=== PATIENT | female | born 2000 | race Caucasian/White ===

== ENCOUNTER 2023-06-01 14:01 | Outpatient (OUT) | payer OTHER, BC, SELFPAY ==
--- NOTE | 2023-06-01 14:04 | US_ITS ---
[address] [address] Patient Name: FABIEN PERAZA MRN: [id number] date: 2000 Sex: F Assigned Patient Location: US Current Patient Location: US Accession/Order Number: [id number] Exam Date: 06/01/2023 14:04 Report Date: 06/01/2023 15:25 At the request of: MELO LAM Procedure: US OB transvaginal EXAMINATION: US OB transvaginal HISTORY: MISSED MENSES COMPARISON: No relevant comparison available. FINDINGS: Dsouza intrauterine gestation Gestational sac: 1.4 cm, 5 weeks 4 days CRL: 1.6 mm Yolk sac: 3.6 mm Heart rate: Not observed Cervix: Closed, 3.1 cm The uterus is normal, anteverted, anteflexed The ovaries are normal Clinical age: 8 weeks 5 days Clinical EARNEST: 01/06/2024 Ultrasound age: 5 weeks 4 days Ultrasound EARNEST: 01/28/2024 US/US OB transvaginal IMPRESSION: Early intrauterine gestation measuring 5 weeks 4 days Electronically authenticated by: JYOTHI GUZMAN Date: 06/01/2023 15:25
== END 2023-06-01 14:02 | disposition home or self-care (01) ==
LOC: US 14:03
PROVIDERS: Visit Provider Obstetrics & Gynecology
DX: N92.6 Irregular menstruation, unspecified (principal); Z34.91 Encounter for supervision of normal pregnancy, unspecified, first trimester; Z3A.01 Less than 8 weeks gestation of pregnancy
CPT/HCPCS: 76817

== ENCOUNTER 2023-06-07 08:00 | Outpatient (OUT) | payer OTHER, BC, SELFPAY ==
--- NOTE | 2023-06-07 08:02 | US_ITS ---
[address] [address] Patient Name: FABIEN PERAZA MRN: [id number] date: 2000 Sex: F Assigned Patient Location: Current Patient Location: Accession/Order Number: [id number] Exam Date: 06/07/2023 08:02 Report Date: 06/08/2023 02:42 At the request of: MELO LAM Procedure: US OB transvaginal EXAMINATION: US OB transvaginal HISTORY: VIABILITY COMPARISON: No relevant comparison available. FINDINGS: GESTATIONAL SAC: Present and normal appearing. YOLK SAC: Present and normal appearing. POLE: Present and normal appearing. CARDIAC: Present. UTERUS: Normal size and appearance. OVARIES: Right: Normal. Left: Normal. CERVIX: 4.4 cm in length and closed. CUL-DE-SAC: Normal. OTHER: None. AGE BY LMP: 9 weeks 4 days EARNEST BY LMP: 01/06/2024 AGE BY US CRL: 6 weeks 3 days EARNEST BY US CRL: 01/28/2024 US/US OB transvaginal IMPRESSION: 1. Single live intrauterine . Electronically authenticated by: JADE CASPER Date: 06/08/2023 02:42
== END 2023-06-07 08:01 | disposition home or self-care (01) ==
LOC: US 08:01
PROVIDERS: Visit Provider Obstetrics & Gynecology
DX: Z34.81 Encounter for supervision of other normal pregnancy, first trimester (principal); N92.6 Irregular menstruation, unspecified; Z3A.01 Less than 8 weeks gestation of pregnancy
CPT/HCPCS: 76817

== ENCOUNTER 2023-07-21 15:15 | Outpatient (OUT) | payer OTHER, BC, SELFPAY ==
--- OUTSIDE RECORDS SUMMARY | 2023-07-21 15:23 | XMS_ITS | CCD ---
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 Role Phone ROJAS, WICHO S Unavailable Unavailable ROJAS, WICHO S Unavailable Unavailable ROJAS, WICHO S Unavailable Unavailable ROJAS, WICHO S Unavailable Unavailable ROJAS, WICHO S Unavailable Unavailable ROJAS, WICHO S Unavailable Unavailable Radha Cuevas Primary Care Provider Catarino [place], Cari Smith Primary Care Provider Unav ailable Stephanie METAL TUBE CUTTER - POTATO CHIP FRIER, Nick Stein Primary Care Provid er Stephanie METAL TUBE CUTTER - POTATO CHIP FRIER, Nick Stein Primary Care Provid er Stephanie METAL TUBE CUTTER - POTATO CHIP FRIER, Nick Stein Primary Care Provid er NICK BROWN Primary Care Unavailable ZAK BEJARANO Admitting Unavailable ZAK BEJARANO Attending Unavailable STEPHANIE, NICK Stein Primary Care Unavailable PETE SOL Attending Unavailabl e PETE SOL Admitting Unavailabl e STEPHANIENICK SAHU Primary Care Unavailable ROLANDO, JUSTEEN Referring Unavailable STEPHANIE, NICK Stein Primary Care Unavailable JADE SOTO Referring Unavailable STEPHANIE, NICK Stein Primary Care Unavailable STEPHANIE, NICK Stein Referring Unavailable STEPHANIE, NICK Stein Primary Care Unavailable STEPHANIE, NICK Stein Referring Unavailable STEPHANIE, NICK Stein Primary Care Unavailable STEPHANIE, NICK Stein Referring Unavailable STEPHANIE, NICK Stein Primary Care Unavailable STEPHANIE, NICK Stein Referring Unavailable STEPHANIE, NICK Stein Primary Care Unavailable PETE SOL Referring Unavailabl e STEPHANIE, NICK Stein Primary Care Unavailable JADE SOTO Referring Unavailable MELO LAM Attending Unavailable NICK BROWN Primary Care Unavailable ROLANDO, JUSTEEN Referring Unavailable JACQUI RUSSELL Referring Unavailable STEPHANIE, NICK Stein Primary Care Unavailable STEPHANIE, NICK Stein Primary Care Unavailable ROLANDO, JUSTEEN Referring Unavailable ADITYA GALVAN Referring Unavailable STEPHANIE, NICK Stein Primary Care Unavailable Medications Current Medications Medication Drug Class(es) Dates Sig (Normalized) Sig (Original) acetaminophen 500 mg oral tablet (3 sources) Start: 09-25-2022 acetaminophen (TYLENOL) tablet 1,000 mg Start: 09-24-2022 acetaminophen (TYLENOL) tablet 650 mg take 2 tablets by mo uth every six hours as needed acetaminophen (TYLENOL) 325 MG tablet Take 650 mg by mouth every 6 hours as needed. 0 Active benzocaine 200 mg/ml / menthol 5 mg/ml topical spray (2 sources) Standardized Chemical Allergen Start: 09-24-2022 benzocaine-menthol (DERMOPLAST) 20-0.5 % spray 2 ml butorphanol tartrate 2 mg/ml injection (1 source) Opioid Agonist/Antagonis t Start: 09-24-2022 butorphanol (STADOL) injection 1 mg calcium chloride 0.0014 meq/ml / potassium chloride 0.004 meq/ml / sodium chloride 0.103 meq/ml / sodium lactate 0.028 meq/ml injectable solution (2 sources) Start: 09-24-2022 End: 09-25-2022 lactated ringers IV soln infusion 1 ml carboprost 0.25 mg/ml injection (1 source) Prostaglandin Analog Start: 09-24-2022 carboprost (HEMABATE) injection 250 mcg docusate sodium 100 mg oral capsule (2 sources) Start: 09-26-2022 take 1 capsule by mouth twice daily as needed for constipation docusate sodium (COLACE, DULCOLAX) 100 MG CAPS Take 100 mg by mouth 2 times daily as needed for Constipation 60 capsule 0 09/26/2022 Active Start: 09-25-2022 docusate sodiu m (COLACE) capsule 100 mg doxylamine succinate 10 mg / pyridoxine hydrochloride 10 mg delayed release oral tablet (1 source) Start: 02-16-2022 take 1 tablet by mouth once daily, then take 2 tablets by mouth once daily at bedtime, then take 1 tablet by mouth in the morning doxylamine-pyridoxine 10-10 MG TBEC Indications: Nausea and vomiting in Take 1 tablet by mouth daily i want the dose to be 2 tablets at bedtime nightly and one tablet in the am if needed 90 tablet 1 02/16/2022 Active ethinyl estradiol 0.03 mg / ferrous fumarate 75 mg / norethindrone 1.5 mg oral tablet (2 sources) Estrogen Start: 01-14-2020 Microgestin FE 1.5/30 1.5-30 MG-MCG Oral Tablet 01/14/2020 Provider: ethinyl estradiol 0.035 mg / norgestimate 0.25 mg oral tablet (1 source) Progestin, Estrogen Start: 03-15-2021 take 1 tablet by mouth once daily norgestimate-ethinyl estradiol (ORTHO-CYCLEN, 28,) 0.25-35 MG-MCG per tablet Indications: Irregular menstrual cycle Take 1 tablet by mouth daily 1 packet 12 03/15/2021 Active famotidine 20 mg oral tablet (1 source) Histamine-2 Receptor Antagonist Start: 09-25-2022 famotidine (PEPCID) tablet 20 mg ferrous sulfate 325 mg oral tablet (5 sources) Start: 09-25-2022 ferrous sulfate (IRON 325) tablet 325 mg Start: 09-14-2022 take 1 tablet by sharmaine twice daily ferrous sulfate (IRON 325) 325 (65 Fe) MG tablet Indications: Anemia during in third trimester Take 1 tablet by mouth 2 times daily 180 tablet 1 09/14/2022 Active ibuprofen 800 mg oral tablet (3 sources) Nonsteroidal Anti-inflammatory Drug Start: 09-26-2022 take 1 tablet by mouth every eight hours as needed for pain ibuprofen (ADVIL;MOTRIN) 800 MG tablet Take 1 tablet by mouth every 8 hours as needed for Pain 60 tablet 0 09/26/2022 Active Start: 09-25-2022 ibuprofen (ADV IL;MOTRIN) tablet 800 mg Start: 06-01-2013 take 1 tablet by sharmaine every six hours as needed for pain ibuprofen (IBU) 400 MG tablet Take 1 tablet by mouth every 6 hours as needed for Pain. 30 tablet 0 06/01/2013 Active Lactated Ringer's Solution (1 source) Start: 09-24-2022 lactated ringers bolus lanolin 1000 mg/ml topical cream (1 source) Start: 09-25-2022 lansinoh lanolin ointment 24 hr loratadine 10 mg / pseudoephedrine sulfate 240 mg extended release oral tablet (1 source) alpha-Adrenergic Agonist Start: 11-10-2015 take 10-240 mg by mouth once loratadine-pseudoephe drine (CLARITIN-D 24-HOUR) 10-240 MG per tablet Take 1 tablet by mouth daily 30 tablet 0 11/10/2015 Active 1 ml methylergonovine maleate 0.2 mg/ml injection (1 source) Ergot Derivative Start: 09-24-2022 methylergonovine (METHERGINE) injection 200 mcg miSOPROStol 0.1 mg oral tablet (1 source) Prostaglandin E1 Analog Start: 09-24-2022 miSOPROStol (CYTOTEC) tablet 900 mcg 1 ml nalbuphine hydrochloride 10 mg/ml injection (1 source) Opioid Agonist/Antagonist Start: 09-24-2022 nalbuphine (NUBAIN) injection 10 mg naloxone 0.4 mg in 10 mL sodium chloride syringe (1 source) Start: 09-24-2022 IntraVENous, PRN, Opioid Reversal, PRN if respiratory rate is less than 6 breaths per minute and patient is difficult to arouse., Starting on 09/24/22 at 2058 Notify provider STAT. Mix 9 mL of sodium chloride 0.9% with 0.4 mg (1 mL) of naloxone (NARCAN) in 10 mL syringe. (Note: dilution is 0.04 mg/mL) Giv e 0.08 mg (2 mL of special dilution), slow IV push, repeat up to 0.4 mg (10 mL) or until patient is responsive to physical stimulation and respiratory rate is equal to or greater than 6 breaths/min. &nb sp;Continue to observe, if no response within 3 minutes of administration of 0.4 mg (10 mL) total, repeat dose (0.4 mg as administered previously). Con centration 0.04 mg/mL nitrous oxide 50% inhalation 1 each (1 source) Start: 09-24-2022 nitrous oxide 50% inhalation 1 each ondansetron 4 mg disintegrating oral tablet (3 sources) Serotonin-3 Receptor Antagonist Start: 09-25-2022 ondansetron (ZOFRAN-ODT) disintegrating tablet 8 mg Start: 09-24-2022 ondansetron (Z OFRAN) injection 4 mg oxyCODONE hydrochloride 5 mg oral tablet (1 source) Opioid Agonist Start: 03-12-2023 oxyCODONE (NUPUR ICODONE) immediate release tablet 5 mg oxytocin (PITOCIN) 30 units in 500 mL infusion (2 sources) Start: 09-25-2022 oxytocin (ALVARO KAHLIL) 30 units in 500 mL infusion Start: 09-24-2022 oxytocin (ALVARO KAHLIL) 30 units in 500 mL infusion MV-Min-Fe Fum-FA-DH A ( 1 PO) (9 sources) MV-Min- Fe Fum-FA-DHA ( 1 PO) Take by mouth 0 Active 5 ml sodium chloride 9 mg/ml injection (6 sources) Start: 09-24-2022 0.9 % sodium c hloride infusion Start: 09-24-2022 sodium chlorid e flush 0.9 % injection 5-40 mL witch mt 500 mg/ml medicated pad (1 source) Start: 09-24-2022 witch mt-gl ycerin (TUCKS) pad Completed/Discontinued Medications Medication Drug Class(es) Dates Sig (Normalized) Sig (Original) 10 ml ePHEDrine sulfate 5 mg/ml injection (1 source) alpha-Adrenergic Agonist, beta-Adrenergic Agonist, Norepinephrine Releasing Agent Start: 09-24-2022 5 mg, IntraVENous, EVERY 5 MIN PRN, 3 doses, Starting on 09/24/22 at 2100, Until Discontinued, hypotension please call anesthesia prior to dosing 200 ml ropivacaine hydrochloride 2 mg/ml injection (1 source) Amide Local Anesthetic Start: 09-24-2022 8 mL/hr, Epidural, CONTINUOUS, Starting on 09/24/22 at 2130, Until Discontinued Until delivery 100 ml tranexamic acid 10 mg/ml injection (1 source) Antifibrinolytic Agent Start: 09-24-2022 End: 09-25-2022 tranexamic acid-NaCl IVPB premix 1,000 mg Problems Active Problems Problem Classification Problem Date Documented Da te Episodic/Chronic Cardiac dysrhythmias (2 sources) Postural orthostatic tachycardia syndrome ; Translations: [POTS (postural orthostatic tachycardia syndrome)] Chronic Conditions associated with dizziness or vertigo (3 sources) Lightheadedness; Translations: [Dizziness and giddiness] Onset: 08-16-2022 Episodic Early or threatened labor (11 sources) Premature uterine contraction; Translations: [False labor before 37 completed weeks of gestation, unspecified trimester] Onset: 08-02-2022 Episodic Hypertension complicating ; childbirth and the puerperium (4 sources) Elevated blood pressure; Translations: [Unspecified maternal hypertension, unspecified trimester] Onset: 09-14-2022 Chronic Immunizations and screening for infectious disease (2 sources) Exposure to communicable disease; Translations: [Exposure To Contagious Viral Disease] Onset: 01-14-2020 Episodic Nonspecific chest pain (2 sources) Chest pain; Translations: [Chest pain, unspecified] Onset: 08-16-2022 Episodic Other circulatory disease (1 source) Postural orthostatic tachycardia syndrome ; Translations: [Postural orthostatic tachycardia syndrome (POTS)] Onset: 08-16-2022 Episodic Other non-traumatic joint disorders (1 source) Hip pain; Translations: [Hip Pain] Onset: 10-12-2017 Episodic Other screening for suspected conditions (not mental disorders or infectious disease) (3 sources) Abnormal results function studies of central nervous system; Translations: [Abnormal results of other function studies of central nervous system] Onset: 08-16-2022 Episodic Polyhydramnios and other problems of amniotic cavity (4 sources) Prolonged rupture of membranes; Translations: [Premature rupture of membranes, unspecified as to length of time between rupture and onset of labor, unspecified weeks of gestation] Onset: 09-24-2022 Episodic Residual codes; unclassified (1 source) Gestation period, 29 weeks; Translations: [29 weeks gestation of ] Episodic Residual codes; unclassified (1 source) Gestation period, 36 weeks; Translations: [36 weeks gestation of ] Episodic Residual codes; unclassified (1 source) 29 weeks gestation of ; Translations: [29 weeks gestation of ] Onset: 08-16-2022 Episodic Unclassified (1 source) Hip Pain / [id number]() Onset: 10-12-2017 Past or Other Problems Problem Classification Problem Date Documented Da te Episodic/Chronic Cardiac dysrhythmias (3 sources) Palpitations; Translations: [Palpitations] Onset: 01-13-2022 Episodic Other complications of (1 source) Uterine size-date discrepancy, third trimester; Translations: [Uterine size-date discrepancy, third trimester] Onset: 09-08-2022 Episodic Other connective tissue disease (2 sources) Pain in right thigh; Translations: [Pain in right thigh] Onset: 09-21-2017 Episodic Other and delivery including normal (12 sources) Normal ; Translations: [Encounter for supervision of normal , unspecified, unspecified trimester] Onset: 02-21-2022 Episodic Residual codes; unclassified (1 source) 36 weeks gestation of ; Translations: [36 weeks gestation of ] Onset: 09-14-2022 Episodic Residual codes; unclassified (1 source) 35 weeks gestation of ; Translations: [35 weeks gestation of ] Onset: 09-08-2022 Episodic Unclassified (2 sources) Finding of body mass index; Translations: [Body Mass Index] Onset: 01-14-2020 NEGATED: Highlighted row has been ruled out!Unclassified (1 source) No known active problems 02-21-2022 Results Test Name Value Interpretation Reference Range Facil ity Surgical Pathologyon 023 Surgical Pathology (NOTE) -- Diagnosis -- PLACENTA, DELIVERED: -THIRD TRIMESTER PLACENTA WITH THREE-VESSEL CORD WITH FOCAL MINIMAL ACUTE INFLAMMATION OF UMBILICAL VEIN. -UNREMARKABLE MEMBRANES. -PLACENTAL DISC WITH FOCAL FIBROSIS AND ORGANIZING FIBRIN AT MATERNAL SURFACE AND ADHERENT BLOOD CLOT TO MATERNAL SURFACE. Artem Jones M.D. Electronically Signed Out [email or web address]/27/2022 Clinical Information Pre-op Diagnosis: CAN x 1, CORD AROUND BODY, FOCAL ABRUPTION NOTED BY PHYSICIAN Operative Findings: PLACENTA tm Source of Specimen A: PLACENTA Gross Description FABIEN PERAZA, PLACENTA Placenta with attached membranes and umbilical cord. Also received within the specimen container is a 6.0 x 5.0 x 2.0 cm aggregate of red gelatinous blood clot. UMBILICAL CORD Length: 33.6 cm Diameter: 1.5 cm True knots: No Number of vessels: 3 Spiraling: Longo to pale yellow and loosely coiled Insertion into surface: Eccentric, 2.8 cm to the disc edge MEMBRANES Color: Longo, thin and translucent with a marginal insertion Meconium staining: No SURFACE Color: Longo-blue and well-vascularized Subchorionic fibrin: Patchy and marginal comprising involves less than 5% of the disc MATERNAL SURFACE Cotyledons: -All present and intact: Yes with adherent red gelatinous blood clot, measuring up to 7.5 cm -Focal lesions: There is a 1.7 cm longo, fibrotic and focally cystic lesion, 1.5 cm to the disc edge. This area comprises less than 5% of the disc volume. Placental size: 17.5 x 15.5 x 4.0 cm Shape: Circular Weight: 583 grams Number of cassettes: 5c, with fibrotic lesion 4 and 5 with maternal surface and adherent blood clot and focally ragged maternal surface. tm Microscopic Description Umbilical cord: Focal minimal acute inflammation of umbilical vein. Membranes: Unremarkable Meconium staining: No Infarcts: No Intervillous thrombi: No Subchorionic fibrin: Not significantly increased Villous maturation: Appropriate Nucleated erythrocytes in villous capillaries: Not increased Other: Few microcalcifications, focal fibrosis and organizing fibrin at maternal surface and adherent blood clot to maternal surface. SURGICAL PATHOLOGY CONSULTATION Patient Name: FABIEN PERAZA [facility] Rec: [id number] Path Number: [id number] [facility] [address] [place] [id number] [facility] Comment on above: Performed By: #### U CGP #### [facility] [address] [place] [address] Single Fold Machine Operator: Diego Bashir MD Type + Screenon 09-25-2022 Type + Screen Sample Expiration 09/27/2022,2359 Arm Band Number [id number] ABO/Rh(D) A POSITIVE Antibody Screen NEGATIVE [facility] Comment on above: Performed By: #### U CGP #### [facility] [address] [place] [address] Single Fold Machine Operator: Diego Bashir MD CBC with Auto Differentialon 09-24-2022 Absolute Eos # 0.08 [facility] Absolute Immature Granulocyte 0.11 [facility] Absolute Lymph # 2.52 [facility] [email or web address] Absolute Mcminn # 0.80 [facility] [email or web address] Basophils (Bld) [#/Vol] 0.05 10*3/uL [facility] Basophils/100 WBC (Bld) 1 % 0 - 2 % [facility] Eosinophils/100 WBC (Bld) 1 % 1 - 4 % [facility] Hematocrit (Bld) [Volume fraction] 31.9 % Low 36.3 - 47.1 % [facility] Hemoglobin (Bld) [Mass/Vol] 10.5 g/dL Low 11.9 - 15.1 g/dL [facility] Immature granulocytes/100 WBC (Bld) 1 % High 0 [facility] Interpretation and review of laboratory results Abnormal [facility] Lymphocytes/100 WBC (Bld) 25 % 24 - 43 % [facility] MCH (RBC) [Entitic mass] 25.1 pg Low 25.2 - 33.5 pg [facility] MCHC (RBC) [Mass/Vol] 32.9 g/dL 28.4 - 34.8 g/dL [facility] MCV (RBC) [Entitic vol] 76.3 fL Low 82.6 - 102.9 fL [facility] Monocytes/100 WBC (Bld) 8 % 3 - 12 % [facility] NRBC Automated 0.0 0.0 per 100 WBC [facility] Platelet distribution width (Bld) [Ratio] 14.7 % High 11.8 - 14.4 % [facility] Platelet mean volume (Bld) [Entitic vol] 8.7 fL 8.1 - 13.5 fL [facility] Platelets (Bld) [#/Vol] 298 10*3/uL [facility] RBC (Bld) [#/Vol] 4.18 10*6/uL 3.95 - 5.11 m/uL [facility] Segmented neutrophils/100 WBC (Bld) 64 % 36 - 65 % [facility] Segs Absolute 6.71 [facility] WBC (Bld) [#/Vol] 10.3 10*3/uL [facility] CBC with Diffon 09-24-2022 Abs. Basophil 0.05 k/uL Normal 0.00-0.20 [facility] Comment on above: Performed By: #### U CGP #### [facility] [employer] [address] [place], [place] [id number] Single Fold Machine Operator: Diego Bashir MD Abs.Imm.Granulocyte 0.11 k/uL Normal 0.00-0.30 [facility] Comment on above: Performed By: #### U CGP #### [address] [address] Single Fold Machine Operator: Diego Bashir MD Abs.Neutrophil (Seg) 6.71 k/uL Normal 1.50-8.10 [facility] Comment on above: Performed By: #### U CGP #### [address] [address] Single Fold Machine Operator: Diego Bashir MD Basophils/100 WBC (Bld) 1 % Normal 0-2 [facility] Comment on above: Performed By: #### U CGP #### [address] [address] Single Fold Machine Operator: Diego Bashir MD Eosinophils (Bld) [#/Vol] 0.08 10*3/uL Normal 0.00-0.44 [facility] Comment on above: Performed By: #### U CGP #### [address] [address] Single Fold Machine Operator: Diego Bashir MD Eosinophils/100 WBC (Bld) 1 % Normal 1-4 [facility] Comment on above: Performed By: #### U CGP #### [address] [address] Single Fold Machine Operator: Diego Bashir MD Erythrocyte distribution width (RBC) [Ratio] 14.7 % High 11.8-14.4 [facility] Comment on above: Performed By: #### U CGP #### [address] [address] Single Fold Machine Operator: Diego Bashir MD Hematocrit (Bld) [Volume fraction] 31.9 % Low 36.3-47.1 [facility] Comment on above: Performed By: #### U CGP #### [address] [address] Single Fold Machine Operator: Diego Bashir MD Hemoglobin (Bld) [Mass/Vol] 10.5 g/dL Low 11.9-15.1 [facility] Comment on above: Performed By: #### U CGP #### [address] [address] Single Fold Machine Operator: Diego Bashir MD Immature granulocytes/100 WBC (Bld) 1 % High 0 [facility] Comment on above: Performed By: #### U CGP #### [address] [address] Single Fold Machine Operator: Diego Bashir MD Lymphocytes (Bld) [#/Vol] 2.52 10*3/uL Normal 1.10-3.70 [facility] Comment on above: Performed By: #### U CGP #### [address] [address] Single Fold Machine Operator: Diego Bashir MD Lymphocytes/100 WBC (Bld) 25 % Normal 24-43 [facility] Comment on above: Performed By: #### U CGP #### [address] [address] Single Fold Machine Operator: Diego Bashir MD MCH (RBC) [Entitic mass] 25.1 pg Low 25.2-33.5 [facility] Comment on above: Performed By: #### U CGP #### [address] [address] Single Fold Machine Operator: Diego Bashir MD MCHC (RBC) [Mass/Vol] 32.9 g/dL Normal 28.4-34.8 [facility] Comment on above: Performed By: #### U CGP #### [address] [address] Single Fold Machine Operator: Dieog Bashir MD MCV (RBC) [Entitic vol] 76.3 fL Low 82.6-102.9 [facility] Comment on above: Performed By: #### U CGP #### [employer] [address] Single Fold Machine Operator: Diego Bashir MD Monocytes (Bld) [#/Vol] 0.80 10*3/uL Normal 0.10-1.20 [facility] Comment on above: Performed By: #### U CGP #### [address] [address] Single Fold Machine Operator: Diego Bashir MD Monocytes/100 WBC (Bld) 8 % Normal 3-12 [facility] Comment on above: Performed By: #### U CGP #### [address] [address] Single Fold Machine Operator: Diego Bashir MD Neutrophil (Seg) 64 % Normal 36-65 [facility] Comment on above: Performed By: #### U CGP #### [address] [address] Single Fold Machine Operator: Diego Bashir MD NRBC Automated 0.0 per 100 WBC Normal 0.0 [facility] Comment on above: Performed By: #### U CGP #### [address] [address] Single Fold Machine Operator: Diego Bashir MD Platelet mean volume (Bld) [Entitic vol] 8.7 fL Normal 8.1-13.5 [facility] Comment on above: Performed By: #### U CGP #### [address] [address] Single Fold Machine Operator: Diego Bashir MD Platelets (Bld) [#/Vol] 298 10*3/uL Normal 138-453 [facility] Comment on above: Performed By: #### U CGP #### [address] [address] Single Fold Machine Operator: Diego Bashir MD RBC (Bld) [#/Vol] 4.18 10*6/uL Normal 3.95-5.11 [facility] Comment on above: Performed By: #### U CGP #### [facility] [address] [place] [address] Single Fold Machine Operator: Diego Bashir MD WBC (Bld) [#/Vol] 10.3 10*3/uL Normal 3.5-11.3 [facility] Comment on above: Performed By: #### U CGP #### [address] [address] Single Fold Machine Operator: Diego Bashir MD Comp Metabolic Profon 2022 Albumin [Mass/Vol] 3.5 g/dL Normal 3.5-5.2 [facility] Comment on above: Performed By: #### U CGP #### [address] [address] Single Fold Machine Operator: Diego Bashir MD Albumin/Glob Ratio 1.1 Normal 1.0-2.5 [facility] Comment on above: Performed By: #### U CGP #### [address] [address] Single Fold Machine Operator: Diego Bashir MD Alkaline Phos 140 U/L High 35-104 [facility] Comment on above: Performed By: #### U CGP #### [address] [address] Single Fold Machine Operator: Diego Bashir MD ALT [Catalytic activity/Vol] 8 U/L Normal 5-33 [facility] Comment on above: Performed By: #### U CGP #### [address] [address] Single Fold Machine Operator: Diego Bashir MD Anion gap [Moles/Vol] 15 mmol/L Normal 9-17 [facility] Comment on above: Performed By: #### U CGP #### [address] [address] Single Fold Machine Operator: Diego Bashir MD AST [Catalytic activity/Vol] 14 U/L Normal <32 [facility] Comment on above: Performed By: #### U CGP #### [address] [place] [address] Single Fold Machine Operator: Diego Bashir MD Bilirubin [Mass/Vol] 0.3 mg/dL Normal 0.3-1.2 [facility] Comment on above: Performed By: #### U CGP #### [address] [address] Single Fold Machine Operator: Diego Bashir MD BUN/CRE Ratio 7 Low 9-20 [facility] Comment on above: Performed By: #### U CGP #### [address] [address] Single Fold Machine Operator: Diego Bashir MD Calcium [Mass/Vol] 8.9 mg/dL Normal 8.6-10.4 [facility] Comment on above: Performed By: #### U CGP #### [address] [address] Single Fold Machine Operator: Diego Bashir MD Chloride [Moles/Vol] 103 mmol/L Normal 98-107 [facility] Comment on above: Performed By: #### U CGP #### [address] [address] Single Fold Machine Operator: Diego Bashir MD CO2 [Moles/Vol] 18 mmol/L Low 20-31 [facility] Comment on above: Performed By: #### U CGP #### [address] [address] Single Fold Machine Operator: Diego Bashir MD Creatinine [Mass/Vol] 0.42 mg/dL Low 0.50-0.90 [facility] Comment on above: Performed By: #### U CGP #### [address] [address] Single Fold Machine Operator: Diego Bashir MD GFR/1.73 sq M.predicted among non-blacks MDRD (S/P/Bld) [Vol rate/Area] mL/min/{1.73_m2} Normal >60 [facility] Comment on above: Result Comment: These results are not intended for use in patients <18 years of age. eGFR results are calculated without a race factor using the 2020 CKD-EPI equation. Careful clinical correlation is recommended, particularly when comparing to results calculated using previous equations. The CKD-EPI equation is less accurate in patients with extremes of muscle mass, extra-renal metabolism of creatine, excessive creatine ingestion, or following therapy that affects renal tubular secretion. Performed By: #### U CGP #### [facility] [place] [address] Single Fold Machine Operator: Diego Bashir MD Glucose [Mass/Vol] 76 mg/dL Normal 70-99 [facility] Comment on above: Performed By: #### U CGP #### [facility] [address] [place] [address] Single Fold Machine Operator: Diego Bashir MD Potassium [Moles/Vol] 3.6 mmol/L Low 3.7-5.3 [facility] Comment on above: Performed By: #### U CGP #### [facility] [place] [address] Single Fold Machine Operator: Diego Bashir MD Protein [Mass/Vol] 6.6 g/dL Normal 6.4-8.3 [facility] Comment on above: Performed By: #### U CGP #### [facility] [address] [place] [address] Single Fold Machine Operator: Diego Bashir MD Sodium [Moles/Vol] 136 mmol/L Normal 135-144 [facility] Comment on above: Performed By: #### U CGP #### [facility] [place] [address] Single Fold Machine Operator: Diego Bashir MD Urea nitrogen [Mass/Vol] 3 mg/dL Low 6-20 [facility] Comment on above: Performed By: #### U CGP #### [facility] [address] [place] [address] Single Fold Machine Operator: Diego Bashir MD [facility] 09-24-2022 Albumin [Mass/Vol] 3.5 g/dL 3.5 - 5.2 g/dL [facility] Albumin/Globulin [Mass ratio] 1.1 {ratio} 1.0 - 2.5 [facility] ALP [Catalytic activity/Vol] 140 U/L High 35 - 104 U/L [facility] ALT [Catalytic activity/Vol] 8 U/L 5 - 33 U/L [facility] Anion gap [Moles/Vol] 15 mmol/L 9 - 17 mmol/L [facility] AST [Catalytic activity/Vol] 14 U/L NINF - 32 U/L [facility] Bilirubin [Mass/Vol] 0.3 mg/dL 0.3 - 1.2 mg/dL [facility] Calcium [Mass/Vol] 8.9 mg/dL 8.6 - 10.4 mg/dL [facility] Chloride [Moles/Vol] 103 mmol/L 98 - 107 mmol/L [facility] CO2 [Moles/Vol] 18 mmol/L Low 20 - 31 mmol/L [facility] Creatinine [Mass/Vol] 0.42 mg/dL Low 0.50 - 0.90 mg/dL [facility] GFR/1.73 sq M.predicted MDRD (S/P/Bld) [Vol rate/Area] - [facility] Comment on above: These results are not intended for use in patients <18 years of age. eGFR results are calculated without a race factor using the 2020 CKD-EPI equation. Careful clinical correlation is recommended, particularly when comparing to results calculated using previous equations. The CKD-EPI equation is less accurate in patients with extremes of muscle mass, extra-renal metabolism of creatine, excessive creatine ingestion, or following therapy that affects renal tubular secretion. Glucose [Mass/Vol] 76 mg/dL 70 - 99 mg/dL [facility] Interpretation and review of laboratory results Abnormal [facility] Potassium [Moles/Vol] 3.6 mmol/L Low 3.7 - 5.3 mmol/L [facility] Protein [Mass/Vol] 6.6 g/dL 6.4 - 8.3 g/dL [facility] Sodium [Moles/Vol] 136 mmol/L 135 - 144 mmol/L [facility] Urea nitrogen [Mass/Vol] 3 mg/dL Low 6 - 20 mg/dL [facility] Urea nitrogen/Creatinine (Bld) [Mass ratio] 7 Low 9 - 20 [facility] DRUG SCREEN MULTI URINEon Amphetamine Screen, Ur Negative NEGATIVE [facility] Comment on above: (Positive cutoff 1000 ng/mL) Barbiturate Screen, Ur Negative NEGATIVE [facility] Comment on above: (Positive cutoff 200 ng/mL) Benzodiazepine Screen, Urine Negative NEGATIVE [facility] Comment on above: (Positive cutoff 200 ng/mL) Buprenorphine Urine Negative NEGATIVE [facility] Comment on above: (Positive cutoff 5 ng/ml) Cannabinoid Scrn, Ur Negative NEGATIVE [facility] Comment on above: (Positive cutoff 50 ng/mL) Cocaine Metabolite, Urine Negative NEGATIVE [facility] Comment on above: (Positive cutoff 300 ng/mL) Fentanyl, Ur Negative NEGATIVE [facility] Comment on above: (Positive cutoff 5 ng/ml) Methadone Screen, Urine Negative NEGATIVE [facility] Comment on above: (Positive cutoff 300 ng/mL) Opiates, Urine Negative NEGATIVE [facility] Comment on above: (Positive cutoff 300 ng/mL) Oxycodone Screen, Ur Negative NEGATIVE [facility] Comment on above: (Positive cutoff 100 ng/mL) Phencyclidine, Urine Negative NEGATIVE [facility] Comment on above: (Positive cutoff 25 ng/mL) [facility] Drug Scr, Abuse, Uron 2022 Amphetamine(s),Ur Negative Normal NEG [facility] Comment on above: Result Comment: (Positive cutoff 1000 ng/mL) Performed By: #### D AU #### [facility] [address] [place] [address] Single Fold Machine Operator: Artem Jones MD Barbiturate(s),Ur Negative Normal NEG [facility] Comment on above: Result Comment: (Positive cutoff 200 ng/mL) Performed By: #### D AU #### [address] [place], [place] [phone] Single Fold Machine Operator: Artem Jones MD Benzodiazepine(s) Negative Normal NEG [facility] Comment on above: Result Comment: (Positive cutoff 200 ng/mL) Performed By: #### D AU #### [address] [place], [place] [phone] Single Fold Machine Operator: Artem Jones MD Buprenorphrine, Ur Negative Normal NEG [facility] Comment on above: Result Comment: (Positive cutoff 5 ng/ml) Performed By: #### D AU #### [address] [place], [place] [id number] Single Fold Machine Operator: Artem Jones MD Cannabinoid(s),Ur Negative Normal [facility] Comment on above: Result Comment: (Positive cutoff 50 ng/mL) Performed By: #### D AU #### [address] [place] [address] Single Fold Machine Operator: Artem Jones MD Cocaine Metabolite Negative [facility] Comment on above: Result Comment: (Positive cutoff 300 ng/mL) Performed By: #### D AU #### [address] [place] [address] Single Fold Machine Operator: Artem Jones MD Fentanyl, Urine Negative [facility] Comment on above: Result Comment: (Positive cutoff 5 ng/ml) Performed By: #### D AU #### [address] [place], [place] [phone] Single Fold Machine Operator: Artem Jones MD Methadone Ql (U) Negative Normal NEG [facility] Comment on above: Result Comment: (Positive cutoff 300 ng/mL) Performed By: #### D AU #### [address] [place], [place] [phone] Single Fold Machine Operator: Artem Jones MD Opiate(s), Ur Negative Normal NEG [facility] Comment on above: Result Comment: (Positive cutoff 300 ng/mL) Performed By: #### D AU #### [address] [place], [place] [phone] Single Fold Machine Operator: Artem Jones MD Oxycodone, Urine Negative Normal NEG [facility] Comment on above: Result Comment: (Positive cutoff 100 ng/mL) Performed By: #### D AU #### [address] [place], [place] 1039383 Single Fold Machine Operator: Artem Jones MD Phencyclidine, Ur Negative Normal NEG [facility] Comment on above: Result Comment: (Positive cutoff 25 ng/mL) Performed By: #### D AU #### [address] [place], [place] [phone] Single Fold Machine Operator: Artem Jones MD Lactate Dehydrogenaseon 09-14 LDH [Catalytic activity/Vol] 158 U/L Normal 135-214 [facility] Comment on above: Performed By: #### U CGP #### [facility] [address] [place] [address] Single Fold Machine Operator: Diego Bashir MD Cholesterol in LDL [Mass/Vol] 158 U/L 135 - 214 U/L [facility] Microscopic Urinalysison Bacteria, UA 2+ Abnormal None [facility] Epithelial Cells UA 0 TO [address] [facility] Interpretation and review of laboratory results Abnormal [facility] Mucus, UA TRACE Abnormal None [facility] RBC clumps Auto (Urine sed) [#/Area] 0 TO 2 [facility] WBC, UA 0 TO 2 [facility] No Panel Informationon 09-24 [facility] Protein / Creatinine Ratio, Urineon 03-11-2023 Creatinine, Ur 96.6 mg/dL 28.0 - 217.0 mg/dL [facility] Protein (U) [Mass/Vol] 17 mg/dL [facility] Comment on above: No normal range esta blished. Urine Total Protein Creatinine Ratio 0.18 0.00 - 0.20 [facility] Protein,Tot,Clark Uron 2022 Creatinine [Mass/Vol] 96.6 mg/dL Normal 28.0-217.0 [facility] Comment on above: Performed By: #### P RENAT #### [facility] [employer] [facility] [place] [address] Single Fold Machine Operator: Diego Bashir MD [facility] [address] [place] [address] [place] [address] Single Fold Machine Operator: Artem Jones MD Tot Prot. Conc. 17 mg/dL Normal [facility] Comment on above: Result Comment: No n ormal range established. Performed By: #### P RENAT #### [facility] [employer] [facility] [place] [address] Single Fold Machine Operator: Diego Bashir MD [facility] [address] [place] [address] [place]. [place] [phone] Single Fold Machine Operator: Artem Jones MD TP/Cre Ratio 0.18 Normal 0.00-0.20 [facility] Comment on above: Performed By: #### P RENAT #### [address] [address] Single Fold Machine Operator: Diego Bashir MD [facility] [address] [place] [address] [place] [address] Single Fold Machine Operator: Artem Jones MD TYPE AND SCREENon 09-24-2022 ABO/Rh Positive [facility] Arm Band Number [id number] [facility] Expiration Date 09/27/2022,2359 [facility] Urinalysison 09-24-2022 Bilirubin Urine Negative NEGATIVE [facility] Color, UA Yellow Yellow [facility] Glucose Auto test strip (U) [Mass/Vol] Negative NEGATIVE [facility] Interpretation and review of laboratory results Abnormal [facility] Ketones (U) [Mass/Vol] TRACE Abnormal NEGATIVE [facility] Leukocyte esterase Auto test strip Ql (U) Negative NEGATIVE [facility] Nitrite Auto test strip Ql (U) Negative NEGATIVE [facility] Protein (U) [Mass/Vol] 7.5 mg/dL 5.0 - 9.0 [facility] Protein (U) [Mass/Vol] Negative NEGATIVE [facility] Specific Hyden, UA 1.010 1.010 - 1.[address] [facility] Turbidity UA Clear Clear [facility] Urine Hgb Negative NEGATIVE [facility] Urobilinogen, Urine Normal Normal [facility] Urinalysis, Routineon 2022 Bilirubin, SemiQt,Ur Negative Normal NEG [facility] Comment on above: Performed By: #### U CGP #### [facility] [address] [place] [address] Single Fold Machine Operator: Diego Bashir MD Blood, Urine Negative Normal [facility] Comment on above: Performed By: #### U CGP #### [facility] [address] [phone] Single Fold Machine Operator: Diego Bashir MD Clarity (U) Clear Normal CLEAR [facility] Comment on above: Performed By: #### U CGP #### [facility] [address] [place] [address] Single Fold Machine Operator: Diego Bashir MD Color (U) Yellow Normal YEL [facility] Comment on above: Performed By: #### U CGP #### [facility] [address] [place] [address] Single Fold Machine Operator: Diego Bashir MD Glucose Ql (U) Negative Normal NEG [facility] Comment on above: Performed By: #### U CGP #### [address] [address] Single Fold Machine Operator: Diego Bashir MD Ketones Ql (U) TRACE Abnormal NEG [facility] Comment on above: Performed By: #### U CGP #### [address] [address] Single Fold Machine Operator: Diego Bashir MD Leukocyte esterase Test strip Ql (U) Negative Normal NEG [facility] Comment on above: Performed By: #### U CGP #### [address] [address] Single Fold Machine Operator: Diego Bashir MD Nitrite,Ur Negative Normal NEG [facility] Comment on above: Performed By: #### U CGP #### [address] [address] Single Fold Machine Operator: Diego Bashir MD PH,Ur 7.5 Normal 5.0-9.0 [facility] Comment on above: Performed By: #### U CGP #### [address] [address] Single Fold Machine Operator: Diego Bashir MD Protein Ql (U) Negative Normal NEG [facility] Comment on above: Performed By: #### U CGP #### [address] [address] Single Fold Machine Operator: Diego Bashir MD Spec. Hyden,Ur 1.010 Normal 1.010-1.020 [facility] Comment on above: Performed By: #### U CGP #### [address] [address] Single Fold Machine Operator: Diego Bashir MD Urobilinogen,Ur Normal Normal NORM [facility] Comment on above: Performed By: #### U CGP #### [address] [address] Single Fold Machine Operator: Diego Bashir MD Urinalysis,Microon 3 Bacteria 2+ Abnormal NONE [facility] Comment on above: Performed By: #### U CGP #### [address] [address] Single Fold Machine Operator: Diego Bashir MD Epithelial cells LM Ql (Urine sed) 0 TO 2 Normal 0-25 [facility] Comment on above: Performed By: #### U CGP #### [address] [address] Single Fold Machine Operator: Diego Bashir MD Mucus Strands TRACE Abnormal NONE [facility] Comment on above: Performed By: #### U CGP #### [address] [address] Single Fold Machine Operator: Diego Bashir MD Urine RBC's 0 TO 2 Normal 0-2 [facility] Comment on above: Performed By: #### U CGP #### [address] [address] Single Fold Machine Operator: Diego Bashir MD Urine WBC's 0 TO 2 Normal 0-5 [facility] Comment on above: Performed By: #### U CGP #### [address] [address] Single Fold Machine Operator: Diego Bashir MD Rule Out Grp.B Strepon 09-18 Rule Out Grp.B Strep Specimen Descriptio n .VAGINA Culture NEGATIVE FOR GROUP B STREPTOCOCCI Report Status FINAL 09/18/2022 Normal [facility] Comment on above: Performed By: #### R OGBS #### [address] [address] Single Fold Machine Operator: Diego Bashir MD EVENT MONITORon 09-16-2022 [address] [address] EVENT MONITOR PATIENT NAME: FABIEN PERAZA : 2000 MED REC NO: [id number] ROOM: ACCOUNT NO: [id number] ADMIT DATE: 08/16/2022 PROVIDER: Jade Soto MD CARDIOVASCULAR DIAGNOSTIC DEPARTMENT DATE OF STUDY: 08/16/2022 ORDERING PROVIDER: Jade Soto MD PRIMARY CARE PROVIDER: ASHELY Padilla INTERPRETING PHYSICIAN: Jade Soto MD DIAGNOSIS: Dizziness and giddiness. PHYSICIAN INTERPRETATION: 1. Predominant rhythm: Normal sinus rhythm. 2. PAC 0.01%. 3. PVC 0.01%. Multiple symptoms were reported and were associated with heart rates in the 100-110 bpm range. Clinical correlation required. JADE SOTO MD SB/JENIFER_EDIT Doc#: Unknown CC: ASHELY Padilla Normal [facility] CBCon 09-14-2022 Erythrocyte distribution width (RBC) [Ratio] 14.4 % Normal 11.8-14.4 [facility] Comment on above: Performed By: #### P RENAT #### [address] [address] Single Fold Machine Operator: Diego Bashir MD [address] [place] [address] Single Fold Machine Operator: Artem Jones MD Hematocrit (Bld) [Volume fraction] 31.2 % Low 36.3-47.1 [facility] Comment on above: Performed By: #### P RENAT #### [address] [address] Single Fold Machine Operator: Diego Bashir MD [address] [place] [address] Single Fold Machine Operator: Artem Jones MD Hemoglobin (Bld) [Mass/Vol] 9.8 g/dL Low 11.9-15.1 [facility] Comment on above: Performed By: #### P RENAT #### [address] [address] Single Fold Machine Operator: Diego Bashir MD [address] [place] [phone] Single Fold Machine Operator: Artem Jones MD MCH (RBC) [Entitic mass] 24.9 pg Low 25.2-33.5 [facility] Comment on above: Performed By: #### P RENAT #### [address] [id number] Single Fold Machine Operator: Diego Bashir MD [address] [place] [phone] Single Fold Machine Operator: Artem Jones MD MCHC (RBC) [Mass/Vol] 31.4 g/dL Normal 28.4-34.8 [facility] Comment on above: Performed By: #### P RENAT #### [address] [phone] Single Fold Machine Operator: Diego Bashir MD [address] [place] [phone] Single Fold Machine Operator: Artem Jones MD MCV (RBC) [Entitic vol] 79.2 fL Low 82.6-102.9 [facility] Comment on above: Performed By: #### P RENAT #### [address] [address] Single Fold Machine Operator: Diego Bashir MD [address] [place] [phone] Single Fold Machine Operator: Artem Jones MD NRBC Automated 0.0 per 100 WBC Normal 0.0 [facility] Comment on above: Performed By: #### P RENAT #### [address] [address] Single Fold Machine Operator: Diego Bashir MD [address] [place] [phone] Single Fold Machine Operator: Artem Jones MD Platelet mean volume (Bld) [Entitic vol] 8.3 fL Normal 8.1-13.5 [facility] Comment on above: Performed By: #### P RENAT #### [place] [address] [place] [address] Single Fold Machine Operator: Diego Bashir MD [facility] [address] [place] [address] [place] [address] Single Fold Machine Operator: Artem Jones MD Platelets (Bld) [#/Vol] 267 10*3/uL Normal 138-453 [facility] Comment on above: Performed By: #### P RENAT #### [place] [address] [place] [address] Single Fold Machine Operator: Diego Bashir MD [facility] [address] [place] [address] Dr. [place] [phone] Single Fold Machine Operator: Artem Jones MD RBC (Bld) [#/Vol] 3.94 10*6/uL Low 3.95-5.11 [facility] Comment on above: Performed By: #### P RENAT #### [address] [address] Single Fold Machine Operator: Diego Bashir MD [address] [place] [phone] Single Fold Machine Operator: Artem Jones MD WBC (Bld) [#/Vol] 10.7 10*3/uL Normal 3.5-11.3 [facility] Comment on above: Performed By: #### P RENAT #### [address] [address] Single Fold Machine Operator: Diego Bashir MD [facility] [address] [place] [address] Dr. [place] [phone] Single Fold Machine Operator: Artem Jones MD Hematocrit (Bld) [Volume fraction] 31.2 % Low 36.3 - 47.1 % [facility] Hemoglobin (Bld) [Mass/Vol] 9.8 g/dL Low 11.9 - 15.1 g/dL [facility] Interpretation and review of laboratory results Abnormal [facility] MCH (RBC) [Entitic mass] 24.9 pg Low 25.2 - 33.5 pg [facility] MCHC (RBC) [Mass/Vol] 31.4 g/dL 28.4 - 34.8 g/dL [facility] MCV (RBC) [Entitic vol] 79.2 fL Low 82.6 - 102.9 fL [facility] NRBC Automated 0.0 0.0 per 100 WBC [facility] Platelet distribution width (Bld) [Ratio] 14.4 % 11.8 - 14.4 % [facility] Platelet mean volume (Bld) [Entitic vol] 8.3 fL 8.1 - 13.5 fL [facility] Platelets (Bld) [#/Vol] 267 10*3/uL [facility] RBC (Bld) [#/Vol] 3.94 10*6/uL Low 3.95 - 5.11 m/uL [facility] WBC (Bld) [#/Vol] 10.7 10*3/uL [facility] Comp Metabolic Profon 2022 Albumin [Mass/Vol] 3.3 g/dL Low 3.5-5.2 [facility] Comment on above: Performed By: #### P RENAT #### [place] [address] [place] [id number] Single Fold Machine Operator: Diego Bashir MD [facility] [address] [place] [address] [place] [address] Single Fold Machine Operator: Artem Jones MD Albumin/Glob Ratio 1.0 Normal 1.0-2.5 [facility] Comment on above: Performed By: #### P RENAT #### [facility] [employer] [address] [place], [place] [phone] Single Fold Machine Operator: Diego Bashir MD [facility] [address] [address] Single Fold Machine Operator: Artem Jones MD Alkaline Phos 124 U/L High 35-104 [facility] Comment on above: Performed By: #### P RENAT #### [facility] [address] [place] [address] Single Fold Machine Operator: Diego Bashir MD [facility] [address] [place] [address] Dr. [place], [place] [phone] Single Fold Machine Operator: Artem Jones MD ALT [Catalytic activity/Vol] 7 U/L Normal 5-33 [facility] Comment on above: Performed By: #### P RENAT #### [place] [address] [place] [address] Single Fold Machine Operator: Diego Bashir MD [facility] [address] [place] [address] [place] [address] Single Fold Machine Operator: Artem Jones MD Anion gap [Moles/Vol] 11 mmol/L Normal 9-17 [facility] Comment on above: Performed By: #### P RENAT #### [address] [address] Single Fold Machine Operator: Diego Bashir MD [address] [place] [phone] Single Fold Machine Operator: Artem Jones MD AST [Catalytic activity/Vol] 12 U/L Normal <32 [facility] Comment on above: Performed By: #### P RENAT #### [address] [address] Single Fold Machine Operator: Diego Bashir MD [address] [place] [phone] Single Fold Machine Operator: Artem Jones MD Bilirubin [Mass/Vol] 0.2 mg/dL Low 0.3-1.2 [facility] Comment on above: Performed By: #### P RENAT #### [address] [address] Single Fold Machine Operator: Diego Bashir MD [facility] [address] [place] [address] [place] [address] Single Fold Machine Operator: Artem Jones MD BUN/CRE Ratio 8 Low 9-20 [facility] Comment on above: Performed By: #### P RENAT #### [facility] [address] [place] [address] Single Fold Machine Operator: Diego Bashir MD [facility] [address] [place] [address] Dr. [place], [place] [phone] Single Fold Machine Operator: Artem Jones MD Calcium [Mass/Vol] 9.4 mg/dL Normal 8.6-10.4 [facility] Comment on above: Performed By: #### P RENAT #### [address] [address] Single Fold Machine Operator: Diego Bashir MD [facility] [address] [place] [address] [place] [address] Single Fold Machine Operator: Artem Jones MD Chloride [Moles/Vol] 105 mmol/L Normal 98-107 [facility] Comment on above: Performed By: #### P RENAT #### [address] [address] Single Fold Machine Operator: Diego Bashir MD [facility] [address] [place] [address] [place] [address] Single Fold Machine Operator: Artem Jones MD CO2 [Moles/Vol] 22 mmol/L Normal 20-31 [facility] Comment on above: Performed By: #### P RENAT #### [address] [address] Single Fold Machine Operator: Diego Bashir MD [facility] [address] [place] [address] [place] [address] Single Fold Machine Operator: Artem Jones MD Creatinine [Mass/Vol] 0.50 mg/dL Normal 0.50-0.90 [facility] Comment on above: Performed By: #### P RENAT #### [address] [address] Single Fold Machine Operator: Diego Bashir MD [facility] [address] [place] [address] Single Fold Machine Operator: Artem Jones MD GFR/1.73 sq M.predicted among non-blacks MDRD (S/P/Bld) [Vol rate/Area] mL/min/{1.73_m2} Normal >60 [facility] Comment on above: Result Comment: These results are not intended for use in patients <18 years of age. eGFR results are calculated without a race factor using the 2020 CKD-EPI equation. Careful clinical correlation is recommended, particularly when comparing to results calculated using previous equations. The CKD-EPI equation is less accurate in patients with extremes of muscle mass, extra-renal metabolism of creatine, excessive creatine ingestion, or following therapy that affects renal tubular secretion. Performed By: #### P RENAT #### [address] [address] Single Fold Machine Operator: Diego Bashir MD [address] [place] [address] Single Fold Machine Operator: Artem Jones MD Glucose [Mass/Vol] 108 mg/dL High 70-99 [facility] Comment on above: Performed By: #### P RENAT #### [address] [address] Single Fold Machine Operator: Diego Bashir MD [address] [place] [id number] Single Fold Machine Operator: Artem Jones MD Potassium [Moles/Vol] 3.8 mmol/L Normal 3.7-5.3 [facility] Comment on above: Performed By: #### P RENAT #### [facility] [employer] [address] [place] [id number] Single Fold Machine Operator: Diego Bashir MD [address] [place] [address] Single Fold Machine Operator: Artem Jones MD Protein [Mass/Vol] 6.5 g/dL Normal 6.4-8.3 [facility] Comment on above: Performed By: #### P RENAT #### [facility] [address] [place] [address] Single Fold Machine Operator: Diego Bashir MD [facility] [address] [place] [address] Single Fold Machine Operator: Artem Jones MD Sodium [Moles/Vol] 138 mmol/L Normal 135-144 [facility] Comment on above: Performed By: #### P RENAT #### [facility] [address] [place] [address] Single Fold Machine Operator: Diego Bashir MD [facility] [address] [place] [address] Single Fold Machine Operator: Artem Jones MD Urea nitrogen [Mass/Vol] 4 mg/dL Low 6-20 [facility] Comment on above: Performed By: #### P RENAT #### [facility] [address] [place] [address] Single Fold Machine Operator: Diego Bashir MD [facility] [address] [place] [address] Single Fold Machine Operator: Artem Jones MD [facility] 09-14-2022 Albumin [Mass/Vol] 3.3 g/dL Low 3.5 - 5.2 g/dL [facility] Albumin/Globulin [Mass ratio] 1.0 {ratio} 1.0 - 2.5 [facility] ALP [Catalytic activity/Vol] 124 U/L High 35 - 104 U/L [facility] ALT [Catalytic activity/Vol] 7 U/L 5 - 33 U/L [facility] Anion gap [Moles/Vol] 11 mmol/L 9 - 17 mmol/L [facility] AST [Catalytic activity/Vol] 12 U/L NINF - 32 U/L [facility] Bilirubin [Mass/Vol] 0.2 mg/dL Low 0.3 - 1.2 mg/dL [facility] Calcium [Mass/Vol] 9.4 mg/dL 8.6 - 10.4 mg/dL [facility] Chloride [Moles/Vol] 105 mmol/L 98 - 107 mmol/L [facility] CO2 [Moles/Vol] 22 mmol/L 20 - 31 mmol/L [facility] Creatinine [Mass/Vol] 0.5 mg/dL 0.50 - 0.90 mg/dL [facility] GFR/1.73 sq M.predicted MDRD (S/P/Bld) [Vol rate/Area] - [facility] Comment on above: These results are not intended for use in patients <18 years of age. eGFR results are calculated without a race factor using the 2020 CKD-EPI equation. Careful clinical correlation is recommended, particularly when comparing to results calculated using previous equations. The CKD-EPI equation is less accurate in patients with extremes of muscle mass, extra-renal metabolism of creatine, excessive creatine ingestion, or following therapy that affects renal tubular secretion. Glucose [Mass/Vol] 108 mg/dL High 70 - 99 mg/dL [facility] Interpretation and review of laboratory results Abnormal [facility] Potassium [Moles/Vol] 3.8 mmol/L 3.7 - 5.3 mmol/L [facility] Protein [Mass/Vol] 6.5 g/dL 6.4 - 8.3 g/dL [facility] Sodium [Moles/Vol] 138 mmol/L 135 - 144 mmol/L [facility] Urea nitrogen [Mass/Vol] 4 mg/dL Low 6 - 20 mg/dL [facility] Urea nitrogen/Creatinine (Bld) [Mass ratio] 8 Low 9 - 20 [facility] Protein / Creatinine Ratio, Urineon 09-14-2022 Creatinine, Ur 110.6 mg/dL 28.0 - 217.0 mg/dL [facility] Protein (U) [Mass/Vol] 13 mg/dL [facility] Comment on above: No normal range esta blished. Urine Total Protein Creatinine Ratio 0.12 0.00 - 0.20 [facility] Protein,Tot,Clark Uron 2022 Creatinine [Mass/Vol] 110.6 mg/dL Normal 28.0-217.0 [facility] Comment on above: Performed By: #### U RTPRT #### [facility] [address] [place], [place] [id number] Single Fold Machine Operator: Diego Bashir MD Tot Prot. Conc. 13 mg/dL Normal [facility] Comment on above: Result Comment: No n ormal range established. Performed By: #### U RTPRT #### [facility] [place], [place] [id number] Single Fold Machine Operator: Diego Bashir MD TP/Cre Ratio 0.12 Normal 0.00-0.20 [facility] Comment on above: Performed By: #### U RTPRT #### [facility] [place] [id number] Single Fold Machine Operator: Diego Bashir MD US OB FOLLOW UP TRANSABDOMIN AL APPROACHon 09-12-2022 US OB FOLLOW UP TRANSABDOMINAL APPROACH Growth Ultrasound ? Viable 35 week, 5 day SIUP EFW= 65% AC>HC Vertex Anterior placenta ELEONORA= 12.8 cm Interpreted by: Arin Blake DO Signed by: Arin Blake DO 09/12/22 Final result Normal [facility] US OB FOLLOW UP TRANSABDOMIN AL APPROACHon 08-29-2022 US OB FOLLOW UP TRANSABDOMINAL APPROACH Growth Ultrasound ? Viable 31 week, 4 day SIUP EFW= 53% Vertex Anterior placenta ELEONORA= 11.5 cm Cx length= 4.1 cm ? Interpreted by: Arin Blake DO Signed by: Arin Blake DO 08/29/22 Final result Normal [facility] CBC with Auto Differentialon 08-25-2022 Absolute Eos # 0.11 [facility] Absolute Immature Granulocyte 0.10 [facility] [email or web address] Absolute Lymph # 2.10 [facility] [email or web address] Absolute Mcminn # 0.52 [facility] [email or web address] Basophils (Bld) [#/Vol] 0.04 10*3/uL [facility] Basophils/100 WBC (Bld) 0 % 0 - 2 % [facility] Eosinophils/100 WBC (Bld) 1 % 1 - 4 % [facility] Hematocrit (Bld) [Volume fraction] 33.1 % Low 36.3 - 47.1 % [facility] Hemoglobin (Bld) [Mass/Vol] 10.5 g/dL Low 11.9 - 15.1 g/dL [facility] Immature granulocytes/100 WBC (Bld) 1 % High 0 [facility] Interpretation and review of laboratory results Abnormal [facility] Lymphocytes/100 WBC (Bld) 23 % Low 24 - 43 % [facility] MCH (RBC) [Entitic mass] 25.9 pg 25.2 - 33.5 pg [facility] MCHC (RBC) [Mass/Vol] 31.7 g/dL 28.4 - 34.8 g/dL [facility] MCV (RBC) [Entitic vol] 81.7 fL Low 82.6 - 102.9 fL [facility] Monocytes/100 WBC (Bld) 6 % 3 - 12 % [facility] NRBC Automated 0.0 0.0 per 100 WBC [facility] Platelet distribution width (Bld) [Ratio] 14.4 % 11.8 - 14.4 % [facility] Platelet mean volume (Bld) [Entitic vol] 9.1 fL 8.1 - 13.5 fL [facility] Platelets (Bld) [#/Vol] 301 10*3/uL [facility] RBC (Bld) [#/Vol] 4.05 10*6/uL 3.95 - 5.11 m/uL [facility] RBC (Bld) [#/Vol] MICROCYTOSIS PRESENT [facility] Segmented neutrophils/100 WBC (Bld) 69 % High 36 - 65 % [facility] Segs Absolute 6.28 [facility] WBC (Bld) [#/Vol] 9.2 10*3/uL [facility] CBC with Diffon 08-25-2022 Abs. Basophil 0.04 k/uL Normal 0.00-0.20 [facility] Comment on above: Performed By: #### C DP, GLUSC #### [address] [address] Single Fold Machine Operator: Diego Bashir MD Abs.Imm.Granulocyte 0.10 k/uL Normal 0.00-0.30 [facility] Comment on above: Performed By: #### C DP, GLUSC #### [place] [address] Single Fold Machine Operator: Diego Bashir MD Abs.Neutrophil (Seg) 6.28 k/uL Normal 1.50-8.10 [facility] Comment on above: Performed By: #### C DP, GLUSC #### [place] [address] Single Fold Machine Operator: Diego Bashir MD Basophils/100 WBC (Bld) 0 % Normal 0-2 [facility] Comment on above: Performed By: #### C DP, GLUSC #### [place] [address] Single Fold Machine Operator: Diego Bashir MD Eosinophils (Bld) [#/Vol] 0.11 10*3/uL Normal 0.00-0.44 [facility] Comment on above: Performed By: #### C DP, GLUSC #### [place] [address] Single Fold Machine Operator: Diego Bashir MD Eosinophils/100 WBC (Bld) 1 % Normal 1-4 [facility] Comment on above: Performed By: #### C DP, GLUSC #### [place] [address] Single Fold Machine Operator: Diego Bashir MD Erythrocyte distribution width (RBC) [Ratio] 14.4 % Normal 11.8-14.4 [facility] Comment on above: Performed By: #### C DP, GLUSC #### [address] [address] Single Fold Machine Operator: Diego Bashir MD Hematocrit (Bld) [Volume fraction] 33.1 % Low 36.3-47.1 [facility] Comment on above: Performed By: #### C DP, GLUSC #### [address] [address] Single Fold Machine Operator: Diego Bashir MD Hemoglobin (Bld) [Mass/Vol] 10.5 g/dL Low 11.9-15.1 [facility] Comment on above: Performed By: #### C DP, GLUSC #### [address] [address] Single Fold Machine Operator: Diego Bashir MD Immature granulocytes/100 WBC (Bld) 1 % High 0 [facility] Comment on above: Performed By: #### C DP, GLUSC #### [address] [address] Single Fold Machine Operator: Diego Bashir MD Lymphocytes (Bld) [#/Vol] 2.10 10*3/uL Normal 1.10-3.70 [facility] Comment on above: Performed By: #### C DP, GLUSC #### [address] [address] Single Fold Machine Operator: Diego Bashir MD Lymphocytes/100 WBC (Bld) 23 % Low 24-43 [facility] Comment on above: Performed By: #### C DP, GLUSC #### [address] [address] Single Fold Machine Operator: Diego Bashir MD MCH (RBC) [Entitic mass] 25.9 pg Normal 25.2-33.5 [facility] Comment on above: Performed By: #### C DP, GLUSC #### [address] [address] Single Fold Machine Operator: Diego Bashir MD MCHC (RBC) [Mass/Vol] 31.7 g/dL Normal 28.4-34.8 [facility] Comment on above: Performed By: #### C DP, GLUSC #### [address] [address] Single Fold Machine Operator: Diego Bashir MD MCV (RBC) [Entitic vol] 81.7 fL Low 82.6-102.9 [facility] Comment on above: Performed By: #### C DP, GLUSC #### [address] [address] Single Fold Machine Operator: Diego Bashir MD Monocytes (Bld) [#/Vol] 0.52 10*3/uL Normal 0.10-1.20 [facility] Comment on above: Performed By: #### C DP, GLUSC #### [address] [address] Single Fold Machine Operator: Diego Bashir MD Monocytes/100 WBC (Bld) 6 % Normal 3-12 [facility] Comment on above: Performed By: #### C DP, GLUSC #### [address] [address] Single Fold Machine Operator: Diego Bashir MD Neutrophil (Seg) 69 % High 36-65 [facility] Comment on above: Performed By: #### C DP, GLUSC #### [address] [address] Single Fold Machine Operator: Diego Bashir MD NRBC Automated 0.0 per 100 WBC Normal 0.0 [facility] Comment on above: Performed By: #### C DP, GLUSC #### [address] [address] Single Fold Machine Operator: Diego Bashir MD Platelet mean volume (Bld) [Entitic vol] 9.1 fL Normal 8.1-13.5 [facility] Comment on above: Performed By: #### C DP, GLUSC #### [address] [address] Single Fold Machine Operator: Diego Bashir MD Platelets (Bld) [#/Vol] 301 10*3/uL Normal 138-453 [facility] Comment on above: Performed By: #### C DP, GLUSC #### [address] [address] Single Fold Machine Operator: Diego Bashir MD RBC (Bld) [#/Vol] 4.05 10*6/uL Normal 3.95-5.11 [facility] Comment on above: Performed By: #### C DP, GLUSC #### [address] [address] Single Fold Machine Operator: Diego Bashir MD RBC morphology finding Nom (Bld) MICROCYTOSIS PRESENT Normal [facility] Comment on above: Performed By: #### C DP, GLUSC #### [address] [address] Single Fold Machine Operator: Diego Bashir MD WBC (Bld) [#/Vol] 9.2 10*3/uL Normal 3.5-11.3 [facility] Comment on above: Performed By: #### C DP, GLUSC #### [address] [address] Single Fold Machine Operator: Diego Bashir MD Glucose [place] [address] 2022 Glucose [Mass/Vol] 142 mg/dL High 70-135 [facility] Comment on above: Performed By: #### C DP, GLUSC #### [address] [address] Single Fold Machine Operator: Diego Bashir MD Glu Administered via Glucola Normal [facility] Comment on above: Performed By: #### C DP, GLUSC #### [facility] [employer] [address] [place] [address] Single Fold Machine Operator: Diego Bashir MD Glucose tolerance, 1 houron 08-25-2022 GLU ADMN Glucola [facility] Glucose tolerance screen 50g 142 mg/dL High 70 - 135 mg/dL [facility] Interpretation and review of laboratory results Abnormal [facility] Echo 2D w doppler w color co mpleteon 08-16-2022 [facility] Transthoracic Echocardiography Report (TTE) Patient Name KARMEN Date of Study 08/16/2022 FABIEN Ovalle Date of 2000 Gender Female Age 21 year(s) Race Room Number Height: 62 inch, 157.48 cm Corporate ID [id number] Weight: 197 pounds, 89.4 kg # Patient Acct [id number] BSA: 1.9 m^2 BMI: 36.03 # kg/m^2 MR # [id number] [employer]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 Procedure Date Date: 08/16/2022 Start: 08:31 AM Study Location: [facility] Indications:Lighthead edness. History / Tech. Comments: Dx: lightheadedness, (32 weeks) Hx: POTS Patient Status: Outpatient Height: 62 inches Weight: 197 pounds BSA: 1.9 m^2 BMI: 36.03 kg/m^2 BP: 112/80 mmHg CONCLUSIONS Summary Global left ventricular systolic function appears preserved with an estimated ejection fraction of 65%. The left ventricular cavity size is within normal limits and the left ventricular wall thickness is within normal limits. No definite specific wall motion abnormalities were identified. No significant valvular abnormalities. No clear evidence of diastolic dysfunction was identified. No prior studies were available for comparison. Signature FINDINGS Left Atrium Left atrium is normal in size. Left Ventricle Global left ventricular systolic function appears preserved with an estimated ejection fraction of 65%. The left ventricular cavity size is within normal limits and the left ventricular wall thickness is within normal limits. No definite specific wall motion abnormalities were identified. Right Atrium Right atrium is normal in size. Right Ventricle Normal right ventricular size and function. Mitral Valve Normal mitral valve structure and function. Aortic Valve Normal aortic valve structure and function without stenosis or regurgitation. Tricuspid Valve Normal tricuspid valve structure and function. Pulmonic Valve The pulmonic valve is normal in structure. Pericardial Effusion No significant pericardial effusion is seen. Miscellaneous No clear evidence of diastolic dysfunction was identified. Normal aortic root dimension. M-mode / 2D Measurements & Calculations: LVIDd:4.97 cm(3.7 - 5.6 cm) Diastolic Volume:95.63509 ml LVIDs:3.11 cm(2.2 - 4.0 cm) Systolic Volume:33.28 ml IVSd:0.93 cm(0.6 - 1.1 cm) Aortic Root:2.83 cm(2.0 - 3.7 cm) LVPWd:0.88 cm(0.6 - 1.1 cm) LA Dimension: 3.6 cm(1.9 - 4.0 cm) Fractional Shortenin.42 % LA volume/Index: 37.7 ml /20m^2 Calculated LVEF (%): 65.02 % AV Cusp Separation: 2.3 cm Mitral: Aortic Valve Area (P1/2-Time): 3.34 cm^2 Peak Velocity: 1.46 m/s Peak E-Wave: 0.67 m/s Mean Velocity: 1.01 m/s Peak A-Wave: 0.51 m/s Peak Gradient: 8.49 mmHg E/A Ratio: 1.33 Mean Gradient: 4.57 mmHg Peak Gradient: 1.81 mmHg Acceleration Time: 88.4 msec P1/2t: 65.89 msec AV VTI: 26.26 cm Diastology / Tissue Doppler Lateral Wall E' velocity:0.13 m/s Lateral Wall E/E':5.26 MHPN MHT [facility] Jose A Chandler MD - 08/16/2022 [facility] Transthoracic Echocardiography Report (TTE) Patient Name KARMEN Date of Study 08/16/2022 FABIEN Ovalle Date of 2000 Gender Female Age 21 year(s) Race Room Number Height: 62 inch, 157.48 cm Corporate ID [id number] Weight: 197 pounds, 89.4 kg # Patient Acct [id number] BSA: 1.9 m^2 BMI: 36.03 # kg/m^2 MR # [id number] P[employer]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 Procedure Date Date: 08/16/2022 Start: 08:31 AM Study Location: [facility] Indications:Lighthead edness. History / Tech. Comments: Dx: lightheadedness, (32 weeks) Hx: POTS Patient Status: Outpatient Height: 62 inches Weight: 197 pounds BSA: 1.9 m^2 BMI: 36.03 kg/m^2 BP: 112/80 mmHg CONCLUSIONS Summary Global left ventricular systolic function appears preserved with an estimated ejection fraction of 65%. The left ventricular cavity size is within normal limits and the left ventricular wall thickness is within normal limits. No definite specific wall motion abnormalities were identified. No significant valvular abnormalities. No clear evidence of diastolic dysfunction was identified. No prior studies were available for comparison. Signature - - - - FINDINGS Left Atrium Left atrium is normal in size. Left Ventricle Global left ventricular systolic function appears preserved with an estimated ejection fraction of 65%. The left ventricular cavity size is within normal limits and the left ventricular wall thickness is within normal limits. No definite specific wall motion abnormalities were identified. Right Atrium Right atrium is normal in size. Right Ventricle Normal right ventricular size and function. Mitral Valve Normal mitral valve structure and function. Aortic Valve Normal aortic valve structure and function without stenosis or regurgitation. Tricuspid Valve Normal tricuspid valve structure and function. Pulmonic Valve The pulmonic valve is normal in structure. Pericardial Effusion No significant pericardial effusion is seen. Miscellaneous No clear evidence of diastolic dysfunction was identified. Normal aortic root dimension. M-mode / 2D Measurements & Calculations: LVIDd:4.97 cm(3.7 - 5.6 cm) Diastolic Volume:95.69791 ml LVIDs:3.11 cm(2.2 - 4.0 cm) Systolic Volume:33.28 ml IVSd:0.93 cm(0.6 - 1.1 cm) Aortic Root:2.83 cm(2.0 - 3.7 cm) LVPWd:0.88 cm(0.6 - 1.1 cm) LA Dimension: 3.6 cm(1.9 - 4.0 cm) Fractional Shortenin.42 % LA volume/Index: 37.7 ml /20m^2 Calculated LVEF (%): 65.02 % AV Cusp Separation: 2.3 cm Mitral: Aortic Valve Area (P1/2-Time): 3.34 cm^2 Peak Velocity: 1.46 m/s Peak E-Wave: 0.67 m/s Mean Velocity: 1.01 m/s Peak A-Wave: 0.51 m/s Peak Gradient: 8.49 mmHg E/A Ratio: 1.33 Mean Gradient: 4.57 mmHg Peak Gradient: 1.81 mmHg Acceleration Time: 88.4 msec P1/2t: 65.89 msec AV VTI: 26.26 cm Diastology / Tissue Doppler Lateral Wall E' velocity:0.13 m/s Lateral Wall E/E':5.26 [employer] Phone: Echo 2D w doppler w color co mpleteOrdered By: Jose A Chandler on 08-16-2022 [employer] Phone: Urinalysison 08-02-2022 Bilirubin Urine Negative NEGATIVE [facility] Color, UA Yellow Yellow [facility] Glucose, Ur Negative NEGATIVE [facility] Interpretation and review of laboratory results Abnormal [facility] Ketones Ql (U) Negative NEGATIVE [facility] Leukocyte esterase Test strip Ql (U) Negative NEGATIVE [facility] Nitrite, Urine Negative NEGATIVE [facility] pH, UA 7.0 5.0 - 9.0 [facility] Protein, UA Negative NEGATIVE [facility] Specific [place], UA Low 1.010 - 1.[address] [facility] Turbidity UA Clear Clear [facility] Urine Hgb Negative NEGATIVE [facility] Urobilinogen, Urine Normal Normal [facility] Urinalysis, Routineon 2022 Bilirubin, SemiQt,Ur Negative Normal NEG [facility] Comment on above: Performed By: #### U A #### [facility] [address] [place] [id number] Single Fold Machine Operator: Artem Jones MD Blood, Urine Negative Normal [facility] Comment on above: Performed By: #### U A #### [facility] [address] [place] [id number] Single Fold Machine Operator: Artem Jones MD Clarity (U) Clear Normal CLEAR [facility] Comment on above: Performed By: #### U A #### [facility] [address] [place] [address] Dr. [place] [id number] Single Fold Machine Operator: Artem Jones MD Color (U) Yellow Normal YEL [facility] Comment on above: Performed By: #### U A #### [facility] [address] [place] [address] Single Fold Machine Operator: Artem Jones MD Glucose Ql (U) Negative Normal NEG [facility] Comment on above: Performed By: #### U A #### [facility] [address] [place] [address] Single Fold Machine Operator: Artem Jones MD Ketones Ql (U) Negative Normal NEG [facility] Comment on above: Performed By: #### U A #### [facility] [address] [place] [address] Dr. [place], [place] [id number] Single Fold Machine Operator: Artem Jones MD Leukocyte esterase Test strip Ql (U) Negative Normal NEG [facility] Comment on above: Performed By: #### U A #### [facility] [address] [place] [address] Dr. [place], [place] [id number] Single Fold Machine Operator: Artem Jones MD Nitrite,Ur Negative Normal NEG [facility] Comment on above: Performed By: #### U A #### [address] [place], [place] [id number] Single Fold Machine Operator: Artem Jones MD PH,Ur 7.0 Normal 5.0-9.0 [facility] Comment on above: Performed By: #### U A #### [facility] [address] [place] [address] Dr. [place], [place] [phone] Single Fold Machine Operator: Artem Jones MD Protein Ql (U) Negative Normal NEG [facility] Comment on above: Performed By: #### U A #### [address] [place], [place] [phone] Single Fold Machine Operator: Artem Jones MD Spec. Hyden,Ur <1.005 Low 1.010-1.020 [facility] Comment on above: Performed By: #### U A #### [facility] [address] [place] [address] Dr. [place], [place] [phone] Single Fold Machine Operator: Artem Jones MD Urobilinogen,Ur Normal Normal NORM [facility] Comment on above: Performed By: #### U A #### [address] [place] [address] Single Fold Machine Operator: Artem Jones MD Cult,Urineon 02-23-2022 Cult,Urine Specimen Description .CLEAN CATCH URINE Culture KLEBSIELLA PNEUMONIAE >[id number] CFU/ML Report Status FINAL 02/23/2022 SUSCEPTIBILITY Organism KLEBSIELLA PNEUMONIAE Method JENN Ampicillin 16 RESISTANT Aztreonam <=1 SUSCEPTIBLE Cefazolin <=4 SUSCEPTIBLE Cefazolin sensitivity results can be used to predict the effectiveness of oral cephalosporins (eg. Cephalexin) in uncomplicated Urinary Tract Infections due to E. coli, K. pneumoniae, and P. mirabilis Ceftriaxone <=1 SUSCEPTIBLE Ciprofloxacin <=0.25 SUSCEPTIBLE ESBL NEGATIVE Gentamicin <=1 SUSCEPTIBLE Nitrofurantoin <=16 SUSCEPTIBLE Tobramycin <=1 SUSCEPTIBLE Trimethoprim/Sulfa <=20 SUSCEPTIBLE Piperacillin/Tazobact am <=4 SUSCEPTIBLE Susceptible [facility] Comment on above: Performed By: #### U #### [facility] [address] [place], [place] [id number] Single Fold Machine Operator: Diego Bashir MD [facility] [address] [place] [address] Single Fold Machine Operator: Artem Jones MD Chlamydia/GC DNA, Uron 02-22 Chlamydia Probe, Ur Negative Normal NEG [facility] Comment on above: Result Comment: CHLA MYDIA TRACHOMATIS DNA not detected by nucleic acid amplification. This test is intended for medical purposes only and is not valid for the evaluation of suspected sexual abuse or for other forensic purposes. In certain contexts, culture may be required to meet applicable laws and regulations for diagnosis of C. trachomatis and N. gonorrhoeae infections. Per 2014 CDC recommendations, this test does not include confirmation of positive results by an alternative nucleic acid target. Performed By: #### U CG #### [facility] [address] [place], [place] [id number] Single Fold Machine Operator: Diego Bashir MD Gonorrhea Probe, Ur Negative Normal NEG [facility] Comment on above: Result Comment: NEIS SERIA GONORRHOEAE DNA not detected by nucleic acid amplification. This test is intended for medical purposes only and is not valid for the evaluation of suspected sexual abuse or for other forensic purposes. In certain contexts, culture may be required to meet applicable laws and regulations for diagnosis of C. trachomatis and N. gonorrhoeae infections. Per 2014 CDC recommendations, this test does not include confirmation of positive results by an alternative nucleic acid target. Performed By: #### U CGP #### [address] [address] Single Fold Machine Operator: Diego Bashir MD HIV Ag/Abon 02-22-2022 HIV Ag/Ab Non-Reactive Normal [facility] Comment on above: Result Comment: No l aboratory evidence of HIV infection. If acute HIV infection is suspected, consider testing for HIV-1 RNA. Performed By: #### H IVCMB, AHCV #### [address] [address] Single Fold Machine Operator: Diego Bashir MD Hep C Abon 02-22-2022 Hep C Ab Non-Reactive Normal [facility] Comment on above: Result Comment: The hepatitis C procedure used in our laboratory is a Chemiluminescent test specific for three recombinant HCV antigens. A negative anti-HCV result indicates that the antibodies to hepatitis C virus are not present at this time. Individuals with reactive anti-HCV should be considered infected and infectious until proven otherwise. Confirmation of all equivocal or reactive results is recommended by ordering HCV RNA by PCR. Performed By: #### H IVCMB, AHCV #### [address] [address] Single Fold Machine Operator: Diego Bashir MD Profileon T.pallidum Ab Screen Non-Reactive Normal [facility] Comment on above: Result Comment: T. pallidum antibodies are not detected. There is no serological evidence of infection with T. pallidum (early primary syphilis cannot be excluded). Retest in 2-4 weeks if syphilis is clinically suspect. Performed By: #### P RENAT #### [address] [address] Single Fold Machine Operator: Diego Bashir MD [facility] [address] [place] [address] [place] [address] Single Fold Machine Operator: Artem Jones MD Hep B Surf Ag Non-Reactive Normal [facility] Comment on above: Performed By: #### P RENAT #### [address] [id number] Single Fold Machine Operator: Diego Bashir MD [facility] [address] [place] [address] Single Fold Machine Operator: Artem Jones MD Rubella Ab, IgG 67.8 IU/mL Normal [facility] Comment on above: Result Comment: REFERENCE RANGE: <5.0 NON-REACTIVE (non-immune) 5.0 TO 9.9 EQUIVOCAL >=10.0 REACTIVE (immune) Performed By: #### P RENAT #### [facility] [address] [place], [place] [id number] Single Fold Machine Operator: Diego Bashir MD [facility] [address] [place] [address] Single Fold Machine Operator: Artem Jones MD Profile Ion 022 Absolute Eos # 0.10 [place] [facility] Absolute Immature Granulocyte 0.05 [facility] Absolute Lymph # 2.73 [facility] Absolute Mcminn # 0.69 [facility] Basophils (Bld) [#/Vol] 0.07 10*3/uL [facility] Basophils/100 WBC (Bld) 1 % 0 - 2 % [facility] Eosinophils/100 WBC (Bld) 1 % 1 - 4 % [facility] Hematocrit (Bld) [Volume fraction] 37.3 % 36.3 - 47.1 % [facility] Hemoglobin (Bld) [Mass/Vol] 12.2 g/dL 11.9 - 15.1 g/dL [facility] Hepatitis B Surface Ag Non-Reactive NONREACTIVE [facility] Immature granulocytes/100 WBC (Bld) 1 % High 0 [facility] Interpretation and review of laboratory results Abnormal [facility] Lymphocytes/100 WBC (Bld) 28 % 24 - 43 % [facility] MCH (RBC) [Entitic mass] 28.0 pg 25.2 - 33.5 pg [facility] MCHC (RBC) [Mass/Vol] 32.7 g/dL 28.4 - 34.8 g/dL [facility] MCV (RBC) [Entitic vol] 85.7 fL 82.6 - 102.9 fL [facility] Monocytes/100 WBC (Bld) 7 % 3 - 12 % [facility] NRBC Automated 0.0 0.0 per 100 WBC [facility] Platelet distribution width (Bld) [Ratio] 12.7 % 11.8 - 14.4 % [facility] Platelet mean volume (Bld) [Entitic vol] 9.3 fL 8.1 - 13.5 fL [facility] Platelets (Bld) [#/Vol] 300 10*3/uL [facility] RBC (Bld) [#/Vol] 4.35 10*6/uL 3.95 - 5.11 m/uL [facility] Rubella virus IgG Ql (S) 67.8 IU/mL [facility] Comment on above: REFERENCE RANGE: <5.0 NON-REACTIVE (non-immune) 5.0 TO 9.9 EQUIVOCAL >=10.0 REACTIVE (immune) Segmented neutrophils/100 WBC (Bld) 62 % 36 - 65 % [facility] Segs Absolute 6.09 [facility] T. pallidum, IgG Non-Reactive NONREACTIVE [facility] Comment on above: T. pallidum antibodies are not detected. There is no serological evidence of infection with T. pallidum (early primary syphilis cannot be excluded). Retest in 2-4 weeks if syphilis is clinically suspect. WBC (Bld) [#/Vol] 9.7 10*3/uL [facility] HIV Screenon 02-21-2022 HIV Ag/Ab Non-Reactive NONREACTIVE [facility] Comment on above: No laboratory eviden ce of HIV infection. If acute HIV infection is suspected, consider testing for HIV-1 RNA. [facility] Hepatitis C Antibodyon 02-21 Hepatitis C Ab Non-Reactive NONREACTIVE [facility] Comment on above: The hepatitis C procedure used in our laboratory is a Chemiluminescent test specific for three recombinant HCV antigens. A negative anti-HCV result indicates that the antibodies to hepatitis C virus are not present at this time. Individuals with reactive anti-HCV should be considered infected and infectious until proven otherwise. Confirmation of all equivocal or reactive results is recommended by ordering HCV RNA by PCR. [facility] TYPE AND SCREENon 0 02-21-2022 ABO/Rh Positive [facility] Profileon 2 Abs. Basophil 0.07 k/uL Normal 0.00-0.20 [facility] Comment on above: Performed By: #### P RENAT #### [place] [address] [place] [address] Single Fold Machine Operator: Diego Bashir MD [address] [place] [phone] Single Fold Machine Operator: Artem Jones MD Abs.Imm.Granulocyte 0.05 k/uL Normal 0.00-0.30 [facility] Comment on above: Performed By: #### P RENAT #### [address] [address] Single Fold Machine Operator: Diego Bashir MD [address] [place] [address] Single Fold Machine Operator: Artem Jones MD Abs.Neutrophil (Seg) 6.09 k/uL Normal 1.50-8.10 [facility] Comment on above: Performed By: #### P RENAT #### [address] [address] Single Fold Machine Operator: Diego Bashir MD [address] [place] [address] Single Fold Machine Operator: Artem Jones MD Basophils/100 WBC (Bld) 1 % Normal 0-2 [facility] Comment on above: Performed By: #### P RENAT #### [address] [address] Single Fold Machine Operator: Diego Bashir MD [address] [place] [address] Single Fold Machine Operator: Artem Jones MD Eosinophils (Bld) [#/Vol] 0.10 10*3/uL Normal 0.00-0.44 [facility] Comment on above: Performed By: #### P RENAT #### [address] [place] [address] Single Fold Machine Operator: Diego Bashir MD [facility] [address] [place] [address] [address]. [place] [phone] Single Fold Machine Operator: Artem Jones MD Eosinophils/100 WBC (Bld) 1 % Normal 1-4 [facility] Comment on above: Performed By: #### P RENAT #### [address] [address] Single Fold Machine Operator: Diego Bashir MD [address] [place] [phone] Single Fold Machine Operator: Artem Jones MD Erythrocyte distribution width (RBC) [Ratio] 12.7 % Normal 11.8-14.4 [facility] Comment on above: Performed By: #### P RENAT #### [address] [address] Single Fold Machine Operator: Diego Bashir MD [address] [place] [address] Single Fold Machine Operator: Artem Jones MD Hematocrit (Bld) [Volume fraction] 37.3 % Normal 36.3-47.1 [facility] Comment on above: Performed By: #### P RENAT #### [address] [address] Single Fold Machine Operator: Diego Bashir MD [address] [place] [address] Single Fold Machine Operator: Artem Jones MD Hemoglobin (Bld) [Mass/Vol] 12.2 g/dL Normal 11.9-15.1 [facility] Comment on above: Performed By: #### P RENAT #### [address] [address] Single Fold Machine Operator: Diego Bashir MD [facility] [address] [place] [address] [place] [address] Single Fold Machine Operator: Artem Jones MD Immature granulocytes/100 WBC (Bld) 1 % High 0 [facility] Comment on above: Performed By: #### P RENAT #### [address] [place] [address] Single Fold Machine Operator: Diego Bashir MD [facility] [address] [place] [address] Dr. [place] [phone] Single Fold Machine Operator: Artem Jones MD Lymphocytes (Bld) [#/Vol] 2.73 10*3/uL Normal 1.10-3.70 [facility] Comment on above: Performed By: #### P RENAT #### [address] [address] Single Fold Machine Operator: Diego Bashir MD [address] [place] [phone] Single Fold Machine Operator: Artem Jones MD Lymphocytes/100 WBC (Bld) 28 % Normal 24-43 [facility] Comment on above: Performed By: #### P RENAT #### [address] [address] Single Fold Machine Operator: Diego Bashir MD [address] [place] [phone] Single Fold Machine Operator: Artem Jones MD MCH (RBC) [Entitic mass] 28.0 pg Normal 25.2-33.5 [facility] Comment on above: Performed By: #### P RENAT #### [address] [address] Single Fold Machine Operator: Diego Bashir MD [facility] [address] [place] [address] [place] [address] Single Fold Machine Operator: Artem Jones MD MCHC (RBC) [Mass/Vol] 32.7 g/dL Normal 28.4-34.8 [facility] Comment on above: Performed By: #### P RENAT #### [address] [place] [address] Single Fold Machine Operator: Diego Bashir MD [facility] [address] [place] [address] Dr. [place], [place] [id number] Single Fold Machine Operator: Artem Jones MD MCV (RBC) [Entitic vol] 85.7 fL Normal 82.6-102.9 [facility] Comment on above: Performed By: #### P RENAT #### [address] [address] Single Fold Machine Operator: Diego Bashir MD [address] [place] [phone] Single Fold Machine Operator: Artem Jones MD Monocytes (Bld) [#/Vol] 0.69 10*3/uL Normal 0.10-1.20 [facility] Comment on above: Performed By: #### P RENAT #### [address] [address] Single Fold Machine Operator: Diego Bashir MD [address] [place] [phone] Single Fold Machine Operator: Artem Jones MD Monocytes/100 WBC (Bld) 7 % Normal 3-12 [facility] Comment on above: Performed By: #### P RENAT #### [address] [address] Single Fold Machine Operator: Diego Bashir MD [facility] [address] [place] [address] Dr. [place] [phone] Single Fold Machine Operator: Artem Jones MD Neutrophil (Seg) 62 % Normal 36-65 [facility] Comment on above: Performed By: #### P RENAT #### [address] [address] Single Fold Machine Operator: Diego Bashir MD [facility] [address] [place] [address] Dr. [place], [place] [phone] Single Fold Machine Operator: Artem Jones MD NRBC Automated 0.0 per 100 WBC Normal 0.0 [facility] Comment on above: Performed By: #### P RENAT #### [address] [address] Single Fold Machine Operator: Diego Bashir MD [facility] [address] [place] [address] Dr. [place] [phone] Single Fold Machine Operator: Artem Jones MD Platelet mean volume (Bld) [Entitic vol] 9.3 fL Normal 8.1-13.5 [facility] Comment on above: Performed By: #### P RENAT #### [address] [address] Single Fold Machine Operator: Diego Bashir MD [address] [place] [phone] Single Fold Machine Operator: Artem Jones MD Platelets (Bld) [#/Vol] 300 10*3/uL Normal 138-453 [facility] Comment on above: Performed By: #### P RENAT #### [address] [address] Single Fold Machine Operator: Diego Bashir MD [address] [place] [address] Single Fold Machine Operator: Artem Jones MD RBC (Bld) [#/Vol] 4.35 10*6/uL Normal 3.95-5.11 [facility] Comment on above: Performed By: #### P RENAT #### [address] [address] Single Fold Machine Operator: Diego Bashir MD [facility] [address] [place] [address] Dr. [place], [place] [phone] Single Fold Machine Operator: Artem Jones MD WBC (Bld) [#/Vol] 9.7 10*3/uL Normal 3.5-11.3 [facility] Comment on above: Performed By: #### P RENAT #### [address] [address] Single Fold Machine Operator: Diego Bashir MD [facility] [address] [place] [address] Single Fold Machine Operator: Artem Jones MD Type + Scrnon 02-21 Type + Scrn Negative Normal [facility] Comment on above: Performed By: #### P RTYS #### [facility] [address] [place] [address] Single Fold Machine Operator: Artem Jones MD Toxicology Scree, Urineon Amphetamine(s),Ur Negative Normal NEG [facility] Comment on above: Performed By: #### U CGP #### [address] [address] Single Fold Machine Operator: Diego Bashir MD Barbiturate(s),Ur Negative Normal NEG [facility] Comment on above: Performed By: #### U CGP #### [address] [address] Single Fold Machine Operator: Diego Bashir MD Benzodiazepine(s) Negative Normal NEG [facility] Comment on above: Performed By: #### U CGP #### [address] [address] Single Fold Machine Operator: Diego Bashir MD Buprenorphrine, Ur Negative Normal NEG [facility] Comment on above: Performed By: #### U CGP #### [address] [address] Single Fold Machine Operator: Diego Bashir MD Cannabinoid(s),Ur Negative Normal NEG [facility] Comment on above: Performed By: #### U CGP #### [address] [address] Single Fold Machine Operator: Diego Bashir MD Cocaine Metabolite Negative Normal [facility] Comment on above: Performed By: #### U CGP #### [address] [address] Single Fold Machine Operator: Diego Bashir MD Methadone Negative Normal NEG [facility] Comment on above: Performed By: #### U CGP #### [address] [address] Single Fold Machine Operator: Diego Bashir MD Methamphetamine, Ur Negative Normal NEG [facility] Comment on above: Performed By: #### U CGP #### [address] [address] Single Fold Machine Operator: Diego Bashir MD Opiate(s), Ur Negative Normal NEG [facility] Comment on above: Performed By: #### U CGP #### [address] [address] Single Fold Machine Operator: Diego Bashir MD Oxycodone, Urine Negative Normal NEG [facility] Comment on above: Performed By: #### U CGP #### [address] [address] Single Fold Machine Operator: Diego Bashir MD Phencyclidine, Ur Negative Normal [facility] Comment on above: Performed By: #### U CGP #### [address] [address] Single Fold Machine Operator: Diego aBshir MD Propoxyphene,Urine Negative Normal [facility] Comment on above: Performed By: #### U CGP #### [address] [address] Single Fold Machine Operator: Diego Bashir MD Tricyclic Antidepressants Negative Normal [facility] Comment on above: Result Comment: Drug screen results are to be used for medical purposes only. All positive results are unconfirmed. Testing for employment or legal uses should be sent to a reference laboratory for confirmation. Performed By: #### U CGP #### [facility] [address] [place] [phone] Single Fold Machine Operator: Diego Bashir MD Urine Drug Screen, Chad gonzalez 02-21-2022 Amphetamine Screen, Ur Negative NEGATIVE [facility] Barbiturate Screen, Ur Negative NEGATIVE [facility] Benzodiazepine Screen, Urine Negative NEGATIVE [facility] Buprenorphine Urine Negative NEGATIVE [facility] Cannabinoid Scrn, Ur Negative NEGATIVE [facility] Cocaine Metabolite, Urine Negative NEGATIVE [facility] Methadone Screen, Urine Negative NEGATIVE [facility] Methamphetamine, Urine Negative NEGATIVE [facility] Opiates, Urine Negative NEGATIVE [facility] Oxycodone Screen, Ur Negative NEGATIVE [facility] Phencyclidine, Urine Negative NEGATIVE [facility] Propoxyphene, Urine Negative NEGATIVE [facility] Tricyclic Antidepressants, Urine Negative NEGATIVE [facility] Comment on above: Drug screen results are to be used for medical purposes only. All positive results are unconfirmed. Testing for employment or legal uses should be sent to a reference laboratory for confirmation. [facility] TILT TABLE TESTon 01-26-2022 TILT TABLE TEST [address] [address] TILT TABLE TEST PATIENT NAME: FABIEN PERAZA : 2000 MED REC NO: [id number] ROOM: ACCOUNT NO: [id number] ADMIT DATE: 01/25/2022 PROVIDER: Jade Soto MD Cardiovascular Diagnostics Department DATE OF PROCEDURE: 01/25/2022 ORDERING PROVIDER: Nick Brown CNP PRIMARY CARE PROVIDER: Nick Brown CNP INTERPRETING PHYSICIAN: Jade Soto MD Diagnosis: Palpitations/vertigo PROCEDURE SUMMARY: After explaining the risk, benefits and alternatives to the procedure, informed written consent was obtained. The patient was brought to the tilt table laboratory in a fasting and resting state. The patient was placed on the tilt table in the supine position, ECG patches were applied and an IV was placed. The patient's baseline blood pressure was 124/67 mmHg with a heart rate of 65/minute. The patient was then raised to the 70 degree head upright tilt position with and pulse rate, blood pressure and cardiac rhythm were monitored and recorded each minute of the study for a maximum of 30 minutes. During the initial 20 minutes of the study, the patient's blood pressure ranged from a high of 129/92 mmHg to a low of 106/65 mmHg, while their heart rate ranged from a low of 76/minute to a high of 96/minute. During this period, the patient reported mild lightheadedness, chest tightness. During the last 10 minutes of the study, nitroglycerin 0.3 mg was give sublingually. During this time, the patient's blood pressure ranged from a high of 111/70 mmHg to a low of 85/44 mmHg, while their heart rate ranged from a low of 91/minute to a high of 130/minute. During this period, the patient reported severe lightheadedness, palpitations, headache, vision changes. At this point, the patient was returned to the supine position and monitored for an additional ten minutes. Once the patient felt well enough to be discharged home, they were discharged home with instructions to follow up with their primary care physician and/or paper rewinder as previously scheduled. STUDY CONCLUSIONS: Abnormal head upright tilt table study. The patient's heart rate, blood pressure response and symptoms were most consistent with postural orthostatic tachycardia syndrome. Combined with vigilant maintenance of euvolemia and maintaining a moderate salt intake, pharmacologic treatment with Florinef and/or a serotonin selective reuptake inhibitor (SSRI) such as Lexapro, ProAmatine and/or beta blockers among other treatments have shown some effectiveness in the treatment of this condition. JADE SOTO MD CHASITY/DARCY_JEMMA Doc#: Unknown CC: Nick Brown, [employer] [facility] Basic Metabolic Panelon 06-3 Anion gap [Moles/Vol] 11 mmol/L 9 - 17 mmol/L [facility] Calcium [Mass/Vol] 9.6 mg/dL 8.6 - 10.4 mg/dL [facility] Chloride [Moles/Vol] 104 mmol/L 98 - 107 mmol/L [facility] CO2 [Moles/Vol] 24 mmol/L 20 - 31 mmol/L [facility] Creatinine [Mass/Vol] 0.74 mg/dL 0.50 - 0.90 mg/dL [facility] GFR >60 >60 mL/min [facility] GFR Non- >60 >60 mL/min [facility] Glucose [Mass/Vol] 91 mg/dL 70 - 99 mg/dL [facility] Potassium [Moles/Vol] 4.0 mmol/L 3.7 - 5.3 mmol/L [facility] Sodium [Moles/Vol] 139 mmol/L 135 - 144 mmol/L [facility] Urea nitrogen (BldV) [Mass/Vol] 14 mg/dL 6 - 20 mg/dL [facility] Urea nitrogen/Creatinine (Bld) [Mass ratio] 19 [facility] Basic Metabolic Profon 01-13 (cont.) Normal [facility] Comment on above: Result Comment: Aver age GFR for 20-29 years old: 116 mL/min/1.73sq m Chronic Kidney Disease: <60 mL/min/1.73sq m Kidney failure: <15 mL/min/1.73sq m eGFR calculated using average adult body mass. Additional eGFR calculator available at: http://www.[employer]/multiple_crcl_2012.htm Performed By: #### B RIC, CBC #### [facility] [address] [place] [address] Single Fold Machine Operator: Artem Jones MD Anion gap [Moles/Vol] 11 mmol/L Normal - [facility] Comment on above: Performed By: #### B RIC, CBC #### [facility] [address] [place] [address] Single Fold Machine Operator: Artem Jones MD BUN/CRE Ratio 19 Normal - [facility] Comment on above: Performed By: #### B RIC, CBC #### [facility] [address] [place] [id number] [employer] Operator: Artem Jones MD Calcium [Mass/Vol] 9.6 mg/dL Normal 8.6-10.4 [facility] Comment on above: Performed By: #### B MP, CBC #### [facility] [address] [place] [address] [employer] Operator: Artem Jones MD Chloride [Moles/Vol] 104 mmol/L Normal 98-107 [facility] Comment on above: Performed By: #### B MP, CBC #### [facility] [address] [place] [address] [employer] Operator: Artem Jones MD CO2 [Moles/Vol] 24 mmol/L Normal 20-31 [facility] Comment on above: Performed By: #### B MP, CBC #### [facility] [address] [place] [address] [employer] Operator: Artem Jones MD Creatinine [Mass/Vol] 0.74 mg/dL Normal 0.50-0.90 [facility] Comment on above: Performed By: #### B MP, CBC #### [facility] [address] [place] [address] [employer] Operator: Artem Jones MD GFR, Amer >60 Normal >60 [facility] Comment on above: Performed By: #### B MP, CBC #### [facility] [address] [place], [place] [id number] [employer] Operator: Artem Jones MD GFR,non Amer >60 Normal >60 [facility] Comment on above: Performed By: #### B MP, CBC #### [facility] [address] [place], [place] [id number] [employer] Operator: Artem Jones MD Glucose [Mass/Vol] 91 mg/dL Normal 70-99 [facility] Comment on above: Performed By: #### B MP, CBC #### [facility] [address] [place], [place] [id number] [employer] Operator: Artem Jones MD Potassium [Moles/Vol] 4.0 mmol/L Normal 3.7-5.3 [facility] Comment on above: Performed By: #### B MP, CBC #### [facility] [address] [place], [place] [id number] [employer] Operator: Artem Jones MD Sodium [Moles/Vol] 139 mmol/L Normal 135-144 [facility] Comment on above: Performed By: #### B MP, CBC #### [address] [place], [place] [id number] [employer] Machine Operator: Artem Jnoes MD Staging: Normal [facility] Comment on above: Result Comment: Stag e 1: Some kidney damage normal GFR Stage 2: Mild kidney damage GFR 60-89 Stage 3: Moderate kidney damage GFR 30-59 Stage 4: Severe kidney damage GFR 15-29 Stage 5: Severe kidney damage GFR <15 ESRD - chronic treatment by dialysis or transplant Performed By: #### B MP, CBC #### [address] [place], [place] [id number] [employer] Machine Operator: Artem Jones MD Urea nitrogen [Mass/Vol] 14 mg/dL Normal 6-20 [facility] Comment on above: Performed By: #### B MP, CBC #### [address] [place], [place] [id number] [employer] Operator: Artem Jones MD CBCon 01-13-2022 Erythrocyte distribution width (RBC) [Ratio] 12.4 % Normal 11.8-14.4 [facility] Comment on above: Performed By: #### B MP, CBC #### [address] [place] [address] Single Fold [employer] Operator: Artem Jones MD Hematocrit (Bld) [Volume fraction] 39.7 % Normal 36.3-47.1 [facility] Comment on above: Performed By: #### B MP, CBC #### [facility] [address] [place] [address] [employer] Operator: Artem Jones MD Hemoglobin (Bld) [Mass/Vol] 13.0 g/dL Normal 11.9-15.1 [facility] Comment on above: Performed By: #### B MP, CBC #### [address] [place] [address] Single Fold Machine Operator: Artem Jones MD MCH (RBC) [Entitic mass] 27.7 pg Normal 25.2-33.5 [facility] Comment on above: Performed By: #### B MP, CBC #### [address] [place] [address] Single Fold Machine Operator: Artem Jones MD MCHC (RBC) [Mass/Vol] 32.7 g/dL Normal 28.4-34.8 [facility] Comment on above: Performed By: #### B MP, CBC #### [address] [place] [address] Single Fold Machine Operator: Artem Jones MD MCV (RBC) [Entitic vol] 84.6 fL Normal 82.6-102.9 [facility] Comment on above: Performed By: #### B RIC, CBC #### [address] [place] [address] Single Fold Machine Operator: Artem Jones MD NRBC Automated 0.0 per 100 WBC Normal 0.0 [facility] Comment on above: Performed By: #### B MP, CBC #### [address] [place] [address] Single Fold Machine Operator: Artem Jones MD Platelet mean volume (Bld) [Entitic vol] 9.1 fL Normal 8.1-13.5 [facility] Comment on above: Performed By: #### B MP, CBC #### [facility] [address] [place] [address] Single Fold Machine Operator: Artem Jones MD Platelets (Bld) [#/Vol] 275 10*3/uL Normal 138-453 [facility] Comment on above: Performed By: #### B MP, CBC #### [facility] [address] [place] [address] Single Fold Machine Operator: Artem Jones MD RBC (Bld) [#/Vol] 4.69 10*6/uL Normal 3.95-5.11 [facility] Comment on above: Performed By: #### B MP, CBC #### [facility] [address] [place] [address] Single Fold Machine Operator: Artem Jones MD WBC (Bld) [#/Vol] 8.2 10*3/uL Normal 3.5-11.3 [facility] Comment on above: Performed By: #### B MP, CBC #### [facility] [address] [place] [address] Single Fold Machine Operator: Artem Jones MD Hematocrit (Bld) [Volume fraction] 39.7 % 36.3 - 47.1 % [facility] Hemoglobin (Bld) [Mass/Vol] 13.0 g/dL 11.9 - 15.1 g/dL [facility] MCH (RBC) [Entitic mass] 27.7 pg 25.2 - 33.5 pg [facility] MCHC (RBC) [Mass/Vol] 32.7 g/dL 28.4 - 34.8 g/dL [facility] MCV (RBC) [Entitic vol] 84.6 fL 82.6 - 102.9 fL [facility] NRBC Automated 0.0 0.0 per 100 WBC [facility] Platelet distribution width (Bld) [Ratio] 12.4 % 11.8 - 14.4 % [facility] Platelet mean volume (Bld) [Entitic vol] 9.1 fL 8.1 - 13.5 fL [facility] Platelets (Bld) [#/Vol] 275 10*3/uL [facility] RBC (Bld) [#/Vol] 4.69 10*6/uL 3.95 - 5.11 m/uL [facility] WBC (Bld) [#/Vol] 8.2 10*3/uL [facility] Laboratory - Chemistry and C hemistry - challengeon 01-13-2022 GFR/1.73 sq M.predicted MDRD (S/P/Bld) [Vol rate/Area] [facility] Comment on above: Average GFR for 20-2 9 years old: 116 mL/min/1.73sq m Chronic Kidney Disease: <60 mL/min/1.73sq m Kidney failure: <15 mL/min/1.73sq m eGFR calculated using average adult body mass. Additional eGFR calculator available at: http://www.BlackBridge/multiple_crcl_2012.htm Stage 1: Some kidney damage normal GFR Stage 2: Mild kidney damage GFR 60-89 Stage 3: Moderate kidney damage GFR 30-59 Stage 4: Severe kidney damage GFR 15-29 Stage 5: Severe kidney damage GFR <15 ESRD - chronic treatment by dialysis or transplant PROGRESSon 10-12-2017 [facility] NOTES Normal [facility] PROGRESSon 09-21-2017 [facility] NOTES Normal [facility] Vital Signs Date Time Vital Sign Value Performing Clinician Faci lity 09-26-2022 08:16-0400 Body temperature 98.1 [degF] Zak Bejarano MD Work Phone: [facility] 09-26-2022 08:16-0400 Diastolic blood pressure 80 mm[Hg] Zak Bejarano MD Work Phone: [facility] 09-26-2022 08:16-0400 Heart rate 81 /min Zak Bejarano MD Work Phone: [facility] 09-26-2022 08:16-0400 Respiratory rate 16 /min Zak Bejarano MD Work Phone: [facility] 09-26-2022 08:16-0400 Systolic blood pressure 130 mm[Hg] Zak Bejarano MD Work Phone: [facility] [employer] 09-25-2022 08:04-0400 SaO2% (BldA) [Mass fraction] 99 % Zak Bejarano MD Work Phone: [facility] [employer] 08-02-2022 18:01-0500 Body height 157.5 cm Pete Sol APRN Yanet CNAlison Work Phone: [facility] [employer] 08-02-2022 18:01-0500 Body mass index (BMI) [Ratio] 35.85 kg/m2 Pete Sol APRN Yanet CNAlison Work Phone: [facility] [employer] 08-02-2022 18:01-0500 Body weight 88.91 kg Pete Sol APRN Yan[employer] CNAlison Work Phone: [email or web address] 08-02-2022 17:37-0500 Diastolic blood pressure 70 mm[Hg] Pete Sol APRN [employer] CNAlison Work Phone: [email or web address] 08-02-2022 17:37-0500 Heart rate 93 /min Pete Holt CNM Work Phone: [facility] [employer] 08-02-2022 17:37-0500 Respiratory rate 18 /min Pete Sol APRN Yanet CNAlison Work Phone: [facility] [employer] 08-02-2022 17:37-0500 Systolic blood pressure 118 mm[Hg] Pete Sol APRN Yanet CNAlison Work Phone: [facility] [employer] 08-02-2022 17:17-0500 Body temperature 97.9 [degF] Pete Sol APRN Yanet CNAlison Work Phone: [facility] [employer] 01-14-2020 10:40-0400 BMI (Body Mass Index) 30.2 kg/m2 [facility] Work Phone: 01-14-2020 10:40-0400 Body weight 74.84 kg [facility] Work Phone: 01-14-2020 10:400400 BSA (Body Surface Area) 1.76 m2 [facility] Work Phone: 01-14-2020 10:400400 Height 157.48 cm [facility] Work Phone: Encounters Encounter Date Encounter Type Care Provider Facility Start: 07-06-2023 End: 07-06-2023 ambulatory MELO CAROLE Not Available Start: 06-07-2023 End: 06-07-2023 ambulatory MELO CAROLE Not Available Start: 09-24-2022 End: 09-26-2022 Evaluation and management of inpatient Zak Bejarano MD Work Phone: [email or web address] Start: 09-14-2022 End: 09-15-2022 ambulatory NICK Sarita [facility] Start: 09-14-2022 End: 09-14-2022 Subsequent hospital visit by physician Nick Brown APRN - [employer] Work Phone: [facility] [place] [facility] Comment on above: 36 weeks gestation o f Start: 09-14-2022 End: 09-14-2022 ambulatory [facility] Start: 09-14-2022 End: 09-14-2022 Subsequent hospital visit by physician Nick Brown APRN - [employer] [facility] Comment on above: Elevated blood press ure affecting , antepartum Start: 09-08-2022 End: 09-08-2022 ambulatory ADITYA [facility] Start: 08-25-2022 End: 08-26-2022 ambulatory JACQUI [facility] Start: 08-25-2022 End: 08-25-2022 Subsequent hospital visit by physician Nick Brown APRN - [employer] Work Phone: [facility] [place] [facility] Comment on above: Encounter for superv ision of normal first in second trimester Start: 08-16-2022 End: 08-17-2022 ambulatory [facility] [place] [facility] Start: 08-16-2022 End: 08-16-2022 Subsequent hospital visit by physician [facility] Echo Room [facility] Echocardiography Comment on above: Light headedness; POTS (postural orthostatic tachycardia syndrome); Abnormal tilt table test Light headedness; POTS (postural orthostatic tachycardia syndrome); Abnormal tilt table test; 29 weeks gestation of ; Chest pain, unspecified type Start: 08-02-2022 End: 08-02-2022 ambulatory [facility] [place] [facility] Start: 08-02-2022 End: 08-02-2022 Subsequent hospital visit by physician Pete Sol APRN - [place] Work Phone: [facility] Delivery Start: 02-21-2022 End: 02-22-2022 ambulatory NICK Garcia l Start: 02-21-2022 End: 02-21-2022 Subsequent hospital visit by physician Nick Brown APRN - [place] Work Phone: [facility] Laboratory Comment on above: Encounter for superv ision of normal , antepartum, unspecified ; Positive urine test Start: 01-25-2022 End: 01-26-2022 ambulatory [facility] [place] [facility] Start: 01-25-2022 End: 01-25-2022 Subsequent hospital visit by physician [facility] Lehr Attendant [facility] EKG Comment on above: Heart palpitations Start: 01-13-2022 End: 01-14-2022 ambulatory [facility] [place] [facility] Start: 01-13-2022 End: 01-13-2022 Subsequent hospital visit by physician Nick Holt CNP Work Phone: [facility] Laboratory Comment on above: Heart palpitations Start: 03-15-2021 End: 03-15-2021 Patient encounter procedure Cari Toribio MD [facility] Laboratory Start: 03-15-2021 End: 03-15-2021 Subsequent hospital visit by physician Cari Toribio MD [facility] Laboratory Comment on above: Women's annual routi ne gynecological examination Start: 01-14-2020 End: 01-14-2020 Patient encounter procedure Meri Silva Work Phone: [facility] Work Phone: Start: 01-14-2020 End: 01-14-2020 Telemedicine consultation with patient Radha Cuevas Work Phone: [facility] Work Phone: Start: 10-12-2017 Ambulatory [facility] Start: 09-21-2017 Ambulatory [facility] Procedures Date Procedure Procedure Detail Performing Clinician Start: 09-24-2022 Antibody screen Zak luna MD Work Phone: Start: 09-24-2022 Blood typing serolog ic abo Zak Bejarano MD Work Phone: Start: 09-24-2022 End: 09-24-2022 Comprehensive metabolic panel Zak Bejarano MD Work Phone: Start: 09-24-2022 Drug tst prsmv instr mnt chem analyzers pr date Zak Bejarano MD Work Phone: Start: 09-24-2022 Urinalysis microscop ic only Zak Bejarano MD Work Phone: Start: 09-24-2022 Urnls dip stick/tabl et rgnt auto w/o microscopy Zak Bejarano MD Work Phone: Start: 09-14-2022 End: 09-14-2022 Comprehensive metabolic panel Elizabeth Galvez [employer] - CNM Work Phone: Start: 08-25-[address] gtt 3 specimens Jacqui Stiven Russell [employer] - CNM Work Phone: Start: 08-16-2022 Echo tthrc r-t 2d w/wom-mode compl spec&colr d Jade Soto MD Work Phone: Start: 08-02-2022 Urnls dip stick/tabl et rgnt auto w/o microscopy Pete Sol MET[employer] T[employer]BE C[employer]TER - CNM Work Phone: Start: 02-21-2022 Antibody screen Nick Brown [employer] - [facility] Work Phone: Start: 02-21-2022 End: 02-21-2022 Antibody hiv-1&hiv-2 single result Pete Sol [facility] Work Phone: Start: 02-21-2022 Drug screen, qualitate/multi Peet Sol [facility] Work Phone: Start: 01-13-2022 Basic metabolic pane l calcium total Nick Stein Stephanie [facility] [employer] [facility] Work Phone: Start: 03-15-2021 Microscopic observat ion [Identifier] in Cervix by Cyto stain Nick Stephanie [facility] [employer] [facility] Work Phone: Start: 01-14-2020 MIGRAINE HEADACHE Gertrude e Faith NEGATED: Highlighted row has not occurred!Start: 01-14-2020 reported prior surgical / procedural history Radha Faith Plan of Treatment Date Care Activity Detail Author Start: 03-15-2024 Screening for malignant neoplasm of cervix Pap smear [employer] [facility] Start: 05-09-2023 Depression Screen [facility] Start: 05-09-2023 Influenza vaccination Flu vaccine (#1) [employer] [facility] Comment on above: Postponed from 02/14/2022 (Patient Refus ed) Start: 02-21-2023 Screening for Chlamydia trachomatis Chlamydia/GC screen [employer] [facility] Start: 02-03-2023 Depression Screen Depression Screen [facility] Start: 01-13-2023 COVID-19 Vaccine (#1) COVID-19 Vaccine (#1) [facility] Comment on above: Postponed from 05/17/2000 (Patient Refus ed) Start: 01-13-2023 COVID-19 Vaccine (1) COVID-19 Vaccine (1) [employer] [facility] Comment on above: Postponed from 11/14/2004 (Patient Refus ed) Start: 01-13-2023 Depression Screen Depression Screen [facility] Start: 01-13-2023 DTaP/Tdap/Td vaccine (1 - Tdap) DTaP/Tdap/Td vaccine (1 - Tdap) [facility] Comment on above: Postponed from 11/14/2018 (Patient Refus ed) Start: 01-13-2023 Hepatitis C screening Hepatitis C screen [facility] Comment on above: Postponed from 11/14/2017 (Patient Refus ed) Start: 01-13-2023 HIV screening HIV screen [facility] Comment on above: Postponed from 11/14/2014 (Patient Refus ed) Start: 01-13-2023 HPV vaccine (1 - 2-dose series) HPV vaccine (1 - 2-dose series) [facility] Comment on above: Postponed from 11/14/2010 (Patient Refus ed) Start: 11-30-2022 End: 11-30-2022 Patient encounter procedure 11/30/2022 Office Visit Cardiology Samantha Mora PA-C [address] [place] [address] [phone] [facility] Start: 10-31-2022 End: 10-31-2022 ambulatory 10/31/2022 Visit Obstetrics and Gynecology Jacqui Russell, [employer] - CNM [address] [place] [address] [facility] Start: 09-21-2022 End: 09-21-2022 Patient encounter procedure 09/21/2022 Office Visit Cardiology Samantha Mora PA-C [address] [place] [id number] [facility] Start: 09-20-2022 End: 09-20-2022 Patient encounter procedure 09/20/2022 Routine Obstetrics and Gynecology Jacqui Russell, MET[employer] T[employer]BE C[employer]TER - CNM [address] [place] [address] [facility] Start: 09-14-2022 End: 09-14-2022 Patient encounter procedure 09/14/2022 Routine Obstetrics and Gynecology Elizabeth Galvez, MET[employer] C[employer]TER - CNM [address] [address] [facility] Start: 09-08-2022 End: 09-08-2022 Patient encounter procedure 09/08/2022 Routine Obstetrics and Gynecology Aditya Galvan, METAL TUBE CUTTER - PCAS [address] [address] [facility] Start: 09-08-2022 End: 09-08-2022 Professional / ancillary services management 09/08/2022 Ancillary Procedure Obstetrics and Gynecology [facility] Start: 08-25-2022 End: 08-25-2022 Patient encounter procedure 08/25/2022 Routine Obstetrics and Gynecology Jacqui Russell, MET[employer] T[employer]BE C[employer]TER - CNM [address] [place] [address] [facility] Start: 08-16-2022 End: 08-16-2022 Patient encounter procedure [facility] Start: 08-10-2022 End: 08-10-2022 Patient encounter procedure 08/10/2022 Routine Obstetrics and Gynecology Arin Sykes, DO [address] [place] [address] [facility] Start: 08-10-2022 End: 08-10-2022 Professional / ancillary services management 08/10/2022 Ancillary Procedure Obstetrics and Gynecology [facility] Start: 08-09-2022 End: 08-09-2022 Patient encounter procedure 08/09/2022 Office Visit Primary Care Nick Brown, MET[employer] T[employer] CUTTER - [employer] [address] [place] [address] [facility] [place] Start: 08-03-2022 End: 08-03-2022 Patient encounter procedure 08/03/2022 Routine Obstetrics and Gynecology Elizabeth Galvez, MET[employer] T[employer]BE CUTTER - CNM [address] [place] [address] [facility] Start: 05-09-2022 End: 05-09-2022 Patient encounter procedure 05/09/2022 Office Visit Primary Care Nick Brown, [employer] CUTTER - [employer] [address] [place] [address] [facility] Start: 04-04-2022 End: 04-04-2022 Patient encounter procedure 04/04/2022 Routine Obstetrics and Gynecology Pete Sol, METAL TUBE CUTTER - CNM [address] [facility] [address] [place] [address] [facility] Start: 03-17-2022 Influenza vaccination [facility] Start: 02-03-2022 End: 02-03-2022 Patient encounter procedure 02/03/2022 Office Visit Primary Care Nick Brown, [employer] C[employer]TER - [employer] [address] [place] [address] [facility] Start: 03-17-2021 Influenza vaccination Flu vaccine (#1) [facility] Work Phone: Start: 11-14-2020 Screening for malignant neoplasm of cervix Cervical cancer screen [facility] Work Phone: Start: 02-13-2020 _SARS-CoV-2 COVID19 test [facility] Work Phone: Start: 01-14-[address] up Testing [facility] Work Phone: Start: 11-14-2018 DTaP/Tdap/Td vaccine (1 - Tdap) DTaP/Tdap/Td vaccine (1 - Tdap) [facility] Work Phone: Start: 2015 Screening for Chlamydia trachomatis Chlamydia screen [email or web address] Start: 11-14-2014 HIV screening HIV screen [employer] Phone: Start: 2011 COVID-19 Vaccine (1) COVID-19 Vaccine (1) [employer] Phone: Start: 11-14-2010 HPV vaccine (1 - 2-dose series) HPV vaccine (1 - 2-dose series) [employer] Phone: Start: 11-14-2000 Varicella vaccine (1 of 2 - 2-dose childhood series) Varicella vaccine (1 of 2 - 2-dose childhood series) [employer] Phone: Start: 1999 Hepatitis C screening Hepatitis C screen [employer] Phone: End: 08-02-2022 Bacteria identified in Urine by Culture Urine culture Microbiology Routine One Time for 1 Occurrences starting 08/02/2022 until 08/02/2022 [employer] Phone: Comment on above: One Time for 1 Occurrences starting 07/17 until 08/02/2022 End: 09-24-2022 Bacteria identified in Urine by Culture Urine culture Microbiology Routine One Time for 1 Occurrences starting 09/24/2022 until 09/24/2022 [employer] Phone: Comment on above: One Time for 1 Occurrences starting 09/14 until 09/24/2022 End: 02-21-2022 C.trachomatis N.gonorrhoeae DNA, Urine [employer] Phone: Comment on above: 1 Occurrences starting 02/21/2022 until 02/21/2022 End: 08-16-2022 Continuous cardiac monitoring, >2 up to 14 days Continuous cardiac monitoring, >2 up to 14 days Cardiac Services Routine Light headedness POTS (postural orthostatic tachycardia syndrome) Abnormal tilt table test 29 weeks gestation of Chest pain, unspecified type 1 Occurrences starting 08/16/2022 until 08/16/2022 [employer] Phone: Comment on above: 1 Occurrences starting 08/16/2022 until 08/16/2022 Continuous pulse oximetry Pulse oximetry, continuous while on epidural Respiratory Care Routine Every 4hr until discontinued starting 09/25/2022 [employer] Phone: Comment on above: Every 4hr until discontinued starting End: 09-14-2022 Culture, Strep B Screen, Vaginal/Rectal [employer] Phone: Comment on above: 1 Occurrences starting 09/14/2022 until 09/14/2022 End: 02-21-2022 Culture, Urine [employer] Phone: Comment on above: 1 Occurrences starting 02/21/2022 until 02/21/2022 End: 03-15-2021 Cytopathology procedure, preparation of smear, genital source PAP SMEAR Lab Routine Women's annual routine gynecological examination 1 Occurrences starting 03/15/2021 until 03/15/2021 [employer] Phone: Comment on above: 1 Occurrences starting 03/15/2021 until 03/15/2021 nonstress test nonst ress test OB Routine Daily until discontinued starting 08/03/2022 [employer] Phone: Comment on above: Daily until discontinued starting 2022 nonstress test nonst ress test OB Routine Daily until discontinued starting 09/25/2022 [employer] Phone: Comment on above: Daily until discontinued starting 2022 Nonrebreather mask oxygen Nonrebreather mask oxygen Respiratory Care Routine As directed - RT (PRN) until discontinued starting 08/02/2022 [employer] Phone: Comment on above: As directed - RT (PRN) until discontinue d starting 08/02/2022 Nonrebreather mask oxygen Nonrebreather mask oxygen Respiratory Care Routine As directed - RT (PRN) until discontinued starting 09/24/2022 [employer] Phone: Comment on above: As directed - RT (PRN) until discontinue d starting 09/24/2022 Nonrebreather mask oxygen Nonrebreather mask oxygen Respiratory Care Routine As directed - RT (PRN) until discontinued starting 09/24/2022 [employer] Phone: Comment on above: As directed - RT (PRN) until discontinue d starting 09/24/2022 Oxygen therapy [Minimum Data Set] Initiate Oxygen Therapy Protocol while on epidural Respiratory Care Routine Daily until discontinued starting 09/24/2022 [employer] Phone: Comment on above: Daily until discontinued starting 2022 End: 09-25-2022 SURGICAL PATHOLOGY REPORT SURGICAL PATHOLOGY REPORT Lab Routine Once for 1 Occurrences starting 09/25/2022 until 09/25/2022 [employer] Phone: Comment on above: Once for 1 Occurrences starting 09/26/19 until 09/25/2022 End: 08-02-2022 SVE SVE Point of Care Testing Routine One Time for 1 Occurrences starting 08/02/2022 until 08/02/2022 [employer] Phone: Comment on above: One Time for 1 Occurrences starting 07/17 until 08/02/2022 End: 09-24-2022 SVE SVE Point of Care Testing Routine One Time for 1 Occurrences starting 09/24/2022 until 09/24/2022 [employer] Phone: Comment on above: One Time for 1 Occurrences starting 09/14 until 09/24/2022 Immunizations Immunization Date Immunization Notes Care Provider [facility] 09-25-2022 diphtheria, tetanus toxoids and acellular pertussis vaccine, unspecified formulation Zak Bejarano MD Work Phone: [employer] Phone: Payers Date Payer Category Payer Unknown [id number] [id number] [id number] 2014 Unknown [id number] 1999 Unknown [id number] 2.16.8 [id number] 1999 Unknown [id number] 2.16.8 40.1.558033.3.579.2.173 1999 Unknown [id number] 2.16.8 40.1.587343.3.579.2.173 1999 Unknown [id number] 2.16.8 40.1.610872.3.579.2.173 1999 Unknown [id number] 2.16.8 40.1.475899.3.579.2.173 1999 Unknown [id number] 2.16.8 40.1.713253.3.579.2.173 1999 Unknown [id number] 2.16.8 40.1.556843.3.579.2.173 1999 Unknown [id number] 2.16.8 40.1.389405.3.579.2.173 1999 Unknown [id number] 2.16.8 40.1.398778.3.579.2.173 1999 Unknown [id number] 2.16.8 40.1.963974.3.579.2.173 1999 Unknown [id number] 2.16.840 .1.991953.3.579.2.1259 1999 Unknown [id number] 2.16.840 .1.832769.3.579.2.1259 1999 Unknown [id number] 2.16. 840.1.949702.3.579.2.175 1999 Unknown [id number] 2.16. 840.1.448784.3.579.2.175 1999 Unknown [id number] 2.16. 840.1.084710.3.579.2.175 1999 Unknown [id number] 2.16. [id number] Self-pay [id number] 2.16.840 .[id number] Social History Date Type Detail Facility Assertion Gender identity finding (finding) [facility] Work Phone: Assertion Finding of sexua l orientation (finding) [facility] Work Phone: Tobacco smoking status Unknown if ever smoked [facility] Work Phone: Start: 05-18-2012 End: 03-15-2021 Tobacco smoking status NCIS Never smoker [employer] Phone: Start: 05-18-2012 End: 03-15-2021 Tobacco use and exposure Never used [employer] Start: 03-15-2021 End: 09-25-2022 Alcohol intake Current non-drinker of alcohol (finding) [employer] Phone: Start: 1999 [facility] Start: 01-13-2022 History SDOH Financial 5 [facility] [employer] Phone: Start: 01-13-2022 History SDOH Food Worry 1 JUAN [employer] Phone: Start: 01-19-2022 JUAN MATTHEWS S [employer] Phone: Start: 07-23-2022 End: 09-24-2022 Exposure to SARS-CoV-2 (event) Not sure [employer] Phone: NEGATED: Highlighted row Assertion Current drinker of alcohol (finding) [facility] Work Phone: NEGATED: Highlighted row Assertion Finding relating to drug misuse behavior (finding) [facility] Work Phone: NEGATED: Highlighted row Assertion Exposure to pollution (event) [facility] Work Phone: NEGATED: Highlighted row Assertion Tobacco user (finding) [facility] Work Phone: Clinical Notes 01-25-2022 to 09-26-2022 Discharge InstructionsZenaida Grant APRN - [place] - 09/26/2022 9:02 AM EDIAN Russo CNM - 09/26/2022 8:56 AM EDShelton Bejarano MD - 09/24/2022 10:40 PM ESTAllyson Work - 08/16/2022 10:00 AM EST Note Date & Type Note Facility 09-26-2022 Hospital Discharg e instructions Kiran Gamino RN - 09/26/2022 9:55 AM EDT Follow-up with your OB doctor as specified. [facility] OB Department phone: Dr. Asya Gruber CN Dr. Skye Sol CN [address] [facility] [address] [place] [facility] R[facility] CN [address] [facility] [id number] [phone] Kenya Tinajero, MSN, METAL TUBE CUTTER, CNM [facility] [address] [address] [address] Shields [address] [facility] [id number] Pete Recio CNM [address] [place] [address] [place] [address] Zenaida Grant CNM [address] [place] [address] [place] [address] [phone] DIET Eat a well balanced diet focusing on foods high in fiber and protein. Drink plenty of fluids especially water. To avoid constipation you may take a mild stool softener as recommended by your doctor or train electronic technician. ACTIVITY Gradually increase your activity. Resume exercise regimen only after advice by your doctor or train electronic technician. Avoid lifting anything heavier than a gallon of milk for SIX weeks. Avoid driving until your doctor or train electronic technician has given their approval. Rise slowly from a lying to sitting and then a standing position. Climb stairs one at a time. Use caution when carrying your baby up and down the stairs. NO SEXUAL Activity for 4-6 weeks or until advised by your doctor; Nothing in vagina: intercourse, tampons, or douching. Be prepared to discuss family planning at your follow-up OB visit. You may feel tired or have a lack of energy. You may continue your vitamin to replenish nutrients post delivery. Nap when baby naps to catch up on sleep. EMOTIONS You may feel keating, sad, teary, & overwhelmed. Contact your OB provider if you feel you may be showing signs of depression, or have thoughts of harming yourself or your . If will not stop crying, contact another adult for help or place in their crib on their back and take a break. NEVER shake your . BLEEDING Vaginal bleeding will decrease in amount over the next few weeks. You will notice that as your activity increases, your flow may increase. This is your body's way of telling you, you need to take things easier and rest more often. Call your care provider if you are saturating more than one maxi pad in an hour & resting does not help. BREAST CARE Take medications as recommended by your doctor or train electronic technician for pain If you develop a warm, red, tender area on your breast or develop a fever contact your OB provider. For moms: If you become engorged, feeding may be more difficult or painful for 1-2 days. You may find it helpful to hand express some milk so that the can latch on more easily. While , continue to take your vitamins as directed by your doctor or train electronic technician. Refer to the booklet in the folder/binder for more information. If you feel you need more assistance or have questions, please call Stacey Rodriguez IBCLC, oracle webcenter consultant, at or the OB department to schedule an appointment or phone consultation. For more FREE help, visit the Support Group on Monday evenings at 7 pm in the OB department. For NON- moms: You may apply ice packs to your breasts over your bra for twenty minutes at a time for comfort. Avoid stimulation to your breasts, when showering allow the water to strike your back not your breasts. Wear a good fitting bra until your milk dries, such as a sports bra. Use the kate-bottle after toileting until bleeding stops. Cleanse your perineum from front to back If used, stitches will dissolve in 4-6 weeks. You may use a sitz bath or soak in a clean tub as needed for comfort. Kegel exercises will help restore bladder control. SWELLING Try to keep your legs elevated when you are sitting. When lying down keep your legs elevated. When wearing stocking or socks, make sure they are not too tight. WHEN TO CALL THE DOCTOR If you have a temp of 100.6 or more. If your bleeding has increased and you are saturating a pad in an hour. Your abdomen is tender to touch. You are passing blood clots bigger than the size of a lemon. If you are experiencing extreme weakness or dizziness. If you are having flu-like symptoms such as achy muscles or joints. There is a foul smell or a green color to your vaginal bleeding. If you have pain that cannot be relieved. You have persistent burning or frequency with urination. Call if you have concerns about your well-being. You are unable to sleep, eat, or are having thoughts of harming yourself or your baby. You have swelling, bleeding, drainage, foul odor, redness, or warmth in/around your incision or stitches. You have a red, warm, tender area in your calf. documented in this encounter [facility] [employer] Work Phone: 09-26-2022 Hospital course Narrative Obstetrical Discharge Form Gestational Age:37w4d Antepartum complications: anemia Date of Delivery: 09/25/2022 Type of Delivery: Delivered By: Dr. Bejarano Assisted By:N/A Baby: female Anesthesia: epidural Intrapartum complications: None Feeding method: breast Blood type: A POSITIVE Rubella: Rubella Antibody, IgG Date Value Ref Range Status 02/21/2022 67.8 IU/mL Final Comment: REFERENCE RANGE: <5.0 NON-REACTIVE (non-immune) 5.0 TO 9.9 EQUIVOCAL >=10.0 REACTIVE (immune) T. Pallidium, IGG: T. pallidum, IgG Date Value Ref Range Status 02/21/2022 NONREACTIVE NONREACTIVE Final Comment: T. pallidum antibodies are not detected. There is no serological evidence of infection with T. pallidum (early primary syphilis cannot be excluded). Retest in 2-4 weeks if syphilis is clinically suspect. Hepatitis B Surface Antigen: Hepatitis B Surface Ag Date Value Ref Range Status 02/21/2022 NONREACTIVE NONREACTIVE Final HIV: No results found for: [id number] Results for orders placed or performed during the hospital encounter of 09/24/22 Urinalysis Result Value Ref Range Color, UA Yellow Yellow Turbidity UA Clear Clear Glucose, Ur NEGATIVE NEGATIVE Bilirubin Urine NEGATIVE NEGATIVE Ketones, Urine TRACE (A) NEGATIVE Specific Hyden, UA 1.010 1.010 - 1.020 Urine Hgb NEGATIVE NEGATIVE pH, UA 7.5 5.0 - 9.0 Protein, UA NEGATIVE NEGATIVE Urobilinogen, Urine Normal Normal Nitrite, Urine NEGATIVE NEGATIVE Leukocyte Esterase, Urine NEGATIVE NEGATIVE Comprehensive Metabolic Panel Result Value Ref Range Glucose 76 70 - 99 mg/dL BUN 3 (L) 6 - 20 mg/dL Creatinine 0.42 (L) 0.50 - 0.90 mg/dL Est, Glom Filt Rate >60 >60 mL/min/1.73m2 Bun/Cre Ratio 7 (L) 9 - 20 Calcium 8.9 8.6 - 10.4 mg/dL Sodium 136 135 - 144 mmol/L Potassium 3.6 (L) 3.7 - 5.3 mmol/L Chloride 103 98 - 107 mmol/L CO2 18 (L) 20 - 31 mmol/L Anion Gap 15 9 - 17 mmol/L Alkaline Phosphatase 140 (H) 35 - 104 U/L ALT 8 5 - 33 U/L AST 14 <32 U/L Total Bilirubin 0.3 0.3 - 1.2 mg/dL Total Protein 6.6 6.4 - 8.3 g/dL Albumin 3.5 3.5 - 5.2 g/dL Albumin/Globulin Ratio 1.1 1.0 - 2.5 CBC with Auto Differential Result Value Ref Range WBC 10.3 3.5 - 11.3 k/uL RBC 4.18 3.95 - 5.11 m/uL Hemoglobin 10.5 (L) 11.9 - 15.1 g/dL Hematocrit 31.9 (L) 36.3 - 47.1 % MCV 76.3 (L) 82.6 - 102.9 fL MCH 25.1 (L) 25.2 - 33.5 pg MCHC 32.9 28.4 - 34.8 g/dL RDW 14.7 (H) 11.8 - 14.4 % Platelets 298 138 - 453 k/uL MPV 8.7 8.1 - 13.5 fL NRBC Automated 0.0 0.0 per 100 WBC Seg Neutrophils 64 36 - 65 % Lymphocytes 25 24 - 43 % Monocytes 8 3 - 12 % Eosinophils % 1 1 - 4 % Basophils 1 0 - 2 % Immature Granulocytes 1 (H) 0 % Segs Absolute 6.71 1.50 - 8.10 k/uL Absolute Lymph # 2.52 1.10 - 3.70 k/uL Absolute Mcminn # 0.80 0.10 - 1.20 k/uL Absolute Eos # 0.08 0.00 - 0.44 k/uL Basophils Absolute 0.05 0.00 - 0.20 k/uL Absolute Immature Granulocyte 0.11 0.00 - 0.30 k/uL Lactate Dehydrogenase Result Value Ref Range LD 158 135 - 214 U/L Protein / Creatinine Ratio, Urine Result Value Ref Range Total Protein, Urine 17 mg/dL Creatinine, Ur 96.6 28.0 - 217.0 mg/dL Urine Total Protein Creatinine Ratio 0.18 0.00 - 0.20 Microscopic Urinalysis Result Value Ref Range WBC, UA 0 TO 2 0 - 5 /HPF RBC, UA 0 TO 2 0 - 2 /HPF Epithelial Cells UA 0 TO 2 0 - 25 /HPF Bacteria, UA 2+ (A) None Mucus, UA TRACE (A) None DRUG SCREEN MULTI URINE Result Value Ref Range Amphetamine Screen, Ur NEGATIVE NEGATIVE Barbiturate Screen, Ur NEGATIVE NEGATIVE Benzodiazepine Screen, Urine NEGATIVE NEGATIVE Cocaine Metabolite, Urine NEGATIVE NEGATIVE Methadone Screen, Urine NEGATIVE NEGATIVE Opiates, Urine NEGATIVE NEGATIVE Phencyclidine, Urine NEGATIVE NEGATIVE Cannabinoid Scrn, Ur NEGATIVE NEGATIVE Oxycodone Screen, Ur NEGATIVE NEGATIVE Fentanyl, Ur NEGATIVE NEGATIVE Buprenorphine Urine NEGATIVE NEGATIVE TYPE AND SCREEN Result Value Ref Range Expiration Date 09/27/2022,2359 Arm Band Number [id number] ABO/Rh A POSITIVE Antibody Screen NEGATIVE complications: anemia Discharge Medication: Medication List START taking these medications docusate 100 MG Caps Commonly known as: COLACE, DULCOLAX Take 100 mg by mouth 2 times daily as needed for Constipation ferrous sulfate 325 (65 Fe) MG tablet Commonly known as: IRON 325 Take 1 tablet by mouth 2 times daily ibuprofen 800 MG tablet Commonly known as: ADVIL;MOTRIN Take 1 tablet by mouth every 8 hours as needed for Pain CONTINUE taking these medications 1 PO Where to Get Your Medications These medications were sent to [facility], [place] - [address] - P [phone] F [phone] [address] [facility] [facility] [address] [address] docusate 100 MG Caps ibuprofen 800 MG tablet Admit date: 09/24/2022 3:00 PM Discharge Date: 09/26/2022 Discharged to: Home in stable condition Plan: Follow up in 6 week(s) for post visit, blood pressure check, breast feeding check, and post depression check documented in this encounter [facility] [employer] Phone: 09-26-2022 History of Presen t illness Narrative Department of Obstetrics and Gynecology Labor and Delivery Post Progress Note SUBJECTIVE: Pt doing well. States that she desires discharge to home today. Voices that she is and pumping. Denies concerns. OBJECTIVE: Vitals: BP 130/80 Pulse 81 Temp 98.1 F (36.7 C) (Oral) Resp 16 LMP 12/15/2021 SpO2 99% Unknown Patient Vitals for the past 24 hrs: BP Temp Temp src Pulse Resp 09/26/22 0816 130/80 98.1 F (36.7 C) Oral 81 16 09/26/22 0550 133/88 98.4 F (36.9 C) Oral 88 20 09/26/22 0107 118/67 98 F (36.7 C) Oral 82 16 09/25/22 2203 122/72 98.2 F (36.8 C) Oral 85 15 09/25/22 1810 (!) 141/82 98 F (36.7 C) Oral 98 16 09/25/22 1420 (!) 143/94 98 F (36.7 C) Oral (!) 114 16 09/25/22 1111 (!) 139/93 -- -- 97 16 09/25/22 1110 (!) 148/96 -- -- 99 16 09/25/22 1107 (!) 147/98 -- -- (!) 106 16 09/25/22 1053 (!) 142/89 98 F (36.7 C) Oral 93 16 09/25/22 1052 (!) 151/93 -- -- 91 16 09/25/22 1037 (!) 145/84 -- -- 93 16 09/25/22 1023 137/82 -- -- (!) 111 16 09/25/22 1007 136/86 -- -- 91 16 09/25/22 0952 128/78 -- -- 96 16 09/25/22 0937 129/80 -- -- (!) 101 16 09/25/22 0922 (!) 141/81 -- -- (!) 108 18 09/25/22 0907 132/68 98.6 F (37 C) Oral (!) 113 18 ABDOMEN: FFM U/1 GENITAL/URINARY: no concerns, minimal edema. Cor: RRR no Murmurs Pulmonary: clear to auscultation anterior and posterior Extremities: no Clubbing cyanosis or ecchymosis Psych: Appears to be bonding well with , appropriate affect. DATA: CBC: Lab Results Component Value Date/Time WBC 10.3 09/24/2022 04:08 PM RBC 4.18 09/24/2022 04:08 PM HGB 10.5 09/24/2022 04:08 PM HCT 31.9 09/24/2022 04:08 PM MCV 76.3 09/24/2022 04:08 PM MCH 25.1 09/24/2022 04:08 PM MCHC 32.9 09/24/2022 04:08 PM RDW 14.7 09/24/2022 04:08 PM PLT 298 09/24/2022 04:08 PM MPV 8.7 09/24/2022 04:08 PM ASSESSMENT : Principal Problem: Rupture of membranes with delay of delivery Term Spontaneous Vaginal Delivery Plan: Discharge to home. Reviewed discharge instructions. Follow up in office in 6 weeks. Rx to pharmacy. Department of Obstetrics and Gynecology Labor and Delivery Attending Progress Note SUBJECTIVE: No complaints. 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 S/P AROM. Patient progressing continue current management Provider at bedside. Admission orders received from Dr Bejarano. Amnioswab negative. documented in this encounter [employer] Phone: 08-16-2022 History of Presen t illness Narrative Explained policies and procedure of an echocardiogram/Doppler study. Patient instructed on extended gambling monitor indications and use. Diary sent with patient. 5-7 days documented in this encounter [employer] Phone: 08-02-2022 History of Presen t illness Narrative Patient ambulatory off unit at this time for discharge home. Discharge instructions reviewed with the patient. All questions and concerns were addressed. Unit number provided to the patient should they come up with any questions once they are home. Pt verbalizes understanding of instructions. CNM in unit, updated on SVE. Verbal order to discharge patient home at this time. Matt Sol CNM in unit at this time. Updated on patient arrival , c/o, VS and UA results. Verbal orders to check patient and discharge home if cervix is closed. Patient arrives ambulatory to unit with c/o contractions/abdominal tightenings. Pt states she has had these stomach tightening's for the past three days. Pt also states when she gets this pain in her abdomen she also feels it in her lower back. Pt denies any LOF, vaginal bleeding, UTI symptoms or recent intercourse. Pt reports +FM. Pt instructed to change into a gown and provide urine sample. documented in this encounter [facility] [employer] Phone: 08-02-2022 Hospital Discharg e instructions Wendy Choudhary RN - 08/02/2022 6:20 PM EST OUTPATIENT DISCHARGE Dr Skye Russell [facility] [address] [facility] [address] [phone] ACTIVITY LIMITATIONS: ( X )Up and about as desired and tolerated ( )Up to bathroom only ( )Lay on either side ( )Avoid heavy lifting or exercise ( X)No sex (X )No nipple stimulation ( )Complet bedrest ( )Avoid using stairs ( X)Increase fluids DRINK AT LEAST eight-8oz. Glasses of water daily. Call your Doctor if: ( )Contractions are every 5 minutes apart (from start of one to the start of the next contraction) lasting 60 seconds for at least 1 hour, strong enough you can not walk or talk through the contraction and regular. ( X)Bag of water breaks (X )Vaginal bleeding ( X)Unusual pain occurs ( X)Decreased movement ( X) labor: If you have 4 contractions in an hour Keep your scheduled follow up appointment. Or call for a follow up on . IN CASE OF EMERGENCY CONTACT LABOR AND DELIVERY . documented in this encounter [employer] Phone: 01-25-2022 History of Presen t illness Narrative Explained Holter monitor and diary. documented in this encounter [employer] Phone: Evaluation note Diagnosis Women's annual routine gynecological examination documented in this encounter [employer] Phone: evaluation note* Diagnosis Heart palpitations Palpitations documented in this encounter [employer] Phone: evaluation note* Diagnosis Heart palpitations Palpitations documented in this encounter [employer] Phone: evaluation note* Diagnosis Encounter for supervision of normal , antepartum, unspecified Positive urine test documented in this encounter [employer] Phone: evaluation note* Diagnosis contractions- Primary Unspecified abnormality of labor, antepartum documented in this encounter [employer] Phone: evaluation note* Diagnosis Light headedness Dizziness and giddiness POTS (postural orthostatic tachycardia syndrome) Tachycardia, unspecified Abnormal tilt table test Other nonspecific abnormal result of function study of brain and central nervous system documented in this encounter [employer] Phone: evaluation note* Diagnosis Light headedness Dizziness and giddiness POTS (postural orthostatic tachycardia syndrome) Tachycardia, unspecified Abnormal tilt table test Other nonspecific abnormal result of function study of brain and central nervous system 29 weeks gestation of state, incidental Chest pain, unspecified type documented in this encounter [employer] Phone: evaluation note* Diagnosis Encounter for supervision of normal first in second trimester Supervision of normal first documented in this encounter [employer] Phone: evalhavvmd note* Diagnosis 36 weeks gestation of state, incidental documented in this encounter [employer] Phone: evaluation note* Diagnosis Elevated blood pressure affecting , antepartum documented in this encounter [employer] Phone: evaluation note* Diagnosis Elevated blood pressure affecting , antepartum documented in this encounter [employer] Phone: evalulvrog note* Diagnosis (spontaneous vaginal delivery)- Primary Normal delivery Rupture of membranes with delay of delivery Term documented in this encounter [employer] Phone: Summary Purpose Family History No Family History Records Found Description Last Updated Maternal history of family history of is chemic heart disease 01/14/2020 Paternal history of family history of is chemic heart disease 01/14/2020 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s No Advanced Directives Records FoundDocuments on File Type Date Recorded 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 Documents on File Type Date Recorded 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 Latest Code Status on File Code Status Date Activated Date Inactivated Comments Full Code 08/02/2022 5:11 PM Latest Code Status on File Code Status Date Activated Date Inactivated Comments Full Code 08/02/2022 5:11 PM 08/02/2022 9:19 PM Latest Code Status on File Code Status Date Activated Date Inactivated Comments Full Code 08/02/2022 5:11 PM 08/02/2022 9:19 PM Latest Code Status on File Code Status Date Activated Date Inactivated Comments Full Code 09/24/2022 3:09 PM Full Code 08/02/2022 5:11 PM 08/02/2022 9:19 PM Reason for Referral Specialty Diagnoses / Procedures Referred By Contac t Referred To Contact Diagnoses Heart palpitations Procedures Holter Monitor 48 Hour Nick Brown APRN - [employer] [address] [place] [address] Referral ID Status Reason Start Date Expiration Date Visits Re quested Visits Authorized [id number] Closed 01/13/2022 01/13/2023 1 1 Specialty Diagnoses / Procedures Referred By Contac t Referred To Contact Cardiology Diagnoses Light headedness POTS (postural orthostatic tachycardia syndrome) Abnormal tilt table test Procedures Echo 2D w doppler w color complete Jade Soto MD [address] [place], [place] [id number] Referral ID Status Reason Start Date Expiration Date Visits Re quested Visits Authorized [id number] Closed 08/04/2022 08/10/2023 1 1 Specialty Diagnoses / Procedures Referred By Contac t Referred To Contact Diagnoses Light headedness POTS (postural orthostatic tachycardia syndrome) Abnormal tilt table test 29 weeks gestation of Chest pain, unspecified type Procedures Continuous cardiac monitoring, >2 up to 14 days Jade Soto MD [address] [place] [id number] Referral ID Status Reason Start Date Expiration Date Visits Re quested Visits Authorized [id number] Closed 07/27/2022 07/27/2023 1 1 Assessments Findings Encounter Date Body mass index Telemedicine with Radha Saleem PCAS 01/14/2020 Exposure to a viral disease Telemedicine with Rachel Cuevas [employer] 01/14/2020 Instructions Instructions not supported for this document type No Instructions Recorded Instructions not supported for this document type No Instructions Recorded History of Present Illness History of Present Illness not supported for this document type No History of Present Illness Recorded History of Present Illness not supported for this document type No History of Present Illness Recorded Review of System Review of Systems not supported for this document type No Review of Systems Recorded Review of Systems not supported for this document type No Review of Systems Recorded Physical Exam Physical Exam not supported for this document type No Physical Exam Recorded Physical Exam not supported for this document type No Physical Exam Recorded Additional Source Comments INFORMATION SOURCE (unrecogn ized section and content) DATE CREATED AUTHOR 01/05/2018 [facility] DATE CREATED AUTHOR AUTHOR'S ORGANIZ ATION 09/28/2022 [facility] DATE CREATED AUTHOR AUTHOR'S ORGANIZ ATION 07/07/2023 [facility] EPIC DATE CREATED AUTHOR AUTHOR'S ORGANIZ ATION 07/08/2023 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 Relationship Specialty Start Date End Date Nick Brown APRN - [employer] [address] [place] [address] PCP - General Certified Nurse 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 01/13/22 Structural Steel Worker Apprentice Relationship Specialty Start Date End Date Nick Brown APRN - [employer] [address] [place] [address] PCP - General Certified Nurse 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 01/13/22 Structural Steel Worker Apprentice Relationship Specialty Start Date End Date Nick Brown METAL TUBE CUTTER - [employer] [address] [place] [address] PCP - General Certified Nurse 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 01/13/22 Structural Steel Worker Apprentice Relationship Specialty Start Date End Date Nick Brown APRN - [employer] [address] [place] [address] PCP - General Certified Nurse 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 01/13/22 Structural Steel Worker Apprentice Relationship Specialty Start Date End Date Nick Brown METAL TUBE CUTTER - [employer] [address] [place] [address] PCP - General Certified Nurse 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 01/13/22 Structural Steel Worker Apprentice Relationship Specialty Start Date End Date Nick Brown APRN - [employer] [address] [place] [phone] PCP - General Certified Nurse 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 01/13/22 Structural Steel Worker Apprentice Relationship Specialty Start Date End Date Nick Brown APRN - [employer] [address] [place] [phone] PCP - General Certified Nurse 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 01/13/22 Structural Steel Worker Apprentice Relationship Specialty Start Date End Date Nick Brown APRN - [employer] [address] [place] [phone] PCP - General Certified Nurse 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 01/13/22 Structural Steel Worker Apprentice Relationship Specialty Start Date End Date Nick Brown APRN - [employer] [address] [place] [phone] PCP - General Certified Nurse 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 01/13/22 Structural Steel Worker Apprentice Relationship Specialty Start Date End Date Nick Brown APRN - [employer] [address] [place] [phone] PCP - General Certified Nurse 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 01/13/22 Reason for Visit (unrecogniz ed section and content) Specialty Diagnoses / Procedures Referred By Nii garrido Referred To Contact Diagnoses Heart palpitations Procedures Holter Monitor 48 Hour Nick Brown METAL TUBE CUTTER - [employer] [address] [place] [address] Referral ID Status Reason Start Date Expiration Date Visits Re quested Visits Authorized [id number] Closed 01/13/2022 01/13/2023 1 1 Reason Comments Contractions Specialty Diagnoses / Procedures Referred By Nii t Referred To Contact Cardiology Diagnoses Light headedness POTS (postural orthostatic tachycardia syndrome) Abnormal tilt table test Procedures Echo 2D w doppler w color complete Jade Soto MD [address] [place] [address] Referral ID Status Reason Start Date Expiration Date Visits Re quested Visits Authorized [id number] Closed 08/04/2022 08/10/2023 1 1 Specialty Diagnoses / Procedures Referred By Nii garrido Referred To Contact Diagnoses Light headedness POTS (postural orthostatic tachycardia syndrome) Abnormal tilt table test 29 weeks gestation of Chest pain, unspecified type Procedures Continuous cardiac monitoring, >2 up to 14 days Jade Soto MD [address] [place] [id number] Referral ID Status Reason Start Date Expiration Date Visits Re quested Visits Authorized [id number] Closed 07/27/2022 07/27/2023 1 1 Reason Comments Rupture of Membranes Patient states she believes her water broke at home approximately an hour ago. Ordered Prescriptions (unrec ognized section and content) Prescription Sig Dispensed Refills Start Date End Da te docusate sodium (COLACE, DULCOLAX) 100 MG CAPS Take 100 mg by mouth 2 times daily as needed for Constipation 60 capsule 0 09/26/2022 ibuprofen (ADVIL;MOTRIN) 800 MG tablet Take 1 tablet by mouth every 8 hours as needed for Pain 60 tablet 0 09/26/2022 Scheduled Active and Recently Administ ered Medications (unrecognized section and content) Medication Order 09/24/2022 09/25/2022 09/26/2022 acetaminophen (TYLENOL) tablet 1,000 mg 1,000 mg, Oral, EVERY 8 HOURS SCHEDULED (3 times per day), First dose on 09/25/22 at 1400, Until Discontinued, Maximum dose of acetaminophen is 4000mg from all sources in 24 hours. Alternate ibuprofen and acetaminophen every 4 hours., 1556 (Given - Provider: Marycruz Lloyd RN)2200 (Due) 0559 (Given - Provider: Blanca Retana RN)1400 (Due)2200 (Due) docusate sodium (COLACE) capsule 100 mg 100 mg, Oral, 2 TIMES DAILY, First dose on 09/25/22 at 1100, Until Discontinued, Do not crush or break., 1556 (Given - Provider: Marycruz Lloyd RN)2100 (Due) 0932 (Given - Provider: Kiran Gamino RN)2100 (Due) famotidine (PEPCID) tablet 20 mg 20 mg, Oral, 2 TIMES DAILY, First dose on 09/25/22 at 1100, Until Discontinued, Renal dose per pharmacy for peptic ulcer prophylaxis., 1556 (Given - Provider: Marycruz Lloyd RN)2100 (Due) 0900 (Due)2099 (Due) ferrous sulfate (IRON 325) tablet 325 mg 325 mg, Oral, 2 TIMES DAILY WITH MEALS, First dose on 09/25/22 at 1200, Until Discontinued, Start if Hgb less than 10., 1551 (Not Given - Provider: Marycruz Lloyd RN - Reason: Other - Comment: No full meal)1556 (Given - Provider: Marycruz Lloyd RN) 0800 (Due)1700 (Due) sodium chloride flush 0.9 % injection 5-40 mL 5-40 mL, IntraVENous, EVERY 12 HOURS SCHEDULED (2 times per day), First dose on 09/24/22 at 2100, Until Discontinued, For Line Patency: Peripheral IV = 5 mL; Midline or Central Line = 10 mL/lumen. If following IV push medication, administer flush at same rate as the IV push. Flush volume is determined by type of infusion therapy being given. For non-viscous solutions use: Peripheral IV = 5 mL Midline or Central Line = 10 mL/lumen For viscous solutions (i.e. blood components, parenteral nutrition, contrast media, or after obtaining blood sample) use: Peripheral IV = 10 mL Midline or Central Line = 20 mL/lumen, Labor and Delivery 2100 (Not Given - Provider: Toya David RN - Reason: IV Fluid Infusing) 0900 (Due)2099 (Due) 09 (Due)2099 (Due) sodium chloride flush 0.9 % injection 5-40 mL 5-40 mL, IntraVENous, EVERY 12 HOURS SCHEDULED (2 times per day), First dose on 09/25/22 at 1045, Until Discontinued, For Line Patency: Peripheral IV = 5 mL; Midline or Central Line = 10 mL/lumen. If following IV push medication, administer flush at same rate as the IV push. Flush volume is determined by type of infusion therapy being given. For non-viscous solutions use: Peripheral IV = 5 mL Midline or Central Line = 10 mL/lumen For viscous solutions (i.e. blood components, parenteral nutrition, contrast media, or after obtaining blood sample) use: Peripheral IV = 10 mL Midline or Central Line = 20 mL/lumen, 1045 (Due)2100 (Due) 0900 (Due)2100 (Due) pfrdvke-vkbcul-jvmko pertussis (BOOSTRIX) injection 0.5 mL 0.5 mL, IntraMUSCular, PRIOR TO DISCHARGE, 1 dose, Starting on 09/25/22 at 1023, Until Discontinued, If not previously administered during at 27-36 weeks as recommended by CDC., Continuous Medication Order 09/24/2022 09/25/2022 09/26/2022 lactated ringers IV soln infusion (CANCELED) IntraVENous, at 125 mL/hr, CONTINUOUS, Starting on 09/24/22 at 1830, Labor and Delivery 1837 (New Bag - Provider: Tammie Lane RN)183 (Rate/Dose Verify - Provider: Toya David RN)184 (Rate/Dose Change - Provider: Toya David RN)184 (Rate/Dose Verify - Provider: Patti Patterson RN - Comment: [Action automatically changed])191 (Rate/Dose Change - Provider: Toya David RN)1917 (Rate/Dose Change - Provider: Toya David RN)1928 (Rate/Dose Change - Provider: Toya David RN)1955 (Rate/Dose Change - Provider: Toya David RN)1955 (Paused - Provider: Toya David RN)1956 (Rate/Dose Change - Provider: Toya David RN)2008 (Rate/Dose Change - Provider: Toya David RN)2010 (Rate/Dose Change - Provider: Toya David RN)2243 (Rate/Dose Verify - Provider: Toya David RN)233 (Rate/Dose Verify - Provider: Toya David RN)2332 (New Bag - Provider: Toya David RN) 0431 (Rate/Dose Verify - Provider: Toya David RN)0550 (Rate/Dose Verify - Provider: Yarelis Rosario RN)0825 (New Bag - Provider: Marycruz Lloyd RN) lactated ringers IV soln infusion IntraVENous, at 125 mL/hr, CONTINUOUS, Starting on 09/25/22 at 1045, 1200 (Stopped - Provider: Marycruz Lloyd, ARMANI) oxytocin (PITOCIN) 30 units in 500 mL infusion 1-24 neyda-units/min (1-24 mL/hr), IntraVENous, CONTINUOUS, Starting on 09/25/22 at 0100, Until Discontinued, Begin infusion at 1 neyda-unit/min (1 neyda-unit per min = 1 mL per hour) and increase by 1 neyda-unit/min after 30 minutes. Then increase by 2 neyda-units/min as needed, no faster than every 30 minutes, until labor is achieved. Labor is defined as contractions every 2-3 minutes with cervical changes or [place] units (MVU) greater than 200 in a 10-minute window. Maximum infusion rate: 20 neyda-unit/min. Contact provider if maximum rate does not achieve desired response. Provider may order alternative titration goal or other clinically appropriate goal of titration rate (s). Smaller titration increments of 1 neyda-units/min, not faster than every 30 minutes, may be used when approaching therapeutic goal. 0100 (New Bag - Provider: Yarelis Rosario RN)0130 (Rate/Dose Change - Provider: Toya David RN)0300 (Rate/Dose Change - Provider: Toya David RN)0330 (Rate/Dose Change - Provider: Toya David RN)0402 (Rate/Dose Change - Provider: Toya David RN)0431 (Rate/Dose Verify - Provider: Toya David RN)0434 (Rate/Dose Change - Provider: Toya David RN)0506 (Rate/Dose Verify - Provider: Toya David RN)0515 (Rate/Dose Change - Provider: Yarelis Rosario RN)0545 (Rate/Dose Change - Provider: Yarelis Rosario RN)0550 (Rate/Dose Verify - Provider: Yarelis Rosario RN)0615 (Rate/Dose Change - Provider: Yarelis Rosario RN)0625 (Rate/Dose Verify - Provider: Yarelis Rosario RN) ropivacaine (NAROPIN) 0.2% injection 0.2% 8 mL/hr, Epidural, CONTINUOUS, Starting on 09/24/22 at 2130, Until Discontinued, Until delivery 0647 (New Bag - Provider: Toya David RN) PRN Medication Order 09/24/2022 09/25/2022 09/26/2022 0.9 % sodium chloride infusion 25 mL, IntraVENous, at 100 mL/hr, PRN, If patient receiving piggyback infusions without ordered maintenance IV fluids or with frequent/long duration piggyback infusions, Starting on 09/24/22 at 1811, Administer at the same rate as the piggyback being infused., Labor and Delivery 0.9 % sodium chloride infusion IntraVENous, at 5-250 mL/hr, PRN, if patient receiving piggyback infusions and maintenance fluids are not ordered OR KVO fluids to protect IV site / prevent frequent line interruptions/ long duration, Starting on 09/25/22 at 1023, For piggyback infusion, administer at same rate as piggyback for a total of 25 mL. Enter 25 mL into dose field and piggyback rate into rate field of order. If piggyback is infusing at a rate less than 100 mL/hr, enter 25 mL into dose field and 100 mL/hr into rate field of order. For KVO fluids, enter rate of 20 mL/hr or less into rate field of order., acetaminophen (TYLENOL) tablet 650 mg 650 mg, Oral, EVERY 4 HOURS PRN, Starting on 09/24/22 at 1811, Until Discontinued, Pain Mild (1-3), Fever, Fever >100.5 F (38 C), Maximum dose of acetaminophen is 4000 mg from all sources in 24 hours., Labor and Delivery 0055 (Given - Provider: Yarelis Rosario RN - Comment: fever) benzocaine-menthol (DERMOPLAST) 20-0.5 % spray Topical, PRN, Pain, Starting on 09/24/22 at 1811, Apply to perineal area., Labor and Delivery benzocaine-menthol (DERMOPLAST) 20-0.5 % spray Topical, PRN, Pain, Starting on 09/25/22 at 1023, Apply to perineal area. Patient is capable and may self administer at bedside., 1211 (Given - Provider: Marycruz Lloyd RN - Comment: perineum) butorphanol (STADOL) injection 1 mg 1 mg, IntraVENous, EVERY 3 HOURS PRN, 2 doses, Starting on 09/24/22 at 1811, Until Discontinued, Pain, For moderate pain level 4-6, May repeat times 1 for a total of 2 mg while in labor., Labor and Delivery carboprost (HEMABATE) injection 250 mcg 250 mcg, IntraMUSCular, PRN, Starting on 09/24/22 at 1811, Until Discontinued, PP bleeding, May repeat every 15 minutes up to a cumulative maximum dose of 1000 mcg, at physician's request., Labor and Delivery ePHEDrine (EMERPHED) 5 MG/ML injection 5 mg 5 mg, IntraVENous, EVERY 5 MIN PRN, 3 doses, Starting on 09/24/22 at 2100, Until Discontinued, hypotension please call anesthesia prior to dosing ibuprofen (ADVIL;MOTRIN) tablet 800 mg 800 mg, Oral, EVERY 8 HOURS PRN, Starting on 09/25/22 at 2228, Until Discontinued, Pain Mild (1-3), Pain Moderate (4-6), Do not crush or chew. 2252 (Given - Provider: Dang Bruno, ARMANI) 0932 (Given - Provider: Kiran Gamino, ARMANI) lactated ringers bolus(Linked Group 1) 500 mL, IntraVENous, at 967.7 mL/hr, Administer over 31 Minutes, PRN, Intrauterine resuscitation for hypertonus, tachysystole, non-reassuring status, or as prescribed by the physician. Every hour as needed, nurse may repeat bolus., Starting on 09/24/22 at 1811, Labor and Delivery lactated ringers bolus(Linked Group 1) 1,000 mL, IntraVENous, at 1,935.5 mL/hr, Administer over 31 Minutes, PRN, Give prior to epidural placement. May be repeated if a second epidural/spinal procedure is performed., Starting on 09/24/22 at 1811, Labor and Delivery lansinoh lanolin ointment Topical, PRN, Dry Skin, nipple discomfort, Starting on 09/25/22 at 1023, methylergonovine (METHERGINE) injection 200 mcg 200 mcg, IntraMUSCular, PRN, Starting on 09/24/22 at 1811, Until Discontinued, Bleeding, Prevention of post- hemorrhage, if not hypertensive., Labor and Delivery miSOPROStol (CYTOTEC) tablet 900 mcg 900 mcg, Rectal, PRN, Starting on 09/24/22 at 1811, Until Discontinued, Post Hemmorrhage, Post Delivery nalbuphine (NUBAIN) injection 10 mg 10 mg, IntraVENous, EVERY 2 HOURS PRN, Starting on 09/24/22 at 1811, Until Discontinued, Pain Moderate (4-6), Pain Severe (7-10), For pain, PRN for pain, Labor and Delivery naloxone 0.4 mg in 10 mL sodium chloride syringe IntraVENous, PRN, Opioid Reversal, PRN if respiratory rate is less than 6 breaths per minute and patient is difficult to arouse., Starting on 09/24/22 at 2058, Notify provider STAT. Mix 9 mL of sodium chloride 0.9% with 0.4 mg (1 mL) of naloxone (NARCAN) in 10 mL syringe. (Note: dilution is 0.04 mg/mL) Give 0.08 mg (2 mL of special dilution), slow IV push, repeat up to 0.4 mg (10 mL) or until patient is responsive to physical stimulation and respiratory rate is equal to or greater than 6 breaths/min. Continue to observe, if no response within 3 minutes of administration of 0.4 mg (10 mL) total, repeat dose (0.4 mg as administered previously). Concentration 0.04 mg/mL nitrous oxide 50% inhalation 1 each 1 each, Inhalation, CONTINUOUS PRN, Pain, Starting on 09/24/22 at 181, Nitrous oxide inhalation is to be a patient administered product. When documenting initiation of therapy on the SEP, choose 'Provided to Patient' for the drop down action. May be given in addition to other non-opioid pain medications. Please follow established policies and procedures. , Labor and Delivery ondansetron (ZOFRAN) injection 4 mg 4 mg, IntraVENous, EVERY 6 HOURS PRN, Starting on 09/24/22 at 1703, Until Discontinued, Nausea, Vomiting ondansetron (ZOFRAN) injection 4 mg 4 mg, IntraVENous, EVERY 6 HOURS PRN, Starting on 09/24/22 at 1811, Until Discontinued, Nausea, Labor and Delivery 2151 (Given - Provider: Yarelis Rosario RN) ondansetron (ZOFRAN-ODT) disintegrating tablet 8 mg 8 mg, Oral, EVERY 8 HOURS PRN, Starting on 09/25/22 at 1023, Until Discontinued, Nausea, oxyCODONE (ROXICODONE) immediate release tablet 5 mg 5 mg, Oral, EVERY 4 HOURS PRN, Starting on 09/25/22 at 1023, Until Discontinued, Pain Moderate (4-6), oxytocin (PITOCIN) 10 unit bolus from the bag(Linked Group 2) 999 mL/hr, IntraVENous, PRN, 1 dose, Starting on 09/24/22 at 1811, Until Discontinued, Bleeding, For Post Use Only. Give after delivery of placenta. On provider order Bolus for bag to infuse at 999 ml/hour for 20 minutes ., Post Delivery oxytocin (PITOCIN) 30 units in 500 mL infusion(Linked Group 2) 166 neyda-units/min (166 mL/hr), IntraVENous, PRN, 1 dose, Starting on 09/24/22 at 1811, Until Discontinued, Bleeding, For Post Use Only. Give after delivery of placenta. Following Bolus from bag administration, reduce the rate to166 mL/hr and administer remaining bag, Post Delivery sodium chloride flush 0.9 % injection 5-40 mL 5-40 mL, IntraVENous, PRN, Starting on 09/24/22 at 1811, Until Discontinued, Line Care, For Line Patency: Peripheral IV = 5 mL; Midline or Central Line = 10 mL/lumen. If following IV push medication, administer flush at same rate as the IV push. Flush volume is determined by type of infusion therapy being given. For non-viscous solutions use: Peripheral IV = 5 mL Midline or Central Line = 10 mL/lumen For viscous solutions (i.e. blood components, parenteral nutrition, contrast media, or after obtaining blood sample) use: Peripheral IV = 10 mL Midline or Central Line = 20 mL/lumen, Labor and Delivery sodium chloride flush 0.9 % injection 5-40 mL 5-40 mL, IntraVENous, PRN, Starting on 09/25/22 at 1023, Until Discontinued, Line Care, After every IV line use, For Line Patency: Peripheral IV = 5 mL; Midline or Central Line = 10 mL/lumen. If following IV push medication, administer flush at same rate as the IV push. Flush volume is determined by type of infusion therapy being given. For non-viscous solutions use: Peripheral IV = 5 mL Midline or Central Line = 10 mL/lumen For viscous solutions (i.e. blood components, parenteral nutrition, contrast media, or after obtaining blood sample) use: Peripheral IV = 10 mL Midline or Central Line = 20 mL/lumen, tranexamic acid-NaCl IVPB premix 1,000 mg (COMPLETED) 1,000 mg, IntraVENous, at 600 mL/hr, Administer over 10 Minutes, ONCE PRN, Post Hemorrhage, Starting on 09/24/22 at 1811, For 1 dose, If bleeding continues, give one more gram within 3 hours of ., Labor and Delivery 0921 (New Bag - Provider: Marycruz Lloyd, RN)0931 (Due: Stopped - Provider: Marycruz Lloyd, ARMANI) tranexamic acid-NaCl IVPB premix 1,000 mg 1,000 mg, IntraVENous, at 600 mL/hr, Administer over 10 Minutes, ONCE PRN, Post Hemorrhage, Starting on 09/25/22 at 1023, For 1 dose, If bleeding continues, give one more gram within 3 hours of ., witch mt-glycerin (TUCKS) pad Topical, PRN, Hemorrhoids, For perineal pain or discomfort, Starting on 09/24/22 at 1811, Apply to perineal area. Patient is capable and may self administer at bedside., Post Delivery 1212 (Given - Provider: Marycruz Lloyd, ARMANI) Linked Groups Order Group 1: lactated ringers bolusJump to med 500 mL, IntraVENous, at 967.7 mL/hr, Administer over 31 Minutes, PRN, Intrauterine resuscitation for hypertonus, tachysystole, non-reassuring status, or as prescribed by the physician. Every hour as needed, nurse may repeat bolus., Starting on 09/24/22 at 1811, Labor and Delivery Or lactated ringers bolusJump to med 1,000 mL, IntraVENous, at 1,935.5 mL/hr, Administer over 31 Minutes, PRN, Give prior to epidural placement. May be repeated if a second epidural/spinal procedure is performed., Starting on 09/24/22 at 1811, Labor and Delivery Group 2: oxytocin (PITOCIN) 30 units in 500 mL infusionJump to med 166 neyda-units/min (166 mL/hr), IntraVENous, PRN, 1 dose, Starting on 09/24/22 at 1811, Until Discontinued, Bleeding
For Post Use Only. Give after delivery of placenta. Following Bolus from bag administration, reduce the rate to166 mL/hr and administer remaining bag
Post Delivery And oxytocin (PITOCIN) 10 unit bolus from the bagJump to med 999 mL/hr, IntraVENous, PRN, 1 dose, Starting on 09/24/22 at 1811, Until Discontinued, Bleeding
For Post Use Only. Give after delivery of placenta. On provider order Bolus for bag to infuse at 999 ml/hour for 20 minutes .
Post Delivery FOR RECORDS PERTAINING TO PATIENTS WHO ARE OR HAVE BEEN ENROLLED IN A CHEMICAL DEPENDENCY/SUBSTANCEABUSE PROGRAM, SOME INFORMATION MAY BE OMITTED. This clinical summary was aggregated from multiple sources. Caution should be exercised in using it in the provision of clinical care. This summary normalizes information from multiple sources, and as a consequence, information in this document may materially change the coding, format and clinical context of patient data. In addition, data may be omitted in some cases. CLINICAL DECISIONS SHOULD BE BASED ON THE PRIMARY CLINICAL RECORDS. [employer] provides no warranty or guarantee of the accuracy or completeness of information in this document.
[2023-07-21 16:12] LABS: Basophils Absolute Auto 0.1 10^3/uL (0.0-0.1); Basophils Percent Auto 0.5 % (0.2-2.0); Eosinophils Absolute Auto 0.1 10^3/uL (0.0-0.7); Eosinophils Percent Auto 0.8 % (0.9-7.0); Hematocrit 35.8 % (36.0-48.0); Hemoglobin 11.9 g/dL (12.0-16.0); Immature Granulocytes Abs Auto 0.05 10^3/uL (0.00-0.03); Immature Granulocytes Pct Auto 0.5 % (0.0-0.5); Lymphocytes Absolute Auto 2.8 10^3/uL (1.2-3.8); Lymphocytes Percent Auto 25.6 % (20.5-60.0); Mean Corpuscular HGB Conc 33.2 g/dL (29.9-35.2); Mean Corpuscular Hemoglobin 27.4 pg (26.7-34.0); Mean Corpuscular Volume 82.5 fL (81.0-99.0); Monocytes Absolute Auto 0.6 10^3/uL (0.3-0.8); Monocytes Percent Auto 5.8 % (1.7-12.0); Neutrophils Absolute Auto 7.3 10^3/uL (1.4-6.5); Neutrophils Percent Auto 66.8 % (43.0-75.0); Platelet Count 289 10^3/uL (150-450); Red Blood Count 4.34 10^6/uL (4.20-5.40); Red Cell Distribution Width 13.2 % (11.0-15.0); White Blood Count 10.8 10^3/uL (4.0-11.0)
[2023-07-21 16:22] LABS: Estimated Average Glucose 103 mg/dL; Glycohemoglobin A1C 5.2 % (4.5-6.2)
[2023-07-21 16:39] LABS: Thyroid Stimulating Hormone 1.878 uIU/mL (0.358-3.740)
[2023-07-23 09:08] LABS: HBsAg Screen Negative (Negative); HCV Ab Non Reactive (Non Reactive); HIV Ab/p24 Ag Screen Non Reactive (Non Reactive)
[2023-07-23 12:08] LABS: Rapid Plasma Reagin, Quant Non Reactive titer (NonRea<1:1)
== END 2023-07-21 15:16 | disposition home or self-care (01) ==
LOC: LAB 15:17
PROVIDERS: Visit Provider Obstetrics & Gynecology
DX: N92.6 Irregular menstruation, unspecified (principal); Z36.0 Encounter for antenatal screening for chromosomal anomalies
CPT/HCPCS: 36415; 83036; 84443; 85025; 86592; 86762; 86803; 86850; 86900; 86901; 87086; 87340; 87389

== ENCOUNTER 2023-08-09 20:02 | Outpatient (REF) | payer OTHER, BC, SELFPAY ==
--- OUTSIDE RECORDS SUMMARY | 2023-08-09 20:07 | XMS_ITS | CCD ---
Author Name Unknown Address [address] [place] [address] Organization [facility] Care Team Providers Care Assistant Service Manager Name Role Phone ROJAS, WICHO S Unavailable Unavailable ROJAS, WICHO S Unavailable Unavailable ROJAS, WICHO S Unavailable Unavailable ROJAS, WICHO S Unavailable Unavailable ROJAS, WICHO S Unavailable Unavailable ROJAS, WICHO S Unavailable Unavailable Radha Cuevas Primary Care Provider Catarino [place], Cari Smith Primary Care Provider Unav ailable Stephanie JERSEY KNITTER - VOLUNTEER SERVICES COORDINATOR, Nick Stein Primary Care Provid er Stephanie JERSEY KNITTER - VOLUNTEER SERVICES COORDINATOR, Nick Stein Primary Care Provid er Stephanie JERSEY KNITTER - VOLUNTEER SERVICES COORDINATOR, Nick Stein Primary Care Provid er NICK BROWN Primary Care Unavailable ZAK BEJARANO Admitting Unavailable ZAK BEJARANO Attending Unavailable STEPHANIE, NICK Stein Primary Care Unavailable PETE SOL Attending Unavailabl e PETE OSL Admitting Unavailabl e STEPHANIENICK SAHU Primary Care [...] Episodic Unclassified (1 source) Hip Pain / [id number]() Onset: 10-12-2017 Past or Other Problems Problem [...] SURGICAL PATHOLOGY CONSULTATION Patient Name: FABIEN PERAZA [facility] Rec: [id number] Path Number: [id number] [facility] ANATOMIC PATHOLOG[facility] [address] [place] [phone] [facility] Comment on above: Performed By: #### U CGP #### [employer] [facility] [employer] [address] [place] [address] Information Technology Analyst: Diego Bashir MD Type + Screenon 09-25-2022 Type + Screen Sample Expiration 09/27/2022,2359 Arm Band Number [id number] ABO/Rh(D) A POSITIVE Antibody Screen NEGATIVE [facility] Comment on above: Performed By: #### U CGP #### [employer] [address] [place] [address] Information Technology Analyst: Diego Bashir MD CBC with Auto Differentialon 09-24-2022 Absolute Eos # 0.08 [facility] [employer] Absolute Immature Granulocyte 0.11 [facility] Absolute Lymph # 2.52 [facility] Absolute [place] # 0.80 [facility] Basophils (Bld) [#/Vol] 0.05 10*3/uL [facility] Basophils/100 WBC (Bld) 1 % 0 - 2 % [facility] Eosinophils/100 WBC (Bld) 1 % 1 - 4 % [facility] Hematocrit (Bld) [Volume fraction] 31.9 % Low 36.3 - 47.1 % [facility] Hemoglobin (Bld) [Mass/Vol] 10.5 g/dL Low 11.9 - 15.1 g/dL [facility] Immature granulocytes/100 WBC (Bld) 1 % High 0 [facility] Interpretation and review of laboratory results Abnormal [facility] Lymphocytes/100 WBC (Bld) 25 % 24 - 43 % [facility] MCH (RBC) [Entitic mass] 25.1 pg Low 25.2 - 33.5 pg [facility] MCHC (RBC) [Mass/Vol] 32.9 g/dL 28.4 - 34.8 g/dL [facility] MCV (RBC) [Entitic vol] 76.3 fL Low 82.6 - 102.9 fL [facility] Monocytes/100 WBC (Bld) 8 % 3 - 12 % [facility] NRBC Automated 0.0 0.0 per 100 WBC [facility] Platelet distribution width (Bld) [Ratio] 14.7 % High 11.8 - 14.4 % [facility] Platelet mean volume (Bld) [Entitic vol] 8.7 fL 8.1 - 13.5 fL [facility] Platelets (Bld) [#/Vol] 298 10*3/uL [facility] RBC (Bld) [#/Vol] 4.18 10*6/uL 3.95 - 5.11 m/uL [facility] Segmented neutrophils/100 WBC (Bld) 64 % 36 - 65 % [facility] Segs Absolute 6.71 [facility] WBC (Bld) [#/Vol] 10.3 10*3/uL [facility] CBC with Diffon 09-24-2022 Abs. Basophil 0.05 k/uL Normal 0.00-0.20 [facility] Comment on above: Performed By: #### U CGP #### [facility] [employer]asiest Credit Card To Get Approved For [address] [place], [place] [id number] Information Technology Analyst: Diego Bashir MD Abs.Imm.Granulocyte 0.11 k/uL Normal 0.00-0.30 [facility] Comment on above: Performed By: #### U CGP #### [address] [address] Information Technology Analyst: Diego Bashir MD Abs.Neutrophil (Seg) 6.71 k/uL Normal 1.50-8.[address] [facility] Comment on above: Performed By: #### U CGP #### [address] [address] Information Technology Analyst: Diego Bashir MD Basophils/100 WBC (Bld) 1 % Normal 0-2 [facility] Comment on above: Performed By: #### U CGP #### [address] [address] Information Technology Analyst: Diego Bashir MD Eosinophils (Bld) [#/Vol] 0.08 10*3/uL Normal 0.00-0.44 [facility] Comment on above: Performed By: #### U CGP #### [address] [address] Information Technology Analyst: Diego Bashir MD Eosinophils/100 WBC (Bld) 1 % Normal 1-4 [facility] Comment on above: Performed By: #### U CGP #### [address] [address] Information Technology Analyst: Diego Bashir MD Erythrocyte distribution width (RBC) [Ratio] 14.7 % High 11.8-14.4 [facility] Comment on above: Performed By: #### U CGP #### [address] [address] Information Technology Analyst: Diego Bashir MD Hematocrit (Bld) [Volume fraction] 31.9 % Low 36.3-47.1 [facility] Comment on above: Performed By: #### U CGP #### [address] [address] Information Technology Analyst: Diego Bashir MD Hemoglobin (Bld) [Mass/Vol] 10.5 g/dL Low 11.9-15.1 [facility] Comment on above: Performed By: #### U CGP #### [address] [address] Information Technology Analyst: Diego Bashir MD Immature granulocytes/100 WBC (Bld) 1 % High 0 [facility] Comment on above: Performed By: #### U CGP #### [address] [address] Information Technology Analyst: Diego Bashir MD Lymphocytes (Bld) [#/Vol] 2.52 10*3/uL Normal 1.10-3.70 [facility] Comment on above: Performed By: #### U CGP #### [address] [address] Information Technology Analyst: Diego Bashir MD Lymphocytes/100 WBC (Bld) 25 % Normal 24-43 [facility] Comment on above: Performed By: #### U CGP #### [address] [address] Information Technology Analyst: Diego Bashir MD MCH (RBC) [Entitic mass] 25.1 pg Low 25.2-33.5 [facility] Comment on above: Performed By: #### U CGP #### [address] [address] Information Technology Analyst: Diego Bashir MD MCHC (RBC) [Mass/Vol] 32.9 g/dL Normal 28.4-34.8 [facility] Comment on above: Performed By: #### U CGP #### [address] [address] Information Technology Analyst: Diego Bashir MD MCV (RBC) [Entitic vol] 76.3 fL Low 82.6-102.9 [facility] Comment on above: Performed By: #### U CGP #### [address] [address] Information Technology Analyst: Diego Bashir MD Monocytes (Bld) [#/Vol] 0.80 10*3/uL Normal 0.10-1.20 [facility] Comment on above: Performed By: #### U CGP #### [address] [address] Information Technology Analyst: Diego Bashir MD Monocytes/100 WBC (Bld) 8 % Normal 3-12 [facility] Comment on above: Performed By: #### U CGP #### [address] [address] Information Technology Analyst: Diego Bashir MD Neutrophil (Seg) 64 % Normal 36-65 [facility] Comment on above: Performed By: #### U CGP #### [address] [address] Information Technology Analyst: Diego Bashir MD NRBC Automated 0.0 per 100 WBC Normal 0.0 [facility] Comment on above: Performed By: #### U CGP #### [address] [address] Information Technology Analyst: Diego Bashir MD Platelet mean volume (Bld) [Entitic vol] 8.7 fL Normal 8.1-13.5 [facility] Comment on above: Performed By: #### U CGP #### [address] [address] Information Technology Analyst: Diego Bashir MD Platelets (Bld) [#/Vol] 298 10*3/uL Normal 138-453 [facility] Comment on above: Performed By: #### U CGP #### [address] [address] Information Technology Analyst: Diego Bashir MD RBC (Bld) [#/Vol] 4.18 10*6/uL Normal 3.95-5.11 [facility] Comment on above: Performed By: #### U CGP #### [facility] [address] [place] [address] Information Technology Analyst: Diego Bashir MD WBC (Bld) [#/Vol] 10.3 10*3/uL Normal 3.5-11.3 [facility] Comment on above: Performed By: #### U CGP #### [address] [address] Information Technology Analyst: Diego Bashir MD Comp Metabolic Profon 2022 Albumin [Mass/Vol] 3.5 g/dL Normal 3.5-5.2 [facility] Comment on above: Performed By: #### U CGP #### [address] [address] Information Technology Analyst: Diego Bashir MD Albumin/Glob Ratio 1.1 Normal 1.0-2.5 [facility] Comment on above: Performed By: #### U CGP #### [address] [address] Information Technology Analyst: Diego Bashir MD Alkaline Phos 140 U/L High 35-104 [facility] Comment on above: Performed By: #### U CGP #### [address] [address] Information Technology Analyst: Diego Bashir MD ALT [Catalytic activity/Vol] 8 U/L Normal 5-33 [facility] Comment on above: Performed By: #### U CGP #### [address] [address] Information Technology Analyst: Diego Bashir MD Anion gap [Moles/Vol] 15 mmol/L Normal 9-17 [facility] Comment on above: Performed By: #### U CGP #### [address] [address] Information Technology Analyst: Diego Bashir MD AST [Catalytic activity/Vol] 14 U/L Normal <32 [facility] Comment on above: Performed By: #### U CGP #### [place] [place] [address] Information Technology Analyst: Diego Bashir MD Bilirubin [Mass/Vol] 0.3 mg/dL Normal 0.3-1.[address] [facility] Comment on above: Performed By: #### U CGP #### [address] [address] Information Technology Analyst: Diego Bashir MD BUN/CRE Ratio 7 Low 9-20 [facility] Comment on above: Performed By: #### U CGP #### [address] [address] Information Technology Analyst: Diego Bashir MD Calcium [Mass/Vol] 8.9 mg/dL Normal 8.6-10.4 [facility] Comment on above: Performed By: #### U CGP #### [address] [address] Information Technology Analyst: Diego Bashir MD Chloride [Moles/Vol] 103 mmol/L Normal 98-[address] [facility] Comment on above: Performed By: #### U CGP #### [address] [address] Information Technology Analyst: Diego Bashir MD CO2 [Moles/Vol] 18 mmol/L Low 20-31 [place] Comment on above: Performed By: #### U CGP #### [address] [address] Information Technology Analyst: Diego Bashir MD Creatinine [Mass/Vol] 0.42 mg/dL Low 0.50-0.90 [facility] Comment on above: Performed By: #### U CGP #### [address] [address] Information Technology Analyst: Diego Bashir MD GFR/1.73 sq M.predicted among non-blacks MDRD (S/P/Bld) [Vol rate/Area] mL/min/{1.73_m2} Normal >60 [facility] Comment on above: Result Comment: These results [...] secretion. Performed By: #### U CGP #### [employer] [facility] [place] [address] Information Technology Analyst: Diego Bashir MD Glucose [Mass/Vol] 76 mg/dL Normal 70-99 [facility] Comment on above: Performed By: #### U CGP #### [employer] [address] [place] [address] Information Technology Analyst: Diego Bashir MD Potassium [Moles/Vol] 3.6 mmol/L Low 3.7-5.3 [facility] Comment on above: Performed By: #### U CGP #### [employer] [facility] [place] [address] Information Technology Analyst: Diego Bashir MD Protein [Mass/Vol] 6.6 g/dL Normal 6.4-8.3 [facility] Comment on above: Performed By: #### U CGP #### [employer] [address] [place] [address] Information Technology Analyst: Diego Bashir MD Sodium [Moles/Vol] 136 mmol/L Normal 135-144 [facility] Comment on above: Performed By: #### U CGP #### [employer] [facility] [place] [address] Information Technology Analyst: Diego Bashir MD Urea nitrogen [Mass/Vol] 3 mg/dL Low 6-20 [facility] Comment on above: Performed By: #### U CGP #### [employer] [address] [place] [address] Information Technology Analyst: Diego Bashir MD [facility] Metabolic Pane [facility] 09-24-2022 Albumin [Mass/Vol] 3.5 g/dL 3.5 - 5.2 g/dL [facility] Albumin/Globulin [Mass ratio] 1.1 {ratio} 1.0 - 2.5 [facility] ALP [Catalytic activity/Vol] 140 U/L High 35 - 104 U/L [facility] ALT [Catalytic activity/Vol] 8 U/L 5 - 33 U/L [facility] Anion gap [Moles/Vol] 15 mmol/L 9 - 17 mmol/L [facility] AST [Catalytic activity/Vol] 14 U/L NINF - 32 U/L [facility] Bilirubin [Mass/Vol] 0.3 mg/dL 0.3 - 1.2 mg/dL [facility] Calcium [Mass/Vol] 8.9 mg/dL 8.6 - 10.4 mg/dL [facility] Chloride [Moles/Vol] 103 mmol/L 98 - 107 mmol/L [facility] CO2 [Moles/Vol] 18 mmol/L Low 20 - 31 mmol/L [facility] Creatinine [Mass/Vol] 0.42 mg/dL Low 0.50 - 0.90 mg/dL [facility] GFR/1.73 sq M.predicted MDRD (S/P/Bld) [Vol rate/Area] - PINF [facility] Comment on above: These results are not [...] [Mass/Vol] 76 mg/dL 70 - 99 mg/dL [facility] Interpretation and review of laboratory results Abnormal [facility] Potassium [Moles/Vol] 3.6 mmol/L Low 3.7 - 5.3 mmol/L [facility] Protein [Mass/Vol] 6.6 g/dL 6.4 - 8.3 g/dL [facility] Sodium [Moles/Vol] 136 mmol/L 135 - 144 mmol/L [facility] Urea nitrogen [Mass/Vol] 3 mg/dL Low 6 - 20 mg/dL [facility] Urea nitrogen/Creatinine (Bld) [Mass ratio] 7 Low 9 - 20 [facility] DRUG SCREEN MULTI URINEon Amphetamine Screen, Ur Negative NEGATIVE [facility] Comment on above: (Positive cutoff 1000 ng/mL) Barbiturate Screen, Ur Negative NEGATIVE [facility] Comment on above: (Positive cutoff 200 ng/mL) Benzodiazepine Screen, Urine Negative NEGATIVE [facility] Comment on above: (Positive cutoff 200 ng/mL) Buprenorphine Urine Negative NEGATIVE [facility] Comment on above: (Positive cutoff 5 ng/ml) Cannabinoid Scrn, Ur Negative NEGATIVE [facility] Comment on above: (Positive cutoff 50 ng/mL) Cocaine Metabolite, Urine Negative NEGATIVE [facility] Comment on above: (Positive cutoff 300 ng/mL) Fentanyl, Ur Negative NEGATIVE [facility] Comment on above: (Positive cutoff 5 ng/ml) Methadone Screen, Urine Negative NEGATIVE [facility] Comment on above: (Positive cutoff 300 ng/mL) Opiates, Urine Negative NEGATIVE [facility] Comment on above: (Positive cutoff 300 ng/mL) Oxycodone Screen, Ur Negative NEGATIVE [facility] Comment on above: (Positive cutoff 100 ng/mL) Phencyclidine, Urine Negative NEGATIVE [facility] Comment on above: (Positive cutoff 25 ng/mL) [facility] Drug Scr, Abuse, Uron 2022 Amphetamine(s),Ur Negative Normal NEG [facility] Comment on above: Result Comment: (Positive cutoff 1000 ng/mL) Performed By: #### D AU #### [facility] [address] [place] [address] Information Technology Analyst: Artem Jones MD Barbiturate(s),Ur Negative Normal NEG [facility] Comment on above: Result Comment: (Positive cutoff 200 ng/mL) Performed By: #### D AU #### [address] [place], [place] [id number] Information Technology Analyst: Artem Jones MD Benzodiazepine(s) Negative Normal NEG [facility] Comment on above: Result Comment: (Positive cutoff 200 ng/mL) Performed By: #### D AU #### [address] [place], [place] [phone] Information Technology Analyst: Artem Jones MD Buprenorphrine, Ur Negative Normal NEG [facility] Comment on above: Result Comment: (Positive cutoff 5 ng/ml) Performed By: #### D AU #### [address] [place], [place] [id number] Information Technology Analyst: Artem Jones MD Cannabinoid(s),Ur Negative Normal [facility] Comment on above: Result Comment: (Positive cutoff 50 ng/mL) Performed By: #### D AU #### [address] [place] [address] Information Technology Analyst: Artem Jonse MD Cocaine Metabolite Negative [facility] Comment on above: Result Comment: (Positive cutoff 300 ng/mL) Performed By: #### D AU #### [address] [place] [address] Information Technology Analyst: Artem Jones MD Fentanyl, Urine Negative Normal [facility] Comment on above: Result Comment: (Positive cutoff 5 ng/ml) Performed By: #### D AU #### [address] [place], [place] [phone] Information Technology Analyst: Artem Jones MD Methadone Ql (U) Negative Normal NEG [facility] Comment on above: Result Comment: (Positive cutoff 300 ng/mL) Performed By: #### D AU #### [address] [place], [place] [phone] Information Technology Analyst: Artem Jones MD Opiate(s), Ur Negative Normal NEG [facility] Comment on above: Result Comment: (Positive cutoff 300 ng/mL) Performed By: #### D AU #### [address] [place], [place] [phone] Information Technology Analyst: Artem Jones MD Oxycodone, Urine Negative Normal NEG [facility] Comment on above: Result Comment: (Positive cutoff 100 ng/mL) Performed By: #### D AU #### [address] [place], [place] [phone] Information Technology Analyst: Artem Jones MD Phencyclidine, Ur Negative Normal NEG [facility] Comment on above: Result Comment: (Positive cutoff 25 ng/mL) Performed By: #### D AU #### [address] [place], [place] [id number] Information Technology Analyst: Artem Jones MD Lactate Dehydrogenaseon 09-14 LDH [Catalytic activity/Vol] 158 U/L Normal 135-214 [facility] Comment on above: Performed By: #### U CGP #### [facility] [address] [place] [address] Information Technology Analyst: Diego Bashir MD Cholesterol in LDL [Mass/Vol] 158 U/L 135 - 214 U/L [facility] Microscopic Urinalysison Bacteria, UA 2+ Abnormal None [facility] Epithelial Cells UA 0 TO [address] [facility] Interpretation and review of laboratory results Abnormal [facility] Mucus, UA TRACE Abnormal None [facility] RBC clumps Auto (Urine sed) [#/Area] 0 TO 2 [facility] WBC, UA 0 TO 2 [facility] No Panel Informationon 09-24 [facility] Protein / Creatinine Ratio, Urineon 03-11-2023 Creatinine, Ur 96.6 mg/dL 28.0 - 217.0 mg/dL [facility] Protein (U) [Mass/Vol] 17 mg/dL [facility] Comment on above: No normal range esta blished. Urine Total Protein Creatinine Ratio 0.18 0.00 - 0.20 [facility] Protein,Tot,[place] Uron 2022 Creatinine [Mass/Vol] 96.6 mg/dL Normal 28.0-217.0 [facility] Comment on above: Performed By: #### P RENAT #### [facility] [employer] Credit Card To Get Approved For [facility] [place] [address] Information Technology Analyst: Diego Bashir MD [facility] [address] [place] [address] [place] [address] Information Technology Analyst: Artem Jones MD Tot Prot. Conc. 17 mg/dL Normal [place] Comment on above: Result Comment: No n ormal range established. Performed By: #### P RENAT #### [facility] [employer] Card To Get Approved For [facility] [place] [address] Information Technology Analyst: Diego Bashir MD [facility] [address] [place] [address] [place] [id number] Information Technology Analyst: Artem Jones MD TP/Cre Ratio 0.18 Normal 0.00-0.20 [facility] Comment on above: Performed By: #### P RENAT #### [address] [address] Information Technology Analyst: Diego Bashir MD [facility] [address] [place] [address] [place] [address] Information Technology Analyst: Artem Jones MD TYPE AND SCREENon 09-24-2022 ABO/Rh Positive [facility] Arm Band Number [id number] [facility] Expiration Date 09/27/2022,2359 [facility] Urinalysison 09-24-2022 Bilirubin Urine Negative NEGATIVE [facility] Color, UA Yellow Yellow [facility] Glucose Auto test strip (U) [Mass/Vol] Negative NEGATIVE [facility] Interpretation and review of laboratory results Abnormal [facility] Ketones (U) [Mass/Vol] TRACE Abnormal NEGATIVE [facility] Leukocyte esterase Auto test strip Ql (U) Negative NEGATIVE [facility] Nitrite Auto test strip Ql (U) Negative NEGATIVE [facility] Protein (U) [Mass/Vol] 7.5 mg/dL 5.0 - 9.0 [facility] Protein (U) [Mass/Vol] Negative NEGATIVE [facility] Specific [place], UA 1.010 1.010 - 1.020 B ON [facility] Turbidity UA Clear Clear [facility] Urine Hgb Negative NEGATIVE [facility] Urobilinogen, Urine Normal Normal [facility] Urinalysis, Routineon 2022 Bilirubin, SemiQt,Ur Negative Normal NEG [facility] Comment on above: Performed By: #### U CGP #### [facility] [address] [place] [address] Information Technology Analyst: Diego Bashir MD Blood, Urine Negative Normal [facility] Comment on above: Performed By: #### U CGP #### [facility] [address] [phone] Information Technology Analyst: Diego Bashir MD Clarity (U) Clear Normal CLEAR [facility] Comment on above: Performed By: #### U CGP #### [employer] [address] [place] [address] Information Technology Analyst: Diego Bashir MD Color (U) Yellow Normal YEL [facility] Comment on above: Performed By: #### U CGP #### [employer] [address] [place] [address] Information Technology Analyst: Diego Bashir MD Glucose Ql (U) Negative Normal NEG [facility] Comment on above: Performed By: #### U CGP #### [address] [address] Information Technology Analyst: Diego Bashir MD Ketones Ql (U) TRACE Abnormal NEG [facility] in Hospital Comment on above: Performed By: #### U CGP #### [address] [address] Information Technology Analyst: Diego Bashir MD Leukocyte esterase Test strip Ql (U) Negative Normal NEG [facility] Comment on above: Performed By: #### U CGP #### [address] [address] Information Technology Analyst: Diego Bashir MD Nitrite,Ur Negative Normal NEG [facility] Comment on above: Performed By: #### U CGP #### [address] [address] Information Technology Analyst: Diego Bashir MD PH,Ur 7.5 Normal 5.0-9.0 [facility] Comment on above: Performed By: #### U CGP #### [address] [address] Information Technology Analyst: Diego Bashir MD Protein Ql (U) Negative Normal NEG [facility] in Hospital Comment on above: Performed By: #### U CGP #### [address] [address] Information Technology Analyst: Diego Bashir MD Spec. [place],Ur 1.010 Normal 1.010-1.020 [facility] Comment on above: Performed By: #### U CGP #### [address] [address] Information Technology Analyst: Diego Bashir MD [place],Ur Normal Normal NORM [place] Comment on above: Performed By: #### U CGP #### [address] [address] Information Technology Analyst: Diego Bashir MD Urinalysis,Microon 3 Bacteria 2+ Abnormal NONE [facility] Comment on above: Performed By: #### U CGP #### [address] [address] Information Technology Analyst: Diego Bashir MD Epithelial cells LM Ql (Urine sed) 0 TO 2 Normal 0-25 [facility] Comment on above: Performed By: #### U CGP #### [address] [address] Information Technology Analyst: Diego Bashir MD Mucus Strands TRACE Abnormal NONE [facility] Comment on above: Performed By: #### U CGP #### [address] [address] Information Technology Analyst: Diego Bashir MD Urine RBC's 0 TO 2 Normal 0-2 [facility] Comment on above: Performed By: #### U CGP #### [address] [address] Information Technology Analyst: Diego Bashir MD Urine WBC's 0 TO 2 Normal 0-5 [facility] Comment on above: Performed By: #### U CGP #### [address] [address] Information Technology Analyst: Diego Bashir MD Rule Out Grp.B Strepon 09-18 Rule Out Grp.B Strep Specimen Descriptio n .VAGINA Culture NEGATIVE FOR GROUP B STREPTOCOCCI Report Status FINAL 09/18/2022 Normal [facility] Comment on above: Performed By: #### R OGBS #### [address] [address] Information Technology Analyst: Diego Bashir MD EVENT MONITORon 09-16-2022 EVENT MONITOR [address] [id number] EVENT MONITOR PATIENT NAME: FABIEN PERAZA : 2000 MED REC NO: [id number] ROOM: ACCOUNT NO: [id number] ADMIT DATE: 08/16/2022 PROVIDER: Jade Soto MD [...] SB/JENIFER_EDIT Doc#: Unknown CC: ASHELY Padilla Normal [facility] CBCon 09-14-2022 Erythrocyte distribution width (RBC) [Ratio] 14.4 % Normal 11.8-14.4 [facility] Comment on above: Performed By: #### P RENAT #### [address] [address] Information Technology Analyst: Diego Bashir MD [address] [place] [address] Information Technology Analyst: Artem Jones MD Hematocrit (Bld) [Volume fraction] 31.2 % Low 36.3-47.1 [facility] Comment on above: Performed By: #### P RENAT #### [address] [address] Information Technology Analyst: Diego Bashir MD [address] [place] [address] Information Technology Analyst: Artem Jones MD Hemoglobin (Bld) [Mass/Vol] 9.8 g/dL Low 11.9-15.1 [facility] Comment on above: Performed By: #### P RENAT #### [address] [address] Information Technology Analyst: Diego Bashir MD [address] [place] [id number] Information Technology Analyst: Artem Jones MD MCH (RBC) [Entitic mass] 24.9 pg Low 25.2-33.5 [facility] Comment on above: Performed By: #### P RENAT #### [address] [id number] Information Technology Analyst: Diego Bashir MD [address] [place] [phone] Information Technology Analyst: Artem Jones MD MCHC (RBC) [Mass/Vol] 31.4 g/dL Normal 28.4-34.8 [facility] Comment on above: Performed By: #### P RENAT #### [address] [id number] Information Technology Analyst: Diego Bashir MD [address] [place] [phone] Information Technology Analyst: Artem Jones MD MCV (RBC) [Entitic vol] 79.2 fL Low 82.6-102.9 [facility] Comment on above: Performed By: #### P RENAT #### [address] [address] Information Technology Analyst: Diego Bashir MD [address] [place] [phone] Information Technology Analyst: Artem Jones MD NRBC Automated 0.0 per 100 WBC Normal 0.0 [facility] Comment on above: Performed By: #### P RENAT #### [address] [address] Information Technology Analyst: Diego Bashir MD [address] [place] [phone] Information Technology Analyst: Artem Jones MD Platelet mean volume (Bld) [Entitic vol] 8.3 fL Normal 8.1-13.5 [facility] Comment on above: Performed By: #### P RENAT #### [address] [place] [address] Information Technology Analyst: Diego Bashir MD [facility] [address] [place] [address] [place] [address] Information Technology Analyst: Artem Jones MD Platelets (Bld) [#/Vol] 267 10*3/uL Normal 138-453 [facility] Comment on above: Performed By: #### P RENAT #### [address] [place] [address] Information Technology Analyst: Diego Bashir MD [facility] [address] [place] [address] Dr. [place] [phone] Information Technology Analyst: Artem Jones MD RBC (Bld) [#/Vol] 3.94 10*6/uL Low 3.95-5.11 [facility] Comment on above: Performed By: #### P RENAT #### [address] [address] Information Technology Analyst: Diego Bashir MD [address] [place] [phone] Information Technology Analyst: Artem Jones MD WBC (Bld) [#/Vol] 10.7 10*3/uL Normal 3.5-11.3 [facility] Comment on above: Performed By: #### P RENAT #### [address] [address] Information Technology Analyst: Diego Bashir MD [facility] [address] [place] [address] Dr. [place] [phone] Information Technology Analyst: Artem Jones MD Hematocrit (Bld) [Volume fraction] 31.2 % Low 36.3 - 47.1 % [facility] Hemoglobin (Bld) [Mass/Vol] 9.8 g/dL Low 11.9 - 15.1 g/dL [facility] Interpretation and review of laboratory results Abnormal [facility] MCH (RBC) [Entitic mass] 24.9 pg Low 25.2 - 33.5 pg [facility] MCHC (RBC) [Mass/Vol] 31.4 g/dL 28.4 - 34.8 g/dL [facility] MCV (RBC) [Entitic vol] 79.2 fL Low 82.6 - 102.9 fL [facility] NRBC Automated 0.0 0.0 per 100 WBC [facility] Platelet distribution width (Bld) [Ratio] 14.4 % 11.8 - 14.4 % [facility] Platelet mean volume (Bld) [Entitic vol] 8.3 fL 8.1 - 13.5 fL [facility] Platelets (Bld) [#/Vol] 267 10*3/uL [facility] RBC (Bld) [#/Vol] 3.94 10*6/uL Low 3.95 - 5.11 m/uL [facility] WBC (Bld) [#/Vol] 10.7 10*3/uL [facility] Comp Metabolic Profon 2022 Albumin [Mass/Vol] 3.3 g/dL Low 3.5-5.2 [facility] Comment on above: Performed By: #### P RENAT #### [address] [place] [phone] Information Technology Analyst: Diego Bashir MD [facility] [address] [place] [address] [place] [address] Information Technology Analyst: Artem Jones MD Albumin/Glob Ratio 1.0 Normal 1.0-2.5 [facility] Comment on above: Performed By: #### P RENAT #### [facility] [employer] Card To Get Approved For [address] [place], [place] [id number] Information Technology Analyst: Diego Bashir MD [facility] [address] [place] [address] Information Technology Analyst: Artem Jones MD Alkaline Phos 124 U/L High 35-104 [facility] Comment on above: Performed By: #### P RENAT #### [facility] [address] [place] [address] Information Technology Analyst: Diego Bashir MD [facility] [address] [place] [address] Dr. [place], [place] [phone] Information Technology Analyst: Artem Jones MD ALT [Catalytic activity/Vol] 7 U/L Normal 5-33 [facility] Comment on above: Performed By: #### P RENAT #### [address] [place] [address] Information Technology Analyst: Diego Bashir MD [facility] [address] [place] [address] [place] [address] Information Technology Analyst: Artem Jones MD Anion gap [Moles/Vol] 11 mmol/L Normal 9-17 [facility] Comment on above: Performed By: #### P RENAT #### [address] [address] Information Technology Analyst: Diego Bashir MD [address] [place] [phone] Information Technology Analyst: Artem Jones MD AST [Catalytic activity/Vol] 12 U/L Normal <32 [facility] Comment on above: Performed By: #### P RENAT #### [address] [address] Information Technology Analyst: Diego Bashir MD [address] [place] [phone] Information Technology Analyst: Artem Jones MD Bilirubin [Mass/Vol] 0.2 mg/dL Low 0.3-1.[address] [facility] Comment on above: Performed By: #### P RENAT #### [address] [address] Information Technology Analyst: Diego Bashir MD [facility] [address] [place] [address] [place] [address] Information Technology Analyst: Artem Jones MD BUN/CRE Ratio 8 Low 9-20 [facility] Comment on above: Performed By: #### P RENAT #### [facility] [address] [place] [address] Information Technology Analyst: Diego Bashir MD [facility] [address] [place] [address] Dr. [place], [place] [phone] Information Technology Analyst: Artem Jones MD Calcium [Mass/Vol] 9.4 mg/dL Normal 8.6-10.4 [facility] Comment on above: Performed By: #### P RENAT #### [address] [address] Information Technology Analyst: Diego Bashir MD [facility] [address] [place] [address] [place] [address] Information Technology Analyst: Artem Jones MD Chloride [Moles/Vol] 105 mmol/L Normal 98-[address] [facility] Comment on above: Performed By: #### P RENAT #### [address] [address] Information Technology Analyst: Diego Bashir MD [facility] [address] [place] [address] [place] [address] Information Technology Analyst: Artem Jones MD CO2 [Moles/Vol] 22 mmol/L Normal 20-31 [place] Comment on above: Performed By: #### P RENAT #### [address] [address] Information Technology Analyst: Diego Bashir MD [facility] [address] [place] [address] [place] [address] Information Technology Analyst: Artem Jones MD Creatinine [Mass/Vol] 0.50 mg/dL Normal 0.50-0.90 [facility] Comment on above: Performed By: #### P RENAT #### [address] [address] Information Technology Analyst: Diego Bashir MD [facility] [address] [place] [address] Information Technology Analyst: Artem Jones MD GFR/1.73 sq M.predicted among non-blacks MDRD (S/P/Bld) [Vol rate/Area] mL/min/{1.73_m2} Normal >60 [facility] Comment on above: Result Comment: These results [...] secretion. Performed By: #### P RENAT #### [address] [address] Information Technology Analyst: Diego Bashir MD [address] [place] [address] Information Technology Analyst: Artem Jones MD Glucose [Mass/Vol] 108 mg/dL High 70-99 [facility] Comment on above: Performed By: #### P RENAT #### [address] [address] Information Technology Analyst: Diego Bashir MD [address] [place] [phone] Information Technology Analyst: Artem Jones MD Potassium [Moles/Vol] 3.8 mmol/L Normal 3.7-5.3 [facility] Comment on above: Performed By: #### P RENAT #### [facility] [employer] Credit Card To Get Approved For [address] [place] [phone] Information Technology Analyst: Diego Bashir MD [address] [place] [address] Information Technology Analyst: Artem Jones MD Protein [Mass/Vol] 6.5 g/dL Normal 6.4-8.3 [facility] Comment on above: Performed By: #### P RENAT #### [facility] [address] [place] [address] Information Technology Analyst: Diego Bashir MD [facility] [address] [place] [address] Information Technology Analyst: Artem Jones MD Sodium [Moles/Vol] 138 mmol/L Normal 135-144 [facility] Comment on above: Performed By: #### P RENAT #### [facility] [address] [place] [address] Information Technology Analyst: Diego Bashir MD [facility] [address] [place] [place] [address] Information Technology Analyst: Artem Jones MD Urea nitrogen [Mass/Vol] 4 mg/dL Low 6-20 [facility] Comment on above: Performed By: #### P RENAT #### [facility] [address] [place] [address] Information Technology Analyst: Diego Bashir MD [facility] [address] [place] [address] Information Technology Analyst: Artem Jones MD [facility] Metabolic Pane [facility] 09-14-2022 Albumin [Mass/Vol] 3.3 g/dL Low 3.5 - 5.2 g/dL [facility] Albumin/Globulin [Mass ratio] 1.0 {ratio} 1.0 - 2.5 [facility] ALP [Catalytic activity/Vol] 124 U/L High 35 - 104 U/L [facility] ALT [Catalytic activity/Vol] 7 U/L 5 - 33 U/L [facility] Anion gap [Moles/Vol] 11 mmol/L 9 - 17 mmol/L [facility] AST [Catalytic activity/Vol] 12 U/L NINF - 32 U/L [facility] Bilirubin [Mass/Vol] 0.2 mg/dL Low 0.3 - 1.2 mg/dL [facility] Calcium [Mass/Vol] 9.4 mg/dL 8.6 - 10.4 mg/dL [facility] Chloride [Moles/Vol] 105 mmol/L 98 - 107 mmol/L [facility] CO2 [Moles/Vol] 22 mmol/L 20 - 31 mmol/L [facility] Creatinine [Mass/Vol] 0.5 mg/dL 0.50 - 0.90 mg/dL [facility] GFR/1.73 sq M.predicted MDRD (S/P/Bld) [Vol rate/Area] - PINF [facility] Comment on above: These results are not [...] 108 mg/dL High 70 - 99 mg/dL [facility] Interpretation and review of laboratory results Abnormal [facility] Potassium [Moles/Vol] 3.8 mmol/L 3.7 - 5.3 mmol/L [facility] Protein [Mass/Vol] 6.5 g/dL 6.4 - 8.3 g/dL [facility] Sodium [Moles/Vol] 138 mmol/L 135 - 144 mmol/L [facility] Urea nitrogen [Mass/Vol] 4 mg/dL Low 6 - 20 mg/dL [facility] Urea nitrogen/Creatinine (Bld) [Mass ratio] 8 Low 9 - 20 [facility] Protein / Creatinine Ratio, Urineon 09-14-2022 Creatinine, Ur 110.6 mg/dL 28.0 - 217.0 mg/dL [facility] Protein (U) [Mass/Vol] 13 mg/dL [facility] Comment on above: No normal range esta blished. Urine Total Protein Creatinine Ratio 0.12 0.00 - 0.20 [facility] Protein,Tot,[place] 2022 Creatinine [Mass/Vol] 110.6 mg/dL Normal 28.0-217.0 [facility] Comment on above: Performed By: #### U RTPRT #### [facility] [address] [place], [place] [phone] Information Technology Analyst: Diego Bashir MD Tot Prot. Conc. 13 mg/dL Normal [facility] Comment on above: Result Comment: No n ormal range established. Performed By: #### U RTPRT #### [facility] [place], [place] [phone] Information Technology Analyst: Diego Bashir MD TP/Cre Ratio 0.12 Normal 0.00-0.20 [facility] Comment on above: Performed By: #### U RTPRT #### [facility] [place] [phone] Information Technology Analyst: Diego Bashir MD US OB FOLLOW UP TRANSABDOMIN AL APPROACHon 09-12-2022 US OB FOLLOW UP TRANSABDOMINAL APPROACH Growth Ultrasound ? Viable 35 week, 5 day SIUP EFW= 65% AC>HC Vertex Anterior placenta ELEONORA= 12.8 cm Interpreted by: Arin Blake DO Signed by: Arin Blake DO 09/12/22 Final result Normal [facility] US OB FOLLOW UP TRANSABDOMIN AL APPROACHon 08-29-2022 US OB FOLLOW UP TRANSABDOMINAL APPROACH Growth Ultrasound ? Viable 31 week, 4 day SIUP EFW= 53% Vertex Anterior placenta ELEONORA= 11.5 cm Cx length= 4.1 cm ? Interpreted by: Arin Blake DO Signed by: Arin Blake DO 08/29/22 Final result Normal [facility] CBC with Auto Differentialon 08-25-2022 Absolute Eos # 0.11 [facility] [employer] Absolute Immature Granulocyte 0.10 [facility] Absolute Lymph # 2.10 [facility] [employer] Absolute [place] # 0.52 [facility] [employer] Basophils (Bld) [#/Vol] 0.04 10*3/uL [facility] Basophils/100 WBC (Bld) 0 % 0 - 2 % [facility] Eosinophils/100 WBC (Bld) 1 % 1 - 4 % [facility] Hematocrit (Bld) [Volume fraction] 33.1 % Low 36.3 - 47.1 % [facility] Hemoglobin (Bld) [Mass/Vol] 10.5 g/dL Low 11.9 - 15.1 g/dL [facility] Immature granulocytes/100 WBC (Bld) 1 % High 0 [facility] Interpretation and review of laboratory results Abnormal [facility] Lymphocytes/100 WBC (Bld) 23 % Low 24 - 43 % [facility] MCH (RBC) [Entitic mass] 25.9 pg 25.2 - 33.5 pg [facility] MCHC (RBC) [Mass/Vol] 31.7 g/dL 28.4 - 34.8 g/dL [facility] MCV (RBC) [Entitic vol] 81.7 fL Low 82.6 - 102.9 fL [facility] Monocytes/100 WBC (Bld) 6 % 3 - 12 % [facility] NRBC Automated 0.0 0.0 per 100 WBC [facility] Platelet distribution width (Bld) [Ratio] 14.4 % 11.8 - 14.4 % [facility] Platelet mean volume (Bld) [Entitic vol] 9.1 fL 8.1 - 13.5 fL [facility] Platelets (Bld) [#/Vol] 301 10*3/uL [facility] RBC (Bld) [#/Vol] 4.05 10*6/uL 3.95 - 5.11 m/uL [facility] RBC (Bld) [#/Vol] MICROCYTOSIS PRESENT [facility] Segmented neutrophils/100 WBC (Bld) 69 % High 36 - 65 % [facility] Segs Absolute 6.28 [facility] WBC (Bld) [#/Vol] 9.2 10*3/uL [facility] CBC with Diffon 08-25-2022 Abs. Basophil 0.04 k/uL Normal 0.00-0.20 [facility] Comment on above: Performed By: #### C DP, GLUSC #### [address] [address] Information Technology Analyst: Diego Bashir MD Abs.Imm.Granulocyte 0.10 k/uL Normal 0.00-0.30 [facility] Comment on above: Performed By: #### C DP, GLUSC #### [place] [address] Information Technology Analyst: Diego Bashir MD Abs.Neutrophil (Seg) 6.28 k/uL Normal 1.50-8.10 [facility] Comment on above: Performed By: #### C DP, GLUSC #### [place] [address] Information Technology Analyst: Diego Bashir MD Basophils/100 WBC (Bld) 0 % Normal 0-2 [facility] Comment on above: Performed By: #### C DP, GLUSC #### [place] [address] Information Technology Analyst: Diego Bashir MD Eosinophils (Bld) [#/Vol] 0.11 10*3/uL Normal 0.00-0.44 [facility] Comment on above: Performed By: #### C DP, GLUSC #### [place] [address] Information Technology Analyst: Diego Bashir MD Eosinophils/100 WBC (Bld) 1 % Normal 1-4 [facility] Comment on above: Performed By: #### C DP, GLUSC #### [place] [address] Information Technology Analyst: Diego Bashir MD Erythrocyte distribution width (RBC) [Ratio] 14.4 % Normal 11.8-14.4 [facility] Comment on above: Performed By: #### C DP, GLUSC #### [address] [address] Information Technology Analyst: Diego Bashir MD Hematocrit (Bld) [Volume fraction] 33.1 % Low 36.3-47.1 [facility] Comment on above: Performed By: #### C DP, GLUSC #### [address] [address] Information Technology Analyst: Diego Bashir MD Hemoglobin (Bld) [Mass/Vol] 10.5 g/dL Low 11.9-15.1 [facility] Comment on above: Performed By: #### C DP, GLUSC #### [address] [address] Information Technology Analyst: Diego Bashir MD Immature granulocytes/100 WBC (Bld) 1 % High 0 [facility] Comment on above: Performed By: #### C DP, GLUSC #### [address] [address] Information Technology Analyst: Diego Bashir MD Lymphocytes (Bld) [#/Vol] 2.10 10*3/uL Normal 1.10-3.70 [facility] Comment on above: Performed By: #### C DP, GLUSC #### [address] [address] Information Technology Analyst: Diego Bashir MD Lymphocytes/100 WBC (Bld) 23 % Low 24-43 [facility] Comment on above: Performed By: #### C DP, GLUSC #### [address] [address] Information Technology Analyst: Diego Bashir MD MCH (RBC) [Entitic mass] 25.9 pg Normal 25.2-33.5 [facility] Comment on above: Performed By: #### C DP, GLUSC #### [address] [address] Information Technology Analyst: Diego Bashir MD MCHC (RBC) [Mass/Vol] 31.7 g/dL Normal 28.4-34.8 [facility] Comment on above: Performed By: #### C DP, GLUSC #### [address] [address] Information Technology Analyst: Diego Bashir MD MCV (RBC) [Entitic vol] 81.7 fL Low 82.6-102.9 [facility] Comment on above: Performed By: #### C DP, GLUSC #### [address] [address] Information Technology Analyst: Diego Bashir MD Monocytes (Bld) [#/Vol] 0.52 10*3/uL Normal 0.10-1.20 [facility] Comment on above: Performed By: #### C DP, GLUSC #### [address] [address] Information Technology Analyst: Diego Bashir MD Monocytes/100 WBC (Bld) 6 % Normal 3-12 [facility] Comment on above: Performed By: #### C DP, GLUSC #### [address] [address] Information Technology Analyst: Diego Bashir MD Neutrophil (Seg) 69 % High 36-65 [facility] Comment on above: Performed By: #### C DP, GLUSC #### [address] [address] Information Technology Analyst: Diego Bashir MD NRBC Automated 0.0 per 100 WBC Normal 0.0 [facility] Comment on above: Performed By: #### C DP, GLUSC #### [address] [address] Information Technology Analyst: Diego Bashir MD Platelet mean volume (Bld) [Entitic vol] 9.1 fL Normal 8.1-13.5 [facility] Comment on above: Performed By: #### C DP, GLUSC #### [address] [address] Information Technology Analyst: Diego Bashir MD Platelets (Bld) [#/Vol] 301 10*3/uL Normal 138-453 [facility] Comment on above: Performed By: #### C DP, GLUSC #### [address] [address] Information Technology Analyst: Diego Bashir MD RBC (Bld) [#/Vol] 4.05 10*6/uL Normal 3.95-5.11 [facility] Comment on above: Performed By: #### C DP, GLUSC #### [address] [address] Information Technology Analyst: Diego Bashir MD RBC morphology finding Nom (Bld) MICROCYTOSIS PRESENT Normal [facility] Comment on above: Performed By: #### C DP, GLUSC #### [address] [address] Information Technology Analyst: Diego Bashir MD WBC (Bld) [#/Vol] 9.2 10*3/uL Normal 3.5-11.3 [facility] Comment on above: Performed By: #### C DP, GLUSC #### [address] [address] Information Technology Analyst: iDego Bashir MD Glucose [place] 50gon 2022 Glucose [Mass/Vol] 142 mg/dL High 70-135 [facility] Comment on above: Performed By: #### C DP, GLUSC #### [address] [address] Information Technology Analyst: Diego Bashir MD Glu Administered via Glucola Normal [facility] Comment on above: Performed By: #### C DP, GLUSC #### [facility] [employer] Card To Get Approved For [address] [place] [address] Information Technology Analyst: Diego Bashir MD Glucose tolerance, 1 houron 08-25-2022 GLU ADMN Glucola [facility] Glucose tolerance screen 50g 142 mg/dL High 70 - 135 mg/dL [facility] Interpretation and review of laboratory results Abnormal [facility] Echo 2D w doppler w color co mpleteon 08-16-2022 [facility] Transthoracic Echocardiography Report (TTE) Patient Name KARMEN Date of Study 08/16/2022 FABIEN Ovalle Date of 2000 Gender Female Age 21 year(s) Race Room Number Height: 62 inch, 157.48 cm Corporate ID [id number] Weight: 197 pounds, 89.4 kg # Patient Acct [id number] BSA: 1.9 m^2 BMI: 36.03 # kg/m^2 MR # [id number] Loan Officer Assistant Work,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 Procedure Date Date: 08/16/2022 Start: 08:31 AM Study Location: [facility] Indications:Lighthead edness. History / Tech. Comments: Dx: [...] Calculations: LVIDd:4.97 cm(3.7 - 5.6 cm) Diastolic Volume:95.58383 ml LVIDs:3.11 cm(2.2 - 4.0 cm) Systolic [...] velocity:0.13 m/s Lateral Wall E/E':5.26 MHPN [facility] Jose A Chandler MD - 08/16/[address] [facility] Transthoracic Echocardiography Report (TTE) Patient Name KARMEN Date of Study 08/16/2022 FABIEN Ovalle Date of 2000 Gender Female Age 21 year(s) Race Room Number Height: 62 inch, 157.48 cm Corporate ID [id number] Weight: 197 pounds, 89.4 kg # Patient Acct [id number] BSA: 1.9 m^2 BMI: 36.03 # kg/m^2 MR # [id number] Loan Officer Assistant Work,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 Procedure Date Date: 08/16/2022 Start: 08:31 AM Study Location: [facility] Indications:Lighthead edness. History / Tech. Comments: Dx: [...] Calculations: LVIDd:4.97 cm(3.7 - 5.6 cm) Diastolic Volume:95.59133 ml LVIDs:3.11 cm(2.2 - 4.0 cm) Systolic [...] Wall E' velocity:0.13 m/s Lateral Wall E/E':5.26 [facility] Phone: Echo 2D w doppler w color co mpleteOrdered By: Jose A Chandler on 08-16-2022 [facility] Phone: Urinalysison 08-02-2022 Bilirubin Urine Negative NEGATIVE [place] Color, UA Yellow Yellow [facility] Glucose, Ur Negative NEGATIVE [facility] Interpretation and review of laboratory results Abnormal [facility] Ketones Ql (U) Negative NEGATIVE [facility] Leukocyte esterase Test strip Ql (U) Negative NEGATIVE [facility] Nitrite, Urine Negative NEGATIVE [facility] pH, UA 7.0 5.0 - 9.0 [facility] Protein, UA Negative NEGATIVE [facility] Specific [place], UA Low 1.010 - 1.020 B ON [facility] Turbidity UA Clear Clear [facility] Urine Hgb Negative NEGATIVE [facility] Urobilinogen, Urine Normal Normal [facility] Urinalysis, Routineon 2022 Bilirubin, SemiQt,Ur Negative Normal NEG [facility] Comment on above: Performed By: #### U A #### [facility] [address] [place] [id number] Information Technology Analyst: Artem Jones MD Blood, Urine Negative Normal [facility] Comment on above: Performed By: #### U A #### [facility] [address] [place] [phone] Information Technology Analyst: Artem Jones MD Clarity (U) Clear Normal CLEAR [facility] Comment on above: Performed By: #### U A #### [facility] [address] [place] [address] Dr. [place] [phone] Information Technology Analyst: Artem Jones MD Color (U) Yellow Normal YEL [facility] Comment on above: Performed By: #### U A #### [facility] [address] [place] [address] Information Technology Analyst: Artem Jones MD Glucose Ql (U) Negative Normal NEG [facility] Comment on above: Performed By: #### U A #### [facility] [address] [place] [address] Information Technology Analyst: Artem Jones MD Ketones Ql (U) Negative Normal NEG [facility] in Hospital Comment on above: Performed By: #### U A #### [facility] [address] [place] [address] Dr. [place], [place] [phone] Information Technology Analyst: Artem Jones MD Leukocyte esterase Test strip Ql (U) Negative Normal NEG [facility] Comment on above: Performed By: #### U A #### [facility] [address] [place] [address] Dr. [place], [place] [phone] Information Technology Analyst: Artem Jones MD Nitrite,Ur Negative Normal NEG [facility] Comment on above: Performed By: #### U A #### [address] [place], [place] [phone] Information Technology Analyst: Artem Jones MD PH,Ur 7.0 Normal 5.0-9.0 [facility] Comment on above: Performed By: #### U A #### [facility] [address] [place] [address] Dr. [place], [place] [phone] Information Technology Analyst: Artem Jones MD Protein Ql (U) Negative Normal NEG [facility] Comment on above: Performed By: #### U A #### [address] [place], [place] [phone] Information Technology Analyst: Artem Jones MD Spec. [place],Ur <1.005 Low 1.010-1.020 [facility] Comment on above: Performed By: #### U A #### [facility] [address] [place] [address] Dr. [place], [place] [phone] Information Technology Analyst: Artem Jones MD Urobilinogen,Ur Normal Normal NORM [place] Comment on above: Performed By: #### U A #### [address] [place] [address] Information Technology Analyst: Artem Jones MD Cult,Urineon 02-23-2022 Cult,Urine Specimen Description .CLEAN CATCH URINE Culture KLEBSIELLA PNEUMONIAE >[id number] CFU/ML Report Status FINAL 02/23/2022 SUSCEPTIBILITY Organism [...] <=20 SUSCEPTIBLE Piperacillin/Tazobact am <=4 SUSCEPTIBLE Susceptible [facility] Comment on above: Performed By: #### U #### [facility] [address] [place], [place] [phone] Information Technology Analyst: Diego Bashir MD [facility] [address] [place] [address] Information Technology Analyst: Artem Jones MD Chlamydia/GC DNA, Uron 02-22 Chlamydia Probe, Ur Negative Normal NEG [facility] Comment on above: Result Comment: CHLA MYDIA [...] target. Performed By: #### U CG #### [facility] [address] [place], [place] [id number] Information Technology Analyst: Diego Bashir MD Gonorrhea Probe, Ur Negative Normal NEG [facility] Comment on above: Result Comment: NEIS SERIA [...] target. Performed By: #### U CGP #### [address] [address] Information Technology Analyst: Diego Bashir MD HIV Ag/Abon 02-22-2022 HIV Ag/Ab Non-Reactive [facility] Comment on above: Result Comment: No l aboratory evidence of HIV infection. If acute HIV infection is suspected, consider testing for HIV-1 RNA. Performed By: #### H IVCMB, AHCV #### [address] [address] Information Technology Analyst: Diego Bashir MD Hep C Abon 02-22-2022 Hep C Ab Non-Reactive Normal [facility] Comment on above: Result Comment: The hepatitis [...] Performed By: #### H IVCMB, AHCV #### [address] [address] Information Technology Analyst: Diego Bashir MD Profileon T.pallidum Ab Screen Non-Reactive Normal [facility] Comment on above: Result Comment: T. pallidum antibodies are not detected. There is no serological evidence of infection with T. pallidum (early primary syphilis cannot be excluded). Retest in 2-4 weeks if syphilis is clinically suspect. Performed By: #### P RENAT #### [address] [address] Information Technology Analyst: Diego Bashir MD [facility] [address] [place] [address] [place] [address] Information Technology Analyst: Artem Jones MD Hep B Surf Ag Non-Reactive Normal [facility] Comment on above: Performed By: #### P RENAT #### [address] [phone] Information Technology Analyst: Diego Bashir MD [facility] [address] [place] [address] Information Technology Analyst: Artem Jones MD Rubella Ab, IgG 67.8 IU/mL Normal [place] Comment on above: Result Comment: REFERENCE RANGE: <5.0 NON-REACTIVE (non-immune) 5.0 TO 9.9 EQUIVOCAL >=10.0 REACTIVE (immune) Performed By: #### P RENAT #### [facility] [address] [place], [place] [phone] Information Technology Analyst: Diego Bashir MD [facility] [address] [place] [address] Information Technology Analyst: Artem Jones MD Profile Ion 022 Absolute Eos # 0.10 [facility] Absolute Immature Granulocyte 0.05 [facility] Absolute Lymph # 2.73 [facility] Absolute [place] # 0.69 [facility] Basophils (Bld) [#/Vol] 0.07 10*3/uL [facility] Basophils/100 WBC (Bld) 1 % 0 - 2 % [facility] Eosinophils/100 WBC (Bld) 1 % 1 - 4 % [facility] Hematocrit (Bld) [Volume fraction] 37.3 % 36.3 - 47.1 % [facility] Hemoglobin (Bld) [Mass/Vol] 12.2 g/dL 11.9 - 15.1 g/dL [facility] Hepatitis B Surface Ag Non-Reactive NONREACTIVE [facility] Immature granulocytes/100 WBC (Bld) 1 % High 0 [facility] Interpretation and review of laboratory results Abnormal [facility] Lymphocytes/100 WBC (Bld) 28 % 24 - 43 % [facility] MCH (RBC) [Entitic mass] 28.0 pg 25.2 - 33.5 pg [facility] MCHC (RBC) [Mass/Vol] 32.7 g/dL 28.4 - 34.8 g/dL [facility] MCV (RBC) [Entitic vol] 85.7 fL 82.6 - 102.9 fL [facility] Monocytes/100 WBC (Bld) 7 % 3 - 12 % [facility] NRBC Automated 0.0 0.0 per 100 WBC [facility] Platelet distribution width (Bld) [Ratio] 12.7 % 11.8 - 14.4 % [facility] Platelet mean volume (Bld) [Entitic vol] 9.3 fL 8.1 - 13.5 fL [facility] Platelets (Bld) [#/Vol] 300 10*3/uL [facility] RBC (Bld) [#/Vol] 4.35 10*6/uL 3.95 - 5.11 m/uL [facility] Rubella virus IgG Ql (S) 67.8 IU/mL [facility] Comment on above: REFERENCE RANGE: <5.0 NON-REACTIVE (non-immune) 5.0 TO 9.9 EQUIVOCAL >=10.0 REACTIVE (immune) Segmented neutrophils/100 WBC (Bld) 62 % 36 - 65 % [facility] Segs Absolute 6.09 [facility] T. pallidum, IgG Non-Reactive NONREACTIVE [facility] Comment on above: T. pallidum antibodies are not detected. There is no serological evidence of infection with T. pallidum (early primary syphilis cannot be excluded). Retest in 2-4 weeks if syphilis is clinically suspect. WBC (Bld) [#/Vol] 9.7 10*3/uL [facility] HIV Screenon 02-21-2022 HIV Ag/Ab Non-Reactive NONREACTIVE [facility] Comment on above: No laboratory eviden ce of HIV infection. If acute HIV infection is suspected, consider testing for HIV-1 RNA. [facility] Hepatitis C Antibodyon 02-21 Hepatitis C Ab Non-Reactive NONREACTIVE [facility] Comment on above: The hepatitis C [...] recommended by ordering HCV RNA by PCR. [facility] TYPE AND SCREENon 0 02-21-2022 ABO/Rh Positive [facility] Profileon 2 Abs. Basophil 0.07 k/uL Normal 0.00-0.20 [facility] Comment on above: Performed By: #### P RENAT #### [place] [address] [place] [address] Information Technology Analyst: Diego Bashir MD [address] [place] [phone] Information Technology Analyst: Artem Jones MD Abs.Imm.Granulocyte 0.05 k/uL Normal 0.00-0.30 [facility] Comment on above: Performed By: #### P RENAT #### [address] [address] Information Technology Analyst: Diego Bashir MD [address] [place] [address] Information Technology Analyst: Artem Jones MD Abs.Neutrophil (Seg) 6.09 k/uL Normal 1.50-8.[address] [facility] Comment on above: Performed By: #### P RENAT #### [address] [address] Information Technology Analyst: Diego Bashir MD [address] [place] [address] Information Technology Analyst: Artem Jones MD Basophils/100 WBC (Bld) 1 % Normal 0-2 [facility] Comment on above: Performed By: #### P RENAT #### [address] [address] Information Technology Analyst: Diego Bashir MD [address] [place] [address] Information Technology Analyst: Artem Jnoes MD Eosinophils (Bld) [#/Vol] 0.10 10*3/uL Normal 0.00-0.44 [facility] Comment on above: Performed By: #### P RENAT #### [address] [place] [address] Information Technology Analyst: Diego Bashir MD [facility] [address] [place] [address] Dr. [place] [phone] Information Technology Analyst: Artem Jones MD Eosinophils/100 WBC (Bld) 1 % Normal 1-4 [facility] Comment on above: Performed By: #### P RENAT #### [address] [address] Information Technology Analyst: Diego Bashir MD [address] [place] [phone] Information Technology Analyst: Artem Jones MD Erythrocyte distribution width (RBC) [Ratio] 12.7 % Normal 11.8-14.4 [facility] Comment on above: Performed By: #### P RENAT #### [address] [address] Information Technology Analyst: Diego Bashir MD [address] [place] [address] Information Technology Analyst: Artem Jones MD Hematocrit (Bld) [Volume fraction] 37.3 % Normal 36.3-47.1 [facility] Comment on above: Performed By: #### P RENAT #### [address] [address] Information Technology Analyst: Diego Bashir MD [address] [place] [address] Information Technology Analyst: Artem Jones MD Hemoglobin (Bld) [Mass/Vol] 12.2 g/dL Normal 11.9-15.1 [facility] Comment on above: Performed By: #### P RENAT #### [address] [address] Information Technology Analyst: Diego Bashir MD [facility] [address] [place] [address] [place] [address] Information Technology Analyst: Artem Jones MD Immature granulocytes/100 WBC (Bld) 1 % High 0 [facility] Comment on above: Performed By: #### P RENAT #### [address] [place] [address] Information Technology Analyst: Diego Bashir MD [facility] [address] [place] [address] Dr. [place] [phone] Information Technology Analyst: Artem Jones MD Lymphocytes (Bld) [#/Vol] 2.73 10*3/uL Normal 1.10-3.70 [facility] Comment on above: Performed By: #### P RENAT #### [address] [address] Information Technology Analyst: Diego Bashir MD [address] [place] [phone] Information Technology Analyst: Artem Jones MD Lymphocytes/100 WBC (Bld) 28 % Normal 24-43 [facility] Comment on above: Performed By: #### P RENAT #### [address] [address] Information Technology Analyst: Diego Bashir MD [address] [place] [phone] Information Technology Analyst: Artem Jones MD MCH (RBC) [Entitic mass] 28.0 pg Normal 25.2-33.5 [facility] Comment on above: Performed By: #### P RENAT #### [address] [address] Information Technology Analyst: Diego Bashir MD [facility] [address] [place] [address] [place] [address] Information Technology Analyst: Artem Jones MD MCHC (RBC) [Mass/Vol] 32.7 g/dL Normal 28.4-34.8 [facility] Comment on above: Performed By: #### P RENAT #### [address] [place] [address] Information Technology Analyst: Diego Bashir MD [facility] [address] [place] [address] Dr. [place], [place] [phone] Information Technology Analyst: Artem Jones MD MCV (RBC) [Entitic vol] 85.7 fL Normal 82.6-102.9 [facility] Comment on above: Performed By: #### P RENAT #### [address] [address] Information Technology Analyst: Diego Bashir MD [address] [place] [phone] Information Technology Analyst: Artem Jones MD Monocytes (Bld) [#/Vol] 0.69 10*3/uL Normal 0.10-1.20 [facility] Comment on above: Performed By: #### P RENAT #### [address] [address] Information Technology Analyst: Diego Bashir MD [address] [place] [phone] Information Technology Analyst: Artem Jones MD Monocytes/100 WBC (Bld) 7 % Normal 3-12 [facility] Comment on above: Performed By: #### P RENAT #### [address] [address] Information Technology Analyst: Diego Bashir MD [facility] [address] [place] [address] Dr. [place] [phone] Information Technology Analyst: Artem Jones MD Neutrophil (Seg) 62 % Normal 36-65 [facility] Comment on above: Performed By: #### P RENAT #### [address] [address] Information Technology Analyst: Diego Bashir MD [facility] [address] [place] [address] Dr. [place], [place] [phone] Information Technology Analyst: Artem Jones MD NRBC Automated 0.0 per 100 WBC Normal 0.0 [facility] Comment on above: Performed By: #### P RENAT #### [address] [address] Information Technology Analyst: Diego Bashir MD [facility] [address] [place] [address] Dr. [place] [phone] Information Technology Analyst: Artem Jones MD Platelet mean volume (Bld) [Entitic vol] 9.3 fL Normal 8.1-13.5 [facility] Comment on above: Performed By: #### P RENAT #### [address] [address] Information Technology Analyst: Diego Bashir MD [address] [place] [phone] Information Technology Analyst: Artem Jones MD Platelets (Bld) [#/Vol] 300 10*3/uL Normal 138-453 [facility] Comment on above: Performed By: #### P RENAT #### [address] [address] Information Technology Analyst: Diego Bashir MD [address] [place] [address] Information Technology Analyst: Artem Jones MD RBC (Bld) [#/Vol] 4.35 10*6/uL Normal 3.95-5.11 [facility] Comment on above: Performed By: #### P RENAT #### [address] [address] Information Technology Analyst: Diego Bashir MD [facility] [address] [place] [address] Dr. [place], [place] 8692383 Information Technology Analyst: Artem Jones MD WBC (Bld) [#/Vol] 9.7 10*3/uL Normal 3.5-11.3 [facility] Comment on above: Performed By: #### P RENAT #### [address] [address] Information Technology Analyst: Diego Bashir MD [facility] [address] [place] [address] Information Technology Analyst: Artem Jones MD Type + Scrnon 02-21 Type + Scrn Negative Normal [facility] Comment on above: Performed By: #### P RTYS #### [facility] [address] [place] [address] Information Technology Analyst: Artem Jones MD Toxicology Scree, Urineon Amphetamine(s),Ur Negative Normal NEG [facility] Comment on above: Performed By: #### U CGP #### [address] [address] Information Technology Analyst: Diego Bashir MD Barbiturate(s),Ur Negative Normal NEG [facility] Comment on above: Performed By: #### U CGP #### [address] [address] Information Technology Analyst: Diego Bashir MD Benzodiazepine(s) Negative Normal NEG [facility] Comment on above: Performed By: #### U CGP #### [address] [address] Information Technology Analyst: Diego Bashir MD Buprenorphrine, Ur Negative Normal NEG [facility] Comment on above: Performed By: #### U CGP #### [address] [address] Information Technology Analyst: Diego Bashir MD Cannabinoid(s),Ur Negative Normal NEG [facility] Comment on above: Performed By: #### U CGP #### [address] [address] Information Technology Analyst: Diego Bashir MD Cocaine Metabolite Negative Normal [facility] Comment on above: Performed By: #### U CGP #### [address] [address] Information Technology Analyst: Diego Bashir MD Methadone Negative Normal NEG [facility] Comment on above: Performed By: #### U CGP #### [address] [address] Information Technology Analyst: Diego Bashir MD Methamphetamine, Ur Negative Normal NEG [facility] Comment on above: Performed By: #### U CGP #### [address] [address] Information Technology Analyst: Diego Bashir MD Opiate(s), Ur Negative Normal NEG [facility] Comment on above: Performed By: #### U CGP #### [address] [address] Information Technology Analyst: Diego Bashir MD Oxycodone, Urine Negative Normal NEG [facility] Comment on above: Performed By: #### U CGP #### [address] [address] Information Technology Analyst: Diego Bashir MD Phencyclidine, Ur Negative Normal [facility] Comment on above: Performed By: #### U CGP #### [address] [address] Information Technology Analyst: Diego Bashir MD Propoxyphene,Urine Negative Normal [facility] Comment on above: Performed By: #### U CGP #### [address] [address] Information Technology Analyst: Diego Bashir MD Tricyclic Antidepressants Negative Normal [facility] Comment on above: Result Comment: Drug screen results are to be used for medical purposes only. All positive results are unconfirmed. Testing for employment or legal uses should be sent to a reference laboratory for confirmation. Performed By: #### U CGP #### [facility] [address] [place] [id number] Information Technology Analyst: Diego Bashir MD Urine Drug Screen, Chad gonzalez 02-21-2022 Amphetamine Screen, Ur Negative NEGATIVE [facility] Barbiturate Screen, Ur Negative NEGATIVE [facility] Benzodiazepine Screen, Urine Negative NEGATIVE [facility] Buprenorphine Urine Negative NEGATIVE [facility] Cannabinoid Scrn, Ur Negative NEGATIVE [facility] Cocaine Metabolite, Urine Negative NEGATIVE [facility] Methadone Screen, Urine Negative NEGATIVE [facility] Methamphetamine, Urine Negative NEGATIVE [facility] Opiates, Urine Negative NEGATIVE [facility] Oxycodone Screen, Ur Negative NEGATIVE [facility] Phencyclidine, Urine Negative NEGATIVE [facility] Propoxyphene, Urine Negative NEGATIVE [facility] Tricyclic Antidepressants, Urine Negative NEGATIVE [facility] Comment on above: Drug screen results are to be used for medical purposes only. All positive results are unconfirmed. Testing for employment or legal uses should be sent to a reference laboratory for confirmation. [facility] TILT TABLE TESTon 01-26-2022 TILT TABLE TEST [address] [id number] TILT TABLE TEST PATIENT NAME: FABIEN PERAZA : 2000 MED REC NO: [id number] ROOM: ACCOUNT NO: [id number] ADMIT DATE: 01/25/2022 PROVIDER: Jade Soto MD [...] up with their primary care physician and/or package dye stand loader as previously scheduled. STUDY CONCLUSIONS: Abnormal head [...] MD CHASITY/DARCY_JEMMA Doc#: Unknown CC: Nick Brown, J[place]SE[place] KNITTER-VOLUNTEER SERVICES COORDINATOR [facility] Basic Metabolic Panelon 06-3 Anion gap [Moles/Vol] 11 mmol/L 9 - 17 mmol/L [facility] Calcium [Mass/Vol] 9.6 mg/dL 8.6 - 10.4 mg/dL [facility] Chloride [Moles/Vol] 104 mmol/L 98 - 107 mmol/L [facility] CO2 [Moles/Vol] 24 mmol/L 20 - 31 mmol/L [facility] Creatinine [Mass/Vol] 0.74 mg/dL 0.50 - 0.90 mg/dL [facility] GFR >60 >60 mL/min [facility] GFR Non- >60 >60 mL/min [facility] Glucose [Mass/Vol] 91 mg/dL 70 - 99 mg/dL [facility] Potassium [Moles/Vol] 4.0 mmol/L 3.7 - 5.3 mmol/L [facility] Sodium [Moles/Vol] 139 mmol/L 135 - 144 mmol/L [facility] Urea nitrogen (BldV) [Mass/Vol] 14 mg/dL 6 - 20 mg/dL [facility] Urea nitrogen/Creatinine (Bld) [Mass ratio] 19 [facility] Basic Metabolic Profon 01-13 (cont.) Normal [facility] Comment on above: Result Comment: Aver age GFR for 20-29 years old: 116 mL/min/1.73sq m Chronic Kidney Disease: <60 mL/min/1.73sq m Kidney failure: <15 mL/min/1.73sq m eGFR calculated using average adult body mass. Additional eGFR calculator available at: http://www.Pomogatel/multiple_crcl_2012.htm Performed By: #### B RIC, CBC #### [facility] [address] [place] [address] Information Technology Analyst: Artem Jones MD Anion gap [Moles/Vol] 11 mmol/L Normal - [facility] Comment on above: Performed By: #### B RIC, CBC #### [facility] [address] [place] [address] Information Technology Analyst: Artem Jones MD BUN/CRE Ratio 19 Normal - [facility] Comment on above: Performed By: #### B RIC, CBC #### [facility] [address] [place], [place] [id number] Information Technology Analyst: Artem Jones MD Calcium [Mass/Vol] 9.6 mg/dL Normal 8.6-10.4 [facility] Comment on above: Performed By: #### B MP, CBC #### [facility] [address] [place] [address] Information Technology Analyst: Artem Jones MD Chloride [Moles/Vol] 104 mmol/L Normal 98-[address] [facility] Comment on above: Performed By: #### B MP, CBC #### [facility] [address] [place] [address] Information Technology Analyst: Artem Jones MD CO2 [Moles/Vol] 24 mmol/L Normal 20-31 [place] Comment on above: Performed By: #### B MP, CBC #### [facility] [address] [place] [address] Information Technology Analyst: Artem Jones MD Creatinine [Mass/Vol] 0.74 mg/dL Normal 0.50-0.90 [facility] Comment on above: Performed By: #### B MP, CBC #### [facility] [address] [place] [address] Information Technology Analyst: Artem Jones MD GFR, Amer >60 Normal >60 [facility] Comment on above: Performed By: #### B MP, CBC #### [facility] [address] [place], [place] [id number] Information Technology Analyst: Artem Jones MD GFR,non Amer >60 Normal >[address] [facility] Comment on above: Performed By: #### B MP, CBC #### [facility] [address] [place], [place] [id number] Information Technology Analyst: Artem Jones MD Glucose [Mass/Vol] 91 mg/dL Normal 70-99 [facility] Comment on above: Performed By: #### B MP, CBC #### [facility] [address] [place], [place] [id number] Information Technology Analyst: Artem Jones MD Potassium [Moles/Vol] 4.0 mmol/L Normal 3.7-5.3 [facility] Comment on above: Performed By: #### B MP, CBC #### [facility] [address] [place], [place] [id number] Information Technology Analyst: Artem Jones MD Sodium [Moles/Vol] 139 mmol/L Normal 135-144 [facility] Comment on above: Performed By: #### B MP, CBC #### [address] [place], [place] [id number] Information Technology Analyst: Artem Jones MD Staging: Normal [facility] Comment on above: Result Comment: Stag e 1: Some kidney damage normal GFR Stage 2: Mild kidney damage GFR 60-89 Stage 3: Moderate kidney damage GFR 30-59 Stage 4: Severe kidney damage GFR 15-29 Stage 5: Severe kidney damage GFR <15 ESRD - chronic treatment by dialysis or transplant Performed By: #### B MP, CBC #### [address] [place], [place] [id number] Information Technology Analyst: Artem Jones MD Urea nitrogen [Mass/Vol] 14 mg/dL Normal 6-20 [facility] Comment on above: Performed By: #### B MP, CBC #### [address] [place], [place] [id number] Information Technology Analyst: Artem Jones MD CBCon 01-13-2022 Erythrocyte distribution width (RBC) [Ratio] 12.4 % Normal 11.8-14.4 [facility] Comment on above: Performed By: #### B MP, CBC #### [address] [place] [address] Information Technology Analyst: Artem Jones MD Hematocrit (Bld) [Volume fraction] 39.7 % Normal 36.3-47.1 [facility] Comment on above: Performed By: #### B MP, CBC #### [facility] [address] [place] [address] Information Technology Analyst: Artem Jones MD Hemoglobin (Bld) [Mass/Vol] 13.0 g/dL Normal 11.9-15.1 [facility] Comment on above: Performed By: #### B MP, CBC #### [address] [place] [address] Information Technology Analyst: Artem Jones MD MCH (RBC) [Entitic mass] 27.7 pg Normal 25.2-33.5 [facility] Comment on above: Performed By: #### B MP, CBC #### [address] [place] [address] Information Technology Analyst: Artem Jones MD MCHC (RBC) [Mass/Vol] 32.7 g/dL Normal 28.4-34.8 [facility] Comment on above: Performed By: #### B MP, CBC #### [address] [place] [address] Information Technology Analyst: Artem Jones MD MCV (RBC) [Entitic vol] 84.6 fL Normal 82.6-102.9 [facility] Comment on above: Performed By: #### B RIC, CBC #### [address] [place] [address] Information Technology Analyst: Artem Jones MD NRBC Automated 0.0 per 100 WBC Normal 0.0 [facility] Comment on above: Performed By: #### B MP, CBC #### [address] [place] [address] Information Technology Analyst: Artem Jones MD Platelet mean volume (Bld) [Entitic vol] 9.1 fL Normal 8.1-13.5 [facility] Comment on above: Performed By: #### B MP, CBC #### [facility] [address] [place] [address] Information Technology Analyst: Artem Jones MD Platelets (Bld) [#/Vol] 275 10*3/uL Normal 138-453 [facility] Comment on above: Performed By: #### B MP, CBC #### [facility] [address] [place] [address] Information Technology Analyst: Artem Jones MD RBC (Bld) [#/Vol] 4.69 10*6/uL Normal 3.95-5.11 [facility] Comment on above: Performed By: #### B MP, CBC #### [facility] [address] [place] [address] Information Technology Analyst: Artem Jones MD WBC (Bld) [#/Vol] 8.2 10*3/uL Normal 3.5-11.3 [facility] Comment on above: Performed By: #### B MP, CBC #### [facility] [address] [place] [address] Information Technology Analyst: Artem Jones MD Hematocrit (Bld) [Volume fraction] 39.7 % 36.3 - 47.1 % [facility] Hemoglobin (Bld) [Mass/Vol] 13.0 g/dL 11.9 - 15.1 g/dL [facility] MCH (RBC) [Entitic mass] 27.7 pg 25.2 - 33.5 pg [facility] MCHC (RBC) [Mass/Vol] 32.7 g/dL 28.4 - 34.8 g/dL [facility] MCV (RBC) [Entitic vol] 84.6 fL 82.6 - 102.9 fL [facility] NRBC Automated 0.0 0.0 per 100 WBC [facility] Platelet distribution width (Bld) [Ratio] 12.4 % 11.8 - 14.4 % [facility] Platelet mean volume (Bld) [Entitic vol] 9.1 fL 8.1 - 13.5 fL [facility] Platelets (Bld) [#/Vol] 275 10*3/uL [facility] RBC (Bld) [#/Vol] 4.69 10*6/uL 3.95 - 5.11 m/uL [facility] WBC (Bld) [#/Vol] 8.2 10*3/uL [facility] Laboratory - Chemistry and C hemistry - challengeon 01-13-2022 GFR/1.73 sq M.predicted MDRD (S/P/Bld) [Vol rate/Area] [facility] Comment on above: Average GFR for 20-2 9 years old: 116 mL/min/1.73sq m Chronic Kidney Disease: <60 mL/min/1.73sq m Kidney failure: <15 mL/min/1.73sq m eGFR calculated using average adult body mass. Additional eGFR calculator available at: http://www.Pomogatel/multiple_crcl_2012.htm Stage 1: Some kidney damage normal GFR Stage 2: Mild kidney damage GFR 60-89 Stage 3: Moderate kidney damage GFR 30-59 Stage 4: Severe kidney damage GFR 15-29 Stage 5: Severe kidney damage GFR <15 ESRD - chronic treatment by dialysis or transplant PROGRESSon 10-12-[address] [facility] [address] [facility] PROGRESSon 09-21-[address] [facility] [address] [facility] Vital Signs Date Time Vital Sign Value Performing Clinician Faci lity 09-26-2022 08:16-0400 Body temperature 98.1 [degF] Zak Bejarano MD Work Phone: [facility] 09-26-2022 08:16-0400 Diastolic blood pressure 80 mm[Hg] Zak Bejarano MD Work Phone: [facility] 09-26-2022 08:16-0400 Heart rate 81 /min Zak Bejarano MD Work Phone: [facility] 09-26-2022 08:16-0400 Respiratory rate 16 /min Zak Bejarano MD Work Phone: [facility] 09-26-2022 08:16-0400 Systolic blood pressure 130 mm[Hg] Zak Bejarano MD Work Phone: [facility] [employer] 09-25-2022 08:04-0400 SaO2% (BldA) [Mass fraction] 99 % Zak Bejarano MD Work Phone: [facility] [employer] 08-02-2022 18:01-0500 Body height 157.5 cm Pete Sol APRN Yanet CNAlison Work Phone: [facility] [employer] 08-02-2022 18:01-0500 Body mass index (BMI) [Ratio] 35.85 kg/m2 Pete Sol APRN Yanet CNAlison Work Phone: [facility] [employer] 08-02-2022 18:01-0500 Body weight 88.91 kg Pete Sol APRN Yanet CNAlison Work Phone: [facility] 08-02-2022 17:37-0500 Diastolic blood pressure 70 mm[Hg] Pete Sol APRN Yanet CNAlison Work Phone: [facility] 08-02-2022 17:37-0500 Heart rate 93 /min Pete Holt CNM Work Phone: [facility] [employer] 08-02-2022 17:37-0500 Respiratory rate 18 /min Pete Sol APRN Yanet CNAlison Work Phone: [facility] [employer] 08-02-2022 17:37-0500 Systolic blood pressure 118 mm[Hg] Pete Sol APRN Yanet CNAlison Work Phone: [facility] [employer] 08-02-2022 17:17-0500 Body temperature 97.9 [degF] Pete Sol APRN Yanet CNAlison Work Phone: [facility] [employer] 01-14-2020 10:40-0400 BMI (Body Mass Index) 30.2 kg/m2 [facility] Work Phone: 01-14-2020 10:40-0400 Body weight 74.84 kg [facility] Work Phone: 01-14-2020 10:400400 BSA (Body Surface Area) 1.76 m2 [facility] Work Phone: 01-14-2020 10:400400 Height 157.48 cm [facility] Work Phone: Encounters Encounter Date Encounter Type Care Provider Facility Start: 07-06-2023 End: 07-06-2023 ambulatory MELO CAROLE Not Available Start: 06-07-2023 End: 06-07-2023 ambulatory MELO CAROLE Not Available Start: 09-24-2022 End: 09-26-2022 Evaluation and management of inpatient Zak Bejarano MD Work Phone: [email or web address] Start: 09-14-2022 End: 09-15-2022 ambulatory NICK Sarita [facility]EEER [facility] Start: 09-14-2022 End: 09-14-2022 Subsequent hospital visit by physician Nick Brown APRN - VOLUNTEER SERVICES COORDINATOR Work Phone: [facility] [place] [facility] Comment on above: 36 weeks gestation o f Start: 09-14-2022 End: 09-14-2022 ambulatory [facility] Start: 09-14-2022 End: 09-14-2022 Subsequent hospital visit by physician Nick Brown APRN - VOLUNTEER SERVICES COORDINATOR Work Phone: [facility] Laboratory Comment on above: Elevated blood press ure affecting , antepartum Start: 09-08-2022 End: 09-08-2022 ambulatory ADITYA [facility] Start: 08-25-2022 End: 08-26-2022 ambulatory JACQUI [facility] Start: 08-25-2022 End: 08-25-2022 Subsequent hospital visit by physician Nick Brown APRN - VOLUNTEER SERVICES COORDINATOR Work Phone: [facility] [place] [facility] [employer] Comment on above: Encounter for superv ision of normal first in second trimester Start: 08-16-2022 End: 08-17-2022 ambulatory [facility] Start: 08-16-2022 End: 08-16-2022 Subsequent hospital visit by physician [facility] Echo Room [facility] Echocardiography Comment on above: Light headedness; POTS (postural orthostatic tachycardia syndrome); Abnormal tilt table test Light headedness; POTS (postural orthostatic tachycardia syndrome); Abnormal tilt table test; 29 weeks gestation of ; Chest pain, unspecified type Start: 08-02-2022 End: 08-02-2022 ambulatory [facility] Start: 08-02-2022 End: 08-02-2022 Subsequent hospital visit by physician Pete Sol APRN - [place] Work Phone: [facility] Delivery Start: 02-21-2022 End: 02-22-2022 ambulatory NICK [facility] Start: 02-21-2022 End: 02-21-2022 Subsequent hospital visit by physician Nick Brown APRN - [place] Work Phone: [facility] Laboratory Comment on above: Encounter for superv ision of normal , antepartum, unspecified ; Positive urine test Start: 01-25-2022 End: 01-26-2022 ambulatory [facility] Start: 01-25-2022 End: 01-25-2022 Subsequent hospital visit by physician [facility] Coating Machine Operator [facility] EKG Comment on above: Heart palpitations Start: 01-13-2022 End: 01-14-2022 ambulatory [facility] Start: 01-13-2022 End: 01-13-2022 Subsequent hospital visit by physician Nick Holt CNP Work Phone: [facility] Laboratory Comment on above: Heart palpitations Start: 03-15-2021 End: 03-15-2021 Patient encounter procedure Cari Toribio MD [facility] Laboratory Start: 03-15-2021 End: 03-15-2021 Subsequent hospital visit by physician Cari Toribio MD [facility] Laboratory Comment on above: Women's annual routi ne gynecological examination Start: 01-14-2020 End: 01-14-2020 Patient encounter procedure Meri Silva Work Phone: [facility] Work Phone: Start: 01-14-2020 End: 01-14-2020 Telemedicine consultation with patient Radha Cuevas Work Phone: [facility] Work Phone: Start: 10-12-2017 Ambulatory [facility] Start: 09-21-2017 Ambulatory [facility] Procedures Date Procedure Procedure Detail Performing [...] End: 09-14-2022 Comprehensive metabolic panel Elizabeth Galvez JERSEY KNITTER - CNM Work Phone: Start: 08-25-[address] gtt 3 specimens Jacqui Stiven Russell JERSEY KNITTER - CNM Work Phone: Start: 08-16-2022 Echo tthrc r-t 2d w/wom-mode compl spec&colr d Jade Soto MD Work Phone: Start: 08-02-2022 Urnls dip stick/tabl et rgnt auto w/o microscopy Pete Sol JERSEY KNITTER - CNM Work Phone: Start: 02-21-2022 Antibody screen Nick Brown JERSEY KNITTER - [facility] Work Phone: Start: 02-21-2022 End: 02-21-2022 Antibody hiv-1&hiv-2 single result Pete Sol [facility] Work Phone: Start: 02-21-2022 Drug screen, qualitate/multi Pete Sol [facility] Work Phone: Start: 01-13-2022 Basic metabolic pane l calcium total Nick Stein Stephanie [facility] [employer] [facility] Work Phone: Start: 03-15-2021 Microscopic observat ion [Identifier] in Cervix by Cyto stain Nick Stephanie [facility] [employer] [facility] Work Phone: Start: 01-14-2020 MIGRAINE HEADACHE Gertrude e Faith NEGATED: Highlighted row has not occurred!Start: 01-14-2020 reported prior surgical / procedural history Radha Faith Plan of Treatment Date Care Activity Detail Author Start: 03-15-2024 Screening for malignant neoplasm of cervix Pap smear [email or web address] [facility] Start: 05-09-2023 [facility] Start: 05-09-2023 Influenza vaccination Flu vaccine (#1) [email or web address] [facility] Comment on above: Postponed from 02/14/2022 (Patient Refus ed) Start: 02-21-2023 Screening for Chlamydia trachomatis Chlamydia/GC screen [email or web address] [facility] Start: 02-03-2023 Depression Screen Depression Screen [facility] Start: 01-13-2023 COVID-19 Vaccine (#1) COVID-19 Vaccine (#1) [facility] Comment on above: Postponed from 05/17/2000 (Patient Refus ed) Start: 01-13-2023 COVID-19 Vaccine (1) COVID-19 Vaccine (1) [email or web address] [facility] Comment on above: Postponed from 11/14/2004 (Patient Refus ed) Start: 01-13-2023 Depression Screen [facility] Start: 01-13-2023 DTaP/Tdap/Td vaccine (1 - Tdap) DTaP/Tdap/Td vaccine (1 - Tdap) [facility] Comment on above: Postponed from 11/14/2018 (Patient Refus ed) Start: 01-13-2023 Hepatitis C screening Hepatitis C screen [facility] Comment on above: Postponed from 11/14/2017 (Patient Refus ed) Start: 01-13-2023 HIV screening HIV screen [facility] Comment on above: Postponed from 11/14/2014 (Patient Refus ed) Start: 01-13-2023 HPV vaccine (1 - 2-dose series) HPV vaccine (1 - 2-dose series) [facility] Comment on above: Postponed from 11/14/2010 (Patient Refus ed) Start: 11-30-2022 End: 11-30-2022 Patient encounter procedure 11/30/2022 Office Visit Cardiology Samantha Mora PA-C [address] [place] [address] [id number] [facility] Start: 10-31-2022 End: 10-31-2022 ambulatory 10/31/2022 Visit Obstetrics and Gynecology Jacqui Russell, JERSEY KNITTER - CNM [address] [facility] [place] [address] [facility] Start: 09-21-2022 End: 09-21-2022 Patient encounter procedure 09/21/2022 Office Visit Cardiology Samantha Mora PA-C [address] [place] [id number] [facility] Start: 09-20-2022 End: 09-20-2022 Patient encounter procedure 09/20/2022 Routine Obstetrics and Gynecology Jacqui Russell, JERSEY KNITTER - CNM [address] [facility] [place] [address] [facility] Start: 09-14-2022 End: 09-14-2022 Patient encounter procedure 09/14/2022 Routine Obstetrics and Gynecology Elizabeth Galvez, JERSEY KNITTER - CNM [address] [address] [facility] Start: 09-08-2022 End: 09-08-2022 Patient encounter procedure 09/08/2022 Routine Obstetrics and Gynecology Aditya Galvan, JERSE[employer] KNITTER - [employer] [address] [address] [facility] Start: 09-08-2022 End: 09-08-2022 Professional / ancillary services management 09/08/2022 Ancillary Procedure Obstetrics and Gynecology [facility] Start: 08-25-2022 End: 08-25-2022 Patient encounter procedure 08/25/2022 Routine Obstetrics and Gynecology Jacqui Russell, JERSEY KNITTER - CNM [address] [place] [address] [facility] Start: 08-16-2022 End: 08-16-2022 Patient encounter procedure [facility] Start: 08-10-2022 End: 08-10-2022 Patient encounter procedure 08/10/2022 Routine Obstetrics and Gynecology Arin Sykes, DO [address] [place] [address] [facility] Start: 08-10-2022 End: 08-10-2022 Professional / ancillary services management 08/10/2022 Ancillary Procedure Obstetrics and Gynecology [facility] Start: 08-09-2022 End: 08-09-2022 Patient encounter procedure 08/09/2022 Office Visit Primary Care Nick Brown, JERSEY KNITTER - VOLUNTEER SERVICES COORDINATOR [address] [place] [address] [facility] [place] Start: 08-03-2022 End: 08-03-2022 Patient encounter procedure 08/03/2022 Routine Obstetrics and Gynecology Elizabeth Galvez, JERSEY KNITTER - CNM [address] [place] [address] [facility] Start: 05-09-2022 End: 05-09-2022 Patient encounter procedure 05/09/2022 Office Visit Primary Care Nick Brown, JERSEY KNITTER - VOLUNTEER SERVICES COORDINATOR [address] [place] [address] [facility] Start: 04-04-2022 End: 04-04-2022 Patient encounter procedure 04/04/2022 Routine Obstetrics and Gynecology Pete Sol, JERSEY KNITTER - CNM [address] [facility] [address] [place] [address] [facility] Start: 03-17-2022 Influenza vaccination [facility] Start: 02-03-2022 End: 02-03-2022 Patient encounter procedure 02/03/2022 Office Visit Primary Care Nick Brown, JERSEY KNITTER - VOLUNTEER SERVICES COORDINATOR [address] [place] [address] [facility] Start: 03-17-2021 Influenza vaccination Flu vaccine (#1) [facility] Work Phone: Start: 11-14-2020 Screening for malignant neoplasm of cervix Cervical cancer screen [facility] Work Phone: Start: 02-13-2020 _SARS-CoV-2 COVID19 test [facility] Work Phone: Start: 01-14-[address] up Testing [facility] Work Phone: Start: 11-14-2018 DTaP/Tdap/Td vaccine (1 - Tdap) DTaP/Tdap/Td vaccine (1 - Tdap) [facility] Work Phone: Start: 2015 Screening for Chlamydia trachomatis Chlamydia screen [facility] Start: 11-14-2014 HIV screening HIV screen [employer] Phone: Start: 2011 COVID-19 Vaccine (1) COVID-19 Vaccine (1) [employer] Phone: Start: 11-14-2010 HPV vaccine (1 - 2-dose series) HPV vaccine (1 - 2-dose series) [employer] Phone: Start: 11-14-2000 Varicella vaccine (1 of 2 - 2-dose childhood series) Varicella vaccine (1 of 2 - 2-dose childhood series) [employer] Phone: Start: 1999 Hepatitis C screening Hepatitis C screen [employer] Phone: End: 08-02-2022 Bacteria identified in Urine by Culture Urine culture Microbiology Routine One Time for 1 Occurrences starting 08/02/2022 until 08/02/2022 [employer] Phone: Comment on above: One Time for 1 Occurrences starting 07/17 until 08/02/2022 End: 09-24-2022 Bacteria identified in Urine by Culture Urine culture Microbiology Routine One Time for 1 Occurrences starting 09/24/2022 until 09/24/2022 [employer] Phone: Comment on above: One Time for 1 Occurrences starting 09/14 until 09/24/2022 End: 02-21-2022 C.trachomatis N.gonorrhoeae DNA, Urine [employer] Phone: Comment on above: 1 Occurrences starting 02/21/2022 until 02/21/2022 End: 08-16-2022 Continuous cardiac monitoring, >2 up to 14 days Continuous cardiac monitoring, >2 up to 14 days Cardiac Services Routine Light headedness POTS (postural orthostatic tachycardia syndrome) Abnormal tilt table test 29 weeks gestation of Chest pain, unspecified type 1 Occurrences starting 08/16/2022 until 08/16/2022 [employer] Phone: Comment on above: 1 Occurrences starting 08/16/2022 until 08/16/2022 Continuous pulse oximetry Pulse oximetry, continuous while on epidural Respiratory Care Routine Every 4hr until discontinued starting 09/25/2022 [employer] Phone: Comment on above: Every 4hr until discontinued starting End: 09-14-2022 Culture, Strep B Screen, Vaginal/Rectal [employer] Phone: Comment on above: 1 Occurrences starting 09/14/2022 until 09/14/2022 End: 02-21-2022 Culture, Urine [employer] Phone: Comment on above: 1 Occurrences starting 02/21/2022 until 02/21/2022 End: 03-15-2021 Cytopathology procedure, preparation of smear, genital source [facility] Lab Routine Women's annual routine gynecological examination 1 Occurrences starting 03/15/2021 until 03/15/2021 [employer] Phone: Comment on above: 1 Occurrences starting 03/15/2021 until 03/15/2021 nonstress test nonst ress test OB Routine Daily until discontinued starting 08/03/2022 [employer] Phone: Comment on above: Daily until discontinued starting 2022 nonstress test nonst ress test OB Routine Daily until discontinued starting 09/25/2022 [employer] Phone: Comment on above: Daily until discontinued starting 2022 Nonrebreather mask oxygen Nonrebreather mask oxygen Respiratory Care Routine As directed - RT (PRN) until discontinued starting 08/02/2022 [employer] Phone: Comment on above: As directed - RT (PRN) until discontinue d starting 08/02/2022 Nonrebreather mask oxygen Nonrebreather mask oxygen Respiratory Care Routine As directed - RT (PRN) until discontinued starting 09/24/2022 [employer] Phone: Comment on above: As directed - RT (PRN) until discontinue d starting 09/24/2022 Nonrebreather mask oxygen Nonrebreather mask oxygen Respiratory Care Routine As directed - RT (PRN) until discontinued starting 09/24/2022 [facility] Phone: Comment on above: As directed - RT (PRN) until discontinue d starting 09/24/2022 Oxygen therapy [Minimum Data Set] Initiate Oxygen Therapy Protocol while on epidural Respiratory Care Routine Daily until discontinued starting 09/24/2022 [facility] Phone: Comment on above: Daily until discontinued starting 2022 End: 09-25-2022 SURGICAL PATHOLOGY REPORT SURGICAL PATHOLOGY REPORT Lab Routine Once for 1 Occurrences starting 09/25/2022 until 09/25/2022 [facility] Phone: Comment on above: Once for 1 Occurrences starting 09/26/19 until 09/25/2022 End: 08-02-2022 SVE SVE Point of Care Testing Routine One Time for 1 Occurrences starting 08/02/2022 until 08/02/2022 [facility] Phone: Comment on above: One Time for 1 Occurrences starting 07/17 until 08/02/2022 End: 09-24-2022 SVE SVE Point of Care Testing Routine One Time for 1 Occurrences starting 09/24/2022 until 09/24/2022 [facility] Phone: Comment on above: One Time for 1 Occurrences starting 09/14 until 09/24/2022 Immunizations Immunization Date Immunization Notes Care Provider [facility] 09-25-2022 diphtheria, tetanus toxoids and acellular pertussis vaccine, unspecified formulation Zak Bejarano MD Work Phone: [facility] Phone: Payers Date Payer Category Payer Unknown [id number] [id number] 2014 Unknown [id number]. [id number] 1999 Unknown [id number] 2.16.8 40.1.019095.3.579.2.173 1999 Unknown [id number] 2.16.8 40.1.475512.3.579.2.173 1999 Unknown [id number] 2.16.8 40.1.288940.3.579.2.173 1999 Unknown [id number] 2.16.8 40.1.085678.3.579.2.173 1999 Unknown [id number] 2.16.8 40.1.969054.3.579.2.173 1999 Unknown [id number] 2.16.8 40.1.090609.3.579.2.173 1999 Unknown [id number] 2.16.8 40.1.244047.3.579.2.173 1999 Unknown [id number] 2.16.8 40.1.256491.3.579.2.173 1999 Unknown [id number] 2.16.8 40.1.338982.3.579.2.173 1999 Unknown [id number] 2.16.8 40.1.798169.3.579.2.173 1999 Unknown [id number] 2.16.840 .1.876278.3.579.2.1259 1999 Unknown [id number] 2.16.840 .1.076076.3.579.2.1259 1999 Unknown [id number] 2.16. 840.1.920217.3.579.2.175 1999 Unknown [id number] 2.16. 840.1.527805.3.579.2.175 1999 Unknown [id number] 2.16. 840.1.114937.3.579.2.175 1999 Unknown [id number] 2.16. 840.1.257420.3.579.2.175 Self-pay [id number] 2.16.840 .1.261178.3.140.1.34645.5.4 Social History Date Type Detail Facility Assertion Gender identity finding (finding) [facility] Work Phone: Assertion Finding of sexua l orientation (finding) [facility] Work Phone: Tobacco smoking status Unknown if ever smoked [facility] Work Phone: Start: 05-18-2012 End: 03-15-2021 Tobacco smoking status FLIS Never smoker [employer] Phone: Start: 05-18-2012 End: 03-15-2021 Tobacco use and exposure Never used [employer] Start: 03-15-2021 End: 09-25-2022 Alcohol intake Current non-drinker of alcohol (finding) [employer] Phone: Start: 1999 [facility] Start: 01-13-2022 History SDOH Financial 5 [facility] [employer] Phone: Start: 01-13-2022 History SDOH Food Worry 1 [facility] [employer] Phone: Start: 01-19-2022 JUAN MATTHEWS S [employer] Phone: Start: 07-23-2022 End: 09-24-2022 Exposure to SARS-CoV-2 (event) Not sure [facility] Phone: NEGATED: Highlighted row Assertion Current drinker of alcohol (finding) [facility] Work Phone: NEGATED: Highlighted row Assertion Finding relating to drug misuse behavior (finding) [facility] Work Phone: NEGATED: Highlighted row Assertion Exposure to pollution (event) [facility] Work Phone: NEGATED: Highlighted row Assertion Tobacco user (finding) [facility] Work Phone: Clinical Notes 01-25-2022 to 09-26-2022 [...] Follow-up with your OB doctor as specified. [facility] OB Department phone: Dr. Asya Gruber CN Dr. Skye Sol CN [address] [facility] [address] [facility]e [facility] CN [address] [facility] [id number] [phone] Kenya Tinajero, MSN, JERSEY KNITTER, CNM [facility] [address] [facility] [address] [address] Shields [address] [facility] [id number] Pete Recio CNM [address] [place] [address] [place] [address] Zenaida Grant CNM [address] [place] [address] [place] [address] [phone] DIET Eat a well balanced diet focusing on foods high in fiber and protein. Drink plenty of fluids especially water. To avoid constipation you may take a mild stool softener as recommended by your doctor or fish packer. ACTIVITY Gradually increase your activity. Resume exercise regimen only after advice by your doctor or fish packer. Avoid lifting anything heavier than a gallon of milk for SIX weeks. Avoid driving until your doctor or fish packer has given their approval. Rise slowly from [...] of harming yourself or your . If infant will not stop crying, contact another adult [...] medications as recommended by your doctor or fish packer for pain If you develop a warm, red, tender area on your breast or develop a fever contact your OB provider. For moms: If you become engorged, feeding may be more difficult or painful for 1-2 days. You may find it helpful to hand express some milk so that the infant can latch on more easily. While , continue to take your vitamins as directed by your doctor or fish packer. Refer to the booklet in the folder/binder for more information. If you feel you need more assistance or have questions, please call Stacey Rodriguez IBCLC, corporate travel consultant, at or the OB department to [...] your calf. documented in this encounter [facility] [employer] Work Phone: 09-26-2022 Hospital course Narrative Obstetrical [...] NONREACTIVE Final HIV: No results found for: TQU90GH Results for orders placed or performed during the hospital encounter of 09/24/22 Urinalysis Result Value Ref Range Color, UA Yellow Yellow Turbidity UA Clear Clear Glucose, Ur NEGATIVE NEGATIVE Bilirubin Urine NEGATIVE NEGATIVE Ketones, Urine TRACE (A) NEGATIVE Specific [place], UA 1.010 1.010 - 1.020 Urine Hgb [...] # 2.52 1.10 - 3.70 k/uL Absolute [place] # 0.80 0.10 - 1.20 k/uL Absolute [...] Range Expiration Date 09/27/2022,2359 Arm Band Number [id number] ABO/Rh A POSITIVE Antibody Screen NEGATIVE complications: [...] Your Medications These medications were sent to [facility], [place] - [address] - P [phone] - F [phone] [address] [facility] [address], [facility] [address] docusate 100 MG Caps ibuprofen 800 MG tablet Admit date: 09/24/2022 3:00 PM Discharge Date: 09/26/2022 Discharged to: Home in stable condition Plan: Follow up in 6 week(s) for post visit, blood pressure check, breast feeding check, and post depression check documented in this encounter [facility] [employer] Phone: 09-26-2022 History of Presen t illness [...] rate: Baseline Heart Rate: 125 Accelerations: present Nursing Home Variability: moderate Decelerations: absent Contraction frequency: 2 minutes Position: Cephalic Membranes: ROM clear fluid Cervix: Dilation: 6-7 cm Effacement: 80 Station: -1 Consistency: soft Position: mid ASSESSMENT & PLAN: Active labor. S/P AROM. Patient progressing continue current management Provider at bedside. Admission orders received from Dr Bejarano. Amnioswab negative. documented in this encounter [facility] Phone: 08-16-2022 History of Presen t illness Narrative Explained policies and procedure of an echocardiogram/Doppler study. Patient instructed on extended panel monitor indications and use. Diary sent with patient. 5-7 days documented in this encounter [facility] Phone: 08-02-2022 History of Presen t illness [...] urine sample. documented in this encounter [facility] [employer] Phone: 08-02-2022 Hospital Discharg e instructions Wendy Choudhary RN - 08/02/2022 6:20 PM EST OUTPATIENT DISCHARGE Dr Skye Russell [facility] [address] [facility] [address] [phone] ACTIVITY LIMITATIONS: ( X )Up and about [...] AND DELIVERY . documented in this encounter [facility] Phone: 01-25-2022 History of Presen t illness Narrative Explained Holter monitor and diary. documented in this encounter [facility] Phone: Evaluation note Diagnosis Women's annual routine gynecological examination documented in this encounter [employer] Phone: evaluation note* Diagnosis Heart palpitations Palpitations documented in this encounter [facility] Phone: evaluation note* Diagnosis Heart palpitations Palpitations documented in this encounter [facility] Phone: evaluation note* Diagnosis Encounter for supervision of normal , antepartum, unspecified Positive urine test documented in this encounter [facility] Phone: evaluation note* Diagnosis contractions- Primary Unspecified abnormality of labor, antepartum documented in this encounter [facility] Phone: evaluation note* Diagnosis Light headedness Dizziness and giddiness POTS (postural orthostatic tachycardia syndrome) Tachycardia, unspecified Abnormal tilt table test Other nonspecific abnormal result of function study of brain and central nervous system documented in this encounter [facility] Phone: evaluation note* Diagnosis Light headedness Dizziness and giddiness POTS (postural orthostatic tachycardia syndrome) Tachycardia, unspecified Abnormal tilt table test Other nonspecific abnormal result of function study of brain and central nervous system 29 weeks gestation of state, incidental Chest pain, unspecified type documented in this encounter [facility] Phone: evaluation note* Diagnosis Encounter for supervision of normal first in second trimester Supervision of normal first documented in this encounter [facility] Phone: evaluotneo note* Diagnosis 36 weeks gestation of state, incidental documented in this encounter [facility] Phone: evaluation note* Diagnosis Elevated blood pressure affecting , antepartum documented in this encounter [facility] Phone: evaluation note* Diagnosis Elevated blood pressure affecting , antepartum documented in this encounter [facility] Phone: evalczwutj note* Diagnosis (spontaneous vaginal delivery)- Primary Normal delivery Rupture of membranes with delay of delivery Term documented in this encounter [facility] Phone: Summary Purpose Family History No Family History Records Found Description Last Updated Maternal history of family history of is chemic heart disease 01/14/2020 Paternal history of family history of is chemic heart disease 01/14/2020 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s No Advanced Directives Records FoundDocuments on File Type Date Recorded Patient Kennel Assistant Expl anation ACP-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 ACP-Power of Filling And Packing Supervisor Documents on File Type Date Recorded Patient Kennel Assistant Expl anation ACP-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 ACP-Power of Filling And Packing Supervisor Latest Code Status on File Code Status [...] Monitor 48 Hour Nick Brown APRN - VOLUNTEER SERVICES COORDINATOR [address] [place] [address] Referral ID Status Reason Start Date Expiration Date Visits Re quested Visits Authorized [id number] Closed 01/13/2022 01/13/2023 1 1 Specialty Diagnoses / Procedures Referred By Contac t Referred To Contact Cardiology Diagnoses Light headedness POTS (postural orthostatic tachycardia syndrome) Abnormal tilt table test Procedures Echo 2D w doppler w color complete Jade Soto MD [address] [place], [place] [id number] Referral ID Status Reason Start Date Expiration Date Visits Re quested Visits Authorized [id number] Closed 08/04/2022 08/10/2023 1 1 Specialty Diagnoses / Procedures Referred By Contac t Referred To Contact Diagnoses Light headedness POTS (postural orthostatic tachycardia syndrome) Abnormal tilt table test 29 weeks gestation of Chest pain, unspecified type Procedures Continuous cardiac monitoring, >2 up to 14 days Jade Soto MD [address] [place] [id number] Referral ID Status Reason Start Date Expiration Date Visits Re quested Visits Authorized [id number] Closed 07/27/2022 07/27/2023 1 1 Assessments Findings Encounter Date Body mass index Telemedicine with Radha Saleem BULK DRIVER 01/14/2020 Exposure to a viral disease Telemedicine with Rachel Cuevas VOLUNTEER SERVICES COORDINATOR 01/14/2020 Instructions Instructions not supported for this [...] DATE CREATED AUTHOR AUTHOR'S ORGANIZ ATION 09/28/2022 [facility] DATE CREATED AUTHOR AUTHOR'S ORGANIZ ATION 07/07/2023 [facility] EPIC DATE CREATED AUTHOR AUTHOR'S ORGANIZ ATION 07/08/2023 [facility] Evaluations & Outcomes (unre cognized section and content) Includes: Evaluations & Outcomes for active GoalsNo Outcomes Recorded Includes: Evaluations & Outcomes for active GoalsNo Outcomes Recorded Care Teams (unrecognized sec tion and content) Assistant Service Manager Relationship Specialty Start Date End Date Nick Brown APRN - VOLUNTEER SERVICES COORDINATOR [address] [place] [address] PCP - General Certified Nurse 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 01/13/22 Assistant Service Manager Relationship Specialty Start Date End Date Nick Brown APRN - VOLUNTEER SERVICES COORDINATOR [address] [place] [address] PCP - General Certified Nurse 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 01/13/22 Assistant Service Manager Relationship Specialty Start Date End Date Nick Brown JERSEY KNITTER - VOLUNTEER SERVICES COORDINATOR [address] [place] [address] PCP - General Certified Nurse 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 01/13/22 Assistant Service Manager Relationship Specialty Start Date End Date Nick Brown APRN - VOLUNTEER SERVICES COORDINATOR [address] [place] [address] PCP - General Certified Nurse 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 01/13/22 Assistant Service Manager Relationship Specialty Start Date End Date Nick Brown JERSEY KNITTER - VOLUNTEER SERVICES COORDINATOR [address] [place] [address] PCP - General Certified Nurse 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 01/13/22 Assistant Service Manager Relationship Specialty Start Date End Date Nick Brown APRN - VOLUNTEER SERVICES COORDINATOR [address] [place] [phone] PCP - General Certified Nurse 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 01/13/22 Assistant Service Manager Relationship Specialty Start Date End Date Nick Brown APRN - VOLUNTEER SERVICES COORDINATOR [address] [place] [phone] PCP - General Certified Nurse 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 01/13/22 Assistant Service Manager Relationship Specialty Start Date End Date Nick Brown APRN - VOLUNTEER SERVICES COORDINATOR [address] [place] [phone] PCP - General Certified Nurse 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 01/13/22 Assistant Service Manager Relationship Specialty Start Date End Date Nick Brown APRN - VOLUNTEER SERVICES COORDINATOR [address] [place] [phone] PCP - General Certified Nurse 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 01/13/22 Assistant Service Manager Relationship Specialty Start Date End Date Nick Brown APRN - VOLUNTEER SERVICES COORDINATOR [address] [place] [phone] PCP - General Certified Nurse 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 01/13/22 Reason for Visit (unrecogniz ed section and content) Specialty Diagnoses / Procedures Referred By Nii garrido Referred To Contact Diagnoses Heart palpitations Procedures Holter Monitor 48 Hour Nick Brown JERSEY KNITTER - VOLUNTEER SERVICES COORDINATOR [address] [place] [address] Referral ID Status Reason Start Date Expiration Date Visits Re quested Visits Authorized [id number] Closed 01/13/2022 01/13/2023 1 1 Reason Comments Contractions Specialty Diagnoses / Procedures Referred By Nii t Referred To Contact Cardiology Diagnoses Light headedness POTS (postural orthostatic tachycardia syndrome) Abnormal tilt table test Procedures Echo 2D w doppler w color complete Jade Soto MD [address] [place] [address] Referral ID Status Reason Start Date Expiration Date Visits Re quested Visits Authorized [id number] Closed 08/04/2022 08/10/2023 1 1 Specialty Diagnoses / Procedures Referred By Nii garrido Referred To Contact Diagnoses Light headedness POTS (postural orthostatic tachycardia syndrome) Abnormal tilt table test 29 weeks gestation of Chest pain, unspecified type Procedures Continuous cardiac monitoring, >2 up to 14 days Jade Soto MD [address] [place] [id number] Referral ID Status Reason Start Date Expiration Date Visits Re quested Visits Authorized [id number] Closed 07/27/2022 07/27/2023 1 1 Reason Comments [...] mL/lumen, 1045 (Due)2100 (Due) 0900 (Due)2100 (Due) mbbvnht-nqbded-ngdbr pertussis (BOOSTRIX) injection 0.5 mL 0.5 mL, [...] automatically changed])191 (Rate/Dose Change - Provider: Toya aDvid RN)1917 (Rate/Dose Change - Provider: Toya David [...] every 2-3 minutes with cervical changes or [place] units (MVU) greater than 200 in a [...] BE BASED ON THE PRIMARY CLINICAL RECORDS. [email or web address] provides no warranty or guarantee of the accuracy or completeness of information in this document.
[2023-08-14 09:10] LABS: Age Gdln ACOG Testing Note (.); IGP, rfx Aptima HPV ASCU Note (.)
== END 2023-08-09 20:03 | disposition home or self-care (01) ==
LOC: LAB 20:02
PROVIDERS: Visit Provider Physician Assistant
DX: Z01.419 Encounter for gynecological examination (general) (routine) without abnormal findings (principal)
CPT/HCPCS: G0145

== ENCOUNTER 2023-09-07 08:57 | Outpatient (OUT) | payer OTHER, BC, SELFPAY ==
--- OUTSIDE RECORDS SUMMARY | 2023-09-07 09:08 | XMS_ITS | CCD ---
Author Name Unknown Address [address] [place] [address] Organization [facility] Care Team Providers Care Cafeteria Table Attendant Name Role Phone ROJAS, WICHO S Unavailable Unavailable ROJAS, WICHO S Unavailable Unavailable ROJAS, WICHO S Unavailable Unavailable ROJAS, WICHO S Unavailable Unavailable ROJSA, WICHO S Unavailable Unavailable ROJAS, WICHO S Unavailable Unavailable Radha Cuevas Primary Care Provider Catarino [place], Cari Smith Primary Care Provider Unav ailable Stephanie BODY JOINER - PERIOPERATIVE ASSISTANT, Nick Stein Primary Care Provid er Stephanie BODY JOINER - PERIOPERATIVE ASSISTANT, Nick Stein Primary Care Provid er Stephanie BODY JOINER - PERIOPERATIVE ASSISTANT, Nick Stein Primary Care Provid er NICK BROWN Primary Care Unavailable ZAK BEJARANO Admitting Unavailable ZAK BEJARANO Attending Unavailable STEPHANIE, NICK Stein Primary Care Unavailable PETE SOL Attending Unavailabl e PETE SOL Admitting Unavailabl e NICK BROWN Primary Care Unavailable LEONOR, JUSTEEN Referring Unavailable STEPHANIE, NICK Stein Primary Care Unavailable JADE SOTO Referring Unavailable STEPHANIE, NICK Stein Primary Care Unavailable STEPHANIE, NICK Stein Referring Unavailable STEPHANIE, NICK Stein Primary Care Unavailable STEPHANIE, NICK Stein Referring Unavailable STEPHANIE, NICK L Primary Care Unavailable STEPHANIE, NICK Stein Referring Unavailable STEPHANIE, NICK Sarita Primary Care Unavailable STEPHANIE, NICK Stein Referring Unavailable STEPHANIE, NICK Stein Primary Care Unavailable PETE SOL Referring Unavailabl e STEPHANIE, NICK Stein Primary Care Unavailable BRUJADE HERNADEZ Referring Unavailable STEPHANIE, NICK Stein Primary Care Unavailable LEONOR, JUSTEEN Referring Unavailable JACQUI RUSSELL Referring Unavailable STEPHANIE, NICK Stein Primary Care Unavailable STEPHANIE, NICK Stein Primary Care Unavailable LEONOR, JUSTEEN Referring Unavailable ADITYA GALVAN Referring Unavailable STEPHANIE, NICK Stein Primary Care Unavailable REINALDO ARRIETA Attending Unavailable CAROLE, MELO Attending Unavailable Medications Current Medications Medication Drug Class(es) [...] oral tablet (1 source) Opioid Agonist Start: 09-25-2022 oxyCODONE (NUPUR ICODONE) immediate release tablet 5 [...] Episodic Unclassified (1 source) Hip Pain / [id number]() Onset: 10-12-2017 Past or Other Problems Problem [...] Results Test Name Value Interpretation Reference Range [facility] Surgical Pathologyon 023 Surgical Pathology (NOTE) -- Diagnosis -- PLACENTA, DELIVERED: -THIRD TRIMESTER PLACENTA WITH THREE-VESSEL CORD WITH FOCAL MINIMAL ACUTE INFLAMMATION OF UMBILICAL VEIN. -UNREMARKABLE MEMBRANES. -PLACENTAL DISC WITH FOCAL FIBROSIS AND ORGANIZING FIBRIN AT MATERNAL SURFACE AND ADHERENT BLOOD CLOT TO MATERNAL SURFACE. Atrem Jones M.D. Electronically Signed Out [email or web address]/27/2022 Clinical Information Pre-op Diagnosis: CAN x 1, CORD AROUND BODY, FOCAL ABRUPTION NOTED BY PHYSICIAN Operative Findings: PLACENTA tm Source of Specimen A: PLACENTA Gross Description FABEIN PERAZA, PLACENTA Placenta with attached membranes and [...] CONSULTATION Patient Name: FABIEN PERAZA [facility] Rec: [id number] Path Number: [id number] [facility] ANATOMIC PATHOLOG[facility] [address] [place] [phone] [facility] Comment on above: Performed By: #### U CGP #### [employer] [address] [place] [address] [employer] Specialist: Diego Bashir MD Type + Screenon 09-25-2022 Type + Screen Sample Expiration 09/27/2022,2359 Arm Band Number [id number] ABO/Rh(D) A POSITIVE Antibody Screen NEGATIVE [facility] Comment on above: Performed By: #### U CGP #### [employer] [address] [place] [address] [employer] Specialist: Diego Bashir MD CBC with Auto Differentialon 09-24-2022 Absolute Eos # 0.08 [facility] [employer] Absolute Immature Granulocyte 0.11 [facility] Absolute Lymph # 2.52 [facility] [employer] Absolute [place] # 0.80 [facility] Basophils (Bld) [#/Vol] 0.05 10*3/uL [facility] Basophils/100 WBC (Bld) 1 % 0 - 2 % [facility] Eosinophils/100 WBC (Bld) 1 % 1 - 4 % [facility] Hematocrit (Bld) [Volume fraction] 31.9 % Low 36.3 - 47.1 % [facility] Hemoglobin (Bld) [Mass/Vol] 10.5 g/dL Low 11.9 - 15.1 g/dL [facility] Immature granulocytes/100 WBC (Bld) 1 % High 0 [facility] Interpretation and review of laboratory results Abnormal [facility] Lymphocytes/100 WBC (Bld) 25 % 24 - 43 % [facility] MCH (RBC) [Entitic mass] 25.1 pg Low 25.2 - 33.5 pg [facility] MCHC (RBC) [Mass/Vol] 32.9 g/dL 28.4 - 34.8 g/dL [facility] MCV (RBC) [Entitic vol] 76.3 fL Low 82.6 - 102.9 fL [facility] Monocytes/100 WBC (Bld) 8 % 3 - 12 % [facility] NRBC Automated 0.0 0.0 per 100 WBC [facility] Platelet distribution width (Bld) [Ratio] 14.7 % High 11.8 - 14.4 % [facility] Platelet mean volume (Bld) [Entitic vol] 8.7 fL 8.1 - 13.5 fL [facility] Platelets (Bld) [#/Vol] 298 10*3/uL [facility] RBC (Bld) [#/Vol] 4.18 10*6/uL 3.95 - 5.11 m/uL [facility] Segmented neutrophils/100 WBC (Bld) 64 % 36 - 65 % [facility] Segs Absolute 6.71 [facility] WBC (Bld) [#/Vol] 10.3 10*3/uL [facility] CBC with Diffon 09-24-2022 Abs. Basophil 0.05 k/uL Normal 0.00-0.20 [facility] Comment on above: Performed By: #### U CGP #### [facility] [employer] [address] [place], [place] [address] [employer] Specialist: Diego Bashir MD Abs.Imm.Granulocyte 0.11 k/uL Normal 0.00-0.30 [facility] Comment on above: Performed By: #### U CGP #### [address] [address] [employer] Specialist: Diego Bashir MD Abs.Neutrophil (Seg) 6.71 k/uL Normal 1.50-8.10 [facility] Comment on above: Performed By: #### U CGP #### [address] [address] [employer] Specialist: Diego Bashir MD Basophils/100 WBC (Bld) 1 % Normal 0-2 [facility] Comment on above: Performed By: #### U CGP #### [address] [address] [employer] Specialist: Diego Bashir MD Eosinophils (Bld) [#/Vol] 0.08 10*3/uL Normal 0.00-0.44 [facility] Comment on above: Performed By: #### U CGP #### [address] [address] [employer] Specialist: Diego Bashir MD Eosinophils/100 WBC (Bld) 1 % Normal 1-4 [facility] Comment on above: Performed By: #### U CGP #### [address] [address] [employer] Specialist: Diego Bashir MD Erythrocyte distribution width (RBC) [Ratio] 14.7 % High 11.8-14.4 [facility] Comment on above: Performed By: #### U CGP #### [address] [address] [employer] Specialist: Diego Bashir MD Hematocrit (Bld) [Volume fraction] 31.9 % Low 36.3-47.1 [facility] Comment on above: Performed By: #### U CGP #### [address] [address] [employer] Specialist: Diego Bashir MD Hemoglobin (Bld) [Mass/Vol] 10.5 g/dL Low 11.9-15.1 [facility] Comment on above: Performed By: #### U CGP #### [address] [address] [employer] Specialist: Diego Bashir MD Immature granulocytes/100 WBC (Bld) 1 % High 0 [facility] Comment on above: Performed By: #### U CGP #### [place] [address] [employer] Specialist: Diego Bashir MD Lymphocytes (Bld) [#/Vol] 2.52 10*3/uL Normal 1.10-3.70 [facility] Comment on above: Performed By: #### U CGP #### [place] [address] [employer] Specialist: Diego Bashir MD Lymphocytes/100 WBC (Bld) 25 % Normal 24-43 [facility] Comment on above: Performed By: #### U CGP #### [address] [address] [employer] Specialist: Diego Bashir MD MCH (RBC) [Entitic mass] 25.1 pg Low 25.2-33.5 [facility] Comment on above: Performed By: #### U CGP #### [place] [address] [employer] Specialist: Diego Bashir MD MCHC (RBC) [Mass/Vol] 32.9 g/dL Normal 28.4-34.8 [facility] Comment on above: Performed By: #### U CGP #### [address] [address] [employer] Specialist: Diego Bashir MD MCV (RBC) [Entitic vol] 76.3 fL Low 82.6-102.9 [facility] Comment on above: Performed By: #### U CGP #### [address] [address] [employer] Specialist: Diego Bashir MD Monocytes (Bld) [#/Vol] 0.80 10*3/uL Normal 0.10-1.20 [facility] Comment on above: Performed By: #### U CGP #### [address] [address] [employer] Specialist: Diego Bashir MD Monocytes/100 WBC (Bld) 8 % Normal 3-12 [facility] Comment on above: Performed By: #### U CGP #### [address] [address] [employer] Specialist: Diego Bashir MD Neutrophil (Seg) 64 % Normal 36-65 [facility] Comment on above: Performed By: #### U CGP #### [address] [address] [employer] Specialist: Diego Bashir MD NRBC Automated 0.0 per 100 WBC Normal 0.0 [facility] Comment on above: Performed By: #### U CGP #### [address] [address] [employer] Specialist: Diego Bashir MD Platelet mean volume (Bld) [Entitic vol] 8.7 fL Normal 8.1-13.5 [facility] Comment on above: Performed By: #### U CGP #### [address] [address] [employer] Specialist: Diego Bashir MD Platelets (Bld) [#/Vol] 298 10*3/uL Normal 138-453 [facility] Comment on above: Performed By: #### U CGP #### [address] [address] [employer] Specialist: Diego Bashir MD RBC (Bld) [#/Vol] 4.18 10*6/uL Normal 3.95-5.11 [facility] Comment on above: Performed By: #### U CGP #### [facility] [address] [place] [address] [employer] Specialist: Diego Bashir MD WBC (Bld) [#/Vol] 10.3 10*3/uL Normal 3.5-11.3 [facility] Comment on above: Performed By: #### U CGP #### [address] [address] [employer] Specialist: Diego Bashir MD Comp Metabolic Profon 2022 Albumin [Mass/Vol] 3.5 g/dL Normal 3.5-5.2 [facility] Comment on above: Performed By: #### U CGP #### [address] [address] [employer] Specialist: Diego Bashir MD Albumin/Glob Ratio 1.1 Normal 1.0-2.5 [facility] Comment on above: Performed By: #### U CGP #### [address] [address] [employer] Specialist: Diego Bashir MD Alkaline Phos 140 U/L High 35-104 [facility] Comment on above: Performed By: #### U CGP #### [address] [address] [employer] Specialist: Diego Bashir MD ALT [Catalytic activity/Vol] 8 U/L Normal 5-33 [facility] Comment on above: Performed By: #### U CGP #### [address] [address] [employer] Specialist: Diego Bashir MD Anion gap [Moles/Vol] 15 mmol/L Normal 9-17 [facility] Comment on above: Performed By: #### U CGP #### [address] [address] [employer] Specialist: Diego Bashir MD AST [Catalytic activity/Vol] 14 U/L Normal <32 [facility] Comment on above: Performed By: #### U CGP #### [address] [place] [address] [employer] Specialist: Diego Bashir MD Bilirubin [Mass/Vol] 0.3 mg/dL Normal 0.3-1.2 [facility] Comment on above: Performed By: #### U CGP #### [address] [address] [employer] Specialist: Diego Bashir MD BUN/CRE Ratio 7 Low 9-20 [facility] Comment on above: Performed By: #### U CGP #### [address] [address] [employer] Specialist: Diego Bashir MD Calcium [Mass/Vol] 8.9 mg/dL Normal 8.6-10.4 [facility] Comment on above: Performed By: #### U CGP #### [address] [address] [employer] Specialist: Diego Bashir MD Chloride [Moles/Vol] 103 mmol/L Normal 98-107 [facility] Comment on above: Performed By: #### U CGP #### [address] [address] [employer] Specialist: Diego Bashir MD CO2 [Moles/Vol] 18 mmol/L Low 20-31 [facility] Comment on above: Performed By: #### U CGP #### [address] [address] [employer] Specialist: Diego Bashir MD Creatinine [Mass/Vol] 0.42 mg/dL Low 0.50-0.90 [facility] Comment on above: Performed By: #### U CGP #### [address] [address] [employer] Specialist: Diego Bashir MD GFR/1.73 sq M.predicted among non-blacks MDRD (S/P/Bld) [Vol rate/Area] mL/min/{1.73_m2} Normal >60 [facility] Comment on above: Result Comment: These [...] secretion. Performed By: #### U CGP #### [employer] [address] [place] [address] [employer] Specialist: Diego Bashir MD Glucose [Mass/Vol] 76 mg/dL Normal 70-99 [facility] Comment on above: Performed By: #### U CGP #### [employer] [address] [place] [address] [employer] Specialist: Diego Bashir MD Potassium [Moles/Vol] 3.6 mmol/L Low 3.7-5.3 [facility] Comment on above: Performed By: #### U CGP #### [employer] [address] [place] [address] [employer] Specialist: Diego Bashir MD Protein [Mass/Vol] 6.6 g/dL Normal 6.4-8.3 [facility] Comment on above: Performed By: #### U CGP #### [employer] [address] [place] [address] [employer] Specialist: Diego Bashir MD Sodium [Moles/Vol] 136 mmol/L Normal 135-144 [facility] Comment on above: Performed By: #### U CGP #### [employer] [address] [place] [address] [employer] Specialist: Diego Bashir MD Urea nitrogen [Mass/Vol] 3 mg/dL Low 6-20 [facility] Comment on above: Performed By: #### U CGP #### [facility] [address] [place] [address] [employer] Specialist: Diego Bashir MD [facility] Metabolic [facility] 09-24-2022 Albumin [Mass/Vol] 3.5 g/dL 3.5 - 5.2 g/dL [facility] Albumin/Globulin [Mass ratio] 1.1 {ratio} 1.0 - 2.5 [facility] ALP [Catalytic activity/Vol] 140 U/L High 35 - 104 U/L [facility] ALT [Catalytic activity/Vol] 8 U/L 5 - 33 U/L [facility] Anion gap [Moles/Vol] 15 mmol/L 9 - 17 mmol/L [facility] AST [Catalytic activity/Vol] 14 U/L NINF - 32 U/L [facility] Bilirubin [Mass/Vol] 0.3 mg/dL 0.3 - 1.2 mg/dL [facility] Calcium [Mass/Vol] 8.9 mg/dL 8.6 - 10.4 mg/dL [facility] Chloride [Moles/Vol] 103 mmol/L 98 - 107 mmol/L [facility] CO2 [Moles/Vol] 18 mmol/L Low 20 - 31 mmol/L [facility] Creatinine [Mass/Vol] 0.42 mg/dL Low 0.50 - 0.90 mg/dL [facility] GFR/1.73 sq M.predicted MDRD (S/P/Bld) [Vol rate/Area] - PINF [facility] Comment on above: These results are [...] [Mass/Vol] 76 mg/dL 70 - 99 mg/dL [facility] Interpretation and review of laboratory results Abnormal [facility] Potassium [Moles/Vol] 3.6 mmol/L Low 3.7 - 5.3 mmol/L [facility] Protein [Mass/Vol] 6.6 g/dL 6.4 - 8.3 g/dL [facility] Sodium [Moles/Vol] 136 mmol/L 135 - 144 mmol/L [facility] Urea nitrogen [Mass/Vol] 3 mg/dL Low 6 - 20 mg/dL [facility] Urea nitrogen/Creatinine (Bld) [Mass ratio] 7 Low 9 - 20 [facility] DRUG SCREEN MULTI URINEon Amphetamine Screen, Ur Negative NEGATIVE [facility] Comment on above: (Positive cutoff 1000 ng/mL) Barbiturate Screen, Ur Negative NEGATIVE [facility] Comment on above: (Positive cutoff 200 ng/mL) Benzodiazepine Screen, Urine Negative NEGATIVE [facility] Comment on above: (Positive cutoff 200 ng/mL) Buprenorphine Urine Negative NEGATIVE [facility] Comment on above: (Positive cutoff 5 ng/ml) Cannabinoid Scrn, Ur Negative NEGATIVE [facility] Comment on above: (Positive cutoff 50 ng/mL) Cocaine Metabolite, Urine Negative NEGATIVE [facility] Comment on above: (Positive cutoff 300 ng/mL) Fentanyl, Ur Negative NEGATIVE [facility] Comment on above: (Positive cutoff 5 ng/ml) Methadone Screen, Urine Negative NEGATIVE [facility] Comment on above: (Positive cutoff 300 ng/mL) Opiates, Urine Negative NEGATIVE [facility] Comment on above: (Positive cutoff 300 ng/mL) Oxycodone Screen, Ur Negative NEGATIVE [facility] Comment on above: (Positive cutoff 100 ng/mL) Phencyclidine, Urine Negative NEGATIVE [facility] Comment on above: (Positive cutoff 25 ng/mL) [facility] Drug Scr, Abuse, Uron 2022 Amphetamine(s),Ur Negative Normal [facility]G [facility] Comment on above: Result Comment: (Positive cutoff 1000 ng/mL) Performed By: #### D AU #### [facility] [address] [place] [address] [employer] Specialist: Artem Jones MD Barbiturate(s),Ur Negative Normal NEG [facility] Comment on above: Result Comment: (Positive cutoff 200 ng/mL) Performed By: #### D AU #### [address] [place], [place] [id number] [employer] Specialist: Artem Jones MD Benzodiazepine(s) Negative Normal NEG [facility] Comment on above: Result Comment: (Positive cutoff 200 ng/mL) Performed By: #### D AU #### [address] [place], [place] [address] [employer] Specialist: Artem Jones MD Buprenorphrine, Ur Negative Normal NEG [facility] Comment on above: Result Comment: (Positive cutoff 5 ng/ml) Performed By: #### D AU #### [address] [place], [place] [id number] [employer] Specialist: Artem Jones MD Cannabinoid(s),Ur Negative Normal [facility] Comment on above: Result Comment: (Positive cutoff 50 ng/mL) Performed By: #### D AU #### [address] [place], [place] [id number] [employer] Specialist: Artem Jones MD Cocaine Metabolite Negative Normal [facility] Comment on above: Result Comment: (Positive cutoff 300 ng/mL) Performed By: #### D AU #### [address] [place] [address] [employer] Specialist: Artem Jones MD Fentanyl, Urine Negative Normal NEG [facility] Comment on above: Result Comment: (Positive cutoff 5 ng/ml) Performed By: #### D AU #### [address] [place], [place] [address] [employer] Specialist: Artem Jones MD Methadone Ql (U) Negative Normal NEG [facility] Comment on above: Result Comment: (Positive cutoff 300 ng/mL) Performed By: #### D AU #### [facility] [address] [place], [place] [id number] [employer] Specialist: Artem Jones MD Opiate(s), Ur Negative Normal NEG [facility] Comment on above: Result Comment: (Positive cutoff 300 ng/mL) Performed By: #### D AU #### [facility] [address] [place] [address] Dr. [place], [place] [id number] [employer] Specialist: Artem Jones MD Oxycodone, Urine Negative Normal NEG [facility] Comment on above: Result Comment: (Positive cutoff 100 ng/mL) Performed By: #### D AU #### [facility] [address] [place] [address] Dr. [place], [place] [id number] [employer] Specialist: Artem Jones MD Phencyclidine, Ur Negative Normal NEG [facility] Comment on above: Result Comment: (Positive cutoff 25 ng/mL) Performed By: #### D AU #### [facility] [address] [place] [address] Dr. [place], [place] [id number] [employer] Specialist: Artem Jones MD Lactate Dehydrogenaseon 09-14 LDH [Catalytic activity/Vol] 158 U/L Normal 135-214 [facility] Comment on above: Performed By: #### U CGP #### [address] [id number] [employer] Specialist: Diego Bashir MD Cholesterol in LDL [Mass/Vol] 158 U/L 135 - 214 U/L [facility] Microscopic Urinalysison Bacteria, UA 2+ Abnormal None [facility] Epithelial Cells UA 0 TO 2 [facility] Interpretation and review of laboratory results Abnormal [facility] Mucus, UA TRACE Abnormal None [facility] RBC clumps Auto (Urine sed) [#/Area] 0 TO 2 [facility] WBC, UA 0 TO 2 [facility] No Panel Informationon 09-24 [facility] Protein / Creatinine Ratio, Urineon 09-24-2022 Creatinine, Ur 96.6 mg/dL 28.0 - 217.0 mg/dL [facility] Protein (U) [Mass/Vol] 17 mg/dL [facility] Comment on above: No normal range esta blished. Urine Total Protein Creatinine Ratio 0.18 0.00 - 0.20 [facility] Protein,Tot,Mentor Uron 2022 Creatinine [Mass/Vol] 96.6 mg/dL Normal 28.0-217.0 [facility] Comment on above: Performed By: #### P RENAT #### [facility] [employer] [address] [place] [address] [employer] Specialist: Diego Bashir MD [facility] [address] [place] [address] [address] [place] [phone] [employer] Specialist: Artem Jones MD Tot Prot. Conc. 17 mg/dL Normal [facility] Comment on above: Result Comment: No n ormal range established. Performed By: #### P RENAT #### [facility] [employer] [address] [place] [address] [employer] Specialist: Diego Bashir MD [facility] [address] [place] [address] [address] [place] [phone] [employer] Specialist: Artem Jones MD TP/Cre Ratio 0.18 Normal 0.00-0.20 [facility] Comment on above: Performed By: #### P RENAT #### [address] [address] [employer] Specialist: Diego Bashir MD [facility] [address] [place] [address] Dr[address] [place] [phone] [employer] Specialist: Artem Jones MD TYPE AND SCREENon 09-24-2022 ABO/Rh Positive [facility] Arm Band Number [id number] [facility] Expiration Date 09/27/2022,9579 [facility] Urinalysison 09-24-2022 Bilirubin Urine Negative NEGATIVE [facility] Color, UA Yellow Yellow [facility] Glucose Auto test strip (U) [Mass/Vol] Negative NEGATIVE [facility] Interpretation and review of laboratory results Abnormal [facility] Ketones (U) [Mass/Vol] TRACE Abnormal NEGATIVE [facility] Leukocyte esterase Auto test strip Ql (U) Negative NEGATIVE [facility] Nitrite Auto test strip Ql (U) Negative NEGATIVE [facility] Protein (U) [Mass/Vol] 7.5 mg/dL 5.0 - 9.0 [facility] Protein (U) [Mass/Vol] Negative NEGATIVE [facility] Specific Dora, UA 1.010 1.010 - 1.020 B ON [facility] Turbidity UA Clear Clear [facility] Urine Hgb Negative NEGATIVE [facility] Urobilinogen, Urine Normal Normal [facility] Urinalysis, Routineon 2022 Bilirubin, SemiQt,Ur Negative Normal NEG [facility] Comment on above: Performed By: #### U CGP #### [employer] [facility] [place], [place] [phone] [employer] Specialist: Diego Bashir MD Blood, Urine Negative Normal [facility] Comment on above: Performed By: #### U CGP #### [employer] [facility] [place], [place] [phone] [employer] Specialist: Diego Bashir MD Clarity (U) Clear Normal CLEAR [facility] [facility] Comment on above: Performed By: #### U CGP #### [employer] [facility] [place] [address] [employer] Specialist: Diego Bashir MD Color (U) Yellow Normal YEL [facility] Comment on above: Performed By: #### U CGP #### [employer] [facility] [place] [address] [employer] Specialist: Diego Bashir MD Glucose Ql (U) Negative Normal NEG [facility] Comment on above: Performed By: #### U CGP #### [address] [address] [employer] Specialist: Diego Bashir MD Ketones Ql (U) TRACE Abnormal NEG [facility] Comment on above: Performed By: #### U CGP #### [address] [address] [employer] Specialist: Diego Bashir MD Leukocyte esterase Test strip Ql (U) Negative Normal NEG [facility] Comment on above: Performed By: #### U CGP #### [address] [address] [employer] Specialist: Diego Bashir MD Nitrite,Ur Negative Normal NEG [facility] Comment on above: Performed By: #### U CGP #### [address] [address] [employer] Specialist: Diego Bashir MD PH,Ur 7.5 Normal 5.0-9.0 [facility] Comment on above: Performed By: #### U CGP #### [address] [address] [employer] Specialist: Diego Bashir MD Protein Ql (U) Negative Normal NEG [facility] Comment on above: Performed By: #### U CGP #### [address] [address] [employer] Specialist: Diego Bashir MD Spec. Dora,Ur 1.010 Normal 1.010-1.020 [facility] Comment on above: Performed By: #### U CGP #### [address] [address] [employer] Specialist: Diego Bashir MD Urobilinogen,Ur Normal Normal NORM [facility] Comment on above: Performed By: #### U CGP #### [address] [address] [employer] Specialist: Diego Bashir MD Urinalysis,Microon 3 Bacteria 2+ Abnormal NONE [facility] Comment on above: Performed By: #### U CGP #### [address] [address] [employer] Specialist: Diego Bashir MD Epithelial cells LM Ql (Urine sed) 0 TO 2 Normal 0-25 [facility] Comment on above: Performed By: #### U CGP #### [address] [address] [employer] Specialist: Diego Bashir MD Mucus Strands TRACE Abnormal NONE [facility] Comment on above: Performed By: #### U CGP #### [address] [address] [employer] Specialist: Diego Bashir MD Urine RBC's 0 TO 2 Normal 0-2 [facility] Comment on above: Performed By: #### U CGP #### [address] [address] [employer] Specialist: Diego Bashir MD Urine WBC's 0 TO 2 Normal 0-5 [facility] Comment on above: Performed By: #### U CGP #### [address] [address] [employer] Specialist: Diego Bashir MD Rule Out Grp.B Strepon 09-18 Rule Out Grp.B Strep Specimen Descriptio n .VAGINA Culture NEGATIVE FOR GROUP B STREPTOCOCCI Report Status FINAL 09/18/2022 Normal [facility] Comment on above: Performed By: #### R OGBS #### [address] [address] [employer] Specialist: Diego Bashir MD EVENT MONITORon 09-16-2022 EVENT MONITOR [address] [id number] EVENT MONITOR PATIENT NAME: FABIEN PERAZA : 2000 MED REC NO: [id number] ROOM: ACCOUNT NO: [id number] ADMIT DATE: 08/16/2022 PROVIDER: Jade Soto MD [...] SB/JENIFER_EDIT Doc#: Unknown CC: ASHELY Padilla Normal [facility] CBCon 09-14-2022 Erythrocyte distribution width (RBC) [Ratio] 14.4 % Normal 11.8-14.4 [facility] Comment on above: Performed By: #### P RENAT #### [address] [address] [employer] Specialist: Diego Bashir MD [address] [place] [address] [employer] Specialist: Artem Jones MD Hematocrit (Bld) [Volume fraction] 31.2 % Low 36.3-47.1 [facility] Comment on above: Performed By: #### P RENAT #### [address] [address] [employer] Specialist: Diego Bashir MD [facility] [address] [place] [address] [place] [address] [employer] Specialist: Artem Jones MD Hemoglobin (Bld) [Mass/Vol] 9.8 g/dL Low 11.9-15.1 [facility] Comment on above: Performed By: #### P RENAT #### [address] [id number] [employer] Specialist: Diego Bashir MD [address] [place], [place] [address] [employer] Specialist: Artem Jones MD MCH (RBC) [Entitic mass] 24.9 pg Low 25.2-33.5 [facility] Comment on above: Performed By: #### P RENAT #### [address] [address] [employer] Specialist: Diego Bashir MD [address] [place] [id number] [employer] Specialist: Artem Jones MD MCHC (RBC) [Mass/Vol] 31.4 g/dL Normal 28.4-34.8 [facility] Comment on above: Performed By: #### P RENAT #### [address] [id number] [employer] Specialist: Diego Bashir MD [address] [place] [phone] [employer] Specialist: Artem Jones MD MCV (RBC) [Entitic vol] 79.2 fL Low 82.6-102.9 [facility] Comment on above: Performed By: #### P RENAT #### [address] [address] [employer] Specialist: Diego Bashir MD [address] [place] [phone] [employer] Specialist: Artem Jones MD NRBC Automated 0.0 per 100 WBC Normal 0.0 [facility] Comment on above: Performed By: #### P RENAT #### [address] [address] [employer] Specialist: Diego Bashir MD [address] [place] [phone] [employer] Specialist: Artem Jones MD Platelet mean volume (Bld) [Entitic vol] 8.3 fL Normal 8.1-13.5 [facility] Comment on above: Performed By: #### P RENAT #### [place] [address] [place] [address] [employer] Specialist: Diego Bashir MD [facility] [address] [place] [address] [place] [address] [employer] Specialist: Artem Jones MD Platelets (Bld) [#/Vol] 267 10*3/uL Normal 138-453 [facility] Comment on above: Performed By: #### P RENAT #### [address] [address] [employer] Specialist: Diego Bashir MD [facility] [address] [place] [address] Dr. [place] [phone] [employer] Specialist: Artem Jones MD RBC (Bld) [#/Vol] 3.94 10*6/uL Low 3.95-5.11 [facility] Comment on above: Performed By: #### P RENAT #### [address] [address] [employer] Specialist: Diego Bashir MD [facility] [address] [place] [address] Dr. [place] [phone] [employer] Specialist: Artem Jones MD WBC (Bld) [#/Vol] 10.7 10*3/uL Normal 3.5-11.3 [facility] Comment on above: Performed By: #### P RENAT #### [address] [address] [employer] Specialist: Diego Bashir MD [facility] [address] [place] [address] [place] [address] [employer] Specialist: Artem Jones MD Hematocrit (Bld) [Volume fraction] 31.2 % Low 36.3 - 47.1 % [facility] Hemoglobin (Bld) [Mass/Vol] 9.8 g/dL Low 11.9 - 15.1 g/dL [facility] Interpretation and review of laboratory results Abnormal [facility] MCH (RBC) [Entitic mass] 24.9 pg Low 25.2 - 33.5 pg [facility] MCHC (RBC) [Mass/Vol] 31.4 g/dL 28.4 - 34.8 g/dL [facility] MCV (RBC) [Entitic vol] 79.2 fL Low 82.6 - 102.9 fL [facility] NRBC Automated 0.0 0.0 per 100 WBC [facility] Platelet distribution width (Bld) [Ratio] 14.4 % 11.8 - 14.4 % [facility] Platelet mean volume (Bld) [Entitic vol] 8.3 fL 8.1 - 13.5 fL [facility] Platelets (Bld) [#/Vol] 267 10*3/uL [facility] RBC (Bld) [#/Vol] 3.94 10*6/uL Low 3.95 - 5.11 m/uL [facility] WBC (Bld) [#/Vol] 10.7 10*3/uL [facility] Comp Metabolic Profon 2022 Albumin [Mass/Vol] 3.3 g/dL Low 3.5-5.2 [facility] Comment on above: Performed By: #### P RENAT #### [facility] [address] [place], [place] [id number] [employer] Specialist: Diego Bashir MD [facility] [address] [place] [address] [place] [address] [employer] Specialist: Artem Jones MD Albumin/Glob Ratio 1.0 Normal 1.0-2.5 [facility] Comment on above: Performed By: #### P RENAT #### [facility] [employer] [address] [place] [address] [employer] Specialist: Diego Bashir MD [facility] [address] [place] [address] [place] [address] [employer] Specialist: Artem Jones MD Alkaline Phos 124 U/L High 35-104 [facility] Comment on above: Performed By: #### P RENAT #### [facility] [address] [place] [address] [employer] Specialist: Diego Bashir MD [facility] [address] [place] [address] Dr. [place], [place] [id number] [employer] Specialist: Artem Jones MD ALT [Catalytic activity/Vol] 7 U/L Normal 5-33 [facility] Comment on above: Performed By: #### P RENAT #### [address] [address] [employer] Specialist: Diego Bashir MD [facility] [address] [place] [address] [employer] Specialist: Artem Jones MD Anion gap [Moles/Vol] 11 mmol/L Normal 9-17 [facility] Comment on above: Performed By: #### P RENAT #### [address] [address] [employer] Specialist: Diego Bashir MD [facility] [address] [place] [address] [place] [phone] [employer] Specialist: Artem Jones MD AST [Catalytic activity/Vol] 12 U/L Normal <32 [facility] Comment on above: Performed By: #### P RENAT #### [address] [address] [employer] Specialist: Diego Bashir MD [facility] [address] [place] [address] Dr. [place] [phone] [employer] Specialist: Artem Jones MD Bilirubin [Mass/Vol] 0.2 mg/dL Low 0.3-1.2 [facility] Comment on above: Performed By: #### P RENAT #### [address] [address] [employer] Specialist: Diego Bashir MD [facility] [address] [place] [address] [place] [address] [employer] Specialist: Artem Jones MD BUN/CRE Ratio 8 Low 9-20 [facility] Comment on above: Performed By: #### P RENAT #### [facility] [address] [place] [address] [employer] Specialist: Diego Bashir MD [facility] [address] [place], [place] [address]38383 [employer] Specialist: Artem Jones MD Calcium [Mass/Vol] 9.4 mg/dL Normal 8.6-10.4 [facility] Comment on above: Performed By: #### P RENAT #### [facility] [address] [place] [address] [employer] Specialist: Diego Bashir MD [facility] [address] [place] [address] Dr. [place], [place] [id number] [employer] Specialist: Artem Jones MD Chloride [Moles/Vol] 105 mmol/L Normal 98-107 [facility] Comment on above: Performed By: #### P RENAT #### [facility] [address] [place] [address] [employer] Specialist: Diego Bashir MD [facility] [address] [place] [address] Dr. [place], [place] [id number] [employer] Specialist: Artem Jones MD CO2 [Moles/Vol] 22 mmol/L Normal 20-31 [facility] Comment on above: Performed By: #### P RENAT #### [facility] [address] [place] [address] [employer] Specialist: Diego Bashir MD [facility] [address] [place] [address] [place] [address] [employer] Specialist: Artem Jones MD Creatinine [Mass/Vol] 0.50 mg/dL Normal 0.50-0.90 [facility] Comment on above: Performed By: #### P RENAT #### [facility] [address] [place] [address] [employer] Specialist: Diego Bashir MD [address] [place] [address] [employer] Specialist: Artem Jones MD GFR/1.73 sq M.predicted among non-blacks MDRD (S/P/Bld) [Vol rate/Area] mL/min/{1.73_m2} Normal >60 [facility] Comment on above: Result Comment: These [...] secretion. Performed By: #### P RENAT #### [address] [address] [employer] Specialist: Diego Bashir MD [address] [place] [address] [employer] Specialist: Artem Jones MD Glucose [Mass/Vol] 108 mg/dL High 70-99 [facility] Comment on above: Performed By: #### P RENAT #### [address] [address] [employer] Specialist: Diego Bashir MD [address] [place] [address] [employer] Specialist: Artem Jones MD Potassium [Moles/Vol] 3.8 mmol/L Normal 3.7-5.3 [facility] Comment on above: Performed By: #### P RENAT #### [facility] [address] [place] [address] [employer] Specialist: Diego Bashir MD [address] [place] [address] [employer] Specialist: Artem Jones MD Protein [Mass/Vol] 6.5 g/dL Normal 6.4-8.3 [facility] Comment on above: Performed By: #### P RENAT #### [facility] [address] [place] [address] [employer] Specialist: Diego Bashir MD [facility] [address] [place] [address] [employer] Specialist: Artem Jones MD Sodium [Moles/Vol] 138 mmol/L Normal 135-144 [facility] Comment on above: Performed By: #### P RENAT #### [facility] [address] [place] [address] [employer] Specialist: Diego Bashir MD [facility] [address] [place] [address] [employer] Specialist: Artem Jones MD Urea nitrogen [Mass/Vol] 4 mg/dL Low 6-20 [facility] Comment on above: Performed By: #### P RENAT #### [address] [address] [employer] Specialist: Deigo Bashir MD [facility] [address] [place] [address] [employer] Specialist: Artem Jones MD Comprehensive Metabolic Pane [facility] 09-14-2022 Albumin [Mass/Vol] 3.3 g/dL Low 3.5 - 5.2 g/dL [facility] Albumin/Globulin [Mass ratio] 1.0 {ratio} 1.0 - 2.5 [facility] ALP [Catalytic activity/Vol] 124 U/L High 35 - 104 U/L [facility] ALT [Catalytic activity/Vol] 7 U/L 5 - 33 U/L [facility] Anion gap [Moles/Vol] 11 mmol/L 9 - 17 mmol/L [facility] AST [Catalytic activity/Vol] 12 U/L NINF - 32 U/L [facility] Bilirubin [Mass/Vol] 0.2 mg/dL Low 0.3 - 1.2 mg/dL [facility] Calcium [Mass/Vol] 9.4 mg/dL 8.6 - 10.4 mg/dL [facility] Chloride [Moles/Vol] 105 mmol/L 98 - 107 mmol/L [facility] CO2 [Moles/Vol] 22 mmol/L 20 - 31 mmol/L [facility] Creatinine [Mass/Vol] 0.5 mg/dL 0.50 - 0.90 mg/dL [facility] GFR/1.73 sq M.predicted MDRD (S/P/Bld) [Vol rate/Area] - PINF [facility] Comment on above: These results are [...] 108 mg/dL High 70 - 99 mg/dL [facility] Interpretation and review of laboratory results Abnormal [facility] Potassium [Moles/Vol] 3.8 mmol/L 3.7 - 5.3 mmol/L [facility] Protein [Mass/Vol] 6.5 g/dL 6.4 - 8.3 g/dL [facility] Sodium [Moles/Vol] 138 mmol/L 135 - 144 mmol/L [facility] Urea nitrogen [Mass/Vol] 4 mg/dL Low 6 - 20 mg/dL [facility] Urea nitrogen/Creatinine (Bld) [Mass ratio] 8 Low 9 - 20 [facility] Protein / Creatinine Ratio, Urineon 09-14-2022 Creatinine, Ur 110.6 mg/dL 28.0 - 217.0 mg/dL [facility] Protein (U) [Mass/Vol] 13 mg/dL [facility] Comment on above: No normal range esta blished. Urine Total Protein Creatinine Ratio 0.12 0.00 - 0.20 [facility] Protein,Tot,Mentor Uron 2022 Creatinine [Mass/Vol] 110.6 mg/dL Normal 28.0-217.0 [facility] Comment on above: Performed By: #### U RTPRT #### [facility] [address] [place], [place] [id number] [employer] Specialist: Diego Bashir MD Tot Prot. Conc. 13 mg/dL Normal [facility] Comment on above: Result Comment: No n ormal range established. Performed By: #### U RTPRT #### [facility] [place], [place] [id number] [employer] Specialist: Diego Bashir MD TP/Cre Ratio 0.12 Normal 0.00-0.20 [facility] Comment on above: Performed By: #### U RTPRT #### [facility] [place], [place] [id number] [employer] Specialist: Diego Bashir MD US OB FOLLOW UP TRANSABDOMIN AL APPROACHon 09-12-2022 US OB FOLLOW UP TRANSABDOMINAL APPROACH Growth Ultrasound ? Viable 35 week, 5 day SIUP EFW= 65% AC>HC Vertex Anterior placenta ELEONORA= 12.8 cm Interpreted by: Arin Blake DO Signed by: Arin Blake DO 09/12/22 Final result Normal [facility] US OB FOLLOW UP TRANSABDOMIN AL APPROACHon 08-29-2022 US OB FOLLOW UP TRANSABDOMINAL APPROACH Growth Ultrasound ? Viable 31 week, 4 day SIUP EFW= 53% Vertex Anterior placenta ELEONORA= 11.5 cm Cx length= 4.1 cm ? Interpreted by: Arin Blake DO Signed by: Arin Blake DO 08/29/22 Final result Normal [facility] CBC with Auto Differentialon 08-25-2022 Absolute Eos # 0.11 [facility] [employer] Absolute Immature Granulocyte 0.10 [facility] Absolute Lymph # 2.10 [facility] [employer] [place] # 0.52 [facility] [employer] Basophils (Bld) [#/Vol] 0.04 10*3/uL [facility] [employer] Basophils/100 WBC (Bld) 0 % 0 - 2 % [facility] Eosinophils/100 WBC (Bld) 1 % 1 - 4 % [facility] Hematocrit (Bld) [Volume fraction] 33.1 % Low 36.3 - 47.1 % [facility] Hemoglobin (Bld) [Mass/Vol] 10.5 g/dL Low 11.9 - 15.1 g/dL [facility] Immature granulocytes/100 WBC (Bld) 1 % High 0 [facility] Interpretation and review of laboratory results Abnormal [facility] Lymphocytes/100 WBC (Bld) 23 % Low 24 - 43 % [facility] MCH (RBC) [Entitic mass] 25.9 pg 25.2 - 33.5 pg [facility] MCHC (RBC) [Mass/Vol] 31.7 g/dL 28.4 - 34.8 g/dL [facility] MCV (RBC) [Entitic vol] 81.7 fL Low 82.6 - 102.9 fL [facility] Monocytes/100 WBC (Bld) 6 % 3 - 12 % [facility] NRBC Automated 0.0 0.0 per 100 WBC [facility] Platelet distribution width (Bld) [Ratio] 14.4 % 11.8 - 14.4 % [facility] Platelet mean volume (Bld) [Entitic vol] 9.1 fL 8.1 - 13.5 fL [facility] Platelets (Bld) [#/Vol] 301 10*3/uL [facility] RBC (Bld) [#/Vol] 4.05 10*6/uL 3.95 - 5.11 m/uL [facility] RBC (Bld) [#/Vol] MICROCYTOSIS PRESENT [facility] Segmented neutrophils/100 WBC (Bld) 69 % High 36 - 65 % [facility] Segs Absolute 6.28 [facility] WBC (Bld) [#/Vol] 9.2 10*3/uL [facility] CBC with Diffon 08-25-2022 Abs. Basophil 0.04 k/uL Normal 0.00-0.20 [facility] Comment on above: Performed By: #### C DP, GLUSC #### [place] [address] [employer] Specialist: Diego Bashir MD Abs.Imm.Granulocyte 0.10 k/uL Normal 0.00-0.30 [facility] Comment on above: Performed By: #### C DP, GLUSC #### [place] [address] [employer] Specialist: Diego Bashir MD Abs.Neutrophil (Seg) 6.28 k/uL Normal 1.50-8.10 [facility] Comment on above: Performed By: #### C DP, GLUSC #### [place] [address] [employer] Specialist: Diego Bashir MD Basophils/100 WBC (Bld) 0 % Normal 0-2 [facility] Comment on above: Performed By: #### C DP, GLUSC #### [place] [address] [employer] Specialist: Diego Bashir MD Eosinophils (Bld) [#/Vol] 0.11 10*3/uL Normal 0.00-0.44 [facility] Comment on above: Performed By: #### C DP, GLUSC #### [place] [address] [employer] Specialist: Diego Bashir MD Eosinophils/100 WBC (Bld) 1 % Normal 1-4 [facility] Comment on above: Performed By: #### C DP, GLUSC #### [facility] [employer] [address] [place] [address] [employer] Specialist: Diego Bashir MD Erythrocyte distribution width (RBC) [Ratio] 14.4 % Normal 11.8-14.4 [facility] Comment on above: Performed By: #### C DP, GLUSC #### [address] [address] [employer] Specialist: Diego Bashir MD Hematocrit (Bld) [Volume fraction] 33.1 % Low 36.3-47.1 [facility] Comment on above: Performed By: #### C DP, GLUSC #### [address] [address] [employer] Specialist: Diego Bashir MD Hemoglobin (Bld) [Mass/Vol] 10.5 g/dL Low 11.9-15.1 [facility] Comment on above: Performed By: #### C DP, GLUSC #### [address] [address] [employer] Specialist: Diego Bashir MD Immature granulocytes/100 WBC (Bld) 1 % High 0 [facility] Comment on above: Performed By: #### C DP, GLUSC #### [address] [address] [employer] Specialist: Diego Bashir MD Lymphocytes (Bld) [#/Vol] 2.10 10*3/uL Normal 1.10-3.70 [facility] Comment on above: Performed By: #### C DP, GLUSC #### [address] [address] [employer] Specialist: Diego Bashir MD Lymphocytes/100 WBC (Bld) 23 % Low 24-43 [facility] Comment on above: Performed By: #### C DP, GLUSC #### [address] [address] [employer]ist: Diego Bashir MD MCH (RBC) [Entitic mass] 25.9 pg Normal 25.2-33.5 [facility] Comment on above: Performed By: #### C DP, GLUSC #### [facility] [employer] [address] [place] [address] [employer] Specialist: Diego Bashir MD MCHC (RBC) [Mass/Vol] 31.7 g/dL Normal 28.4-34.8 [facility] Comment on above: Performed By: #### C DP, GLUSC #### [address] [address] [employer] Specialist: Diego Bashir MD MCV (RBC) [Entitic vol] 81.7 fL Low 82.6-102.9 [facility] Comment on above: Performed By: #### C DP, GLUSC #### [address] [address] [employer] Specialist: Diego Bashir MD Monocytes (Bld) [#/Vol] 0.52 10*3/uL Normal 0.10-1.20 [facility] Comment on above: Performed By: #### C DP, GLUSC #### [address] [address] [employer] Specialist: Diego Bashir MD Monocytes/100 WBC (Bld) 6 % Normal 3-12 [facility] Comment on above: Performed By: #### C DP, GLUSC #### [address] [address] [employer] Specialist: Diego Bashir MD Neutrophil (Seg) 69 % High 36-65 [facility] Comment on above: Performed By: #### C DP, GLUSC #### [address] [address] [employer] Specialist: Diego Bashir MD NRBC Automated 0.0 per 100 WBC Normal 0.0 [facility] Comment on above: Performed By: #### C DP, GLUSC #### [address] [address] [employer]ist: Diego Bashir MD Platelet mean volume (Bld) [Entitic vol] 9.1 fL Normal 8.1-13.5 [facility] Comment on above: Performed By: #### C DP, GLUSC #### [address] [address] [employer]ist: Diego Bashir MD Platelets (Bld) [#/Vol] 301 10*3/uL Normal 138-453 [facility] Comment on above: Performed By: #### C DP, GLUSC #### [address] [address] [employer] Specialist: Diego Bashir MD RBC (Bld) [#/Vol] 4.05 10*6/uL Normal 3.95-5.11 [facility] Comment on above: Performed By: #### C DP, GLUSC #### [address] [address] [employer] Specialist: Diego Bashir MD RBC morphology finding Nom (Bld) MICROCYTOSIS PRESENT Normal [facility] Comment on above: Performed By: #### C DP, GLUSC #### [address] [address] [employer] Specialist: Diego Bashir MD WBC (Bld) [#/Vol] 9.2 10*3/uL Normal 3.5-11.3 [facility] Comment on above: Performed By: #### C DP, GLUSC #### [address] [address] [employer] Specialist: Diego Bashir MD Glucose [place] 50gon 2022 Glucose [Mass/Vol] 142 mg/dL High 70-135 [facility] Comment on above: Performed By: #### C DP, GLUSC #### [address] [address] [employer] Specialist: Diego Bashir MD Glu Administered via Glucola Normal [facility] Comment on above: Performed By: #### C DP, GLUSC #### [employer] [address] [place] [address] [employer] Specialist: Diego Bashir MD Glucose tolerance, 1 houron 08-25-2022 GLU ADMN Glucola [facility] Glucose tolerance screen 50g 142 mg/dL High 70 - 135 mg/dL [facility] Interpretation and review of laboratory results Abnormal [facility] Echo 2D w doppler w color co mpleteon 08-16-2022 [facility] Transthoracic Echocardiography Report (TTE) Patient Name KARMEN Date of Study 08/16/2022 FABIEN Ovalle Date of 2000 Gender Female Age 21 year(s) Race Room Number Height: 62 inch, 157.48 cm Corporate ID [id number] Weight: 197 pounds, 89.4 kg # Patient Acct [id number] BSA: 1.9 m^2 BMI: 36.03 # kg/m^2 MR # [id number] [employer] Pro[employer]ist Work,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 Procedure Date Date: 08/16/2022 Start: 08:31 AM Study Location: [facility] Indications:Lighthead edness. History / Tech. Comments: [...] Calculations: LVIDd:4.97 cm(3.7 - 5.6 cm) Diastolic Volume:95.03729 ml LVIDs:3.11 cm(2.2 - 4.0 cm) Systolic [...] velocity:0.13 m/s Lateral Wall E/E':5.26 MHPN [facility] Jose A Chandler MD - 08/16/2022 [facility] Transthoracic Echocardiography Report (TTE) Patient Name KARMEN Date of Study 08/16/2022 FABIEN Ovalle Date of 2000 Gender Female Age 21 year(s) Race Room Number Height: 62 inch, 157.48 cm Corporate ID [id number] Weight: 197 pounds, 89.4 kg # Patient Acct [id number] BSA: 1.9 m^2 BMI: 36.03 # kg/m^2 MR # [id number] [employer] Pro[employer] Work,Ashley Interpreting Physician Jose A Chandler Fellow Referring Nurse 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 Interpreting Referring Physician Jade oSto Fellow Type of Study TTE procedure:2D Echocardiogram, M-Mode, Doppler, Color Doppler. Procedure Date Date: 08/16/2022 Start: 08:31 AM Study Location: [facility] Indications:Lighthead edness. History / Tech. Comments: [...] Calculations: LVIDd:4.97 cm(3.7 - 5.6 cm) Diastolic Volume:95.70225 ml LVIDs:3.11 cm(2.2 - 4.0 cm) Systolic [...] Wall E' velocity:0.13 m/s Lateral Wall E/E':5.26 [employer] Phone: Echo 2D w doppler w color co mpleteOrdered By: Jose A Chandler on 08-16-2022 [employer] Phone: Urinalysison 08-02-2022 Bilirubin Urine Negative NEGATIVE [employer], UA Yellow Yellow [facility] Glucose, Ur Negative NEGATIVE [facility] Interpretation and review of laboratory results Abnormal [facility] Ketones Ql (U) Negative NEGATIVE [facility] Leukocyte esterase Test strip Ql (U) Negative NEGATIVE [facility] Nitrite, Urine Negative NEGATIVE [facility] pH, UA 7.0 5.0 - 9.0 [facility] Protein, UA Negative NEGATIVE [facility] Specific Dora, UA Low 1.010 - 1.020 B ON [facility] Turbidity UA Clear Clear [facility] Urine Hgb Negative NEGATIVE [facility] Urobilinogen, Urine Normal Normal [facility] Urinalysis, Routineon 2022 Bilirubin, SemiQt,Ur Negative Normal NEG [facility] Comment on above: Performed By: #### U A #### [facility] [address] [place] [address] [place] [address] [employer] Specialist: Artem Jones MD Blood, Urine Negative Normal NEG [facility] Comment on above: Performed By: #### U A #### [facility] [address] [place] [address] [place] [address] [employer] Specialist: Artem Jones MD Clarity (U) Clear Normal CLEAR [facility] Comment on above: Performed By: #### U A #### [facility] [address] [place] [address] [place] [address] [employer] Specialist: Artem Jones MD Color (U) Yellow Normal [facility] Comment on above: Performed By: #### U A #### [facility] [address] [place] [address] [place] [address] [employer] Specialist: Artem Jones MD Glucose Ql (U) Negative Normal NEG [facility] Comment on above: Performed By: #### U A #### [facility] [address] [place] [address] [place] [address] [employer] Specialist: Artem Jones MD Ketones Ql (U) Negative Normal NEG [facility] Comment on above: Performed By: #### U A #### [facility] [address] [place] [address] Dr. [place], [place] [id number] [employer] Specialist: Artem Jones MD Leukocyte esterase Test strip Ql (U) Negative Normal NEG [facility] Comment on above: Performed By: #### U A #### [facility] [address] [place] [address] Dr. [place], [place] [id number] [employer] Specialist: Artem Jones MD Nitrite,Ur Negative Normal NEG [facility] Comment on above: Performed By: #### U A #### [address] [place], [place] [id number] [employer] Specialist: Artem Jones MD PH,Ur 7.0 Normal 5.0-9.0 [facility] Comment on above: Performed By: #### U A #### [address] [place], [place] [id number] [employer] Specialist: Artem Jones MD Protein Ql (U) Negative Normal NEG [facility] Comment on above: Performed By: #### U A #### [address] [place], [place] [id number] [employer] Specialist: Artem Jones MD Spec. Dora,Ur <1.005 Low 1.010-1.020 [facility] Comment on above: Performed By: #### U A #### [facility] [address] [place] [address] Dr. [place], [place] [id number] [employer] Specialist: Artem Jones MD Urobilinogen,Ur Normal Normal NORM [facility] Comment on above: Performed By: #### U A #### [facility] [address] [place] [address] Dr. [place], [place] [id number] [employer] Specialist: Artem Jones MD Cult,Urineon 02-23-2022 Cult,Urine Specimen Description .CLEAN CATCH URINE Culture KLEBSIELLA PNEUMONIAE >[id number] CFU/ML Report Status FINAL 02/23/2022 SUSCEPTIBILITY Organism [...] <=20 SUSCEPTIBLE Piperacillin/Tazobact am <=4 SUSCEPTIBLE Susceptible [facility] Comment on above: Performed By: #### U RC #### [address] [place], [place] 1670[address] [employer] Specialist: Diego Bashir MD [facility] [address] [place] [address] [employer] Specialist: Artem Jones MD Chlamydia/GC DNA, Uron 02-22 Chlamydia Probe, Ur Negative Normal NEG [facility] Comment on above: Result Comment: CHLA [...] target. Performed By: #### U CGP #### [facility] [address] [place], [place] [id number] [employer] Specialist: Diego Bashir MD Gonorrhea Probe, Ur Negative Normal NEG [facility] Comment on above: Result Comment: NEIS [...] target. Performed By: #### U CGP #### [address] [address] [employer] Specialist: Diego Bashir MD HIV Ag/Abon 02-22-2022 HIV Ag/Ab Non-Reactive Normal [facility] Comment on above: Result Comment: No l aboratory evidence of HIV infection. If acute HIV infection is suspected, consider testing for HIV-1 RNA. Performed By: #### H IVCMB, AHCV #### [address] [address] [employer] Specialist: Diego Bashir MD Hep C Abon 02-22-2022 Hep C Ab Non-Reactive Normal [facility] Comment on above: Result Comment: The hepatitis [...] Performed By: #### H IVCMB, AHCV #### [address] [address] [employer] Specialist: Diego Bashir MD Profileon 2 T.pallidum Ab Screen Non-Reactive Normal [facility] Comment on above: Result Comment: T. pallidum antibodies are not detected. There is no serological evidence of infection with T. pallidum (early primary syphilis cannot be excluded). Retest in 2-4 weeks if syphilis is clinically suspect. Performed By: #### P RENAT #### [address] [address] [employer] Specialist: Diego Bashir MD [facility] [address] [place] [address] [employer] Specialist: Artem Jones MD Hep B Surf Ag Non-Reactive Normal [facility] Comment on above: Performed By: #### P RENAT #### [address] [place], [place] [address] [employer] Specialist: Diego Bashir MD [facility] [address] [place] [address] [place] [address] [employer] Specialist: Artem Jones MD Rubella Ab, IgG 67.8 IU/mL Normal [facility] Comment on above: Result Comment: REFERENCE RANGE: <5.0 NON-REACTIVE (non-immune) 5.0 TO 9.9 EQUIVOCAL >=10.0 REACTIVE (immune) Performed By: #### P RENAT #### [facility] [employer] [address] [place], [place] [id number] [employer] Specialist: Diego Bashir MD [facility] [address] [place] [address] [place] [address] [employer] Specialist: Artem Jones MD Profile Ion 022 Absolute Eos # 0.10 [facility] Absolute Immature Granulocyte 0.05 [facility] Absolute Lymph # 2.73 [facility] Absolute [place] # 0.69 [facility] Basophils (Bld) [#/Vol] 0.07 10*3/uL [facility] Basophils/100 WBC (Bld) 1 % 0 - 2 % [facility] Eosinophils/100 WBC (Bld) 1 % 1 - 4 % [facility] Hematocrit (Bld) [Volume fraction] 37.3 % 36.3 - 47.1 % [facility] Hemoglobin (Bld) [Mass/Vol] 12.2 g/dL 11.9 - 15.1 g/dL [facility] Hepatitis B Surface Ag Non-Reactive NONREACTIVE [facility] Immature granulocytes/100 WBC (Bld) 1 % High 0 [facility] Interpretation and review of laboratory results Abnormal [facility] Lymphocytes/100 WBC (Bld) 28 % 24 - 43 % [facility] MCH (RBC) [Entitic mass] 28.0 pg 25.2 - 33.5 pg [facility] MCHC (RBC) [Mass/Vol] 32.7 g/dL 28.4 - 34.8 g/dL [facility] MCV (RBC) [Entitic vol] 85.7 fL 82.6 - 102.9 fL [facility] Monocytes/100 WBC (Bld) 7 % 3 - 12 % [facility] NRBC Automated 0.0 0.0 per 100 WBC [facility] Platelet distribution width (Bld) [Ratio] 12.7 % 11.8 - 14.4 % [facility] Platelet mean volume (Bld) [Entitic vol] 9.3 fL 8.1 - 13.5 fL [facility] Platelets (Bld) [#/Vol] 300 10*3/uL [facility] RBC (Bld) [#/Vol] 4.35 10*6/uL 3.95 - 5.11 m/uL [facility] Rubella virus IgG Ql (S) 67.8 IU/mL [facility] Comment on above: REFERENCE RANGE: <5.0 NON-REACTIVE (non-immune) 5.0 TO 9.9 EQUIVOCAL >=10.0 REACTIVE (immune) Segmented neutrophils/100 WBC (Bld) 62 % 36 - 65 % [facility] Segs Absolute 6.09 [facility] T. pallidum, IgG Non-Reactive NONREACTIVE [facility] Comment on above: T. pallidum antibodies are not detected. There is no serological evidence of infection with T. pallidum (early primary syphilis cannot be excluded). Retest in 2-4 weeks if syphilis is clinically suspect. WBC (Bld) [#/Vol] 9.7 10*3/uL [facility] HIV Screenon 02-21-2022 HIV Ag/Ab Non-Reactive NONREACTIVE [facility] Comment on above: No laboratory eviden ce of HIV infection. If acute HIV infection is suspected, consider testing for HIV-1 RNA. [facility] Hepatitis C Antibodyon 02-21 Hepatitis C Ab Non-Reactive NONREACTIVE [facility] Comment on above: The hepatitis C [...] recommended by ordering HCV RNA by PCR. [facility] TYPE AND SCREENon 0 02-21-2022 ABO/Rh Positive [facility] Profileon 2 Abs. Basophil 0.07 k/uL Normal 0.00-0.20 [facility] Comment on above: Performed By: #### P RENAT #### [address] [place] [address] [employer] Specialist: Diego Bashir MD [facility] [address] [place] [address] Dr. [place] [id number] [employer] Specialist: Artem Jones MD Abs.Imm.Granulocyte 0.05 k/uL Normal 0.00-0.30 [facility] Comment on above: Performed By: #### P RENAT #### [address] [address] [employer] Specialist: Diego Bashir MD [facility] [address] [place] [address] Dr. [place] [id number] [employer] Specialist: Artem Jones MD Abs.Neutrophil (Seg) 6.09 k/uL Normal 1.50-8.10 [facility] Comment on above: Performed By: #### P RENAT #### [address] [address] [employer] Specialist: Diego Bashir MD [facility] [address] [place] [address] [place] [address] [employer] Specialist: Artem Jones MD Basophils/100 WBC (Bld) 1 % Normal 0-2 [facility] Comment on above: Performed By: #### P RENAT #### [address] [address] [employer] Specialist: Diego Bashir MD [facility] [address] [place] [address] Dr. [place] [phone] [employer] Specialist: Artem Jones MD Eosinophils (Bld) [#/Vol] 0.10 10*3/uL Normal 0.00-0.44 [facility] Comment on above: Performed By: #### P RENAT #### [address] [place] [address] [employer] Specialist: Diego Bashir MD [facility] [address] [place] [address] Dr. [place] [id number] [employer] Specialist: Artem Jones MD Eosinophils/100 WBC (Bld) 1 % Normal 1-4 [facility] Comment on above: Performed By: #### P RENAT #### [address] [address] [employer] Specialist: Diego Bashir MD [address] [place] [id number] [employer] Specialist: Artem Jones MD Erythrocyte distribution width (RBC) [Ratio] 12.7 % Normal 11.8-14.4 [facility] Comment on above: Performed By: #### P RENAT #### [address] [address] [employer] Specialist: Diego Bashir MD [address] [place] [phone] [employer] Specialist: Artem Jones MD Hematocrit (Bld) [Volume fraction] 37.3 % Normal 36.3-47.1 [facility] Comment on above: Performed By: #### P RENAT #### [address] [address] [employer] Specialist: Diego Bashir MD [address] [place] [phone] [employer] Specialist: Artem Jones MD Hemoglobin (Bld) [Mass/Vol] 12.2 g/dL Normal 11.9-15.1 [facility] Comment on above: Performed By: #### P RENAT #### [address] [place] [address] [employer] Specialist: Diego Bashir MD [facility] [address] [place] [address] Dr. [place] [phone] [employer] Specialist: Artem Jones MD Immature granulocytes/100 WBC (Bld) 1 % High 0 [facility] Comment on above: Performed By: #### P RENAT #### [address] [address] [employer] Specialist: Diego Bashir MD [facility] [address] [place] [address] Dr. [place] [phone] [employer] Specialist: Artem Jones MD Lymphocytes (Bld) [#/Vol] 2.73 10*3/uL Normal 1.10-3.70 [facility] Comment on above: Performed By: #### P RENAT #### [address] [address] [employer] Specialist: Diego Bashir MD [address] [place] [phone] [employer] Specialist: Artem Jones MD Lymphocytes/100 WBC (Bld) 28 % Normal 24-43 [facility] Comment on above: Performed By: #### P RENAT #### [address] [address] [employer] Specialist: Diego Bashir MD [address] [place] [address] [employer] Specialist: Artem Jones MD MCH (RBC) [Entitic mass] 28.0 pg Normal 25.2-33.5 [facility] Comment on above: Performed By: #### P RENAT #### [address] [address] [employer] Specialist: Diego Bashir MD [address] [place] [phone] [employer] Specialist: Artem Jones MD MCHC (RBC) [Mass/Vol] 32.7 g/dL Normal 28.4-34.8 [facility] Comment on above: Performed By: #### P RENAT #### [address] [address] [employer] Specialist: Diego Bashir MD [facility] [address] [place] [address] Dr. [place], [place] [id number] [employer] Specialist: Artem Jones MD MCV (RBC) [Entitic vol] 85.7 fL Normal 82.6-102.9 [facility] Comment on above: Performed By: #### P RENAT #### [address] [address] [employer] Specialist: Diego Bashir MD [address] [place] [phone] [employer] Specialist: Artem Jones MD Monocytes (Bld) [#/Vol] 0.69 10*3/uL Normal 0.10-1.20 [facility] Comment on above: Performed By: #### P RENAT #### [address] [address] [employer] Specialist: Diego Bashir MD [address] [place] [phone] [employer] Specialist: Artem Jones MD Monocytes/100 WBC (Bld) 7 % Normal 3-12 [facility] Comment on above: Performed By: #### P RENAT #### [address] [address] [employer] Specialist: Diego Bashir MD [address] [place] [phone] [employer] Specialist: Artem Jones MD Neutrophil (Seg) 62 % Normal 36-65 [facility] Comment on above: Performed By: #### P RENAT #### [address] [address] [employer] Specialist: Diego Bashir MD [facility] [address] [place] [address] [place] [id number] [employer] Specialist: Artem Jones MD NRBC Automated 0.0 per 100 WBC Normal 0.0 [facility] Comment on above: Performed By: #### P RENAT #### [address] [address] [employer] Specialist: Diego Bashir MD [facility] [address] [place] [address] Dr. [place] [id number] [employer] Specialist: Artem Jones MD Platelet mean volume (Bld) [Entitic vol] 9.3 fL Normal 8.1-13.5 [facility] Comment on above: Performed By: #### P RENAT #### [address] [address] [employer] Specialist: Diego Bashir MD [address] [place] [id number] [employer] Specialist: Artem Jones MD Platelets (Bld) [#/Vol] 300 10*3/uL Normal 138-453 [facility] Comment on above: Performed By: #### P RENAT #### [address] [address] [employer] Specialist: Diego Bashir MD [address] [place] [id number] [employer] Specialist: Artem Jones MD RBC (Bld) [#/Vol] 4.35 10*6/uL Normal 3.95-5.11 [facility] Comment on above: Performed By: #### P RENAT #### [address] [address] [employer] Specialist: Diego Bashir MD [facility] [address] [place] [address] Dr. [place], [place] 2196983 [employer] Specialist: Artem Jones MD WBC (Bld) [#/Vol] 9.7 10*3/uL Normal 3.5-11.3 [facility] Comment on above: Performed By: #### P RENAT #### [address] [address] [employer] Specialist: Diego Bashir MD [facility] [address] [place] [address] [employer] Specialist: Artem Jones MD Type + Scrnon 02-21 Type + Scrn Negative Normal [facility] Comment on above: Performed By: #### P RTYS #### [facility] [address] [place] [address] [employer] Specialist: Artem Jones MD Toxicology Scree, Urineon Amphetamine(s),Ur Negative Normal NEG [facility] Comment on above: Performed By: #### U CGP #### [address] [address] [employer] Specialist: Diego Bashir MD Barbiturate(s),Ur Negative Normal NEG [facility] Comment on above: Performed By: #### U CGP #### [address] [address] [employer] Specialist: Diego Bashir MD Benzodiazepine(s) Negative Normal NEG [facility] Comment on above: Performed By: #### U CGP #### [address] [address] [employer] Specialist: Diego Bashir MD Buprenorphrine, Ur Negative Normal NEG [facility] Comment on above: Performed By: #### U CGP #### [address] [address] [employer] Specialist: Diego Bashir MD Cannabinoid(s),Ur Negative Normal NEG [facility] Comment on above: Performed By: #### U CGP #### [address] [address] [employer] Specialist: Diego Bashir MD Cocaine Metabolite Negative Normal [facility] Comment on above: Performed By: #### U CGP #### [address] [address] [employer] Specialist: Diego Bashir MD Methadone Negative Normal [facility] Comment on above: Performed By: #### U CGP #### [address] [address] [employer] Specialist: Diego Bashir MD Methamphetamine, Ur Negative Normal [facility] Comment on above: Performed By: #### U CGP #### [address] [address] [employer] Specialist: Diego Bashir MD Opiate(s), Ur Negative Normal NEG [facility] Comment on above: Performed By: #### U CGP #### [address] [address] [employer] Specialist: Diego Bashir MD Oxycodone, Urine Negative Normal NEG [facility] Comment on above: Performed By: #### U CGP #### [address] [address] [employer] Specialist: Diego Bashir MD Phencyclidine, Ur Negative Normal [facility] Comment on above: Performed By: #### U CGP #### [address] [address] [employer] Specialist: Diego Bashir MD Propoxyphene,Urine Negative Normal NEG [facility] Comment on above: Performed By: #### U CGP #### [address] [address] [employer] Specialist: Diego Bashir MD Tricyclic Antidepressants Negative Normal [facility] Comment on above: Result Comment: Drug screen results are to be used for medical purposes only. All positive results are unconfirmed. Testing for employment or legal uses should be sent to a reference laboratory for confirmation. Performed By: #### U CG #### [facility] [address] [place] [address] [employer] Specialist: Diego Bashir MD Urine Drug Screen, Chad gonzalez 02-21-2022 Amphetamine Screen, Ur Negative NEGATIVE [facility] Barbiturate Screen, Ur Negative NEGATIVE [facility] Benzodiazepine Screen, Urine Negative NEGATIVE [facility] Buprenorphine Urine Negative NEGATIVE [facility] Cannabinoid Scrn, Ur Negative NEGATIVE [facility] Cocaine Metabolite, Urine Negative NEGATIVE [facility] [facility] Meth[facility]one Screen, Urine Negative NEGATIVE [facility] Methamphetamine, Urine Negative NEGATIVE [facility] Opiates, Urine Negative NEGATIVE [facility] Oxycodone Screen, Ur Negative NEGATIVE [facility] Phencyclidine, Urine Negative NEGATIVE [facility] Propoxyphene, Urine Negative NEGATIVE [facility] Tricyclic Antidepressants, Urine Negative NEGATIVE [facility] Comment on above: Drug screen results are to be used for medical purposes only. All positive results are unconfirmed. Testing for employment or legal uses should be sent to a reference laboratory for confirmation. [facility] TILT TABLE TESTon 01-26-2022 TILT TABLE TEST [address] [id number] TILT TABLE TEST PATIENT NAME: FABIEN PERAZA : 2000 MED REC NO: [id number] ROOM: ACCOUNT NO: [id number] ADMIT DATE: 01/25/2022 PROVIDER: Jade Soto MD [...] up with their primary care physician and/or religious education teacher as previously scheduled. STUDY CONCLUSIONS: Abnormal head [...] MD CHASITY/DARCY_JEMMA Doc#: Unknown CC: Nick Brown, BODY JOINER-PERIOPERATIVE ASSISTANT [facility] Basic Metabolic Panelon 12-17 Anion gap [Moles/Vol] 11 mmol/L 9 - 17 mmol/L [facility] Calcium [Mass/Vol] 9.6 mg/dL 8.6 - 10.4 mg/dL [facility] Chloride [Moles/Vol] 104 mmol/L 98 - 107 mmol/L [facility] CO2 [Moles/Vol] 24 mmol/L 20 - 31 mmol/L [facility] Creatinine [Mass/Vol] 0.74 mg/dL 0.50 - 0.90 mg/dL [facility] GFR >60 >60 mL/min [facility] GFR Non- >60 >60 mL/min [facility] Glucose [Mass/Vol] 91 mg/dL 70 - 99 mg/dL [facility] Potassium [Moles/Vol] 4.0 mmol/L 3.7 - 5.3 mmol/L [facility] Sodium [Moles/Vol] 139 mmol/L 135 - 144 mmol/L [facility] Urea nitrogen (BldV) [Mass/Vol] 14 mg/dL 6 - 20 mg/dL [facility] Urea nitrogen/Creatinine (Bld) [Mass ratio] 19 [facility] Basic Metabolic Profon 01-13 (cont.) Normal [facility] Comment on above: Result Comment: Aver age GFR for 20-29 years old: 116 mL/min/1.73sq m Chronic Kidney Disease: <60 mL/min/1.73sq m Kidney failure: <15 mL/min/1.73sq m eGFR calculated using average adult body mass. Additional eGFR calculator available at: http://www.[employer]/multiple_crcl_2012.htm Performed By: #### B RIC, CBC #### [facility] [address] [place] [address] [employer] Specialist: Artem Jones MD Anion gap [Moles/Vol] 11 mmol/L Normal - [facility] Comment on above: Performed By: #### Valarie LARIOS, CBC #### [facility] [address] [place] [address] [employer] Delivery Specialist: Artem Jones MD BUN/CRE Ratio 19 Normal - [facility] Comment on above: Performed By: #### Valarie LARIOS, CBC #### [facility] [address] [place] [address] [employer] Specialist: Artem Jones MD Calcium [Mass/Vol] 9.6 mg/dL Normal 8.6-10.4 [facility] Comment on above: Performed By: #### B MP, CBC #### [facility] [address] [place], [place] [id number] [employer] Specialist: Artem Jones MD Chloride [Moles/Vol] 104 mmol/L Normal 98-107 [facility] Comment on above: Performed By: #### B MP, CBC #### [facility] [address] [place] [address] [employer] Specialist: Artem Jones MD CO2 [Moles/Vol] 24 mmol/L Normal 20-31 [facility] Comment on above: Performed By: #### B MP, CBC #### [facility] [address] [place], [place] [id number] [employer] Specialist: Artem Jones MD Creatinine [Mass/Vol] 0.74 mg/dL Normal 0.50-0.90 [facility] Comment on above: Performed By: #### B MP, CBC #### [facility] [address] [place], [place] [id number] [employer] Specialist: Artem Jones MD GFR, Amer >60 Normal >60 [facility] Comment on above: Performed By: #### B MP, CBC #### [facility] [address] [place] [address] [employer] Specialist: Artem Jones MD GFR,non Amer >60 Normal >60 [facility] Comment on above: Performed By: #### B MP, CBC #### [facility] [address] [place] [address] [employer] Specialist: Artem Jones MD Glucose [Mass/Vol] 91 mg/dL Normal 70-99 [facility] Comment on above: Performed By: #### B MP, CBC #### [facility] [address] [place], [place] [id number] [employer] Specialist: Artem Jones MD Potassium [Moles/Vol] 4.0 mmol/L Normal 3.7-5.3 [facility] Comment on above: Performed By: #### B MP, CBC #### [facility] [address] [place], [place] [id number] [employer] Specialist: Artem Jones MD Sodium [Moles/Vol] 139 mmol/L Normal 135-144 [facility] Comment on above: Performed By: #### B MP, CBC #### [address] [place] [address] [employer] Delivery Specialist: Artem Jones MD Staging: Normal [facility] Comment on above: Result Comment: Stag e 1: Some kidney damage normal GFR Stage 2: Mild kidney damage GFR 60-89 Stage 3: Moderate kidney damage GFR 30-59 Stage 4: Severe kidney damage GFR 15-29 Stage 5: Severe kidney damage GFR <15 ESRD - chronic treatment by dialysis or transplant Performed By: #### B MP, CBC #### [address] [place] [address] [employer] Delivery Specialist: Artem Jones MD Urea nitrogen [Mass/Vol] 14 mg/dL Normal 6-20 [facility] Comment on above: Performed By: #### B MP, CBC #### [facility] [address] [place] [address] Dr[address] [place], [place] [id number] [employer] Specialist: Artem Jones MD CBCon 01-13-2022 Erythrocyte distribution width (RBC) [Ratio] 12.4 % Normal 11.8-14.4 [facility] Comment on above: Performed By: #### B MP, CBC #### [address] [place] [address] [employer] Specialist: Artem Jones MD Hematocrit (Bld) [Volume fraction] 39.7 % Normal 36.3-47.1 [facility] Comment on above: Performed By: #### B MP, CBC #### [address] [place] [address] [employer] Specialist: Artem Jones MD Hemoglobin (Bld) [Mass/Vol] 13.0 g/dL Normal 11.9-15.1 [facility] Comment on above: Performed By: #### B MP, CBC #### [address] [place], [place] [id number] [employer] Specialist: Artem Jones MD MCH (RBC) [Entitic mass] 27.7 pg Normal 25.2-33.5 [facility] Comment on above: Performed By: #### B MP, CBC #### [address] [place] [address] [employer] Delivery Specialist: Artem Jones MD MCHC (RBC) [Mass/Vol] 32.7 g/dL Normal 28.4-34.8 [facility] Comment on above: Performed By: #### B MP, CBC #### [address] [place] [address] [employer] Delivery Specialist: Artem Jones MD MCV (RBC) [Entitic vol] 84.6 fL Normal 82.6-102.9 [facility] Comment on above: Performed By: #### B MP, CBC #### [address] [place] [address] [employer] Delivery Specialist: Artem Jones MD NRBC Automated 0.0 per 100 WBC Normal 0.0 [facility] Comment on above: Performed By: #### B MP, CBC #### [address] [place] [address] [employer] And [employer] Delivery Specialist: Artem Jones MD Platelet mean volume (Bld) [Entitic vol] 9.1 fL Normal 8.1-13.5 [facility] Comment on above: Performed By: #### B MP, CBC #### [facility] [address] [place], [place] [id number] [employer] Delivery Specialist: Artem Jones MD Platelets (Bld) [#/Vol] 275 10*3/uL Normal 138-453 [facility] Comment on above: Performed By: #### B MP, CBC #### [facility] [address] [place], [place] [id number] [employer] Delivery Specialist: Artem Jones MD RBC (Bld) [#/Vol] 4.69 10*6/uL Normal 3.95-5.11 [facility] Comment on above: Performed By: #### B MP, CBC #### [facility] [address] [place], [place] [id number] [employer] Specialist: Artem Jones MD WBC (Bld) [#/Vol] 8.2 10*3/uL Normal 3.5-11.3 [facility] Comment on above: Performed By: #### B MP, CBC #### [facility] [address] [place], [place] [id number] [employer] Specialist: Artem Jones MD Hematocrit (Bld) [Volume fraction] 39.7 % 36.3 - 47.1 % [facility] Hemoglobin (Bld) [Mass/Vol] 13.0 g/dL 11.9 - 15.1 g/dL [facility] MCH (RBC) [Entitic mass] 27.7 pg 25.2 - 33.5 pg [facility] MCHC (RBC) [Mass/Vol] 32.7 g/dL 28.4 - 34.8 g/dL [facility] MCV (RBC) [Entitic vol] 84.6 fL 82.6 - 102.9 fL [facility] NRBC Automated 0.0 0.0 per 100 WBC [facility] Platelet distribution width (Bld) [Ratio] 12.4 % 11.8 - 14.4 % [facility] Platelet mean volume (Bld) [Entitic vol] 9.1 fL 8.1 - 13.5 fL [facility] Platelets (Bld) [#/Vol] 275 10*3/uL [facility] RBC (Bld) [#/Vol] 4.69 10*6/uL 3.95 - 5.11 m/uL [facility] WBC (Bld) [#/Vol] 8.2 10*3/uL [facility] Laboratory - Chemistry and C hemistry - challengeon 01-13-2022 GFR/1.73 sq M.predicted MDRD (S/P/Bld) [Vol rate/Area] [facility] Comment on above: Average GFR for 20-2 9 years old: 116 mL/min/1.73sq m Chronic Kidney Disease: <60 mL/min/1.73sq m Kidney failure: <15 mL/min/1.73sq m eGFR calculated using average adult body mass. Additional eGFR calculator available at: http://www.[employer]/multiple_crcl_2012.htm Stage 1: Some kidney damage normal GFR Stage 2: Mild kidney damage GFR 60-89 Stage 3: Moderate kidney damage GFR 30-59 Stage 4: Severe kidney damage GFR 15-29 Stage 5: Severe kidney damage GFR <15 ESRD - chronic treatment by dialysis or transplant PROGRESSon 10-12-2017 [facility] NOTES Normal [facility] PROGRESSon 09-21-2017 [facility] NOTES Normal [facility] Vital Signs Date Time Vital Sign Value Performing Clinician Faci lity 09-26-2022 08:16-0400 Body temperature 98.1 [degF] Zak Bejarano MD Work Phone: [facility] 09-26-2022 08:16-0400 Diastolic blood pressure 80 mm[Hg] Zak Bejarano MD Work Phone: [facility] 09-26-2022 08:16-0400 Heart rate 81 /min Zak Bejarano MD Work Phone: [facility] 09-26-2022 08:16-0400 Respiratory rate 16 /min Zak Bejarano MD Work Phone: [facility] 09-26-2022 08:16-0400 Systolic blood pressure 130 mm[Hg] Zak Bejarano MD Work Phone: [id number] 09-25-2022 08:04-0400 SaO2% (BldA) [Mass fraction] 99 % Zak Bejarano MD Work Phone: [facility] 08-02-2022 18:01-0500 Body height 157.5 cm Pete Sol APRN - CNAlison Work Phone: [facility] 08-02-2022 18:01-0500 Body mass index (BMI) [Ratio] 35.85 kg/m2 Pete Sol APRN - CNAlison Work Phone: [facility] 08-02-2022 18:01-0500 Body weight 88.91 kg Pete Sol APRN - CNAlison Work Phone: [facility] 08-02-2022 17:37-0500 Diastolic blood pressure 70 mm[Hg] Pete Sol APRN - CNAlison Work Phone: [facility] 08-02-2022 17:37-0500 Heart rate 93 /min Pete Sol APRN Yanet CNAlison Work Phone: [facility] 08-02-2022 17:37-0500 Respiratory rate 18 /min Pete Sol APRN - CNAlison Work Phone: [facility] 08-02-2022 17:37-0500 Systolic blood pressure 118 mm[Hg] Pete Sol APRN - CNAlison Work Phone: [facility] 08-02-2022 17:17-0500 Body temperature 97.9 [degF] Pete Sol IAN - CNM Work Phone: [facility] 01-14-2020 10:40-0400 BMI (Body Mass Index) 30.2 kg/m2 [facility] Work Phone: 01-14-2020 10:40-0400 Body weight 74.84 kg [facility] Work Phone: 01-14-2020 [id number] BSA (Body Surface Area) 1.76 m2 [facility] Work Phone: 01-14-2020 [id number] Height 157.48 cm [facility] Work Phone: Encounters Encounter Date Encounter Type Care Provider Facility Start: 08-09-2023 End: 08-09-2023 ambulatory REINALDO ARRIETA Not Available Start: 07-06-2023 End: 07-06-2023 ambulatory MELO LAM Not Available Start: 06-07-2023 End: 06-07-2023 ambulatory REINALDO ARRIETA Not Available Start: 09-24-2022 End: 09-26-2022 Evaluation and management of inpatient Zak Bejarano MD Work Phone: [email or web address] Start: 09-14-2022 End: 09-15-2022 ambulatory NICK [facility] Start: 09-14-2022 End: 09-14-2022 Subsequent hospital visit by physician Nick Brown APRN - PERIOPERATIVE ASSISTANT Work Phone: [facility] Comment on above: 36 weeks gestation o f Start: 09-14-2022 End: 09-14-2022 ambulatory [facility] Start: 09-14-2022 End: 09-14-2022 Subsequent hospital visit by physician Nick Brown APRN - PERIOPERATIVE ASSISTANT Work Phone: [email or web address] Comment on above: Elevated blood press ure affecting , antepartum Start: 09-08-2022 End: 09-08-2022 ambulatory ADITYA Moore [facility] Start: 08-25-2022 End: 08-26-2022 ambulatory JACQUI RUSSELL [facility] Start: 08-25-2022 End: 08-25-2022 Subsequent hospital visit by physician Nick Brown APRN - PERIOPERATIVE ASSISTANT Work Phone: [facility] OB and MOVE COORDINATOR Comment on above: Encounter for superv ision of normal first in second trimester Start: 08-16-2022 End: 08-17-2022 ambulatory NICK L STEPHANIE [facility] Start: 08-16-2022 End: 08-16-2022 Subsequent hospital visit by physician [facility] Echo Room [facility] Echocardiography Comment on above: Light headedness; POTS (postural orthostatic tachycardia syndrome); Abnormal tilt table test Light headedness; POTS (postural orthostatic tachycardia syndrome); Abnormal tilt table test; 29 weeks gestation of ; Chest pain, unspecified type Start: 08-02-2022 End: 08-02-2022 ambulatory [facility] [place] [facility] Start: 08-02-2022 End: 08-02-2022 Subsequent hospital visit by physician Pete Sol APRN - CNAlison Work Phone: [facility] Labor and Delivery Start: 02-21-2022 End: 02-22-2022 ambulatory [facility] [place] [facility] Start: 02-21-2022 End: 02-21-2022 Subsequent hospital visit by physician Nick Brown APRN - PERIOPERATIVE ASSISTANT Work Phone: [facility] Laboratory Comment on above: Encounter for superv ision of normal , antepartum, unspecified ; Positive urine test Start: 01-25-2022 End: 01-26-2022 ambulatory NICK L STEPHANIE [place] [facility] Start: 01-25-2022 End: 01-25-2022 Subsequent hospital visit by physician [facility] [employer] [facility] EKG Comment on above: Heart palpitations Start: 01-13-2022 End: 01-14-2022 ambulatory [facility] Start: 01-13-2022 End: 01-13-2022 Subsequent hospital visit by physician Nick Brown APRN - PERIOPERATIVE ASSISTANT Work Phone: [facility] Laboratory Comment on above: Heart palpitations Start: 03-15-2021 End: 03-15-2021 Patient encounter procedure Cari Toribio MD [facility] Laboratory Start: 03-15-2021 End: 03-15-2021 Subsequent hospital visit by physician Cari Toribio MD [facility] Comment on above: Women's annual routi ne gynecological examination Start: 01-14-2020 End: 01-14-2020 Patient encounter procedure Meri Silva Work Phone: [facility] Work Phone: Start: 01-14-2020 End: 01-14-2020 Telemedicine consultation with patient Radha Cuevas Work Phone: [facility] Work Phone: Start: 10-12-2017 [facility] Start: 09-21-2017 [facility] Procedures Date Procedure Procedure Detail Performing Clinician [...] End: 09-14-2022 Comprehensive metabolic panel Elizabeth Galvez BODY JOINER - CNM Work Phone: Start: 08-25-[address] gtt 3 specimens Jacqui Russell BODY JOINER - CNM Work Phone: Start: 08-16-2022 Echo tthrc r-t 2d w/wom-mode compl spec&colr d Jade Soto MD Work Phone: Start: 08-02-2022 Urnls dip stick/tabl et rgnt auto w/o microscopy Pete Sol [facility] Work Phone: Start: 02-21-2022 Antibody screen Nick Brown BODY JOINER [employer] [facility] Work Phone: Start: 02-21-2022 End: 02-21-2022 Antibody hiv-1&hiv-2 single result Pete Sol [facility] Work Phone: Start: 02-21-2022 Drug screen, qualitate/multi Pete Sol [facility] Work Phone: Start: 01-13-2022 Basic metabolic pane l calcium total Nick Brown [facility] [employer] [facility] Work Phone: Start: 03-15-2021 Microscopic observat ion [Identifier] in Cervix by Cyto stain Nick Brown [facility] [employer] [facility] Work Phone: Start: 01-14-2020 MIGRAINE HEADACHE Gertrude e Faith NEGATED: Highlighted row has not occurred!Start: 01-14-2020 reported prior surgical / procedural history Radha Faith Plan of Treatment Date Care Activity Detail Author Start: 03-15-2024 Screening for malignant neoplasm of cervix Pap smear [employer] [facility] Start: 05-09-2023 Depression Screen Depression Screen [facility] [facility] Start: 05-09-2023 Influenza vaccination Flu vaccine (#1) [employer] [facility] Comment on above: Postponed from 02/14/2022 (Patient Refus ed) Start: 02-21-2023 Screening for Chlamydia trachomatis Chlamydia/GC screen [employer] [facility] Start: 02-03-2023 Depression Screen [facility] Start: 01-13-2023 COVID-19 Vaccine (#1) COVID-19 Vaccine (#1) [facility] Comment on above: Postponed from 05/17/2000 (Patient Refus ed) Start: 01-13-2023 COVID-19 Vaccine (1) COVID-19 Vaccine (1) [employer] [facility] Comment on above: Postponed from 11/14/2004 (Patient Refus ed) Start: 01-13-2023 Depression Screen Depression [facility] Start: 01-13-2023 DTaP/Tdap/Td vaccine (1 - Tdap) DTaP/Tdap/Td vaccine (1 - Tdap) [facility] Comment on above: Postponed from 11/14/2018 (Patient Refus ed) Start: 01-13-2023 Hepatitis C screening Hepatitis C screen [facility] [employer] [facility] Comment on above: Postponed from 11/14/2017 (Patient Refus ed) Start: 01-13-2023 HIV screening HIV screen [facility] Comment on above: Postponed from 11/14/2014 (Patient Refus ed) Start: 01-13-2023 HPV vaccine (1 - 2-dose series) HPV vaccine (1 - 2-dose series) [facility] Comment on above: Postponed from 11/14/2010 (Patient Refus ed) Start: 11-30-2022 End: 11-30-2022 Patient encounter procedure 11/30/2022 Office Visit Cardiology Samantha Mora PA-C [address] [place] [address] [facility] Start: 10-31-2022 End: 10-31-2022 ambulatory 10/31/2022 Visit Obstetrics and Gynecology Jacqui Russell, BODY JOINER - CNM [address] [place] [address] [facility] Obstetrics & Gynecology Start: 09-21-2022 End: 09-21-2022 Patient encounter procedure 09/21/2022 Office Visit Cardiology Samantha Mora PA-C [address] [place] [address] [facility] Start: 09-20-2022 End: 09-20-2022 Patient encounter procedure 09/20/2022 Routine Obstetrics and Gynecology Jacqui Russell, BODY JOINER - CNM [address] [place] [address] [facility] Obstetrics & Gynecology Start: 09-14-2022 End: 09-14-2022 Patient encounter procedure 09/14/2022 Routine Obstetrics and Gynecology Elizabeth Galvez, BODY JOINER - CNM [address] [address] [facility] Obstetrics & Gynecology Start: 09-08-2022 End: 09-08-2022 Patient encounter procedure 09/08/2022 Routine Obstetrics and Gynecology Aditya Galvan, BODY JOINER - COTTRELL BLOWER [address] [address] [facility] Obstetrics & Gynecology Start: 09-08-2022 End: 09-08-2022 Professional / ancillary services management 09/08/2022 Ancillary Procedure Obstetrics and Gynecology [facility] Obstetrics & Gynecology Start: 08-25-2022 End: 08-25-2022 Patient encounter procedure 08/25/2022 Routine Obstetrics and Gynecology Jacqui Russell, BODY JOINER - CNM [address] [place] [address] [facility] Obstetrics & Gynecology Start: 08-16-2022 End: 08-16-2022 Patient encounter procedure [facility] Start: 08-10-2022 End: 08-10-2022 Patient encounter procedure 08/10/2022 Routine Obstetrics and Gynecology Arin Sykes, [address] [place] [address] [facility] Obstetrics & Gynecology Start: 08-10-2022 End: 08-10-2022 Professional / ancillary services management 08/10/2022 Ancillary Procedure Obstetrics and Gynecology [facility] Obstetrics & Gynecology Start: 08-09-2022 End: 08-09-2022 Patient encounter procedure 08/09/2022 Office Visit Primary Care Nick Brown, BODY JOINER - PERIOPERATIVE ASSISTANT [address] [place] [address] [facility] Start: 08-03-2022 End: 08-03-2022 Patient encounter procedure 08/03/2022 Routine Obstetrics and Gynecology LeonorMartínezjose, BODY JOINER - CNM [address] [place], [place] [id number] [facility] Obstetrics & Gynecology Start: 05-09-2022 End: 05-09-2022 Patient encounter procedure 05/09/2022 Office Visit Primary Care Nick Brown, BODY JOINER - PERIOPERATIVE ASSISTANT [address] [place] [facility] [place] [address] [facility] Start: 04-04-2022 End: 04-04-2022 Patient encounter procedure 04/04/2022 Routine Obstetrics and Gynecology Pete Sol, BODY JOINER - CNM [address] [facility] [address] [place] [address] [facility] OBSTETRICS [facility]ECOLOGY [facility] Start: 03-17-2022 Influenza vaccination [facility] Start: 02-03-2022 End: 02-03-2022 Patient encounter procedure 02/03/2022 Office Visit Primary Care Nick Brown, BODY JOINER - PERIOPERATIVE ASSISTANT [address] [place], [place] [id number] [facility] Start: 03-17-2021 Influenza vaccination Flu vaccine (#1) [facility] Work Phone: Start: 11-14-2020 Screening for malignant neoplasm of cervix Cervical cancer screen [facility] Work Phone: Start: 02-13-2020 _SARS-CoV-2 COVID19 test Health [facility] Work Phone: Start: 01-14-[address] up Testing [facility] Work Phone: Start: 11-14-2018 DTaP/Tdap/Td vaccine (1 - Tdap) DTaP/Tdap/Td vaccine (1 - Tdap) [employer] Phone: Start: 2015 Screening for Chlamydia trachomatis Chlamydia screen [email or web address] Start: 11-14-2014 HIV screening HIV screen [facility] Phone: Start: 2011 COVID-19 Vaccine (1) COVID-19 Vaccine (1) [employer] Phone: Start: 11-14-2010 HPV vaccine (1 - 2-dose series) HPV vaccine (1 - 2-dose series) [employer] Phone: Start: 11-14-2000 Varicella vaccine (1 of 2 - 2-dose childhood series) Varicella vaccine (1 of 2 - 2-dose childhood series) [employer] Phone: Start: 1999 Hepatitis C screening Hepatitis C screen [facility] Phone: End: 08-02-2022 Bacteria identified in Urine by Culture Urine culture Microbiology Routine One Time for 1 Occurrences starting 08/02/2022 until 08/02/2022 [facility] Phone: Comment on above: One Time for 1 Occurrences starting 07/17 until 08/02/2022 End: 09-24-2022 Bacteria identified in Urine by Culture Urine culture Microbiology Routine One Time for 1 Occurrences starting 09/24/2022 until 09/24/2022 [facility] Phone: Comment on above: One Time for 1 Occurrences starting 09/14 until 09/24/2022 End: 02-21-2022 C.trachomatis N.gonorrhoeae DNA, Urine [facility] Phone: Comment on above: 1 Occurrences starting 02/21/2022 until 02/21/2022 End: 08-16-2022 Continuous cardiac monitoring, >2 up to 14 days Continuous cardiac monitoring, >2 up to 14 days Cardiac Services Routine Light headedness POTS (postural orthostatic tachycardia syndrome) Abnormal tilt table test 29 weeks gestation of Chest pain, unspecified type 1 Occurrences starting 08/16/2022 until 08/16/2022 [facility] Phone: Comment on above: 1 Occurrences starting 08/16/2022 until 08/16/2022 Continuous pulse oximetry Pulse oximetry, continuous while on epidural Respiratory Care Routine Every 4hr until discontinued starting 09/25/2022 [facility] Phone: Comment on above: Every 4hr until discontinued starting End: 09-14-2022 Culture, Strep B Screen, Vaginal/Rectal [facility] Phone: Comment on above: 1 Occurrences starting 09/14/2022 until 09/14/2022 End: 02-21-2022 Culture, Urine [place] ([facility]) Phone: Comment on above: 1 Occurrences starting 02/21/2022 until 02/21/2022 End: 03-15-2021 Cytopathology procedure, preparation of smear, genital source PAP SMEAR Lab Routine Women's annual routine gynecological examination 1 Occurrences starting 03/15/2021 until 03/15/2021 [facility] Phone: Comment on above: 1 Occurrences starting 03/15/2021 until 03/15/2021 nonstress test nonst ress test OB Routine Daily until discontinued starting 08/03/2022 [facility] Phone: Comment on above: Daily until discontinued starting 2022 nonstress test nonst ress test OB Routine Daily until discontinued starting 09/25/2022 [facility] Phone: Comment on above: Daily until discontinued starting 2022 Nonrebreather mask oxygen Nonrebreather mask oxygen Respiratory Care Routine As directed - RT (PRN) until discontinued starting 08/02/2022 [facility] Phone: Comment on above: As directed - RT (PRN) until discontinue d starting 08/02/2022 Nonrebreather mask oxygen Nonrebreather mask oxygen Respiratory Care Routine As directed - RT (PRN) until discontinued starting 09/24/2022 [facility] Phone: Comment on above: As directed - RT (PRN) until discontinue d starting 09/24/2022 Nonrebreather mask oxygen Nonrebreather mask oxygen Respiratory Care Routine As directed - RT (PRN) until discontinued starting 09/24/2022 [facility] Phone: Comment on above: As directed - RT (PRN) until discontinue d starting 09/24/2022 Oxygen therapy [Minimum Data Set] Initiate Oxygen Therapy Protocol while on epidural Respiratory Care Routine Daily until discontinued starting 09/24/2022 [facility] Phone: Comment on above: Daily until discontinued starting 2022 End: 09-25-2022 SURGICAL PATHOLOGY REPORT SURGICAL PATHOLOGY REPORT Lab Routine Once for 1 Occurrences starting 09/25/2022 until 09/25/2022 [facility] Phone: Comment on above: Once for 1 Occurrences starting 09/26/19 until 09/25/2022 End: 08-02-2022 SVE SVE Point of Care Testing Routine One Time for 1 Occurrences starting 08/02/2022 until 08/02/2022 [facility] Phone: Comment on above: One Time for 1 Occurrences starting 07/17 until 08/02/2022 End: 09-24-2022 SVE SVE Point of Care Testing Routine One Time for 1 Occurrences starting 09/24/2022 until 09/24/2022 [facility] Phone: Comment on above: One Time for 1 Occurrences starting 09/14 until 09/24/2022 Immunizations Immunization Date Immunization Notes Care Provider [facility] 09-25-2022 diphtheria, tetanus toxoids and acellular pertussis vaccine, unspecified formulation Zak Bejarano MD Work Phone: [facility] Phone: Payers Date Payer Category Payer Unknown [id number] [id number] [id number] 2014 Unknown [id number]. [id number] 1999 Unknown [id number] 2.16.8 40.1.444911.3.579.2.173 1999 Unknown [id number] 2.16.8 40.1.084963.3.579.2.173 1999 Unknown [id number] 2.16.8 40.1.491469.3.579.2.173 1999 Unknown [id number] 2.16.8 40.1.787460.3.579.2.173 1999 Unknown [id number] 2.16.8 40.1.041783.3.579.2.173 1999 Unknown [id number] 2.16.8 40.1.641607.3.579.2.173 1999 Unknown [id number] 2.16.8 40.1.420074.3.579.2.173 1999 Unknown [id number] 2.16.8 40.1.213541.3.579.2.173 1999 Unknown [id number] 2.16.8 40.1.830027.3.579.2.173 1999 Unknown [id number] 2.16.8 40.1.988614.3.579.2.173 1999 Unknown [id number] 2.16. 840.1.027394.3.579.2.175 1999 Unknown [id number] 2.16. 840.1.113685.3.579.2.175 1999 Unknown [id number] 2.16. 840.1.889826.3.579.2.175 1999 Unknown [id number] 2.16. 840.1.385969.3.579.2.175 1999 Unknown [id number] 2.16.84 0.1.742311.3.579.2.1259 1999 Unknown [id number] 2.16.840 .1.016458.3.579.2.1259 1999 Unknown [id number] 2.16.840 .1.686537.3.579.2.1259 Self-pay [id number] 2.16.840 .[id number] Social History Date Type Detail Facility Assertion Gender identity finding (finding) [facility] Work Phone: Assertion Finding of sexua l orientation (finding) [facility] Work Phone: Tobacco smoking status Unknown if ever smoked [facility] Work Phone: Start: 05-18-2012 End: 03-15-2021 Tobacco smoking status SDIS Never smoker [facility] Phone: Start: 05-18-2012 End: 03-15-2021 Tobacco use and exposure Never used [employer] Start: 03-15-2021 End: 09-25-2022 Alcohol intake Current non-drinker of alcohol (finding) [facility] Phone: Start: 2000 [facility] Assigned At [facility] Start: 01-13-2022 History SDOH Financial 5 [facility] Phone: Start: 01-13-2022 History SDOH Food Worry 1 JUAN [facility] Phone: Start: 01-19-2022 JUAN MATTHEWS S [facility] Phone: Start: 07-23-2022 End: 09-24-2022 Exposure to SARS-CoV-2 (event) Not sure [facility] Phone: NEGATED: Highlighted row Assertion Current drinker of alcohol (finding) [facility] Work Phone: NEGATED: Highlighted row Assertion Finding relating to drug misuse behavior (finding) [facility] Work Phone: NEGATED: Highlighted row Assertion Exposure to pollution (event) [facility] Work Phone: NEGATED: Highlighted row Assertion Tobacco user (finding) [facility] Work Phone: Clinical Notes 01-25-2022 to 09-26-2022 Discharge InstructionsZenaida Grant APRN - CURTIS - 09/26/2022 9:02 AM EDAndreas Grant APRN - AYANNA - 09/26/2022 8:56 AM Javier Bejarano MD - 09/24/2022 10:40 PM ESTAllyson Work - 08/16/2022 10:00 AM EST Note Date & Type Note Facility 09-26-2022 Hospital Discharg e instructions Kiran Gamino RN - 09/26/2022 9:55 AM EDT Follow-up with your OB doctor as specified. [facility] OB Department phone: Dr. Asya Gruber CN Dr. Skye Sol CN [address] [facility] [address] [facility] [address] [place] [address] [address] Skye Russell CN [address] [facility] [place] [id number] [phone] Kenya Tinajero, MSN, BODY JOINER, CNM [facility] [address] [facility] [address] [address] Shields [address] [facility] [id number] Pete Recio CNM [address] [place], [place] [id number] Zenaida Grant CNM [address] [place] [address] [place] [address] [phone] DIET Eat a well balanced diet focusing on foods high in fiber and protein. Drink plenty of fluids especially water. To avoid constipation you may take a mild stool softener as recommended by your doctor or roll shop supervisor. ACTIVITY Gradually increase your activity. Resume exercise regimen only after advice by your doctor or roll shop supervisor. Avoid lifting anything heavier than a gallon of milk for SIX weeks. Avoid driving until your doctor or roll shop supervisor has given their approval. Rise slowly from [...] have thoughts of harming yourself or your infant. If will not stop crying, contact another adult for help or place infant in their crib on their back and take a break. NEVER shake your infant. BLEEDING Vaginal bleeding will decrease in amount [...] medications as recommended by your doctor or roll shop supervisor for pain If you develop a warm, [...] vitamins as directed by your doctor or roll shop supervisor. Refer to the booklet in the folder/binder for more information. If you feel you need more assistance or have questions, please call Stacey Rodriguez IBCLC, staff consultant, at or the OB department to [...] your calf. documented in this encounter [employer] [employer] Work Phone: 09-26-2022 Hospital course Narrative Obstetrical [...] NONREACTIVE Final HIV: No results found for: [id number] Results for orders placed or performed during the hospital encounter of 09/24/22 Urinalysis Result Value Ref Range Color, UA Yellow Yellow Turbidity UA Clear Clear Glucose, Ur NEGATIVE NEGATIVE Bilirubin Urine NEGATIVE NEGATIVE Ketones, Urine TRACE (A) NEGATIVE Specific Dora, UA 1.010 1.010 - 1.020 Urine Hgb [...] # 2.52 1.10 - 3.70 k/uL Absolute [place] # 0.80 0.10 - 1.20 k/uL Absolute [...] Range Expiration Date 09/27/2022,2359 Arm Band Number [id number] ABO/Rh A POSITIVE Antibody Screen NEGATIVE complications: [...] Your Medications These medications were sent to [facility] [address] [place] [address], [facility] [address] [facility] [address] - P [phone] - F [phone] [address] [facility] [address] [facility] [id number] docusate 100 MG Caps ibuprofen 800 MG tablet Admit date: 09/24/2022 3:00 PM Discharge Date: 09/26/2022 Discharged to: Home in stable condition Plan: Follow up in 6 week(s) for post visit, blood pressure check, breast feeding check, and post depression check documented in this encounter [facility] [employer] Phone: 09-26-2022 History of Presen t illness [...] rate: Baseline Heart Rate: 125 Accelerations: present Airways Control Specialist Variability: moderate Decelerations: absent Contraction frequency: 2 minutes Position: Cephalic Membranes: ROM clear fluid Cervix: Dilation: 6-7 cm Effacement: 80 Station: -1 Consistency: soft Position: mid ASSESSMENT & PLAN: Active labor. S/P AROM. Patient progressing continue current management Provider at bedside. Admission orders received from Dr Bejarano. Amnioswab negative. documented in this encounter [facility] [employer] Phone: 08-16-2022 History of Presen t illness Narrative Explained policies and procedure of an echocardiogram/Doppler study. Patient instructed on extended monitoring engineer indications and use. Diary sent with patient. 5-7 days documented in this encounter [facility] Phone: 08-02-2022 History of Presen t illness [...] provide urine sample. documented in this encounter [facility] [employer] Phone: 08-02-2022 Hospital Discharg e instructions Wendy Choudhary RN - 08/02/2022 6:20 PM EST OUTPATIENT DISCHARGE Dr Skye Russell [facility] [address] [facility] [place] [address] [phone] ACTIVITY LIMITATIONS: ( X )Up and about [...] AND DELIVERY . documented in this encounter [facility] Phone: 01-25-2022 History of Presen t illness Narrative Explained Holter monitor and diary. documented in this encounter [facility] Phone: Evaluation note Diagnosis Women's annual routine gynecological examination documented in this encounter [facility] Phone: evaluation note* Diagnosis Heart palpitations Palpitations documented in this encounter [facility] Phone: evaluation note* Diagnosis Heart palpitations Palpitations documented in this encounter [facility] Phone: evaluation note* Diagnosis Encounter for supervision of normal , antepartum, unspecified Positive urine test documented in this encounter [facility] Phone: evaluation note* Diagnosis contractions- Primary Unspecified abnormality of labor, antepartum documented in this encounter [facility] Phone: evaluation note* Diagnosis Light headedness Dizziness and giddiness POTS (postural orthostatic tachycardia syndrome) Tachycardia, unspecified Abnormal tilt table test Other nonspecific abnormal result of function study of brain and central nervous system documented in this encounter [facility] Phone: evaluation note* Diagnosis Light headedness Dizziness and giddiness POTS (postural orthostatic tachycardia syndrome) Tachycardia, unspecified Abnormal tilt table test Other nonspecific abnormal result of function study of brain and central nervous system 29 weeks gestation of state, incidental Chest pain, unspecified type documented in this encounter [facility] Phone: evaluation note* Diagnosis Encounter for supervision of normal first in second trimester Supervision of normal first documented in this encounter [facility] Phone: evaluation note* Diagnosis 36 weeks gestation of state, incidental documented in this encounter [facility] Phone: evaluation note* Diagnosis Elevated blood pressure affecting , antepartum documented in this encounter [facility] Phone: evaluation note* Diagnosis Elevated blood pressure affecting , antepartum documented in this encounter [facility] Phone: evaluation note* Diagnosis (spontaneous vaginal delivery)- Primary Normal delivery Rupture of membranes with delay of delivery Term documented in this encounter [facility] Phone: Summary Purpose Family History No Family History Records Found Description Last Updated Maternal history of family history of is chemic heart disease 01/14/2020 Paternal history of family history of is chemic heart disease 01/14/2020 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s No Advanced Directives Records FoundDocuments on File Type Date Recorded Patient Container Packer Operator Expl anation ACP-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 ACP-Power of Assistant Manager Pt Documents on File Type Date Recorded Patient Container Packer Operator Expl anation ACP-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 ACP-Power of Assistant Manager Pt Latest Code Status on File Code Status [...] Monitor 48 Hour Nick Brown APRN - CNP [address] [place] [address] Referral ID Status Reason Start Date Expiration Date Visits Re quested Visits Authorized [id number] Closed 01/13/2022 01/13/2023 1 1 Specialty Diagnoses / Procedures Referred By Contac t Referred To Contact Cardiology Diagnoses Light headedness POTS (postural orthostatic tachycardia syndrome) Abnormal tilt table test Procedures Echo 2D w doppler w color complete Jade Soto MD [address] [place] [id number] Referral ID Status Reason Start Date Expiration Date Visits Re quested Visits Authorized [id number] Closed 08/04/2022 08/10/2023 1 1 Specialty Diagnoses / Procedures Referred By Contac t Referred To Contact Diagnoses Light headedness POTS (postural orthostatic tachycardia syndrome) Abnormal tilt table test 29 weeks gestation of Chest pain, unspecified type Procedures Continuous cardiac monitoring, >2 up to 14 days Jade Soto MD [address] [place] [id number] Referral ID Status Reason Start Date Expiration Date Visits Re quested Visits Authorized [id number] Closed 07/27/2022 07/27/2023 1 1 Assessments Findings Encounter Date Body mass index Telemedicine with Radha Faith Saleem COTTRELL BLOWER 01/14/2020 Exposure to a viral disease Telemedicine with Rachel clark Faith FLOWERS 01/14/2020 Instructions Instructions not supported for this [...] DATE CREATED AUTHOR AUTHOR'S ORGANIZ ATION 09/28/2022 [facility] DATE CREATED AUTHOR AUTHOR'S ORGANIZ ATION 07/08/2023 [facility] DATE CREATED AUTHOR AUTHOR'S ORGANIZ ATION 08/10/2023 [facility] d[facility] Specialists EPIC Evaluations & Outcomes (unre cognized section and content) Includes: Evaluations & Outcomes for active GoalsNo Outcomes Recorded Includes: Evaluations & Outcomes for active GoalsNo Outcomes Recorded Care Teams (unrecognized sec tion and content) Cafeteria Table Attendant Relationship Specialty Start Date End Date Nick Brown APRN - CNP [address] [place] [id number] PCP - General Certified Nurse 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 01/13/22 Cafeteria Table Attendant Relationship Specialty Start Date End Date Nick Brown APRN - PERIOPERATIVE ASSISTANT [address] [place] [id number] PCP - General Certified Nurse 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 01/13/22 Cafeteria Table Attendant Relationship Specialty Start Date End Date Nick Brown APRN - CNP [address] [place] [address] PCP - General Certified Nurse 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 01/13/22 Cafeteria Table Attendant Relationship Specialty Start Date End Date Nick Brown APRN - CNP [address] [id number] PCP - General Certified Nurse 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 01/13/22 Cafeteria Table Attendant Relationship Specialty Start Date End Date Nick Brown APRN - PERIOPERATIVE ASSISTANT [address] [place] [address] PCP - General Certified Nurse 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 01/13/22 Cafeteria Table Attendant Relationship Specialty Start Date End Date Nick Brown APRN - PERIOPERATIVE ASSISTANT [address] [place] [id number] PCP - General Certified Nurse 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 01/13/22 Cafeteria Table Attendant Relationship Specialty Start Date End Date Nick Brown APRN - PERIOPERATIVE ASSISTANT [address] [place] [id number] PCP - General Certified Nurse 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 01/13/22 Cafeteria Table Attendant Relationship Specialty Start Date End Date Nick Brown APRN - PERIOPERATIVE ASSISTANT [address] [place] [id number] PCP - General Certified Nurse 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 01/13/22 Cafeteria Table Attendant Relationship Specialty Start Date End Date Nick Brown APRN - PERIOPERATIVE ASSISTANT [address] [place] [id number] PCP - General Certified Nurse 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 01/13/22 Cafeteria Table Attendant Relationship Specialty Start Date End Date Nick Brown APRN - PERIOPERATIVE ASSISTANT [address] [place] [id number] PCP - General Certified Nurse 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 01/13/22 Reason for Visit (unrecogniz ed section and content) Specialty Diagnoses / Procedures Referred By Contac t Referred To Contact Diagnoses Heart palpitations Procedures Holter Monitor 48 Hour Nick Brown APRN - PERIOPERATIVE ASSISTANT [address] [place] [address] Referral ID Status Reason Start Date Expiration Date Visits Re quested Visits Authorized [id number] Closed 01/13/2022 01/13/2023 1 1 Reason Comments Contractions Specialty Diagnoses / Procedures Referred By Contac t Referred To Contact Cardiology Diagnoses Light headedness POTS (postural orthostatic tachycardia syndrome) Abnormal tilt table test Procedures Echo 2D w doppler w color complete Jade Soto MD [address] [place] [address] Referral ID Status Reason Start Date Expiration Date Visits Re quested Visits Authorized [id number] Closed 08/04/2022 08/10/2023 1 1 Specialty Diagnoses / Procedures Referred By Nii garrido Referred To Contact Diagnoses Light headedness POTS (postural orthostatic tachycardia syndrome) Abnormal tilt table test 29 weeks gestation of Chest pain, unspecified type Procedures Continuous cardiac monitoring, >2 up to 14 days Jade Soto MD [address] [place] [phone] Referral ID Status Reason Start Date Expiration Date Visits Re quested Visits Authorized [id number] Closed 07/27/2022 07/27/2023 1 1 Reason Comments [...] (Due) 0932 (Given - Provider: Kiran Gamino RN)2099 (Due) famotidine (PEPCID) tablet 20 mg 20 mg, Oral, 2 TIMES DAILY, First dose on 09/25/22 at 1100, Until Discontinued, Renal dose per pharmacy for peptic ulcer prophylaxis., 1556 (Given - Provider: Marycruz Lloyd RN)2099 (Due) 0900 (Due)2099 (Due) ferrous sulfate (IRON [...] Line = 20 mL/lumen, Labor and Delivery 2099 (Not Given - Provider: Toya David RN - Reason: IV Fluid Infusing) 0900 (Due)2100 (Due) 09 (Due)2099 (Due) sodium chloride flush [...] mL/lumen, 1045 (Due)2100 (Due) 0900 (Due)2100 (Due) jbakwys-pjaqlk-eimxa pertussis (BOOSTRIX) injection 0.5 mL 0.5 mL, [...] changed])191 (Rate/Dose Change - Provider: Toya David RN)191 (Rate/Dose Change - Provider: Toya David RN)192 (Rate/Dose Change - Provider: Toya David RN)1956 [...] Rosario RN)0825 (New Bag - Provider: Marycruz Lloyd, RN) lactated ringers IV soln infusion IntraVENous, at 125 mL/hr, CONTINUOUS, Starting on 09/25/22 at 1045, 1200 (Stopped - Provider: Marycruz Lloyd, RN) oxytocin (PITOCIN) 30 units in 500 mL [...] every 2-3 minutes with cervical changes or [place] units (MVU) greater than 200 in a [...] or chew. 2252 (Given - Provider: Dang Bruno RN) 0932 (Given - Provider: Kiran Gamino RN) lactated ringers bolus(Linked Group 1) 500 mL, [...] difficult to arouse., Starting on 09/24/22 at 205, Notify provider STAT. Mix 9 mL of [...] CONTINUOUS PRN, Pain, Starting on 09/24/22 at 1811, Nitrous oxide inhalation is to be a [...] Delivery 0921 (New Bag - Provider: Marycruz Lloyd RN)0931 (Due: Stopped - Provider: Marycruz Lloyd RN) tranexamic acid-NaCl IVPB premix 1,000 mg 1,000 [...] BE BASED ON THE PRIMARY CLINICAL RECORDS. [email or web address] provides no warranty or guarantee of the accuracy or completeness of information in this document.
[2023-09-09 02:08] LABS: AFP Value 34.3 ng/mL (.); Gest. Age on Collection Date 19.6 weeks (.); Gestat. Age Based On Ultrasound (.); Insulin Dep Diabetes No (.); Maternal Age At EDD 24.2 yr (.); OSBR Risk 1 IN 10000 (.); Results Report (.)
== END 2023-09-07 08:58 | disposition home or self-care (01) ==
LOC: LAB 09:00
PROVIDERS: Visit Provider Obstetrics & Gynecology
DX: Z34.92 Encounter for supervision of normal pregnancy, unspecified, second trimester (principal)
CPT/HCPCS: 36415; 82105

== ENCOUNTER 2023-09-11 14:44 | Outpatient (OUT) | payer OTHER, BC, SELFPAY ==
--- NOTE | 2023-09-11 14:51 | US_ITS ---
[address] [address] Patient Name: FABIEN PERAZA MRN: [id number] date: 2000 Sex: F Assigned Patient Location: US Current Patient Location: Accession/Order Number: [id number] Exam Date: 09/11/2023 15:28 Report Date: 09/12/2023 05:49 At the request of: MELO LAM Procedure: US OB anatomy EXAMINATION: US OB anatomy, US OB cervical length HISTORY: screening, for anatomic survey Z36.89 COMPARISON: No relevant comparison available. TECHNIQUE: Transabdominal sonographic examination was performed for obstetrical and evaluation. FINDINGS: Number: 1 Heart Rate: 142.1 bpm H.B. /min Amniotic Fluid Volume: Subjectively normal Placental Location: ANTERIOR with lower margin 3.7 cm from os. Cervix Length: 5.8 cm, closed. ANATOMY: Normal Structures -cerebellum, choroid plexus, cisterna magna, lateral cerebral ventricles, orbits, midline falx, hard palate, four-chamber heart, RVOT, LVOT, stomach, kidneys, bladder, umbilical cord insertion into abdomen, three-vessel cord, cervical spine, thoracic spine, lumbar spine, sacral spine, right upper extremity, left upper extremity, right lower extremity, left lower extremity. SUBOPTIMALLY SEEN: None ABNORMALITIES: (Incidentally noted is insertion of umbilical cord into placenta 4.1 cm from superior margin.) BIOMETRY: BPD: 5.0 cm 21 weeks 1 days ; 84% HC: 18.8 cm 21 weeks 1 days; 83% AC: 15.4 cm 20 weeks 4 days; 61% FL: 3.4 cm 20 weeks 5 days ; 65% EFW:374.6 grams; 79% FL/AC: 22.2 FL/BPD: 68.8 HC/AC: 1.2 GESTATIONAL AGE: Age by EDC: 20 weeks 1 days EARNEST by EDC: 01/28/2024 Age by current US: 20 weeks 6 days EARNEST by current US: 01/23/2024 US/US OB anatomy IMPRESSION: 1. Single live intrauterine with growth detailed above. Electronically authenticated by: JADE CASPER Date: 09/12/2023 05:49
--- NOTE | 2023-09-11 14:52 | US_ITS ---
[address] [address] Patient Name: FABIEN PERAZA MRN: [id number] date: 2000 Sex: F Assigned Patient Location: US Current Patient Location: Accession/Order Number: [id number] Exam Date: 09/11/2023 15:28 Report Date: 09/12/2023 05:49 At the request of: MELO LAM Procedure: US OB cervical length EXAMINATION: US OB anatomy, US OB cervical length HISTORY: screening, for anatomic survey Z36.89 COMPARISON: No relevant comparison available. TECHNIQUE: Transabdominal sonographic examination was performed for obstetrical and evaluation. FINDINGS: Number: 1 Heart Rate: 142.1 bpm H.B. /min Amniotic Fluid Volume: Subjectively normal Placental Location: ANTERIOR with lower margin 3.7 cm from os. Cervix Length: 5.8 cm, closed. ANATOMY: Normal Structures -cerebellum, choroid plexus, cisterna magna, lateral cerebral ventricles, orbits, midline falx, hard palate, four-chamber heart, RVOT, LVOT, stomach, kidneys, bladder, umbilical cord insertion into abdomen, three-vessel cord, cervical spine, thoracic spine, lumbar spine, sacral spine, right upper extremity, left upper extremity, right lower extremity, left lower extremity. SUBOPTIMALLY SEEN: None ABNORMALITIES: (Incidentally noted is insertion of umbilical cord into placenta 4.1 cm from superior margin.) BIOMETRY: BPD: 5.0 cm 21 weeks 1 days ; 84% HC: 18.8 cm 21 weeks 1 days; 83% AC: 15.4 cm 20 weeks 4 days; 61% FL: 3.4 cm 20 weeks 5 days ; 65% EFW:374.6 grams; 79% FL/AC: 22.2 FL/BPD: 68.8 HC/AC: 1.2 GESTATIONAL AGE: Age by EDC: 20 weeks 1 days EARNEST by EDC: 01/28/2024 Age by current US: 20 weeks 6 days EARNEST by current US: 01/23/2024 US/US OB cervical length IMPRESSION: 1. Single live intrauterine with growth detailed above. Electronically authenticated by: JADE CASPER Date: 09/12/2023 05:49
== END 2023-09-11 14:45 | disposition home or self-care (01) ==
LOC: US 14:47
PROVIDERS: Visit Provider Obstetrics & Gynecology
DX: Z36.89 Encounter for other specified antenatal screening (principal); Z3A.20 20 weeks gestation of pregnancy
CPT/HCPCS: 76805; 76817

== ENCOUNTER 2023-11-03 07:33 | Outpatient (OUT) | payer OTHER, BC, SELFPAY ==
--- OUTSIDE RECORDS SUMMARY | 2023-11-03 07:38 | XMS_ITS | CCD ---
Author Organization [facility] Care Team Providers Care [employer] Systems Administrator Name Role Phone ROJSA, WICHO S Unavailable Unavailable ROJAS, WICHO S Unavailable Unavailable ROJAS, WICHO S Unavailable Unavailable ROJAS, WICHO S Unavailable Unavailable ROJAS, WICHO S Unavailable Unavailable ROJAS, WICHO S Unavailable Unavailable Radha Cuevas Primary Care Provider [phone] [place], Cari Smith Primary Care Provider Unav ailable Stephanie CUSHION MAKER HAND - TRACK LAYER HEAD, Nick Stein Primary Care Provid er Stephanie CUSHION MAKER HAND - TRACK LAYER HEAD, Nick Stein Primary Care Provid er Stephanie CUSHION MAKER HAND - TRACK LAYER HEAD, Nick Stein Primary Care Provid er NICK BROWN Primary Care Unavailable BEJARANO, ZAK N Admitting Unavailable STEVE, ZAK Yamile Attending Unavailable STEPHANIE, NICK Sarita Primary Care Unavailable PETE SOL Attending UnavailPETE Maloney Admitting Unavailabl e STEPHANIE, NICK Stein Primary Care Unavailable LEONOR, JUSTEEN Referring Unavailable STEPHANIE, NICK Stein Primary Care Unavailable JADE SOTO Referring Unavailable STEPHANIE, NICK Sarita Primary Care Unavailable STEPHANIE, NICK Stein Referring Unavailable STEPHANIE, NICK Stein Primary Care Unavailable STEPHANIE, NICK Sarita Referring Unavailable STEPHANIE, NICK Stein Primary Care Unavailable STEPHANIE, NICK Stein Referring Unavailable STEPHANIE, NICK Stein Primary Care Unavailable STEPHANIE, NICK Sarita Referring Unavailable STEPHANIE, NICK Stein Primary Care Unavailable PETE SOL Referring Unavailabl e STEPHANIE, NICK Sarita Primary Care Unavailable JADE SOTO Referring Unavailable STEPHANIE, NICK Stein Primary Care Unavailable LEONOR, JUSTEEN Referring Unavailable JACQUI RUSSELL Referring Unavailable STEPHANIE, NICK Stein Primary Care Unavailable STEPHANIE, NICK Stein Primary Care Unavailable LEONOR, JUSTEEN Referring Unavailable ADITYA GALVAN Referring Unavailable STEPHANIE, NICK Stein Primary Care Unavailable REINALDO ARRIETA Attending Unavailable MELO LAM Attending Unavailable MELO LAM Attending Unavailable REINALDO ARRIETA Attending Unavailable Medications Current Medications Medication Drug [...] Episodic Unclassified (1 source) Hip Pain / [id number]() Onset: 10-12-2017 Past or Other Problems Problem [...] Results Test Name Value Interpretation Reference Range [facility] Surgical Pathologyon 023 Surgical Pathology (NOTE) [...] SURGICAL PATHOLOGY CONSULTATION Patient Name: FABIEN PERAZA [facility] Rec: [id number] Path Number: [id number] [employer] [facility] ANATOMIC PATHOLOGY [address] [place] [id number] [facility] Comment on above: Performed By: #### U CGP #### [facility] [address] [place] [address] [employer] Operator: Diego Bashir MD Type + Screenon 09-25-2022 Type + Screen Sample Expiration 09/27/2022,2359 Arm Band Number [id number] ABO/Rh(D) A POSITIVE Antibody Screen NEGATIVE [facility] Comment on above: Performed By: #### U CGP #### [facility] [address] [place] [address] [employer] Operator: Diego Bashir MD CBC with Auto Differentialon 09-24-2022 Absolute Eos # 0.08 [facility] Absolute Immature Granulocyte 0.11 [facility] Absolute Lymph # 2.52 [facility] [employer] Absolute Ware # 0.80 [facility] Basophils (Bld) [#/Vol] 0.05 10*3/uL [facility] Basophils/100 WBC (Bld) 1 % 0 - 2 % [facility] Eosinophils/100 WBC (Bld) 1 % 1 - 4 % [facility] Hematocrit (Bld) [Volume fraction] 31.9 % Low 36.3 - 47.1 % [facility] Hemoglobin (Bld) [Mass/Vol] 10.5 g/dL Low 11.9 - 15.1 g/dL [facility] Immature granulocytes/100 WBC (Bld) 1 % High 0 [facility] Interpretation and review of laboratory results Abnormal [facility] Lymphocytes/100 WBC (Bld) 25 % 24 - 43 % [facility] MCH (RBC) [Entitic mass] 25.1 pg Low 25.2 - 33.5 pg [facility] MCHC (RBC) [Mass/Vol] 32.9 g/dL 28.4 - 34.8 g/dL [facility] MCV (RBC) [Entitic vol] 76.3 fL Low 82.6 - 102.9 fL [facility] Monocytes/100 WBC (Bld) 8 % 3 - 12 % [facility] NRBC Automated 0.0 0.0 per 100 WBC [facility] Platelet distribution width (Bld) [Ratio] 14.7 % High 11.8 - 14.4 % [facility] Platelet mean volume (Bld) [Entitic vol] 8.7 fL 8.1 - 13.5 fL [facility] Platelets (Bld) [#/Vol] 298 10*3/uL [facility] RBC (Bld) [#/Vol] 4.18 10*6/uL 3.95 - 5.11 m/uL [facility] Segmented neutrophils/100 WBC (Bld) 64 % 36 - 65 % [facility] Segs Absolute 6.71 [facility] WBC (Bld) [#/Vol] 10.3 10*3/uL [facility] CBC with Diffon 09-24-2022 Abs. Basophil 0.05 k/uL Normal 0.00-0.20 [facility] Comment on above: Performed By: #### U CGP #### [facility] [address] [place] [address] [employer] Operator: Diego Bashir MD Abs.Imm.Granulocyte 0.11 k/uL Normal 0.00-0.30 [facility] Comment on above: Performed By: #### U CGP #### [address] [address] [employer] Operator: Diego Bashir MD Abs.Neutrophil (Seg) 6.71 k/uL Normal 1.50-8.10 [facility] Comment on above: Performed By: #### U CGP #### [address] [address] [employer] Operator: Diego Bashir MD Basophils/100 WBC (Bld) 1 % Normal 0-2 [facility] Comment on above: Performed By: #### U CGP #### [address] [address] [employer] Operator: Diego Bashir MD Eosinophils (Bld) [#/Vol] 0.08 10*3/uL Normal 0.00-0.44 [facility] Comment on above: Performed By: #### U CGP #### [address] [address] [employer] Operator: Diego Bashir MD Eosinophils/100 WBC (Bld) 1 % Normal 1-4 [facility] Comment on above: Performed By: #### U CGP #### [address] [address] [employer] Operator: Diego Bashir MD Erythrocyte distribution width (RBC) [Ratio] 14.7 % High 11.8-14.4 [facility] Comment on above: Performed By: #### U CGP #### [address] [address] [employer] Operator: Diego Bashir MD Hematocrit (Bld) [Volume fraction] 31.9 % Low 36.3-47.1 [facility] Comment on above: Performed By: #### U CGP #### [address] [address] [employer] Operator: Diego Bashir MD Hemoglobin (Bld) [Mass/Vol] 10.5 g/dL Low 11.9-15.1 [facility] Comment on above: Performed By: #### U CGP #### [address] [address] [employer] Operator: Dieog Bashir MD Immature granulocytes/100 WBC (Bld) 1 % High 0 [facility] Comment on above: Performed By: #### U CGP #### [address] [address] [employer] Operator: Diego Bashir MD Lymphocytes (Bld) [#/Vol] 2.52 10*3/uL Normal 1.10-3.70 [facility] Comment on above: Performed By: #### U CGP #### [place] [address] [employer] Operator: Diego Bashir MD Lymphocytes/100 WBC (Bld) 25 % Normal 24-43 [facility] Comment on above: Performed By: #### U CGP #### [address] [address] [employer] Operator: Diego Bashir MD MCH (RBC) [Entitic mass] 25.1 pg Low 25.2-33.5 [facility] Comment on above: Performed By: #### U CGP #### [place] [address] [employer] Operator: Diego Bashir MD MCHC (RBC) [Mass/Vol] 32.9 g/dL Normal 28.4-34.8 [facility] Comment on above: Performed By: #### U CGP #### [address] [address] [employer] Operator: Diego Bashir MD MCV (RBC) [Entitic vol] 76.3 fL Low 82.6-102.9 [facility] Comment on above: Performed By: #### U CGP #### [address] [address] [employer] Operator: Diego Bashir MD Monocytes (Bld) [#/Vol] 0.80 10*3/uL Normal 0.10-1.20 [facility] Comment on above: Performed By: #### U CGP #### [address] [address] [employer] Operator: Diego Bashir MD Monocytes/100 WBC (Bld) 8 % Normal 3-12 [facility] Comment on above: Performed By: #### U CGP #### [address] [address] [employer] Operator: Diego Bashir MD Neutrophil (Seg) 64 % Normal 36-[address] [facility] Comment on above: Performed By: #### U CGP #### [address] [address] [employer] Operator: Diego Bashir MD NRBC Automated 0.0 per 100 WBC Normal 0.0 [facility] Comment on above: Performed By: #### U CGP #### [address] [address] [employer] Operator: Diego Bashir MD Platelet mean volume (Bld) [Entitic vol] 8.7 fL Normal 8.1-13.5 [facility] Comment on above: Performed By: #### U CGP #### [address] [address] [employer] Operator: Diego Bashir MD Platelets (Bld) [#/Vol] 298 10*3/uL Normal 138-453 [facility] Comment on above: Performed By: #### U CGP #### [address] [address] [employer] Operator: Diego Bashir MD RBC (Bld) [#/Vol] 4.18 10*6/uL Normal 3.95-5.11 [facility] Comment on above: Performed By: #### U CGP #### [facility] [address] [place] [address] [employer] Operator: Diego Bashir MD WBC (Bld) [#/Vol] 10.3 10*3/uL Normal 3.5-11.3 [facility] Comment on above: Performed By: #### U CGP #### [address] [address] [employer] Operator: Diego Bashir MD Comp Metabolic Profon 2022 Albumin [Mass/Vol] 3.5 g/dL Normal 3.5-5.2 [facility] Comment on above: Performed By: #### U CGP #### [address] [address] [employer] Operator: Diego Bashir MD Albumin/Glob Ratio 1.1 Normal 1.0-2.5 [facility] Comment on above: Performed By: #### U CGP #### [address] [address] [employer] Operator: Diego Bashir MD Alkaline Phos 140 U/L High 35-104 [facility] Comment on above: Performed By: #### U CGP #### [address] [address] [employer] Operator: Diego Bashir MD ALT [Catalytic activity/Vol] 8 U/L Normal 5-33 [facility] Comment on above: Performed By: #### U CGP #### [address] [address] [employer] Operator: Diego Bashir MD Anion gap [Moles/Vol] 15 mmol/L Normal 9-17 [facility] Comment on above: Performed By: #### U CGP #### [address] [address] [employer] Operator: Diego Bashir MD AST [Catalytic activity/Vol] 14 U/L Normal <32 [facility] Comment on above: Performed By: #### U CGP #### [place] [id number] [place] [address] [employer] Operator: Diego Bashir MD Bilirubin [Mass/Vol] 0.3 mg/dL Normal 0.3-1.2 [facility] Comment on above: Performed By: #### U CGP #### [address] [address] [employer] Operator: Diego Bashir MD BUN/CRE Ratio 7 Low 9-20 [facility] Comment on above: Performed By: #### U CGP #### [address] [address] [employer] Operator: Diego Bashir MD Calcium [Mass/Vol] 8.9 mg/dL Normal 8.6-10.4 [facility] Comment on above: Performed By: #### U CGP #### [address] [address] [employer] Operator: Diego Bashir MD Chloride [Moles/Vol] 103 mmol/L Normal 98-107 [facility] Comment on above: Performed By: #### U CGP #### [address] [address] [employer] Operator: Diego Bashir MD CO2 [Moles/Vol] 18 mmol/L Low 20-31 [facility] Comment on above: Performed By: #### U CGP #### [address] [address] [employer] Operator: Diego Bashir MD Creatinine [Mass/Vol] 0.42 mg/dL Low 0.50-0.90 [facility] Comment on above: Performed By: #### U CGP #### [address] [address] [employer] Operator: Diego Bashir MD GFR/1.73 sq M.predicted among non-blacks MDRD (S/P/Bld) [Vol rate/Area] mL/min/{1.73_m2} Normal >60 [facility] Comment on above: Result Comment: [...] secretion. Performed By: #### U CGP #### [facility] [facility] [address] [place] [address] [employer] Operator: Diego Bashir MD Glucose [Mass/Vol] 76 mg/dL Normal 70-99 [facility] Comment on above: Performed By: #### U CGP #### [facility] [employer] [address] [place] [address] [employer] Operator: Diego Bashir MD Potassium [Moles/Vol] 3.6 mmol/L Low 3.7-5.3 [facility] Comment on above: Performed By: #### U CGP #### [facility] [address] [place] [address] [employer] Operator: Diego Bashir MD Protein [Mass/Vol] 6.6 g/dL Normal 6.4-8.3 [facility] Comment on above: Performed By: #### U CGP #### [facility] [address] [place] [address] [employer] Operator: Diego Bashir MD Sodium [Moles/Vol] 136 mmol/L Normal 135-144 [facility] Comment on above: Performed By: #### U CGP #### [facility] [address] [place] [address] [employer] Operator: Diego Bashir MD Urea nitrogen [Mass/Vol] 3 mg/dL Low 6-20 [facility] Comment on above: Performed By: #### U CGP #### [facility] [address] [place] [address] [employer] Operator: Diego Bashir MD [facility] Metabolic [facility] 09-24-2022 Albumin [Mass/Vol] 3.5 g/dL 3.5 - 5.2 g/dL [facility] Albumin/Globulin [Mass ratio] 1.1 {ratio} 1.0 - 2.5 [facility] ALP [Catalytic activity/Vol] 140 U/L High 35 - 104 U/L [facility] ALT [Catalytic activity/Vol] 8 U/L 5 - 33 U/L [facility] Anion gap [Moles/Vol] 15 mmol/L 9 - 17 mmol/L [facility] AST [Catalytic activity/Vol] 14 U/L NINF - 32 U/L [facility] Bilirubin [Mass/Vol] 0.3 mg/dL 0.3 - 1.2 mg/dL [facility] Calcium [Mass/Vol] 8.9 mg/dL 8.6 - 10.4 mg/dL [facility] Chloride [Moles/Vol] 103 mmol/L 98 - 107 mmol/L [facility] CO2 [Moles/Vol] 18 mmol/L Low 20 - 31 mmol/L [facility] Creatinine [Mass/Vol] 0.42 mg/dL Low 0.50 - 0.90 mg/dL [facility] GFR/1.73 sq M.predicted MDRD (S/P/Bld) [Vol rate/Area] - PINF [facility] Comment on above: These results [...] [Mass/Vol] 76 mg/dL 70 - 99 mg/dL [facility] Interpretation and review of laboratory results Abnormal [facility] Potassium [Moles/Vol] 3.6 mmol/L Low 3.7 - 5.3 mmol/L [facility] Protein [Mass/Vol] 6.6 g/dL 6.4 - 8.3 g/dL [facility] Sodium [Moles/Vol] 136 mmol/L 135 - 144 mmol/L [facility] Urea nitrogen [Mass/Vol] 3 mg/dL Low 6 - 20 mg/dL [facility] Urea nitrogen/Creatinine (Bld) [Mass ratio] 7 Low 9 - 20 [facility] DRUG SCREEN MULTI URINEon Amphetamine Screen, Ur Negative NEGATIVE [facility] Comment on above: (Positive cutoff 1000 ng/mL) Barbiturate Screen, Ur Negative NEGATIVE [facility] Comment on above: (Positive cutoff 200 ng/mL) Benzodiazepine Screen, Urine Negative NEGATIVE [facility] Comment on above: (Positive cutoff 200 ng/mL) Buprenorphine Urine Negative NEGATIVE [facility] Comment on above: (Positive cutoff 5 ng/ml) Cannabinoid Scrn, Ur Negative NEGATIVE [facility] Comment on above: (Positive cutoff 50 ng/mL) Cocaine Metabolite, Urine Negative NEGATIVE [facility] Comment on above: (Positive cutoff 300 ng/mL) Fentanyl, Ur Negative NEGATIVE [facility] Comment on above: (Positive cutoff 5 ng/ml) Methadone Screen, Urine Negative NEGATIVE [facility] Comment on above: (Positive cutoff 300 ng/mL) Opiates, Urine Negative NEGATIVE [facility] Comment on above: (Positive cutoff 300 ng/mL) Oxycodone Screen, Ur Negative NEGATIVE [facility] Comment on above: (Positive cutoff 100 ng/mL) Phencyclidine, Urine Negative NEGATIVE [facility] Comment on above: (Positive cutoff 25 ng/mL) [facility] Drug Scr, Abuse, Uron 2022 Amphetamine(s),Ur Negative Normal NEG [facility] Comment on above: Result Comment: (Positive cutoff 1000 ng/mL) Performed By: #### D AU #### [facility] [address] [place] [address] [employer] Operator: Artem Jones MD Barbiturate(s),Ur Negative Normal NEG [facility] Comment on above: Result Comment: (Positive cutoff 200 ng/mL) Performed By: #### D AU #### [address] [place], [place] [phone] [employer] Operator: Artem Jones MD Benzodiazepine(s) Negative Normal NEG [facility] Comment on above: Result Comment: (Positive cutoff 200 ng/mL) Performed By: #### D AU #### [address] [place], [place] [phone] [employer] Operator: Artem Jones MD Buprenorphrine, Ur Negative Normal NEG [facility] Comment on above: Result Comment: (Positive cutoff 5 ng/ml) Performed By: #### D AU #### [address] [place], [place] [phone] [employer] Operator: Artem Jones MD Cannabinoid(s),Ur Negative Normal NEG [facility] Comment on above: Result Comment: (Positive cutoff 50 ng/mL) Performed By: #### D AU #### [address] [place], [place] [phone] [employer] Operator: Artem Jones MD Cocaine Metabolite Negative Normal [facility] Comment on above: Result Comment: (Positive cutoff 300 ng/mL) Performed By: #### D AU #### [address] [place], [place] [phone] [employer] Operator: Artem Jones MD Fentanyl, Urine Negative Normal NEG [facility] Comment on above: Result Comment: (Positive cutoff 5 ng/ml) Performed By: #### D AU #### [address] [place], [place] [phone] [employer] Operator: Artem Jones MD Methadone Ql (U) Negative Normal NEG [facility] Comment on above: Result Comment: (Positive cutoff 300 ng/mL) Performed By: #### D AU #### [facility] [address] [place] [address] [employer] Operator: Artem Jones MD Opiate(s), Ur Negative Normal NEG [facility] Comment on above: Result Comment: (Positive cutoff 300 ng/mL) Performed By: #### D AU #### [facility] [address] [place] [address] [place] [place], [place] [phone] [employer] Operator: Artem Jones MD Oxycodone, Urine Negative Normal NEG [facility] Comment on above: Result Comment: (Positive cutoff 100 ng/mL) Performed By: #### D AU #### [facility] [address] [place] [address] [place] [place], [place] [phone] [employer] Operator: Artem Jones MD Phencyclidine, Ur Negative Normal NEG [facility] Comment on above: Result Comment: (Positive cutoff 25 ng/mL) Performed By: #### D AU #### [facility] [address] [place] [address] [place] [place], [place] [phone] [employer] Operator: Artem Jones MD Lactate Dehydrogenaseon 09-14 LDH [Catalytic activity/Vol] 158 U/L Normal 135-214 [facility] Comment on above: Performed By: #### U CGP #### [address] [address] [employer] Operator: Diego Bashir MD Cholesterol in LDL [Mass/Vol] 158 U/L 135 - 214 U/L [facility] Microscopic Urinalysison Bacteria, UA 2+ Abnormal None [facility] Epithelial Cells UA 0 TO 2 [facility] Interpretation and review of laboratory results Abnormal [facility] Mucus, UA TRACE Abnormal None [facility] RBC clumps Auto (Urine sed) [#/Area] 0 TO 2 [facility] WBC, UA 0 TO 2 [facility] No Panel Informationon 09-24 [facility] Protein / Creatinine Ratio, Urineon 09-24-2022 Creatinine, Ur 96.6 mg/dL 28.0 - 217.0 mg/dL [facility] Protein (U) [Mass/Vol] 17 mg/dL [facility] Comment on above: No normal range esta blished. Urine Total Protein Creatinine Ratio 0.18 0.00 - 0.20 [facility] Protein,Tot,[place] U[place] 2022 Creatinine [Mass/Vol] 96.6 mg/dL Normal 28.0-217.0 [facility] Comment on above: Performed By: #### P RENAT #### [facility] [address] [place] [address] [employer] Operator: Diego Bashir MD [facility] [address] [place] [address] [place] [address] [employer] Operator: Artem Jones MD Tot Prot. Conc. 17 mg/dL Normal [facility] Comment on above: Result Comment: No n ormal range established. Performed By: #### P RENAT #### [facility] [address] [place] [address] [employer] Operator: Diego Bashir MD [facility] [address] [place] [address] [place] [address] [employer] Operator: Artem Jones MD TP/Cre Ratio 0.18 Normal 0.00-0.20 [facility] Comment on above: Performed By: #### P RENAT #### [facility] [address] [place] [address] [employer] Operator: Diego Bashir MD [facility] [address] [place] [address] [place] [phone] [employer] Operator: Artem Jones MD TYPE AND SCREENon 09-24-2022 ABO/Rh Positive [facility] Arm Band Number [id number] [facility] Expiration Date 09/27/2022,2359 [facility] Urinalysison 09-24-2022 Bilirubin Urine Negative NEGATIVE [facility] Color, UA Yellow Yellow [facility] Glucose Auto test strip (U) [Mass/Vol] Negative NEGATIVE [facility] Interpretation and review of laboratory results Abnormal [facility] Ketones (U) [Mass/Vol] TRACE Abnormal NEGATIVE [facility] Leukocyte esterase Auto test strip Ql (U) Negative NEGATIVE [facility] Nitrite Auto test strip Ql (U) Negative NEGATIVE [facility] Protein (U) [Mass/Vol] 7.5 mg/dL 5.0 - 9.0 [facility] Protein (U) [Mass/Vol] Negative NEGATIVE [facility] Specific [place], UA 1.010 1.010 - 1.020 B ON [facility] Turbidity UA Clear Clear [facility] Urine Hgb Negative NEGATIVE [facility] Urobilinogen, Urine Normal Normal [facility] Urinalysis, Routineon 2022 Bilirubin, SemiQt,Ur Negative Normal NEG [facility] Comment on above: Performed By: #### U CGP #### [employer] [address] [place] [address] [id number] [employer]: Diego Bashir MD Blood, Urine Negative Normal [facility] Comment on above: Performed By: #### U CGP #### [employer] [address] [place] [address] [id number] [employer]: Diego Bashir MD Clarity (U) Clear Normal CLEAR [facility] Comment on above: Performed By: #### U CGP #### [employer] [facility] [place], [place] [phone] [employer]: Diego Bashir MD Color (U) Yellow Normal YEL [facility] Comment on above: Performed By: #### U CGP #### [facility] [address] [place] [address] [employer]: Diego Bashir MD Glucose Ql (U) Negative Normal NEG [facility] Comment on above: Performed By: #### U CGP #### [address] [address] [employer]: Diego Bashir MD Ketones Ql (U) TRACE Abnormal NEG [facility] in Hospital Comment on above: Performed By: #### U CGP #### [address] [address] [employer]: Diego Bashir MD Leukocyte esterase Test strip Ql (U) Negative Normal NEG [facility] Comment on above: Performed By: #### U CGP #### [address] [address] [employer]: Diego Bashir MD Nitrite,Ur Negative Normal NEG [facility] Comment on above: Performed By: #### U CGP #### [address] [address] [employer]: Diego Bashir MD PH,Ur 7.5 Normal 5.0-9.0 [facility] Comment on above: Performed By: #### U CGP #### [address] [address] [employer]: Diego Bashir MD Protein Ql (U) Negative Normal NEG [facility] in Hospital Comment on above: Performed By: #### U CGP #### [address] [address] [employer]: Diego Bashir MD Spec. [place],Ur 1.010 Normal 1.010-1.020 [facility] Comment on above: Performed By: #### U CGP #### [address] [address] [employer]: Diego Bashir MD Urobilinogen,Ur Normal Normal NORM [facility] Comment on above: Performed By: #### U CGP #### [address] [address] [employer]: Diego Bashir MD Urinalysis,Microon 3 Bacteria 2+ Abnormal NONE [facility] Comment on above: Performed By: #### U CGP #### [address] [address] [employer]: Diego Bashir MD Epithelial cells LM Ql (Urine sed) 0 TO 2 Normal 0-25 [facility] Comment on above: Performed By: #### U CGP #### [address] [address] [employer]: Diego Bashir MD Mucus Strands TRACE Abnormal [facility] Comment on above: Performed By: #### U CGP #### [address] [address] [employer]: Diego Bashir MD Urine RBC's 0 TO 2 Normal 0-2 [facility] Comment on above: Performed By: #### U CGP #### [address] [address] [employer] Operator: Diego Bashir MD Urine WBC's 0 TO 2 Normal 0-5 [facility] Comment on above: Performed By: #### U CGP #### [address] [address] [employer]: Diego Bashir MD Rule Out Grp.B Strepon 09-18 Rule Out Grp.B Strep Specimen Descriptio n .VAGINA Culture NEGATIVE FOR GROUP B STREPTOCOCCI Report Status FINAL 09/18/2022 Normal [facility] Comment on above: Performed By: #### R OGBS #### [address] [address] [employer]: Diego Bashir MD EVENT MONITORon 09-16-2022 EVENT MONITOR [address] [id number] EVENT MONITOR PATIENT NAME: FABIEN PERAZA : 2000 MED REC NO: [id number] ROOM: ACCOUNT NO: [id number] ADMIT DATE: 08/16/2022 PROVIDER: Jade Soto MD [...] SB/JENIFER_EDIT Doc#: Unknown CC: ASHELY Padilla Normal [facility] CBCon 09-14-2022 Erythrocyte distribution width (RBC) [Ratio] 14.4 % Normal 11.8-14.4 [facility] Comment on above: Performed By: #### P RENAT #### [address] [address] [employer]: Diego Bashir MD [facility] [address] [place] [address] [place] [address] [employer] Operator: Artem Jones MD Hematocrit (Bld) [Volume fraction] 31.2 % Low 36.3-47.1 [facility] Comment on above: Performed By: #### P RENAT #### [address] [address] [employer]: Diego Bashir MD [facility] [address] [place] [address] [place] [address] [employer] Operator: Artem Jones MD Hemoglobin (Bld) [Mass/Vol] 9.8 g/dL Low 11.9-15.1 [facility] Comment on above: Performed By: #### P RENAT #### [address] [address] [employer]: Diego Bashir MD [facility] [address] [place] [phone] [employer] Operator: Artem Jones MD MCH (RBC) [Entitic mass] 24.9 pg Low 25.2-33.5 [facility] Comment on above: Performed By: #### P RENAT #### [address] [phone] [employer] Operator: Diego Bashir MD [address] [place] [phone] [employer] Operator: Artem Jones MD MCHC (RBC) [Mass/Vol] 31.4 g/dL Normal 28.4-34.8 [facility] Comment on above: Performed By: #### P RENAT #### [address] [address] [employer]: Diego Bashir MD [address] [place] [phone] [employer] Operator: Artem Jones MD MCV (RBC) [Entitic vol] 79.2 fL Low 82.6-102.9 [facility] Comment on above: Performed By: #### P RENAT #### [address] [address] [employer]: Diego Bashir MD [address] [place] [phone] [employer]: Artem Jones MD NRBC Automated 0.0 per 100 WBC Normal 0.0 [facility] Comment on above: Performed By: #### P RENAT #### [address] [address] [employer]: Diego Bashir MD [address] [place] [phone] [employer]: Artem Jones MD Platelet mean volume (Bld) [Entitic vol] 8.3 fL Normal 8.1-13.5 [facility] Comment on above: Performed By: #### P RENAT #### [place] [address] [place] [address] [employer]: Diego Bashir MD [facility] [address] [place] [address] [place] [address] [employer] Operator: Artem Joens MD Platelets (Bld) [#/Vol] 267 10*3/uL Normal 138-453 [facility] Comment on above: Performed By: #### P RENAT #### [address] [address] [employer]: Diego Bashir MD [facility] [address] [place] [address] Dr. [place] [phone] [employer] Operator: Artem Jones MD RBC (Bld) [#/Vol] 3.94 10*6/uL Low 3.95-5.11 [facility] Comment on above: Performed By: #### P RENAT #### [address] [address] [employer]: Diego Bashir MD [facility] [address] [place] [address] Dr. [place] [phone] [employer] Operator: Artem Jones MD WBC (Bld) [#/Vol] 10.7 10*3/uL Normal 3.5-11.3 [facility] Comment on above: Performed By: #### P RENAT #### [address] [address] [employer]: Diego Bashir MD [facility] [address] [place] [address] [place] [address] [employer] Operator: Artem Jones MD Hematocrit (Bld) [Volume fraction] 31.2 % Low 36.3 - 47.1 % [facility] Hemoglobin (Bld) [Mass/Vol] 9.8 g/dL Low 11.9 - 15.1 g/dL [facility] Interpretation and review of laboratory results Abnormal [facility] MCH (RBC) [Entitic mass] 24.9 pg Low 25.2 - 33.5 pg [facility] MCHC (RBC) [Mass/Vol] 31.4 g/dL 28.4 - 34.8 g/dL [facility] MCV (RBC) [Entitic vol] 79.2 fL Low 82.6 - 102.9 fL [facility] NRBC Automated 0.0 0.0 per 100 WBC [facility] Platelet distribution width (Bld) [Ratio] 14.4 % 11.8 - 14.4 % [facility] Platelet mean volume (Bld) [Entitic vol] 8.3 fL 8.1 - 13.5 fL [facility] Platelets (Bld) [#/Vol] 267 10*3/uL [facility] RBC (Bld) [#/Vol] 3.94 10*6/uL Low 3.95 - 5.11 m/uL [facility] WBC (Bld) [#/Vol] 10.7 10*3/uL [facility] Comp Metabolic Profon 2022 Albumin [Mass/Vol] 3.3 g/dL Low 3.5-5.2 [facility] Comment on above: Performed By: #### P RENAT #### [facility] [address] [place], [place] [phone] [employer]: Diego Bashir MD [facility] [address] [place] [address] [place] [address] [employer] Operator: Artem Jones MD Albumin/Glob Ratio 1.0 Normal 1.0-2.5 [facility] Comment on above: Performed By: #### P RENAT #### [facility] [address] [place], [place] [phone] [employer] Operator: Diego Bashir MD [facility] [address] [place] [address] [place] [address] [employer] Operator: Artem Jones MD Alkaline Phos 124 U/L High 35-104 [facility] Comment on above: Performed By: #### P RENAT #### [facility] [address] [place] [address] [employer] Operator: Diego Bashir MD [facility] [address] [place] [address] Dr. [place], [place] [phone] [employer] Operator: Artem Jones MD ALT [Catalytic activity/Vol] 7 U/L Normal 5-33 [facility] Comment on above: Performed By: #### P RENAT #### [facility] [address] [place] [address] [employer] Operator: Diego Bashir MD [facility] [address] [place] [phone] [employer] Operator: Artem Jones MD Anion gap [Moles/Vol] 11 mmol/L Normal 9-17 [facility] Comment on above: Performed By: #### P RENAT #### [address] [address] [employer]: Diego Bashir MD [facility] [address] [place] [address] Dr. [place] [phone] [employer] Operator: Artem Jones MD AST [Catalytic activity/Vol] 12 U/L Normal <32 [facility] Comment on above: Performed By: #### P RENAT #### [address] [address] [employer]: Diego Bashir MD [facility] [address] [place] [address] Dr. [place] [phone] [employer] Operator: Artem Jones MD Bilirubin [Mass/Vol] 0.2 mg/dL Low 0.3-1.2 [facility] Comment on above: Performed By: #### P RENAT #### [address] [address] [employer]: Diego Bashir MD [facility] [address] [place] [address] Dr. [place] [phone] [employer] Operator: Artem Jones MD BUN/CRE Ratio 8 Low 9-20 [facility] Comment on above: Performed By: #### P RENAT #### [facility] [address] [place] [address] [employer] Operator: Diego Bashir MD [facility] [address] [place] [address] Dr. [place], [place] [phone] [employer] Operator: Artem Jones MD Calcium [Mass/Vol] 9.4 mg/dL Normal 8.6-10.4 [facility] Comment on above: Performed By: #### P RENAT #### [address] [address] [employer]: Diego Bashir MD [facility] [address] [place] [address] [place] [address] [employer] Operator: Artem Jones MD Chloride [Moles/Vol] 105 mmol/L Normal 98-107 [facility] Comment on above: Performed By: #### P RENAT #### [facility] [address] [place] [address] [employer] Operator: Diego Bashir MD [facility] [address] [place] [address] [place] [address] [employer] Operator: Artem Jones MD CO2 [Moles/Vol] 22 mmol/L Normal 20-31 [facility] Comment on above: Performed By: #### P RENAT #### [address] [address] [employer] Operator: Diego Bashir MD [facility] [address] [place] [address] [place] [address] [employer] Operator: Artem Jones MD Creatinine [Mass/Vol] 0.50 mg/dL Normal 0.50-0.90 [facility] Comment on above: Performed By: #### P RENAT #### [address] [address] [employer]: Diego Bashir MD [address] [place] [address] [employer] Operator: Artem Jones MD GFR/1.73 sq M.predicted among non-blacks MDRD (S/P/Bld) [Vol rate/Area] mL/min/{1.73_m2} Normal >60 [facility] Comment on above: Result Comment: [...] secretion. Performed By: #### P RENAT #### [address] [address] [employer]: Diego Bashir MD [address] [place] [address] [employer] Operator: Artem Jones MD Glucose [Mass/Vol] 108 mg/dL High 70-99 [facility] Comment on above: Performed By: #### P RENAT #### [address] [address] [employer]: Diego Bashir MD [address] [place] [address] [employer] Operator: Artem Jones MD Potassium [Moles/Vol] 3.8 mmol/L Normal 3.7-5.3 [facility] Comment on above: Performed By: #### P RENAT #### [facility] [address] [place] [address] [employer] Operator: Diego Bashir MD [address] [place] [address] [employer] Operator: Artem Jones MD Protein [Mass/Vol] 6.5 g/dL Normal 6.4-8.3 [facility] Comment on above: Performed By: #### P RENAT #### [facility] [address] [place] [address] [employer] Operator: Diego Bashir MD [facility] [address] [place] [address] [employer] Operator: Artem Jones MD Sodium [Moles/Vol] 138 mmol/L Normal 135-144 [facility] Comment on above: Performed By: #### P RENAT #### [facility] [address] [place] [address] [employer] Operator: Diego Bashir MD [facility] [address] [place] [address] [employer] Operator: Artem Jones MD Urea nitrogen [Mass/Vol] 4 mg/dL Low 6-20 [facility] Comment on above: Performed By: #### P RENAT #### [place] [address] [place] [address] [employer]: Diego Bashir MD [facility] [address] [place] [address] [employer] Operator: Artem Jones MD Comprehensive Metabolic Pane [facility] 09-14-2022 Albumin [Mass/Vol] 3.3 g/dL Low 3.5 - 5.2 g/dL [facility] Albumin/Globulin [Mass ratio] 1.0 {ratio} 1.0 - 2.5 [facility] ALP [Catalytic activity/Vol] 124 U/L High 35 - 104 U/L [facility] ALT [Catalytic activity/Vol] 7 U/L 5 - 33 U/L [facility] Anion gap [Moles/Vol] 11 mmol/L 9 - 17 mmol/L [facility] AST [Catalytic activity/Vol] 12 U/L NINF - 32 U/L [facility] Bilirubin [Mass/Vol] 0.2 mg/dL Low 0.3 - 1.2 mg/dL [facility] Calcium [Mass/Vol] 9.4 mg/dL 8.6 - 10.4 mg/dL [facility] Chloride [Moles/Vol] 105 mmol/L 98 - 107 mmol/L [facility] CO2 [Moles/Vol] 22 mmol/L 20 - 31 mmol/L [facility] Creatinine [Mass/Vol] 0.5 mg/dL 0.50 - 0.90 mg/dL [facility] GFR/1.73 sq M.predicted MDRD (S/P/Bld) [Vol rate/Area] - PINF [facility] Comment on above: These results [...] 108 mg/dL High 70 - 99 mg/dL [facility] Interpretation and review of laboratory results Abnormal [facility] Potassium [Moles/Vol] 3.8 mmol/L 3.7 - 5.3 mmol/L [facility] Protein [Mass/Vol] 6.5 g/dL 6.4 - 8.3 g/dL [facility] Sodium [Moles/Vol] 138 mmol/L 135 - 144 mmol/L [facility] Urea nitrogen [Mass/Vol] 4 mg/dL Low 6 - 20 mg/dL [facility] Urea nitrogen/Creatinine (Bld) [Mass ratio] 8 Low 9 - 20 [facility] Protein / Creatinine Ratio, Urineon 09-14-2022 Creatinine, Ur 110.6 mg/dL 28.0 - 217.0 mg/dL [facility] Protein (U) [Mass/Vol] 13 mg/dL [facility] Comment on above: No normal range esta blished. Urine Total Protein Creatinine Ratio 0.12 0.00 - 0.20 [facility] Protein,Tot,[place] 2022 Creatinine [Mass/Vol] 110.6 mg/dL Normal 28.0-217.0 [facility] Comment on above: Performed By: #### U RTPRT #### [facility] [address] [place], [place] [phone] [employer]: Diego Bashir MD Tot Prot. Conc. 13 mg/dL Normal [facility] Comment on above: Result Comment: No n ormal range established. Performed By: #### U RTPRT #### [facility] [place], [place] [phone] [employer] Operator: Diego Bashir MD TP/Cre Ratio 0.12 Normal 0.00-0.20 [facility] Comment on above: Performed By: #### U RTPRT #### [facility] [place] [phone] [employer] Operator: Diego Bashir MD US OB FOLLOW UP TRANSABDOMIN AL APPROACHon 09-12-2022 US OB FOLLOW UP TRANSABDOMINAL APPROACH Growth Ultrasound ? Viable 35 week, 5 day SIUP EFW= 65% AC>HC Vertex Anterior placenta ELEONORA= 12.8 cm Interpreted by: Arin Blake DO Signed by: Arin Blake DO 09/12/22 Final result Normal [facility] US OB FOLLOW UP TRANSABDOMIN AL APPROACHon 08-29-2022 US OB FOLLOW UP TRANSABDOMINAL APPROACH Growth Ultrasound ? Viable 31 week, 4 day SIUP EFW= 53% Vertex Anterior placenta ELEONORA= 11.5 cm Cx length= 4.1 cm ? Interpreted by: Arin Blake DO Signed by: Arin Blake DO 08/29/22 Final result Normal [facility] CBC with Auto Differentialon 08-25-2022 Absolute Eos # 0.11 [facility] Absolute Immature Granulocyte 0.10 [facility] Absolute Lymph # 2.10 [facility] [employer] Absolute Ware # 0.52 [facility] [employer] Basophils (Bld) [#/Vol] 0.04 10*3/uL [facility] RSens Basophils/100 WBC (Bld) 0 % 0 - 2 % [facility] Eosinophils/100 WBC (Bld) 1 % 1 - 4 % [facility] Hematocrit (Bld) [Volume fraction] 33.1 % Low 36.3 - 47.1 % [facility] Hemoglobin (Bld) [Mass/Vol] 10.5 g/dL Low 11.9 - 15.1 g/dL [facility] Immature granulocytes/100 WBC (Bld) 1 % High 0 [facility] Interpretation and review of laboratory results Abnormal [facility] Lymphocytes/100 WBC (Bld) 23 % Low 24 - 43 % [facility] MCH (RBC) [Entitic mass] 25.9 pg 25.2 - 33.5 pg [facility] MCHC (RBC) [Mass/Vol] 31.7 g/dL 28.4 - 34.8 g/dL [facility] MCV (RBC) [Entitic vol] 81.7 fL Low 82.6 - 102.9 fL [facility] Monocytes/100 WBC (Bld) 6 % 3 - 12 % [facility] NRBC Automated 0.0 0.0 per 100 WBC [facility] Platelet distribution width (Bld) [Ratio] 14.4 % 11.8 - 14.4 % [facility] Platelet mean volume (Bld) [Entitic vol] 9.1 fL 8.1 - 13.5 fL [facility] Platelets (Bld) [#/Vol] 301 10*3/uL [facility] RBC (Bld) [#/Vol] 4.05 10*6/uL 3.95 - 5.11 m/uL [facility] RBC (Bld) [#/Vol] MICROCYTOSIS PRESENT [facility] Segmented neutrophils/100 WBC (Bld) 69 % High 36 - 65 % [facility] Segs Absolute 6.28 [facility] WBC (Bld) [#/Vol] 9.2 10*3/uL [facility] CBC with Diffon 08-25-2022 Abs. Basophil 0.04 k/uL Normal 0.00-0.20 [facility] Comment on above: Performed By: #### C DP, GLUSC #### [place] [address] [employer]: Diego Bashir MD Abs.Imm.Granulocyte 0.10 k/uL Normal 0.00-0.30 [facility] Comment on above: Performed By: #### C DP, GLUSC #### [place] [address] [employer]: Diego Bashir MD Abs.Neutrophil (Seg) 6.28 k/uL Normal 1.50-8.10 [facility] Comment on above: Performed By: #### C DP, GLUSC #### [place] [address] [employer]: Diego Bashir MD Basophils/100 WBC (Bld) 0 % Normal 0-2 [facility] Comment on above: Performed By: #### C DP, GLUSC #### [place] [address] [employer]: Diego Bashir MD Eosinophils (Bld) [#/Vol] 0.11 10*3/uL Normal 0.00-0.44 [facility] Comment on above: Performed By: #### C DP, GLUSC #### [place] [address] [employer]: Diego Bashir MD Eosinophils/100 WBC (Bld) 1 % Normal 1-4 [facility] Comment on above: Performed By: #### C DP, GLUSC #### [place] [address] [employer]: Diego Bashir MD Erythrocyte distribution width (RBC) [Ratio] 14.4 % Normal 11.8-14.4 [facility] Comment on above: Performed By: #### C DP, GLUSC #### [address] [address] [employer]: Diego Bashir MD Hematocrit (Bld) [Volume fraction] 33.1 % Low 36.3-47.1 [facility] Comment on above: Performed By: #### C DP, GLUSC #### [address] [address] [employer]: Diego Bashir MD Hemoglobin (Bld) [Mass/Vol] 10.5 g/dL Low 11.9-15.1 [facility] Comment on above: Performed By: #### C DP, GLUSC #### [address] [address] [employer] Operator: Diego Bashir MD Immature granulocytes/100 WBC (Bld) 1 % High 0 [facility] Comment on above: Performed By: #### C DP, GLUSC #### [address] [address] [employer] Operator: Diego Bashir MD Lymphocytes (Bld) [#/Vol] 2.10 10*3/uL Normal 1.10-3.70 [facility] Comment on above: Performed By: #### C DP, GLUSC #### [address] [address] [employer] Operator: Diego Bashir MD Lymphocytes/100 WBC (Bld) 23 % Low 24-43 [facility] Comment on above: Performed By: #### C DP, GLUSC #### [address] [address] [employer] Operator: Diego Bashir MD MCH (RBC) [Entitic mass] 25.9 pg Normal 25.2-33.5 [facility] Comment on above: Performed By: #### C DP, GLUSC #### [address] [address] [employer] Operator: Diego Bashir MD MCHC (RBC) [Mass/Vol] 31.7 g/dL Normal 28.4-34.8 [facility] Comment on above: Performed By: #### C DP, GLUSC #### [address] [address] [employer] Operator: Diego Bashir MD MCV (RBC) [Entitic vol] 81.7 fL Low 82.6-102.9 [facility] Comment on above: Performed By: #### C DP, GLUSC #### [address] [address] [employer] Operator: Diego Bashir MD Monocytes (Bld) [#/Vol] 0.52 10*3/uL Normal 0.10-1.20 [facility] Comment on above: Performed By: #### C DP, GLUSC #### [address] [address] [employer] Operator: Diego Bashir MD Monocytes/100 WBC (Bld) 6 % Normal 3-12 [facility] Comment on above: Performed By: #### C DP, GLUSC #### [address] [address] [employer] Operator: Diego Bashir MD Neutrophil (Seg) 69 % High 36-65 [facility] Comment on above: Performed By: #### C DP, GLUSC #### [address] [address] [employer] Operator: Diego Bashir MD NRBC Automated 0.0 per 100 WBC Normal 0.0 [facility] Comment on above: Performed By: #### C DP, GLUSC #### [address] [address] [employer] Operator: Diego Bashir MD Platelet mean volume (Bld) [Entitic vol] 9.1 fL Normal 8.1-13.5 [facility] Comment on above: Performed By: #### C DP, GLUSC #### [address] [address] [employer] Operator: Diego Bashir MD Platelets (Bld) [#/Vol] 301 10*3/uL Normal 138-453 [facility] Comment on above: Performed By: #### C DP, GLUSC #### [address] [address] [employer] Operator: Diego Bashir MD RBC (Bld) [#/Vol] 4.05 10*6/uL Normal 3.95-5.11 [facility] Comment on above: Performed By: #### C DP, GLUSC #### [address] [address] [employer] Operator: Diego Bashir MD RBC morphology finding Nom (Bld) MICROCYTOSIS PRESENT Normal [facility] Comment on above: Performed By: #### C DP, GLUSC #### [address] [address] [employer] Operator: Diego Bashir MD WBC (Bld) [#/Vol] 9.2 10*3/uL Normal 3.5-11.3 [facility] Comment on above: Performed By: #### C DP, GLUSC #### [address] [address] [employer] Operator: Diego Bashir MD Glucose [place] 50gon 2022 Glucose [Mass/Vol] 142 mg/dL High 70-135 [facility] Comment on above: Performed By: #### C DP, GLUSC #### [address] [address] [employer] Operator: Diego Bashir MD Glu Administered via Glucola Normal [facility] Comment on above: Performed By: #### C DP, GLUSC #### [employer] [address] [place] [address] [employer] Operator: Diego Bashir MD Glucose tolerance, 1 houron 08-25-2022 GLU ADMN Glucola [facility] Glucose tolerance screen 50g 142 mg/dL High 70 - 135 mg/dL [facility] Interpretation and review of laboratory results Abnormal [facility] Echo 2D w doppler w color co mpleteon 08-16-2022 [facility] Transthoracic Echocardiography Report (TTE) Patient Name KARMEN Date of Study 08/16/2022 FABIEN Ovalle Date of 2000 Gender Female Age 21 year(s) Race Room Number Height: 62 inch, 157.48 cm Corporate ID [id number] Weight: 197 pounds, 89.4 kg # Patient Acct [id number] BSA: 1.9 m^2 BMI: 36.03 # kg/m^2 MR # [id number] [employer] Work,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 Procedure Date Date: 08/16/2022 Start: 08:31 AM Study Location: [facility] Indications:Lighthead edness. History / Tech. [...] Calculations: LVIDd:4.97 cm(3.7 - 5.6 cm) Diastolic Volume:95.41525 ml LVIDs:3.11 cm(2.2 - 4.0 cm) Systolic [...] velocity:0.13 m/s Lateral Wall E/E':5.[address] [facility] Jose A Chandler MD - 08/16/2022 [facility] Transthoracic Echocardiography Report (TTE) Patient Name KARMEN Date of Study 08/16/2022 FABIEN Ovalle Date of 2000 Gender Female Age 21 year(s) Race Room Number Height: 62 inch, 157.48 cm Corporate ID [id number] Weight: 197 pounds, 89.4 kg # Patient Acct [id number] BSA: 1.9 m^2 BMI: 36.03 # kg/m^2 MR # [id number] [employer] Work,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 Procedure Date Date: 08/16/2022 Start: 08:31 AM Study Location: [facility] Indications:Lighthead edness. History / Tech. [...] Calculations: LVIDd:4.97 cm(3.7 - 5.6 cm) Diastolic Volume:95.98328 ml LVIDs:3.11 cm(2.2 - 4.0 cm) Systolic [...] Wall E' velocity:0.13 m/s Lateral Wall E/E':5.26 [employer] Phone: Echo 2D w doppler w color co mpleteOrdered By: Jose A Chandler on 08-16-2022 [employer] Phone: Urinalysison 08-02-2022 Bilirubin Urine Negative NEGATIVE [place], UA Yellow Yellow [facility] Glucose, Ur Negative NEGATIVE [facility] Interpretation and review of laboratory results Abnormal [facility] Ketones Ql (U) Negative NEGATIVE [facility] Leukocyte esterase Test strip Ql (U) Negative NEGATIVE [facility] Nitrite, Urine Negative NEGATIVE [facility] pH, UA 7.0 5.0 - 9.0 [facility] Protein, UA Negative NEGATIVE [facility] Specific [place], UA Low 1.010 - 1.020 B ON [facility] Turbidity UA Clear Clear [facility] Urine Hgb Negative NEGATIVE [facility] Urobilinogen, Urine Normal Normal [facility] Urinalysis, Routineon 2022 Bilirubin, SemiQt,Ur Negative Normal NEG [facility] Comment on above: Performed By: #### U A #### [facility] [address] [place] [address] [place] [address] [employer] Operator: Artem Jones MD Blood, Urine Negative Normal NEG [facility] Comment on above: Performed By: #### U A #### [facility] [address] [place] [address] [place] [address] [employer] Operator: Artem Jones MD Clarity (U) Clear Normal CLEAR [facility] Comment on above: Performed By: #### U A #### [facility] [address] [place] [address] Dr. [place] [phone] [employer] Operator: Artem Jones MD Color (U) Yellow Normal YEL [facility] Comment on above: Performed By: #### U A #### [facility] [address] [place] [address] [place] [address] [employer] Operator: rAtem Jones MD Glucose Ql (U) Negative Normal NEG [facility] Comment on above: Performed By: #### U A #### [facility] [address] [place] [address] [place] [address] [employer] Operator: Artem Jones MD Ketones Ql (U) Negative Normal NEG [facility] Comment on above: Performed By: #### U A #### [facility] [address] [place] [address] Dr. [place], [place] [id number] [employer] Operator: Artem Jones MD Leukocyte esterase Test strip Ql (U) Negative Normal NEG [facility] Comment on above: Performed By: #### U A #### [facility] [address] [place] [address] Dr. [place], [place] [id number] [employer] Operator: Artem Jones MD Nitrite,Ur Negative Normal NEG [facility] Comment on above: Performed By: #### U A #### [address] [place], [place] [id number] [employer] Operator: Artem Jones MD PH,Ur 7.0 Normal 5.0-9.0 [facility] Comment on above: Performed By: #### U A #### [facility] [address] [place] [address] Dr. [place], [place] [phone] [employer] Operator: Artem Jones MD Protein Ql (U) Negative Normal NEG [facility] Comment on above: Performed By: #### U A #### [address] [place], [place] [id number] [employer] Operator: Artem Jones MD Spec. [place],Ur <1.005 Low 1.010-1.020 [facility] Comment on above: Performed By: #### U A #### [facility] [address] [place] [address] [place] [address] [employer] Operator: Artem Jones MD Urobilinogen,Ur Normal Normal NORM [facility] Comment on above: Performed By: #### U A #### [facility] [address] [place] [address] Dr. [place], [place] [id number] [employer] Operator: Artem Jones MD Cult,Urineon 02-23-2022 Cult,Urine Specimen Description .CLEAN CATCH URINE Culture KLEBSIELLA PNEUMONIAE >[id number] CFU/ML Report Status FINAL 02/23/2022 SUSCEPTIBILITY Organism [...] <=20 SUSCEPTIBLE Piperacillin/Tazobact am <=4 SUSCEPTIBLE Susceptible [facility] Comment on above: Performed By: #### U RC #### [place] [address] [place], [place] [id number] [employer] Operator: Diego Bashir MD [facility] [address] [place] [address] [employer] Operator: Artem Jones MD Chlamydia/GC DNA, Uron 02-22 Chlamydia Probe, Ur Negative Normal NEG [facility] Comment on above: Result Comment: [...] target. Performed By: #### U CGP #### [facility] [address] [place], [place] [id number] [employer] Operator: Diego Bashir MD Gonorrhea Probe, Ur Negative Normal NEG [facility] Comment on above: Result Comment: [...] target. Performed By: #### U CGP #### [address] [address] [employer] Operator: Diego Bashir MD HIV Ag/Abon 02-22-2022 HIV Ag/Ab Non-Reactive Normal [facility] Comment on above: Result Comment: No l aboratory evidence of HIV infection. If acute HIV infection is suspected, consider testing for HIV-1 RNA. Performed By: #### H IVCMB, AHCV #### [address] [address] [employer] Operator: Diego Bashir MD Hep C Abon 02-22-2022 Hep C Ab Non-Reactive Normal [facility] Comment on above: [...] Performed By: #### H IVCMB, AHCV #### [address] [address] [employer] Operator: Diego Bashir MD Profileon T.pallidum Ab Screen Non-Reactive Normal [facility] Comment on above: Result Comment: T. pallidum antibodies are not detected. There is no serological evidence of infection with T. pallidum (early primary syphilis cannot be excluded). Retest in 2-4 weeks if syphilis is clinically suspect. Performed By: #### P RENAT #### [address] [address] [employer] Operator: Diego Bashir MD [facility] [address] [place] [address] [employer] Operator: Artem Jones MD Hep B Surf Ag Non-Reactive Normal [facility] Comment on above: Performed By: #### P RENAT #### [address], [place] [phone] [employer] Operator: Diego Bashir MD [facility] [address] [place] [address] [employer] Operator: Artem Jones MD Rubella Ab, IgG 67.8 IU/mL Normal [facility] Comment on above: Result Comment: REFERENCE RANGE: <5.0 NON-REACTIVE (non-immune) 5.0 TO 9.9 EQUIVOCAL >=10.0 REACTIVE (immune) Performed By: #### P RENAT #### [address] [place], [place] [id number] [employer] Operator: Diego Bashir MD [facility] [address] [place] [address] [place] [address] [employer] Operator: Artem Jones MD Profile Ion 022 Absolute Eos # 0.10 [facility] Absolute Immature Granulocyte 0.05 [facility] Absolute Lymph # 2.73 [facility] Absolute Ware # 0.69 [facility] RS [facility] Basophils (Bld) [#/Vol] 0.07 10*3/uL [facility] Basophils/100 WBC (Bld) 1 % 0 - 2 % [facility] Eosinophils/100 WBC (Bld) 1 % 1 - 4 % [facility] Hematocrit (Bld) [Volume fraction] 37.3 % 36.3 - 47.1 % [facility] Hemoglobin (Bld) [Mass/Vol] 12.2 g/dL 11.9 - 15.1 g/dL [facility] Hepatitis B Surface Ag Non-Reactive NONREACTIVE [facility] Immature granulocytes/100 WBC (Bld) 1 % High 0 [facility] Interpretation and review of laboratory results Abnormal [facility] Lymphocytes/100 WBC (Bld) 28 % 24 - 43 % [facility] MCH (RBC) [Entitic mass] 28.0 pg 25.2 - 33.5 pg [facility] MCHC (RBC) [Mass/Vol] 32.7 g/dL 28.4 - 34.8 g/dL [facility] MCV (RBC) [Entitic vol] 85.7 fL 82.6 - 102.9 fL [facility] Monocytes/100 WBC (Bld) 7 % 3 - 12 % [facility] NRBC Automated 0.0 0.0 per 100 WBC [facility] Platelet distribution width (Bld) [Ratio] 12.7 % 11.8 - 14.4 % [facility] Platelet mean volume (Bld) [Entitic vol] 9.3 fL 8.1 - 13.5 fL [facility] Platelets (Bld) [#/Vol] 300 10*3/uL [facility] RBC (Bld) [#/Vol] 4.35 10*6/uL 3.95 - 5.11 m/uL [facility] Rubella virus IgG Ql (S) 67.8 IU/mL [facility] Comment on above: REFERENCE RANGE: <5.0 NON-REACTIVE (non-immune) 5.0 TO 9.9 EQUIVOCAL >=10.0 REACTIVE (immune) Segmented neutrophils/100 WBC (Bld) 62 % 36 - 65 % [facility] Segs Absolute 6.09 [facility] T. pallidum, IgG Non-Reactive NONREACTIVE [facility] Comment on above: T. pallidum antibodies are not detected. There is no serological evidence of infection with T. pallidum (early primary syphilis cannot be excluded). Retest in 2-4 weeks if syphilis is clinically suspect. WBC (Bld) [#/Vol] 9.7 10*3/uL [facility] HIV Screenon 02-21-2022 HIV Ag/Ab Non-Reactive NONREACTIVE [facility] Comment on above: No laboratory eviden ce of HIV infection. If acute HIV infection is suspected, consider testing for HIV-1 RNA. [facility] Hepatitis C Antibodyon 02-21 Hepatitis C Ab Non-Reactive NONREACTIVE [facility] Comment on above: The hepatitis C procedure [...] recommended by ordering HCV RNA by PCR. [facility] TYPE AND SCREENon 0 02-21-2022 ABO/Rh Positive [facility] Profileon 2 Abs. Basophil 0.07 k/uL Normal 0.00-0.20 [facility] Comment on above: Performed By: #### P RENAT #### [address] [place] [address] [employer] Operator: Diego Bashir MD [facility] [address] [place] [address] Dr. [place] [phone] [employer] Operator: Artem Jones MD Abs.Imm.Granulocyte 0.05 k/uL Normal 0.00-0.30 [facility] Comment on above: Performed By: #### P RENAT #### [address] [address] [employer] Operator: Diego Bashir MD [facility] [address] [place] [address] Dr. [place] [phone] [employer] Operator: Artem Jones MD Abs.Neutrophil (Seg) 6.09 k/uL Normal 1.50-8.10 [facility] Comment on above: Performed By: #### P RENAT #### [address] [address] [employer] Operator: Diego Bashir MD [facility] [address] [place] [address] [place] [address] [employer] Operator: Artem Jones MD Basophils/100 WBC (Bld) 1 % Normal 0-2 [facility] Comment on above: Performed By: #### P RENAT #### [address] [address] [employer] Operator: Diego Bashir MD [facility] [address] [place] [address] [place] [address] [employer] Operator: Artem Jones MD Eosinophils (Bld) [#/Vol] 0.10 10*3/uL Normal 0.00-0.44 [facility] Comment on above: Performed By: #### P RENAT #### [address] [address] [employer] Operator: Diego Bashir MD [facility] [address] [place] [address] Dr. [place] [phone] [employer] Operator: Artem Jones MD Eosinophils/100 WBC (Bld) 1 % Normal 1-4 [facility] Comment on above: Performed By: #### P RENAT #### [address] [address] [employer] Operator: Diego Bashir MD [facility] [address] [place] [address] Dr. [place] [phone] [employer] Operator: Artem Jones MD Erythrocyte distribution width (RBC) [Ratio] 12.7 % Normal 11.8-14.4 [facility] Comment on above: Performed By: #### P RENAT #### [address] [address] [employer] Operator: Diego Bashir MD [address] [place] [phone] [employer] Operator: Artem Jones MD Hematocrit (Bld) [Volume fraction] 37.3 % Normal 36.3-47.1 [facility] Comment on above: Performed By: #### P RENAT #### [address] [address] [employer] Operator: Diego Bashir MD [address] [place] [phone] [employer] Operator: Artem Jones MD Hemoglobin (Bld) [Mass/Vol] 12.2 g/dL Normal 11.9-15.1 [facility] Comment on above: Performed By: #### P RENAT #### [address] [address] [employer] Operator: Diego Bashir MD [facility] [address] [place] [address] Dr. [place] [facility]83 [employer] Operator: Artem Jones MD Immature granulocytes/100 WBC (Bld) 1 % High 0 [facility] Comment on above: Performed By: #### P RENAT #### [address] [address] [employer] Operator: Diego Bashir MD [facility] [address] [place] [address] Dr. [place] [facility]83 [employer] Operator: Artem Jones MD Lymphocytes (Bld) [#/Vol] 2.73 10*3/uL Normal 1.10-3.70 [facility] Comment on above: Performed By: #### P RENAT #### [address] [address] [employer] Operator: Diego Bashir MD [address] [place] [phone] [employer] Operator: Artem Jones MD Lymphocytes/100 WBC (Bld) 28 % Normal 24-43 [facility] Comment on above: Performed By: #### P RENAT #### [address] [address] [employer] Operator: Diego Bashir MD [address] Francisco [facility]83 [employer] Operator: Artem Jones MD MCH (RBC) [Entitic mass] 28.0 pg Normal 25.2-33.5 [facility] Comment on above: Performed By: #### P RENAT #### [address] [address] [employer] Operator: Diego Bashir MD [address] [place] [phone] [employer] Operator: Artem Jones MD MCHC (RBC) [Mass/Vol] 32.7 g/dL Normal 28.4-34.8 [facility] Comment on above: Performed By: #### P RENAT #### [address] [place] [address] [employer] Operator: Diego Bashir MD [facility] [address] [place] [address] Dr. [place], [place] [phone] [employer] Operator: Artem Jones MD MCV (RBC) [Entitic vol] 85.7 fL Normal 82.6-102.9 [facility] Comment on above: Performed By: #### P RENAT #### [address] [address] [employer] Operator: Diego Bashir MD [address] [place] [phone] [employer] Operator: Artem Jones MD Monocytes (Bld) [#/Vol] 0.69 10*3/uL Normal 0.10-1.20 [facility] Comment on above: Performed By: #### P RENAT #### [address] [address] [employer] Operator: Diego Bashir MD [address] [place] [phone] [employer] Operator: Artem Jones MD Monocytes/100 WBC (Bld) 7 % Normal 3-12 [facility] Comment on above: Performed By: #### P RENAT #### [address] [address] [employer] Operator: Diego Bashir MD [address] [place] [phone] [employer] Operator: Artem Jones MD Neutrophil (Seg) 62 % Normal 36-[address] [facility] Comment on above: Performed By: #### P RENAT #### [address] [address] [employer] Operator: Diego Bashir MD [facility] [address] [place] [address] Dr. [place], [place] [phone] [employer] Operator: Artem Jones MD NRBC Automated 0.0 per 100 WBC Normal 0.0 [facility] Comment on above: Performed By: #### P RENAT #### [address] [address] [employer] Operator: Diego Bashir MD [facility] [address] [place] [address] Dr. [place] [phone] [employer] Operator: Artem Jones MD Platelet mean volume (Bld) [Entitic vol] 9.3 fL Normal 8.1-13.5 [facility] Comment on above: Performed By: #### P RENAT #### [address] [address] [employer] Operator: Diego Bashir MD [address] [place] [phone] [employer] Operator: Artem Jones MD Platelets (Bld) [#/Vol] 300 10*3/uL Normal 138-453 [facility] Comment on above: Performed By: #### P RENAT #### [address] [address] [employer] Operator: Diego Bashir MD [address] [place] [address] [employer] Operator: Artem Jones MD RBC (Bld) [#/Vol] 4.35 10*6/uL Normal 3.95-5.11 [facility] Comment on above: Performed By: #### P RENAT #### [address] [address] [employer] Operator: Diego Bashir MD [facility] [address] [place] [address] [place] [place], [place] [id number] [employer] Operator: Artem Jones MD WBC (Bld) [#/Vol] 9.7 10*3/uL Normal 3.5-11.3 [facility] Comment on above: Performed By: #### P RENAT #### [address] [address] [employer] Operator: Diego Bashir MD [facility] [address] [place] [address] [employer] Operator: Artem Jones MD Type + Scrnon 02-21 Type + Scrn Negative Normal [facility] Comment on above: Performed By: #### P RTYS #### [facility] [address] [place] [address] [employer] Operator: Artem Jones MD Toxicology Scree, Urineon Amphetamine(s),Ur Negative Normal NEG [facility] Comment on above: Performed By: #### U CGP #### [address] [address] [employer] Operator: Diego Bashir MD Barbiturate(s),Ur Negative Normal NEG [facility] Comment on above: Performed By: #### U CGP #### [address] [address] [employer] Operator: Diego Bashir MD Benzodiazepine(s) Negative Normal NEG [facility] Comment on above: Performed By: #### U CGP #### [address] [address] [employer] Operator: Diego Bashir MD Buprenorphrine, Ur Negative Normal NEG [facility] Comment on above: Performed By: #### U CGP #### [address] [address] [employer] Operator: Diego Bashir MD Cannabinoid(s),Ur Negative Normal NEG [facility] Comment on above: Performed By: #### U CGP #### [address] [address] [employer] Operator: Diego Bashir MD Cocaine Metabolite Negative Normal [facility] Comment on above: Performed By: #### U CGP #### [address] [address] [employer] Operator: Diego Bashir MD Methadone Negative Normal [facility] Comment on above: Performed By: #### U CGP #### [address] [address] [employer] Operator: Diego Bashir MD Methamphetamine, Ur Negative Normal [facility] Comment on above: Performed By: #### U CGP #### [address] [address] [employer] Operator: Diego Bashir MD Opiate(s), Ur Negative Normal [facility] Comment on above: Performed By: #### U CGP #### [address] [address] [employer] Operator: Diego Bashir MD Oxycodone, Urine Negative Normal [facility] Comment on above: Performed By: #### U CGP #### [address] [address] [employer] Operator: Diego Bashir MD Phencyclidine, Ur Negative Normal [facility] Comment on above: Performed By: #### U CGP #### [address] [address] [employer] Operator: Diego Bashir MD Propoxyphene,Urine Negative Normal [facility] Comment on above: Performed By: #### U CGP #### [address] [address] [employer] Operator: Diego Bashir MD Tricyclic Antidepressants Negative Normal [facility] Comment on above: Result Comment: Drug screen results are to be used for medical purposes only. All positive results are unconfirmed. Testing for employment or legal uses should be sent to a reference laboratory for confirmation. Performed By: #### U CG #### [facility] [address] [place] [address] [employer] Operator: Diego Bashir MD Urine Drug Screen, Chad gonzalez 02-21-2022 Amphetamine Screen, Ur Negative NEGATIVE [facility] Barbiturate Screen, Ur Negative NEGATIVE [facility] Benzodiazepine Screen, Urine Negative NEGATIVE [facility] Buprenorphine Urine Negative NEGATIVE [facility] Cannabinoid Scrn, Ur Negative NEGATIVE [facility] Cocaine Metabolite, Urine Negative NEGATIVE [facility] Methadone Screen, Urine Negative NEGATIVE [facility] Methamphetamine, Urine Negative NEGATIVE [facility] Opiates, Urine Negative NEGATIVE [facility] Oxycodone Screen, Ur Negative NEGATIVE [facility] Phencyclidine, Urine Negative NEGATIVE [facility] Propoxyphene, Urine Negative NEGATIVE [facility] Tricyclic Antidepressants, Urine Negative NEGATIVE [facility] Comment on above: Drug screen results are to be used for medical purposes only. All positive results are unconfirmed. Testing for employment or legal uses should be sent to a reference laboratory for confirmation. [facility] TILT TABLE TESTon 01-26-2022 TILT TABLE TEST [address] [id number] TILT TABLE TEST PATIENT NAME: FABIEN PERAZA : 2000 MED REC NO: [id number] ROOM: ACCOUNT NO: [id number] ADMIT DATE: 01/25/2022 PROVIDER: Jade Soto MD [...] up with their primary care physician and/or underwriting specialist as previously scheduled. STUDY CONCLUSIONS: Abnormal head [...] treatment of this condition. JADE SOTO MD CHASITY/DARCY_SRIDEVIIT Doc#: Unknown CC: Nick Brown, [employer] Normal [facility] Basic Metabolic Panelon 12-17 Anion gap [Moles/Vol] 11 mmol/L 9 - 17 mmol/L [facility] Calcium [Mass/Vol] 9.6 mg/dL 8.6 - 10.4 mg/dL [facility] Chloride [Moles/Vol] 104 mmol/L 98 - 107 mmol/L [facility] CO2 [Moles/Vol] 24 mmol/L 20 - 31 mmol/L [facility] Creatinine [Mass/Vol] 0.74 mg/dL 0.50 - 0.90 mg/dL [facility] GFR >60 >60 mL/min [facility] GFR Non- >60 >60 mL/min [facility] Glucose [Mass/Vol] 91 mg/dL 70 - 99 mg/dL [facility] Potassium [Moles/Vol] 4.0 mmol/L 3.7 - 5.3 mmol/L [facility] Sodium [Moles/Vol] 139 mmol/L 135 - 144 mmol/L [facility] Urea nitrogen (BldV) [Mass/Vol] 14 mg/dL 6 - 20 mg/dL [facility] Urea nitrogen/Creatinine (Bld) [Mass ratio] 19 [facility] Basic Metabolic Profon 01-13 (cont.) Normal [facility] Comment on above: Result Comment: Aver age GFR for 20-29 years old: 116 mL/min/1.73sq m Chronic Kidney Disease: <60 mL/min/1.73sq m Kidney failure: <15 mL/min/1.73sq m eGFR calculated using average adult body mass. Additional eGFR calculator available at: http://www.CoinJar.Homesnap/multiple_crcl_2012.htm Performed By: #### B RIC, CBC #### [facility] [address] [place] [address] [employer] Operator: Artem Jones MD Anion gap [Moles/Vol] 11 mmol/L Normal -17 [facility] Comment on above: Performed By: #### Valarie LARIOS, CBC #### [facility] [address] [place] [address] [employer] Operator: Artem Jones MD BUN/CRE Ratio 19 Normal - [facility] Comment on above: Performed By: #### B RIC, CBC #### [facility] [address] [place] [address] [employer] Operator: Artem Jones MD Calcium [Mass/Vol] 9.6 mg/dL Normal 8.6-10.4 [facility] Comment on above: Performed By: #### B MP, CBC #### [facility] [address] [place], [place] [id number] [employer] Operator: Artem Jones MD Chloride [Moles/Vol] 104 mmol/L Normal 98-107 [facility] Comment on above: Performed By: #### B MP, CBC #### [facility] [address] [place] [address] [employer] Operator: Artem Jones MD CO2 [Moles/Vol] 24 mmol/L Normal 20-31 [facility] Comment on above: Performed By: #### B MP, CBC #### [facility] [address] [place], [place] [address] [employer] Operator: Artem Jones MD Creatinine [Mass/Vol] 0.74 mg/dL Normal 0.50-0.90 [facility] Comment on above: Performed By: #### B MP, CBC #### [facility] [address] [place], [place] [id number] [employer] Operator: Artem Jones MD GFR, Amer >60 Normal >[address] [facility] Comment on above: Performed By: #### B MP, CBC #### [facility] [address] [place], [place] [id number] [employer] Operator: Artem Jones MD GFR,non Amer >60 Normal >60 [facility] Comment on above: Performed By: #### B MP, CBC #### [facility] [address] [place] [address] [employer] Operator: Artem Jones MD Glucose [Mass/Vol] 91 mg/dL Normal 70-99 [facility] Comment on above: Performed By: #### B MP, CBC #### [facility] [address] [place], [place] [id number] [employer] Operator: Artem Jones MD Potassium [Moles/Vol] 4.0 mmol/L Normal 3.7-5.3 [facility] Comment on above: Performed By: #### B MP, CBC #### [facility] [address] [place], [place] [address] [employer] Operator: Artem Jones MD Sodium [Moles/Vol] 139 mmol/L Normal 135-144 [facility] Comment on above: Performed By: #### B MP, CBC #### [address] [place], [place] [id number] [employer] Operator: Artem Jones MD Staging: Normal [facility] Comment on above: Result Comment: Stag e 1: Some kidney damage normal GFR Stage 2: Mild kidney damage GFR 60-89 Stage 3: Moderate kidney damage GFR 30-59 Stage 4: Severe kidney damage GFR 15-29 Stage 5: Severe kidney damage GFR <15 ESRD - chronic treatment by dialysis or transplant Performed By: #### B MP, CBC #### [address] [place], [place] [id number] [employer] Operator: Artem Jones MD Urea nitrogen [Mass/Vol] 14 mg/dL Normal 6-20 [facility] Comment on above: Performed By: #### B MP, CBC #### [facility] [address] [place] [address] [place]. [place], [place] [id number] [employer] Operator: Artem Jones MD CBCon 01-13-2022 Erythrocyte distribution width (RBC) [Ratio] 12.4 % Normal 11.8-14.4 [facility] Comment on above: Performed By: #### B MP, CBC #### [address] [place] [address] [employer] Operator: Artem Jones MD Hematocrit (Bld) [Volume fraction] 39.7 % Normal 36.3-47.1 [facility] Comment on above: Performed By: #### B MP, CBC #### [facility] [address] [place] [address] [place] [address] [employer] Operator: Artem Jones MD Hemoglobin (Bld) [Mass/Vol] 13.0 g/dL Normal 11.9-15.1 [facility] Comment on above: Performed By: #### B MP, CBC #### [address] [place], [facility] [employer] Operator: Artem Jones MD MCH (RBC) [Entitic mass] 27.7 pg Normal 25.2-33.5 [facility] Comment on above: Performed By: #### B MP, CBC #### [address] [place] [address] [employer] Operator: Artem Jones MD MCHC (RBC) [Mass/Vol] 32.7 g/dL Normal 28.4-34.8 [facility] Comment on above: Performed By: #### B MP, CBC #### [address] [place] [address] [employer] Operator: Artem Jones MD MCV (RBC) [Entitic vol] 84.6 fL Normal 82.6-102.9 [facility] Comment on above: Performed By: #### B MP, CBC #### [address] [place] [address] [employer] Operator: Artem Jones MD NRBC Automated 0.0 per 100 WBC Normal 0.0 [facility] Comment on above: Performed By: #### B MP, CBC #### [address] [place] [address] [employer] Operator: Artem Jones MD Platelet mean volume (Bld) [Entitic vol] 9.1 fL Normal 8.1-13.5 [facility] Comment on above: Performed By: #### B MP, CBC #### [facility] [address] [place], [place] [id number] [employer] Operator: Artem Jonse MD Platelets (Bld) [#/Vol] 275 10*3/uL Normal 138-453 [facility] Comment on above: Performed By: #### B MP, CBC #### [facility] [address] [place] [address] [employer] Operator: Artem Jones MD RBC (Bld) [#/Vol] 4.69 10*6/uL Normal 3.95-5.11 [facility] Comment on above: Performed By: #### B MP, CBC #### [facility] [address] [place], [place] [id number] [employer] Operator: Artem Jones MD WBC (Bld) [#/Vol] 8.2 10*3/uL Normal 3.5-11.3 [facility] Comment on above: Performed By: #### B MP, CBC #### [facility] [address] [place] [address] [employer] Operator: Artem Jones MD Hematocrit (Bld) [Volume fraction] 39.7 % 36.3 - 47.1 % [facility] Hemoglobin (Bld) [Mass/Vol] 13.0 g/dL 11.9 - 15.1 g/dL [facility] MCH (RBC) [Entitic mass] 27.7 pg 25.2 - 33.5 pg [facility] MCHC (RBC) [Mass/Vol] 32.7 g/dL 28.4 - 34.8 g/dL [facility] MCV (RBC) [Entitic vol] 84.6 fL 82.6 - 102.9 fL [facility] NRBC Automated 0.0 0.0 per 100 WBC [facility] Platelet distribution width (Bld) [Ratio] 12.4 % 11.8 - 14.4 % [facility] Platelet mean volume (Bld) [Entitic vol] 9.1 fL 8.1 - 13.5 fL [facility] Platelets (Bld) [#/Vol] 275 10*3/uL [facility] RBC (Bld) [#/Vol] 4.69 10*6/uL 3.95 - 5.11 m/uL [facility] WBC (Bld) [#/Vol] 8.2 10*3/uL [facility] Laboratory - Chemistry and C hemistry - challengeon 01-13-2022 GFR/1.73 sq M.predicted MDRD (S/P/Bld) [Vol rate/Area] [facility] Comment on above: Average GFR for 20-2 9 years old: 116 mL/min/1.73sq m Chronic Kidney Disease: <60 mL/min/1.73sq m Kidney failure: <15 mL/min/1.73sq m eGFR calculated using average adult body mass. Additional eGFR calculator available at: http://www.edupristine/multiple_crcl_2011.htm Stage 1: Some kidney damage normal GFR Stage 2: Mild kidney damage GFR 60-89 Stage 3: Moderate kidney damage GFR 30-59 Stage 4: Severe kidney damage GFR 15-29 Stage 5: Severe kidney damage GFR <15 ESRD - chronic treatment by dialysis or transplant PROGRESSon 10-12-2017 [facility] NOTES Normal [facility] PROGRESSon 09-21-2017 [facility] NOTES Normal [facility] Vital Signs Date Time Vital Sign Value Performing Clinician Faci lity 09-26-2022 08:16-0400 Body temperature 98.1 [degF] Zak Bejarano MD Work Phone: [facility] 09-26-2022 08:16-0400 Diastolic blood pressure 80 mm[Hg] Zak Bejarano MD Work Phone: [facility] 09-26-2022 08:16-0400 Heart rate 81 /min Zak Bejarano MD Work Phone: [facility] 09-26-2022 08:16-0400 Respiratory rate 16 /min Zak Bejarano MD Work Phone: [facility] 09-26-2022 08:16-0400 Systolic blood pressure 130 mm[Hg] Zak Bejarano MD Work Phone: [facility] [employer] [facility] 09-25-2022 08:04-0400 SaO2% (BldA) [Mass fraction] 99 % Zak Bejarano MD Work Phone: [facility] [employer] [facility] 08-02-2022 18:01-0500 Body height 157.5 cm Pete Sol IAN - CNAlison Work Phone: [facility] [employer] [facility] 08-02-2022 18:01-0500 Body mass index (BMI) [Ratio] 35.85 kg/m2 Pete Sol IAN - CNAlison Work Phone: [facility] [employer] [facility] 08-02-2022 18:01-0500 Body weight 88.91 kg Pete Sol [employer] - CNAlison Work Phone: [facility] [employer] [facility] 08-02-2022 17:37-0500 Diastolic blood pressure 70 mm[Hg] Pete Sol APRN - CNAlison Work Phone: [facility] [employer] [facility] 08-02-2022 17:37-0500 Heart rate 93 /min Pete Sol APRN Yanet CNAlison Work Phone: [facility] [employer] [facility] 08-02-2022 17:37-0500 Respiratory rate 18 /min Pete Sol APRN - CNAlison Work Phone: [facility] [employer] [facility] 08-02-2022 17:37-0500 Systolic blood pressure 118 mm[Hg] Pete Sol IAN - CNAlison Work Phone: [facility] [employer] [facility] 08-02-2022 17:17-0500 Body temperature 97.9 [degF] Pete Sol IAN - CNAlison Work Phone: [facility] [employer] [facility] 01-14-2020 10:40-0400 BMI (Body Mass Index) 30.2 kg/m2 [facility] Work Phone: 01-14-2020 10:40-0400 Body weight 74.84 kg [facility] Work Phone: 01-14-2020 [id number] BSA (Body Surface Area) 1.76 m2 [facility] Work Phone: 01-14-2020 [id number] Height 157.48 cm [facility] Work Phone: Encounters Encounter Date Encounter Type Care Provider Facility Start: 10-11-2023 End: 10-11-2023 ambulatory REINALDO ARRIETA Not Available Start: 09-07-2023 End: 09-07-2023 ambulatory MELO CAROLE Not Available Start: 08-09-2023 End: 08-09-2023 ambulatory REINALDO ARRIETA Not Available Start: 07-06-2023 End: 07-06-2023 ambulatory MELO CAROLE Not Available Start: 06-07-2023 End: 06-07-2023 ambulatory REINALDO ARRIETA Not Available Start: 09-24-2022 End: 09-26-2022 Evaluation and management of inpatient Zak Bejarano MD Work Phone: [email or web address] Start: 09-14-2022 End: 09-15-2022 ambulatory NICK Moore [facility] Start: 09-14-2022 End: 09-14-2022 Subsequent hospital visit by physician Nick Brown APRN - [employer] Work Phone: [facility] Comment on above: 36 weeks gestation o f Start: 09-14-2022 End: 09-14-2022 ambulatory N[facility] Start: 09-14-2022 End: 09-14-2022 Subsequent hospital visit by physician Nick Brown APRN - [employer] Work Phone: [facility] Laboratory Comment on above: Elevated blood press ure affecting , antepartum Start: 09-08-2022 End: 09-08-2022 ambulatory ADITYA Moore [facility] Start: 08-25-2022 End: 08-26-2022 ambulatory JACQUI Moore [facility] Start: 08-25-2022 End: 08-25-2022 Subsequent hospital visit by physician Nick Holt CNP Work Phone: [facility] [employer] OPERATOR Comment on above: Encounter for superv ision of normal first in second trimester Start: 08-16-2022 End: 08-17-2022 [facility]ulatory [facility] Start: 08-16-2022 End: 08-16-2022 Subsequent hospital visit by physician [facility] Echo Room [facility] Echocardiography Comment on above: Light headedness; POTS (postural orthostatic tachycardia syndrome); Abnormal tilt table test Light headedness; POTS (postural orthostatic tachycardia syndrome); Abnormal tilt table test; 29 weeks gestation of ; Chest pain, unspecified type Start: 08-02-2022 End: 08-02-2022 ambulatory [facility] Start: 08-02-2022 End: 08-02-2022 Subsequent hospital visit by physician Pete Sol APRN - [place] Work Phone: [facility] Labor and Delivery Start: 02-21-2022 End: 02-22-2022 ambulatory [facility] Start: 02-21-2022 End: 02-21-2022 Subsequent hospital visit by physician Nick Holt CNP Work Phone: [facility] Laboratory Comment on above: Encounter for superv ision of normal , antepartum, unspecified ; Positive urine test Start: 01-25-2022 End: 01-26-2022 ambulatory [facility] [place] [facility] Start: 01-25-2022 End: 01-25-2022 Subsequent hospital visit by physician [facility] Pupil Personnel Worker [facility] EKG Comment on above: Heart palpitations Start: 01-13-2022 End: 01-14-2022 ambulatory [facility] Start: 01-13-2022 End: 01-13-2022 Subsequent hospital visit by physician Nick Holt CNP Work Phone: [facility] Laboratory Comment on above: Heart palpitations Start: 03-15-2021 End: 03-15-2021 Patient encounter procedure [facility] Toribio [facility] Start: 03-15-2021 End: 03-15-2021 Subsequent hospital visit by physician Cari Toribio [facility] Comment on above: Women's annual routi ne gynecological examination Start: 01-14-2020 End: 01-14-2020 Patient encounter procedure Meri Silva Work Phone: [facility] Work Phone: Start: 01-14-2020 End: 01-14-2020 Telemedicine consultation with patient Radha Cuevas Work Phone: [facility] Work Phone: Start: 10-12-2017 [facility] Start: 09-21-2017 [facility] Procedures Date Procedure Procedure Detail Performing [...] End: 09-14-2022 Comprehensive metabolic panel Elizabeth Galvez [employer] - CNM Work Phone: Start: 08-25-[address] gtt 3 specimens Jacqui Russell [employer] - CNM Work Phone: Start: 08-16-2022 Echo tthrc r-t 2d w/wom-mode compl spec&colr d Jade Soto MD Work Phone: Start: 08-02-2022 Urnls dip stick/tabl et rgnt auto w/o microscopy Pete Sol [facility] Work Phone: Start: 02-21-2022 Antibody screen Nick Stephanie [facility] [employer] [facility] Work Phone: Start: 02-21-2022 End: 02-21-2022 Antibody hiv-1&hiv-2 single result Pete Sol [facility] Work Phone: Start: 02-21-2022 Drug screen, qualitate/multi Pete Sol [facility] Work Phone: Start: 01-13-2022 Basic metabolic pane l calcium total Nick Stein Stephanie [facility] [employer] [facility] Work Phone: Start: 03-15-2021 Microscopic observat ion [Identifier] in Cervix by Cyto stain Nick Stephanie [facility] Work Phone: Start: 01-14-2020 MIGRAINE HEADACHE Gertrude Cuevas NEGATED: Highlighted row has not occurred!Start: 01-14-2020 reported prior surgical / procedural history Radha Cuevas Plan of Treatment Date Care Activity Detail Author Start: 03-15-2024 Screening for malignant neoplasm of cervix Pap smear [employer] [facility] Start: 05-09-2023 Depression Screen [facility] Start: 05-09-2023 Influenza vaccination Flu vaccine (#1) [facility] [facility] Comment on above: Postponed from 02/14/2022 (Patient Refus ed) Start: 02-21-2023 Screening for Chlamydia trachomatis Chlamydia/GC screen [employer] [facility] Start: 02-03-2023 Depression Screen Depression Screen [facility] [employer] Start: 01-13-2023 COVID-19 Vaccine (#1) COVID-19 Vaccine (#1) [employer] [facility] Comment on above: Postponed from 05/17/2000 (Patient Refus ed) Start: 01-13-2023 COVID-19 Vaccine (1) COVID-19 Vaccine (1) [employer] [facility] Comment on above: Postponed from 11/14/2004 (Patient Refus ed) Start: 01-13-2023 Depression Screen Depression Screen JUAN [employer]NA [facility] [employer] Start: 01-13-2023 DTaP/Tdap/Td vaccine (1 - Tdap) DTaP/Tdap/Td vaccine (1 - Tdap) [facility] Comment on above: Postponed from 11/14/2018 (Patient Refus ed) Start: 01-13-2023 Hepatitis C screening Hepatitis C screen [facility] Comment on above: Postponed from 11/14/2017 (Patient Refus ed) Start: 01-13-2023 HIV screening HIV screen [facility] [employer] [facility] Comment on above: Postponed from 11/14/2014 (Patient Refus ed) Start: 01-13-2023 HPV vaccine (1 - 2-dose series) HPV vaccine (1 - 2-dose series) [facility] Comment on above: Postponed from 11/14/2010 (Patient Refus ed) Start: 11-30-2022 End: 11-30-2022 Patient encounter procedure 11/30/2022 Office Visit Cardiology Samantha Mora PA-C [address] [place] [address] [facility] Start: 10-31-2022 End: 10-31-2022 ambulatory 10/31/2022 Visit Obstetrics and Gynecology Jacqui Russell APRN - CNM [address] [place] [address] [facility]etrics & Gynecology Start: 09-21-2022 End: 09-21-2022 Patient encounter procedure 09/21/2022 Office Visit Cardiology Samantha Mora PA-C [address] [place] [address] [facility] Start: 09-20-2022 End: 09-20-2022 Patient encounter procedure 09/20/2022 Routine Obstetrics and Gynecology Jacqui Russell APRN - CNM [address] [place] [address] [facility] Obstetrics & Gynecology Start: 09-14-2022 End: 09-14-2022 Patient encounter procedure 09/14/2022 Routine Obstetrics and Gynecology Elizabeth Galvez, CUSHION MAKER HAND - CNM [address] [facility] [address] [place] [address] [facility] Obstetrics & Gynecology Start: 09-08-2022 End: 09-08-2022 Patient encounter procedure 09/08/2022 Routine Obstetrics and Gynecology Aditya Galvan CUSHION MAKER HAND - DIRECTOR OF CONSUMER AFFA[employer] [address] [address] [facility] Obstetrics & Gynecology Start: 09-08-2022 End: 09-08-2022 Professional / ancillary services management 09/08/2022 Ancillary Procedure Obstetrics and Gynecology [facility]etrics [facility] Gynecology Start: 08-25-2022 End: 08-25-2022 Patient encounter procedure 08/25/2022 Routine Obstetrics and Gynecology Jacqui Russell, CUSHION MAKER HAND - CNM [address] [place] [address] [facility] Obstetrics & Gynecology Start: 08-16-2022 End: 08-16-2022 Patient encounter procedure [facility] Start: 08-10-2022 End: 08-10-2022 Patient encounter procedure 08/10/2022 Routine Obstetrics and Gynecology Arin Sykes DO [address] [place] [address] [facility]stetrics [facility] Gynecology Start: 08-10-2022 End: 08-10-2022 Professional / ancillary services management 08/10/2022 Ancillary Procedure Obstetrics and Gynecology [facility] Start: 08-09-2022 End: 08-09-2022 Patient encounter procedure 08/09/2022 Office Visit Primary Care Nick Brown, CUSHION MAKER HAND - TRACK LAYER HEAD [address] [place], [place] [id number] [facility] Start: 08-03-2022 End: 08-03-2022 Patient encounter procedure 08/03/2022 Routine Obstetrics and Gynecology LeonorElizabeth, CUSHION MAKER HAND - CNM [address] [place], [place] [id number] [facility] Obstetrics & Gynecology Start: 05-09-2022 End: 05-09-2022 Patient encounter procedure 05/09/2022 Office Visit Primary Care Nick Brown, CUSHION MAKER HAND - TRACK LAYER HEAD [address] [place] [address] [facility] Start: 04-04-2022 End: 04-04-2022 Patient encounter procedure 04/04/2022 Routine Obstetrics and Gynecology Pete Sol, CUSHION MAKER HAND - CNM [address] [facility] [address] [place] [address] [facility] OBSTETRICS & [facility]YNECOLOGY [facility] Start: 03-17-2022 Influenza vaccination [facility] Start: 02-03-2022 End: 02-03-2022 Patient encounter procedure 02/03/2022 Office Visit Primary Care Nick Brown CUSHION MAKER HAND - TRACK LAYER HEAD [address] [place] [address] [facility] Start: 03-17-2021 Influenza vaccination Flu vaccine (#1) [facility] [employer] Phone: Start: 11-14-2020 Screening for malignant neoplasm of cervix Cervical cancer [facility] [employer] Phone: Start: 02-13-2020 _SARS-CoV-2 COVID19 test [facility] Work Phone: Start: 01-14-[address] up Testing [facility] Work Phone: Start: 11-14-2018 DTaP/Tdap/Td vaccine (1 - Tdap) DTaP/Tdap/Td vaccine (1 - Tdap) [employer] Phone: Start: 2015 Screening for Chlamydia trachomatis Chlamydia screen [employer] Start: 11-14-2014 HIV screening HIV screen [employer] Phone: Start: 2011 COVID-19 Vaccine (1) COVID-19 Vaccine (1) [employer] Phone: Start: 11-14-2010 HPV vaccine (1 - 2-dose series) HPV vaccine (1 - 2-dose series) [employer] Phone: Start: 11-14-2000 Varicella vaccine (1 of 2 - 2-dose childhood series) Varicella vaccine (1 of 2 - 2-dose childhood series) [employer] Phone: Start: 1999 Hepatitis C screening Hepatitis C screen [employer] Phone: End: 08-02-2022 Bacteria identified in Urine by Culture Urine culture Microbiology Routine One Time for 1 Occurrences starting 08/02/2022 until 08/02/2022 [email or web address] Phone: Comment on above: One Time for 1 Occurrences starting 07/17 until 08/02/2022 End: 09-24-2022 Bacteria identified in Urine by Culture Urine culture Microbiology Routine One Time for 1 Occurrences starting 09/24/2022 until 09/24/2022 [email or web address] Phone: Comment on above: One Time for 1 Occurrences starting 09/14 until 09/24/2022 End: 02-21-2022 C.trachomatis N.gonorrhoeae DNA, Urine [email or web address] Phone: Comment on above: 1 Occurrences starting 02/21/2022 until 02/21/2022 End: 08-16-2022 Continuous cardiac monitoring, >2 up to 14 days Continuous cardiac monitoring, >2 up to 14 days Cardiac Services Routine Light headedness POTS (postural orthostatic tachycardia syndrome) Abnormal tilt table test 29 weeks gestation of Chest pain, unspecified type 1 Occurrences starting 08/16/2022 until 08/16/2022 [email or web address] Phone: Comment on above: 1 Occurrences starting 08/16/2022 until 08/16/2022 Continuous pulse oximetry Pulse oximetry, continuous while on epidural Respiratory Care Routine Every 4hr until discontinued starting 09/25/2022 [email or web address] Phone: Comment on above: Every 4hr until discontinued starting End: 09-14-2022 Culture, Strep B Screen, Vaginal/Rectal [email or web address] Phone: Comment on above: 1 Occurrences starting 09/14/2022 until 09/14/2022 End: 02-21-2022 Culture, Urine [employer] Phone: Comment on above: 1 Occurrences starting 02/21/2022 until 02/21/2022 End: 03-15-2021 Cytopathology procedure, preparation of smear, genital source [facility] Lab Routine Women's annual routine gynecological examination 1 Occurrences starting 03/15/2021 until 03/15/2021 [employer] Phone: Comment on above: 1 Occurrences starting 03/15/2021 until 03/15/2021 nonstress test nonst ress test OB Routine Daily until discontinued starting 08/03/2022 [email or web address] Phone: Comment on above: Daily until discontinued starting 2022 nonstress test nonst ress test OB Routine Daily until discontinued starting 09/25/2022 [email or web address] Phone: Comment on above: Daily until discontinued starting 2022 Nonrebreather mask oxygen Nonrebreather mask oxygen Respiratory Care Routine As directed - RT (PRN) until discontinued starting 08/02/2022 [email or web address] Phone: Comment on above: As directed - RT (PRN) until discontinue d starting 08/02/2022 Nonrebreather mask oxygen Nonrebreather mask oxygen Respiratory Care Routine As directed - RT (PRN) until discontinued starting 09/24/2022 [email or web address] Phone: Comment on above: As directed - RT (PRN) until discontinue d starting 09/24/2022 Nonrebreather mask oxygen Nonrebreather mask oxygen Respiratory Care Routine As directed - RT (PRN) until discontinued starting 09/24/2022 [email or web address] Phone: Comment on above: As directed - RT (PRN) until discontinue d starting 09/24/2022 Oxygen therapy [Minimum Data Set] Initiate Oxygen Therapy Protocol while on epidural Respiratory Care Routine Daily until discontinued starting 09/24/2022 [email or web address] Phone: Comment on above: Daily until discontinued starting 2022 End: 09-25-2022 SURGICAL PATHOLOGY REPORT SURGICAL PATHOLOGY REPORT Lab Routine Once for 1 Occurrences starting 09/25/2022 until 09/25/2022 [email or web address] Phone: Comment on above: Once for 1 Occurrences starting 09/26/19 until 09/25/2022 End: 08-02-2022 SVE SVE Point of Care Testing Routine One Time for 1 Occurrences starting 08/02/2022 until 08/02/2022 [email or web address] Phone: Comment on above: One Time for 1 Occurrences starting 07/17 until 08/02/2022 End: 09-24-2022 SVE SVE Point of Care Testing Routine One Time for 1 Occurrences starting 09/24/2022 until 09/24/2022 [email or web address] Phone: Comment on above: One Time for 1 Occurrences starting 09/14 until 09/24/2022 Immunizations Immunization Date Immunization Notes Care Provider [facility] 09-25-2022 diphtheria, tetanus toxoids and acellular pertussis vaccine, unspecified formulation Zak Bejarano MD Work Phone: [facility] Work Phone: Payers Date Payer Category Payer Unknown [id number] 1.2.84 [id number] 2014 Unknown [id number]. [id number] 1999 Unknown [id number] 2.16.8 40.1.783790.3.579.2.173 1999 Unknown [id number] 2.16.8 40.1.576302.3.579.2.173 1999 Unknown [id number] 2.16.8 40.1.038268.3.579.2.173 1999 Unknown [id number] 2.16.8 40.1.504235.3.579.2.173 1999 Unknown [id number] 2.16.8 40.1.220634.3.579.2.173 1999 Unknown [id number] 2.16.8 40.1.327301.3.579.2.173 1999 Unknown [id number] 2.16.8 40.1.623453.3.579.2.173 1999 Unknown [id number] 2.16.8 40.1.614018.3.579.2.173 1999 Unknown [id number] 2.16.8 40.1.196336.3.579.2.173 1999 Unknown [id number] 2.16.8 40.1.986476.3.579.2.173 1999 Unknown [id number] 2.16. 840.1.201053.3.579.2.175 1999 Unknown [id number] 2.16. 840.1.305100.3.579.2.175 1999 Unknown [id number] 2.16. 840.1.308905.3.579.2.175 1999 Unknown [id number] 2.16. 840.1.279511.3.579.2.175 1999 Unknown [id number] 2.16.84 0.1.808400.3.579.2.1259 1999 Unknown [id number] 2.16.84 0.1.416028.3.579.2.1259 1999 Unknown [id number] 2.16.84 0.1.091902.3.579.2.9 1999 Unknown [id number] 2.16.840 .1.345104.3.579.2.9 1999 Unknown [id number] 2.16.840 .1.149776.3.579.2.1259 Self-pay [id number] 2.16.840 .[id number] Social History Date Type Detail Facility Assertion Gender identity finding (finding) [facility] Work Phone: Assertion Finding of sexua l orientation (finding) [facility] Work Phone: Tobacco smoking status Unknown if ever smoked [facility] Work Phone: Start: 05-18-2012 End: 03-15-2021 Tobacco smoking status NHIS Never smoker [employer] Phone: Start: 05-18-2012 End: 03-15-2021 Tobacco use and exposure Never used [employer] Start: 03-15-2021 End: 09-25-2022 Alcohol intake Current non-drinker of alcohol (finding) [employer] Phone: Start: 1999 [facility]igned [facility] Start: 01-13-2022 History SDOH Financial 5 [facility] [employer] Work Phone: Start: 01-13-2022 History SDOH Food Worry 1 [facility] Work Phone: Start: 01-19-2022 JUAN Cristina [employer] Work Phone: Start: 07-23-2022 End: 09-24-2022 Exposure to SARS-CoV-2 (event) Not sure [facility] [employer] Work Phone: NEGATED: Highlighted row Assertion Current drinker of alcohol (finding) [facility] Work Phone: NEGATED: Highlighted row Assertion Finding relating to drug misuse behavior (finding) [facility] Work Phone: NEGATED: Highlighted row Assertion Exposure to pollution (event) [facility] Work Phone: NEGATED: Highlighted row Assertion Tobacco user (finding) [facility] Work Phone: Clinical Notes 01-25-2022 to 09-26-2022 Discharge InstructionsZenaida Grant APRN - AYANNA - 09/26/2022 9:02 AM EDIAN Russo CNM - 09/26/2022 8:56 AM Javier Bejarano MD - 09/24/2022 10:40 PM ESTAllyson Work - 08/16/2022 10:00 AM EST Note Date & Type Note Facility 09-26-2022 Hospital Discharg e instructions Kiran Gamino RN - 09/26/2022 9:55 AM EDT Follow-up with your OB doctor as specified. [facility] Department phone: Dr. Asya URENAM Dr. Skye Sol CN [address] [facility] 201 [facility] [address] [address] Skye Russell CN [address] [facility] [address] [phone] Kenya Tinajero, MSN, CUSHION MAKER HAND, CNM [address] [address] [address] Shields [address] [facility] [address] Pete Almita CNM [address] [place] [address] [place] [address] Zenaida Grant CNM [address] [place] [address] [place] [address] [phone] DIET Eat a well balanced diet focusing on foods high in fiber and protein. Drink plenty of fluids especially water. To avoid constipation you may take a mild stool softener as recommended by your doctor or civil engineering manager. ACTIVITY Gradually increase your activity. Resume exercise regimen only after advice by your doctor or civil engineering manager. Avoid lifting anything heavier than a gallon of milk for SIX weeks. Avoid driving until your doctor or civil engineering manager has given their approval. Rise slowly from [...] medications as recommended by your doctor or civil engineering manager for pain If you develop a warm, [...] vitamins as directed by your doctor or civil engineering manager. Refer to the booklet in the folder/binder for more information. If you feel you need more assistance or have questions, please call Stacey Rodriguez IBCLC, outside solar sales consultant, at or the OB department to [...] your calf. documented in this encounter [employer] Phone: 09-26-2022 Hospital course Narrative Obstetrical Discharge [...] NONREACTIVE Final HIV: No results found for: [id number] Results for orders placed or performed during the hospital encounter of 09/24/22 Urinalysis Result Value Ref Range Color, UA Yellow Yellow Turbidity UA Clear Clear Glucose, Ur NEGATIVE NEGATIVE Bilirubin Urine NEGATIVE NEGATIVE Ketones, Urine TRACE (A) NEGATIVE Specific [place], UA 1.010 1.010 - 1.020 Urine Hgb [...] # 2.52 1.10 - 3.70 k/uL Absolute Ware # 0.80 0.10 - 1.20 k/uL Absolute [...] Range Expiration Date 09/27/2022,2359 Arm Band Number [id number] ABO/Rh A POSITIVE Antibody Screen NEGATIVE complications: [...] Your Medications These medications were sent to [facility] [address] [place], [place] [address] [facility] 18 - P [phone] F [phone] [place] [address] docusate 100 MG Caps ibuprofen 800 MG tablet Admit date: 09/24/2022 3:00 PM Discharge Date: 09/26/2022 Discharged to: Home in stable condition Plan: Follow up in 6 week(s) for post visit, blood pressure check, breast feeding check, and post depression check documented in this encounter [employer] Phone: 09-26-2022 History of Presen t illness [...] 09/25/22 1037 (!) 145/84 -- -- 93 09/25/22 1023 137/82 -- -- (!) 111 16 09/25/22 1007 136/86 -- -- 91 09/25/22 0952 128/78 -- -- 96 16 [...] rate: Baseline Heart Rate: 125 Accelerations: present Detention Variability: moderate Decelerations: absent Contraction frequency: 2 minutes Position: Cephalic Membranes: ROM clear fluid Cervix: Dilation: 6-7 cm Effacement: 80 Station: -1 Consistency: soft Position: mid ASSESSMENT & PLAN: Active labor. S/P AROM. Patient progressing continue current management Provider at bedside. Admission orders received from Dr Bejarano. Amnioswab negative. documented in this encounter [employer] [employer] Phone: 08-16-2022 History of Presen t illness Narrative Explained policies and procedure of an echocardiogram/Doppler study. Patient instructed on extended property assessment monitor indications and use. Diary sent with patient. 5-7 days documented in this encounter [facility] [employer] Phone: 08-02-2022 History of Presen t illness [...] provide urine sample. documented in this encounter [email or web address] Phone: 08-02-2022 Hospital Discharg e instructions Wendy Choudhary RN - 08/02/2022 6:20 PM EST OUTPATIENT DISCHARGE Dr Skye Russell [facility] [address] [facility] [address] [phone] ACTIVITY LIMITATIONS: ( X )Up and about [...] AND DELIVERY . documented in this encounter [email or web address] Phone: 01-25-2022 History of Presen t illness Narrative Explained Holter monitor and diary. documented in this encounter [email or web address] Phone: Evaluation note Diagnosis Women's annual routine gynecological examination documented in this encounter [employer] Phone: evaluation note* Diagnosis Heart palpitations Palpitations documented in this encounter [facility] [employer] Phone: evaluation note* Diagnosis Heart palpitations Palpitations documented in this encounter [facility] [employer] Phone: evaluation note* Diagnosis Encounter for supervision of normal , antepartum, unspecified Positive urine test documented in this encounter [email or web address] Phone: evaluation note* Diagnosis contractions- Primary Unspecified abnormality of labor, antepartum documented in this encounter [email or web address] Phone: evaluation note* Diagnosis Light headedness Dizziness and giddiness POTS (postural orthostatic tachycardia syndrome) Tachycardia, unspecified Abnormal tilt table test Other nonspecific abnormal result of function study of brain and central nervous system documented in this encounter [email or web address] Phone: evaluation note* Diagnosis Light headedness Dizziness and giddiness POTS (postural orthostatic tachycardia syndrome) Tachycardia, unspecified Abnormal tilt table test Other nonspecific abnormal result of function study of brain and central nervous system 29 weeks gestation of state, incidental Chest pain, unspecified type documented in this encounter [email or web address] Phone: evaluation note* Diagnosis Encounter for supervision of normal first in second trimester Supervision of normal first documented in this encounter [facility] [employer] Phone: evaluation note* Diagnosis 36 weeks gestation of state, incidental documented in this encounter [email or web address] Phone: evaluation note* Diagnosis Elevated blood pressure affecting , antepartum documented in this encounter [email or web address] Phone: evaluation note* Diagnosis Elevated blood pressure affecting , antepartum documented in this encounter [email or web address] Phone: evaluation note* Diagnosis (spontaneous vaginal delivery)- Primary Normal delivery Rupture of membranes with delay of delivery Term documented in this encounter [facility] [employer] Work Phone: Summary Purpose Family History No Family History Records Found Description Last Updated Maternal history of family history of is chemic heart disease 01/14/2020 Paternal history of family history of is chemic heart disease 01/14/2020 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s No Advanced Directives Records FoundDocuments on File Type Date Recorded Patient Clinical Trials Data Coordinator Expl anation ACP-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 ACP-Power of Etl Software Engineer Documents on File Type Date Recorded Patient Clinical Trials Data Coordinator Expl anation ACP-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 ACP-Power of Etl Software Engineer Latest Code Status on File Code Status [...] Nick Brown APRN - CNP [address] [id number] Referral ID Status Reason Start Date Expiration Date Visits Re quested Visits Authorized [id number] Closed 01/13/2022 01/13/2023 1 1 Specialty Diagnoses / Procedures Referred By Contac t Referred To Contact Cardiology Diagnoses Light headedness POTS (postural orthostatic tachycardia syndrome) Abnormal tilt table test Procedures Echo 2D w doppler w color complete Jade Soto MD [address] [place] [address] Referral ID Status Reason Start Date Expiration Date Visits Re quested Visits Authorized [id number] Closed 08/04/2022 08/10/2023 1 1 Specialty Diagnoses / Procedures Referred By Contac t Referred To Contact Diagnoses Light headedness POTS (postural orthostatic tachycardia syndrome) Abnormal tilt table test 29 weeks gestation of Chest pain, unspecified type Procedures Continuous cardiac monitoring, >2 up to 14 days Jade Soto MD [address] [place] [address] Referral ID Status Reason Start Date Expiration Date Visits Re quested Visits Authorized [id number] Closed 07/27/2022 07/27/2023 1 1 Assessments Findings Encounter Date Body mass index Telemedicine with Radha Saleem NP 01/14/2020 Exposure to a viral disease Telemedicine with Rachel Cuevas CNP 01/14/2020 Instructions Instructions not supported for this [...] and content) DATE CREATED AUTHOR 01/05/2018 [facility] DATE CREATED AUTHOR AUTHOR'S ORGANIZ ATION 09/28/2022 [facility] DATE CREATED AUTHOR AUTHOR'S ORGANIZ ATION 07/08/2023 [facility] DATE CREATED AUTHOR AUTHOR'S ORGANIZ ATION 10/12/2023 [facility] d[facility] Specialists EPIC Evaluations & Outcomes (unre cognized section and content) Includes: Evaluations & Outcomes for active GoalsNo Outcomes Recorded Includes: Evaluations & Outcomes for active GoalsNo Outcomes Recorded Care Teams (unrecognized sec tion and content) [employer] Systems Administrator Relationship Specialty Start Date End Date Nick Brown APRN - CNP [address] [place] [address] PCP - General Certified Nurse 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 01/13/22 [employer] Administrator Relationship Specialty Start Date End Date Nick Borwn APRN - CNP [address] [place] [address] PCP - General Certified Nurse 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 01/13/22 [employer] Systems Administrator Relationship Specialty Start Date End Date Stephanie Nick Stein CUSHION MAKER HAND - TRACK LAYER HEAD [address] [place] [facility] [place] [address] PCP - General Certified Nurse 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 01/13/22 [employer] Administrator Relationship Specialty Start Date End Date Stephanie Nick Stein CUSHION MAKER HAND - TRACK LAYER HEAD [address] [place] [facility] [place] [address] PCP - General Certified Nurse 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 01/13/22 [employer] Systems Administrator Relationship Specialty Start Date End Date Stephanie Nick Stein CUSHION MAKER HAND - TRACK LAYER HEAD [address] [place] [facility] [place] [address] PCP - General Certified Nurse 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 01/13/22 [employer] Systems Administrator Relationship Specialty Start Date End Date Stephanie Nick Stein CUSHION MAKER HAND - TRACK LAYER HEAD [address] [place] [facility] [place] [address] PCP - General Certified Nurse 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 01/13/22 [employer] Systems Administrator Relationship Specialty Start Date End Date Stephanie Nick Stein CUSHION MAKER HAND - TRACK LAYER HEAD [address] [place] [facility] [place] [address] PCP - General Certified Nurse 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 01/13/22 [employer] Systems Administrator Relationship Specialty Start Date End Date Stephanie Nick Stein CUSHION MAKER HAND - TRACK LAYER HEAD [address] [place] [facility] [place] [address] PCP - General Certified Nurse 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 01/13/22 [employer] Systems Administrator Relationship Specialty Start Date End Date StephanieNick beltran CUSHION MAKER HAND - TRACK LAYER HEAD [address] [place] [facility] [place] [address] PCP - General Certified Nurse 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 01/13/22 [employer] Systems Administrator Relationship Specialty Start Date End Date StephanieNick beltran CUSHION MAKER HAND - TRACK LAYER HEAD [address] [place] [facility] [place] [address] PCP - General Certified Nurse 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 01/13/22 Reason for Visit (unrecogniz ed section and content) Specialty Diagnoses / Procedures Referred By Nii garrido Referred To Contact Diagnoses Heart palpitations Procedures Holter Monitor 48 Hour Nick Brown APRN - LIONEL [address] [id number] Referral ID Status Reason Start Date Expiration Date Visits Re quested Visits Authorized [id number] Closed 01/13/2022 01/13/2023 1 1 Reason Comments Contractions Specialty Diagnoses / Procedures Referred By Nii t Referred To Contact Cardiology Diagnoses Light headedness POTS (postural orthostatic tachycardia syndrome) Abnormal tilt table test Procedures Echo 2D w doppler w color complete Jade Soto MD [address] [place], [place] [id number] Referral ID Status Reason Start Date Expiration Date Visits Re quested Visits Authorized [id number] Closed 08/04/2022 08/10/2023 1 1 Specialty Diagnoses / Procedures Referred By Nii garrido Referred To Contact Diagnoses Light headedness POTS (postural orthostatic tachycardia syndrome) Abnormal tilt table test 29 weeks gestation of Chest pain, unspecified type Procedures Continuous cardiac monitoring, >2 up to 14 days Jade Soto MD [address] [place] [id number] Referral ID Status Reason Start Date Expiration Date Visits Re quested Visits Authorized [id number] Closed 07/27/2022 07/27/2023 1 1 Reason Comments [...] - Provider: Marycruz Lloyd RN)2100 (Due) 0900 (Due)2100 (Due) ferrous sulfate (IRON 325) tablet 325 [...] Reason: IV Fluid Infusing) 0900 (Due)2100 (Due) 0900 (Due)2100 (Due) sodium chloride flush 0.9 % injection [...] mL/lumen, 1045 (Due)2100 (Due) 0900 (Due)2100 (Due) xmdygsa-iffxhc-ocimc pertussis (BOOSTRIX) injection 0.5 mL 0.5 mL, [...] David RN)1955 (Paused - Provider: Toya David RN)1957 (Rate/Dose Change - Provider: Toya David RN)2008 (Rate/Dose Change - Provider: Toya David RN)2010 (Rate/Dose Change - Provider: Toya David RN)2244 (Rate/Dose Verify - Provider: Toya David RN)233 [...] neyda-units/min (1-24 mL/hr), IntraVENous, CONTINUOUS, Starting on Mon09/25/22 at 0100, Until Discontinued, Begin infusion at 1 neyda-unit/min (1 neyda-unit per min = 1 mL per hour) and increase by 1 neyda-unit/min after 30 minutes. Then increase by 2 neyda-units/min as needed, no faster than every 30 minutes, until labor is achieved. Labor is defined as contractions every 2-3 minutes with cervical changes or Monarch units (MVU) greater than 200 in a [...] David RN)0506 (Rate/Dose Verify - Provider: Toya Daivd RN)0515 (Rate/Dose Change - Provider: Yarelis Rosario [...] Bruno, ARMANI) 0932 (Given - Provider: Kiran Gamino RN) [...] procedure is performed., Starting on 09/24/22 at 181, Labor and Delivery lansinoh lanolin ointment Topical, PRN, Dry Skin, nipple discomfort, Starting on 09/25/22 at 1023, methylergonovine (METHERGINE) injection 200 mcg 200 mcg, IntraMUSCular, PRN, Starting on 09/24/22 at 181, Until Discontinued, Bleeding, Prevention of post- hemorrhage, if not hypertensive., Labor and Delivery miSOPROStol (CYTOTEC) tablet 900 mcg 900 mcg, Rectal, PRN, Starting on 09/24/22 at 1810, Until Discontinued, Post Hemmorrhage, Post Delivery nalbuphine (NUBAIN) injection 10 mg 10 mg, IntraVENous, EVERY 2 HOURS PRN, Starting on 09/24/22 at 1810, Until Discontinued, Pain Moderate (4-6), Pain Severe (7-10), For pain, PRN for pain, Labor and Delivery naloxone 0.4 mg in 10 mL sodium chloride syringe IntraVENous, PRN, Opioid Reversal, PRN if respiratory rate is less than 6 breaths per minute and patient is difficult to arouse., Starting on 09/24/22 at 2059, Notify provider STAT. Mix 9 mL of [...] CONTINUOUS PRN, Pain, Starting on 09/24/22 at 1810, Nitrous oxide inhalation is to be a patient administered product. When documenting initiation of therapy on the MAR, choose 'Provided to Patient' for the drop [...] Lloyd RN)0931 (Due: Stopped - Provider: Marycruz Lloyd, [...] Post Delivery 1212 (Given - Provider: Marycruz Lloyd RN) Linked Groups Order Group 1: lactated ringers [...] BE BASED ON THE PRIMARY CLINICAL RECORDS. [facility]. provides no warranty or guarantee of the accuracy or completeness of information in this document.
[2023-11-03 09:01] LABS: Glucose 1 Hour 142 mg/dL (<130)
[2023-11-03 09:02] LABS: Basophils Absolute Auto 0.1 10^3/uL (0.0-0.1); Basophils Percent Auto 0.5 % (0.2-2.0); Eosinophils Absolute Auto 0.1 10^3/uL (0.0-0.7); Eosinophils Percent Auto 1.2 % (0.9-7.0); Hematocrit 31.4 % (36.0-48.0); Hemoglobin 9.9 g/dL (12.0-16.0); Lymphocytes Percent Auto 19.6 % (20.5-60.0); Mean Corpuscular HGB Conc 31.5 g/dL (29.9-35.2); Mean Corpuscular Hemoglobin 26.1 pg (26.7-34.0); Mean Corpuscular Volume 82.8 fL (81.0-99.0); Monocytes Absolute Auto 0.6 10^3/uL (0.3-0.8); Monocytes Percent Auto 5.5 % (1.7-12.0); Neutrophils Absolute Auto 7.3 10^3/uL (1.4-6.5); Neutrophils Percent Auto 72.2 % (43.0-75.0); Platelet Count 260 10^3/uL (150-450); Red Blood Count 3.79 10^6/uL (4.20-5.40); Red Cell Distribution Width 14.2 % (11.0-15.0)
== END 2023-11-03 07:34 | disposition home or self-care (01) ==
LOC: LAB 07:35
PROVIDERS: Visit Provider Physician Assistant
DX: Z13.1 Encounter for screening for diabetes mellitus (principal)
CPT/HCPCS: 36415; 82950; 85025

== ENCOUNTER 2023-11-23 12:00 | Outpatient (OUT) | payer OTHER, BC, SELFPAY | END 2023-11-23 23:59 | disposition home or self-care (01) | LOC: FBCO 11-24 14:55 | PROVIDERS: Visit Provider Obstetrics & Gynecology | DX: O24.419 Gestational diabetes mellitus in pregnancy, unspecified control (principal) | CPT/HCPCS: G0108 ==

== ENCOUNTER 2023-11-28 13:48 | Outpatient (OUT) | payer OTHER, BC, SELFPAY ==
--- NOTE | 2023-11-28 13:54 | US_ITS ---
[address] [address] Patient Name: FABIEN PERAZA MRN: [id number] date: 2000 Sex: F Assigned Patient Location: US Current Patient Location: US Accession/Order Number: [id number] Exam Date: 11/28/2023 13:55 Report Date: 11/28/2023 15:23 At the request of: MELO LAM Procedure: US OB growth EXAMINATION: US OB growth HISTORY: Size Inconsistent With Dates COMPARISON: Ultrasound OB anatomy 09/11/2023 FINDINGS: Heart Rate: 145.2 bpm Number: 1.0 Position: CEPHALIC Amniotic Fluid Volume: 10.8 cm Maximum Vertical Pocket: 3.5 cm BIOMETRY: BPD: 7.8 cm cm; 31 weeks 2 days; 37% HC: 29.3 cmcm; 32 weeks 2 days ; 40% AC: 28.0 cm cm; 32 weeks 0 days; 70% FL: 6.1 cm cm; 31 weeks 4 days; 44% EFW: 1852.8 grams; 58% FL/AC: 21.7 FL/BPD: 78.1 HC/AC: 1.0 GESTATIONAL AGE: Age by EDC: 31 weeks 2 days EARNEST by EDC: 01/28/2024 Age by US: 31 weeks 6 days EARNEST by US: 01/24/2024 US/US OB growth IMPRESSION: 1. Single live intrauterine with growth detailed above. Electronically authenticated by: JADE CASPER Date: 11/28/2023 15:23
== END 2023-11-28 13:49 | disposition home or self-care (01) ==
LOC: US 13:48
PROVIDERS: Visit Provider Obstetrics & Gynecology
DX: O26.849 Uterine size-date discrepancy, unspecified trimester (principal); Z3A.31 31 weeks gestation of pregnancy
CPT/HCPCS: 76816

== ENCOUNTER 2023-12-29 13:08 | Observation (INO) | payer OTHER, BC, SELFPAY ==
--- OUTSIDE RECORDS SUMMARY | 2023-12-29 13:19 | XMS_ITS | CCD ---
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 Phone ROJAS, WICHO S Unavailable Unavailable ROJAS, WICHO S Unavailable Unavailable ROJAS, WICHO S Unavailable Unavailable ROJAS, WICHO S Unavailable Unavailable ROJAS, WICHO S Unavailable Unavailable ROJAS, WICHO S Unavailable Unavailable Radha Cuevas Primary Care Provider [phone] [place], Cari Smith Primary Care Provider Unav ailable Stephanie SURG RN - INSPECTOR EYEGLASS FRAMES, Nick Sarita Primary Care Provid er Stephanie SURG RN - INSPECTOR EYEGLASS FRAMES, Nick L Primary Care Provid er Stephanie SURG RN - INSPECTOR EYEGLASS FRAMES, Nick L Primary Care Provid er STEPHANIE NICK Sarita Primary Care Unavailable BEJARANO, ZAK N Admitting Unavailable [facility] BE[facility]ANOA Yamile Attending Unavailable STEPHANIE, NICK Sarita Primary Care Unavailable PETE SOL Attending UnavailPETE Maloney Admitting Unavailabl e STEPHANIE, NICK Stein Primary Care Unavailable ROLANDO, JUSTEEN Referring Unavailable STEPHANIE, NICK L Primary Care Unavailable JADE SOTO Referring Unavailable STEPHANIE, NICK Sarita Primary Care Unavailable STEPHANIE, NICK Stein Referring Unavailable STEPHANIE, NICK L Primary Care Unavailable STEPHANIE, NICK L Referring Unavailable STEPHANIE, NICK L Primary Care Unavailable STEPHANIE, NICK L Referring Unavailable STEPHANIE, NICK L Primary Care Unavailable STEPHANIE, NICK L Referring Unavailable STEPHANIE, NICK L Primary Care Unavailable PETE SOL Referring Unavailabl e STEPHANIE, NICK Sarita Primary Care Unavailable JADE SOTO Referring Unavailable STEPHANIE, NICK L Primary Care Unavailable ROLANDO, JUSTEEN Referring Unavailable JACQUI RUSSELL Referring Unavailable STEPHANIE, NICK L Primary Care Unavailable STEPHANIE, NICK L Primary Care Unavailable ROLANDO, JUSTEEN Referring Unavailable ADITYA GALVAN Referring Unavailable STEPHANIE, NICK L Primary Care Unavailable REINALDO ARRIETA Attending Unavailable MELO LAM Attending Unavailable REINALDO ARRIETA Attending Unavailable MELO LAM Attending Unavailable MELO LAM Attending Unavailable MELO LAM Attending Unavailable REINALDO ARRIETA Attending Unavailable MELO LAM Attending Unavailable Medications Current Medications Medication Drug Class(es) Dates Sig (Normalized) Sig (Original) acetaminophen 500 mg oral tablet (3 sources) Start: 09-25-2022 acetaminophen (TYLENOL) tablet 1,000 mg Start: 09-24-2022 acetaminophen (TYLENOL) tablet 650 mg take 2 tablets by mo [facility] every six hours as needed acetaminophen (TYLENOL) [...] mouth in the morning doxylamine-pyridoxine 10-10 MG TBE Indications: Nausea and vomiting in Take 1 [...] Start: 09-14-2022 take 1 tablet by sharmaine th twice daily ferrous sulfate (IRON 325) 325 [...] Start: 06-01-2013 take 1 tablet by sharmaine th every six hours as needed for pain [...] (1 source) Start: 09-24-2022 witch mt-gl ycerin (RUTHIbeth) pad Completed/Discontinued Medications Medication Drug Class(es) Dates [...] Episodic Unclassified (1 source) Hip Pain / [id number]() Onset: 10-12-2017 Past or Other Problems Problem [...] Results Test Name Value Interpretation Reference Range [facility] Surgical Pathologyon 023 Surgical Pathology (NOTE) -- Diagnosis -- PLACENTA, DELIVERED: -THIRD TRIMESTER PLACENTA WITH THREE-VESSEL CORD WITH FOCAL MINIMAL ACUTE INFLAMMATION OF UMBILICAL VEIN. -UNREMARKABLE MEMBRANES. -PLACENTAL DISC WITH FOCAL FIBROSIS AND ORGANIZING FIBRIN AT MATERNAL SURFACE AND ADHERENT BLOOD CLOT TO MATERNAL SURFACE. Artem Jones M.D. Electronically Signed Out 09/27/2022 Clinical Information Pre-op Diagnosis: CAN x 1, [...] SURGICAL PATHOLOGY CONSULTATION Patient Name: FABIEN PERAZA [facility] Rec: [id number] Path Number: [id number] [facility] ANATOMIC PATHOLOGY [address] [place] [phone] [facility] Comment on above: Performed By: #### U CGP #### [employer] [address] [place] [address] [employer] Supervisor: Diego Bashir MD Type + Screenon 09-25-2022 Type + Screen Sample Expiration 09/27/2022,2359 Arm Band Number [id number] ABO/Rh(D) A POSITIVE Antibody Screen NEGATIVE [facility] Comment on above: Performed By: #### U CGP #### [employer] [address] [place] [address] [employer] Supervisor: Diego Bashir MD CBC with Auto Differentialon 09-24-2022 Absolute Eos # 0.08 [facility] Absolute Immature Granulocyte 0.11 [facility] Absolute Lymph # 2.52 [facility] Absolute [place] # 0.80 [facility] Basophils (Bld) [#/Vol] 0.05 10*3/uL [facility] Basophils/100 WBC (Bld) 1 % 0 - 2 % [facility] Eosinophils/100 WBC (Bld) 1 % 1 - 4 % [facility] Hematocrit (Bld) [Volume fraction] 31.9 % Low 36.3 - 47.1 % [facility] Hemoglobin (Bld) [Mass/Vol] 10.5 g/dL Low 11.9 - 15.1 g/dL [facility] Immature granulocytes/100 WBC (Bld) 1 % High 0 [facility] Interpretation and review of laboratory results Abnormal [facility] Lymphocytes/100 WBC (Bld) 25 % 24 - 43 % [facility] MCH (RBC) [Entitic mass] 25.1 pg Low 25.2 - 33.5 pg [facility] MCHC (RBC) [Mass/Vol] 32.9 g/dL 28.4 - 34.8 g/dL [facility] MCV (RBC) [Entitic vol] 76.3 fL Low 82.6 - 102.9 fL [facility] Monocytes/100 WBC (Bld) 8 % 3 - 12 % [facility] NRBC Automated 0.0 0.0 per 100 WBC [facility] Platelet distribution width (Bld) [Ratio] 14.7 % High 11.8 - 14.4 % [facility] Platelet mean volume (Bld) [Entitic vol] 8.7 fL 8.1 - 13.5 fL [facility] Platelets (Bld) [#/Vol] 298 10*3/uL [facility] RBC (Bld) [#/Vol] 4.18 10*6/uL 3.95 - 5.11 m/uL [facility] Segmented neutrophils/100 WBC (Bld) 64 % 36 - 65 % [facility] Segs Absolute 6.71 [facility] WBC (Bld) [#/Vol] 10.3 10*3/uL [facility] CBC with Diffon 09-24-2022 Abs. Basophil 0.05 k/uL Normal 0.00-0.20 [facility] Comment on above: Performed By: #### U CGP #### [facility] [employer] [facility] [place] [address] [employer] Supervisor: Diego Bashir MD Abs.Imm.Granulocyte 0.11 k/uL Normal 0.00-0.30 [facility] Comment on above: Performed By: #### U CGP #### [address] [address] [employer] Supervisor: Diego Bashir MD Abs.Neutrophil (Seg) 6.71 k/uL Normal 1.50-8.10 [facility] Comment on above: Performed By: #### U CGP #### [address] [address] [employer] Supervisor: Diego Bashir MD Basophils/100 WBC (Bld) 1 % Normal 0-2 [facility] Comment on above: Performed By: #### U CGP #### [place] [address] [employer] Supervisor: Diego Bashir MD Eosinophils (Bld) [#/Vol] 0.08 10*3/uL Normal 0.00-0.44 [facility] Comment on above: Performed By: #### U CGP #### [address] [address] [employer] Supervisor: Diego Bashir MD Eosinophils/100 WBC (Bld) 1 % Normal 1-4 [facility] Comment on above: Performed By: #### U CGP #### [address] [address] [employer] Supervisor: Diego Bashir MD Erythrocyte distribution width (RBC) [Ratio] 14.7 % High 11.8-14.4 [facility] Comment on above: Performed By: #### U CGP #### [address] [address] [employer] Supervisor: Diego Bashir MD Hematocrit (Bld) [Volume fraction] 31.9 % Low 36.3-47.1 [facility] Comment on above: Performed By: #### U CGP #### [address] [address] [employer] Supervisor: Diego Bashir MD Hemoglobin (Bld) [Mass/Vol] 10.5 g/dL Low 11.9-15.1 [facility] Comment on above: Performed By: #### U CGP #### [address] [address] [employer] Supervisor: Diego Bashir MD Immature granulocytes/100 WBC (Bld) 1 % High 0 [facility] Comment on above: Performed By: #### U CGP #### [address] [address] [employer] Supervisor: Diego Bashir MD Lymphocytes (Bld) [#/Vol] 2.52 10*3/uL Normal 1.10-3.70 [facility] Comment on above: Performed By: #### U CGP #### [address] [address] [employer] Supervisor: Diego Bashir MD Lymphocytes/100 WBC (Bld) 25 % Normal 24-43 [facility] Comment on above: Performed By: #### U CGP #### [address] [address] [employer] Supervisor: Diego Bashir MD MCH (RBC) [Entitic mass] 25.1 pg Low 25.2-33.5 [facility] Comment on above: Performed By: #### U CGP #### [address] [address] [employer] Supervisor: Diego Bashir MD MCHC (RBC) [Mass/Vol] 32.9 g/dL Normal 28.4-34.8 [facility] Comment on above: Performed By: #### U CGP #### [address] [address] [employer] Supervisor: Diego Bashir MD MCV (RBC) [Entitic vol] 76.3 fL Low 82.6-102.9 [facility] Comment on above: Performed By: #### U CGP #### [address] [address] [employer] Supervisor: Diego Bashir MD Monocytes (Bld) [#/Vol] 0.80 10*3/uL Normal 0.10-1.20 [facility] Comment on above: Performed By: #### U CGP #### [address] [address] [employer] Supervisor: Diego Bashir MD Monocytes/100 WBC (Bld) 8 % Normal 3-12 [facility] Comment on above: Performed By: #### U CGP #### [address] [address] [employer] Supervisor: Diego Bashir MD Neutrophil (Seg) 64 % Normal 36-65 [facility] Comment on above: Performed By: #### U CGP #### [address] [address] [employer] Supervisor: Diego Bashir MD NRBC Automated 0.0 per 100 WBC Normal 0.0 [facility] Comment on above: Performed By: #### U CGP #### [address] [address] [employer] Supervisor: Diego Bashir MD Platelet mean volume (Bld) [Entitic vol] 8.7 fL Normal 8.1-13.5 [facility] Comment on above: Performed By: #### U CGP #### [address] [address] [employer] Supervisor: Diego Bashir MD Platelets (Bld) [#/Vol] 298 10*3/uL Normal 138-453 [facility] Comment on above: Performed By: #### U CGP #### [address] [address] [employer] Supervisor: Diego Bashir MD RBC (Bld) [#/Vol] 4.18 10*6/uL Normal 3.95-5.11 [facility] Comment on above: Performed By: #### U CGP #### [address] [address] [employer] Supervisor: Diego Bashir MD WBC (Bld) [#/Vol] 10.3 10*3/uL Normal 3.5-11.3 [facility] Comment on above: Performed By: #### U CGP #### [address] [address] [employer] Supervisor: Diego Bashir MD Comp Metabolic Profon 2022 Albumin [Mass/Vol] 3.5 g/dL Normal 3.5-5.2 [facility] Comment on above: Performed By: #### U CGP #### [address] [address] [employer] Supervisor: Diego Bashir MD Albumin/Glob Ratio 1.1 Normal 1.0-2.5 [facility] Comment on above: Performed By: #### U CGP #### [address] [address] [employer] Supervisor: Diego Bashir MD Alkaline Phos 140 U/L High 35-104 [facility] Comment on above: Performed By: #### U CGP #### [address] [address] [employer] Supervisor: Diego Bashir MD ALT [Catalytic activity/Vol] 8 U/L Normal 5-33 [facility] Comment on above: Performed By: #### U CGP #### [address] [address] [employer] Supervisor: Diego Bashir MD Anion gap [Moles/Vol] 15 mmol/L Normal 9-17 [facility] Comment on above: Performed By: #### U CGP #### [address] [place] [address] [employer] Supervisor: Diego Bashir MD AST [Catalytic activity/Vol] 14 U/L Normal <32 [facility] Comment on above: Performed By: #### U CGP #### [address] [address] [employer] Supervisor: Diego Bashir MD Bilirubin [Mass/Vol] 0.3 mg/dL Normal 0.3-1.2 [facility] Comment on above: Performed By: #### U CGP #### [facility] [employer] [address] [place] [address] [employer] Supervisor: Diego Bashir MD BUN/CRE Ratio 7 Low 9-20 [facility] Comment on above: Performed By: #### U CGP #### [address] [address] [employer] Supervisor: Diego Bashir MD Calcium [Mass/Vol] 8.9 mg/dL Normal 8.6-10.4 [facility] Comment on above: Performed By: #### U CGP #### [address] [address] [employer] Supervisor: Diego Bashir MD Chloride [Moles/Vol] 103 mmol/L Normal 98-107 [facility] Comment on above: Performed By: #### U CGP #### [address] [address] [employer] Supervisor: Diego Bashir MD CO2 [Moles/Vol] 18 mmol/L Low 20-31 [facility] Comment on above: Performed By: #### U CGP #### [address] [address] [employer] Supervisor: Diego Bashir MD Creatinine [Mass/Vol] 0.42 mg/dL Low 0.50-0.90 [facility] Comment on above: Performed By: #### U CGP #### [address] [place] [address] [employer] Supervisor: Diego Bashir MD GFR/1.73 sq M.predicted among non-blacks MDRD (S/P/Bld) [Vol rate/Area] mL/min/{1.73_m2} Normal >60 [facility] Comment on above: Result Comment: These results [...] secretion. Performed By: #### U CGP #### [facility] [employer] [address] [place] [address] [employer] Supervisor: Diego Bashir MD Glucose [Mass/Vol] 76 mg/dL Normal 70-99 [facility] Comment on above: Performed By: #### U CGP #### [facility] [employer] [address] [place] [address] [employer] Supervisor: Diego Bashir MD Potassium [Moles/Vol] 3.6 mmol/L Low 3.7-5.3 [facility] Comment on above: Performed By: #### U CGP #### [facility] [employer] [address] [place] [address] [employer] Supervisor: Diego Bashir MD Protein [Mass/Vol] 6.6 g/dL Normal 6.4-8.3 [facility] Comment on above: Performed By: #### U CGP #### [facility] [employer] [address] [place] [address] [employer] Supervisor: Diego Bashir MD Sodium [Moles/Vol] 136 mmol/L Normal 135-144 [facility] Comment on above: Performed By: #### U CGP #### [facility] [employer] [address] [place] [address] [employer] Supervisor: Diego Bashir MD Urea nitrogen [Mass/Vol] 3 mg/dL Low 6-20 [facility] Comment on above: Performed By: #### U [facility] #### [facility] [address] [id number] [employer] Supervisor: Diego Bashir MD Comprehensive Metabolic Pane [facility] 09-24-2022 Albumin [Mass/Vol] 3.5 g/dL 3.5 - 5.2 g/dL [facility] Albumin/Globulin [Mass ratio] 1.1 {ratio} 1.0 - 2.5 [facility] ALP [Catalytic activity/Vol] 140 U/L High 35 - 104 U/L [facility] ALT [Catalytic activity/Vol] 8 U/L 5 - 33 U/L [facility] Anion gap [Moles/Vol] 15 mmol/L 9 - 17 mmol/L [facility] AST [Catalytic activity/Vol] 14 U/L NINF - 32 U/L [facility] Bilirubin [Mass/Vol] 0.3 mg/dL 0.3 - 1.2 mg/dL [facility] Calcium [Mass/Vol] 8.9 mg/dL 8.6 - 10.4 mg/dL [facility] Chloride [Moles/Vol] 103 mmol/L 98 - 107 mmol/L [facility] CO2 [Moles/Vol] 18 mmol/L Low 20 - 31 mmol/L [facility] Creatinine [Mass/Vol] 0.42 mg/dL Low 0.50 - 0.90 mg/dL [facility] GFR/1.73 sq M.predicted MDRD (S/P/Bld) [Vol rate/Area] - PINF [facility] Comment on above: These results are not [...] [Mass/Vol] 76 mg/dL 70 - 99 mg/dL [facility] Interpretation and review of laboratory results Abnormal [facility] Potassium [Moles/Vol] 3.6 mmol/L Low 3.7 - 5.3 mmol/L [facility] Protein [Mass/Vol] 6.6 g/dL 6.4 - 8.3 g/dL [facility] Sodium [Moles/Vol] 136 mmol/L 135 - 144 mmol/L [facility] Urea nitrogen [Mass/Vol] 3 mg/dL Low 6 - 20 mg/dL [facility] Urea nitrogen/Creatinine (Bld) [Mass ratio] 7 Low 9 - 20 [facility] DRUG SCREEN MULTI URINEon Amphetamine Screen, Ur Negative NEGATIVE [facility] Comment on above: (Positive cutoff 1000 ng/mL) Barbiturate Screen, Ur Negative NEGATIVE [facility] Comment on above: (Positive cutoff 200 ng/mL) Benzodiazepine Screen, Urine Negative NEGATIVE [facility] Comment on above: (Positive cutoff 200 ng/mL) Buprenorphine Urine Negative NEGATIVE [facility] Comment on above: (Positive cutoff 5 ng/ml) Cannabinoid Scrn, Ur Negative NEGATIVE [facility] Comment on above: (Positive cutoff 50 ng/mL) Cocaine Metabolite, Urine Negative NEGATIVE [facility] Comment on above: (Positive cutoff 300 ng/mL) Fentanyl, Ur Negative NEGATIVE [facility] Comment on above: (Positive cutoff 5 ng/ml) Methadone Screen, Urine Negative NEGATIVE [facility] Comment on above: (Positive cutoff 300 ng/mL) Opiates, Urine Negative NEGATIVE [facility] Comment on above: (Positive cutoff 300 ng/mL) Oxycodone Screen, Ur Negative NEGATIVE [facility] Comment on above: (Positive cutoff 100 ng/mL) Phencyclidine, Urine Negative NEGATIVE [facility] Comment on above: (Positive cutoff 25 ng/mL) [facility] Drug Scr, Abuse, Uron 2022 Amphetamine(s),Ur Negative Normal NEG [facility] Comment on above: Result Comment: (Positive cutoff 1000 ng/mL) Performed By: #### D AU #### [facility] [address] [place] [address] [place] [place], [place] [id number] [employer] Supervisor: Artem Jones MD Barbiturate(s),Ur Negative Normal NEG [facility] Comment on above: Result Comment: (Positive cutoff 200 ng/mL) Performed By: #### D AU #### [address] [place], [place] [id number] [employer] Supervisor: Artem Jones MD Benzodiazepine(s) Negative Normal NEG [facility] Comment on above: Result Comment: (Positive cutoff 200 ng/mL) Performed By: #### D AU #### [address] [place], [place] [phone] [employer] Supervisor: Artem Jones MD Buprenorphrine, Ur Negative Normal NEG [facility] Comment on above: Result Comment: (Positive cutoff 5 ng/ml) Performed By: #### D AU #### [address] [place], [place] [phone] [employer] Supervisor: Artem Jones MD Cannabinoid(s),Ur Negative Normal [facility] Comment on above: Result Comment: (Positive cutoff 50 ng/mL) Performed By: #### D AU #### [address] [place] [address] [employer] Supervisor: Artem Jones MD Cocaine Metabolite Negative Normal [facility] Comment on above: Result Comment: (Positive cutoff 300 ng/mL) Performed By: #### D AU #### [facility] [address] [place] [address] [place] [address] [employer] Supervisor: Artem Jones MD Fentanyl, Urine Negative Normal NEG [facility] Comment on above: Result Comment: (Positive cutoff 5 ng/ml) Performed By: #### D AU #### [address] [place], [place] [phone] [employer] Supervisor: Artem Jones MD Methadone Ql (U) Negative Normal NEG [facility] Comment on above: Result Comment: (Positive cutoff 300 ng/mL) Performed By: #### D AU #### [facility] [address] [place] [address] [place] [address] [employer] Supervisor: Artem Jones MD Opiate(s), Ur Negative Normal NEG [facility] Comment on above: Result Comment: (Positive cutoff 300 ng/mL) Performed By: #### D AU #### [facility] [address] [place] [address] [place] [address] [employer] Supervisor: Artem Jones MD Oxycodone, Urine Negative Normal NEG [facility] Comment on above: Result Comment: (Positive cutoff 100 ng/mL) Performed By: #### D AU #### [address] [place] [address] [employer] Supervisor: Artem Jones MD Phencyclidine, Ur Negative Normal NEG [facility] Comment on above: Result Comment: (Positive cutoff 25 ng/mL) Performed By: #### D AU #### [address] [place] [address] [employer] Supervisor: Artem Jones MD Lactate Dehydrogenaseon 09-14 LDH [Catalytic activity/Vol] 158 U/L Normal 135-214 [facility] Comment on above: Performed By: #### U CGP #### [facility] [address] [place] [address] [employer] Supervisor: Diego Bashir MD Cholesterol in LDL [Mass/Vol] 158 U/L 135 - 214 U/L [facility] Microscopic Urinalysison Bacteria, UA 2+ Abnormal None [facility] Epithelial Cells UA 0 TO 2 [facility] Interpretation and review of laboratory results Abnormal [facility] Mucus, UA TRACE Abnormal None [facility] RBC clumps Auto (Urine sed) [#/Area] 0 TO 2 [facility] WBC, UA 0 TO 2 [facility] No Panel Informationon 09-24 [facility] Protein / Creatinine Ratio, Urineon 09-24-2022 Creatinine, Ur 96.6 mg/dL 28.0 - 217.0 mg/dL [facility] Protein (U) [Mass/Vol] 17 mg/dL [facility] Comment on above: No normal range esta blished. Urine Total Protein Creatinine Ratio 0.18 0.00 - 0.20 [facility] Protein,Tot,Daisetta Uron 2022 Creatinine [Mass/Vol] 96.6 mg/dL Normal 28.0-217.0 [facility] Comment on above: Performed By: #### P RENAT #### [address] [place] [address] [employer] Supervisor: Diego Bashir MD [facility] [address] [place] [address] [address] [phone] [employer] Supervisor: Artem Jones MD Tot Prot. Conc. 17 mg/dL Normal [facility] Comment on above: Result Comment: No n ormal range established. Performed By: #### P RENAT #### [address] [address] [employer] Supervisor: Diego Bashir MD [facility] [address] [place] [address] [place] [address] [employer] Supervisor: Artem Jones MD TP/Cre Ratio 0.18 Normal 0.00-0.20 [facility] Comment on above: Performed By: #### P RENAT #### [address] [place] [address] [employer] Supervisor: Diego Bashir MD [facility] [address] [place] [address] [place] [address] [employer] Supervisor: Artem Jones MD TYPE AND SCREENon 09-24-2022 ABO/Rh Positive [facility] Arm Band Number [id number] [facility] Expiration Date 09/27/2022,2359 [facility] Urinalysison 09-24-2022 Bilirubin Urine Negative NEGATIVE [facility] Color, UA Yellow Yellow [facility] Glucose Auto test strip (U) [Mass/Vol] Negative NEGATIVE [facility] Interpretation and review of laboratory results Abnormal [facility] Ketones (U) [Mass/Vol] TRACE Abnormal NEGATIVE [facility] Leukocyte esterase Auto test strip Ql (U) Negative NEGATIVE [facility] Nitrite Auto test strip Ql (U) Negative NEGATIVE [facility] Protein (U) [Mass/Vol] 7.5 mg/dL 5.0 - 9.0 [facility] Protein (U) [Mass/Vol] Negative NEGATIVE [facility] Specific [place], UA 1.010 1.010 - 1.020 B ON [facility] Turbidity UA Clear Clear [facility] Urine Hgb Negative NEGATIVE [facility] Urobilinogen, Urine Normal Normal [facility] Urinalysis, Routineon 2022 Bilirubin, SemiQt,Ur Negative Normal NEG [facility] Comment on above: Performed By: #### U CGP #### [facility] [address] [place], [place] [phone] [employer] Supervisor: Diego Bashir MD Blood, Urine Negative Normal NEG [facility] Comment on above: Performed By: #### U CGP #### [facility] [address] [place] [address] [phone] [employer] Supervisor: Diego Bashir MD Clarity (U) Clear Normal CLEAR [facility] Comment on above: Performed By: #### U CGP #### [facility] [address] [place] [address] [phone] [employer] Supervisor: Diego Bashir MD Color (U) Yellow Normal YEL [facility] Comment on above: Performed By: #### U CGP #### [employer] [address] [place] [address] [phone] [employer] Supervisor: Diego Bashir MD Glucose Ql (U) Negative Normal NEG [facility] Comment on above: Performed By: #### U CGP #### [address] [address] [employer] Supervisor: Diego Bashir MD Ketones Ql (U) TRACE Abnormal NEG [facility] Comment on above: Performed By: #### U CGP #### [address] [address] [employer] Supervisor: Diego Bashir MD Leukocyte esterase Test strip Ql (U) Negative Normal NEG [facility] Comment on above: Performed By: #### U CGP #### [address] [address] [employer] Supervisor: Diego Bashir MD Nitrite,Ur Negative Normal NEG [facility] Comment on above: Performed By: #### U CGP #### [address] [address] [employer] Supervisor: Diego Bashir MD PH,Ur 7.5 Normal 5.0-9.0 [facility] Comment on above: Performed By: #### U CGP #### [address] [address] [employer] Supervisor: Diego Bashir MD Protein Ql (U) Negative Normal NEG [facility] Comment on above: Performed By: #### U CGP #### [address] [address] [employer] Supervisor: Diego Bashir MD Spec. [place],Ur 1.010 Normal 1.010-1.020 [facility] Comment on above: Performed By: #### U CGP #### [address] [address] [employer] Supervisor: Diego Bashir MD Urobilinogen,Ur Normal Normal NORM [facility] Comment on above: Performed By: #### U CGP #### [address] [address] [employer] Supervisor: Diego Bashir MD Urinalysis,Microon 3 Bacteria 2+ Abnormal NONE [facility] Comment on above: Performed By: #### U CGP #### [address] [address] [employer] Supervisor: Diego Bashir MD Epithelial cells LM Ql (Urine sed) 0 TO 2 Normal 0-25 [facility] Comment on above: Performed By: #### U CGP #### [address] [address] [employer] Supervisor: Diego Bashir MD Mucus Strands TRACE Abnormal NONE [facility] Comment on above: Performed By: #### U CGP #### [address] [address] [employer] Supervisor: Diego Bashir MD Urine RBC's 0 TO 2 Normal 0-2 [facility] Comment on above: Performed By: #### U CGP #### [address] [address] [employer] Supervisor: Diego Bashir MD Urine WBC's 0 TO 2 Normal 0-5 [facility] Comment on above: Performed By: #### U CGP #### [address] [address] [employer] Supervisor: Diego Bashir MD Rule Out Grp.B Strepon 09-18 Rule Out Grp.B Strep Specimen Descriptio n .VAGINA Culture NEGATIVE FOR GROUP B STREPTOCOCCI Report Status FINAL 09/18/2022 Normal [facility] Comment on above: Performed By: #### R OGBS #### [address] [address] [employer] Supervisor: Diego Bashir MD EVENT MONITORon 09-16-20[address] [id number] EVENT MONITOR PATIENT NAME: FABIEN PERAZA : 2000 MED REC NO: [id number] ROOM: ACCOUNT NO: [id number] ADMIT DATE: 08/16/2022 PROVIDER: Jade Soto MD [...] range. Clinical correlation required. JADE SOTO MD CHASITY/JENIFER_SRIDEVIIT Doc#: Unknown CC: ASHELY Padilla Normal [facility] CBCon 09-14-2022 Erythrocyte distribution width (RBC) [Ratio] 14.4 % Normal 11.8-14.4 [facility] Comment on above: Performed By: #### P RENAT #### [address] [place] [address] [employer] Supervisor: Diego Bashir MD [facility] [address] [place] [address] [place] [address] [employer] Supervisor: Artem Jones MD Hematocrit (Bld) [Volume fraction] 31.2 % Low 36.3-47.1 [facility] Comment on above: Performed By: #### P RENAT #### [facility] [address] [place] [address] [employer] Supervisor: Diego Bashir MD [facility] [address] [place] [address] [place] [address] [employer] Supervisor: Artem Jones MD Hemoglobin (Bld) [Mass/Vol] 9.8 g/dL Low 11.9-15.1 [facility] Comment on above: Performed By: #### P RENAT #### [address] [place] [address] [employer] Supervisor: Diego Bashir MD [address] [place] [address] [employer] Supervisor: Artem Jones MD MCH (RBC) [Entitic mass] 24.9 pg Low 25.2-33.5 [facility] Comment on above: Performed By: #### P RENAT #### [address] [address] [employer] Supervisor: Diego Bashir MD [address] [place] [address] [employer] Supervisor: Artem Jones MD MCHC (RBC) [Mass/Vol] 31.4 g/dL Normal 28.4-34.8 [facility] Comment on above: Performed By: #### P RENAT #### [address] [address] [employer] Supervisor: Diego Bashir MD [address] [place] [address] [employer] Supervisor: Artem Jones MD MCV (RBC) [Entitic vol] 79.2 fL Low 82.6-102.9 [facility] Comment on above: Performed By: #### P RENAT #### [address] [address] [employer] Supervisor: Diego Bashir MD [address] [place] [address] [employer] Supervisor: Artem Jones MD NRBC Automated 0.0 per 100 WBC Normal 0.0 [facility] Comment on above: Performed By: #### P RENAT #### [address] [address] [employer] Supervisor: Diego Bashir MD [address] [place] [address] [employer] Supervisor: Artem Jones MD Platelet mean volume (Bld) [Entitic vol] 8.3 fL Normal 8.1-13.5 [facility] Comment on above: Performed By: #### P RENAT #### [facility] [address] [place] [address] [employer] Supervisor: Diego Bashir MD [facility] [address] [place] [address] [place] [address] [employer] Supervisor: Artem Jones MD Platelets (Bld) [#/Vol] 267 10*3/uL Normal 138-453 [facility] Comment on above: Performed By: #### P RENAT #### [address] [place] [address] [employer] Supervisor: Diego Bashir MD [facility] [address] [place] [address] [address] [place] [phone] [employer] Supervisor: Artem Jones MD RBC (Bld) [#/Vol] 3.94 10*6/uL Low 3.95-5.11 [facility] Comment on above: Performed By: #### P RENAT #### [facility] [address] [place] [address] [employer] Supervisor: Diego Bashir MD [address] [place] [phone] [employer] Supervisor: Artem Jones MD WBC (Bld) [#/Vol] 10.7 10*3/uL Normal 3.5-11.3 [facility] Comment on above: Performed By: #### P RENAT #### [address] [address] [employer] Supervisor: Diego Bashir MD [address] [place] [phone] [employer] Supervisor: Artem Jones MD Hematocrit (Bld) [Volume fraction] 31.2 % Low 36.3 - 47.1 % [facility] Hemoglobin (Bld) [Mass/Vol] 9.8 g/dL Low 11.9 - 15.1 g/dL [facility] Interpretation and review of laboratory results Abnormal [facility] MCH (RBC) [Entitic mass] 24.9 pg Low 25.2 - 33.5 pg [facility] MCHC (RBC) [Mass/Vol] 31.4 g/dL 28.4 - 34.8 g/dL [facility] MCV (RBC) [Entitic vol] 79.2 fL Low 82.6 - 102.9 fL [facility] NRBC Automated 0.0 0.0 per 100 WBC [facility] Platelet distribution width (Bld) [Ratio] 14.4 % 11.8 - 14.4 % [facility] Platelet mean volume (Bld) [Entitic vol] 8.3 fL 8.1 - 13.5 fL [facility] Platelets (Bld) [#/Vol] 267 10*3/uL [facility] RBC (Bld) [#/Vol] 3.94 10*6/uL Low 3.95 - 5.11 m/uL [facility] WBC (Bld) [#/Vol] 10.7 10*3/uL [facility] Comp Metabolic Profon 2022 Albumin [Mass/Vol] 3.3 g/dL Low 3.5-5.2 [facility] Comment on above: Performed By: #### P RENAT #### [facility] [address] [place], [place] [phone] [employer] Supervisor: Diego Bashir MD [facility] [address] [place] [address] [place] [address] [employer] Supervisor: Artem Jones MD Albumin/Glob Ratio 1.0 Normal 1.0-2.5 [facility] Comment on above: Performed By: #### P RENAT #### [facility] [employer] [address] [place], [place] [phone] [employer] Supervisor: Diego Bashir MD [facility] [address] [place] [address] [place] [address] [employer] Supervisor: Artem Jones MD Alkaline Phos 124 U/L High 35-104 [facility] Comment on above: Performed By: #### P RENAT #### [facility] [address] [place] [address] [employer] Supervisor: Diego Bashir MD [facility] [address] [place] [address] [place] [address] [employer] Supervisor: Artem Jones MD ALT [Catalytic activity/Vol] 7 U/L Normal 5-33 [facility] Comment on above: Performed By: #### P RENAT #### [facility] [address] [place] [address] [employer] Supervisor: Diego Bashir MD [facility] [address] [place] [address] [place] [address] [employer] Supervisor: Artem Jones MD Anion gap [Moles/Vol] 11 mmol/L Normal 9-17 [facility] Comment on above: Performed By: #### P RENAT #### [facility] [address] [place] [address] [employer] Supervisor: Diego Bashir MD [facility] [address] [place] [address] Dr. [place], [place] [phone] [employer] Supervisor: Artem Jones MD AST [Catalytic activity/Vol] 12 U/L Normal <32 [facility] Comment on above: Performed By: #### P RENAT #### [facility] [address] [place] [address] [employer] Supervisor: Diego Bashir MD [facility] [address] [place] [address] [place] [address] [employer] Supervisor: Artem Jones MD Bilirubin [Mass/Vol] 0.2 mg/dL Low 0.3-1.2 [facility] Comment on above: Performed By: #### P RENAT #### [facility] [address] [place] [address] [employer] Supervisor: Diego Bashir MD [facility] [address] [place] [address] Dr. [place], [place] [phone] [employer] Supervisor: Artem Jones MD BUN/CRE Ratio 8 Low 9-20 [facility] Comment on above: Performed By: #### P RENAT #### [facility] [address] [place] [address] [employer] Supervisor: Diego Basihr MD [facility] [address] [place] [address] [place], [place] [phone] [employer] Supervisor: Artem Jones MD Calcium [Mass/Vol] 9.4 mg/dL Normal 8.6-10.4 [facility] Comment on above: Performed By: #### P RENAT #### [address] [place] [address] [employer] Supervisor: Diego Bashri MD [facility] [address] [place] [address] [place] [phone] [employer] Supervisor: Artem Jones MD Chloride [Moles/Vol] 105 mmol/L Normal 98-107 [facility] Comment on above: Performed By: #### P RENAT #### [facility] [address] [place] [address] [employer] Supervisor: Diego Bashir MD [facility] [address] [place] [address] Dr. [place], [place] [phone] [employer] Supervisor: Artem Jones MD CO2 [Moles/Vol] 22 mmol/L Normal 20-31 [facility] Comment on above: Performed By: #### P RENAT #### [facility] [address] [place] [address] [employer] Supervisor: Diego Bashir MD [facility] [address] [place] [address] [place], [place] [phone] [employer] Supervisor: Artem Jones MD Creatinine [Mass/Vol] 0.50 mg/dL Normal 0.50-0.90 [facility] Comment on above: Performed By: #### P RENAT #### [address] [place] [address] [employer] Supervisor: Diego Bashir MD [address] [place] [address] [employer] Supervisor: Artem Jones MD GFR/1.73 sq M.predicted among non-blacks MDRD (S/P/Bld) [Vol rate/Area] mL/min/{1.73_m2} Normal >60 [facility] Comment on above: Result Comment: These results [...] secretion. Performed By: #### P RENAT #### [address] [address] [employer] Supervisor: Diego Bashir MD [address] [place] [address] [employer] Supervisor: Artem Jones MD Glucose [Mass/Vol] 108 mg/dL High 70-99 [facility] Comment on above: Performed By: #### P RENAT #### [address] [address] [employer] Supervisor: Diego Bashir MD [address] [place] [address] [employer] Supervisor: Artem Jones MD Potassium [Moles/Vol] 3.8 mmol/L Normal 3.7-5.3 [facility] Comment on above: Performed By: #### P RENAT #### [address] [address] [employer] Supervisor: Diego Bashir MD [address] [place] [address] [employer] Supervisor: Artem Jones MD Protein [Mass/Vol] 6.5 g/dL Normal 6.4-8.3 [facility] Comment on above: Performed By: #### P RENAT #### [facility] [address] [place] [address] [employer] Supervisor: Diego Bashir MD [facility] [address] [place] [address] [employer] Supervisor: Artem Jones MD Sodium [Moles/Vol] 138 mmol/L Normal 135-144 [facility] Comment on above: Performed By: #### P RENAT #### [facility] [address] [place] [address] [employer] Supervisor: Diego Bashir MD [facility] [address] [place] [address] [address], [place] [phone] [employer] Supervisor: Artem Jones MD Urea nitrogen [Mass/Vol] 4 mg/dL Low 6-20 [facility] Comment on above: Performed By: #### P RENAT #### [facility] [address] [place] [address] [employer] Supervisor: Diego Bashir MD [facility] [address] [place] [address] Dr. [place], [place] [phone] [employer] Supervisor: Artem Jones MD Comprehensive Metabolic [facility] 09-14-2022 Albumin [Mass/Vol] 3.3 g/dL Low 3.5 - 5.2 g/dL [facility] Albumin/Globulin [Mass ratio] 1.0 {ratio} 1.0 - 2.5 [facility] ALP [Catalytic activity/Vol] 124 U/L High 35 - 104 U/L [facility] ALT [Catalytic activity/Vol] 7 U/L 5 - 33 U/L [facility] Anion gap [Moles/Vol] 11 mmol/L 9 - 17 mmol/L [facility] AST [Catalytic activity/Vol] 12 U/L NINF - 32 U/L [facility] Bilirubin [Mass/Vol] 0.2 mg/dL Low 0.3 - 1.2 mg/dL [facility] Calcium [Mass/Vol] 9.4 mg/dL 8.6 - 10.4 mg/dL [facility] Chloride [Moles/Vol] 105 mmol/L 98 - 107 mmol/L [facility] CO2 [Moles/Vol] 22 mmol/L 20 - 31 mmol/L [facility] Creatinine [Mass/Vol] 0.5 mg/dL 0.50 - 0.90 mg/dL [facility] GFR/1.73 sq M.predicted MDRD (S/P/Bld) [Vol rate/Area] - PINF [facility] Comment on above: These results are not [...] 108 mg/dL High 70 - 99 mg/dL [facility] Interpretation and review of laboratory results Abnormal [facility] Potassium [Moles/Vol] 3.8 mmol/L 3.7 - 5.3 mmol/L [facility] Protein [Mass/Vol] 6.5 g/dL 6.4 - 8.3 g/dL [facility] Sodium [Moles/Vol] 138 mmol/L 135 - 144 mmol/L [facility] Urea nitrogen [Mass/Vol] 4 mg/dL Low 6 - 20 mg/dL [facility] Urea nitrogen/Creatinine (Bld) [Mass ratio] 8 Low 9 - 20 [facility] Protein / Creatinine Ratio, Urineon 09-14-2022 Creatinine, Ur 110.6 mg/dL 28.0 - 217.0 mg/dL [facility] Protein (U) [Mass/Vol] 13 mg/dL [facility] Comment on above: No normal range esta blished. Urine Total Protein Creatinine Ratio 0.12 0.00 - 0.20 [facility] Protein,Tot,Daisetta Uron 2022 Creatinine [Mass/Vol] 110.6 mg/dL Normal 28.0-217.0 [facility] Comment on above: Performed By: #### U RTPRT #### [employer] [address] [place], [place] [id number] [employer] Supervisor: Diego Bashir MD Tot Prot. Conc. 13 mg/dL Normal [facility] Comment on above: Result Comment: No n ormal range established. Performed By: #### U RTPRT #### [employer] [address] [place], [place] [id number] [employer] Supervisor: Diego Bashir MD TP/Cre Ratio 0.12 Normal 0.00-0.20 [facility] Comment on above: Performed By: #### U RTPRT #### [employer] [facility] [place], [place] [id number] [employer] Supervisor: Diego Bashir MD US OB FOLLOW UP TRANSABDOMIN AL APPROACHon 09-12-2022 US OB FOLLOW UP TRANSABDOMINAL APPROACH Growth Ultrasound ? Viable 35 week, 5 day SIUP EFW= 65% AC>HC Vertex Anterior placenta ELEONORA= 12.8 cm Interpreted by: Arin Blake DO Signed by: Arin Blake DO 09/12/22 Final result Normal [facility] US OB FOLLOW UP TRANSABDOMIN AL APPROACHon 08-29-2022 US OB FOLLOW UP TRANSABDOMINAL APPROACH Growth Ultrasound ? Viable 31 week, 4 day SIUP EFW= 53% Vertex Anterior placenta ELEONORA= 11.5 cm Cx length= 4.1 cm ? Interpreted by: Arin Blake DO Signed by: Arin Blake DO 08/29/22 Final result Normal [facility] CBC with Auto Differentialon 08-25-2022 Absolute Eos # 0.11 [facility] Absolute Immature Granulocyte 0.10 [facility] Absolute Lymph # 2.10 [facility] Absolute [place] # 0.52 [facility] Basophils (Bld) [#/Vol] 0.04 10*3/uL [facility] Basophils/100 WBC (Bld) 0 % 0 - 2 % [facility] Eosinophils/100 WBC (Bld) 1 % 1 - 4 % [facility] Hematocrit (Bld) [Volume fraction] 33.1 % Low 36.3 - 47.1 % [facility] Hemoglobin (Bld) [Mass/Vol] 10.5 g/dL Low 11.9 - 15.1 g/dL [facility] Immature granulocytes/100 WBC (Bld) 1 % High 0 [facility] Interpretation and review of laboratory results Abnormal [facility] Lymphocytes/100 WBC (Bld) 23 % Low 24 - 43 % [facility] MCH (RBC) [Entitic mass] 25.9 pg 25.2 - 33.5 pg [facility] MCHC (RBC) [Mass/Vol] 31.7 g/dL 28.4 - 34.8 g/dL [facility] MCV (RBC) [Entitic vol] 81.7 fL Low 82.6 - 102.9 fL [facility] Monocytes/100 WBC (Bld) 6 % 3 - 12 % [facility] NRBC Automated 0.0 0.0 per 100 WBC [facility] Platelet distribution width (Bld) [Ratio] 14.4 % 11.8 - 14.4 % [facility] Platelet mean volume (Bld) [Entitic vol] 9.1 fL 8.1 - 13.5 fL [facility] Platelets (Bld) [#/Vol] 301 10*3/uL [facility] RBC (Bld) [#/Vol] 4.05 10*6/uL 3.95 - 5.11 m/uL [facility] RBC (Bld) [#/Vol] MICROCYTOSIS PRESENT [facility] Segmented neutrophils/100 WBC (Bld) 69 % High 36 - 65 % [facility] Segs Absolute 6.28 [facility] WBC (Bld) [#/Vol] 9.2 10*3/uL [facility] CBC with Diffon 08-25-2022 Abs. Basophil 0.04 k/uL Normal 0.00-0.20 [facility] Comment on above: Performed By: #### C DP, GLUSC #### [address] [address] [employer] Supervisor: Diego Bashir MD Abs.Imm.Granulocyte 0.10 k/uL Normal 0.00-0.30 [facility] Comment on above: Performed By: #### C DP, GLUSC #### [address] [address] [employer] Supervisor: Diego Bashir MD Abs.Neutrophil (Seg) 6.28 k/uL Normal 1.50-8.10 [facility] Comment on above: Performed By: #### C DP, GLUSC #### [address] [address] [employer] Supervisor: Diego Bashir MD Basophils/100 WBC (Bld) 0 % Normal 0-2 [facility] Comment on above: Performed By: #### C DP, GLUSC #### [address] [address] [employer] Supervisor: Diego Bashir MD Eosinophils (Bld) [#/Vol] 0.11 10*3/uL Normal 0.00-0.44 [facility] Comment on above: Performed By: #### C DP, GLUSC #### [address] [address] [employer] Supervisor: Diego Bashir MD Eosinophils/100 WBC (Bld) 1 % Normal 1-4 [facility] Comment on above: Performed By: #### C DP, GLUSC #### [address] [address] [employer] Supervisor: Diego Bashir MD Erythrocyte distribution width (RBC) [Ratio] 14.4 % Normal 11.8-14.4 [facility] Comment on above: Performed By: #### C DP, GLUSC #### [address] [address] [employer] Supervisor: Diego Bashir MD Hematocrit (Bld) [Volume fraction] 33.1 % Low 36.3-47.1 [facility] Comment on above: Performed By: #### C DP, GLUSC #### [place] [address] [employer] Supervisor: Diego Bashir MD Hemoglobin (Bld) [Mass/Vol] 10.5 g/dL Low 11.9-15.1 [facility] Comment on above: Performed By: #### C DP, GLUSC #### [place] [address] [employer] Supervisor: Diego Bashir MD Immature granulocytes/100 WBC (Bld) 1 % High 0 [facility] Comment on above: Performed By: #### C DP, GLUSC #### [address] [address] [employer] Supervisor: Diego Bashir MD Lymphocytes (Bld) [#/Vol] 2.10 10*3/uL Normal 1.10-3.70 [facility] Comment on above: Performed By: #### C DP, GLUSC #### [place] [address] [employer] Supervisor: Diego Bashir MD Lymphocytes/100 WBC (Bld) 23 % Low 24-43 [facility] Comment on above: Performed By: #### C DP, GLUSC #### [place] [address] [employer] Supervisor: Diego Bashir MD MCH (RBC) [Entitic mass] 25.9 pg Normal 25.2-33.5 [facility] Comment on above: Performed By: #### C DP, GLUSC #### [address] [address] [employer] Supervisor: Diego Bashir MD MCHC (RBC) [Mass/Vol] 31.7 g/dL Normal 28.4-34.8 [facility] Comment on above: Performed By: #### C DP, GLUSC #### [address] [address] [employer] Supervisor: Diego Bashir MD MCV (RBC) [Entitic vol] 81.7 fL Low 82.6-102.9 [facility] Comment on above: Performed By: #### C DP, GLUSC #### [address] [address] [employer] Supervisor: Diego Bashir MD Monocytes (Bld) [#/Vol] 0.52 10*3/uL Normal 0.10-1.20 [facility] Comment on above: Performed By: #### C DP, GLUSC #### [address] [address] [employer] Supervisor: Diego Bashir MD Monocytes/100 WBC (Bld) 6 % Normal 3-12 [facility] Comment on above: Performed By: #### C DP, GLUSC #### [address] [address] [employer] Supervisor: Diego Bashir MD Neutrophil (Seg) 69 % High 36-65 [facility] Comment on above: Performed By: #### C DP, GLUSC #### [address] [address] [employer] Supervisor: Diego Bashir MD NRBC Automated 0.0 per 100 WBC Normal 0.0 [facility] Comment on above: Performed By: #### C DP, GLUSC #### [address] [address] [employer] Supervisor: Diego Bashir MD Platelet mean volume (Bld) [Entitic vol] 9.1 fL Normal 8.1-13.5 [facility] Comment on above: Performed By: #### C DP, GLUSC #### [address] [address] [employer] Supervisor: Diego Bashir MD Platelets (Bld) [#/Vol] 301 10*3/uL Normal 138-453 [facility] Comment on above: Performed By: #### C DP, GLUSC #### [address] [address] [employer] Supervisor: Diego Bashir MD RBC (Bld) [#/Vol] 4.05 10*6/uL Normal 3.95-5.11 [facility] Comment on above: Performed By: #### C DP, GLUSC #### [address] [address] [employer] Supervisor: Diego Bashir MD RBC morphology finding Nom (Bld) MICROCYTOSIS PRESENT Normal [facility] Comment on above: Performed By: #### C DP, GLUSC #### [address] [address] [employer] Supervisor: Diego Bashir MD WBC (Bld) [#/Vol] 9.2 10*3/uL Normal 3.5-11.3 [facility] Comment on above: Performed By: #### C DP, GLUSC #### [address] [address] [employer] Supervisor: Diego Bashir MD Glucose [place] 50gon 2022 Glucose [Mass/Vol] 142 mg/dL High 70-135 [facility] Comment on above: Performed By: #### C DP, GLUSC #### [address] [address] [employer] Supervisor: Diego Bashir MD Glu Administered via Glucola Normal [facility] Comment on above: Performed By: #### C DP, GLUSC #### [facility] [employer] [address] [place] [address] [employer] Supervisor: Diego Bashir MD Glucose tolerance, 1 houron 08-25-2022 GLU ADMN Glucola [facility] Glucose tolerance screen 50g 142 mg/dL High 70 - 135 mg/dL [facility] Interpretation and review of laboratory results Abnormal [facility] Echo 2D w doppler w color co mpleteon 08-16-2022 [facility] Transthoracic Echocardiography Report (TTE) Patient Name KARMEN Date of Study 08/16/2022 FABIEN Ovalle Date of 2000 Gender Female Age 21 year(s) Race Room Number Height: 62 inch, 157.48 cm Corporate ID [id number] Weight: 197 pounds, 89.4 kg # Patient Acct [id number] BSA: 1.9 m^2 BMI: 36.03 # kg/m^2 MR # [id number] [employer] Project Manager Work,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 Procedure Date Date: 08/16/2022 Start: 08:31 AM Study Location: [facility] Indications:Lighthead edness. History / Tech. Comments: Dx: [...] Calculations: LVIDd:4.97 cm(3.7 - 5.6 cm) Diastolic Volume:95.18094 ml LVIDs:3.11 cm(2.2 - 4.0 cm) Systolic [...] E' velocity:0.13 m/s Lateral Wall E/E':5.26 MHPN T [facility] Jose A Chandler MD - 08/16/2022 [facility] Transthoracic Echocardiography Report (TTE) Patient Name KARMEN Date of Study 08/16/2022 FABIEN Ovalle Date of 2000 Gender Female Age 21 year(s) Race Room Number Height: 62 inch, 157.48 cm Corporate ID [id number] Weight: 197 pounds, 89.4 kg # Patient Acct [id number] BSA: 1.9 m^2 BMI: 36.03 # kg/m^2 MR # [id number] Remedial Project Manager Work,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 Procedure Date Date: 08/16/2022 Start: 08:31 AM Study Location: [facility] Indications:Ruben coles. History / Tech. Comments: Dx: giovana, (32 weeks) Hx: POTS Patient Status: Outpatient [...] Calculations: LVIDd:4.97 cm(3.7 - 5.6 cm) Diastolic Volume:95.27448 ml LVIDs:3.11 cm(2.2 - 4.0 cm) Systolic [...] Wall E' velocity:0.13 m/s Lateral Wall E/E':5.26 [employer] Phone: Echo 2D w doppler w color co mpleteOrdered By: Jose A Chandler on 08-16-2022 [employer] Phone: Urinalysison 08-02-2022 Bilirubin Urine Negative NEGATIVE [facility] Color, UA Yellow Yellow [facility] Glucose, Ur Negative NEGATIVE [facility] Interpretation and review of laboratory results Abnormal [facility] Ketones Ql (U) Negative NEGATIVE [facility] Leukocyte esterase Test strip Ql (U) Negative NEGATIVE [facility] Nitrite, Urine Negative NEGATIVE [facility] pH, UA 7.0 5.0 - 9.0 [facility] Protein, UA Negative NEGATIVE [facility] Specific [place], UA Low 1.010 - 1.020 B ON [facility] Turbidity UA Clear Clear [facility] Urine Hgb Negative NEGATIVE [facility] Urobilinogen, Urine Normal Normal [facility] Urinalysis, Routineon 2022 Bilirubin, SemiQt,Ur Negative Normal NEG [facility] Comment on above: Performed By: #### U A #### [facility] [address] [place] [address] [place] [address] [employer] Supervisor: Artem Jones MD Blood, Urine Negative Normal [facility] Comment on above: Performed By: #### U A #### [facility] [address] [place] [address] [place] [address] [employer] Supervisor: Artem Jones MD Clarity (U) Clear Normal CLEAR [facility] Comment on above: Performed By: #### U A #### [facility] [address] [place] [address] [employer] Supervisor: Artem Jones MD Color (U) Yellow Normal YEL [facility] Comment on above: Performed By: #### U A #### [facility] [address] [place] [address] [place] [address] [employer] Supervisor: Artem Jones MD Glucose Ql (U) Negative Normal NEG [facility] Comment on above: Performed By: #### U A #### [facility] [address] [place] [address] [place] [place], [place] [id number] [employer] Supervisor: Artem Jones MD Ketones Ql (U) Negative Normal NEG [facility] Comment on above: Performed By: #### U A #### [facility] [address] [place] [address] Dr[address] [place], [place] [id number] [employer] Supervisor: Artem Jones MD Leukocyte esterase Test strip Ql (U) Negative Normal NEG [facility] Comment on above: Performed By: #### U A #### [facility] [address] [place] [address] [place] [place], [place] [id number] [employer] Supervisor: Artem Jones MD Nitrite,Ur Negative Normal NEG [facility] Comment on above: Performed By: #### U A #### [facility] [address] [place] [address] Dr. [place], [facility] [employer] Supervisor: Artem Jones MD PH,Ur 7.0 Normal 5.0-9.0 [facility] Comment on above: Performed By: #### U A #### [facility] [address] [place] [address] Dr[address] [place], [place] [id number] [employer] Supervisor: Artem Jones MD Protein Ql (U) Negative Normal NEG [facility] Comment on above: Performed By: #### U A #### [facility] [address] [place] [address] Dr[address] [place], [place] [id number] [employer] Supervisor: Artem Jones MD Spec. [place],Ur <1.005 Low 1.010-1.020 [facility] Comment on above: Performed By: #### U A #### [facility] [address] [place] [address] [place] [address] [employer] Supervisor: Artem Jones MD Urobilinogen,Ur Normal Normal NORM [facility] Comment on above: Performed By: #### U A #### [facility] [address] [place] [address] Dr. [place] [id number] [employer] Supervisor: Artem Jones MD Cult,Urineon 02-23-2022 Cult,Urine Specimen Description .CLEAN CATCH URINE Culture KLEBSIELLA PNEUMONIAE >450029 CFU/ML Report Status FINAL 02/23/2022 SUSCEPTIBILITY Organism [...] <=20 SUSCEPTIBLE Piperacillin/Tazobact am <=4 SUSCEPTIBLE Susceptible [facility] Comment on above: Performed By: #### U RC #### [address] [address] [employer] Supervisor: Diego Bashir MD [facility] [address] [place], [place] [address]Fa[place] [id number] [employer] Supervisor: Artem Jones MD Chlamydia/GC DNA, Uron 02-22 Chlamydia Probe, Ur Negative Normal NEG [facility] Comment on above: Result Comment: CHLA MYDIA [...] target. Performed By: #### U CGP #### [facility] [address] [place] [address] [employer] Supervisor: Diego Bashir MD Gonorrhea Probe, Ur Negative Normal NEG [facility] Comment on above: Result Comment: NEIS SERIA [...] target. Performed By: #### U CGP #### [address] [address] [employer] Supervisor: Diego Bashir MD HIV Ag/Abon 02-22-2022 HIV Ag/Ab Non-Reactive Normal [facility] Comment on above: Result Comment: No l aboratory evidence of HIV infection. If acute HIV infection is suspected, consider testing for HIV-1 RNA. Performed By: #### H IVCMB, AHCV #### [address] [address] [employer] Supervisor: Diego Bashir MD Hep C Abon 02-22-2022 Hep C Ab Non-Reactive Normal [facility] Comment on above: Result Comment: The [...] Performed By: #### H IVCMB, AHCV #### [address] [address] [employer] Supervisor: Diego Bashir MD Profileon T.pallidum Ab Screen Non-Reactive Normal [facility] Comment on above: Result Comment: T. pallidum antibodies are not detected. There is no serological evidence of infection with T. pallidum (early primary syphilis cannot be excluded). Retest in 2-4 weeks if syphilis is clinically suspect. Performed By: #### P RENAT #### [address] [address] [employer] Supervisor: Diego Bashir MD [facility] [address] [place] [address] [place] [address] [employer] Supervisor: Artem Jones MD Hep B Surf Ag Non-Reactive Normal NR [facility] Comment on above: Performed By: #### P RENAT #### [facility] [employer] [address] [place], [place] [id number] [employer] Supervisor: Diego Bashir MD [facility] [address] [place] [address] [place] [address] [employer] Supervisor: Artem Jones MD Rubella Ab, IgG 67.8 IU/mL Normal [facility] Comment on above: Result Comment: REFERENCE RANGE: <5.0 NON-REACTIVE (non-immune) 5.0 TO 9.9 EQUIVOCAL >=10.0 REACTIVE (immune) Performed By: #### P RENAT #### [place] [address] [place], [place] [id number] [employer] Supervisor: Diego Bashir MD [facility] [address] [place] [address] [place] [address] [employer] Supervisor: Artem Jones MD Profile Ion 022 Absolute Eos # 0.10 [place] [facility] Absolute Immature Granulocyte 0.05 [facility] Absolute Lymph # 2.73 [facility] Absolute [place] # 0.69 [facility] Basophils (Bld) [#/Vol] 0.07 10*3/uL [facility] Basophils/100 WBC (Bld) 1 % 0 - 2 % [facility] Eosinophils/100 WBC (Bld) 1 % 1 - 4 % [facility] Hematocrit (Bld) [Volume fraction] 37.3 % 36.3 - 47.1 % [facility] Hemoglobin (Bld) [Mass/Vol] 12.2 g/dL 11.9 - 15.1 g/dL [facility] Hepatitis B Surface Ag Non-Reactive NONREACTIVE [facility] Immature granulocytes/100 WBC (Bld) 1 % High 0 [facility] Interpretation and review of laboratory results Abnormal [facility] Lymphocytes/100 WBC (Bld) 28 % 24 - 43 % [facility] MCH (RBC) [Entitic mass] 28.0 pg 25.2 - 33.5 pg [facility] MCHC (RBC) [Mass/Vol] 32.7 g/dL 28.4 - 34.8 g/dL [facility] MCV (RBC) [Entitic vol] 85.7 fL 82.6 - 102.9 fL [facility] Monocytes/100 WBC (Bld) 7 % 3 - 12 % [facility] NRBC Automated 0.0 0.0 per 100 WBC [facility] Platelet distribution width (Bld) [Ratio] 12.7 % 11.8 - 14.4 % [facility] Platelet mean volume (Bld) [Entitic vol] 9.3 fL 8.1 - 13.5 fL [facility] Platelets (Bld) [#/Vol] 300 10*3/uL [facility] RBC (Bld) [#/Vol] 4.35 10*6/uL 3.95 - 5.11 m/uL [facility] Rubella virus IgG Ql (S) 67.8 IU/mL [facility] Comment on above: REFERENCE RANGE: <5.0 NON-REACTIVE (non-immune) 5.0 TO 9.9 EQUIVOCAL >=10.0 REACTIVE (immune) Segmented neutrophils/100 WBC (Bld) 62 % 36 - 65 % [facility] Segs Absolute 6.09 [facility] T. pallidum, IgG Non-Reactive NONREACTIVE [facility] Comment on above: T. pallidum antibodies are not detected. There is no serological evidence of infection with T. pallidum (early primary syphilis cannot be excluded). Retest in 2-4 weeks if syphilis is clinically suspect. WBC (Bld) [#/Vol] 9.7 10*3/uL [facility] HIV Screenon 02-21-2022 HIV Ag/Ab Non-Reactive NONREACTIVE [facility] Comment on above: No laboratory eviden ce of HIV infection. If acute HIV infection is suspected, consider testing for HIV-1 RNA. [facility] Hepatitis C Antibodyon 02-21 Hepatitis C Ab Non-Reactive NONREACTIVE [facility] Comment on above: The hepatitis C [...] recommended by ordering HCV RNA by PCR. [facility] TYPE AND SCREENon 0 02-21-2022 ABO/Rh Positive [facility] Profileon Abs. Basophil 0.07 k/uL Normal 0.00-0.20 [facility] Comment on above: Performed By: #### P RENAT #### [address] [address] [employer] Supervisor: Diego Bashir MD [facility] [address] [place] [address] [place] [id number] [employer] Supervisor: Artem Jones MD Abs.Imm.Granulocyte 0.05 k/uL Normal 0.00-0.30 [facility] Comment on above: Performed By: #### P RENAT #### [address] [address] [employer] Supervisor: Diego Bashir MD [address] [place] [address] [employer] Supervisor: Artem Jones MD Abs.Neutrophil (Seg) 6.09 k/uL Normal 1.50-8.10 [facility] Comment on above: Performed By: #### P RENAT #### [address] [address] [employer] Supervisor: Diego Bashri MD [facility] [address] [place] [address] [place] [address] [employer] Supervisor: Artem Jones MD Basophils/100 WBC (Bld) 1 % Normal 0-2 [facility] Comment on above: Performed By: #### P RENAT #### [address] [address] [employer] Supervisor: Diego Bashir MD [facility] [address] [place] [address] Dr. [place] [phone] [employer] Supervisor: Artem Jones MD Eosinophils (Bld) [#/Vol] 0.10 10*3/uL Normal 0.00-0.44 [facility] Comment on above: Performed By: #### P RENAT #### [address] [address] [employer] Supervisor: Diego Bashir MD [address] [place] [phone] [employer] Supervisor: Artem Jones MD Eosinophils/100 WBC (Bld) 1 % Normal 1-4 [facility] Comment on above: Performed By: #### P RENAT #### [address] [address] [employer] Supervisor: Diego Bashir MD [address] [place] [address] [employer] Supervisor: Artem Jones MD Erythrocyte distribution width (RBC) [Ratio] 12.7 % Normal 11.8-14.4 [facility] Comment on above: Performed By: #### P RENAT #### [address] [address] [employer] Supervisor: Diego Bashir MD [address] [place] [address] [employer] Supervisor: Artem Jones MD Hematocrit (Bld) [Volume fraction] 37.3 % Normal 36.3-47.1 [facility] Comment on above: Performed By: #### P RENAT #### [address] [address] [employer] Supervisor: Diego Bashir MD [address] [place] [phone] [employer] Supervisor: Artem Jones MD Hemoglobin (Bld) [Mass/Vol] 12.2 g/dL Normal 11.9-15.1 [facility] Comment on above: Performed By: #### P RENAT #### [place] [address] [place] [address] [employer] Supervisor: Diego Bashir MD [facility] [address] [place] [address] Dr. [place] [phone] [employer] Supervisor: Artem Jones MD Immature granulocytes/100 WBC (Bld) 1 % High 0 [facility] Comment on above: Performed By: #### P RENAT #### [address] [address] [employer] Supervisor: Diego Bashir MD [address] [place] [phone] [employer] Supervisor: Artem Jones MD Lymphocytes (Bld) [#/Vol] 2.73 10*3/uL Normal 1.10-3.70 [facility] Comment on above: Performed By: #### P RENAT #### [address] [address] [employer] Supervisor: Diego Bashir MD [address] [place] [phone] [employer] Supervisor: Artem Jones MD Lymphocytes/100 WBC (Bld) 28 % Normal 24-43 [facility] Comment on above: Performed By: #### P RENAT #### [address] [address] [employer] Supervisor: Diego Bashir MD [facility] [address] [place] [address] Dr. [place] [phone] [employer] Supervisor: Artem Jones MD MCH (RBC) [Entitic mass] 28.0 pg Normal 25.2-33.5 [facility] Comment on above: Performed By: #### P RENAT #### [address] [address] [employer] Supervisor: Diego Bashir MD [address] [place], [place] [phone] [employer] Supervisor: Artem Jones MD MCHC (RBC) [Mass/Vol] 32.7 g/dL Normal 28.4-34.8 [facility] Comment on above: Performed By: #### P RENAT #### [address] [address] [employer] Supervisor: Diego Bashir MD [address] [place] [phone] [employer] Supervisor: Artem Jones MD MCV (RBC) [Entitic vol] 85.7 fL Normal 82.6-102.9 [facility] Comment on above: Performed By: #### P RENAT #### [address] [address] [employer] Supervisor: Diego Bashir MD [address] [place] [phone] [employer] Supervisor: Artem Jones MD Monocytes (Bld) [#/Vol] 0.69 10*3/uL Normal 0.10-1.20 [facility] Comment on above: Performed By: #### P RENAT #### [address] [address] [employer] Supervisor: Diego Bashir MD [address] [place] [address] [employer] Supervisor: Artem Jones MD Monocytes/100 WBC (Bld) 7 % Normal 3-12 [facility] Comment on above: Performed By: #### P RENAT #### [address] [address] [employer] Supervisor: Diego Bashir MD [address] [place] [phone] [employer] Supervisor: Artem Jones MD Neutrophil (Seg) 62 % Normal 36-65 [facility] Comment on above: Performed By: #### P RENAT #### [address] [address] [employer] Supervisor: Diego Bsahir MD [facility] [address] [place] [address] [place] [address] [employer] Supervisor: Artem Jones MD NRBC Automated 0.0 per 100 WBC Normal 0.0 [facility] Comment on above: Performed By: #### P RENAT #### [address] [address] [employer] Supervisor: Diego Bashir MD [facility] [address] [place] [address] [place] [address] [employer] Supervisor: Artem Jones MD Platelet mean volume (Bld) [Entitic vol] 9.3 fL Normal 8.1-13.5 [facility] Comment on above: Performed By: #### P RENAT #### [address] [address] [employer] Supervisor: Diego Bashir MD [address] [place] [address] [employer] Supervisor: Artem Jones MD Platelets (Bld) [#/Vol] 300 10*3/uL Normal 138-453 [facility] Comment on above: Performed By: #### P RENAT #### [address] [address] [employer] Supervisor: Diego Bashir MD [facility] [address] [place] [address] [place] [address] [employer] Supervisor: Artem Jones MD RBC (Bld) [#/Vol] 4.35 10*6/uL Normal 3.95-5.11 [facility] Comment on above: Performed By: #### P RENAT #### [address] [address] [employer] Supervisor: Diego Bashir MD [facility] [address] [place] [address] Dr. [place] [phone] [employer] Supervisor: Artem Jones MD WBC (Bld) [#/Vol] 9.7 10*3/uL Normal 3.5-11.3 [facility] Comment on above: Performed By: #### P RENAT #### [address] [address] [employer] Supervisor: Diego Bashir MD [facility] [address] [place] [phone] [employer] Supervisor: Artme Jones MD Type + Scrnon 02-21 Type + Scrn Negative Normal [facility] Comment on above: Performed By: #### P RTYS #### [facility] [address] [place], [place] [phone] [employer] Supervisor: Artem Jones MD Toxicology Scree, Urineon Amphetamine(s),Ur Negative Normal NEG [facility] Comment on above: Performed By: #### U CGP #### [address] [address] [employer] Supervisor: Diego Bashir MD Barbiturate(s),Ur Negative Normal NEG [facility] Comment on above: Performed By: #### U CGP #### [address] [address] [employer] Supervisor: Diego Bashir MD Benzodiazepine(s) Negative Normal NEG [facility] Comment on above: Performed By: #### U CGP #### [address] [address] [employer] Supervisor: Diego Bashir MD Buprenorphrine, Ur Negative Normal NEG [facility] Comment on above: Performed By: #### U CGP #### [address] [address] [employer] Supervisor: Diego Bashir MD Cannabinoid(s),Ur Negative Normal NEG [facility] Comment on above: Performed By: #### U CGP #### [facility] [address] [place] [address] [employer] Supervisor: Diego Bashir MD Cocaine Metabolite Negative Normal [facility] [facility] Comment on above: Performed By: #### U CGP #### [facility] [address] [place] [id number] [employer] Supervisor: Diego Bashir MD Methadone Negative Normal NEG [facility] Comment on above: Performed By: #### U CGP #### [address] [address] [employer] Supervisor: Diego Bashir MD Methamphetamine, Ur Negative Normal NEG [facility] Comment on above: Performed By: #### U CGP #### [address] [address] [employer] Supervisor: Diego Bashir MD Opiate(s), Ur Negative Normal NEG [facility] Comment on above: Performed By: #### U CGP #### [address] [address] [employer] Supervisor: Diego Bashir MD Oxycodone, Urine Negative Normal NEG [facility] Comment on above: Performed By: #### U CGP #### [address] [address] [employer] Supervisor: Diego Bashir MD Phencyclidine, Ur Negative Normal [facility] Comment on above: Performed By: #### U CGP #### [address] [place] [address] [employer] Supervisor: Diego Bashir MD Propoxyphene,Urine Negative Normal NEG [facility] Comment on above: Performed By: #### U CGP #### [address] [address] [employer] Supervisor: Diego Bashir MD Tricyclic Antidepressants Negative Normal NEG [facility] Comment on above: Result Comment: Drug screen results are to be used for medical purposes only. All positive results are unconfirmed. Testing for employment or legal uses should be sent to a reference laboratory for confirmation. Performed By: #### U [facility] #### [facility] [address] [place] [address] [employer] Supervisor: Diego Bashir MD Urine Drug Screen, Chad coelloeeugenie 02-21-2022 Amphetamine Screen, Ur Negative NEGATIVE [facility] Barbiturate Screen, Ur Negative NEGATIVE [facility] Benzodiazepine Screen, Urine Negative NEGATIVE [facility] Buprenorphine Urine Negative NEGATIVE [facility] Cannabinoid Scrn, Ur Negative NEGATIVE [facility] Cocaine Metabolite, Urine Negative NEGATIVE [facility] Methadone Screen, Urine Negative NEGATIVE [facility] Methamphetamine, Urine Negative NEGATIVE [facility] Opiates, Urine Negative NEGATIVE [facility] Oxycodone Screen, Ur Negative NEGATIVE [facility] Phencyclidine, Urine Negative NEGATIVE [facility] Propoxyphene, Urine Negative NEGATIVE [facility] Tricyclic Antidepressants, Urine Negative NEGATIVE [facility] Comment on above: Drug screen results are to be used for medical purposes only. All positive results are unconfirmed. Testing for employment or legal uses should be sent to a reference laboratory for confirmation. [facility] TILT TABLE TESTon 01-26-2022 TILT TABLE TEST [address] [id number] TILT TABLE TEST PATIENT NAME: FABIEN PERAZA : 2000 MED REC NO: [id number] ROOM: ACCOUNT NO: [id number] ADMIT DATE: 01/25/2022 PROVIDER: Jade Soto MD Cardiovascular Diagnostics Department DATE OF PROCEDURE: 01/25/2022 ORDERING PROVIDER: Nick Quiñones CNP PRIMARY CARE PROVIDER: Nick Quiñones CNP INTERPRETING PHYSICIAN: Jade Soto MD Diagnosis: [...] up with their primary care physician and/or host/hostess restaurant as previously scheduled. STUDY CONCLUSIONS: Abnormal head [...] SOTO MD CHASITY/DARCY_JEMMA Doc#: Unknown CC: Nick Quiñones, SURG RN-[facility] Basic Metabolic Panelon 06-3 Anion gap [Moles/Vol] 11 mmol/L 9 - 17 mmol/L [facility] Calcium [Mass/Vol] 9.6 mg/dL 8.6 - 10.4 mg/dL [facility] Chloride [Moles/Vol] 104 mmol/L 98 - 107 mmol/L [facility] CO2 [Moles/Vol] 24 mmol/L 20 - 31 mmol/L [facility] Creatinine [Mass/Vol] 0.74 mg/dL 0.50 - 0.90 mg/dL [facility] GFR >60 >60 mL/min [facility] GFR Non- >60 >60 mL/min [facility] Glucose [Mass/Vol] 91 mg/dL 70 - 99 mg/dL [facility] Potassium [Moles/Vol] 4.0 mmol/L 3.7 - 5.3 mmol/L [facility] Sodium [Moles/Vol] 139 mmol/L 135 - 144 mmol/L [facility] Urea nitrogen (BldV) [Mass/Vol] 14 mg/dL 6 - 20 mg/dL [facility] Urea nitrogen/Creatinine (Bld) [Mass ratio] 19 [facility] Basic Metabolic Profon 01-13 (cont.) Normal [facility] Comment on above: Result Comment: Aver age GFR for 20-29 years old: 116 mL/min/1.73sq m Chronic Kidney Disease: <60 mL/min/1.73sq m Kidney failure: <15 mL/min/1.73sq m eGFR calculated using average adult body mass. Additional eGFR calculator available at: http://www.G[employer]/multiple_crcl_2011.htm Performed By: #### B RIC, CBC #### [facility] [address] [place] [address] [employer] Supervisor: Artem Jones MD Anion gap [Moles/Vol] 11 mmol/L Normal - [facility] Comment on above: Performed By: #### B MP, CBC #### [facility] [address] [place] [address] [employer] Supervisor: Artem Jones MD BUN/CRE Ratio 19 Normal - [facility] Comment on above: Performed By: #### B MP, CBC #### [facility] [address] [place], [place] [id number] [employer] Supervisor: Artem Jones MD Calcium [Mass/Vol] 9.6 mg/dL Normal 8.6-10.4 [facility] Comment on above: Performed By: #### B MP, CBC #### [facility] [address] [place], [place] [id number] [employer] Supervisor: Artem Jones MD Chloride [Moles/Vol] 104 mmol/L Normal 98-107 [facility] Comment on above: Performed By: #### B MP, CBC #### [facility] [address] [place], [place] [id number] [employer] Supervisor: Artem Jones MD CO2 [Moles/Vol] 24 mmol/L Normal 20-31 [facility] Comment on above: Performed By: #### B MP, CBC #### [facility] [address] [place], [place] [phone] [employer] Supervisor: Artem Jones MD Creatinine [Mass/Vol] 0.74 mg/dL Normal 0.50-0.90 [facility] Comment on above: Performed By: #### B MP, CBC #### [facility] [address] [place], [place] [phone] [employer] Supervisor: Artem Jones MD GFR, Amer >60 Normal >60 [facility] Comment on above: Performed By: #### B MP, CBC #### [facility] [address] [place], [place] [phone] [employer] Supervisor: Artem Jones MD GFR,non Amer >60 Normal >60 [facility] Comment on above: Performed By: #### B MP, CBC #### [facility] [address] [place], [place] [phone] [employer] Supervisor: Artem Jones MD Glucose [Mass/Vol] 91 mg/dL Normal 70-99 [facility] Comment on above: Performed By: #### B MP, CBC #### [facility] [address] [place], [place] [id number] [employer] Supervisor: Artem Jones MD Potassium [Moles/Vol] 4.0 mmol/L Normal 3.7-5.3 [facility] Comment on above: Performed By: #### B MP, CBC #### [facility] [address] [place], [place] [phone] [employer] Supervisor: Artem Jones MD Sodium [Moles/Vol] 139 mmol/L Normal 135-144 [facility] Comment on above: Performed By: #### B RIC, CBC #### [address] [place], [place] [phone] [employer] Supervisor: Artem Jones MD Staging: Normal [facility] Comment on above: Result Comment: Stag e 1: Some kidney damage normal GFR Stage 2: Mild kidney damage GFR 60-89 Stage 3: Moderate kidney damage GFR 30-59 Stage 4: Severe kidney damage GFR 15-29 Stage 5: Severe kidney damage GFR <15 ESRD - chronic treatment by dialysis or transplant Performed By: #### B MP, CBC #### [address] [place], [place] [phone] [employer] Supervisor: Artem Jones MD Urea nitrogen [Mass/Vol] 14 mg/dL Normal 6-20 [facility] Comment on above: Performed By: #### B MP, CBC #### [facility] [address] [place], [place] [phone] [employer] Supervisor: Artem Jones MD CBCon 01-13-2022 Erythrocyte distribution width (RBC) [Ratio] 12.4 % Normal 11.8-14.4 [facility] Comment on above: Performed By: #### B RIC, CBC #### [facility] [address] [place] [address] [address] [place] [id number] [employer] Supervisor: Artem Jones MD Hematocrit (Bld) [Volume fraction] 39.7 % Normal 36.3-47.1 [facility] Comment on above: Performed By: #### B MP, CBC #### [address] [place] [address] [employer] Supervisor: Artem Jones MD Hemoglobin (Bld) [Mass/Vol] 13.0 g/dL Normal 11.9-15.1 [facility] Comment on above: Performed By: #### B MP, CBC #### [address] [place] [address] [employer] Supervisor: Artem Jones MD MCH (RBC) [Entitic mass] 27.7 pg Normal 25.2-33.5 [facility] Comment on above: Performed By: #### B MP, CBC #### [address] [place] [address] [employer] Supervisor: Artem Jones MD MCHC (RBC) [Mass/Vol] 32.7 g/dL Normal 28.4-34.8 [facility] Comment on above: Performed By: #### B MP, CBC #### [address] [place] [address] [employer] Supervisor: Artem Jones MD MCV (RBC) [Entitic vol] 84.6 fL Normal 82.6-102.9 [facility] Comment on above: Performed By: #### B MP, CBC #### [address] [place] [address] [employer] Supervisor: Artem Jones MD NRBC Automated 0.0 per 100 WBC Normal 0.0 [facility] Comment on above: Performed By: #### B MP, CBC #### [address] [place] [address] [employer] Supervisor: Artem Jones MD Platelet mean volume (Bld) [Entitic vol] 9.1 fL Normal 8.1-13.5 [facility] Comment on above: Performed By: #### B MP, CBC #### [facility] [address] [place] [address] [employer] Supervisor: Artem Jones MD Platelets (Bld) [#/Vol] 275 10*3/uL Normal 138-453 [facility] Comment on above: Performed By: #### B MP, CBC #### [facility] [address] [place] [address] [employer] Supervisor: Artem Jones MD RBC (Bld) [#/Vol] 4.69 10*6/uL Normal 3.95-5.11 [facility] Comment on above: Performed By: #### B MP, CBC #### [facility] [address] [place] [address] [employer] Supervisor: Artem Jones MD WBC (Bld) [#/Vol] 8.2 10*3/uL Normal 3.5-11.3 [facility] Comment on above: Performed By: #### B RIC, CBC #### [facility] [address] [place] [address] [employer] Supervisor: Artem Jones MD Hematocrit (Bld) [Volume fraction] 39.7 % 36.3 - 47.1 % [facility] Hemoglobin (Bld) [Mass/Vol] 13.0 g/dL 11.9 - 15.1 g/dL [facility] MCH (RBC) [Entitic mass] 27.7 pg 25.2 - 33.5 pg [facility] MCHC (RBC) [Mass/Vol] 32.7 g/dL 28.4 - 34.8 g/dL [facility] MCV (RBC) [Entitic vol] 84.6 fL 82.6 - 102.9 fL [facility] NRBC Automated 0.0 0.0 per 100 WBC [facility] Platelet distribution width (Bld) [Ratio] 12.4 % 11.8 - 14.4 % [facility] Platelet mean volume (Bld) [Entitic vol] 9.1 fL 8.1 - 13.5 fL [facility] Platelets (Bld) [#/Vol] 275 10*3/uL [facility] RBC (Bld) [#/Vol] 4.69 10*6/uL 3.95 - 5.11 m/uL [facility] WBC (Bld) [#/Vol] 8.2 10*3/uL [facility] Laboratory - Chemistry and C hemistry - challengeon 01-13-2022 GFR/1.73 sq M.predicted MDRD (S/P/Bld) [Vol rate/Area] [facility] Comment on above: Average GFR for 20-2 9 years old: 116 mL/min/1.73sq m Chronic Kidney Disease: <60 mL/min/1.73sq m Kidney failure: <15 mL/min/1.73sq m eGFR calculated using average adult body mass. Additional eGFR calculator available at: http://www.Tiger[employer]/multiple_crcl_2012.htm Stage 1: Some kidney damage normal GFR Stage 2: Mild kidney damage GFR 60-89 Stage 3: Moderate kidney damage GFR 30-59 Stage 4: Severe kidney damage GFR 15-29 Stage 5: Severe kidney damage GFR <15 ESRD - chronic treatment by dialysis or transplant PROGRESSon 10-12-2017 [facility] NOTES Normal [facility] PROGRESSon 09-21-2017 [facility] NOTES Normal [facility] Vital Signs Date Time Vital Sign Value Performing Clinician Heathi lity 09-26-2022 08:16-0400 Body temperature 98.1 [degF] Zak Bejarano MD Work Phone: [facility] 09-26-2022 08:16-0400 Diastolic blood pressure 80 mm[Hg] Zak Bejarano MD Work Phone: [facility] 09-26-2022 08:16-0400 Heart rate 81 /min Zak Bejarano MD Work Phone: [facility] 09-26-2022 08:16-0400 Respiratory rate 16 /min Zak Bejarano MD Work Phone: [facility] [employer] 09-26-2022 08:16-0400 Systolic blood pressure 130 mm[Hg] Zak Bejarano MD Work Phone: [facility] [employer] 09-25-2022 08:04-0400 SaO2% (BldA) [Mass fraction] 99 % Zak Bejarano MD Work Phone: [facility] [employer] 08-02-2022 18:01-0500 Body height 157.5 cm Pete Holt CNM Work Phone: [facility] [employer] 08-02-2022 18:01-0500 Body mass index (BMI) [Ratio] 35.85 kg/m2 Pete Sol APRN - [place] Work Phone: [employer] 08-02-2022 18:01-0500 Body weight 88.91 kg Pete Holt CNM Work Phone: [employer] 08-02-2022 17:37-0500 Diastolic blood pressure 70 mm[Hg] Pete Holt CNM Work Phone: [facility] [employer] 08-02-2022 17:37-0500 Heart rate 93 /min Pete Holt CNM Work Phone: [facility] [employer] 08-02-2022 17:37-0500 Respiratory rate 18 /min Pete Holt CNM Work Phone: [employer] 08-02-2022 17:37-0500 Systolic blood pressure 118 mm[Hg] Pete Holt CNM Work Phone: [employer] 08-02-2022 17:17-0500 Body temperature 97.9 [degF] Pete Holt CNM Work Phone: [employer] 01-14-2020 10:40-0400 BMI (Body Mass Index) 30.2 kg/m2 [facility] Work Phone: 01-14-2020 10:40-0400 Body weight 74.84 kg [facility] Work Phone: 01-14-2020 10:40-0400 BSA (Body Surface Area) 1.76 m2 [facility] Work Phone: 01-14-2020 10:40-0400 Height 157.48 cm [facility] Work Phone: Encounters Encounter Date Encounter Type Care Provider Facility Start: 12-21-2023 End: 12-21-2023 ambulatory MELO CAROLE Not Available Start: 12-07-2023 End: 12-07-2023 ambulatory REINALDO MEENAKSHI Not Available Start: 11-23-2023 End: 11-23-2023 ambulatory MELO CAROLE Not Available Start: 11-08-2023 End: 11-08-2023 ambulatory MELO CAROLE Not Available Start: 10-11-2023 End: 10-11-2023 ambulatory REINALDO MEENAKSHI Not Available Start: 09-07-2023 End: 09-07-2023 ambulatory MELO CAROLE Not Available Start: 08-09-2023 End: 08-09-2023 ambulatory REINALDO MEENAKSHI Not Available Start: 07-06-2023 End: 07-06-2023 ambulatory MELO CAROLE Not Available Start: 06-07-2023 End: 06-07-2023 ambulatory REINALDO MEENAKSHI Not Available Start: 09-24-2022 End: 09-26-2022 Evaluation and management of inpatient Zak Bejarano MD Work Phone: [facility] Start: 09-14-2022 End: 09-15-2022 ambulatory NICK Moore [facility] Start: 09-14-2022 End: 09-14-2022 Subsequent hospital visit by physician Nick Quiñones SURG RN - INS[employer]OR [employer] Work Phone: [facility] Comment on above: 36 weeks gestation o f Start: 09-14-2022 End: 09-14-2022 [facility]ulatory [facility] Start: 09-14-2022 End: 09-14-2022 Subsequent hospital visit by physician Nick Holt CNP Work Phone: [facility] Laboratory Comment on above: Elevated blood press ure affecting , antepartum Start: 09-08-2022 End: 09-08-2022 ambulatory ADITYA Moore [facility] Start: 08-25-2022 End: 08-26-2022 ambulatory JACQUI Moore [facility] Start: 08-25-2022 End: 08-25-2022 Subsequent hospital visit by physician Nick Holt CNP Work Phone: [facility] [place] [facility] [employer]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 Comment on above: Encounter for superv ision of normal first in second trimester Start: 08-16-2022 End: 08-17-2022 ambulatory [facility] Start: 08-16-2022 End: 08-16-2022 Subsequent hospital visit by [facility] Echocardiography Comment on above: Light headedness; POTS (postural orthostatic tachycardia syndrome); Abnormal tilt table test Light headedness; POTS (postural orthostatic tachycardia syndrome); Abnormal tilt table test; 29 weeks gestation of ; Chest pain, unspecified type Start: 08-02-2022 End: 08-02-2022 ambulatory [facility] Start: 08-02-2022 End: 08-02-2022 Subsequent hospital visit by physician Pete Holt CNM Work Phone: [facility] Labor and Delivery Start: 02-21-2022 End: 02-22-2022 ambulatory [facility] Start: 02-21-2022 End: 02-21-2022 Subsequent hospital visit by physician Nick Holt CNP Work Phone: [facility] Laboratory Comment on above: Encounter for superv ision of normal , antepartum, unspecified ; Positive urine test Start: 01-25-2022 End: 01-26-2022 ambulatory [facility] Start: 01-25-2022 End: 01-25-2022 Subsequent hospital visit by physician [facility] EKG Comment on above: Heart palpitations Start: 01-13-2022 End: 01-14-2022 ambulatory NICK Moore [facility] Start: 01-13-2022 End: 01-13-2022 Subsequent hospital visit by physician Nick Quiñones SURG RN - INSPECTOR [employer] Work Phone: [facility] Laboratory Comment on above: Heart palpitations Start: 03-15-2021 End: 03-15-2021 Patient encounter procedure Cari Toribio MD [facility] Laboratory Start: 03-15-2021 End: 03-15-2021 Subsequent hospital visit by physician Cari Toribio MD [facility] Laboratory Comment on above: Women's annual routi ne gynecological examination Start: 01-14-2020 End: 01-14-2020 Patient encounter procedure Merimariluz Silva Work Phone: [facility] Work Phone: Start: 01-14-2020 End: 01-14-2020 Telemedicine consultation with patient Radha Cuevas Work Phone: [facility] Work Phone: Start: 10-12-2017 [facility] Start: 09-21-2017 [facility] Procedures Date Procedure Procedure Detail Performing [...] End: 09-14-2022 Comprehensive metabolic panel Elizabeth Galvez [facility] Work Phone: Start: 08-25-[address] gtt 3 specimens Jacqui Russell SURG RN - [facility] Work Phone: Start: 08-16-2022 Echo tthrc r-t 2d w/wom-mode compl spec&colr d Jade Soto MD Work Phone: Start: 08-02-2022 Urnls dip stick/tabl et rgnt auto w/o microscopy Pete Sol [facility] Work Phone: Start: 02-21-2022 Antibody screen Nick [facility] Work Phone: Start: 02-21-2022 End: 02-21-2022 Antibody hiv-1&hiv-2 single result Pete Sol [facility] Work Phone: Start: 02-21-2022 Drug screen, qualitate/multi Pete Sol [facility] Work Phone: Start: 01-13-2022 Basic metabolic pane l calcium total Nick Stein Stephanie [facility] Work Phone: Start: 03-15-2021 Microscopic observat ion [Identifier] in Cervix by Cyto stain Nick Stephanie [facility] Work Phone: Start: 01-14-2020 [employer] Gertrude Cuevas NEGATED: Highlighted row has not occurred!Start: 01-14-2020 reported prior surgical / procedural history Radha Cuevas Plan of Treatment Date Care Activity Detail Author Start: 03-15-2024 Screening for malignant neoplasm of cervix Pap smear [employer] [facility] Start: 05-09-2023 Depression Screen Depression Screen [employer] [facility] Start: 05-09-2023 Influenza vaccination Flu vaccine (#1) [employer] Comment on above: Postponed from 02/14/2022 (Patient Refus ed) Start: 02-21-2023 Screening for Chlamydia trachomatis [facility]lam[facility] Start: 02-03-2023 Depression Screen Depression Screen [facility] Start: 01-13-2023 COVID-19 Vaccine (#1) COVID-19 Vaccine (#[facility] [place] Comment on above: Postponed from 05/17/2000 (Patient Refus ed) Start: 01-13-2023 COVID-19 Vaccine (1) COVID-19 Vaccine (1[facility] Comment on above: Postponed from 11/14/2004 (Patient Refus ed) Start: 01-13-2023 Depression Screen Depression Screen [facility] Start: 01-13-2023 DTaP/Tdap/Td vaccine (1 - Tdap) DTaP/Tdap/Td vaccine (1 - Tdap) [facility] Comment on above: Postponed from 11/14/2018 (Patient Refus ed) Start: 01-13-2023 Hepatitis C screening Hepatitis C screen [facility] Comment on above: Postponed from 11/14/2017 (Patient Refus ed) Start: 01-13-2023 HIV screening [facility] Comment on above: Postponed from 11/14/2014 (Patient Refus ed) Start: 01-13-2023 HPV vaccine (1 - 2-dose series) HPV vaccine (1 - 2-dose series) [facility] Comment on above: Postponed from 11/14/2010 (Patient Refus ed) Start: 11-30-2022 End: 11-30-2022 Patient encounter procedure 11/30/2022 Office Visit Cardiology Samantha Mora PA-C [address] [place] [address] [facility] Start: 10-31-2022 End: 10-31-2022 ambulatory 10/31/2022 Visit Obstetrics and Gynecology Jacqui Russell, SURG RN - CNM [address] [place] [address] [facility] Obstetrics & Gynecology Start: 09-21-2022 End: 09-21-2022 Patient encounter procedure 09/21/2022 Office Visit Cardiology Samantha Mora PA-C [address] [place] [address] [facility] Start: 09-20-2022 End: 09-20-2022 Patient encounter procedure 09/20/2022 Routine Obstetrics and Gynecology Jacqui Russell, SURG RN - CNM [address] [place] [place] [address] [facility] Obstetrics & Gynecology Start: 09-14-2022 End: 09-14-2022 Patient encounter procedure 09/14/2022 Routine Obstetrics and Gynecology Elizabeth Galvez, SURG RN - CNM [address] [address] [facility] Obstetrics [facility] Gynecology Start: 09-08-2022 End: 09-08-2022 Patient encounter procedure 09/08/2022 Routine Obstetrics and Gynecology Aditya Galvan, IAN - FINANCE VICE PRESIDENT [address] [address] [facility] Obstetrics & Gynecology Start: 09-08-2022 End: 09-08-2022 Professional / ancillary services management 09/08/2022 Ancillary Procedure Obstetrics and Gynecology [facility] Start: 08-25-2022 End: 08-25-2022 Patient encounter procedure 08/25/2022 Routine Obstetrics and Gynecology Jacqui Russell, SURG RN - CNM [address] [place] [address] [facility] Obstetrics & Gynecology Start: 08-16-2022 End: 08-16-2022 Patient encounter procedure [facility] Echocardiography Start: 08-10-2022 End: 08-10-2022 Patient encounter procedure 08/10/2022 Routine Obstetrics and Gynecology MicheleArin Sylvester, DO [address] [place] [address] [facility] Obstetrics & Gynecology Start: 08-10-2022 End: 08-10-2022 Professional / ancillary services management 08/10/2022 Ancillary Procedure Obstetrics and Gynecology [facility] Obstetrics & Gynecology Start: 08-09-2022 End: 08-09-2022 Patient encounter procedure 08/09/2022 Office Visit Primary Care Nick Quiñones, SURG RN - INSPECTOR EYEGLASS FRAMES [address] [place] [address] [facility] Start: 08-03-2022 End: 08-03-2022 Patient encounter procedure 08/03/2022 Routine Obstetrics and Gynecology Elizabeth Galvez, SURG RN - CNM [address] [facility] [address] [place] [address] [facility] Obstetrics & Gynecology Start: 05-09-2022 End: 05-09-2022 Patient encounter procedure 05/09/2022 Office Visit Primary Care Nick Quiñones, SURG RN - INSPECTOR EYEGLASS FRAMES [address] [place] [address] [facility] Start: 04-04-2022 End: 04-04-2022 Patient encounter procedure 04/04/2022 Routine Obstetrics and Gynecology Pete Sol, SURG RN - CNM [address] [facility] [address] [place] [address] [facility] OBSTETRICS & [facility]YNECOLOGY [facility] Start: 03-17-2022 Influenza vaccination [facility] Start: 02-03-2022 End: 02-03-2022 Patient encounter procedure 02/03/2022 Office Visit Primary Care Nick Quiñones SURG RN - INSPECTOR EYEGLASS FRAMES [address] [place] [address] [facility] Start: 03-17-2021 Influenza vaccination Flu vaccine (#1) [employer] Phone: Start: 11-14-2020 Screening for malignant neoplasm of cervix Cervical cancer screen [employer] Phone: Start: 02-13-2020 _SARS-CoV-2 COVID19 test [facility] Work Phone: Start: 01-14-[address] COVID Drive up Testing [facility] Work Phone: Start: 11-14-2018 DTaP/Tdap/Td vaccine (1 - Tdap) DTaP/Tdap/Td vaccine (1 - Tdap) [employer] Phone: Start: 2015 Screening for Chlamydia trachomatis Chlamydia screen [employer] Start: 11-14-2014 HIV screening HIV screen [employer] Phone: Start: 2011 COVID-19 Vaccine (1) COVID-19 Vaccine (1) [employer] Phone: Start: 11-14-2010 HPV vaccine (1 - 2-dose series) HPV vaccine (1 - 2-dose series) [employer] Phone: Start: 11-14-2000 Varicella vaccine (1 of 2 - 2-dose childhood series) Varicella vaccine (1 of 2 - 2-dose childhood series) [employer] Phone: Start: 1999 Hepatitis C screening Hepatitis C screen [employer] Phone: End: 08-02-2022 Bacteria identified in Urine by Culture Urine culture Microbiology Routine One Time for 1 Occurrences starting 08/02/2022 until 08/02/2022 [facility] [email or web address] Phone: Comment on above: One Time for 1 Occurrences starting 07/17 until 08/02/2022 End: 09-24-2022 Bacteria identified in Urine by Culture Urine culture Microbiology Routine One Time for 1 Occurrences starting 09/24/2022 until 09/24/2022 [employer] Phone: Comment on above: One Time for 1 Occurrences starting 09/14 until 09/24/2022 End: 02-21-2022 C.trachomatis N.gonorrhoeae DNA, Urine [employer] Phone: Comment on above: 1 Occurrences starting 02/21/2022 until 02/21/2022 End: 08-16-2022 Continuous cardiac monitoring, >2 up to 14 days Continuous cardiac monitoring, >2 up to 14 days Cardiac Services Routine Light headedness POTS (postural orthostatic tachycardia syndrome) Abnormal tilt table test 29 weeks gestation of Chest pain, unspecified type 1 Occurrences starting 08/16/2022 until 08/16/2022 [employer] Phone: Comment on above: 1 Occurrences starting 08/16/2022 until 08/16/2022 Continuous pulse oximetry Pulse oximetry, continuous while on epidural Respiratory Care Routine Every 4hr until discontinued starting 09/25/2022 [employer] Phone: Comment on above: Every 4hr until discontinued starting End: 09-14-2022 Culture, Strep B Screen, Vaginal/Rectal [employer] Phone: Comment on above: 1 Occurrences starting 09/14/2022 until 09/14/2022 End: 02-21-2022 Culture, Urine [employer] [facility] Work Phone: Comment on above: 1 Occurrences starting 02/21/2022 until 02/21/2022 End: 03-15-2021 Cytopathology procedure, preparation of smear, genital source [facility] Lab Routine Women's annual routine gynecological examination 1 Occurrences starting 03/15/2021 until 03/15/2021 [employer] Phone: Comment on above: 1 Occurrences starting 03/15/2021 until 03/15/2021 nonstress test nonst ress test OB Routine Daily until discontinued starting 08/03/2022 [employer] Phone: Comment on above: Daily until discontinued starting 2022 nonstress test nonst ress test OB Routine Daily until discontinued starting 09/25/2022 [employer] Phone: Comment on above: Daily until discontinued starting 2022 Nonrebreather mask oxygen Nonrebreather mask oxygen Respiratory Care Routine As directed - RT (PRN) until discontinued starting 08/02/2022 [employer] Phone: Comment on above: As directed - RT (PRN) until discontinue d starting 08/02/2022 Nonrebreather mask oxygen Nonrebreather mask oxygen Respiratory Care Routine As directed - RT (PRN) until discontinued starting 09/24/2022 [employer] Phone: Comment on above: As directed - RT (PRN) until discontinue d starting 09/24/2022 Nonrebreather mask oxygen Nonrebreather mask oxygen Respiratory Care Routine As directed - RT (PRN) until discontinued starting 09/24/2022 [employer] Phone: Comment on above: As directed - RT (PRN) until discontinue d starting 09/24/2022 Oxygen therapy [Minimum Data Set] Initiate Oxygen Therapy Protocol while on epidural Respiratory Care Routine Daily until discontinued starting 09/24/2022 [employer] Phone: Comment on above: Daily until discontinued starting 2022 End: 09-25-2022 SURGICAL PATHOLOGY REPORT SURGICAL PATHOLOGY REPORT Lab Routine Once for 1 Occurrences starting 09/25/2022 until 09/25/2022 [employer] Phone: Comment on above: Once for 1 Occurrences starting 09/26/19 until 09/25/2022 End: 08-02-2022 SVE SVE Point of Care Testing Routine One Time for 1 Occurrences starting 08/02/2022 until 08/02/2022 [employer] Phone: Comment on above: One Time for 1 Occurrences starting 07/17 until 08/02/2022 End: 09-24-2022 SVE SVE Point of Care Testing Routine One Time for 1 Occurrences starting 09/24/2022 until 09/24/2022 [employer] Work Phone: Comment on above: One Time for 1 Occurrences starting 09/14 until 09/24/2022 Immunizations Immunization Date Immunization Notes Care Provider Fa cili 09-25-2022 diphtheria, tetanus toxoids and acellular pertussis vaccine, unspecified formulation Zak Bejarano MD Work Phone: [employer] Phone: Payers Date Payer Category Payer Unknown [id number] 1.2.84 [id number] 2014 Unknown [id number]. [id number] 1999 Unknown [id number] 2.16.8 40.1.596245.3.579.2.173 1999 Unknown [id number] 2.16.8 40.1.422135.3.579.2.173 1999 Unknown [id number] 2.16.8 40.1.830184.3.579.2.173 1999 Unknown [id number] 2.16.8 40.1.360750.3.579.2.173 1999 Unknown [id number] 2.16.8 40.1.571658.3.579.2.173 1999 Unknown [id number] 2.16.8 40.1.591007.3.579.2.173 1999 Unknown [id number] 2.16.8 40.1.084455.3.579.2.173 1999 Unknown [id number] 2.16.8 40.1.760728.3.579.2.173 1999 Unknown [id number] 2.16.8 40.1.281020.3.579.2.173 1999 Unknown [id number] 2.16.8 40.1.412798.3.579.2.173 1999 Unknown [id number] 2.16. 840.1.166384.3.579.2.175 1999 Unknown [id number] 2.16. 840.1.536089.3.579.2.175 1999 Unknown [id number] 2.16. 840.1.241050.3.579.2.175 1999 Unknown [id number] 2.16. 840.1.082776.3.579.2.175 1999 Unknown [id number] 2.16.84 0.1.233348.3.579.2.9 1999 Unknown [id number] 2.16.84 0.1.827173.3.579.2.9 1999 Unknown [id number] 2.16.84 0.1.606236.3.579.2.9 1999 Unknown [id number] 2.16.84 0.1.645937.3.579.2.9 1999 Unknown [id number] 2.16.84 0.1.836347.3.579.2.9 1999 Unknown [id number] 2.16.84 0.1.788138.3.579.2.9 1999 Unknown [id number] 2.16.84 0.1.576861.3.579.2.9 1999 Unknown [id number] 2.16.840 .1.863437.3.579.2.9 1999 Unknown [id number] 2.16.840 .1.500062.3.579.2.1259 Self-pay [id number] 2.16.840 .1.230306.3.140.1.37650.5.4 Social History Date Type Detail Facility Assertion Gender identity finding (finding) [facility] Work Phone: Assertion Finding of sexua l orientation (finding) [facility] Work Phone: Tobacco smoking status Unknown if ever smoked [facility] Work Phone: Start: 05-18-2012 End: 03-15-2021 Tobacco smoking status NHIS Never smoker [employer] Phone: Start: 05-18-2012 End: 03-15-2021 Tobacco use and exposure Never used [employer] Start: 03-15-2021 End: 09-25-2022 Alcohol intake Current non-drinker of alcohol (finding) [employer] Phone: Start: 1999 Sex Assigned At Not on file M [employer] Phone: Start: 01-13-2022 History SDOH Financial 5 [employer] Work Phone: Start: 01-13-2022 History SDOH Food Worry 1 [facility] [employer] Phone: Start: 01-19-2022 JUAN Cristina [employer] Phone: Start: 07-23-2022 End: 09-24-2022 Exposure to SARS-CoV-2 (event) Not sure [facility] [email or web address] Phone: NEGATED: Highlighted row Assertion Current drinker of alcohol (finding) [facility] Work Phone: NEGATED: Highlighted row Assertion Finding relating to drug misuse behavior (finding) Health [facility] Work Phone: NEGATED: Highlighted row Assertion Exposure to pollution (event) [facility] Work Phone: NEGATED: Highlighted row Assertion Tobacco user (finding) Health [facility] Work Phone: Clinical Notes 01-25-2022 to 09-26-2022 Discharge InstructionsIAN Hernandez CNM - 09/26/2022 9:02 AM Facundo Grant APRN - [place] - 09/26/2022 8:56 AM Javier Bejarano MD - 09/24/2022 10:40 PM [employer] Work - 08/16/2022 10:00 AM EST Note Date & Type Note Facility 09-26-2022 Hospital Discharg e instructions Kiran Gamino RN - 09/26/2022 9:55 AM EDT Follow-up with your OB doctor as specified. [facility] OB Department phone: Dr. Asya Gruber CNM Dr. Skye Sol CNM [address] [facility] [address] [facility] [address] [place] [address] [place] [address] Skye Russell CN [address] [facility] [address] [phone] Kenya Tinajero, MSN, SURG RN, CNM [facility] [address] [facility] [address] [address] Shields [address] [facility] [address] Pete Recio CNM [address] [place] [address] [place] [address] Zenaida Grant CNM [address] [place] [address] [place] [address] [phone] DIET Eat a well balanced diet focusing on foods high in fiber and protein. Drink plenty of fluids especially water. To avoid constipation you may take a mild stool softener as recommended by your doctor or car oiler. ACTIVITY Gradually increase your activity. Resume exercise regimen only after advice by your doctor or car oiler. Avoid lifting anything heavier than a gallon of milk for SIX weeks. Avoid driving until your doctor or car oiler has given their approval. Rise slowly from [...] medications as recommended by your doctor or car oiler for pain If you develop a warm, [...] vitamins as directed by your doctor or car oiler. Refer to the booklet in the folder/binder for more information. If you feel you need more assistance or have questions, please call Stacey Rodriguez IBCLC, medical cost consultant, at or the OB department to [...] your calf. documented in this encounter [facility] [employer] Work Phone: 09-26-2022 Hospital course Narrative Obstetrical [...] NONREACTIVE Final HIV: No results found for: [id number] Results for orders placed or performed during the hospital encounter of 09/24/22 Urinalysis Result Value Ref Range Color, UA Yellow Yellow Turbidity UA Clear Clear Glucose, Ur NEGATIVE NEGATIVE Bilirubin Urine NEGATIVE NEGATIVE Ketones, Urine TRACE (A) NEGATIVE Specific [place], UA 1.010 1.010 - 1.020 Urine Hgb [...] # 2.52 1.10 - 3.70 k/uL Absolute [place] # 0.80 0.10 - 1.20 k/uL Absolute [...] Range Expiration Date 09/27/2022,2359 Arm Band Number [id number] ABO/Rh A POSITIVE Antibody Screen NEGATIVE complications: [...] Your Medications These medications were sent to [facility] - [place], [place] - [address] - P [phone] F [phone] [address], [place] [address] docusate 100 MG Caps ibuprofen 800 MG tablet Admit date: 09/24/2022 3:00 PM Discharge Date: 09/26/2022 Discharged to: Home in stable condition Plan: Follow up in 6 week(s) for post visit, blood pressure check, breast feeding check, and post depression check documented in this encounter [facility] [email or web address] Phone: 09-26-2022 History of Presen t illness [...] rate: Baseline Heart Rate: 125 Accelerations: present Combination 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 S/P AROM. Patient progressing continue current management Provider at bedside. Admission orders received from Dr Bejarano. Amnioswab negative. documented in this encounter [employer] Phone: 08-16-2022 History of Presen t illness Narrative Explained policies and procedure of an echocardiogram/Doppler study. Patient instructed on extended front desk monitor indications and use. Diary sent with patient. 5-7 days documented in this encounter [employer] Phone: 08-02-2022 History of Presen t illness [...] urine sample. documented in this encounter [facility] [employer] Work Phone: 08-02-2022 Hospital Discharg e instructions Wendy Choudhary RN - 08/02/2022 6:20 PM EST OUTPATIENT DISCHARGE Dr Skye Russell [facility] [address] [facility] [address] [phone] ACTIVITY LIMITATIONS: ( X )Up and about [...] AND DELIVERY . documented in this encounter [employer] Phone: 01-25-2022 History of Presen t illness Narrative Explained Holter monitor and diary. documented in this encounter [employer] Phone: Evaluation note Diagnosis Women's annual routine gynecological examination documented in this encounter [employer] Phone: evaluation note* Diagnosis Heart palpitations Palpitations documented in this encounter [employer] Phone: evaluation note* Diagnosis Heart palpitations Palpitations documented in this encounter [employer] Phone: evaluation note* Diagnosis Encounter for supervision of normal , antepartum, unspecified Positive urine test documented in this encounter [employer] Phone: evaluation note* Diagnosis contractions- Primary Unspecified abnormality of labor, antepartum documented in this encounter [employer] Phone: evaluation note* Diagnosis Light headedness Dizziness and giddiness POTS (postural orthostatic tachycardia syndrome) Tachycardia, unspecified Abnormal tilt table test Other nonspecific abnormal result of function study of brain and central nervous system documented in this encounter [employer] Phone: evaluation note* Diagnosis Light headedness Dizziness and giddiness POTS (postural orthostatic tachycardia syndrome) Tachycardia, unspecified Abnormal tilt table test Other nonspecific abnormal result of function study of brain and central nervous system 29 weeks gestation of state, incidental Chest pain, unspecified type documented in this encounter [employer] Phone: evaluation note* Diagnosis Encounter for supervision of normal first in second trimester Supervision of normal first documented in this encounter [employer] Phone: evaluation note* Diagnosis 36 weeks gestation of state, incidental documented in this encounter [employer] Phone: evaldcegmn note* Diagnosis Elevated blood pressure affecting , antepartum documented in this encounter [employer] Phone: evaluation note* Diagnosis Elevated blood pressure affecting , antepartum documented in this encounter [employer] Phone: evaluation note* Diagnosis (spontaneous vaginal delivery)- Primary Normal delivery Rupture of membranes with delay of delivery Term documented in this encounter [employer] Phone: Summary Purpose Family History No Family History Records Found Description Last Updated Maternal history of family history of is chemic heart disease 01/14/2020 Paternal history of family history of is chemic heart disease 01/14/2020 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s No Advanced Directives Records FoundDocuments on File Type Date Recorded 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 Documents on File Type Date Recorded 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 Latest Code Status on File Code Status [...] palpitations Procedures Holter Monitor 48 Hour Nick Quiñones APRN - CNP [address] [place] [address] Referral ID Status Reason Start Date Expiration Date Visits Re quested Visits Authorized [id number] Closed 01/13/2022 01/13/2023 1 1 Specialty Diagnoses / Procedures Referred By Contac t Referred To Contact Cardiology Diagnoses Light headedness POTS (postural orthostatic tachycardia syndrome) Abnormal tilt table test Procedures Echo 2D w doppler w color complete Jade Soto MD [address] [place], [place] [id number] Referral ID Status Reason Start Date Expiration Date Visits Re quested Visits Authorized [id number] Closed 08/04/2022 08/10/2023 1 1 Specialty Diagnoses / Procedures Referred By Contac t Referred To Contact Diagnoses Light headedness POTS (postural orthostatic tachycardia syndrome) Abnormal tilt table test 29 weeks gestation of Chest pain, unspecified type Procedures Continuous cardiac monitoring, >2 up to 14 days Jade Soto MD [address] [place] [id number] Referral ID Status Reason Start Date Expiration Date Visits Re quested Visits Authorized [id number] Closed 07/27/2022 07/27/2023 1 1 Assessments Findings Encounter Date Body mass index Telemedicine with Radha Saleem FINANCE VICE PRESIDENT 01/14/2020 Exposure to a viral disease Telemedicine [...] DATE CREATED AUTHOR AUTHOR'S ORGANIZ ATION 09/28/2022 [facility] DATE CREATED AUTHOR AUTHOR'S ORGANIZ ATION 07/08/2023 [facility] DATE CREATED AUTHOR AUTHOR'S ORGANIZ ATION 12/22/2023 [facility] dical Specialists EPIC Evaluations & Outcomes (unre cognized section and content) Includes: Evaluations & Outcomes for active GoalsNo Outcomes Recorded Includes: Evaluations & Outcomes for active GoalsNo Outcomes Recorded Care Teams (unrecognized sec tion and content) 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 Specialty Start Date End Date Nick Quiñones APRN - INSPECTOR [employer] FRAMES [address] [place] [address] PCP - General Certified Nurse 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 Specialty Start Date End Date Nick Quiñones APRN - INSPECTOR [employer]AMES [address] [place] [address] PCP - General Certified Nurse 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 Specialty Start Date End Date Nick Quiñones APRN - INSPECTOR [employer] FRAMES [address] [place] [address] PCP - General Certified Nurse 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 Specialty Start Date End Date Nick Quiñones APRN - INSPECTOR [employer] FRAMES [address] [place] [address] PCP - General Certified Nurse 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 Specialty Start Date End Date Nick Quiñones APRN - INSPECTOR [employer] FRAMES [address] [place] [address] PCP - General Certified Nurse 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 Specialty Start Date End Date Nick Quiñones APRN - INSPECTOR [employer] FRAMES [address] [place] [address] PCP - General Certified Nurse 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 Specialty Start Date End Date Nick Quiñones SURG RN - INSPECTOR [employer] FRAMES [address] [place] [address] PCP - General Certified Nurse 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 Specialty Start Date End Date Nick Quiñones SURG RN - INSPECTOR [employer] FRAMES [address] [place] [address] PCP - General Certified Nurse 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 Specialty Start Date End Date Nick Quiñones SURG RN - INSPECTOR [employer] FRAMES [address] [place] [address] PCP - General Certified Nurse 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 Specialty Start Date End Date Nick Quiñones SURG RN - INSPECTOR [employer] FRAMES [address] [place] [id number] PCP - General Certified Nurse 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 01/13/22 Reason for Visit (unrecogniz ed section and content) Specialty Diagnoses / Procedures Referred By Contac t Referred To Contact Diagnoses Heart palpitations Procedures Holter Monitor 48 Hour Nick Quiñones APRN - INSPECTOR [employer] FRAMES [address] [place] [address] Referral ID Status Reason Start Date Expiration Date Visits Re quested Visits Authorized [id number] Closed 01/13/2022 01/13/2023 1 1 Reason Comments Contractions Specialty Diagnoses / Procedures Referred By Contac t Referred To Contact Cardiology Diagnoses Light headedness POTS (postural orthostatic tachycardia syndrome) Abnormal tilt table test Procedures Echo 2D w doppler w color complete Jade Soto MD [address] [place] [address] Referral ID Status Reason Start Date Expiration Date Visits Re quested Visits Authorized [id number] Closed 08/04/2022 08/10/2023 1 1 Specialty Diagnoses / Procedures Referred By Contac t Referred To Contact Diagnoses Light headedness POTS (postural orthostatic tachycardia syndrome) Abnormal tilt table test 29 weeks gestation of Chest pain, unspecified type Procedures Continuous cardiac monitoring, >2 up to 14 days Jade Soto MD [address] [place], [place] [id number] Referral ID Status Reason Start Date Expiration Date Visits Re quested Visits Authorized [id number] Closed 07/27/2022 07/27/2023 1 1 Reason Comments [...] No full meal)1556 (Given - Provider: Marycruz Lloyd, RN) 0800 (Due)1700 (Due) sodium chloride flush [...] mL/lumen, 1045 (Due)2100 (Due) 0900 (Due)2100 (Due) dpqpqyq-vyakqt-lhxnl pertussis (BOOSTRIX) injection 0.5 mL 0.5 mL, [...] Patti Patterson RN - Comment: [Action automatically changed])1909 (Rate/Dose Change - Provider: Toya David RN)1917 (Rate/Dose Change - Provider: Toya David RN)1928 (Rate/Dose Change - Provider: Toya David RN)1955 (Rate/Dose Change - Provider: Toya David RN)1955 (Paused - Provider: Toya David RN)1956 (Rate/Dose Change - Provider: Toya David RN)2008 (Rate/Dose Change - Provider: Toya David RN)2010 (Rate/Dose Change - Provider: Tyoa David RN)2244 (Rate/Dose Verify - Provider: Toya David RN)2331 (Rate/Dose Verify - Provider: Toya David RN)2332 [...] every 2-3 minutes with cervical changes or Temple units (MVU) greater than 200 in a [...] Oral, EVERY 8 HOURS PRN, Starting on [place] 09/25/22 at 2228, Until Discontinued, Pain Mild (1-3), Pain Moderate (4-6), Do not crush or chew. 2252 (Given - Provider: Dang Bruno, RN) 0932 (Given - Provider: Kiran Gamino [...] PRN, Dry Skin, nipple discomfort, Starting on [place] 09/25/22 at 1023, methylergonovine (METHERGINE) injection 200 [...] BE BASED ON THE PRIMARY CLINICAL RECORDS. [employer] [facility]. provides no warranty or guarantee of the accuracy or completeness of information in this document.
[2023-12-29 13:45] LABS: Bilirubin Urine NEGATIVE (NEGATIVE); Blood Urine NEGATIVE (NEGATIVE); Clarity Urine CLEAR (CLEAR); Color Urine LT. YELLOW (YELLOW); Glucose Urine UA NEGATIVE (NEGATIVE); Ketones Urine 15 mg/dL (NEGATIVE); Leukocyte Esterase Urine TRACE (NEGATIVE); Nitrite Urine NEGATIVE (NEGATIVE); Protein Urine NEGATIVE (NEG/TRACE); Urobilinogen Urine 0.2 EU/dL (0.2-1.0)
[2023-12-29 13:52] LABS: Amnisure NEGATIVE (NEGATIVE); Internal Control Within Normal Limits
[2023-12-29 13:54] LABS: Urine Microscopic Indicated YES
[2023-12-29] MEDS: 0.9 % SODIUM CHLORIDE 1,000 ML 125 ML IV (14:05)
[2023-12-29 14:06] LABS: Bacteria Urine TRACE #/HPF (NONE SEEN); Cast Seen? NONE SEEN #/LPF (NONE SEEN); Crystals Seen? None Seen #/HPF (None Seen); Mucus Urine TRACE (NONE SEEN); RBC Urine NONE SEEN #/HPF (0-2); Squamous Epithelial Cell Urine FEW #/LPF (NONE/RARE); Urine Culture Indicated NO; WBC Urine 0-2 #/HPF (NONE SEEN)
[2023-12-29 14:10] VITALS: BP 99/58; PULSE 108
[2023-12-29 17:12] LABS: Bilirubin Urine NEGATIVE (NEGATIVE); Blood Urine NEGATIVE (NEGATIVE); Clarity Urine CLEAR (CLEAR); Color Urine LT. YELLOW (YELLOW); Glucose Urine UA NEGATIVE (NEGATIVE); Ketones Urine >=80 mg/dL (NEGATIVE); Leukocyte Esterase Urine NEGATIVE (NEGATIVE); Nitrite Urine NEGATIVE (NEGATIVE); Protein Urine NEGATIVE (NEG/TRACE); Specific Gravity Urine 1.025 (1.005-1.025); pH Urine 6.5 (5.0-9.0)
[2023-12-29 17:22] LABS: Bacteria Urine TRACE #/HPF (NONE SEEN); Cast Seen? NONE SEEN #/LPF (NONE SEEN); Crystals Seen? None Seen #/HPF (None Seen); Mucus Urine MODERATE (NONE SEEN); RBC Urine NONE SEEN #/HPF (0-2); Squamous Epithelial Cell Urine FEW #/LPF (NONE/RARE); Urine Culture Indicated NO; WBC Urine NONE SEEN #/HPF (NONE SEEN)
[2023-12-29 17:35] LABS: Ketones Urine 15 mg/dL (NEGATIVE)
[2023-12-29 17:39] LABS: Ketones Urine >=80 mg/dL (NEGATIVE)
== END 2023-12-29 17:59 | disposition home or self-care (01) ==
LOC: FBC 13:11
PROVIDERS: Admitting Provider Obstetrics & Gynecology; Visit Provider Obstetrics & Gynecology
DX: Z03.71 Encounter for suspected problem with amniotic cavity and membrane ruled out (principal); Z3A.35 35 weeks gestation of pregnancy
CPT/HCPCS: 59025; 81001; 84112; G0378; G0379

== ENCOUNTER 2024-01-07 14:48 | Observation (INO) | payer OTHER, BC, SELFPAY ==
--- OUTSIDE RECORDS SUMMARY | 2024-01-07 14:53 | XMS_ITS | CCD ---
Author Organization [facility] Care Team Providers Care Data Virtualization Consultant Name Role Phone ROJAS, WICHO S Unavailable Unavailable ROJAS, WICHO S Unavailable Unavailable ROJAS, WICHO S Unavailable Unavailable ROJAS, WICOH S Unavailable Unavailable ROJAS, WICHO S Unavailable Unavailable ROJAS, WICHO S Unavailable Unavailable Radha Cuevas Primary Care Provider [phone] [place], Cari Smith Primary Care Provider Unav ailable Stephanie FBI INVESTIGATOR - RACKING MACHINE OPERATOR, Nick Stein Primary Care Provid er Stephanie FBI INVESTIGATOR - RACKING MACHINE OPERATOR, Nick L Primary Care Provid er Stephanie FBI INVESTIGATOR - RACKING MACHINE OPERATOR, Nick L Primary Care Provid er STEPHANIE [...] LAM Attending Unavailable MELO LAM Attending Unavailable Medications Current Medications Medication Drug Class(es) Dates Sig (Normalized) Sig (Original) acetaminophen 500 mg oral tablet (3 sources) Start: 09-25-2022 acetaminophen (TYLENOL) tablet 1,000 mg Start: 09-24-2022 acetaminophen (TYLENOL) tablet 650 mg take [address] [facility] every six hours as needed acetaminophen (TYLENOL) [...] 1000 mg/ml topical cream (1 source) Start: 03-12-2023 lansinoh lanolin ointment 24 hr loratadine 10 [...] Episodic Unclassified (1 source) Hip Pain / [id number]() Onset: 10-12-2017 Past or Other Problems Problem [...] Results Test Name Value Interpretation Reference Range [facility] Surgical Pathologyon 023 Surgical Pathology (NOTE) -- [...] SURGICAL PATHOLOGY CONSULTATION Patient Name: FABIEN PERAZA [facility] Rec: [id number] Path Number: [id number] [facility] ANATOMIC PATHOLOGY [address] [place] [phone] [facility] Comment on above: Performed By: #### U CGP #### [employer] [address] [place] [address] Drill Instructor: Diego Bashir MD Type + Screenon 09-25-2022 Type + Screen Sample Expiration 09/27/2022,2359 Arm Band Number [id number] ABO/Rh(D) A POSITIVE Antibody Screen NEGATIVE [facility] Comment on above: Performed By: #### U CGP #### [employer] [address] [place] [address] Drill Instructor: Diego Bashir MD CBC with Auto Differentialon 09-24-2022 Absolute Eos # 0.08 [facility] [employer] Absolute Immature Granulocyte 0.11 [facility] [employer] Absolute Lymph # 2.52 [facility] Absolute Labette # 0.80 [facility] [employer] Basophils (Bld) [#/Vol] 0.05 10*3/uL [facility] [employer] Basophils/100 WBC (Bld) 1 % 0 - 2 % [facility] Eosinophils/100 WBC (Bld) 1 % 1 - 4 % [facility] Hematocrit (Bld) [Volume fraction] 31.9 % Low 36.3 - 47.1 % [facility] Hemoglobin (Bld) [Mass/Vol] 10.5 g/dL Low 11.9 - 15.1 g/dL [facility] Immature granulocytes/100 WBC (Bld) 1 % High 0 [facility] Interpretation and review of laboratory results Abnormal [facility] Lymphocytes/100 WBC (Bld) 25 % 24 - 43 % [facility] MCH (RBC) [Entitic mass] 25.1 pg Low 25.2 - 33.5 pg [facility] MCHC (RBC) [Mass/Vol] 32.9 g/dL 28.4 - 34.8 g/dL [facility] MCV (RBC) [Entitic vol] 76.3 fL Low 82.6 - 102.9 fL [facility] Monocytes/100 WBC (Bld) 8 % 3 - 12 % [facility] NRBC Automated 0.0 0.0 per 100 WBC [facility] Platelet distribution width (Bld) [Ratio] 14.7 % High 11.8 - 14.4 % [facility] Platelet mean volume (Bld) [Entitic vol] 8.7 fL 8.1 - 13.5 fL [facility] Platelets (Bld) [#/Vol] 298 10*3/uL [facility] RBC (Bld) [#/Vol] 4.18 10*6/uL 3.95 - 5.11 m/uL [facility] Segmented neutrophils/100 WBC (Bld) 64 % 36 - 65 % [facility] Segs Absolute 6.71 [facility] WBC (Bld) [#/Vol] 10.3 10*3/uL [facility] CBC with Diffon 09-24-2022 Abs. Basophil 0.05 k/uL Normal 0.00-0.20 [facility] Comment on above: Performed By: #### U CGP #### [address] [address] Drill Instructor: Diego Bashir MD Abs.Imm.Granulocyte 0.11 k/uL Normal 0.00-0.30 [facility] Comment on above: Performed By: #### U CGP #### [address] [address] Drill Instructor: Diego Bashir MD Abs.Neutrophil (Seg) 6.71 k/uL Normal 1.50-8.10 [facility] Comment on above: Performed By: #### U CGP #### [address] [address] Drill Instructor: Diego Bashir MD Basophils/100 WBC (Bld) 1 % Normal 0-2 [facility] Comment on above: Performed By: #### U CGP #### [address] [address] Drill Instructor: Diego Bashir MD Eosinophils (Bld) [#/Vol] 0.08 10*3/uL Normal 0.00-0.44 [facility] Comment on above: Performed By: #### U CGP #### [address] [address] Drill Instructor: Diego Bashir MD Eosinophils/100 WBC (Bld) 1 % Normal 1-4 [facility] Comment on above: Performed By: #### U CGP #### [address] [address] Drill Instructor: Diego Bashir MD Erythrocyte distribution width (RBC) [Ratio] 14.7 % High 11.8-14.4 [facility] Comment on above: Performed By: #### U CGP #### [address] [address] Drill Instructor: Diego Bashir MD Hematocrit (Bld) [Volume fraction] 31.9 % Low 36.3-47.1 [facility] Comment on above: Performed By: #### U CGP #### [address] [address] Drill Instructor: Diego Bashir MD Hemoglobin (Bld) [Mass/Vol] 10.5 g/dL Low 11.9-15.1 [facility] Comment on above: Performed By: #### U CGP #### [address] [address] Drill Instructor: Diego Bashir MD Immature granulocytes/100 WBC (Bld) 1 % High 0 [facility] Comment on above: Performed By: #### U CGP #### [address] [address] Drill Instructor: Diego Bashir MD Lymphocytes (Bld) [#/Vol] 2.52 10*3/uL Normal 1.10-3.70 [facility] Comment on above: Performed By: #### U CGP #### [address] [address] Drill Instructor: Diego Bashir MD Lymphocytes/100 WBC (Bld) 25 % Normal 24-43 [facility] Comment on above: Performed By: #### U CGP #### [address] [address] Drill Instructor: Diego Bashir MD MCH (RBC) [Entitic mass] 25.1 pg Low 25.2-33.5 [facility] Comment on above: Performed By: #### U CGP #### [address] [address] Drill Instructor: Diego Bashir MD MCHC (RBC) [Mass/Vol] 32.9 g/dL Normal 28.4-34.8 [facility] Comment on above: Performed By: #### U CGP #### [address] [address] Drill Instructor: Diego Bashir MD MCV (RBC) [Entitic vol] 76.3 fL Low 82.6-102.9 [facility] Comment on above: Performed By: #### U CGP #### [address] [address] Drill Instructor: Diego Bashir MD Monocytes (Bld) [#/Vol] 0.80 10*3/uL Normal 0.10-1.20 [facility] Comment on above: Performed By: #### U CGP #### [address] [address] Drill Instructor: Diego Bashir MD Monocytes/100 WBC (Bld) 8 % Normal 3-12 [facility] Comment on above: Performed By: #### U CGP #### [address] [address] Drill Instructor: Diego Bashir MD Neutrophil (Seg) 64 % Normal 36-65 [facility] Comment on above: Performed By: #### U CGP #### [address] [address] Drill Instructor: Diego Bashir MD NRBC Automated 0.0 per 100 WBC Normal 0.0 [facility] Comment on above: Performed By: #### U CGP #### [address] [address] Drill Instructor: Diego Bashir MD Platelet mean volume (Bld) [Entitic vol] 8.7 fL Normal 8.1-13.5 [facility] Comment on above: Performed By: #### U CGP #### [address] [address] Drill Instructor: Diego Bashir MD Platelets (Bld) [#/Vol] 298 10*3/uL Normal 138-453 [facility] Comment on above: Performed By: #### U CGP #### [address] [address] Drill Instructor: Diego Bashir MD RBC (Bld) [#/Vol] 4.18 10*6/uL Normal 3.95-5.11 [facility] Comment on above: Performed By: #### U CGP #### [address] [place] [address] Drill Instructor: Diego Bashir MD WBC (Bld) [#/Vol] 10.3 10*3/uL Normal 3.5-11.3 [facility] Comment on above: Performed By: #### U CGP #### [address] [address] Drill Instructor: Diego Bashir MD Comp Metabolic Profon 2022 Albumin [Mass/Vol] 3.5 g/dL Normal 3.5-5.2 [facility] Comment on above: Performed By: #### U CGP #### [address] [address] Drill Instructor: Diego Bashir MD Albumin/Glob Ratio 1.1 Normal 1.0-2.5 [facility] Comment on above: Performed By: #### U CGP #### [address] [address] Drill Instructor: Diego Bashir MD Alkaline Phos 140 U/L High 35-104 [facility] Comment on above: Performed By: #### U CGP #### [address] [address] Drill Instructor: Diego Bashir MD ALT [Catalytic activity/Vol] 8 U/L Normal 5-33 [facility] Comment on above: Performed By: #### U CGP #### [address] [address] Drill Instructor: Diego Bashir MD Anion gap [Moles/Vol] 15 mmol/L Normal 9-17 [facility] Comment on above: Performed By: #### U CGP #### [address] [place] [address] Drill Instructor: Diego Bashir MD AST [Catalytic activity/Vol] 14 U/L Normal <32 [facility] Comment on above: Performed By: #### U CGP #### [address] [address] Drill Instructor: Diego Bashir MD Bilirubin [Mass/Vol] 0.3 mg/dL Normal 0.3-1.2 [facility] Comment on above: Performed By: #### U CGP #### [address] [address] Drill Instructor: Diego Bashir MD BUN/CRE Ratio 7 Low 9-20 [facility] Comment on above: Performed By: #### U CGP #### [address] [address] Drill Instructor: Diego Bashir MD Calcium [Mass/Vol] 8.9 mg/dL Normal 8.6-10.4 [facility] Comment on above: Performed By: #### U CGP #### [address] [address] Drill Instructor: Diego Bashir MD Chloride [Moles/Vol] 103 mmol/L Normal 98-107 [facility] Comment on above: Performed By: #### U CGP #### [address] [address] Drill Instructor: Diego Bashir MD CO2 [Moles/Vol] 18 mmol/L Low 20-31 [facility] Comment on above: Performed By: #### U CGP #### [address] [address] Drill Instructor: Diego Bashir MD Creatinine [Mass/Vol] 0.42 mg/dL Low 0.50-0.90 [facility] Comment on above: Performed By: #### U CGP #### [employer] [address] [place] [address] Drill Instructor: Diego Bashir MD GFR/1.73 sq M.predicted among non-blacks MDRD (S/P/Bld) [Vol rate/Area] mL/min/{1.73_m2} Normal >60 [facility] Comment on above: Result Comment: [...] secretion. Performed By: #### U CGP #### [facility] [address] [place] [address] Drill Instructor: Diego Bashir MD Glucose [Mass/Vol] 76 mg/dL Normal 70-99 [facility] Comment on above: Performed By: #### U CGP #### [employer] [address] [place] [address] Drill Instructor: Diego Bashir MD Potassium [Moles/Vol] 3.6 mmol/L Low 3.7-5.3 [facility] Comment on above: Performed By: #### U CGP #### [facility] [address] [place] [address] Drill Instructor: Diego Bashir MD Protein [Mass/Vol] 6.6 g/dL Normal 6.4-8.3 [facility] Comment on above: Performed By: #### U CGP #### [employer] [address] [place] [address] Drill Instructor: Diego Bashir MD Sodium [Moles/Vol] 136 mmol/L Normal 135-144 [facility] Comment on above: Performed By: #### U CGP #### [employer] [address] [place] [address] Drill Instructor: Diego Bashir MD Urea nitrogen [Mass/Vol] 3 mg/dL Low 6-20 [facility] Comment on above: Performed By: #### U CGP #### [facility] [address] [place] [address] Drill Instructor: Diego Bashir MD Comprehensive Metabolic Pane [facility] 09-24-2022 Albumin [Mass/Vol] 3.5 g/dL 3.5 - 5.2 g/dL [facility] Albumin/Globulin [Mass ratio] 1.1 {ratio} 1.0 - 2.5 [facility] ALP [Catalytic activity/Vol] 140 U/L High 35 - 104 U/L [facility] ALT [Catalytic activity/Vol] 8 U/L 5 - 33 U/L [facility] Anion gap [Moles/Vol] 15 mmol/L 9 - 17 mmol/L [facility] AST [Catalytic activity/Vol] 14 U/L NINF - 32 U/L [facility] Bilirubin [Mass/Vol] 0.3 mg/dL 0.3 - 1.2 mg/dL [facility] Calcium [Mass/Vol] 8.9 mg/dL 8.6 - 10.4 mg/dL [facility] Chloride [Moles/Vol] 103 mmol/L 98 - 107 mmol/L [facility] CO2 [Moles/Vol] 18 mmol/L Low 20 - 31 mmol/L [facility] Creatinine [Mass/Vol] 0.42 mg/dL Low 0.50 - 0.90 mg/dL [facility] GFR/1.73 sq M.predicted MDRD (S/P/Bld) [Vol rate/Area] - PINF [facility] Comment on above: These results are not [...] [Mass/Vol] 76 mg/dL 70 - 99 mg/dL [facility] Interpretation and review of laboratory results Abnormal [facility] Potassium [Moles/Vol] 3.6 mmol/L Low 3.7 - 5.3 mmol/L [facility] Protein [Mass/Vol] 6.6 g/dL 6.4 - 8.3 g/dL [facility] Sodium [Moles/Vol] 136 mmol/L 135 - 144 mmol/L [facility] Urea nitrogen [Mass/Vol] 3 mg/dL Low 6 - 20 mg/dL [facility] Urea nitrogen/Creatinine (Bld) [Mass ratio] 7 Low 9 - 20 [facility] DRUG SCREEN MULTI URINEon Amphetamine Screen, Ur Negative NEGATIVE [facility] Comment on above: (Positive cutoff 1000 ng/mL) Barbiturate Screen, Ur Negative NEGATIVE [facility] Comment on above: (Positive cutoff 200 ng/mL) Benzodiazepine Screen, Urine Negative NEGATIVE [facility] Comment on above: (Positive cutoff 200 ng/mL) Buprenorphine Urine Negative NEGATIVE [facility] Comment on above: (Positive cutoff 5 ng/ml) Cannabinoid Scrn, Ur Negative NEGATIVE [facility] Comment on above: (Positive cutoff 50 ng/mL) Cocaine Metabolite, Urine Negative NEGATIVE [facility] Comment on above: (Positive cutoff 300 ng/mL) Fentanyl, Ur Negative NEGATIVE [facility] Comment on above: (Positive cutoff 5 ng/ml) Methadone Screen, Urine Negative NEGATIVE [facility] Comment on above: (Positive cutoff 300 ng/mL) Opiates, Urine Negative NEGATIVE [facility] Comment on above: (Positive cutoff 300 ng/mL) Oxycodone Screen, Ur Negative NEGATIVE [facility] Comment on above: (Positive cutoff 100 ng/mL) Phencyclidine, Urine Negative NEGATIVE [facility] Comment on above: (Positive cutoff 25 ng/mL) [facility] Drug Scr, Abuse, Uron 2022 Amphetamine(s),Ur Negative Normal NEG [facility] Comment on above: Result Comment: (Positive cutoff 1000 ng/mL) Performed By: #### D AU #### [facility] [address] [place] [address] [place] [address] Drill Instructor: Artem Jones MD Barbiturate(s),Ur Negative Normal NEG [facility] Comment on above: Result Comment: (Positive cutoff 200 ng/mL) Performed By: #### D AU #### [address] [place], [place] [phone] Drill Instructor: Artem Jones MD Benzodiazepine(s) Negative Normal NEG [facility] Comment on above: Result Comment: (Positive cutoff 200 ng/mL) Performed By: #### D AU #### [address] [place], [place] [phone] Drill Instructor: Artem Jones MD Buprenorphrine, Ur Negative Normal NEG [facility] Comment on above: Result Comment: (Positive cutoff 5 ng/ml) Performed By: #### D AU #### [address] [place], [place] [phone] Drill Instructor: Artem Jones MD Cannabinoid(s),Ur Negative Normal NEG [facility] Comment on above: Result Comment: (Positive cutoff 50 ng/mL) Performed By: #### D AU #### [address] [place] [address] Drill Instructor: Artem Jones MD Cocaine Metabolite Negative [facility] Comment on above: Result Comment: (Positive cutoff 300 ng/mL) Performed By: #### D AU #### [facility] [address] [place] [address] [place], [place] [phone] Drill Instructor: Artem Jones MD Fentanyl, Urine Negative Normal NEG [facility] Comment on above: Result Comment: (Positive cutoff 5 ng/ml) Performed By: #### D AU #### [address] [place], [place] [phone] Drill Instructor: Artem Jones MD Methadone Ql (U) Negative Normal NEG [facility] Comment on above: Result Comment: (Positive cutoff 300 ng/mL) Performed By: #### D AU #### [facility] [address] [place] [address] [place] [address] Drill Instructor: Artem Jones MD Opiate(s), Ur Negative Normal NEG [facility] Comment on above: Result Comment: (Positive cutoff 300 ng/mL) Performed By: #### D AU #### [facility] [address] [place] [address] [place] [address] Drill Instructor: Artem Jones MD Oxycodone, Urine Negative Normal NEG [facility] Comment on above: Result Comment: (Positive cutoff 100 ng/mL) Performed By: #### D AU #### [address] [place] [place] [address] Drill Instructor: Artem Jones MD Phencyclidine, Ur Negative Normal [facility] Comment on above: Result Comment: (Positive cutoff 25 ng/mL) Performed By: #### D AU #### [address] [place] [address] Drill Instructor: Artem Jones MD Lactate Dehydrogenaseon 09-14 LDH [Catalytic activity/Vol] 158 U/L Normal 135-214 [facility] Comment on above: Performed By: #### U CGP #### [address] [address] Drill Instructor: Diego Bashir MD Cholesterol in LDL [Mass/Vol] 158 U/L 135 - 214 U/L [facility] Microscopic Urinalysison Bacteria, UA 2+ Abnormal None [facility] Epithelial Cells UA 0 TO 2 [facility] Interpretation and review of laboratory results Abnormal [facility] Mucus, UA TRACE Abnormal None [facility] RBC clumps Auto (Urine sed) [#/Area] 0 TO 2 [facility] WBC, UA 0 TO 2 [facility] No Panel Informationon 09-24 [facility] Protein / Creatinine Ratio, Urineon 09-24-2022 Creatinine, Ur 96.6 mg/dL 28.0 - 217.0 mg/dL [facility] Protein (U) [Mass/Vol] 17 mg/dL [facility] Comment on above: No normal range esta blished. Urine Total Protein Creatinine Ratio 0.18 0.00 - 0.20 [facility] Protein,Tot,[place] Uron 2022 Creatinine [Mass/Vol] 96.6 mg/dL Normal 28.0-217.0 [facility] Comment on above: Performed By: #### P RENAT #### [address] [address] Drill Instructor: Diego Bashir MD [facility] [address] [place] [address] [address] [place] [phone] Drill Instructor: Artem Jones MD Tot Prot. Conc. 17 mg/dL Normal [facility] Comment on above: Result Comment: No n ormal range established. Performed By: #### P RENAT #### [address] [address] Drill Instructor: Diego Bashir MD [facility] [address] [place] [address] Dr. [place] [phone] Drill Instructor: Artem Jones MD TP/Cre Ratio 0.18 Normal 0.00-0.20 [facility] Comment on above: Performed By: #### P RENAT #### [address] [address] Drill Instructor: Diego Bashir MD [facility] [address] [place] [address] Dr. [place] [phone] Drill Instructor: Artem Jones MD TYPE AND SCREENon 09-24-2022 ABO/Rh Positive [facility] Arm Band Number [id number] [facility] Expiration Date 09/27/2022,2359 [facility] Urinalysison 09-24-2022 Bilirubin Urine Negative NEGATIVE [facility] Color, UA Yellow Yellow [facility] Glucose Auto test strip (U) [Mass/Vol] Negative NEGATIVE [facility] Interpretation and review of laboratory results Abnormal [facility] Ketones (U) [Mass/Vol] TRACE Abnormal NEGATIVE [facility] Leukocyte esterase Auto test strip Ql (U) Negative NEGATIVE [facility] Nitrite Auto test strip Ql (U) Negative NEGATIVE [facility] Protein (U) [Mass/Vol] 7.5 mg/dL 5.0 - 9.0 [facility] Protein (U) [Mass/Vol] Negative NEGATIVE [facility] Specific [place], UA 1.010 1.010 - 1.020 B ON [facility] Turbidity UA Clear Clear [facility] Urine Hgb Negative NEGATIVE [facility] Urobilinogen, Urine Normal Normal [facility] Urinalysis, Routineon 2022 Bilirubin, SemiQt,Ur Negative Normal NEG [facility] Comment on above: Performed By: #### U CGP #### [employer] [address] [place] [address] Drill Instructor: Diego Bashir MD Blood, Urine Negative Normal NEG [facility] Comment on above: Performed By: #### U CGP #### [employer] [address] [place] [phone] Drill Instructor: Diego Bashir MD Clarity (U) Clear Normal CLEAR [facility] Comment on above: Performed By: #### U CGP #### [employer] [address] [place] [phone] Drill Instructor: Diego Bashir MD Color (U) Yellow Normal YEL [facility] Comment on above: Performed By: #### U CGP #### [employer] [address] [place], [place] [phone] Drill Instructor: Diego Bashir MD Glucose Ql (U) Negative Normal NEG [facility] Comment on above: Performed By: #### U CGP #### [address] [address] Drill Instructor: Diego Bashir MD Ketones Ql (U) TRACE Abnormal NEG [facility] Comment on above: Performed By: #### U CGP #### [address] [address] Drill Instructor: Diego Bashir MD Leukocyte esterase Test strip Ql (U) Negative Normal NEG [facility] Comment on above: Performed By: #### U CGP #### [address] [address] Drill Instructor: Diego Bashir MD Nitrite,Ur Negative Normal NEG [facility] Comment on above: Performed By: #### U CGP #### [address] [address] Drill Instructor: Diego Bashir MD PH,Ur 7.5 Normal 5.0-9.0 [facility] Comment on above: Performed By: #### U CGP #### [address] [address] Drill Instructor: Diego Bashir MD Protein Ql (U) Negative Normal NEG [facility] Comment on above: Performed By: #### U CGP #### [address] [address] Drill Instructor: Diego Bashir MD Spec. [place],Ur 1.010 Normal 1.010-1.020 [facility] Comment on above: Performed By: #### U CGP #### [address] [address] Drill Instructor: Diego Bashir MD Urobilinogen,Ur Normal Normal NORM [facility] Comment on above: Performed By: #### U CGP #### [address] [address] Drill Instructor: Diego Bashir MD Urinalysis,Microon 3 Bacteria 2+ Abnormal [facility] Comment on above: Performed By: #### U CGP #### [address] [address] Drill Instructor: Diego Bashir MD Epithelial cells LM Ql (Urine sed) 0 TO 2 Normal 0-25 [facility] Comment on above: Performed By: #### U CGP #### [address] [address] Drill Instructor: Diego Bashir MD Mucus Strands TRACE Abnormal [facility] Comment on above: Performed By: #### U CGP #### [address] [address] Drill Instructor: Diego Bashir MD Urine RBC's 0 TO 2 Normal 0-2 [facility] Comment on above: Performed By: #### U CGP #### [address] [address] Drill Instructor: Diego Bashir MD Urine WBC's 0 TO 2 Normal 0-5 [facility] Comment on above: Performed By: #### U CGP #### [address] [address] Drill Instructor: Diego Bashir MD Rule Out Grp.B Strepon 09-18 Rule Out Grp.B Strep Specimen Descriptio n .VAGINA Culture NEGATIVE FOR GROUP B STREPTOCOCCI Report Status FINAL 09/18/2022 Normal [facility] Comment on above: Performed By: #### R OGBS #### [address] [address] Drill Instructor: Diego Bashir MD EVENT MONITORon 09-16-2022 [address] [id number] EVENT MONITOR PATIENT NAME: FABIEN PERAZA : 2000 MED REC NO: [id number] ROOM: ACCOUNT NO: [id number] ADMIT DATE: 08/16/2022 PROVIDER: Jade Soto MD [...] CHASITY/JENIFER_SRIDEVIIT Doc#: Unknown CC: ASHELY Padilla Normal [facility] CBCon 09-14-2022 Erythrocyte distribution width (RBC) [Ratio] 14.4 % Normal 11.8-14.4 [facility] Comment on above: Performed By: #### P RENAT #### [place] [address] Drill Instructor: Diego Bashir MD [facility] [address] [place] [address] [place] [address] Drill Instructor: Artem Jones MD Hematocrit (Bld) [Volume fraction] 31.2 % Low 36.3-47.1 [facility] Comment on above: Performed By: #### P RENAT #### [place] [address] [place] [address] Drill Instructor: Diego Bashir MD [facility] [address] [place] [address] [place] [address] Drill Instructor: Artem Jones MD Hemoglobin (Bld) [Mass/Vol] 9.8 g/dL Low 11.9-15.1 [facility] Comment on above: Performed By: #### P RENAT #### [address] [address] Drill Instructor: Diego Bashir MD [address] [place] [address] Drill Instructor: Artem Jones MD MCH (RBC) [Entitic mass] 24.9 pg Low 25.2-33.5 [facility] Comment on above: Performed By: #### P RENAT #### [address] [address] Drill Instructor: Diego Bashir MD [address] [place] [address] Drill Instructor: Artem Jones MD MCHC (RBC) [Mass/Vol] 31.4 g/dL Normal 28.4-34.8 [facility] Comment on above: Performed By: #### P RENAT #### [address] [address] Drill Instructor: Diego Bashir MD [address] [place] [address] Drill Instructor: Artem Jones MD MCV (RBC) [Entitic vol] 79.2 fL Low 82.6-102.9 [facility] Comment on above: Performed By: #### P RENAT #### [address] [address] Drill Instructor: Diego Bashir MD [address] [place] [address] Drill Instructor: Artem Jones MD NRBC Automated 0.0 per 100 WBC Normal 0.0 [facility] Comment on above: Performed By: #### P RENAT #### [address] [address] Drill Instructor: Diego Bashir MD [address] [place] [address] Drill Instructor: Artem Jones MD Platelet mean volume (Bld) [Entitic vol] 8.3 fL Normal 8.1-13.5 [facility] Comment on above: Performed By: #### P RENAT #### [facility] [address] [place] [address] Drill Instructor: Diego Bashir MD [facility] [address] [place] [address] Dr. [place] [phone] Drill Instructor: Artem Jones MD Platelets (Bld) [#/Vol] 267 10*3/uL Normal 138-453 [facility] Comment on above: Performed By: #### P RENAT #### [address] [address] Drill Instructor: Diego Bashir MD [address] [place] [phone] Drill Instructor: Artem Jones MD RBC (Bld) [#/Vol] 3.94 10*6/uL Low 3.95-5.11 [facility] Comment on above: Performed By: #### P RENAT #### [address] [address] Drill Instructor: Diego Bashir MD [address] [place] [phone] Drill Instructor: Artem Jones MD WBC (Bld) [#/Vol] 10.7 10*3/uL Normal 3.5-11.3 [facility] Comment on above: Performed By: #### P RENAT #### [address] [address] Drill Instructor: Diego Bashir MD [address] [place] [phone] Drill Instructor: Artem Jones MD Hematocrit (Bld) [Volume fraction] 31.2 % Low 36.3 - 47.1 % [facility] Hemoglobin (Bld) [Mass/Vol] 9.8 g/dL Low 11.9 - 15.1 g/dL [facility] Interpretation and review of laboratory results Abnormal [facility] MCH (RBC) [Entitic mass] 24.9 pg Low 25.2 - 33.5 pg [facility] MCHC (RBC) [Mass/Vol] 31.4 g/dL 28.4 - 34.8 g/dL [facility] MCV (RBC) [Entitic vol] 79.2 fL Low 82.6 - 102.9 fL [facility] NRBC Automated 0.0 0.0 per 100 WBC [facility] Platelet distribution width (Bld) [Ratio] 14.4 % 11.8 - 14.4 % [facility] Platelet mean volume (Bld) [Entitic vol] 8.3 fL 8.1 - 13.5 fL [facility] Platelets (Bld) [#/Vol] 267 10*3/uL [facility] RBC (Bld) [#/Vol] 3.94 10*6/uL Low 3.95 - 5.11 m/uL [facility] WBC (Bld) [#/Vol] 10.7 10*3/uL [facility] Comp Metabolic Profon 2022 Albumin [Mass/Vol] 3.3 g/dL Low 3.5-5.2 [facility] Comment on above: Performed By: #### P RENAT #### [facility] [address] [place] [address] Drill Instructor: Diego Bashir MD [facility] [address] [place] [address] [place] [address] Drill Instructor: Artem Jones MD Albumin/Glob Ratio 1.0 Normal 1.0-2.5 [facility] Comment on above: Performed By: #### P RENAT #### [facility] [employer] [address] [place] [address] Drill Instructor: Diego Bashir MD [facility] [address] [place], [place] [phone] Drill Instructor: Artem Jones MD Alkaline Phos 124 U/L High 35-104 [facility] Comment on above: Performed By: #### P RENAT #### [facility] [address] [place] [address] Drill Instructor: Diego Bashir MD [facility] [address] [place] [address] Dr. [place] [phone] Drill Instructor: Artem Jones MD ALT [Catalytic activity/Vol] 7 U/L Normal 5-33 [facility] Comment on above: Performed By: #### P RENAT #### [address] [address] Drill Instructor: Diego Bashir MD [facility] [address] [place] [address] Dr. [place] [phone] Drill Instructor: Artem Jones MD Anion gap [Moles/Vol] 11 mmol/L Normal 9-17 [facility] Comment on above: Performed By: #### P RENAT #### [facility] [address] [place] [address] Drill Instructor: Diego Bashir MD [facility] [address] [place] [address] Dr. [place] [phone] Drill Instructor: Artem Jones MD AST [Catalytic activity/Vol] 12 U/L Normal <32 [facility] Comment on above: Performed By: #### P RENAT #### [facility] [address] [place] [address] Drill Instructor: Diego Bashir MD [facility] [address] [place] [address] Dr. [place] [phone] Drill Instructor: Artem Jones MD Bilirubin [Mass/Vol] 0.2 mg/dL Low 0.3-1.2 [facility] Comment on above: Performed By: #### P RENAT #### [address] [address] Drill Instructor: Diego Bashir MD [facility] [address] [place] [address] Dr. [place], [place] [phone] Drill Instructor: Artem Jones MD BUN/CRE Ratio 8 Low 9-20 [facility] Comment on above: Performed By: #### P RENAT #### [facility] [address] [place] [address] Drill Instructor: Diego Bashir MD [facility] [address] [place] [address] Dr. [place], [place] [phone] Drill Instructor: Artem Jones MD Calcium [Mass/Vol] 9.4 mg/dL Normal 8.6-10.4 [facility] Comment on above: Performed By: #### P RENAT #### [address] [address] Drill Instructor: Diego Bashir MD [facility] [address] [place] [address] Dr. [place], [place] [phone] Drill Instructor: Artem Jones MD Chloride [Moles/Vol] 105 mmol/L Normal 98-107 [facility] Comment on above: Performed By: #### P RENAT #### [facility] [address] [place] [address] Drill Instructor: Diego Bashir MD [address] [place], [place] [phone] Drill Instructor: Artem Jones MD CO2 [Moles/Vol] 22 mmol/L Normal 20-31 [facility] Comment on above: Performed By: #### P RENAT #### [facility] [address] [place] [address] Drill Instructor: Diego Bashir MD [facility] [address] [place] [address] Dr. [place], [place] [phone] Drill Instructor: Artem Jones MD Creatinine [Mass/Vol] 0.50 mg/dL Normal 0.50-0.90 [facility] Comment on above: Performed By: #### P RENAT #### [address] [place] [address] Drill Instructor: Diego Bashir MD [address] [place] [address] Drill Instructor: Artem Jones MD GFR/1.73 sq M.predicted among non-blacks MDRD (S/P/Bld) [Vol rate/Area] mL/min/{1.73_m2} Normal >60 [facility] Comment on above: Result Comment: [...] secretion. Performed By: #### P RENAT #### [address] [address] Drill Instructor: Diego Bashir MD [address] [place] [address] Drill Instructor: Artem Jones MD Glucose [Mass/Vol] 108 mg/dL High 70-99 [facility] Comment on above: Performed By: #### P RENAT #### [address] [address] Drill Instructor: Diego Bashir MD [address] [place] [address] Drill Instructor: Artem Jones MD Potassium [Moles/Vol] 3.8 mmol/L Normal 3.7-5.3 [facility] Comment on above: Performed By: #### P RENAT #### [address] [address] Drill Instructor: Diego Bashir MD [address] [place] [address] Drill Instructor: Artem Jones MD Protein [Mass/Vol] 6.5 g/dL Normal 6.4-8.3 [facility] Comment on above: Performed By: #### P RENAT #### [facility] [address] [place] [address] Drill Instructor: Diego Bashir MD [facility] [address] [place] [address] Drill Instructor: Artem Jones MD Sodium [Moles/Vol] 138 mmol/L Normal 135-144 [facility] Comment on above: Performed By: #### P RENAT #### [facility] [address] [place] [address] Drill Instructor: Diego Bashir MD [facility] [address] [place] [address] Drill Instructor: Artem Jones MD Urea nitrogen [Mass/Vol] 4 mg/dL Low 6-20 [facility] Comment on above: Performed By: #### P RENAT #### [facility] [address] [place] [address] Drill Instructor: Diego Bashir MD [facility] [address] [place] [address] [place] [address] Drill Instructor: Artem Jones MD Comprehensive Metabolic Pane [facility] 09-14-2022 Albumin [Mass/Vol] 3.3 g/dL Low 3.5 - 5.2 g/dL [facility] Albumin/Globulin [Mass ratio] 1.0 {ratio} 1.0 - 2.5 [facility] ALP [Catalytic activity/Vol] 124 U/L High 35 - 104 U/L [facility] ALT [Catalytic activity/Vol] 7 U/L 5 - 33 U/L [facility] Anion gap [Moles/Vol] 11 mmol/L 9 - 17 mmol/L [facility] AST [Catalytic activity/Vol] 12 U/L NINF - 32 U/L [facility] Bilirubin [Mass/Vol] 0.2 mg/dL Low 0.3 - 1.2 mg/dL [facility] Calcium [Mass/Vol] 9.4 mg/dL 8.6 - 10.4 mg/dL [facility] Chloride [Moles/Vol] 105 mmol/L 98 - 107 mmol/L [facility] CO2 [Moles/Vol] 22 mmol/L 20 - 31 mmol/L [facility] Creatinine [Mass/Vol] 0.5 mg/dL 0.50 - 0.90 mg/dL [facility] GFR/1.73 sq M.predicted MDRD (S/P/Bld) [Vol rate/Area] - PINF [facility] Comment on above: These results are not [...] 108 mg/dL High 70 - 99 mg/dL [facility] Interpretation and review of laboratory results Abnormal [facility] Potassium [Moles/Vol] 3.8 mmol/L 3.7 - 5.3 mmol/L [facility] Protein [Mass/Vol] 6.5 g/dL 6.4 - 8.3 g/dL [facility] Sodium [Moles/Vol] 138 mmol/L 135 - 144 mmol/L [facility] Urea nitrogen [Mass/Vol] 4 mg/dL Low 6 - 20 mg/dL [facility] Urea nitrogen/Creatinine (Bld) [Mass ratio] 8 Low 9 - 20 [facility] Protein / Creatinine Ratio, Urineon 09-14-2022 Creatinine, Ur 110.6 mg/dL 28.0 - 217.0 mg/dL [facility] Protein (U) [Mass/Vol] 13 mg/dL [facility] Comment on above: No normal range esta blished. Urine Total Protein Creatinine Ratio 0.12 0.00 - 0.20 [facility] [employer] Protein,Tot,[place] 2022 Creatinine [Mass/Vol] 110.6 mg/dL Normal 28.0-217.0 [facility] Comment on above: Performed By: #### U RTPRT #### [facility] [address] [place], [place] [phone] Drill Instructor: Diego Bashir MD Tot Prot. Conc. 13 mg/dL Normal [facility] Comment on above: Result Comment: No n ormal range established. Performed By: #### U RTPRT #### [facility] [address] [place], [place] [phone] Drill Instructor: Diego Bashir MD TP/Cre Ratio 0.12 Normal 0.00-0.20 [facility] Comment on above: Performed By: #### U RTPRT #### [facility] [address] [place], [place] [phone] Drill Instructor: Diego Bashir MD US OB FOLLOW UP TRANSABDOMIN AL APPROACHon 09-12-2022 US OB FOLLOW UP TRANSABDOMINAL APPROACH Growth Ultrasound ? Viable 35 week, 5 day SIUP EFW= 65% AC>HC Vertex Anterior placenta ELEONORA= 12.8 cm Interpreted by: Arin Blake DO Signed by: Arin Blake DO 09/12/22 Final result Normal [facility] US OB FOLLOW UP TRANSABDOMIN AL APPROACHon 08-29-2022 US OB FOLLOW UP TRANSABDOMINAL APPROACH Growth Ultrasound ? Viable 31 week, 4 day SIUP EFW= 53% Vertex Anterior placenta ELEONORA= 11.5 cm Cx length= 4.1 cm ? Interpreted by: Arin Blake DO Signed by: Arin Blake DO 08/29/22 Final result Normal [facility] CBC with Auto Differentialon 08-25-2022 Absolute Eos # 0.11 [facility] [employer] Absolute Immature Granulocyte 0.10 [facility] Absolute Lymph # 2.10 [facility] Absolute Labette # 0.52 [facility] Basophils (Bld) [#/Vol] 0.04 10*3/uL [facility] Basophils/100 WBC (Bld) 0 % 0 - 2 % [facility] Eosinophils/100 WBC (Bld) 1 % 1 - 4 % [facility] Hematocrit (Bld) [Volume fraction] 33.1 % Low 36.3 - 47.1 % [facility] Hemoglobin (Bld) [Mass/Vol] 10.5 g/dL Low 11.9 - 15.1 g/dL [facility] Immature granulocytes/100 WBC (Bld) 1 % High 0 [facility] Interpretation and review of laboratory results Abnormal [facility] Lymphocytes/100 WBC (Bld) 23 % Low 24 - 43 % [facility] MCH (RBC) [Entitic mass] 25.9 pg 25.2 - 33.5 pg [facility] MCHC (RBC) [Mass/Vol] 31.7 g/dL 28.4 - 34.8 g/dL [facility] MCV (RBC) [Entitic vol] 81.7 fL Low 82.6 - 102.9 fL [facility] Monocytes/100 WBC (Bld) 6 % 3 - 12 % [facility] NRBC Automated 0.0 0.0 per 100 WBC [facility] Platelet distribution width (Bld) [Ratio] 14.4 % 11.8 - 14.4 % [facility] Platelet mean volume (Bld) [Entitic vol] 9.1 fL 8.1 - 13.5 fL [facility] Platelets (Bld) [#/Vol] 301 10*3/uL [facility] RBC (Bld) [#/Vol] 4.05 10*6/uL 3.95 - 5.11 m/uL [facility] RBC (Bld) [#/Vol] MICROCYTOSIS PRESENT [facility] Segmented neutrophils/100 WBC (Bld) 69 % High 36 - 65 % [facility] Segs Absolute 6.28 [facility] WBC (Bld) [#/Vol] 9.2 10*3/uL [facility] CBC with Diffon 08-25-2022 Abs. Basophil 0.04 k/uL Normal 0.00-0.20 [facility] Comment on above: Performed By: #### C DP, GLUSC #### [address] [address] Drill Instructor: Diego Bashir MD Abs.Imm.Granulocyte 0.10 k/uL Normal 0.00-0.30 [facility] Comment on above: Performed By: #### C DP, GLUSC #### [address] [address] Drill Instructor: Diego Bashir MD Abs.Neutrophil (Seg) 6.28 k/uL Normal 1.50-8.10 [facility] Comment on above: Performed By: #### C DP, GLUSC #### [address] [address] Drill Instructor: Diego Bashir MD Basophils/100 WBC (Bld) 0 % Normal 0-2 [facility] Comment on above: Performed By: #### C DP, GLUSC #### [address] [address] Drill Instructor: Diego Bashir MD Eosinophils (Bld) [#/Vol] 0.11 10*3/uL Normal 0.00-0.44 [facility] Comment on above: Performed By: #### C DP, GLUSC #### [address] [address] Drill Instructor: Diego Bashir MD Eosinophils/100 WBC (Bld) 1 % Normal 1-4 [facility] Comment on above: Performed By: #### C DP, GLUSC #### [address] [address] Drill Instructor: Diego Bashir MD Erythrocyte distribution width (RBC) [Ratio] 14.4 % Normal 11.8-14.4 [facility] Comment on above: Performed By: #### C DP, GLUSC #### [address] [address] Drill Instructor: Diego Bashir MD Hematocrit (Bld) [Volume fraction] 33.1 % Low 36.3-47.1 [facility] Comment on above: Performed By: #### C DP, GLUSC #### [address] [address] Drill Instructor: Diego Bashir MD Hemoglobin (Bld) [Mass/Vol] 10.5 g/dL Low 11.9-15.1 [facility] Comment on above: Performed By: #### C DP, GLUSC #### [address] [address] Drill Instructor: Diego Bashir MD Immature granulocytes/100 WBC (Bld) 1 % High 0 [facility] Comment on above: Performed By: #### C DP, GLUSC #### [address] [address] Drill Instructor: Diego Bashir MD Lymphocytes (Bld) [#/Vol] 2.10 10*3/uL Normal 1.10-3.70 [facility] Comment on above: Performed By: #### C DP, GLUSC #### [address] [address] Drill Instructor: Diego Bashir MD Lymphocytes/100 WBC (Bld) 23 % Low 24-43 [facility] Comment on above: Performed By: #### C DP, GLUSC #### [address] [address] Drill Instructor: Diego Bashir MD MCH (RBC) [Entitic mass] 25.9 pg Normal 25.2-33.5 [facility] Comment on above: Performed By: #### C DP, GLUSC #### [address] [address] Drill Instructor: Diego Bashir MD MCHC (RBC) [Mass/Vol] 31.7 g/dL Normal 28.4-34.8 [facility] Comment on above: Performed By: #### C DP, GLUSC #### [address] [address] Drill Instructor: Diego Bashir MD MCV (RBC) [Entitic vol] 81.7 fL Low 82.6-102.9 [facility] Comment on above: Performed By: #### C DP, GLUSC #### [place] [address] Drill Instructor: Diego Bashir MD Monocytes (Bld) [#/Vol] 0.52 10*3/uL Normal 0.10-1.20 [facility] Comment on above: Performed By: #### C DP, GLUSC #### [address] [address] Drill Instructor: Diego Bashir MD Monocytes/100 WBC (Bld) 6 % Normal 3-12 [facility] Comment on above: Performed By: #### C DP, GLUSC #### [place] [address] Drill Instructor: Diego Bashir MD Neutrophil (Seg) 69 % High 36-65 [facility] Comment on above: Performed By: #### C DP, GLUSC #### [address] [address] Drill Instructor: Diego Bashir MD NRBC Automated 0.0 per 100 WBC Normal 0.0 [facility] Comment on above: Performed By: #### C DP, GLUSC #### [address] [place] [address] Drill Instructor: Diego Bashir MD Platelet mean volume (Bld) [Entitic vol] 9.1 fL Normal 8.1-13.5 [facility] Comment on above: Performed By: #### C DP, GLUSC #### [address] [address] Drill Instructor: Diego Bashir MD Platelets (Bld) [#/Vol] 301 10*3/uL Normal 138-453 [facility] Comment on above: Performed By: #### C DP, GLUSC #### [address] [address] Drill Instructor: Diego Bashir MD RBC (Bld) [#/Vol] 4.05 10*6/uL Normal 3.95-5.11 [facility] Comment on above: Performed By: #### C DP, GLUSC #### [address] [address] Drill Instructor: Diego Bashir MD RBC morphology finding Nom (Bld) MICROCYTOSIS PRESENT Normal [facility] Comment on above: Performed By: #### C DP, GLUSC #### [address] [address] Drill Instructor: Diego Bashir MD WBC (Bld) [#/Vol] 9.2 10*3/uL Normal 3.5-11.3 [facility] Comment on above: Performed By: #### C DP, GLUSC #### [address] [address] Drill Instructor: Diego Bashir MD Glucose [place] 50gon 2022 Glucose [Mass/Vol] 142 mg/dL High 70-135 [facility] Comment on above: Performed By: #### C DP, GLUSC #### [address] [address] Drill Instructor: Diego Bashir MD Glu Administered via Glucola Normal [facility] Comment on above: Performed By: #### C DP, GLUSC #### [facility] [address] [place] [address] Drill Instructor: Diego Bashir MD Glucose tolerance, 1 houron 08-25-2022 GLU ADMN Glucola [facility] Glucose tolerance screen 50g 142 mg/dL High 70 - 135 mg/dL [facility] Interpretation and review of laboratory results Abnormal [facility] Echo 2D w doppler w color co mpleteon 08-16-2022 [facility] Transthoracic Echocardiography Report (TTE) Patient Name KARMEN Date of Study 08/16/2022 FABIEN Ovalle Date of 2000 Gender Female Age 21 year(s) Race Room Number Height: 62 inch, 157.48 cm Corporate ID [id number] Weight: 197 pounds, 89.4 kg # Patient Acct [id number] BSA: 1.9 m^2 BMI: 36.03 # kg/m^2 MR # [id number] [employer]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 Procedure Date Date: 08/16/2022 Start: 08:31 AM Study Location: [facility] Indications:[place] edness. History / Tech. 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 Procedure Date Date: 08/16/2022 Start: 08:31 AM Study Location: [facility] Indications:Ruben coles. History / Tech. Comments: Dx: [...] Calculations: LVIDd:4.97 cm(3.7 - 5.6 cm) Diastolic Volume:95.13606 ml LVIDs:3.11 cm(2.2 - 4.0 cm) Systolic [...] Wall E' velocity:0.13 m/s Lateral Wall E/E':5.26 [facility] Work Phone: Echo 2D w doppler w color co mpleteOrdered By: Jose A Chandler on 08-16-2022 [facility] Work Phone: Urinalysison 08-02-2022 Bilirubin Urine Negative NEGATIVE [facility] Color, UA Yellow Yellow [facility] Glucose, Ur Negative NEGATIVE [facility] Interpretation and review of laboratory results Abnormal [facility] Ketones Ql (U) Negative NEGATIVE [facility] Leukocyte esterase Test strip Ql (U) Negative NEGATIVE [facility] Nitrite, Urine Negative NEGATIVE [facility] pH, UA 7.0 5.0 - 9.0 [facility] Protein, UA Negative NEGATIVE [facility] Specific [place], UA Low 1.010 - 1.020 B [facility] Turbidity UA Clear Clear [facility] Urine Hgb Negative NEGATIVE [facility] Urobilinogen, Urine Normal Normal [facility] Urinalysis, Routineon 2022 Bilirubin, SemiQt,Ur Negative Normal NEG [facility] Comment on above: Performed By: #### U A #### [facility] [address] [place] [address] [place] [address] Drill Instructor: Artem Jones MD Blood, Urine Negative Normal NEG [facility] Comment on above: Performed By: #### U A #### [facility] [address] [place] [address] Dr. [place], [place] [id number] Drill Instructor: Artem Jones MD Clarity (U) Clear Normal CLEAR [facility] Comment on above: Performed By: #### U A #### [facility] [facility] [address] [place] [address] Drill Instructor: Artem Jones MD Color (U) Yellow Normal YEL [facility] Comment on above: Performed By: #### U A #### [facility] [address] [place] [address] [place] [address] Drill Instructor: Artem Jones MD Glucose Ql (U) Negative Normal NEG [facility] Comment on above: Performed By: #### U A #### [facility] [address] [place] [address] Dr. [place], [place] [phone] Drill Instructor: Artem Jones MD Ketones Ql (U) Negative Normal NEG [facility] Comment on above: Performed By: #### U A #### [facility] [address] [place] [address] Dr. [place], [facility] Drill Instructor: Artem Jones MD Leukocyte esterase Test strip Ql (U) Negative Normal NEG [facility] Comment on above: Performed By: #### U A #### [facility] [address] [place] [address] Dr. [place] [phone] Drill Instructor: Artem Jones MD Nitrite,Ur Negative Normal NEG [facility] Comment on above: Performed By: #### U A #### [facility] [address] [place] [address] Dr. [place], [facility] Drill Instructor: Artem Jones MD PH,Ur 7.0 Normal 5.0-9.0 [facility] Comment on above: Performed By: #### U A #### [address] [place], [facility] Drill Instructor: Artem Jones MD Protein Ql (U) Negative Normal NEG [facility] Comment on above: Performed By: #### U A #### [facility] [address] [place] [address] Dr. [place], [facility] Drill Instructor: Artem Jones MD Spec. [place],Ur <1.005 Low 1.010-1.020 [facility] Comment on above: Performed By: #### U A #### [facility] [address] [place] [address] [place] [address] Drill Instructor: Artem Jones MD Urobilinogen,Ur Normal Normal NORM [facility] Comment on above: Performed By: #### U A #### [facility] [place] [address] Drill Instructor: Artem Jones MD Cult,Urineon 02-23-2022 Cult,Urine Specimen Description .CLEAN CATCH URINE Culture KLEBSIELLA PNEUMONIAE >[id number] CFU/ML Report Status FINAL 02/23/2022 SUSCEPTIBILITY Organism [...] <=20 SUSCEPTIBLE Piperacillin/Tazobact am <=4 SUSCEPTIBLE Susceptible [facility] Comment on above: Performed By: #### U RC #### [address] [id number] Drill Instructor: Diego Bashir MD [address] [place] [address] Drill Instructor: Artem Jones MD Chlamydia/GC DNA, Uron 02-22 Chlamydia Probe, Ur Negative Normal NEG [facility] Comment on above: Result Comment: [...] target. Performed By: #### U CGP #### [facility] [address] [place] [address] Drill Instructor: Diego Bashir MD Gonorrhea Probe, Ur Negative Normal NEG [facility] Comment on above: Result Comment: [...] target. Performed By: #### U CGP #### [address] [address] Drill Instructor: Diego Bashir MD HIV Ag/Abon 02-22-2022 HIV Ag/Ab Non-Reactive Normal [facility] Comment on above: Result Comment: No l aboratory evidence of HIV infection. If acute HIV infection is suspected, consider testing for HIV-1 RNA. Performed By: #### H IVCMB, AHCV #### [address] [address] Drill Instructor: Diego Bashir MD Hep C Abon 02-22-2022 Hep C Ab Non-Reactive Normal [facility] Comment on above: Result Comment: The hepatitis [...] Performed By: #### H IVCMB, AHCV #### [address] [address] Drill Instructor: Diego Bashir MD Profileon 2 T.pallidum Ab Screen Non-Reactive Normal [facility] Comment on above: Result Comment: T. pallidum antibodies are not detected. There is no serological evidence of infection with T. pallidum (early primary syphilis cannot be excluded). Retest in 2-4 weeks if syphilis is clinically suspect. Performed By: #### P RENAT #### [address] [address] Drill Instructor: Diego Bashir MD [facility] [address] [place] [address] [place] [address] Drill Instructor: Artem Jones MD Hep B Surf Ag Non-Reactive Normal NR [facility] Comment on above: Performed By: #### P RENAT #### [facility] [address] [place], [place] [phone] Drill Instructor: Diego Bashir MD [facility] [address] [place] [address] [place] [address] Drill Instructor: Artem Jones MD Rubella Ab, IgG 67.8 IU/mL Normal [facility] Comment on above: Result Comment: REFERENCE RANGE: <5.0 NON-REACTIVE (non-immune) 5.0 TO 9.9 EQUIVOCAL >=10.0 REACTIVE (immune) Performed By: #### P RENAT #### [place] [address] [place], [place] [id number] Drill Instructor: Diego Bashir MD [facility] [address] [place], [place] [address] [address] Drill Instructor: Artem Jones MD Profile Ion 022 Absolute Eos # 0.10 [facility] Absolute Immature Granulocyte 0.05 [facility] Absolute Lymph # 2.73 [facility] Absolute Labette # 0.69 [facility] Basophils (Bld) [#/Vol] 0.07 10*3/uL [facility] Basophils/100 WBC (Bld) 1 % 0 - 2 % [facility] Eosinophils/100 WBC (Bld) 1 % 1 - 4 % [facility] Hematocrit (Bld) [Volume fraction] 37.3 % 36.3 - 47.1 % [facility] Hemoglobin (Bld) [Mass/Vol] 12.2 g/dL 11.9 - 15.1 g/dL [facility] Hepatitis B Surface Ag Non-Reactive NONREACTIVE [facility] Immature granulocytes/100 WBC (Bld) 1 % High 0 [facility] Interpretation and review of laboratory results Abnormal [facility] Lymphocytes/100 WBC (Bld) 28 % 24 - 43 % [facility] MCH (RBC) [Entitic mass] 28.0 pg 25.2 - 33.5 pg [facility] MCHC (RBC) [Mass/Vol] 32.7 g/dL 28.4 - 34.8 g/dL [facility] MCV (RBC) [Entitic vol] 85.7 fL 82.6 - 102.9 fL [facility] Monocytes/100 WBC (Bld) 7 % 3 - 12 % [facility] NRBC Automated 0.0 0.0 per 100 WBC [facility] Platelet distribution width (Bld) [Ratio] 12.7 % 11.8 - 14.4 % [facility] Platelet mean volume (Bld) [Entitic vol] 9.3 fL 8.1 - 13.5 fL [facility] Platelets (Bld) [#/Vol] 300 10*3/uL [facility] RBC (Bld) [#/Vol] 4.35 10*6/uL 3.95 - 5.11 m/uL [facility] Rubella virus IgG Ql (S) 67.8 IU/mL [facility] Comment on above: REFERENCE RANGE: <5.0 NON-REACTIVE (non-immune) 5.0 TO 9.9 EQUIVOCAL >=10.0 REACTIVE (immune) Segmented neutrophils/100 WBC (Bld) 62 % 36 - 65 % [facility] Segs Absolute 6.09 [facility] T. pallidum, IgG Non-Reactive NONREACTIVE [facility] Comment on above: T. pallidum antibodies are not detected. There is no serological evidence of infection with T. pallidum (early primary syphilis cannot be excluded). Retest in 2-4 weeks if syphilis is clinically suspect. WBC (Bld) [#/Vol] 9.7 10*3/uL [facility] HIV Screenon 02-21-2022 HIV Ag/Ab Non-Reactive NONREACTIVE [facility] Comment on above: No laboratory eviden ce of HIV infection. If acute HIV infection is suspected, consider testing for HIV-1 RNA. [facility] Hepatitis C Antibodyon 02-21 Hepatitis C Ab Non-Reactive NONREACTIVE [facility] Comment on above: The hepatitis C [...] recommended by ordering HCV RNA by PCR. [facility] TYPE AND SCREENon 0 02-21-2022 ABO/Rh Positive [facility] Profileon 2 Abs. Basophil 0.07 k/uL Normal 0.00-0.20 [facility] Comment on above: Performed By: #### P RENAT #### [address] [address] Drill Instructor: Diego Bashir MD [facility] [address] [place] [address] Dr. [place] [phone] Drill Instructor: Artem Jones MD Abs.Imm.Granulocyte 0.05 k/uL Normal 0.00-0.30 [facility] Comment on above: Performed By: #### P RENAT #### [address] [address] Drill Instructor: Diego Bashir MD [address] [place] [phone] Drill Instructor: Artem Jones MD Abs.Neutrophil (Seg) 6.09 k/uL Normal 1.50-8.10 [facility] Comment on above: Performed By: #### P RENAT #### [address] [address] Drill Instructor: Diego Bashir MD [facility] [address] [place] [address] [place] [address] Drill Instructor: Artem Jones MD Basophils/100 WBC (Bld) 1 % Normal 0-2 [facility] Comment on above: Performed By: #### P RENAT #### [address] [address] Drill Instructor: Diego Bashir MD [address] [place] [phone] Drill Instructor: Artem Jones MD Eosinophils (Bld) [#/Vol] 0.10 10*3/uL Normal 0.00-0.44 [facility] Comment on above: Performed By: #### P RENAT #### [address] [address] Drill Instructor: Diego Bashir MD [address] [place] [phone] Drill Instructor: Artem Jones MD Eosinophils/100 WBC (Bld) 1 % Normal 1-4 [facility] Comment on above: Performed By: #### P RENAT #### [address] [address] Drill Instructor: Diego Bashir MD [address] [place] [phone] Drill Instructor: Artem Jones MD Erythrocyte distribution width (RBC) [Ratio] 12.7 % Normal 11.8-14.4 [facility] Comment on above: Performed By: #### P RENAT #### [address] [address] Drill Instructor: Diego Bashir MD [address] [place] [phone] Drill Instructor: Artem Jones MD Hematocrit (Bld) [Volume fraction] 37.3 % Normal 36.3-47.1 [facility] Comment on above: Performed By: #### P RENAT #### [address] [address] Drill Instructor: Diego Bashir MD [address] [place] [phone] Drill Instructor: Artem Jones MD Hemoglobin (Bld) [Mass/Vol] 12.2 g/dL Normal 11.9-15.1 [facility] Comment on above: Performed By: #### P RENAT #### [address] [place] [address] Drill Instructor: Diego Bashir MD [facility] [address] [place] [address] [place] [address] Drill Instructor: Artem Jones MD Immature granulocytes/100 WBC (Bld) 1 % High 0 [facility] Comment on above: Performed By: #### P RENAT #### [address] [address] Drill Instructor: Diego Bahsir MD [facility] [address] [place] [address] Dr. [place] [phone] Drill Instructor: Artem Jones MD Lymphocytes (Bld) [#/Vol] 2.73 10*3/uL Normal 1.10-3.70 [facility] Comment on above: Performed By: #### P RENAT #### [address] [address] Drill Instructor: Diego Bashir MD [facility] [address] [place] [address] [place] [address] Drill Instructor: Artem Jones MD Lymphocytes/100 WBC (Bld) 28 % Normal 24-43 [facility] Comment on above: Performed By: #### P RENAT #### [address] [address] Drill Instructor: Diego Bashir MD [facility] [address] [place] [address] [place] [address] Drill Instructor: Artem Jones MD MCH (RBC) [Entitic mass] 28.0 pg Normal 25.2-33.5 [facility] Comment on above: Performed By: #### P RENAT #### [address] [address] Drill Instructor: Diego Bashir MD [facility] [address] [place] [address] Dr. [place], [place] [phone] Drill Instructor: Artem Jones MD MCHC (RBC) [Mass/Vol] 32.7 g/dL Normal 28.4-34.8 [facility] Comment on above: Performed By: #### P RENAT #### [address] [address] Drill Instructor: Diego Bashir MD [address] [place] [phone] Drill Instructor: Artem Jones MD MCV (RBC) [Entitic vol] 85.7 fL Normal 82.6-102.9 [facility] Comment on above: Performed By: #### P RENAT #### [address] [address] Drill Instructor: Diego Bashir MD [address] [place] [phone] Drill Instructor: Artem Jones MD Monocytes (Bld) [#/Vol] 0.69 10*3/uL Normal 0.10-1.20 [facility] Comment on above: Performed By: #### P RENAT #### [address] [address] Drill Instructor: Diego Bashir MD [address] [place] [phone] Drill Instructor: Artem Jones MD Monocytes/100 WBC (Bld) 7 % Normal 3-12 [facility] Comment on above: Performed By: #### P RENAT #### [address] [address] Drill Instructor: Diego Bashir MD [address] [place], [place] [phone] Drill Instructor: Artem Jones MD Neutrophil (Seg) 62 % Normal 36-65 [facility] Comment on above: Performed By: #### P RENAT #### [address] [address] Drill Instructor: Diego Bashir MD [facility] [address] [place] [address] [place] [address] Drill Instructor: Artem Jones MD NRBC Automated 0.0 per 100 WBC Normal 0.0 [facility] Comment on above: Performed By: #### P RENAT #### [address] [address] Drill Instructor: Diego Bashir MD [facility] [address] [place] [address] [place] [address] Drill Instructor: Artem Jones MD Platelet mean volume (Bld) [Entitic vol] 9.3 fL Normal 8.1-13.5 [facility] Comment on above: Performed By: #### P RENAT #### [address] [address] Drill Instructor: Diego Bashir MD [facility] [address] [place] [address] [place] [address] Drill Instructor: Artem Jones MD Platelets (Bld) [#/Vol] 300 10*3/uL Normal 138-453 [facility] Comment on above: Performed By: #### P RENAT #### [address] [address] Drill Instructor: Diego Bashir MD [facility] [address] [place] [address] Dr. [place] [phone] Drill Instructor: Artem Jones MD RBC (Bld) [#/Vol] 4.35 10*6/uL Normal 3.95-5.11 [facility] Comment on above: Performed By: #### P RENAT #### [address] [address] Drill Instructor: Diego Bashir MD [facility] [address] [place] [address] Dr. [place], [place] [phone] Drill Instructor: Artem Jones MD WBC (Bld) [#/Vol] 9.7 10*3/uL Normal 3.5-11.3 [facility] Comment on above: Performed By: #### P RENAT #### [address] [address] Drill Instructor: Diego Bashir MD [facility] [address] [place] [address] Dr. [place] [phone] Drill Instructor: Artem Jones MD Type + Scrnon 02-21 Type + Scrn Negative Normal [facility] Comment on above: Performed By: #### P RTYS #### [address] [place], [facility] Drill Instructor: Artem Jones MD Toxicology Scree, Urineon Amphetamine(s),Ur Negative Normal NEG [facility] Comment on above: Performed By: #### U CGP #### [address] [address] Drill Instructor: Diego Bashir MD Barbiturate(s),Ur Negative Normal NEG [facility] Comment on above: Performed By: #### U CGP #### [address] [address] Drill Instructor: Diego Bashir MD Benzodiazepine(s) Negative Normal NEG [facility] Comment on above: Performed By: #### U CGP #### [address] [address] Drill Instructor: Diego Bashir MD Buprenorphrine, Ur Negative Normal NEG [facility] Comment on above: Performed By: #### U CGP #### [address] [id number] Drill Instructor: Diego Bashir MD Cannabinoid(s),Ur Negative Normal NEG [facility] Comment on above: Performed By: #### U CGP #### [facility] [address] [place] [address] Drill Instructor: Diego Bashir MD Cocaine Metabolite Negative Normal [facility] Comment on above: Performed By: #### U CGP #### [facility] [address] [place] [address] Drill Instructor: Diego Bashir MD Methadone Negative Normal [facility] Comment on above: Performed By: #### U CGP #### [address] [address] Drill Instructor: Diego Bashir MD Methamphetamine, Ur Negative Normal [facility] Comment on above: Performed By: #### U CGP #### [address] [address] Drill Instructor: Diego Bashir MD Opiate(s), Ur Negative Normal [facility] Comment on above: Performed By: #### U CGP #### [address] [address] Drill Instructor: Diego Bashir MD Oxycodone, Urine Negative Normal [facility] Comment on above: Performed By: #### U CGP #### [address] [address] Drill Instructor: Diego Bashir MD Phencyclidine, Ur Negative Normal [facility] Comment on above: Performed By: #### U CGP #### [address] [address] Drill Instructor: Diego Bashir MD Propoxyphene,Urine Negative Normal [facility] Comment on above: Performed By: #### U CGP #### [address] [address] Drill Instructor: Diego Bashir MD Tricyclic Antidepressants Negative Normal NEG [facility] Comment on above: Result Comment: Drug screen results are to be used for medical purposes only. All positive results are unconfirmed. Testing for employment or legal uses should be sent to a reference laboratory for confirmation. Performed By: #### U [facility] #### [facility] [address] [place] [address] Drill Instructor: Diego Bashir MD Urine Drug Screen, Chad coelloe 02-21-2022 Amphetamine Screen, Ur Negative NEGATIVE [facility] Barbiturate Screen, Ur Negative NEGATIVE [facility] Benzodiazepine Screen, Urine Negative NEGATIVE [facility] Buprenorphine Urine Negative NEGATIVE [facility] Cannabinoid Scrn, Ur Negative NEGATIVE [facility] Cocaine Metabolite, Urine Negative NEGATIVE [facility] Methadone Screen, Urine Negative NEGATIVE [facility] Methamphetamine, Urine Negative NEGATIVE [facility] Opiates, Urine Negative NEGATIVE [facility] Oxycodone Screen, Ur Negative NEGATIVE [facility] Phencyclidine, Urine Negative NEGATIVE [facility] Propoxyphene, Urine Negative NEGATIVE [facility] Tricyclic Antidepressants, Urine Negative NEGATIVE [facility] Comment on above: Drug screen results are to be used for medical purposes only. All positive results are unconfirmed. Testing for employment or legal uses should be sent to a reference laboratory for confirmation. [facility] TILT TABLE TESTon 01-26-2022 TILT TABLE TEST [address] [id number] TILT TABLE TEST PATIENT NAME: FABIEN PERAZA : 2000 MED REC NO: [id number] ROOM: ACCOUNT NO: [id number] ADMIT DATE: 01/25/2022 PROVIDER: Jade Soto MD Cardiovascular Diagnostics Department DATE OF PROCEDURE: 01/25/2022 ORDERING PROVIDER: Nick Quiñones CNP PRIMARY CARE PROVIDER: Nick Quñiones CNP INTERPRETING PHYSICIAN: Jade Soto MD Diagnosis: [...] up with their primary care physician and/or gift manager as previously scheduled. STUDY CONCLUSIONS: Abnormal head [...] MD CHASITY/DARCY_JEMMA Doc#: Unknown CC: Nick Quiñones, [employer] INVESTIGATOR-RACKING MACHINE OPERATOR [facility] Basic Metabolic Panelon 06-3 Anion gap [Moles/Vol] 11 mmol/L 9 - 17 mmol/L [facility] Calcium [Mass/Vol] 9.6 mg/dL 8.6 - 10.4 mg/dL [facility] Chloride [Moles/Vol] 104 mmol/L 98 - 107 mmol/L [facility] CO2 [Moles/Vol] 24 mmol/L 20 - 31 mmol/L [facility] Creatinine [Mass/Vol] 0.74 mg/dL 0.50 - 0.90 mg/dL [facility] GFR >60 >60 mL/min [facility] GFR Non- >60 >60 mL/min [facility] Glucose [Mass/Vol] 91 mg/dL 70 - 99 mg/dL [facility] Potassium [Moles/Vol] 4.0 mmol/L 3.7 - 5.3 mmol/L [facility] Sodium [Moles/Vol] 139 mmol/L 135 - 144 mmol/L [facility] Urea nitrogen (BldV) [Mass/Vol] 14 mg/dL 6 - 20 mg/dL [facility] Urea nitrogen/Creatinine (Bld) [Mass ratio] 19 [facility] Basic Metabolic Profon 01-13 (cont.) Normal [facility] Comment on above: Result Comment: Aver age GFR for 20-29 years old: 116 mL/min/1.73sq m Chronic Kidney Disease: <60 mL/min/1.73sq m Kidney failure: <15 mL/min/1.73sq m eGFR calculated using average adult body mass. Additional eGFR calculator available at: http://www.Digigraph.me.Sonicbids/multiple_crcl_2011.htm Performed By: #### B RIC, CBC #### [facility] [address] [place] [address] Drill Instructor: Artem Jones MD Anion gap [Moles/Vol] 11 mmol/L Normal -17 [facility] Comment on above: Performed By: #### B RIC, CBC #### [facility] [address] [place] [address] Drill Instructor: Artem Jones MD BUN/CRE Ratio 19 Normal 9-20 [facility] Comment on above: Performed By: #### B MP, CBC #### [facility] [address] [place] [address] Drill Instructor: Artem Jones MD Calcium [Mass/Vol] 9.6 mg/dL Normal 8.6-10.4 [facility] Comment on above: Performed By: #### B MP, CBC #### [facility] [address] [place], [place] [phone] Drill Instructor: Artem Jones MD Chloride [Moles/Vol] 104 mmol/L Normal 98-107 [facility] Comment on above: Performed By: #### B MP, CBC #### [facility] [address] [place], [place] [id number] Drill Instructor: Artem Jones MD CO2 [Moles/Vol] 24 mmol/L Normal 20-31 [facility] Comment on above: Performed By: #### B MP, CBC #### [facility] [address] [place], [place] [id number] Drill Instructor: Artem Jones MD Creatinine [Mass/Vol] 0.74 mg/dL Normal 0.50-0.90 [facility] Comment on above: Performed By: #### B MP, CBC #### [facility] [address] [place], [place] [phone] Drill Instructor: Artem Jones MD GFR, Amer >60 Normal >60 [facility] Comment on above: Performed By: #### B MP, CBC #### [facility] [address] [place], [place] [phone] Drill Instructor: Artem Jones MD GFR,non Amer >60 Normal >60 [facility] Comment on above: Performed By: #### B MP, CBC #### [facility] [address] [place] [address] Drill Instructor: Artem Jones MD Glucose [Mass/Vol] 91 mg/dL Normal 70-99 [facility] Comment on above: Performed By: #### B MP, CBC #### [facility] [address] [place] [address] Drill Instructor: Artem Jones MD Potassium [Moles/Vol] 4.0 mmol/L Normal 3.7-5.3 [facility] Comment on above: Performed By: #### B MP, CBC #### [facility] [address] [place] [address] Drill Instructor: Artem Jones MD Sodium [Moles/Vol] 139 mmol/L Normal 135-144 [facility] Comment on above: Performed By: #### B RIC, CBC #### [facility] [address] [place] [address] Drill Instructor: Artem Jones MD Staging: Normal [facility] Comment on above: Result Comment: Stag e 1: Some kidney damage normal GFR Stage 2: Mild kidney damage GFR 60-89 Stage 3: Moderate kidney damage GFR 30-59 Stage 4: Severe kidney damage GFR 15-29 Stage 5: Severe kidney damage GFR <15 ESRD - chronic treatment by dialysis or transplant Performed By: #### B MP, CBC #### [address] [place] [address] Drill Instructor: Artem Jones MD Urea nitrogen [Mass/Vol] 14 mg/dL Normal 6-20 [facility] Comment on above: Performed By: #### B MP, CBC #### [facility] [address] [place] [address] Drill Instructor: Artem Jones MD CBCon 01-13-2022 Erythrocyte distribution width (RBC) [Ratio] 12.4 % Normal 11.8-14.4 [facility] Comment on above: Performed By: #### B RIC, CBC #### [facility] [address] [place] [address] Drill Instructor: Artem Jones MD Hematocrit (Bld) [Volume fraction] 39.7 % Normal 36.3-47.1 [facility] Comment on above: Performed By: #### B MP, CBC #### [facility] [address] [place], [place] [id number] Drill Instructor: Artem Jones MD Hemoglobin (Bld) [Mass/Vol] 13.0 g/dL Normal 11.9-15.1 [facility] Comment on above: Performed By: #### B MP, CBC #### [address] [place] [address] Drill Instructor: Artem Jones MD MCH (RBC) [Entitic mass] 27.7 pg Normal 25.2-33.5 [facility] Comment on above: Performed By: #### B MP, CBC #### [address] [place] [id number] Drill Instructor: Artem Jones MD MCHC (RBC) [Mass/Vol] 32.7 g/dL Normal 28.4-34.8 [facility] Comment on above: Performed By: #### B MP, CBC #### [address] [place] [address] Drill Instructor: Artem Jones MD MCV (RBC) [Entitic vol] 84.6 fL Normal 82.6-102.9 [facility] Comment on above: Performed By: #### B MP, CBC #### [address] [place] [address] Drill Instructor: Artem Jones MD NRBC Automated 0.0 per 100 WBC Normal 0.0 [facility] Comment on above: Performed By: #### B MP, CBC #### [facility] [address] [place] [address] Drill Instructor: Artem Jones MD Platelet mean volume (Bld) [Entitic vol] 9.1 fL Normal 8.1-13.5 [facility] Comment on above: Performed By: #### B MP, CBC #### [facility] [address] [place] [address] Drill Instructor: Artem Jones MD Platelets (Bld) [#/Vol] 275 10*3/uL Normal 138-453 [facility] Comment on above: Performed By: #### B MP, CBC #### [facility] [address] [place] [address] Drill Instructor: Artem Jones MD RBC (Bld) [#/Vol] 4.69 10*6/uL Normal 3.95-5.11 [facility] Comment on above: Performed By: #### B MP, CBC #### [facility] [address] [place], [facility] Drill Instructor: Artem Jones MD WBC (Bld) [#/Vol] 8.2 10*3/uL Normal 3.5-11.3 [facility] Comment on above: Performed By: #### B MP, CBC #### [facility] [address] [place] [address] Drill Instructor: Artem Jones MD Hematocrit (Bld) [Volume fraction] 39.7 % 36.3 - 47.1 % [facility] Hemoglobin (Bld) [Mass/Vol] 13.0 g/dL 11.9 - 15.1 g/dL [facility] MCH (RBC) [Entitic mass] 27.7 pg 25.2 - 33.5 pg [facility] MCHC (RBC) [Mass/Vol] 32.7 g/dL 28.4 - 34.8 g/dL [facility] MCV (RBC) [Entitic vol] 84.6 fL 82.6 - 102.9 fL [facility] NRBC Automated 0.0 0.0 per 100 WBC [facility] Platelet distribution width (Bld) [Ratio] 12.4 % 11.8 - 14.4 % [facility] Platelet mean volume (Bld) [Entitic vol] 9.1 fL 8.1 - 13.5 fL [facility] Platelets (Bld) [#/Vol] 275 10*3/uL [facility] RBC (Bld) [#/Vol] 4.69 10*6/uL 3.95 - 5.11 m/uL [facility] WBC (Bld) [#/Vol] 8.2 10*3/uL [facility] Laboratory - Chemistry and C hemistry - challengeon 01-13-2022 GFR/1.73 sq M.predicted MDRD (S/P/Bld) [Vol rate/Area] [facility] Comment on above: Average GFR for 20-2 9 years old: 116 mL/min/1.73sq m Chronic Kidney Disease: <60 mL/min/1.73sq m Kidney failure: <15 mL/min/1.73sq m eGFR calculated using average adult body mass. Additional eGFR calculator available at: http://www.Digigraph.me.Sonicbids/multiple_crcl_2012.htm Stage 1: Some kidney damage normal GFR Stage 2: Mild kidney damage GFR 60-89 Stage 3: Moderate kidney damage GFR 30-59 Stage 4: Severe kidney damage GFR 15-29 Stage 5: Severe kidney damage GFR <15 ESRD - chronic treatment by dialysis or transplant PROGRESSon 10-12-2017 [facility] NOTES Normal [facility] PROGRESSon 09-21-2017 [facility] NOTES Normal [facility] Vital Signs Date Time Vital Sign Value Performing Clinician Faci lity 09-26-2022 08:16-0400 Body temperature 98.1 [degF] Zak Bejarano MD Work Phone: [facility] 09-26-2022 08:16-0400 Diastolic blood pressure 80 mm[Hg] Zak Bejarano MD Work Phone: [facility] 09-26-2022 08:16-0400 Heart rate 81 /min Zak Bejarano MD Work Phone: [facility] 09-26-2022 08:16-0400 Respiratory rate 16 /min Zak Bejarano MD Work Phone: [facility] 09-26-2022 08:16-0400 Systolic blood pressure 130 mm[Hg] Zak Bejarano MD Work Phone: [facility] 09-25-2022 08:04-0400 SaO2% (BldA) [Mass fraction] 99 % Zak Bejarano MD Work Phone: [facility] 08-02-2022 18:01-0500 Body height 157.5 cm Pete Sol APRN - CNAlison Work Phone: [facility] 08-02-2022 18:01-0500 Body mass index (BMI) [Ratio] 35.85 kg/m2 Pete Sol APRN - CNAlison Work Phone: [facility] 08-02-2022 18:01-0500 Body weight 88.91 kg Pete Holt CNM Work Phone: [facility] 08-02-2022 17:37-0500 Diastolic blood pressure 70 mm[Hg] Pete Sol APRN - CURTIS Work Phone: [facility] 08-02-2022 17:37-0500 Heart rate 93 /min Pete Holt CNM Work Phone: [facility] 08-02-2022 17:37-0500 Respiratory rate 18 /min Pete Sol APRN - CNAlison Work Phone: [employer] 08-02-2022 17:37-0500 Systolic blood pressure 118 mm[Hg] Pete Holt CNAlison Work Phone: [facility] 08-02-2022 17:17-0500 Body temperature 97.9 [degF] Ptee Holt CNAlison Work Phone: [employer] 01-14-2020 10:40-0400 BMI (Body Mass Index) 30.2 kg/m2 [facility] Work Phone: 01-14-2020 10:40-0400 Body weight 74.84 kg [facility] Work Phone: 01-14-2020 10:40-0400 BSA (Body Surface Area) 1.76 m2 [facility] Work Phone: 01-14-2020 10:40-0400 Height 157.48 cm [facility] Work Phone: Encounters Encounter Date Encounter Type Care Provider Facility Start: 01-04-2024 End: 01-04-2024 ambulatory MELO CAROLE Not Available Start: 12-21-2023 End: 12-21-2023 ambulatory MELO CAROLE Not Available Start: 12-07-2023 End: 12-07-2023 ambulatory REINALDO MEENAKSHI Not Available Start: 11-23-2023 End: 11-23-2023 ambulatory MELO CAROLE Not Available Start: 11-08-2023 End: 11-08-2023 ambulatory MELO CAROLE Not Available Start: 10-11-2023 End: 10-11-2023 ambulatory REINALOD MEENAKSHI Not Available Start: 09-07-2023 End: 09-07-2023 ambulatory MELO CAROLE Not Available Start: 08-09-2023 End: 08-09-2023 ambulatory REINALDO MEENAKSHI Not Available Start: 07-06-2023 End: 07-06-2023 ambulatory MELO CAROLE Not Available Start: 06-07-2023 End: 06-07-2023 ambulatory REINALDO MEENAKSHI Not Available Start: 09-24-2022 End: 09-26-2022 Evaluation and management of inpatient Zak Bejarano MD Work Phone: [facility] Labor and Delivery Start: 09-14-2022 End: 09-15-2022 ambulatory NICK [facility] Start: 09-14-2022 End: 09-14-2022 Subsequent hospital visit by physician Nick Quiñones FBI INVESTIGATOR - RACKING MACHINE OPERATOR Work Phone: [facility] Comment on above: 36 weeks gestation o f Start: 09-14-2022 End: 09-14-2022 [facility] [place] [facility] Start: 09-14-2022 End: 09-14-2022 Subsequent hospital visit by physician Nick Quiñones APRN - LIONEL Work Phone: [facility] Laboratory Comment on above: Elevated blood press ure affecting , antepartum Start: 09-08-2022 End: 09-08-2022 ambulatory ADITYA [facility] Start: 08-25-2022 End: 08-26-2022 ambulatory JACQUI RUSSELL [facility] Start: 08-25-2022 End: 08-25-2022 Subsequent hospital visit by physician Nick Quiñones APRN - LIONEL Work Phone: [facility] [employer] INSPECTION AND REPAIR MANAGER Comment on above: Encounter for superv ision of normal first in second trimester Start: 08-16-2022 End: 08-17-2022 ambulatory [facility] Start: 08-16-2022 End: 08-16-2022 Subsequent hospital visit by physician [facility] Echo Room [facility] Echocardiography Comment on above: Light headedness; POTS (postural orthostatic tachycardia syndrome); Abnormal tilt table test Light headedness; POTS (postural orthostatic tachycardia syndrome); Abnormal tilt table test; 29 weeks gestation of ; Chest pain, unspecified type Start: 08-02-2022 End: 08-02-2022 ambulatory [facility] Start: 08-02-2022 End: 08-02-2022 Subsequent hospital visit by physician Pete Sol APRN - CURTIS Work Phone: [facility] Labor and Delivery Start: 02-21-2022 End: 02-22-2022 ambulatory [facility] Start: 02-21-2022 End: 02-21-2022 Subsequent hospital visit by physician Nick Quiñones APRN - LIONEL Work Phone: [facility] Laboratory Comment on above: Encounter for superv ision of normal , antepartum, unspecified ; Positive urine test Start: 01-25-2022 End: 01-26-2022 ambulatory NICK Moore [facility] Start: 01-25-2022 End: 01-25-2022 Subsequent hospital visit by physician [facility] Military Lawyer [facility] EKG Comment on above: Heart palpitations Start: 01-13-2022 End: 01-14-2022 ambulatory NICK Moore [facility] Start: 01-13-2022 End: 01-13-2022 Subsequent hospital visit by physician Nick Quiñones FBI INVESTIGATOR - RACKING MACHINE OPERATOR Work Phone: [facility] Laboratory Comment on above: Heart palpitations Start: 03-15-2021 End: 03-15-2021 Patient encounter procedure Cari Toribio MD [facility] Laboratory Start: 03-15-2021 End: 03-15-2021 Subsequent hospital visit by physician Cari Toribio MD [facility] Laboratory Comment on above: Women's annual routi ne gynecological examination Start: 01-14-2020 End: 01-14-2020 Patient encounter procedure Meri Silva Work Phone: [facility] Work Phone: Start: 01-14-2020 End: 01-14-2020 Telemedicine consultation with patient Radha Cuevas Work Phone: [facility] Work Phone: Start: 10-12-2017 [facility] Start: 09-21-2017 [facility] Procedures Date Procedure Procedure Detail Performing Clinician [...] End: 09-14-2022 Comprehensive metabolic panel Elizabeth Galvez FBI INVESTIGATOR - [facility] Work Phone: Start: 08-25-[address] gtt 3 specimens Jacqui Russell FBI INVESTIGATOR - CN Work Phone: Start: 08-16-2022 Echo tthrc r-t 2d w/wom-mode compl spec&colr d Jade Soto MD Work Phone: Start: 08-02-2022 Urnls dip stick/tabl et rgnt auto w/o microscopy Pete Guillenbhavik Sol FBI INVESTIGATOR - [facility] Work Phone: Start: 02-21-2022 Antibody screen Nick Stephanie FBI INVESTIGATOR [employer] [facility] Work Phone: Start: 02-21-2022 End: 02-21-2022 Antibody hiv-1&hiv-2 single result Pete Jacob Sol FBI INVESTIGATOR - [facility] Work Phone: Start: 02-21-2022 Drug screen, qualitate/multi Pete Jacob Ebenezer FBI INVESTIGATOR - CN Work Phone: Start: 01-13-2022 Basic metabolic pane l calcium total Nick Quiñones FBI INVESTIGATOR - [facility] Work Phone: Start: 03-15-2021 Microscopic observat ion [Identifier] in Cervix by Cyto stain Nick Stephanie FBI INVESTIGATOR - [facility] Work Phone: Start: 01-14-2020 MIGRAINE HEADACHE Gertrude e Faith NEGATED: Highlighted row has not occurred!Start: 01-14-2020 reported prior surgical / procedural history Radha Cuevas Plan of Treatment Date Care Activity Detail Author Start: 03-15-2024 Screening for malignant neoplasm of cervix Pap smear [facility] [employer] [facility] Start: 05-09-2023 Depression Screen Depression Screen [facility] Start: 05-09-2023 Influenza vaccination [facility] (#1[facility] Comment on above: Postponed from 02/14/2022 (Patient Refus ed) Start: 02-21-2023 Screening for Chlamydia trachomatis Chlamydia/GC screen [facility] Start: 02-03-2023 Depression Screen Depression Screen [facility] Start: 01-13-2023 COVID-19 Vaccine (#1) COVID-19 Vaccine (#1) [facility] [employer] [facility] Comment on above: Postponed from 05/17/2000 (Patient Refus ed) Start: 01-13-2023 COVID-19 Vaccine (1) COVID-19 Vaccine (1) [facility] Comment on above: Postponed from 11/14/2004 (Patient Refus ed) Start: 01-13-2023 Depression Screen Depression Screen [facility] Start: 01-13-2023 DTaP/Tdap/Td vaccine (1 - Tdap) DTaP/Tdap/Td vaccine (1 - Tdap) [facility] Comment on above: Postponed from 11/14/2018 (Patient Refus ed) Start: 01-13-2023 Hepatitis C screening Hepatitis C screen [facility] Comment on above: Postponed from 11/14/2017 (Patient Refus ed) Start: 01-13-2023 HIV screening HIV screen [facility] Comment on above: Postponed from 11/14/2014 (Patient Refus ed) Start: 01-13-2023 HPV vaccine (1 - 2-dose series) HPV vaccine (1 - 2-dose series) [facility] Comment on above: Postponed from 11/14/2010 (Patient Refus ed) Start: 11-30-2022 End: 11-30-2022 Patient encounter procedure 11/30/2022 Office Visit Cardiology Samantha Mora PA-C [address] [place], [place] [id number] [facility]ARD[facility] of [facility] Start: 10-31-2022 End: 10-31-2022 ambulatory 10/31/2022 Visit Obstetrics and Gynecology Jacqui Russell, FBI INVESTIGATOR - CNM [address] [facility], [place] [address] [facility] Obstetrics & Gynecology Start: 09-21-2022 End: 09-21-2022 Patient encounter procedure 09/21/2022 Office Visit Cardiology Samantha Mora PA-C [address] [place] [address] [facility] CARD[facility] Part [facility] Start: 09-20-2022 End: 09-20-2022 Patient encounter procedure 09/20/2022 Routine Obstetrics and Gynecology Jacqui Russell, FBI INVESTIGATOR - CNM [address] [facility], [place] [address] [facility] Obstetrics & Gynecology Start: 09-14-2022 End: 09-14-2022 Patient encounter procedure 09/14/2022 Routine Obstetrics and Gynecology Elizabeth Galvez, FBI INVESTIGATOR - CNM [address] [address] [facility] Obstetrics & Gynecology Start: 09-08-2022 End: 09-08-2022 Patient encounter procedure 09/08/2022 Routine Obstetrics and Gynecology Aditya Galvan APRN - SPECIAL DISTRIBUTION CLERK [address] [address] [facility] Obstetrics & Gynecology Start: 09-08-2022 End: 09-08-2022 Professional / ancillary services management 09/08/2022 Ancillary Procedure Obstetrics and Gynecology [facility] Start: 08-25-2022 End: 08-25-2022 Patient encounter procedure 08/25/2022 Routine Obstetrics and Gynecology Jacqui Russell, FBI INVESTIGATOR - CNM [address] [facility], [place] [address] [facility] Obstetrics & Gynecology Start: 08-16-2022 End: 08-16-2022 Patient encounter procedure [facility] Start: 08-10-2022 End: 08-10-2022 Patient encounter procedure 08/10/2022 Routine Obstetrics and Gynecology Arin Sykes, DO [address] [facility], [place] [address] [facility] Obstetrics & Gynecology Start: 08-10-2022 End: 08-10-2022 Professional / ancillary services management 08/10/2022 Ancillary Procedure Obstetrics and Gynecology [facility]etrics [facility] Gyne[facility] Start: 08-09-2022 End: 08-09-2022 Patient encounter procedure 08/09/2022 Office Visit Primary Care Nick Quiñones, FBI INVESTIGATOR - RACKING MACHINE OPERATOR [address] [place], [place] [address] [facility] Start: 08-03-2022 End: 08-03-2022 Patient encounter procedure 08/03/2022 Routine Obstetrics and Gynecology Elizabeth Galvez, FBI INVESTIGATOR - CNM [address] [facility] [address] [place], [place] [id number] [facility] Obstetrics & Gynecology Start: 05-09-2022 End: 05-09-2022 Patient encounter procedure 05/09/2022 Office Visit Primary Care Nick Quiñones FBI INVESTIGATOR - RACKING MACHINE OPERATOR [address] [place] [address] [facility] Start: 04-04-2022 End: 04-04-2022 Patient encounter procedure 04/04/2022 Routine Obstetrics and Gynecology Pete Sol, FBI INVESTIGATOR - CNM 27 [facility] [address] [place] [address] [facility] Start: 03-17-2022 Influenza vaccination [facility] Start: 02-03-2022 End: 02-03-2022 Patient encounter procedure 02/03/2022 Office Visit Primary Care Nick Quiñones, FBI INVESTIGATOR - RACKING MACHINE OPERATOR [address] [place] [address] [facility] [place] Start: 03-17-2021 Influenza vaccination Flu vaccine (#1) [employer] Phone: Start: 11-14-2020 Screening for malignant neoplasm of cervix Cervical cancer screen [employer] Phone: Start: 02-13-2020 _SARS-CoV-2 COVID19 test [facility] Work Phone: Start: 01-14-[address] up Testing [facility] Work Phone: Start: 11-14-2018 DTaP/Tdap/Td vaccine (1 - Tdap) DTaP/Tdap/Td vaccine (1 - Tdap) [employer] Phone: Start: 2015 Screening for Chlamydia trachomatis Chlamydia screen [employer] Start: 11-14-2014 HIV screening HIV screen [employer] Phone: Start: 2011 COVID-19 Vaccine (1) COVID-19 Vaccine (1) [employer] Phone: Start: 11-14-2010 HPV vaccine (1 - 2-dose series) HPV vaccine (1 - 2-dose series) [employer] Phone: Start: 11-14-2000 Varicella vaccine (1 of 2 - 2-dose childhood series) Varicella vaccine (1 of 2 - 2-dose childhood series) [employer] Phone: Start: 1999 Hepatitis C screening Hepatitis C screen [employer] Phone: End: 08-02-2022 Bacteria identified in Urine by Culture Urine culture Microbiology Routine One Time for 1 Occurrences starting 08/02/2022 until 08/02/2022 [employer] Phone: Comment on above: One Time for 1 Occurrences starting 07/17 until 08/02/2022 End: 09-24-2022 Bacteria identified in Urine by Culture Urine culture Microbiology Routine One Time for 1 Occurrences starting 09/24/2022 until 09/24/2022 [employer] Phone: Comment on above: One Time for 1 Occurrences starting 09/14 until 09/24/2022 End: 02-21-2022 C.trachomatis N.gonorrhoeae DNA, Urine [employer] Phone: Comment on above: 1 Occurrences starting 02/21/2022 until 02/21/2022 End: 08-16-2022 Continuous cardiac monitoring, >2 up to 14 days Continuous cardiac monitoring, >2 up to 14 days Cardiac Services Routine Light headedness POTS (postural orthostatic tachycardia syndrome) Abnormal tilt table test 29 weeks gestation of Chest pain, unspecified type 1 Occurrences starting 08/16/2022 until 08/16/2022 [employer] Phone: Comment on above: 1 Occurrences starting 08/16/2022 until 08/16/2022 Continuous pulse oximetry Pulse oximetry, continuous while on epidural Respiratory Care Routine Every 4hr until discontinued starting 09/25/2022 [employer] Phone: Comment on above: Every 4hr until discontinued starting End: 09-14-2022 Culture, Strep B Screen, Vaginal/Rectal [employer] Phone: Comment on above: 1 Occurrences starting 09/14/2022 until 09/14/2022 End: 02-21-2022 Culture, Urine [employer] Phone: Comment on above: 1 Occurrences starting 02/21/2022 until 02/21/2022 End: 03-15-2021 Cytopathology procedure, preparation of smear, genital source PAP SMEAR Lab Routine Women's annual routine gynecological examination 1 Occurrences starting 03/15/2021 until 03/15/2021 [employer] Phone: Comment on above: 1 Occurrences starting 03/15/2021 until 03/15/2021 nonstress test nonst ress test OB Routine Daily until discontinued starting 08/03/2022 [employer] Phone: Comment on above: Daily until discontinued starting 2022 nonstress test nonst ress test OB Routine Daily until discontinued starting 09/25/2022 [employer] Phone: Comment on above: Daily until discontinued starting 2022 Nonrebreather mask oxygen Nonrebreather mask oxygen Respiratory Care Routine As directed - RT (PRN) until discontinued starting 08/02/2022 [employer] Phone: Comment on above: As directed - RT (PRN) until discontinue d starting 08/02/2022 Nonrebreather mask oxygen Nonrebreather mask oxygen Respiratory Care Routine As directed - RT (PRN) until discontinued starting 09/24/2022 [employer] Phone: Comment on above: As directed - RT (PRN) until discontinue d starting 09/24/2022 Nonrebreather mask oxygen Nonrebreather mask oxygen Respiratory Care Routine As directed - RT (PRN) until discontinued starting 09/24/2022 [employer] Phone: Comment on above: As directed - RT (PRN) until discontinue d starting 09/24/2022 Oxygen therapy [Minimum Data Set] Initiate Oxygen Therapy Protocol while on epidural Respiratory Care Routine Daily until discontinued starting 09/24/2022 [employer] Phone: Comment on above: Daily until discontinued starting 2022 End: 09-25-2022 SURGICAL PATHOLOGY REPORT SURGICAL PATHOLOGY REPORT Lab Routine Once for 1 Occurrences starting 09/25/2022 until 09/25/2022 [employer] Phone: Comment on above: Once for 1 Occurrences starting 09/26/19 until 09/25/2022 End: 08-02-2022 SVE SVE Point of Care Testing Routine One Time for 1 Occurrences starting 08/02/2022 until 08/02/2022 [employer] Phone: Comment on above: One Time for 1 Occurrences starting 07/17 until 08/02/2022 End: 09-24-2022 SVE SVE Point of Care Testing Routine One Time for 1 Occurrences starting 09/24/2022 until 09/24/2022 [employer] Work Phone: Comment on above: One Time for 1 Occurrences starting 09/14 until 09/24/2022 Immunizations Immunization Date Immunization Notes Care Provider [facility] 09-25-2022 diphtheria, tetanus toxoids and acellular pertussis vaccine, unspecified formulation Zak Bejarano MD Work Phone: [employer] Phone: Payers Date Payer Category Payer Unknown [id number] 2014 Unknown [id number]. [id number] 1999 Unknown [id number] 2.16.8 40.1.061347.3.579.2.173 1999 Unknown [id number] 2.16.8 40.1.053594.3.579.2.173 1999 Unknown [id number] 2.16.8 40.1.780158.3.579.2.173 1999 Unknown [id number] 2.16.8 40.1.960743.3.579.2.173 1999 Unknown [id number] 2.16.8 40.1.168589.3.579.2.173 1999 Unknown [id number] 2.16.8 40.1.832343.3.579.2.173 1999 Unknown [id number] 2.16.8 40.1.625485.3.579.2.173 1999 Unknown [id number] 2.16.8 40.1.332136.3.579.2.173 1999 Unknown [id number] 2.16.8 40.1.027698.3.579.2.173 1999 Unknown [id number] 2.16.8 40.1.147577.3.579.2.173 1999 Unknown [id number] 2.16. 840.1.694115.3.579.2.175 1999 Unknown [id number] 2.16. 840.1.280227.3.579.2.175 1999 Unknown [id number] 2.16. 840.1.500067.3.579.2.175 1999 Unknown [id number] 2.16. 840.1.166667.3.579.2.175 1999 Unknown [id number] 2.16.84 0.1.363097.3.579.2.1258 1999 Unknown [id number] 2.16.84 0.1.513118.3.579.2.9 1999 Unknown [id number] 2.16.84 0.1.057901.3.579.2.9 1999 Unknown [id number] 2.16.84 0.1.222989.3.579.2.1258 1999 Unknown [id number] 2.16.84 0.1.441938.3.579.2.9 1999 Unknown [id number] 2.16.84 0.1.758793.3.579.2.9 1999 Unknown [id number] 2.16.84 0.1.605325.3.579.2.1258 1999 Unknown [id number] 2.16.84 0.1.729343.3.579.2.9 1999 Unknown [id number] 2.16.840 .1.184991.3.579.2.9 1999 Unknown [id number] 2.16.840 .1.247297.3.579.2.1259 Self-pay [id number] 2.16.840 .1.892697.3.140.1.76594.5.4 Social History Date Type Detail Facility Assertion Gender identity finding (finding) Health [facility] Work Phone: Assertion Finding of sexua l orientation (finding) Health [facility] Work Phone: Tobacco smoking status Unknown if ever smoked Health [employer] [facility] Work Phone: Start: 05-18-2012 End: 03-15-2021 Tobacco smoking status NHIS Never smoker [employer] Phone: Start: 05-18-2012 End: 03-15-2021 Tobacco use and exposure Never used [employer] Start: 03-15-2021 End: 09-25-2022 Alcohol intake Current non-drinker of alcohol (finding) [employer] Phone: Start: 2000 [facility]igned [facility]: Start: 01-13-2022 History SDOH Financial 5 [employer] Work Phone: Start: 01-13-2022 History SDOH Food Worry 1 [employer] Phone: Start: 01-19-2022 JUAN Cristina [employer] Work Phone: Start: 07-23-2022 End: 09-24-2022 Exposure to SARS-CoV-2 (event) Not sure [employer] Phone: NEGATED: Highlighted row Assertion Current drinker of alcohol (finding) [facility] Work Phone: NEGATED: Highlighted row Assertion Finding relating to drug misuse behavior (finding) [facility] Work Phone: NEGATED: Highlighted row Assertion Exposure to pollution (event) [facility] Work Phone: NEGATED: Highlighted row Assertion Tobacco user (finding) [facility] Work Phone: Clinical Notes 01-25-2022 to 09-26-2022 Discharge InstructionsZenaida Grant APRN - AYANNAM - 09/26/2022 9:02 AM EDAndreas Grant APRN - AYANNAM - 09/26/2022 8:56 AM Javier Bejarano MD - 09/24/2022 10:40 PM [employer] Work - 08/16/2022 10:00 AM EST Note Date & Type Note Facility 09-26-2022 Hospital Discharg e instructions Kiran Gamino RN - 09/26/2022 9:55 AM EDT Follow-up with your OB doctor as specified. [facility] OB Department phone: Dr. Asya Gruber CNM Dr. Skye Sol CN [address] [facility] [address] [facility] [address] [place] [address] [place] [address] Skye Russell CN [address] [facility] [id number] [phone] Kenya Tinajero, MSN, FBI INVESTIGATOR, CNM [facility] [address] [facility] [address] [address] [facility] [address] Pete Recio CN [address] [place] [address] [place] [address] Zenaida Grant CNM [address] [place] [address] [place] [address] [phone] DIET Eat a well balanced diet focusing on foods high in fiber and protein. Drink plenty of fluids especially water. To avoid constipation you may take a mild stool softener as recommended by your doctor or terrazzo polisher. ACTIVITY Gradually increase your activity. Resume exercise regimen only after advice by your doctor or terrazzo polisher. Avoid lifting anything heavier than a gallon of milk for SIX weeks. Avoid driving until your doctor or terrazzo polisher has given their approval. Rise slowly from [...] medications as recommended by your doctor or terrazzo polisher for pain If you develop a warm, [...] vitamins as directed by your doctor or terrazzo polisher. Refer to the booklet in the folder/binder for more information. If you feel you need more assistance or have questions, please call Stacey Rodriguez IBCLC, insurance healthcare consultant, at or the OB department to [...] your calf. documented in this encounter [facility] [employer] Work Phone: 09-26-2022 Hospital course Narrative Obstetrical [...] NONREACTIVE Final HIV: No results found for: [id number] Results for orders placed or performed during the hospital encounter of 09/24/22 Urinalysis Result Value Ref Range Color, UA Yellow Yellow Turbidity UA Clear Clear Glucose, Ur NEGATIVE NEGATIVE Bilirubin Urine NEGATIVE NEGATIVE Ketones, Urine TRACE (A) NEGATIVE Specific [place], UA 1.010 1.010 - 1.020 Urine Hgb [...] # 2.52 1.10 - 3.70 k/uL Absolute [place] # 0.80 0.10 - 1.20 k/uL Absolute [...] Range Expiration Date 09/27/2022,2359 Arm Band Number [id number] ABO/Rh A POSITIVE Antibody Screen NEGATIVE complications: [...] Your Medications These medications were sent to [facility], [place] - [address] [address] - P [phone] - F [phone] [address] [facility] [address], [place] [address] docusate 100 MG Caps ibuprofen 800 MG tablet Admit date: 09/24/2022 3:00 PM Discharge Date: 09/26/2022 Discharged to: Home in stable condition Plan: Follow up in 6 week(s) for post visit, blood pressure check, breast feeding check, and post depression check documented in this encounter [facility] [employer] Phone: 09-26-2022 History of Presen t illness [...] Psych: Appears to be bonding well with infant, appropriate affect. DATA: CBC: Lab Results Component [...] rate: Baseline Heart Rate: 125 Accelerations: present [facility] Variability: moderate Decelerations: absent Contraction frequency: 2 minutes Position: Cephalic Membranes: ROM clear fluid Cervix: Dilation: 6-7 cm Effacement: 80 Station: -1 Consistency: soft Position: mid ASSESSMENT & PLAN: Active labor. S/P AROM. Patient progressing continue current management Provider at bedside. Admission orders received from Dr Bejarano. Amnioswab negative. documented in this encounter [facility] [employer] Phone: 08-16-2022 History of Presen t illness Narrative Explained policies and procedure of an echocardiogram/Doppler study. Patient instructed on extended manager monitoring indications and use. Diary sent with patient. 5-7 days documented in this encounter [employer] Phone: 08-02-2022 History of Presen t illness [...] urine sample. documented in this encounter [facility] [employer] Work Phone: 08-02-2022 Hospital Discharg e instructions Wendy Choudhary RN - 08/02/2022 6:20 PM EST OUTPATIENT DISCHARGE Dr Skye Russell CN [address] [facility] [id number] [phone] ACTIVITY LIMITATIONS: ( X )Up and about [...] AND DELIVERY . documented in this encounter [employer] Phone: 01-25-2022 History of Presen t illness Narrative Explained Holter monitor and diary. documented in this encounter [employer] Phone: Evaluation note Diagnosis Women's annual routine gynecological examination documented in this encounter [employer] Phone: evaluation note* Diagnosis Heart palpitations Palpitations documented in this encounter [employer] Phone: evaluation note* Diagnosis Heart palpitations Palpitations documented in this encounter [employer] Phone: evaluation note* Diagnosis Encounter for supervision of normal , antepartum, unspecified Positive urine test documented in this encounter [employer] Phone: evaluation note* Diagnosis contractions- Primary Unspecified abnormality of labor, antepartum documented in this encounter [employer] Phone: evaluation note* Diagnosis Light headedness Dizziness and giddiness POTS (postural orthostatic tachycardia syndrome) Tachycardia, unspecified Abnormal tilt table test Other nonspecific abnormal result of function study of brain and central nervous system documented in this encounter [employer] Phone: evaluation note* Diagnosis Light headedness Dizziness and giddiness POTS (postural orthostatic tachycardia syndrome) Tachycardia, unspecified Abnormal tilt table test Other nonspecific abnormal result of function study of brain and central nervous system 29 weeks gestation of state, incidental Chest pain, unspecified type documented in this encounter [employer] Phone: evaluation note* Diagnosis Encounter for supervision of normal first in second trimester Supervision of normal first documented in this encounter [employer] Phone: evalyuexpl note* Diagnosis 36 weeks gestation of state, incidental documented in this encounter [employer] Phone: evaluation note* Diagnosis Elevated blood pressure affecting , antepartum documented in this encounter [employer] Phone: evaluation note* Diagnosis Elevated blood pressure affecting , antepartum documented in this encounter [employer] Phone: evaluation note* Diagnosis (spontaneous vaginal delivery)- Primary Normal delivery Rupture of membranes with delay of delivery Term documented in this encounter [employer] Phone: Summary Purpose Family History No Family History Records Found Description Last Updated Maternal history of family history of is chemic heart disease 01/14/2020 Paternal history of family history of is chemic heart disease 01/14/2020 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s No Advanced Directives Records FoundDocuments on File Type Date Recorded Patient Hand Stemmer Expl anation ACP-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 ACP-Power of Chip Mixing Machine Operator Documents on File Type Date Recorded Patient Hand Stemmer Expl anation ACP-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 ACP-Power of Chip Mixing Machine Operator Latest Code Status on File Code Status [...] Monitor 48 Hour Nick Quiñones APRN - RACKING MACHINE OPERATOR [address] [place] [address] Referral ID Status Reason Start Date Expiration Date Visits Re quested Visits Authorized [id number] Closed 01/13/2022 01/13/2023 1 1 Specialty Diagnoses / Procedures Referred By Contac t Referred To Contact Cardiology Diagnoses Light headedness POTS (postural orthostatic tachycardia syndrome) Abnormal tilt table test Procedures Echo 2D w doppler w color complete Jade Soto MD [address] [place], [place] [id number] Referral ID Status Reason Start Date Expiration Date Visits Re quested Visits Authorized [id number] Closed 08/04/2022 08/10/2023 1 1 Specialty Diagnoses / Procedures Referred By Contac t Referred To Contact Diagnoses Light headedness POTS (postural orthostatic tachycardia syndrome) Abnormal tilt table test 29 weeks gestation of Chest pain, unspecified type Procedures Continuous cardiac monitoring, >2 up to 14 days Jade Soto MD [address] [place] [id number] Referral ID Status Reason Start Date Expiration Date Visits Re quested Visits Authorized [id number] Closed 07/27/2022 07/27/2023 1 1 Assessments Findings Encounter Date Body mass index Telemedicine with Radha Saleem SPECIAL DISTRIBUTION CLERK 01/14/2020 Exposure to a viral disease Telemedicine [...] DATE CREATED AUTHOR AUTHOR'S ORGANIZ ATION 09/28/2022 [facility] DATE CREATED AUTHOR AUTHOR'S ORGANIZ ATION 07/08/2023 [facility] DATE CREATED AUTHOR AUTHOR'S ORGANIZ ATION 01/05/2024 [facility] dical Specialists EPIC Evaluations & Outcomes (unre cognized section and content) Includes: Evaluations & Outcomes for active GoalsNo Outcomes Recorded Includes: Evaluations & Outcomes for active GoalsNo Outcomes Recorded Care Teams (unrecognized sec tion and content) Data Virtualization Consultant Relationship Specialty Start Date End Date Nick Quiñones APRN - RACKING MACHINE OPERATOR [address] [phone] PCP - General Certified Nurse 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 01/13/22 Data Virtualization Consultant Relationship Specialty Start Date End Date Nick Quiñones APRN - RACKING MACHINE OPERATOR [address] [place] [address] PCP - General Certified Nurse 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 01/13/22 Data Virtualization Consultant Relationship Specialty Start Date End Date Nick Quiñones APRN - RACKING MACHINE OPERATOR [address] [place] [address] PCP - General Certified Nurse 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 01/13/22 Data Virtualization Consultant Relationship Specialty Start Date End Date Nick Quiñones APRN - RACKING MACHINE OPERATOR [address] [place] [address] PCP - General Certified Nurse 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 01/13/22 Data Virtualization Consultant Relationship Specialty Start Date End Date Nick Quiñones APRN - RACKING MACHINE OPERATOR [address] [phone] PCP - General Certified Nurse 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 01/13/22 Data Virtualization Consultant Relationship Specialty Start Date End Date Nick Quiñones APRN - RACKING MACHINE OPERATOR [address] [phone] PCP - General Certified Nurse 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 01/13/22 Data Virtualization Consultant Relationship Specialty Start Date End Date Nick Quiñones FBI INVESTIGATOR - RACKING MACHINE OPERATOR [address] [phone] PCP - General Certified Nurse 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 01/13/22 Data Virtualization Consultant Relationship Specialty Start Date End Date Nick Quiñones FBI INVESTIGATOR - RACKING MACHINE OPERATOR [address] [phone] PCP - General Certified Nurse 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 01/13/22 Data Virtualization Consultant Relationship Specialty Start Date End Date Nick Quiñones APRN - RACKING MACHINE OPERATOR [address] [phone] PCP - General Certified Nurse 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 01/13/22 Data Virtualization Consultant Relationship Specialty Start Date End Date Nick Quiñones FBI INVESTIGATOR - RACKING MACHINE OPERATOR [address] [phone] PCP - General Certified Nurse 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 01/13/22 Reason for Visit (unrecogniz ed section and content) Specialty Diagnoses / Procedures Referred By Nii t Referred To Contact Diagnoses Heart palpitations Procedures Holter Monitor 48 Hour Nick Quiñones FBI INVESTIGATOR - RACKING MACHINE OPERATOR [address] [phone] Referral ID Status Reason Start Date Expiration Date Visits Re quested Visits Authorized [id number] Closed 01/13/2022 01/13/2023 1 1 Reason Comments Contractions Specialty Diagnoses / Procedures Referred By Contac t Referred To Contact Cardiology Diagnoses Light headedness POTS (postural orthostatic tachycardia syndrome) Abnormal tilt table test Procedures Echo 2D w doppler w color complete Jade Soto MD [address] [id number] Referral ID Status Reason Start Date Expiration Date Visits Re quested Visits Authorized [id number] Closed 08/04/2022 08/10/2023 1 1 Specialty Diagnoses / Procedures Referred By Nii garrido Referred To Contact Diagnoses Light headedness POTS (postural orthostatic tachycardia syndrome) Abnormal tilt table test 29 weeks gestation of Chest pain, unspecified type Procedures Continuous cardiac monitoring, >2 up to 14 days Jade Soto MD [address] [place] [id number] Referral ID Status Reason Start Date Expiration Date Visits Re quested Visits Authorized [id number] Closed 07/27/2022 07/27/2023 1 1 Reason Comments [...] mL/lumen, 1045 (Due)2100 (Due) 0900 (Due)2100 (Due) mayqwco-dvktbv-kchbt pertussis (BOOSTRIX) injection 0.5 mL 0.5 mL, [...] at 1045, 1200 (Stopped - Provider: Marycruz Lloyd RN) oxytocin (PITOCIN) 30 units in 500 [...] every 2-3 minutes with cervical changes or [place] units (MVU) greater than 200 in a [...] Oral, EVERY 8 HOURS PRN, Starting on Gregory 09/25/22 at 2228, Until Discontinued, Pain Mild [...] PRN, Dry Skin, nipple discomfort, Starting on Gregory 09/25/22 at 1023, methylergonovine (METHERGINE) injection 200 [...] 6 HOURS PRN, Starting on 09/24/22 at 181, Until Discontinued, Nausea, Labor and Delivery 2151 [...] and Delivery 0921 (New Bag - Provider: Marycurz Lloyd, RN)0931 (Due: Stopped - Provider: Marycruz [...] BE BASED ON THE PRIMARY CLINICAL RECORDS. [employer] provides no warranty or guarantee of the accuracy or completeness of information in this document.
[2024-01-07 15:00] VITALS: BP 135/81; PULSE 83
[2024-01-07 15:13] LABS: Bilirubin Urine NEGATIVE (NEGATIVE); Blood Urine NEGATIVE (NEGATIVE); Clarity Urine CLEAR (CLEAR); Color Urine LT. YELLOW (YELLOW); Glucose Urine UA NEGATIVE (NEGATIVE); Ketones Urine NEGATIVE (NEGATIVE); Leukocyte Esterase Urine NEGATIVE (NEGATIVE); Nitrite Urine NEGATIVE (NEGATIVE); Protein Urine NEGATIVE (NEG/TRACE); Specific Gravity Urine <=1.005 (1.005-1.025); Urobilinogen Urine 0.2 EU/dL (0.2-1.0); pH Urine 6.5 (5.0-9.0)
[2024-01-07 15:15] LABS: Urine Microscopic Indicated NO
== END 2024-01-07 16:20 | disposition home or self-care (01) ==
LOC: FBC 14:50
PROVIDERS: Admitting Provider Obstetrics & Gynecology; Visit Provider Obstetrics & Gynecology
DX: O47.1 False labor at or after 37 completed weeks of gestation (principal); Z3A.37 37 weeks gestation of pregnancy
CPT/HCPCS: 59025; 81003; G0378; G0379

== ENCOUNTER 2024-01-11 10:31 | Outpatient (OUT) | payer OTHER, BC, SELFPAY ==
--- NOTE | 2024-01-11 10:33 | US_ITS ---
[address] [address] Patient Name: FABIEN PERAZA MRN: [id number] date: 2000 Sex: F Assigned Patient Location: [facility] Current Patient Location: [facility] Accession/Order Number: [id number] Exam Date: 01/11/2024 10:35 Report Date: 01/11/2024 15:10 At the request of: MELO LAM Procedure: US OB growth EXAMINATION: US OB growth HISTORY: Excessive growth O36.60X0 COMPARISON: No relevant comparison available. FINDINGS: Heart Rate: 129 bpm Amniotic Fluid Volume: 8.2 cm, largest fluid pocket 4.0 cm Number: 1 Position: Cephalic presentation, longitudinal lie BIOMETRY: BPD: 8.90 cm cm; 36 weeks 0 days; 26.40 %% HC: 32.96 cm cm; 37 weeks 4 days; 25.50 %% AC: 34.30 cm cm; 38 weeks 1 day; 81.40 %% FL: 7.57 cm cm; 38 weeks 5 days; 78.50 %% EFW: 3149.60 g; 7 lbs. 6 oz., 70 % FL/AC: 22.07 FL/BPD: 85.06 HC/AC: 0.96 GESTATIONAL AGE: Age by EDC: 37 weeks 4 days EARNEST by EDC: 2024-01-28 Age by US: 37 weeks 4 days EARNEST by US: 2024-01-28 US/US OB growth IMPRESSION: Normal interval growth Electronically authenticated by: JYOTHI GUZMAN Date: 01/11/2024 15:10
--- OUTSIDE RECORDS SUMMARY | 2024-01-11 10:43 | XMS_ITS | CCD ---
Author Organization [facility] Care Team Providers Care Conveyor Attendant Name Role Phone ROJAS, WICHO S Unavailable Unavailable ROJAS, WICHO S Unavailable Unavailable ROJAS, WICHO S Unavailable Unavailable ROJAS, WICHO S Unavailable Unavailable ROJAS, WICHO S Unavailable Unavailable ROJAS, WICHO S Unavailable Unavailable Radha Cuevas Primary Care Provider Catarino [place], Cari Smith Primary Care Provider Unav ailable Stephanie WHIZZER - CYBER SECURITY INSTRUCTOR, Nick Stein Primary Care Provid er Stephanie WHIZZER - CYBER SECURITY INSTRUCTOR, Nick L Primary Care Provid er Stephanie WHIZZER - CYBER SECURITY INSTRUCTOR, Nick L Primary Care Provid er STEPHANIE NICK Sarita Primary Care Unavailable BEJARANO, ZAK N Admitting Unavailable [facility] BE[facility]OA Yamile Attending Unavailable STEPHANIE, NICK Sarita Primary Care Unavailable PETE SOL Attending UnavailEPTE Maloney Admitting Unavailabl e STEPHANIE, NICK Stein [...] 650 mg take 2 tablets by mo [facility] every six hours as needed acetaminophen [...] Episodic Unclassified (1 source) Hip Pain / [id number]() Onset: 10-12-2017 Past or Other Problems Problem [...] Results Test Name Value Interpretation Reference Range [facility] Surgical Pathologyon 023 Surgical Pathology (NOTE) -- [...] SURGICAL PATHOLOGY CONSULTATION Patient Name: FABIEN PERAZA [facility] Rec: [id number] Path Number: [id number] ufindads CONSULTING PATHOLOGISTS [facility] EMERGENCY DEPARTMENT ANATOMIC PATHOLOGY [address] [place] [phone] [facility] Comment on above: Performed By: #### U CGP #### [email or web address] [address] [place] [address] Ict Programmer: Diego Bashir MD Type + Screenon 09-25-2022 Type + Screen Sample Expiration 09/27/2022,2359 Arm Band Number [id number] ABO/Rh(D) A POSITIVE Antibody Screen NEGATIVE [facility] Comment on above: Performed By: #### U CGP #### [email or web address] [address] [place] [address] Ict Programmer: Diego Bashir MD CBC with Auto Differentialon 09-24-2022 Absolute Eos # 0.08 [facility] Absolute Immature Granulocyte 0.11 [facility] Absolute Lymph # 2.52 [facility] [place] # 0.80 [facility] Basophils (Bld) [#/Vol] 0.05 10*3/uL [facility] [employer] Basophils/100 WBC (Bld) 1 % 0 - 2 % [facility] Eosinophils/100 WBC (Bld) 1 % 1 - 4 % [facility] Hematocrit (Bld) [Volume fraction] 31.9 % Low 36.3 - 47.1 % [facility] Hemoglobin (Bld) [Mass/Vol] 10.5 g/dL Low 11.9 - 15.1 g/dL [facility] Immature granulocytes/100 WBC (Bld) 1 % High 0 [facility] Interpretation and review of laboratory results Abnormal [facility] Lymphocytes/100 WBC (Bld) 25 % 24 - 43 % [facility] MCH (RBC) [Entitic mass] 25.1 pg Low 25.2 - 33.5 pg [facility] MCHC (RBC) [Mass/Vol] 32.9 g/dL 28.4 - 34.8 g/dL [facility] MCV (RBC) [Entitic vol] 76.3 fL Low 82.6 - 102.9 fL [facility] Monocytes/100 WBC (Bld) 8 % 3 - 12 % [facility] NRBC Automated 0.0 0.0 per 100 WBC [facility] Platelet distribution width (Bld) [Ratio] 14.7 % High 11.8 - 14.4 % [facility] Platelet mean volume (Bld) [Entitic vol] 8.7 fL 8.1 - 13.5 fL [facility] Platelets (Bld) [#/Vol] 298 10*3/uL [facility] RBC (Bld) [#/Vol] 4.18 10*6/uL 3.95 - 5.11 m/uL [facility] Segmented neutrophils/100 WBC (Bld) 64 % 36 - 65 % [facility] Segs Absolute 6.71 [facility] WBC (Bld) [#/Vol] 10.3 10*3/uL [facility] CBC with Diffon 09-24-2022 Abs. Basophil 0.05 k/uL Normal 0.00-0.20 [facility] Comment on above: Performed By: #### U CGP #### [address] [address] Ict Programmer: Diego Bashir MD Abs.Imm.Granulocyte 0.11 k/uL Normal 0.00-0.30 [facility] Comment on above: Performed By: #### U CGP #### [address] [address] Ict Programmer: Diego Bashir MD Abs.Neutrophil (Seg) 6.71 k/uL Normal 1.50-8.10 [facility] Comment on above: Performed By: #### U CGP #### [address] [address] Ict Programmer: Diego Bashir MD Basophils/100 WBC (Bld) 1 % Normal 0-2 [facility] Comment on above: Performed By: #### U CGP #### [address] [address] Ict Programmer: Diego Bashir MD Eosinophils (Bld) [#/Vol] 0.08 10*3/uL Normal 0.00-0.44 [facility] Comment on above: Performed By: #### U CGP #### [address] [address] Ict Programmer: Diego Bashir MD Eosinophils/100 WBC (Bld) 1 % Normal 1-4 [facility] Comment on above: Performed By: #### U CGP #### [address] [address] Ict Programmer: Diego Bashir MD Erythrocyte distribution width (RBC) [Ratio] 14.7 % High 11.8-14.4 [facility] Comment on above: Performed By: #### U CGP #### [address] [address] Ict Programmer: Diego Bashir MD Hematocrit (Bld) [Volume fraction] 31.9 % Low 36.3-47.1 [facility] Comment on above: Performed By: #### U CGP #### [address] [address] Ict Programmer: Diego Bashir MD Hemoglobin (Bld) [Mass/Vol] 10.5 g/dL Low 11.9-15.1 [facility] Comment on above: Performed By: #### U CGP #### [address] [address] Ict Programmer: Diego Bashir MD Immature granulocytes/100 WBC (Bld) 1 % High 0 [facility] Comment on above: Performed By: #### U CGP #### [address] [address] Ict Programmer: Diego Bashir MD Lymphocytes (Bld) [#/Vol] 2.52 10*3/uL Normal 1.10-3.70 [facility] Comment on above: Performed By: #### U CGP #### [address] [address] Ict Programmer: Diego Bashir MD Lymphocytes/100 WBC (Bld) 25 % Normal 24-43 [facility] Comment on above: Performed By: #### U CGP #### [address] [address] Ict Programmer: Diego Bashir MD MCH (RBC) [Entitic mass] 25.1 pg Low 25.2-33.5 [facility] Comment on above: Performed By: #### U CGP #### [address] [address] Ict Programmer: Diego Bashir MD MCHC (RBC) [Mass/Vol] 32.9 g/dL Normal 28.4-34.8 [facility] Comment on above: Performed By: #### U CGP #### [address] [address] Ict Programmer: Diego Bashir MD MCV (RBC) [Entitic vol] 76.3 fL Low 82.6-102.9 [facility] Comment on above: Performed By: #### U CGP #### [address] [address] Ict Programmer: Diego Bashir MD Monocytes (Bld) [#/Vol] 0.80 10*3/uL Normal 0.10-1.20 [facility] Comment on above: Performed By: #### U CGP #### [address] [address] Ict Programmer: Diego Bashir MD Monocytes/100 WBC (Bld) 8 % Normal 3-12 [facility] Comment on above: Performed By: #### U CGP #### [address] [address] Ict Programmer: Diego Bashir MD Neutrophil (Seg) 64 % Normal 36-65 [facility] Comment on above: Performed By: #### U CGP #### [address] [address] Ict Programmer: Diego Bashir MD NRBC Automated 0.0 per 100 WBC Normal 0.0 [facility] Comment on above: Performed By: #### U CGP #### [address] [address] Ict Programmer: Diego Bashir MD Platelet mean volume (Bld) [Entitic vol] 8.7 fL Normal 8.1-13.5 [facility] Comment on above: Performed By: #### U CGP #### [address] [address] Ict Programmer: Diego Bashir MD Platelets (Bld) [#/Vol] 298 10*3/uL Normal 138-453 [facility] Comment on above: Performed By: #### U CGP #### [address] [address] Ict Programmer: Diego Bashir MD RBC (Bld) [#/Vol] 4.18 10*6/uL Normal 3.95-5.11 [facility] Comment on above: Performed By: #### U CGP #### [address] [place] [address] Ict Programmer: Diego Bashir MD WBC (Bld) [#/Vol] 10.3 10*3/uL Normal 3.5-11.3 [facility] Comment on above: Performed By: #### U CGP #### [address] [address] Ict Programmer: Diego Bashir MD Comp Metabolic Profon 2022 Albumin [Mass/Vol] 3.5 g/dL Normal 3.5-5.2 [facility] Comment on above: Performed By: #### U CGP #### [address] [address] Ict Programmer: Diego Bashir MD Albumin/Glob Ratio 1.1 Normal 1.0-2.5 [facility] Comment on above: Performed By: #### U CGP #### [address] [address] Ict Programmer: Diego Bashir MD Alkaline Phos 140 U/L High 35-104 [facility] Comment on above: Performed By: #### U CGP #### [address] [address] Ict Programmer: Diego Bashir MD ALT [Catalytic activity/Vol] 8 U/L Normal 5-33 [facility] Comment on above: Performed By: #### U CGP #### [address] [address] Ict Programmer: Diego Bashir MD Anion gap [Moles/Vol] 15 mmol/L Normal 9-17 [facility] Comment on above: Performed By: #### U CGP #### [address] [place] [address] Ict Programmer: Diego Bashir MD AST [Catalytic activity/Vol] 14 U/L Normal <32 [facility] Comment on above: Performed By: #### U CGP #### [address] [address] Ict Programmer: Diego Bashir MD Bilirubin [Mass/Vol] 0.3 mg/dL Normal 0.3-1.2 [facility] Comment on above: Performed By: #### U CGP #### [address] [address] Ict Programmer: Diego Bashir MD BUN/CRE Ratio 7 Low 9-20 [facility] Comment on above: Performed By: #### U CGP #### [address] [address] Ict Programmer: Diego Bashir MD Calcium [Mass/Vol] 8.9 mg/dL Normal 8.6-10.4 [facility] Comment on above: Performed By: #### U CGP #### [address] [address] Ict Programmer: Diego Bashir MD Chloride [Moles/Vol] 103 mmol/L Normal 98-107 [facility] Comment on above: Performed By: #### U CGP #### [address] [address] Ict Programmer: Diego Bashir MD CO2 [Moles/Vol] 18 mmol/L Low 20-31 [facility] Comment on above: Performed By: #### U CGP #### [address] [address] Ict Programmer: Diego Bashir MD Creatinine [Mass/Vol] 0.42 mg/dL Low 0.50-0.90 [facility] Comment on above: Performed By: #### U CGP #### [email or web address] [address] [place] [address] Ict Programmer: Diego Bashir MD GFR/1.73 sq M.predicted among non-blacks MDRD (S/P/Bld) [Vol rate/Area] mL/min/{1.73_m2} Normal >60 [facility] Comment on above: Result Comment: [...] secretion. Performed By: #### U CGP #### [facility] [employer] [facility] [employer] [address] [place] [address] Ict Programmer: Diego Bashir MD Glucose [Mass/Vol] 76 mg/dL Normal 70-99 [facility] Comment on above: Performed By: #### U CGP #### [email or web address] [address] [place] [address] Ict Programmer: Diego Bashir MD Potassium [Moles/Vol] 3.6 mmol/L Low 3.7-5.3 [facility] Comment on above: Performed By: #### U CGP #### [facility] [employer] [address] [place] [address] Ict Programmer: Diego Bashir MD Protein [Mass/Vol] 6.6 g/dL Normal 6.4-8.3 [facility] Comment on above: Performed By: #### U CGP #### [email or web address] [address] [place] [address] Ict Programmer: Diego Bashir MD Sodium [Moles/Vol] 136 mmol/L Normal 135-144 [facility] Comment on above: Performed By: #### U CGP #### [email or web address] [address] [place] [address] Ict Programmer: Diego Bashir MD Urea nitrogen [Mass/Vol] 3 mg/dL Low 6-20 [facility] Comment on above: Performed By: #### U CGP #### [facility] [address] [place] [address] Ict Programmer: Diego Bashir MD Comprehensive Metabolic P[facility] 09-24-2022 Albumin [Mass/Vol] 3.5 g/dL 3.5 - 5.2 g/dL [facility] Albumin/Globulin [Mass ratio] 1.1 {ratio} 1.0 - 2.5 [facility] ALP [Catalytic activity/Vol] 140 U/L High 35 - 104 U/L [facility] ALT [Catalytic activity/Vol] 8 U/L 5 - 33 U/L [facility] Anion gap [Moles/Vol] 15 mmol/L 9 - 17 mmol/L [facility] AST [Catalytic activity/Vol] 14 U/L NINF - 32 U/L [facility] Bilirubin [Mass/Vol] 0.3 mg/dL 0.3 - 1.2 mg/dL [facility] Calcium [Mass/Vol] 8.9 mg/dL 8.6 - 10.4 mg/dL [facility] Chloride [Moles/Vol] 103 mmol/L 98 - 107 mmol/L [facility] CO2 [Moles/Vol] 18 mmol/L Low 20 - 31 mmol/L [facility] Creatinine [Mass/Vol] 0.42 mg/dL Low 0.50 - 0.90 mg/dL [facility] GFR/1.73 sq M.predicted MDRD (S/P/Bld) [Vol rate/Area] - PINF [facility] Comment on above: These results [...] [Mass/Vol] 76 mg/dL 70 - 99 mg/dL [facility] Interpretation and review of laboratory results Abnormal [facility] Potassium [Moles/Vol] 3.6 mmol/L Low 3.7 - 5.3 mmol/L [facility] Protein [Mass/Vol] 6.6 g/dL 6.4 - 8.3 g/dL [facility] Sodium [Moles/Vol] 136 mmol/L 135 - 144 mmol/L [facility] Urea nitrogen [Mass/Vol] 3 mg/dL Low 6 - 20 mg/dL [facility] Urea nitrogen/Creatinine (Bld) [Mass ratio] 7 Low 9 - 20 [facility] DRUG SCREEN MULTI URINEon Amphetamine Screen, Ur Negative NEGATIVE [facility] Comment on above: (Positive cutoff 1000 ng/mL) Barbiturate Screen, Ur Negative NEGATIVE [facility] Comment on above: (Positive cutoff 200 ng/mL) Benzodiazepine Screen, Urine Negative NEGATIVE [facility] Comment on above: (Positive cutoff 200 ng/mL) Buprenorphine Urine Negative NEGATIVE [facility] Comment on above: (Positive cutoff 5 ng/ml) Cannabinoid Scrn, Ur Negative NEGATIVE [facility] Comment on above: (Positive cutoff 50 ng/mL) Cocaine Metabolite, Urine Negative NEGATIVE [facility] Comment on above: (Positive cutoff 300 ng/mL) Fentanyl, Ur Negative NEGATIVE [facility] Comment on above: (Positive cutoff 5 ng/ml) Methadone Screen, Urine Negative NEGATIVE [facility] Comment on above: (Positive cutoff 300 ng/mL) Opiates, Urine Negative NEGATIVE [facility] Comment on above: (Positive cutoff 300 ng/mL) Oxycodone Screen, Ur Negative NEGATIVE [facility] Comment on above: (Positive cutoff 100 ng/mL) Phencyclidine, Urine Negative NEGATIVE [facility] Comment on above: (Positive cutoff 25 ng/mL) [facility] Drug Scr, Abuse, Uron 2022 Amphetamine(s),Ur Negative Normal NEG [facility] Comment on above: Result Comment: (Positive cutoff 1000 ng/mL) Performed By: #### D AU #### [facility] [address] [place] [address] [place] [address] Ict Programmer: Artem Jones MD Barbiturate(s),Ur Negative Normal NEG [facility] Comment on above: Result Comment: (Positive cutoff 200 ng/mL) Performed By: #### D AU #### [address] [place], [place] [phone] Ict Programmer: Artem Jones MD Benzodiazepine(s) Negative Normal NEG [facility] Comment on above: Result Comment: (Positive cutoff 200 ng/mL) Performed By: #### D AU #### [address] [place], [place] [phone] Ict Programmer: Artem Jones MD Buprenorphrine, Ur Negative Normal NEG [facility] Comment on above: Result Comment: (Positive cutoff 5 ng/ml) Performed By: #### D AU #### [address] [place], [place] [phone] Ict Programmer: Artem Jones MD Cannabinoid(s),Ur Negative Normal NEG [facility] Comment on above: Result Comment: (Positive cutoff 50 ng/mL) Performed By: #### D AU #### [address] [place] [address] Ict Programmer: Artem Jones MD Cocaine Metabolite Negative Normal [facility] Comment on above: Result Comment: (Positive cutoff 300 ng/mL) Performed By: #### D AU #### [facility] [address] [place] [address] Dr[address] [place], [place] [phone] Ict Programmer: Artem Jones MD Fentanyl, Urine Negative Normal NEG [facility] Comment on above: Result Comment: (Positive cutoff 5 ng/ml) Performed By: #### D AU #### [address] [place], [place] [phone] Ict Programmer: Artem Jones MD Methadone Ql (U) Negative Normal NEG [facility] Comment on above: Result Comment: (Positive cutoff 300 ng/mL) Performed By: #### D AU #### [facility] [address] [place] [address] [place] [address] Ict Programmer: Artem Jones MD Opiate(s), Ur Negative Normal NEG [facility] Comment on above: Result Comment: (Positive cutoff 300 ng/mL) Performed By: #### D AU #### [facility] [address] [place] [address] [place] [address] Ict Programmer: Artem Jones MD Oxycodone, Urine Negative Normal NEG [facility] Comment on above: Result Comment: (Positive cutoff 100 ng/mL) Performed By: #### D AU #### [address] [place] [address] Ict Programmer: Artem Jones MD Phencyclidine, Ur Negative Normal [facility] Comment on above: Result Comment: (Positive cutoff 25 ng/mL) Performed By: #### D AU #### [address] [place] [address] Ict Programmer: Artem Jones MD Lactate Dehydrogenaseon 09-14 LDH [Catalytic activity/Vol] 158 U/L Normal 135-214 [facility] Comment on above: Performed By: #### U CGP #### [address] [address] Ict Programmer: Diego Bashir MD Cholesterol in LDL [Mass/Vol] 158 U/L 135 - 214 U/L [facility] Microscopic Urinalysison Bacteria, UA 2+ Abnormal None [facility] Epithelial Cells UA 0 TO 2 [facility] Interpretation and review of laboratory results Abnormal [facility] Mucus, UA TRACE Abnormal None [facility] RBC clumps Auto (Urine sed) [#/Area] 0 TO 2 [facility] WBC, UA 0 TO 2 [facility] No Panel Informationon 09-24 [facility] Protein / Creatinine Ratio, Urineon 09-24-2022 Creatinine, Ur 96.6 mg/dL 28.0 - 217.0 mg/dL [facility] Protein (U) [Mass/Vol] 17 mg/dL [facility] Comment on above: No normal range esta blished. Urine Total Protein Creatinine Ratio 0.18 0.00 - 0.20 [facility] Protein,Tot,[place] Uron 2022 Creatinine [Mass/Vol] 96.6 mg/dL Normal 28.0-217.0 [facility] Comment on above: Performed By: #### P RENAT #### [address] [address] Ict Programmer: Diego Bashir MD [facility] [address] [place] [address] [place] [phone] Ict Programmer: Artem Jones MD Tot Prot. Conc. 17 mg/dL Normal [facility] Comment on above: Result Comment: No n ormal range established. Performed By: #### P RENAT #### [address] [address] Ict Programmer: Diego Bashir MD [facility] [address] [place] [address] Dr. [place] [phone] Ict Programmer: Artem Jones MD TP/Cre Ratio 0.18 Normal 0.00-0.20 [facility] Comment on above: Performed By: #### P RENAT #### [address] [address] Ict Programmer: Diego Bashir MD [facility] [address] [place] [address] Dr. [place] [phone] Ict Programmer: Artem Jones MD TYPE AND SCREENon 09-24-2022 ABO/Rh Positive [facility] Arm Band Number [id number] [facility] Expiration Date 09/27/2022,2359 [facility] Urinalysison 09-24-2022 Bilirubin Urine Negative NEGATIVE [facility] Color, UA Yellow Yellow [facility] Glucose Auto test strip (U) [Mass/Vol] Negative NEGATIVE [facility] Interpretation and review of laboratory results Abnormal [facility] Ketones (U) [Mass/Vol] TRACE Abnormal NEGATIVE [facility] Leukocyte esterase Auto test strip Ql (U) Negative NEGATIVE [facility] Nitrite Auto test strip Ql (U) Negative NEGATIVE [facility] Protein (U) [Mass/Vol] 7.5 mg/dL 5.0 - 9.0 [facility] Protein (U) [Mass/Vol] Negative NEGATIVE [facility] Specific [place], UA 1.010 1.010 - 1.020 [facility] Turbidity UA Clear Clear [facility] Urine Hgb Negative NEGATIVE [facility] Urobilinogen, Urine Normal Normal [facility] Urinalysis, Routineon 2022 Bilirubin, SemiQt,Ur Negative Normal NEG [facility] Comment on above: Performed By: #### U CGP #### [email or web address] [address] [place] [address] Ict Programmer: Diego Bashir MD Blood, Urine Negative Normal NEG [facility] Comment on above: Performed By: #### U CGP #### [email or web address] [address] [place] [address] [phone] Ict Programmer: Diego Bashir MD Clarity (U) Clear Normal CLEAR [facility] Comment on above: Performed By: #### U CGP #### [email or web address] [address] [place] [phone] Ict Programmer: Diego Bashir MD Color (U) Yellow Normal YEL [facility] Comment on above: Performed By: #### U CGP #### [email or web address] [address] [place], [place] [phone] Ict Programmer: Diego Bashir MD Glucose Ql (U) Negative Normal NEG [facility] in Hospital Comment on above: Performed By: #### U CGP #### [address] [address] Ict Programmer: Diego Bashir MD Ketones Ql (U) TRACE Abnormal NEG [facility] Comment on above: Performed By: #### U CGP #### [address] [address] Ict Programmer: Diego Bashir MD Leukocyte esterase Test strip Ql (U) Negative Normal NEG [facility] Comment on above: Performed By: #### U CGP #### [address] [address] Ict Programmer: Diego Bashir MD Nitrite,Ur Negative Normal NEG [facility] Comment on above: Performed By: #### U CGP #### [address] [address] Ict Programmer: Diego Bashir MD PH,Ur 7.5 Normal 5.0-9.0 [facility] Comment on above: Performed By: #### U CGP #### [address] [address] Ict Programmer: Diego Bashir MD Protein Ql (U) Negative Normal NEG [facility] in Hospital Comment on above: Performed By: #### U CGP #### [address] [address] Ict Programmer: Diego Bashir MD Spec. [place],Ur 1.010 Normal 1.010-1.020 [facility] Comment on above: Performed By: #### U CGP #### [address] [address] Ict Programmer: Diego Bashir MD Urobilinogen,Ur Normal Normal NORM [facility] Comment on above: Performed By: #### U CGP #### [address] [address] Ict Programmer: Diego Bashir MD Urinalysis,Microon 3 Bacteria 2+ Abnormal [facility] Comment on above: Performed By: #### U CGP #### [address] [address] Ict Programmer: Diego Bashir MD Epithelial cells LM Ql (Urine sed) 0 TO 2 Normal 0-25 [facility] Comment on above: Performed By: #### U CGP #### [address] [address] Ict Programmer: Diego Bashir MD Mucus Strands TRACE Abnormal [facility] Comment on above: Performed By: #### U CGP #### [address] [address] Ict Programmer: Diego Bashir MD Urine RBC's 0 TO 2 Normal 0-2 [facility] Comment on above: Performed By: #### U CGP #### [address] [address] Ict Programmer: Diego Bashir MD Urine WBC's 0 TO 2 Normal 0-5 [facility] Comment on above: Performed By: #### U CGP #### [address] [address] Ict Programmer: Diego Bashir MD Rule Out Grp.B Strepon 09-18 Rule Out Grp.B Strep Specimen Descriptio n .VAGINA Culture NEGATIVE FOR GROUP B STREPTOCOCCI Report Status FINAL 09/18/2022 Normal [facility] Comment on above: Performed By: #### R OGBS #### [address] [address] Ict Programmer: Diego Bashir MD EVENT MONITORon 09-16-2022 EVENT MON[address]OR [address] [id number] EVENT MONITOR PATIENT NAME: FABIEN PERAZA : 2000 MED REC NO: [id number] ROOM: ACCOUNT NO: [id number] ADMIT DATE: 08/16/2022 PROVIDER: Jade Soto MD [...] CHASITY/JENIFER_SRIDEVIIT Doc#: Unknown CC: ASHELY Padilla Normal [facility] CBCon 09-14-2022 Erythrocyte distribution width (RBC) [Ratio] 14.4 % Normal 11.8-14.4 [facility] Comment on above: Performed By: #### P RENAT #### [place] [address] Ict Programmer: Diego Bashir MD [facility] [address] [place] [address] [place] [address] Ict Programmer: Artem Jones MD Hematocrit (Bld) [Volume fraction] 31.2 % Low 36.3-47.1 [facility] Comment on above: Performed By: #### P RENAT #### [place] [place] [address] Ict Programmer: Diego Bashir MD [facility] [address] [place] [address] [place] [address] Ict Programmer: Artem Jones MD Hemoglobin (Bld) [Mass/Vol] 9.8 g/dL Low 11.9-15.1 [facility] Comment on above: Performed By: #### P RENAT #### [address] [address] Ict Programmer: Diego Bashir MD [address] [place] [address] Ict Programmer: Artem Jones MD MCH (RBC) [Entitic mass] 24.9 pg Low 25.2-33.5 [facility] Comment on above: Performed By: #### P RENAT #### [address] [address] Ict Programmer: Diego Bashir MD [address] [place] [address] Ict Programmer: Artem Jones MD MCHC (RBC) [Mass/Vol] 31.4 g/dL Normal 28.4-34.8 [facility] Comment on above: Performed By: #### P RENAT #### [address] [address] Ict Programmer: Diego Bashir MD [address] [place] [address] Ict Programmer: Artem Jones MD MCV (RBC) [Entitic vol] 79.2 fL Low 82.6-102.9 [facility] Comment on above: Performed By: #### P RENAT #### [address] [address] Ict Programmer: Diego Bashir MD [address] [place] [address] Ict Programmer: Artem Jones MD NRBC Automated 0.0 per 100 WBC Normal 0.0 [facility] Comment on above: Performed By: #### P RENAT #### [address] [address] Ict Programmer: Diego Bashir MD [address] [place] [address] Ict Programmer: Artem Jones MD Platelet mean volume (Bld) [Entitic vol] 8.3 fL Normal 8.1-13.5 [facility] Comment on above: Performed By: #### P RENAT #### [facility] [address] [place] [address] Ict Programmer: Diego Bashir MD [facility] [address] [place] [address] Dr. [place] [id number] Ict Programmer: Artem Jones MD Platelets (Bld) [#/Vol] 267 10*3/uL Normal 138-453 [facility] Comment on above: Performed By: #### P RENAT #### [address] [address] Ict Programmer: Diego Bashir MD [address] [place] [phone] Ict Programmer: Artem Jones MD RBC (Bld) [#/Vol] 3.94 10*6/uL Low 3.95-5.11 [facility] Comment on above: Performed By: #### P RENAT #### [address] [address] Ict Programmer: Diego Bashir MD [address] [place] [id number] Ict Programmer: Artem Jones MD WBC (Bld) [#/Vol] 10.7 10*3/uL Normal 3.5-11.3 [facility] Comment on above: Performed By: #### P RENAT #### [address] [address] Ict Programmer: Diego Bashir MD [address] [place] [id number] Ict Programmer: Artem Jones MD Hematocrit (Bld) [Volume fraction] 31.2 % Low 36.3 - 47.1 % [facility] Hemoglobin (Bld) [Mass/Vol] 9.8 g/dL Low 11.9 - 15.1 g/dL [facility] Interpretation and review of laboratory results Abnormal [facility] MCH (RBC) [Entitic mass] 24.9 pg Low 25.2 - 33.5 pg [facility] MCHC (RBC) [Mass/Vol] 31.4 g/dL 28.4 - 34.8 g/dL [facility] MCV (RBC) [Entitic vol] 79.2 fL Low 82.6 - 102.9 fL [facility] NRBC Automated 0.0 0.0 per 100 WBC [facility] Platelet distribution width (Bld) [Ratio] 14.4 % 11.8 - 14.4 % [facility] Platelet mean volume (Bld) [Entitic vol] 8.3 fL 8.1 - 13.5 fL [facility] Platelets (Bld) [#/Vol] 267 10*3/uL [facility] RBC (Bld) [#/Vol] 3.94 10*6/uL Low 3.95 - 5.11 m/uL [facility] WBC (Bld) [#/Vol] 10.7 10*3/uL [facility] Comp Metabolic Profon 2022 Albumin [Mass/Vol] 3.3 g/dL Low 3.5-5.2 [facility] Comment on above: Performed By: #### P RENAT #### [facility] [address] [place] [address] Ict Programmer: Diego Bashir MD [facility] [address] [place] [address] [place] [address] Ict Programmer: Artem Jones MD Albumin/Glob Ratio 1.0 Normal 1.0-2.5 [facility] Comment on above: Performed By: #### P RENAT #### [facility] [employer] [address] [place] [address] Ict Programmer: Diego Bashir MD [facility] [address] [place], [place] [id number] Ict Programmer: Artem Jones MD Alkaline Phos 124 U/L High 35-104 [facility] Comment on above: Performed By: #### P RENAT #### [facility] [address] [place] [address] Ict Programmer: Diego Bashir MD [facility] [address] [place] [address] Dr. [place] [phone] Ict Programmer: Artem Jones MD ALT [Catalytic activity/Vol] 7 U/L Normal 5-33 [facility] Comment on above: Performed By: #### P RENAT #### [address] [address] Ict Programmer: Diego Bashir MD [facility] [address] [place] [address] Dr. [place] [phone] Ict Programmer: Artem Jones MD Anion gap [Moles/Vol] 11 mmol/L Normal 9-17 [facility] Comment on above: Performed By: #### P RENAT #### [facility] [address] [place] [address] Ict Programmer: Diego Bashir MD [facility] [address] [place] [address] Dr. [place] [phone] Ict Programmer: Artem Jones MD AST [Catalytic activity/Vol] 12 U/L Normal <32 [facility] Comment on above: Performed By: #### P RENAT #### [facility] [address] [place] [address] Ict Programmer: Diego Bashir MD [facility] [address] [place] [address] Dr. [place] [phone] Ict Programmer: Artem Jones MD Bilirubin [Mass/Vol] 0.2 mg/dL Low 0.3-1.2 [facility] Comment on above: Performed By: #### P RENAT #### [address] [address] Ict Programmer: Diego Bashir MD [facility] [address] [place] [address] Dr. [place], [place] [phone] Ict Programmer: Artem Jones MD BUN/CRE Ratio 8 Low 9-20 [facility] Comment on above: Performed By: #### P RENAT #### [facility] [address] [place] [address] Ict Programmer: Diego Bashir MD [facility] [address] [place] [address] Dr. [place], [place] [phone] Ict Programmer: Artem Jones MD Calcium [Mass/Vol] 9.4 mg/dL Normal 8.6-10.4 [facility] Comment on above: Performed By: #### P RENAT #### [address] [address] Ict Programmer: Diego Bashir MD [facility] [address] [place] [address] Dr. [place], [place] [phone] Ict Programmer: Artem Jones MD Chloride [Moles/Vol] 105 mmol/L Normal 98-107 [facility] Comment on above: Performed By: #### P RENAT #### [facility] [address] [place] [address] Ict Programmer: Diego Bashir MD [address] [place], [place] [phone] Ict Programmer: Artem Jones MD CO2 [Moles/Vol] 22 mmol/L Normal 20-31 [facility] Comment on above: Performed By: #### P RENAT #### [facility] [address] [place] [address] Ict Programmer: Diego Bashir MD [facility] [address] [place] [address] Dr. [place], [place] [phone] Ict Programmer: Artem Jones MD Creatinine [Mass/Vol] 0.50 mg/dL Normal 0.50-0.90 [facility] Comment on above: Performed By: #### P RENAT #### [address] [place] [address] Ict Programmer: Diego Bashir MD [address] [place] [address] Ict Programmer: Artem Jones MD GFR/1.73 sq M.predicted among non-blacks MDRD (S/P/Bld) [Vol rate/Area] mL/min/{1.73_m2} Normal >60 [facility] Comment on above: Result Comment: [...] secretion. Performed By: #### P RENAT #### [address] [address] Ict Programmer: Diego Bashir MD [address] [place] [address] Ict Programmer: Artem Jones MD Glucose [Mass/Vol] 108 mg/dL High 70-99 [facility] Comment on above: Performed By: #### P RENAT #### [address] [address] Ict Programmer: Diego Bashir MD [address] [place] [address] Ict Programmer: Artem Jones MD Potassium [Moles/Vol] 3.8 mmol/L Normal 3.7-5.3 [facility] Comment on above: Performed By: #### P RENAT #### [address] [address] Ict Programmer: Diego Bashir MD [address] [place] [address] Ict Programmer: Artem Jones MD Protein [Mass/Vol] 6.5 g/dL Normal 6.4-8.3 [facility] Comment on above: Performed By: #### P RENAT #### [facility] [address] [place] [address] Ict Programmer: Diego Bashir MD [facility] [address] [place] [address] Ict Programmer: Artem Jones MD Sodium [Moles/Vol] 138 mmol/L Normal 135-144 [facility] Comment on above: Performed By: #### P RENAT #### [facility] [address] [place] [address] Ict Programmer: Diego Bashir MD [facility] [address] [place] [address] Ict Programmer: Artem Jones MD Urea nitrogen [Mass/Vol] 4 mg/dL Low 6-20 [facility] Comment on above: Performed By: #### P RENAT #### [facility] [address] [place] [address] Ict Programmer: Diego Bashir MD [facility] [address] [place] [address] [place] [address] Ict Programmer: Artem Jones MD Comprehensive Metabolic P[facility] 09-14-2022 Albumin [Mass/Vol] 3.3 g/dL Low 3.5 - 5.2 g/dL [facility] Albumin/Globulin [Mass ratio] 1.0 {ratio} 1.0 - 2.5 [facility] ALP [Catalytic activity/Vol] 124 U/L High 35 - 104 U/L [facility] ALT [Catalytic activity/Vol] 7 U/L 5 - 33 U/L [facility] Anion gap [Moles/Vol] 11 mmol/L 9 - 17 mmol/L [facility] AST [Catalytic activity/Vol] 12 U/L NINF - 32 U/L [facility] Bilirubin [Mass/Vol] 0.2 mg/dL Low 0.3 - 1.2 mg/dL [facility] Calcium [Mass/Vol] 9.4 mg/dL 8.6 - 10.4 mg/dL [facility] Chloride [Moles/Vol] 105 mmol/L 98 - 107 mmol/L [facility] CO2 [Moles/Vol] 22 mmol/L 20 - 31 mmol/L [facility] Creatinine [Mass/Vol] 0.5 mg/dL 0.50 - 0.90 mg/dL [facility] GFR/1.73 sq M.predicted MDRD (S/P/Bld) [Vol rate/Area] - PINF [facility] Comment on above: These results [...] 108 mg/dL High 70 - 99 mg/dL [facility] Interpretation and review of laboratory results Abnormal [facility] Potassium [Moles/Vol] 3.8 mmol/L 3.7 - 5.3 mmol/L [facility] Protein [Mass/Vol] 6.5 g/dL 6.4 - 8.3 g/dL [facility] Sodium [Moles/Vol] 138 mmol/L 135 - 144 mmol/L [facility] Urea nitrogen [Mass/Vol] 4 mg/dL Low 6 - 20 mg/dL [facility] Urea nitrogen/Creatinine (Bld) [Mass ratio] 8 Low 9 - 20 [facility] Protein / Creatinine Ratio, Urineon 09-14-2022 Creatinine, Ur 110.6 mg/dL 28.0 - 217.0 mg/dL [facility] Protein (U) [Mass/Vol] 13 mg/dL [facility] Comment on above: No normal range esta blished. Urine Total Protein Creatinine Ratio 0.12 0.00 - 0.20 [facility] [employer] Protein,Tot,[place] Uron 2022 Creatinine [Mass/Vol] 110.6 mg/dL Normal 28.0-217.0 [facility] Comment on above: Performed By: #### U RTPRT #### [email or web address] [address] [place], [place] [id number] Ict Programmer: Diego Bashir MD Tot Prot. Conc. 13 mg/dL Normal [facility] Comment on above: Result Comment: No n ormal range established. Performed By: #### U RTPRT #### [facility] [employer] [address] [place], [place] [phone] Ict Programmer: Diego Bashir MD TP/Cre Ratio 0.12 Normal 0.00-0.20 [facility] Comment on above: Performed By: #### U RTPRT #### [email or web address] [address] [place], [place] [id number] Ict Programmer: Diego Bashir MD US OB FOLLOW UP TRANSABDOMIN AL APPROACHon 09-12-2022 US OB FOLLOW UP TRANSABDOMINAL APPROACH Growth Ultrasound ? Viable 35 week, 5 day SIUP EFW= 65% AC>HC Vertex Anterior placenta ELEONORA= 12.8 cm Interpreted by: Arin Blake DO Signed by: Arin Blake DO 09/12/22 Final result Normal [facility] US OB FOLLOW UP TRANSABDOMIN AL APPROACHon 08-29-2022 US OB FOLLOW UP TRANSABDOMINAL APPROACH Growth Ultrasound ? Viable 31 week, 4 day SIUP EFW= 53% Vertex Anterior placenta ELEONORA= 11.5 cm Cx length= 4.1 cm ? Interpreted by: Arin Blake DO Signed by: Arin Blake DO 08/29/22 Final result Normal [facility] CBC with Auto Differentialon 08-25-2022 Absolute Eos # 0.11 [facility] [employer] Absolute Immature Granulocyte 0.10 [facility] Absolute Lymph # 2.10 [facility] Absolute [place] # 0.52 [facility] Basophils (Bld) [#/Vol] 0.04 10*3/uL [facility] Basophils/100 WBC (Bld) 0 % 0 - 2 % [facility] Eosinophils/100 WBC (Bld) 1 % 1 - 4 % [facility] Hematocrit (Bld) [Volume fraction] 33.1 % Low 36.3 - 47.1 % [facility] Hemoglobin (Bld) [Mass/Vol] 10.5 g/dL Low 11.9 - 15.1 g/dL [facility] Immature granulocytes/100 WBC (Bld) 1 % High 0 [facility] Interpretation and review of laboratory results Abnormal [facility] Lymphocytes/100 WBC (Bld) 23 % Low 24 - 43 % [facility] MCH (RBC) [Entitic mass] 25.9 pg 25.2 - 33.5 pg [facility] MCHC (RBC) [Mass/Vol] 31.7 g/dL 28.4 - 34.8 g/dL [facility] MCV (RBC) [Entitic vol] 81.7 fL Low 82.6 - 102.9 fL [facility] Monocytes/100 WBC (Bld) 6 % 3 - 12 % [facility] NRBC Automated 0.0 0.0 per 100 WBC [facility] Platelet distribution width (Bld) [Ratio] 14.4 % 11.8 - 14.4 % [facility] Platelet mean volume (Bld) [Entitic vol] 9.1 fL 8.1 - 13.5 fL [facility] Platelets (Bld) [#/Vol] 301 10*3/uL [facility] RBC (Bld) [#/Vol] 4.05 10*6/uL 3.95 - 5.11 m/uL [facility] RBC (Bld) [#/Vol] MICROCYTOSIS PRESENT [facility] Segmented neutrophils/100 WBC (Bld) 69 % High 36 - 65 % [facility] Segs Absolute 6.28 [facility] WBC (Bld) [#/Vol] 9.2 10*3/uL [facility] CBC with Diffon 08-25-2022 Abs. Basophil 0.04 k/uL Normal 0.00-0.20 [facility] Comment on above: Performed By: #### C DP, GLUSC #### [address] [address] Ict Programmer: Diego Bashir MD Abs.Imm.Granulocyte 0.10 k/uL Normal 0.00-0.30 [facility] Comment on above: Performed By: #### C DP, GLUSC #### [address] [address] Ict Programmer: Diego Bashir MD Abs.Neutrophil (Seg) 6.28 k/uL Normal 1.50-8.10 [facility] Comment on above: Performed By: #### C DP, GLUSC #### [address] [address] Ict Programmer: Diego Bashir MD Basophils/100 WBC (Bld) 0 % Normal 0-2 [facility] Comment on above: Performed By: #### C DP, GLUSC #### [address] [address] Ict Programmer: Diego Bashir MD Eosinophils (Bld) [#/Vol] 0.11 10*3/uL Normal 0.00-0.44 [facility] Comment on above: Performed By: #### C DP, GLUSC #### [address] [address] Ict Programmer: Diego Bashir MD Eosinophils/100 WBC (Bld) 1 % Normal 1-4 [facility] Comment on above: Performed By: #### C DP, GLUSC #### [address] [address] Ict Programmer: Diego Bashir MD Erythrocyte distribution width (RBC) [Ratio] 14.4 % Normal 11.8-14.4 [facility] Comment on above: Performed By: #### C DP, GLUSC #### [address] [address] Ict Programmer: Diego Bashir MD Hematocrit (Bld) [Volume fraction] 33.1 % Low 36.3-47.1 [facility] Comment on above: Performed By: #### C DP, GLUSC #### [address] [address] Ict Programmer: Diego Bashir MD Hemoglobin (Bld) [Mass/Vol] 10.5 g/dL Low 11.9-15.1 [facility] Comment on above: Performed By: #### C DP, GLUSC #### [address] [address] Ict Programmer: Diego Bashir MD Immature granulocytes/100 WBC (Bld) 1 % High 0 [facility] Comment on above: Performed By: #### C DP, GLUSC #### [address] [address] Ict Programmer: Diego Bashir MD Lymphocytes (Bld) [#/Vol] 2.10 10*3/uL Normal 1.10-3.70 [facility] Comment on above: Performed By: #### C DP, GLUSC #### [address] [address] Ict Programmer: Diego Bashir MD Lymphocytes/100 WBC (Bld) 23 % Low 24-43 [facility] Comment on above: Performed By: #### C DP, GLUSC #### [address] [address] Ict Programmer: Diego Bashir MD MCH (RBC) [Entitic mass] 25.9 pg Normal 25.2-33.5 [facility] Comment on above: Performed By: #### C DP, GLUSC #### [address] [address] Ict Programmer: Diego Bashir MD MCHC (RBC) [Mass/Vol] 31.7 g/dL Normal 28.4-34.8 [facility] Comment on above: Performed By: #### C DP, GLUSC #### [address] [address] Ict Programmer: Diego Bashir MD MCV (RBC) [Entitic vol] 81.7 fL Low 82.6-102.9 [facility] Comment on above: Performed By: #### C DP, GLUSC #### [place] [address] Ict Programmer: Diego Bashir MD Monocytes (Bld) [#/Vol] 0.52 10*3/uL Normal 0.10-1.20 [facility] Comment on above: Performed By: #### C DP, GLUSC #### [address] [address] Ict Programmer: Diego Bashir MD Monocytes/100 WBC (Bld) 6 % Normal 3-12 [facility] Comment on above: Performed By: #### C DP, GLUSC #### [place] [address] Ict Programmer: Diego Bashir MD Neutrophil (Seg) 69 % High 36-65 [facility] Comment on above: Performed By: #### C DP, GLUSC #### [address] [address] Ict Programmer: Diego Bashir MD NRBC Automated 0.0 per 100 WBC Normal 0.0 [facility] Comment on above: Performed By: #### C DP, GLUSC #### [address] [place] [address] Ict Programmer: Diego Bashir MD Platelet mean volume (Bld) [Entitic vol] 9.1 fL Normal 8.1-13.5 [facility] Comment on above: Performed By: #### C DP, GLUSC #### [address] [address] Ict Programmer: Diego Bashir MD Platelets (Bld) [#/Vol] 301 10*3/uL Normal 138-453 [facility] Comment on above: Performed By: #### C DP, GLUSC #### [address] [address] Ict Programmer: Diego Bashir MD RBC (Bld) [#/Vol] 4.05 10*6/uL Normal 3.95-5.11 [facility] Comment on above: Performed By: #### C DP, GLUSC #### [address] [address] Ict Programmer: Diego Bashir MD RBC morphology finding Nom (Bld) MICROCYTOSIS PRESENT Normal [facility] Comment on above: Performed By: #### C DP, GLUSC #### [address] [address] Ict Programmer: Diego Bashir MD WBC (Bld) [#/Vol] 9.2 10*3/uL Normal 3.5-11.3 [facility] Comment on above: Performed By: #### C DP, GLUSC #### [address] [address] Ict Programmer: Diego Bashir MD Glucose [place] [address] 2022 Glucose [Mass/Vol] 142 mg/dL High 70-135 [facility] Comment on above: Performed By: #### C DP, GLUSC #### [address] [address] Ict Programmer: Diego Bashir MD Glu Administered via Glucola Normal [facility] Comment on above: Performed By: #### C DP, GLUSC #### [facility] [employer] [address] [place] [address] Ict Programmer: Diego Bashir MD Glucose tolerance, 1 houron 08-25-2022 GLU ADMN Glucola [facility] Glucose tolerance screen 50g 142 mg/dL High 70 - 135 mg/dL [facility] Interpretation and review of laboratory results Abnormal [facility] Echo 2D w doppler w color co mpleteon 08-16-2022 [facility] Transthoracic Echocardiography Report (TTE) Patient Name KARMEN Date of Study 08/16/2022 FABIEN Ovalle Date of 2000 Gender Female Age 21 year(s) Race Room Number Height: 62 inch, 157.48 cm Corporate ID [id number] Weight: 197 pounds, 89.4 kg # Patient Acct [id number] BSA: 1.9 m^2 BMI: 36.03 # kg/m^2 MR # [id number] Certified Dialysis Technician Work,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 Procedure Date Date: 08/16/2022 Start: 08:31 AM Study Location: [facility] Indications:[place] edness. History / Tech. [...] Calculations: LVIDd:4.97 cm(3.7 - 5.6 cm) Diastolic Volume:95.41196 ml LVIDs:3.11 cm(2.2 - 4.0 cm) Systolic [...] velocity:0.13 m/s Lateral Wall E/E':5.26 [facility] Jose A Chandler MD - 08/16/2022 [facility] Transthoracic Echocardiography Report (TTE) Patient Name KARMEN Date of Study 08/16/2022 FABIEN Ovalle Date of 2000 Gender Female Age 21 year(s) Race Room Number Height: 62 inch, 157.48 cm Corporate ID [id number] Weight: 197 pounds, 89.4 kg # Patient Acct [id number] BSA: 1.9 m^2 BMI: 36.03 # kg/m^2 MR # [id number] Certified Dialysis Technician Work,Ashley Interpreting Physician Jose A Chandler Fellow Referring Nurse 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 Interpreting Referring Physician Jade Soto Type of Study TTE procedure:2D Echocardiogram, M-Mode, Doppler, Color Doppler. Procedure Date Date: 08/16/2022 Start: 08:31 AM Study Location: [facility] Indications:Ruben coles. History / Tech. Comments: Dx: [...] Calculations: LVIDd:4.97 cm(3.7 - 5.6 cm) Diastolic Volume:95.13258 ml LVIDs:3.11 cm(2.2 - 4.0 cm) Systolic [...] E' velocity:0.13 m/s Lateral Wall E/E':5.26 [facility] [employer] Work Phone: Echo 2D w doppler w color co mpleteOrdered By: Jose A Chandler on 08-16-2022 [facility] Work Phone: Urinalysison 08-02-2022 Bilirubin Urine Negative NEGATIVE [facility] Color, UA Yellow Yellow [facility] Glucose, Ur Negative NEGATIVE [facility] Interpretation and review of laboratory results Abnormal [facility] Ketones Ql (U) Negative NEGATIVE [facility] [facility] Leukocyte esterase Test strip Ql (U) Negative NEGATIVE [facility] Nitrite, Urine Negative NEGATIVE [facility] pH, UA 7.0 5.0 - 9.0 [facility] Protein, UA Negative NEGATIVE [facility] Specific [place], UA Low 1.010 - 1.020 B [facility] Turbidity UA Clear Clear [facility] Urine Hgb Negative NEGATIVE [facility] Urobilinogen, Urine Normal Normal [facility] Urinalysis, Routineon 2022 Bilirubin, SemiQt,Ur Negative Normal NEG [facility] Comment on above: Performed By: #### U A #### [facility] [address] [place] [address] [place] [address] Ict Programmer: Artem Jones MD Blood, Urine Negative Normal NEG [facility] Comment on above: Performed By: #### U A #### [facility] [address] [place] [address] Dr. [place], [place] [id number] Ict Programmer: Artem Jones MD Clarity (U) Clear Normal CLEAR [facility] Comment on above: Performed By: #### U A #### [facility] [address] [place] [address] Ict Programmer: Artem Jones MD Color (U) Yellow Normal YEL [facility] Comment on above: Performed By: #### U A #### [facility] [address] [place] [address] [place] [address] Ict Programmer: Artem Jones MD Glucose Ql (U) Negative Normal NEG [facility] Comment on above: Performed By: #### U A #### [facility] [address] [place] [address] Dr. [place], [place] [id number] Ict Programmer: Artem Jones MD Ketones Ql (U) Negative Normal NEG [facility] in Hospital Comment on above: Performed By: #### U A #### [facility] [address] [place] [address] Dr. [place], [facility]83 Ict Programmer: Artem Jones MD Leukocyte esterase Test strip Ql (U) Negative Normal NEG [facility] Comment on above: Performed By: #### U A #### [facility] [address] [place] [address] Dr. [place] [id number] Ict Programmer: Artem Jones MD Nitrite,Ur Negative Normal NEG [facility] Comment on above: Performed By: #### U A #### [facility] [address] [place] [address] Dr. [place], [facility]83 Ict Programmer: Artem Jones MD PH,Ur 7.0 Normal 5.0-9.0 [facility] Comment on above: Performed By: #### U A #### [address] [place], [facility]83 Ict Programmer: Artem Jones MD Protein Ql (U) Negative Normal NEG [facility] in Hospital Comment on above: Performed By: #### U A #### [facility] [address] [place] [address] Dr. [place], [facility]83 Ict Programmer: Artem Jones MD Spec. [place],Ur <1.005 Low 1.010-1.020 [facility] Comment on above: Performed By: #### U A #### [facility] [address] [place] [address] [place] [address] Ict Programmer: Artem Jones MD Urobilinogen,Ur Normal Normal NORM [facility] Comment on above: Performed By: #### U A #### [facility] [address] [place] [address] Ict Programmer: Artem Jones MD Cult,Urineon 02-23-2022 Cult,Urine Specimen Description .CLEAN CATCH URINE Culture KLEBSIELLA PNEUMONIAE >[id number] CFU/ML Report Status FINAL 02/23/2022 SUSCEPTIBILITY Organism [...] <=20 SUSCEPTIBLE Piperacillin/Tazobact am <=4 SUSCEPTIBLE Susceptible [facility] Comment on above: Performed By: #### U RC #### [address] [id number] Ict Programmer: Diego Bashir MD [address] [place] [address] Ict Programmer: Artem Jones MD Chlamydia/GC DNA, Uron 02-22 Chlamydia Probe, Ur Negative Normal NEG [facility] Comment on above: Result Comment: [...] target. Performed By: #### U CGP #### [facility] [employer] [address] [place] [address] Ict Programmer: Diego Bashir MD Gonorrhea Probe, Ur Negative Normal NEG [facility] Comment on above: Result Comment: [...] target. Performed By: #### U CGP #### [address] [address] Ict Programmer: Diego Bashir MD HIV Ag/Abon 02-22-2022 HIV Ag/Ab Non-Reactive Normal [facility] Comment on above: Result Comment: No l aboratory evidence of HIV infection. If acute HIV infection is suspected, consider testing for HIV-1 RNA. Performed By: #### H IVCMB, AHCV #### [address] [address] Ict Programmer: Diego Bashir MD Hep C Abon 02-22-2022 Hep C Ab Non-Reactive Normal [facility] Comment on above: Result Comment: The hepatitis [...] Performed By: #### H IVCMB, AHCV #### [address] [address] Ict Programmer: Diego Bashir MD Profileon 2 T.pallidum Ab Screen Non-Reactive Normal [facility] Comment on above: Result Comment: T. pallidum antibodies are not detected. There is no serological evidence of infection with T. pallidum (early primary syphilis cannot be excluded). Retest in 2-4 weeks if syphilis is clinically suspect. Performed By: #### P RENAT #### [address] [address] Ict Programmer: Diego Bashir MD [facility] [address] [place] [address] [place] [address] Ict Programmer: Artem Jones MD Hep B Surf Ag Non-Reactive Normal NR [facility] Comment on above: Performed By: #### P RENAT #### [facility] [employer] [address] [place], [place] [id number] Ict Programmer: Diego Bashir MD [facility] [address] [place] [address] [place] [address] Ict Programmer: Artem Jones MD Rubella Ab, IgG 67.8 IU/mL Normal [facility] Comment on above: Result Comment: REFERENCE RANGE: <5.0 NON-REACTIVE (non-immune) 5.0 TO 9.9 EQUIVOCAL >=10.0 REACTIVE (immune) Performed By: #### P RENAT #### [place] [address] [place], [place] [id number] Ict Programmer: Diego Bashir MD [facility] [address] [place], [place] [address] [address] Ict Programmer: Artem Jones MD Profile Ion 022 Absolute Eos # 0.10 [facility] Absolute Immature Granulocyte 0.05 [facility] Absolute Lymph # 2.73 [facility] Absolute [place] # 0.69 [facility] Basophils (Bld) [#/Vol] 0.07 10*3/uL [facility] Basophils/100 WBC (Bld) 1 % 0 - 2 % [facility] Eosinophils/100 WBC (Bld) 1 % 1 - 4 % [facility] Hematocrit (Bld) [Volume fraction] 37.3 % 36.3 - 47.1 % [facility] Hemoglobin (Bld) [Mass/Vol] 12.2 g/dL 11.9 - 15.1 g/dL [facility] Hepatitis B Surface Ag Non-Reactive NONREACTIVE [facility] Immature granulocytes/100 WBC (Bld) 1 % High 0 [facility] Interpretation and review of laboratory results Abnormal [facility] Lymphocytes/100 WBC (Bld) 28 % 24 - 43 % [facility] MCH (RBC) [Entitic mass] 28.0 pg 25.2 - 33.5 pg [facility] MCHC (RBC) [Mass/Vol] 32.7 g/dL 28.4 - 34.8 g/dL [facility] MCV (RBC) [Entitic vol] 85.7 fL 82.6 - 102.9 fL [facility] Monocytes/100 WBC (Bld) 7 % 3 - 12 % [facility] NRBC Automated 0.0 0.0 per 100 WBC [facility] Platelet distribution width (Bld) [Ratio] 12.7 % 11.8 - 14.4 % [facility] Platelet mean volume (Bld) [Entitic vol] 9.3 fL 8.1 - 13.5 fL [facility] Platelets (Bld) [#/Vol] 300 10*3/uL [facility] RBC (Bld) [#/Vol] 4.35 10*6/uL 3.95 - 5.11 m/uL [facility] Rubella virus IgG Ql (S) 67.8 IU/mL [facility] Comment on above: REFERENCE RANGE: <5.0 NON-REACTIVE (non-immune) 5.0 TO 9.9 EQUIVOCAL >=10.0 REACTIVE (immune) Segmented neutrophils/100 WBC (Bld) 62 % 36 - 65 % [facility] Segs Absolute 6.09 [facility] T. pallidum, IgG Non-Reactive NONREACTIVE [facility] Comment on above: T. pallidum antibodies are not detected. There is no serological evidence of infection with T. pallidum (early primary syphilis cannot be excluded). Retest in 2-4 weeks if syphilis is clinically suspect. WBC (Bld) [#/Vol] 9.7 10*3/uL [facility] HIV Screenon 02-21-2022 HIV Ag/Ab Non-Reactive NONREACTIVE [facility] Comment on above: No laboratory eviden ce of HIV infection. If acute HIV infection is suspected, consider testing for HIV-1 RNA. [facility] Hepatitis C Antibodyon 02-21 Hepatitis C Ab Non-Reactive NONREACTIVE [facility] Comment on above: The hepatitis C procedure [...] recommended by ordering HCV RNA by PCR. [facility] TYPE AND SCREENon 0 02-21-2022 ABO/Rh Positive [facility] Profileon 2 Abs. Basophil 0.07 k/uL Normal 0.00-0.20 [facility] Comment on above: Performed By: #### P RENAT #### [address] [address] Ict Programmer: Diego Bashir MD [facility] [address] [place] [address] Dr[address] [place] [id number] Ict Programmer: Artem Jones MD Abs.Imm.Granulocyte 0.05 k/uL Normal 0.00-0.30 [facility] Comment on above: Performed By: #### P RENAT #### [address] [address] Ict Programmer: Diego Bashir MD [address] [place] [id number] Ict Programmer: Artem Jones MD Abs.Neutrophil (Seg) 6.09 k/uL Normal 1.50-8.10 [facility] Comment on above: Performed By: #### P RENAT #### [address] [address] Ict Programmer: Diego Bashir MD [facility] [address] [place] [address] [place] [address] Ict Programmer: Artem Jones MD Basophils/100 WBC (Bld) 1 % Normal 0-2 [facility] Comment on above: Performed By: #### P RENAT #### [address] [address] Ict Programmer: Diego Bashir MD [address] [place] [id number] Ict Programmer: Artem Jones MD Eosinophils (Bld) [#/Vol] 0.10 10*3/uL Normal 0.00-0.44 [facility] Comment on above: Performed By: #### P RENAT #### [address] [address] Ict Programmer: Diego Bashir MD [address] [place] [phone] Ict Programmer: Artem Jones MD Eosinophils/100 WBC (Bld) 1 % Normal 1-4 [facility] Comment on above: Performed By: #### P RENAT #### [address] [address] Ict Programmer: Diego Bashir MD [address] [place] [phone] Ict Programmer: Artem Jones MD Erythrocyte distribution width (RBC) [Ratio] 12.7 % Normal 11.8-14.4 [facility] Comment on above: Performed By: #### P RENAT #### [address] [address] Ict Programmer: Diego Bashir MD [address] [place] [id number] Ict Programmer: Artem Jones MD Hematocrit (Bld) [Volume fraction] 37.3 % Normal 36.3-47.1 [facility] Comment on above: Performed By: #### P RENAT #### [address] [address] Ict Programmer: Diego Bashir MD [address] [place] [phone] Ict Programmer: Artem Jones MD Hemoglobin (Bld) [Mass/Vol] 12.2 g/dL Normal 11.9-15.1 [facility] Comment on above: Performed By: #### P RENAT #### [address] [place] [address] Ict Programmer: Diego Bashir MD [facility] [address] [place] [address] [place] [address] Ict Programmer: Artem Jones MD Immature granulocytes/100 WBC (Bld) 1 % High 0 [facility] Comment on above: Performed By: #### P RENAT #### [address] [address] Ict Programmer: Diego Bashir MD [facility] [address] [place] [address] Dr. [place] [phone] Ict Programmer: Artem Jones MD Lymphocytes (Bld) [#/Vol] 2.73 10*3/uL Normal 1.10-3.70 [facility] Comment on above: Performed By: #### P RENAT #### [address] [address] Ict Programmer: Diego Bashir MD [facility] [address] [place] [address] [place] [address] Ict Programmer: Artem Jones MD Lymphocytes/100 WBC (Bld) 28 % Normal 24-43 [facility] Comment on above: Performed By: #### P RENAT #### [address] [address] Ict Programmer: Diego Bashir MD [facility] [address] [place] [address] [place] [address] Ict Programmer: Artem Jones MD MCH (RBC) [Entitic mass] 28.0 pg Normal 25.2-33.5 [facility] Comment on above: Performed By: #### P RENAT #### [address] [address] Ict Programmer: Diego Bashir MD [facility] [address] [place] [address] Dr. [place], [place] [phone] Ict Programmer: Artem Jones MD MCHC (RBC) [Mass/Vol] 32.7 g/dL Normal 28.4-34.8 [facility] Comment on above: Performed By: #### P RENAT #### [address] [address] Ict Programmer: Diego Bashir MD [address] [place] [phone] Ict Programmer: Artem Jones MD MCV (RBC) [Entitic vol] 85.7 fL Normal 82.6-102.9 [facility] Comment on above: Performed By: #### P RENAT #### [address] [address] Ict Programmer: Diego Bashir MD [address] [place] [phone] Ict Programmer: Artem Jones MD Monocytes (Bld) [#/Vol] 0.69 10*3/uL Normal 0.10-1.20 [facility] Comment on above: Performed By: #### P RENAT #### [address] [address] Ict Programmer: Diego Bashir MD [address] [place] [phone] Ict Programmer: Artem Jones MD Monocytes/100 WBC (Bld) 7 % Normal 3-12 [facility] Comment on above: Performed By: #### P RENAT #### [address] [address] Ict Programmer: Diego Bashir MD [address] [place], [place] [id number] Ict Programmer: Artem Jones MD Neutrophil (Seg) 62 % Normal 36-65 [facility] Comment on above: Performed By: #### P RENAT #### [address] [address] Ict Programmer: Diego Bashir MD [facility] [address] [place] [address] [place] [address] Ict Programmer: Artem Jones MD NRBC Automated 0.0 per 100 WBC Normal 0.0 [facility] Comment on above: Performed By: #### P RENAT #### [address] [address] Ict Programmer: Diego Bashir MD [facility] [address] [place] [address] [place] [address] Ict Programmer: Artem Jones MD Platelet mean volume (Bld) [Entitic vol] 9.3 fL Normal 8.1-13.5 [facility] Comment on above: Performed By: #### P RENAT #### [address] [address] Ict Programmer: Diego Bashir MD [facility] [address] [place] [address] [place] [address] Ict Programmer: Artem Jones MD Platelets (Bld) [#/Vol] 300 10*3/uL Normal 138-453 [facility] Comment on above: Performed By: #### P RENAT #### [address] [address] Ict Programmer: Diego Bashir MD [facility] [address] [place] [address] Dr. [place] [phone] Ict Programmer: Artem Jones MD RBC (Bld) [#/Vol] 4.35 10*6/uL Normal 3.95-5.11 [facility] Comment on above: Performed By: #### P RENAT #### [address] [address] Ict Programmer: Diego Bashir MD [facility] [address] [place] [address] Dr. [place], [place] [phone] Ict Programmer: Artem Jones MD WBC (Bld) [#/Vol] 9.7 10*3/uL Normal 3.5-11.3 [facility] Comment on above: Performed By: #### P RENAT #### [address] [address] Ict Programmer: Diego Bashir MD [facility] [address] [place] [address] Dr. [place] [phone] Ict Programmer: Artem Jones MD Type + Scrnon 02-21 Type + Scrn Negative Normal [facility] Comment on above: Performed By: #### P RTYS #### [address] [place], [facility]83 Ict Programmer: Artem Jones MD Toxicology Scree, Urineon Amphetamine(s),Ur Negative Normal NEG [facility] Comment on above: Performed By: #### U CGP #### [address] [address] Ict Programmer: Diego Bashir MD Barbiturate(s),Ur Negative Normal NEG [facility] Comment on above: Performed By: #### U CGP #### [address] [address] Ict Programmer: Diego Bashir MD Benzodiazepine(s) Negative Normal NEG [facility] Comment on above: Performed By: #### U CGP #### [address] [address] Ict Programmer: Diego Bashir MD Buprenorphrine, Ur Negative Normal NEG [facility] Comment on above: Performed By: #### U CGP #### [address] [address] Ict Programmer: Diego Bashir MD Cannabinoid(s),Ur Negative Normal NEG [facility] Comment on above: Performed By: #### U CGP #### [facility] [address] [place] [address] Ict Programmer: Diego Bashir MD Cocaine Metabolite Negative Normal [facility] Comment on above: Performed By: #### U CGP #### [facility] [address] [place] [address] Ict Programmer: Diego Bashir MD Methadone Negative Normal [facility] Comment on above: Performed By: #### U CGP #### [address] [address] Ict Programmer: Diego Bashir MD Methamphetamine, Ur Negative Normal [facility] Comment on above: Performed By: #### U CGP #### [address] [address] Ict Programmer: Diego Bashir MD Opiate(s), Ur Negative Normal [facility] Comment on above: Performed By: #### U CGP #### [address] [address] Ict Programmer: Diego Bashir MD Oxycodone, Urine Negative Normal [facility] Comment on above: Performed By: #### U CGP #### [address] [address] Ict Programmer: Diego Bashir MD Phencyclidine, Ur Negative Normal [facility] Comment on above: Performed By: #### U CGP #### [address] [address] Ict Programmer: Diego Bashir MD Propoxyphene,Urine Negative Normal [facility] Comment on above: Performed By: #### U CGP #### [address] [address] Ict Programmer: Diego Bashir MD Tricyclic Antidepressants Negative Normal NEG [facility] Comment on above: Result Comment: Drug screen results are to be used for medical purposes only. All positive results are unconfirmed. Testing for employment or legal uses should be sent to a reference laboratory for confirmation. Performed By: #### U [facility] #### [facility] [employer] [address] [place] [address] Ict Programmer: Diego Bashir MD Urine Drug Screen, Chad coelloe 02-21-2022 Amphetamine Screen, Ur Negative NEGATIVE [facility] Barbiturate Screen, Ur Negative NEGATIVE [facility] Benzodiazepine Screen, Urine Negative NEGATIVE [facility] Buprenorphine Urine Negative NEGATIVE [facility] Cannabinoid Scrn, Ur Negative NEGATIVE [facility] Cocaine Metabolite, Urine Negative NEGATIVE [facility] Methadone Screen, Urine Negative NEGATIVE [facility] Methamphetamine, Urine Negative NEGATIVE [facility] Opiates, Urine Negative NEGATIVE [facility] Oxycodone Screen, Ur Negative NEGATIVE [facility] Phencyclidine, Urine Negative NEGATIVE [facility] Propoxyphene, Urine Negative NEGATIVE [facility] Tricyclic Antidepressants, Urine Negative NEGATIVE [facility] Comment on above: Drug screen results are to be used for medical purposes only. All positive results are unconfirmed. Testing for employment or legal uses should be sent to a reference laboratory for confirmation. [facility] TILT TABLE TESTon 01-26-2022 TILT TABLE TEST [address] [id number] TILT TABLE TEST PATIENT NAME: FABIEN PERAZA : 2000 MED REC NO: [id number] ROOM: ACCOUNT NO: [id number] ADMIT DATE: 01/25/2022 PROVIDER: Jade Soto MD [...] up with their primary care physician and/or blacksmith assistant as previously scheduled. STUDY CONCLUSIONS: Abnormal head [...] MD CHASITY/DARCY_JEMMA Doc#: Unknown CC: Nick Quiñones, [employer]ITY INSTRUCTOR [facility] Basic Metabolic Panelon 06-3 Anion gap [Moles/Vol] 11 mmol/L 9 - 17 mmol/L [facility] Calcium [Mass/Vol] 9.6 mg/dL 8.6 - 10.4 mg/dL [facility] Chloride [Moles/Vol] 104 mmol/L 98 - 107 mmol/L [facility] CO2 [Moles/Vol] 24 mmol/L 20 - 31 mmol/L [facility] Creatinine [Mass/Vol] 0.74 mg/dL 0.50 - 0.90 mg/dL [facility] GFR >60 >60 mL/min [facility] GFR Non- >60 >60 mL/min [facility] Glucose [Mass/Vol] 91 mg/dL 70 - 99 mg/dL [facility] Potassium [Moles/Vol] 4.0 mmol/L 3.7 - 5.3 mmol/L [facility] Sodium [Moles/Vol] 139 mmol/L 135 - 144 mmol/L [facility] Urea nitrogen (BldV) [Mass/Vol] 14 mg/dL 6 - 20 mg/dL [facility] Urea nitrogen/Creatinine (Bld) [Mass ratio] 19 [facility] Basic Metabolic Profon 01-13 (cont.) Normal [facility] Comment on above: Result Comment: Aver age GFR for 20-29 years old: 116 mL/min/1.73sq m Chronic Kidney Disease: <60 mL/min/1.73sq m Kidney failure: <15 mL/min/1.73sq m eGFR calculated using average adult body mass. Additional eGFR calculator available at: http://www.[employer]/multiple_crcl_2011.htm Performed By: #### B RIC, CBC #### [facility] [address] [place] [address] Ict Programmer: Artem Jones MD Anion gap [Moles/Vol] 11 mmol/L Normal -17 [facility] Comment on above: Performed By: #### B RIC, CBC #### [facility] [address] [place] [address] Ict Programmer: Artem Jones MD BUN/CRE Ratio 19 Normal 9-20 [facility] Comment on above: Performed By: #### B MP, CBC #### [facility] [address] [place] [address] Ict Programmer: Artem Jones MD Calcium [Mass/Vol] 9.6 mg/dL Normal 8.6-10.4 [facility] Comment on above: Performed By: #### B MP, CBC #### [facility] [address] [place], [place] [id number] Ict Programmer: Artem Jones MD Chloride [Moles/Vol] 104 mmol/L Normal 98-107 [facility] Comment on above: Performed By: #### B MP, CBC #### [facility] [address] [place], [place] [id number] Ict Programmer: Artem Jones MD CO2 [Moles/Vol] 24 mmol/L Normal 20-31 [facility] Comment on above: Performed By: #### B MP, CBC #### [facility] [address] [place], [place] 3923383 Ict Programmer: Artem Jones MD Creatinine [Mass/Vol] 0.74 mg/dL Normal 0.50-0.90 [facility] Comment on above: Performed By: #### B MP, CBC #### [facility] [address] [place], [place] [id number] Ict Programmer: Artem Jones MD GFR, Amer >60 Normal >60 [facility] Comment on above: Performed By: #### B MP, CBC #### [facility] [address] [place], [place] [id number] Ict Programmer: Artem Jones MD GFR,non Amer >60 Normal >60 [facility] Comment on above: Performed By: #### B MP, CBC #### [facility] [address] [place] [address] Ict Programmer: Artem Jones MD Glucose [Mass/Vol] 91 mg/dL Normal 70-99 [facility] Comment on above: Performed By: #### B MP, CBC #### [facility] [address] [place] [address] Ict Programmer: Artem Jones MD Potassium [Moles/Vol] 4.0 mmol/L Normal 3.7-5.3 [facility] Comment on above: Performed By: #### B MP, CBC #### [facility] [address] [place] [address] Ict Programmer: Artem Jones MD Sodium [Moles/Vol] 139 mmol/L Normal 135-144 [facility] Comment on above: Performed By: #### B RIC, CBC #### [facility] [address] [place] [address] Ict Programmer: Artem Jones MD Staging: Normal [facility] Comment on above: Result Comment: Stag e 1: Some kidney damage normal GFR Stage 2: Mild kidney damage GFR 60-89 Stage 3: Moderate kidney damage GFR 30-59 Stage 4: Severe kidney damage GFR 15-29 Stage 5: Severe kidney damage GFR <15 ESRD - chronic treatment by dialysis or transplant Performed By: #### B MP, CBC #### [address] [place] [address] Ict Programmer: Artem Jones MD Urea nitrogen [Mass/Vol] 14 mg/dL Normal 6-20 [facility] Comment on above: Performed By: #### B MP, CBC #### [facility] [address] [place] [address] Ict Programmer: Artem Jones MD CBCon 01-13-2022 Erythrocyte distribution width (RBC) [Ratio] 12.4 % Normal 11.8-14.4 [facility] Comment on above: Performed By: #### B RIC, CBC #### [facility] [address] [place] [address] Ict Programmer: Artem Jones MD Hematocrit (Bld) [Volume fraction] 39.7 % Normal 36.3-47.1 [facility] Comment on above: Performed By: #### B MP, CBC #### [facility] [address] [place], [place] [address] Ict Programmer: Artem Jones MD Hemoglobin (Bld) [Mass/Vol] 13.0 g/dL Normal 11.9-15.1 [facility] Comment on above: Performed By: #### B MP, CBC #### [address] [place] [address] Ict Programmer: Artem Jones MD MCH (RBC) [Entitic mass] 27.7 pg Normal 25.2-33.5 [facility] Comment on above: Performed By: #### B MP, CBC #### [address] [place] [id number] Ict Programmer: Artem Jones MD MCHC (RBC) [Mass/Vol] 32.7 g/dL Normal 28.4-34.8 [facility] Comment on above: Performed By: #### B MP, CBC #### [address] [place] [address] Ict Programmer: Artem Jones MD MCV (RBC) [Entitic vol] 84.6 fL Normal 82.6-102.9 [facility] Comment on above: Performed By: #### B MP, CBC #### [address] [place] [address] Ict Programmer: Artem Jones MD NRBC Automated 0.0 per 100 WBC Normal 0.0 [facility] Comment on above: Performed By: #### B MP, CBC #### [facility] [address] [place] [address] Ict Programmer: Artem Jones MD Platelet mean volume (Bld) [Entitic vol] 9.1 fL Normal 8.1-13.5 [facility] Comment on above: Performed By: #### B MP, CBC #### [facility] [address] [place] [address] Ict Programmer: Artem Jones MD Platelets (Bld) [#/Vol] 275 10*3/uL Normal 138-453 [facility] Comment on above: Performed By: #### B MP, CBC #### [facility] [address] [place] [address] Ict Programmer: Artem Jones MD RBC (Bld) [#/Vol] 4.69 10*6/uL Normal 3.95-5.11 [facility] Comment on above: Performed By: #### B MP, CBC #### [facility] [address] [place], [facility] Ict Programmer: Artem Jones MD WBC (Bld) [#/Vol] 8.2 10*3/uL Normal 3.5-11.3 [facility] Comment on above: Performed By: #### B MP, CBC #### [facility] [address] [place] [address] Ict Programmer: Artem Jones MD Hematocrit (Bld) [Volume fraction] 39.7 % 36.3 - 47.1 % [facility] Hemoglobin (Bld) [Mass/Vol] 13.0 g/dL 11.9 - 15.1 g/dL [facility] MCH (RBC) [Entitic mass] 27.7 pg 25.2 - 33.5 pg [facility] MCHC (RBC) [Mass/Vol] 32.7 g/dL 28.4 - 34.8 g/dL [facility] MCV (RBC) [Entitic vol] 84.6 fL 82.6 - 102.9 fL [facility] NRBC Automated 0.0 0.0 per 100 WBC [facility] Platelet distribution width (Bld) [Ratio] 12.4 % 11.8 - 14.4 % [facility] Platelet mean volume (Bld) [Entitic vol] 9.1 fL 8.1 - 13.5 fL [facility] Platelets (Bld) [#/Vol] 275 10*3/uL [facility] RBC (Bld) [#/Vol] 4.69 10*6/uL 3.95 - 5.11 m/uL [facility] WBC (Bld) [#/Vol] 8.2 10*3/uL [facility] Laboratory - Chemistry and C hemistry - challengeon 01-13-2022 GFR/1.73 sq M.predicted MDRD (S/P/Bld) [Vol rate/Area] [facility] Comment on above: Average GFR for 20-2 9 years old: 116 mL/min/1.73sq m Chronic Kidney Disease: <60 mL/min/1.73sq m Kidney failure: <15 mL/min/1.73sq m eGFR calculated using average adult body mass. Additional eGFR calculator available at: http://www.[employer]/multiple_crcl_2012.htm Stage 1: Some kidney damage normal GFR Stage 2: Mild kidney damage GFR 60-89 Stage 3: Moderate kidney damage GFR 30-59 Stage 4: Severe kidney damage GFR 15-29 Stage 5: Severe kidney damage GFR <15 ESRD - chronic treatment by dialysis or transplant PROGRESSon 10-12-2017 [facility] NOTES Normal [facility] PROGRESSon 09-21-2017 [facility] NOTES Normal [facility] Vital Signs Date Time Vital Sign Value Performing Clinician Faci lity 09-26-2022 08:16-0400 Body temperature 98.1 [degF] Zak Bejarano MD Work Phone: [facility] 09-26-2022 08:16-0400 Diastolic blood pressure 80 mm[Hg] Zak Bejarano MD Work Phone: [facility] 09-26-2022 08:16-0400 Heart rate 81 /min Zak Bejarano MD Work Phone: [facility] [employer] 09-26-2022 08:16-0400 Respiratory rate 16 /min Zak Bejarano MD Work Phone: [facility] [employer] 09-26-2022 08:16-0400 Systolic blood pressure 130 mm[Hg] Zak Bejarano MD Work Phone: [facility] [employer] 09-25-2022 08:04-0400 SaO2% (BldA) [Mass fraction] 99 % Zak Bejarano MD Work Phone: [facility] [employer] 08-02-2022 18:01-0500 Body height 157.5 cm Pete Sol APRN - CNAlison Work Phone: [facility] [employer] 08-02-2022 18:01-0500 Body mass index (BMI) [Ratio] 35.85 kg/m2 Pete Sol APRN - CNAlison Work Phone: [facility] [employer] 08-02-2022 18:01-0500 Body weight 88.91 kg Pete Holt CNM Work Phone: [facility] [employer] 08-02-2022 17:37-0500 Diastolic blood pressure 70 mm[Hg] Pete Sol APRN - CURTIS Work Phone: [facility] [employer] 08-02-2022 17:37-0500 Heart rate 93 /min Pete Holt CNM Work Phone: [facility] [employer] 08-02-2022 17:37-0500 Respiratory rate 18 /min Pete Sol APRN - CNAlison Work Phone: [employer] 08-02-2022 17:37-0500 Systolic blood pressure 118 mm[Hg] Pete Holt CNAlison Work Phone: [facility] [employer] 08-02-2022 17:17-0500 Body temperature 97.9 [degF] Pete Holt CNAlison Work Phone: [employer] 01-14-2020 10:40-0400 BMI (Body Mass Index) 30.2 kg/m2 [facility] Work Phone: 01-14-2020 10:40-0400 Body weight 74.84 kg [facility] Work Phone: 01-14-2020 10:40-0400 BSA (Body Surface Area) 1.76 m2 [facility] Work Phone: 01-14-2020 10:40-0400 Height 157.48 cm [facility] Work Phone: Encounters Encounter Date Encounter [...] of inpatient Zak Bejarano MD Work Phone: [facility] Labor and Delivery Start: 09-14-2022 End: 09-15-2022 ambulatory NICK [facility] Start: 09-14-2022 End: 09-14-2022 Subsequent hospital visit by physician Nick Quiñones WHIZZER - [employer] IN[employer] Work Phone: [facility] DOCTOR Comment on above: 36 weeks gestation o f Start: 09-14-2022 End: 09-14-2022 [facility]ulatory [facility] [place] [facility] Start: 09-14-2022 End: 09-14-2022 Subsequent hospital visit by physician Nick Quiñones APRN - LIONEL Work Phone: [facility] Laboratory Comment on above: Elevated blood press ure affecting , antepartum Start: 09-08-2022 End: 09-08-2022 ambulatory ADITYA [facility] [place] [facility] Start: 08-25-2022 End: 08-26-2022 ambulatory JACQUI [facility] Start: 08-25-2022 End: 08-25-2022 Subsequent hospital visit by physician Nick Quiñones APRN - LIONEL Work Phone: [facility] and ACCESS DATABASE DEVELOPER Comment on above: Encounter for superv ision of normal first in second trimester Start: 08-16-2022 End: 08-17-2022 ambulatory [facility] [place] [facility] Start: 08-16-2022 End: 08-16-2022 Subsequent hospital visit by physician [facility] Echo Room [facility] Echocardiography Comment on above: Light headedness; POTS (postural orthostatic tachycardia syndrome); Abnormal tilt table test Light headedness; POTS (postural orthostatic tachycardia syndrome); Abnormal tilt table test; 29 weeks gestation of ; Chest pain, unspecified type Start: 08-02-2022 End: 08-02-2022 ambulatory [facility] [place] [facility] Start: 08-02-2022 End: 08-02-2022 Subsequent hospital visit by physician Pete Sol APRN - CURTIS Work Phone: [facility] Labor and Delivery Start: 02-21-2022 End: 02-22-2022 [facility] Start: 02-21-2022 End: 02-21-2022 Subsequent hospital visit by physician Nick Quiñones APRN - LIONEL Work Phone: [facility] Laboratory Comment on above: Encounter for superv ision of normal , antepartum, unspecified ; Positive urine test Start: 01-25-2022 End: 01-26-2022 ambulatory NICK [facility] Start: 01-25-2022 End: 01-25-2022 Subsequent hospital visit by physician [facility] EKG Comment on above: Heart palpitations Start: 01-13-2022 End: 01-14-2022 ambulatory NICK [facility] Start: 01-13-2022 End: 01-13-2022 Subsequent hospital visit by physician Nick Quiñones WHIZZER - [employer] SECURITY INSTRUCTOR Work Phone: [facility] Laboratory Comment on above: Heart palpitations Start: 03-15-2021 End: 03-15-2021 Patient encounter procedure Cari Toribio MD [facility] Laboratory Start: 03-15-2021 End: 03-15-2021 Subsequent hospital visit by physician Cari Toribio MD [facility] Laboratory Comment on above: Women's annual routi ne gynecological examination Start: 01-14-2020 End: 01-14-2020 Patient encounter procedure Meir Silva Work Phone: [facility] Work Phone: Start: 01-14-2020 End: 01-14-2020 Telemedicine consultation with patient Radha Cuevas Work Phone: [facility] Work Phone: Start: 10-12-2017 [facility] Start: 09-21-2017 [facility] Procedures Date Procedure Procedure Detail Performing [...] End: 09-14-2022 Comprehensive metabolic panel Elizabeth Galvez WHIZZER - [facility] Work Phone: Start: 08-25-[address] gtt 3 specimens Jacqui Russell WHIZZER - CN Work Phone: Start: 08-16-2022 Echo tthrc r-t 2d w/wom-mode compl spec&colr d Jade Soto MD Work Phone: Start: 08-02-2022 Urnls dip stick/tabl et rgnt auto w/o microscopy Pete Guillenbhavik Sol WHIZZER - [facility] Work Phone: Start: 02-21-2022 Antibody screen Nick Stephanei WHIZZER [employer] [facility] Work Phone: Start: 02-21-2022 End: 02-21-2022 Antibody hiv-1&hiv-2 single result Pete Jacob Sol WHIZZER - [facility] Work Phone: Start: 02-21-2022 Drug screen, qualitate/multi Pete Jacob Ebenezer WHIZZER - CN Work Phone: Start: 01-13-2022 Basic metabolic pane l calcium total Nick Quiñones WHIZZER - [facility] Work Phone: Start: 03-15-2021 Microscopic observat ion [Identifier] in Cervix by Cyto stain Nick Stephanie WHIZZER - [facility] Work Phone: Start: 01-14-2020 [employer] [employer] Gertrude e Faith NEGATED: Highlighted row has not occurred!Start: 01-14-2020 reported prior surgical / procedural history Radha Cuevas Plan of Treatment Date Care Activity Detail Author Start: 03-15-2024 Screening for malignant neoplasm of cervix Pap smear [facility] [email or web address] [facility] Start: 05-09-2023 Depression Screen Depression Screen [facility] Start: 05-09-2023 Influenza vaccination [facility] Comment on above: Postponed from 02/14/2022 (Patient Refus ed) Start: 02-21-2023 Screening for Chlamydia trachomatis Chlamydia/GC screen [facility] Start: 02-03-2023 Depression Screen Depression Screen [facility] Start: 01-13-2023 COVID-19 Vaccine (#1) COVID-19 Vaccine (#1) [facility] [employer] [facility] Comment on above: Postponed from 05/17/2000 (Patient Refus ed) Start: 01-13-2023 COVID-19 Vaccine (1) COVID-19 Vaccine (1) [facility] Comment on above: Postponed from 11/14/2004 (Patient Refus ed) Start: 01-13-2023 Depression Screen Depression Screen [facility] Start: 01-13-2023 DTaP/Tdap/Td vaccine (1 - Tdap) DTaP/Tdap/Td vaccine (1 - Tdap) [facility] Comment on above: Postponed from 11/14/2018 (Patient Refus ed) Start: 01-13-2023 Hepatitis C screening Hepatitis C screen [facility] Comment on above: Postponed from 11/14/2017 (Patient Refus ed) Start: 01-13-2023 HIV screening HIV screen [facility] Comment on above: Postponed from 11/14/2014 (Patient Refus ed) Start: 01-13-2023 HPV vaccine (1 - 2-dose series) HPV vaccine (1 - 2-dose series) [facility] Comment on above: Postponed from 11/14/2010 (Patient Refus ed) Start: 11-30-2022 End: 11-30-2022 Patient encounter procedure 11/30/2022 Office Visit Cardiology Samantha Mora PA-C [address] [place], [place] [id number] [facility] Start: 10-31-2022 End: 10-31-2022 ambulatory 10/31/2022 Visit Obstetrics and Gynecology Jacqui Russell, WHIZZER - CNM [address] [facility] [place] [address] [facility] Obstetrics & Gynecology Start: 09-21-2022 End: 09-21-2022 Patient encounter procedure 09/21/2022 Office Visit Cardiology Samantha Mora PA-C [address] [facility] [place] [address] [facility] Start: 09-20-2022 End: 09-20-2022 Patient encounter procedure 09/20/2022 Routine Obstetrics and Gynecology Jacqui Russell, WHIZZER - CNM [address] [facility] [address] [facility] Obstetrics & Gynecology Start: 09-14-2022 End: 09-14-2022 Patient encounter procedure 09/14/2022 Routine Obstetrics and Gynecology Elizabeth Galvez, WHIZZER - CNM [address] [address] [facility] Obstetrics & Gynecology Start: 09-08-2022 End: 09-08-2022 Patient encounter procedure 09/08/2022 Routine Obstetrics and Gynecology Aditya Galvan APRN - DAIRY NUTRITION SPECIALIST [address] [address] [facility] Obstetrics & Gynecology Start: 09-08-2022 End: 09-08-2022 Professional / ancillary services management 09/08/2022 Ancillary Procedure Obstetrics and Gynecology [facility] Start: 08-25-2022 End: 08-25-2022 Patient encounter procedure 08/25/2022 Routine Obstetrics and Gynecology Jacqui Russell, WHIZZER - CNM [address] [facility] [place] [address] [facility] Obstetrics [facility] Gynecology Start: 08-16-2022 End: 08-16-2022 Patient encounter procedure [facility] Start: 08-10-2022 End: 08-10-2022 Patient encounter procedure 08/10/2022 Routine Obstetrics and Gynecology Arin Sykes, DO [address] [facility] [address] [facility]etrics [facility] Gyne[facility] Start: 08-10-2022 End: 08-10-2022 Professional / ancillary services management 08/10/2022 Ancillary Procedure Obstetrics and Gynecology [facility] Start: 08-09-2022 End: 08-09-2022 Patient encounter procedure 08/09/2022 Office Visit Primary Care Nick Quiñones, WHIZZER - CYBER SECURITY INSTRUCTOR [address] [place], [place] [id number] [facility] Start: 08-03-2022 End: 08-03-2022 Patient encounter procedure 08/03/2022 Routine Obstetrics and Gynecology Elizabeth Galvez, WHIZZER - CNM [address] [facility] [address] [place], [place] [id number] [facility] Obstetrics & Gynecology Start: 05-09-2022 End: 05-09-2022 Patient encounter procedure 05/09/2022 Office Visit Primary Care Nick Quiñones WHIZZER - [employer]ITY INSTRUCTOR [address] [place] [address] [facility] Start: 04-04-2022 End: 04-04-2022 Patient encounter procedure 04/04/2022 Routine Obstetrics and Gynecology Pete Sol, WHIZZER - CNM [address] [facility] [address] [place] [address] [facility] Start: 03-17-2022 Influenza vaccination [facility] Start: 02-03-2022 End: 02-03-2022 Patient encounter procedure 02/03/2022 Office Visit Primary Care Nick Quiñones, WHIZZER - [employer] SEC[employer]ITY INSTRUCTOR [address] [place] [address] [facility] Start: 03-17-2021 Influenza vaccination Flu vaccine (#1) [employer] Phone: Start: 11-14-2020 Screening for malignant neoplasm of cervix Cervical cancer screen [employer] Phone: Start: 02-13-2020 _SARS-CoV-2 COVID19 test [facility] Work Phone: Start: 01-14-[address] up Testing [facility] Work Phone: Start: 11-14-2018 DTaP/Tdap/Td vaccine (1 - Tdap) DTaP/Tdap/Td vaccine (1 - Tdap) [employer] Phone: Start: 2015 Screening for Chlamydia trachomatis Chlamydia screen [employer] Start: 11-14-2014 HIV screening HIV screen [employer] Phone: Start: 2011 COVID-19 Vaccine (1) COVID-19 Vaccine (1) [employer] Phone: Start: 11-14-2010 HPV vaccine (1 - 2-dose series) HPV vaccine (1 - 2-dose series) [employer] Phone: Start: 11-14-2000 Varicella vaccine (1 of 2 - 2-dose childhood series) Varicella vaccine (1 of 2 - 2-dose childhood series) [employer] Phone: Start: 1999 Hepatitis C screening Hepatitis C screen [employer] Phone: End: 08-02-2022 Bacteria identified in Urine by Culture Urine culture Microbiology Routine One Time for 1 Occurrences starting 08/02/2022 until 08/02/2022 [employer] Phone: Comment on above: One Time for 1 Occurrences starting 07/17 until 08/02/2022 End: 09-24-2022 Bacteria identified in Urine by Culture Urine culture Microbiology Routine One Time for 1 Occurrences starting 09/24/2022 until 09/24/2022 [employer] Phone: Comment on above: One Time for 1 Occurrences starting 09/14 until 09/24/2022 End: 02-21-2022 C.trachomatis N.gonorrhoeae DNA, Urine [employer] Phone: Comment on above: 1 Occurrences starting 02/21/2022 until 02/21/2022 End: 08-16-2022 Continuous cardiac monitoring, >2 up to 14 days Continuous cardiac monitoring, >2 up to 14 days Cardiac Services Routine Light headedness POTS (postural orthostatic tachycardia syndrome) Abnormal tilt table test 29 weeks gestation of Chest pain, unspecified type 1 Occurrences starting 08/16/2022 until 08/16/2022 [employer] Phone: Comment on above: 1 Occurrences starting 08/16/2022 until 08/16/2022 Continuous pulse oximetry Pulse oximetry, continuous while on epidural Respiratory Care Routine Every 4hr until discontinued starting 09/25/2022 [employer] Phone: Comment on above: Every 4hr until discontinued starting End: 09-14-2022 Culture, Strep B Screen, Vaginal/Rectal [employer] Phone: Comment on above: 1 Occurrences starting 09/14/2022 until 09/14/2022 End: 02-21-2022 Culture, Urine [employer] Phone: Comment on above: 1 Occurrences starting 02/21/2022 until 02/21/2022 End: 03-15-2021 Cytopathology procedure, preparation of smear, genital source PAP SMEAR Lab Routine Women's annual routine gynecological examination 1 Occurrences starting 03/15/2021 until 03/15/2021 [employer] Phone: Comment on above: 1 Occurrences starting 03/15/2021 until 03/15/2021 nonstress test nonst ress test OB Routine Daily until discontinued starting 08/03/2022 [employer] Phone: Comment on above: Daily until discontinued starting 2022 nonstress test nonst ress test OB Routine Daily until discontinued starting 09/25/2022 [employer] Phone: Comment on above: Daily until discontinued starting 2022 Nonrebreather mask oxygen Nonrebreather mask oxygen Respiratory Care Routine As directed - RT (PRN) until discontinued starting 08/02/2022 [employer] Phone: Comment on above: As directed - RT (PRN) until discontinue d starting 08/02/2022 Nonrebreather mask oxygen Nonrebreather mask oxygen Respiratory Care Routine As directed - RT (PRN) until discontinued starting 09/24/2022 [employer] Phone: Comment on above: As directed - RT (PRN) until discontinue d starting 09/24/2022 Nonrebreather mask oxygen Nonrebreather mask oxygen Respiratory Care Routine As directed - RT (PRN) until discontinued starting 09/24/2022 [employer] Phone: Comment on above: As directed - RT (PRN) until discontinue d starting 09/24/2022 Oxygen therapy [Minimum Data Set] Initiate Oxygen Therapy Protocol while on epidural Respiratory Care Routine Daily until discontinued starting 09/24/2022 [employer] Phone: Comment on above: Daily until discontinued starting 2022 End: 09-25-2022 SURGICAL PATHOLOGY REPORT SURGICAL PATHOLOGY REPORT Lab Routine Once for 1 Occurrences starting 09/25/2022 until 09/25/2022 [employer] Phone: Comment on above: Once for 1 Occurrences starting 09/26/19 until 09/25/2022 End: 08-02-2022 SVE SVE Point of Care Testing Routine One Time for 1 Occurrences starting 08/02/2022 until 08/02/2022 [employer] Phone: Comment on above: One Time for 1 Occurrences starting 07/17 until 08/02/2022 End: 09-24-2022 SVE SVE Point of Care Testing Routine One Time for 1 Occurrences starting 09/24/2022 until 09/24/2022 [employer] Work Phone: Comment on above: One Time for 1 Occurrences starting 09/14 until 09/24/2022 Immunizations Immunization Date Immunization Notes Care Provider [facility] 09-25-2022 diphtheria, tetanus toxoids and acellular pertussis vaccine, unspecified formulation Zak Bejarano MD Work Phone: [employer] Phone: Payers Date Payer Category Payer Unknown [id number] 2014 Unknown [id number]. [id number] 1999 Unknown [id number] 2.16.8 40.1.750639.3.579.2.173 1999 Unknown [id number] 2.16.8 40.1.186800.3.579.2.173 1999 Unknown [id number] 2.16.8 40.1.160325.3.579.2.173 1999 Unknown [id number] 2.16.8 40.1.505104.3.579.2.173 1999 Unknown [id number] 2.16.8 40.1.998235.3.579.2.173 1999 Unknown [id number] 2.16.8 40.1.960035.3.579.2.173 1999 Unknown [id number] 2.16.8 40.1.959357.3.579.2.173 1999 Unknown [id number] 2.16.8 40.1.429360.3.579.2.173 1999 Unknown [id number] 2.16.8 40.1.340091.3.579.2.173 1999 Unknown [id number] 2.16.8 40.1.383077.3.579.2.173 1999 Unknown [id number] 2.16. 840.1.860255.3.579.2.175 1999 Unknown [id number] 2.16. 840.1.034686.3.579.2.175 1999 Unknown [id number] 2.16. 840.1.137377.3.579.2.175 1999 Unknown [id number] 2.16. 840.1.248872.3.579.2.175 1999 Unknown [id number] 2.16.84 0.1.220899.3.579.2.1258 1999 Unknown [id number] 2.16.84 0.1.314209.3.579.2.9 1999 Unknown [id number] 2.16.84 0.1.908446.3.579.2.9 1999 Unknown [id number] 2.16.84 0.1.178367.3.579.2.1258 1999 Unknown [id number] 2.16.84 0.1.545211.3.579.2.9 1999 Unknown [id number] 2.16.84 0.1.016676.3.579.2.9 1999 Unknown [id number] 2.16.84 0.1.636970.3.579.2.1258 1999 Unknown [id number] 2.16.84 0.1.812055.3.579.2.9 1999 Unknown [id number] 2.16.840 .1.614377.3.579.2.9 1999 Unknown [id number] 2.16.840 .1.309033.3.579.2.1259 Self-pay [id number] 2.16.840 .1.835667.3.140.1.97851.5.4 Social History Date Type Detail Facility Assertion Gender identity finding (finding) [facility] Work Phone: Assertion Finding of sexua l orientation (finding) [facility] Work Phone: Tobacco smoking status Unknown if ever smoked [facility] [employer] [facility] Work Phone: Start: 05-18-2012 End: 03-15-2021 Tobacco smoking status NHIS Never smoker [employer] Phone: Start: 05-18-2012 End: 03-15-2021 Tobacco use and exposure Never used [facility] Start: 03-15-2021 End: 09-25-2022 Alcohol intake Current non-drinker of alcohol (finding) [employer] Phone: Start: 2000 [facility] Assigned At [facility]: Start: 01-13-2022 History SDOH Financial 5 [employer] Work Phone: Start: 01-13-2022 History SDOH Food Worry 1 [employer] Phone: Start: 01-19-2022 JUAN Cristina [employer] Work Phone: Start: 07-23-2022 End: 09-24-2022 Exposure to SARS-CoV-2 (event) Not sure [employer] Phone: NEGATED: Highlighted row Assertion Current drinker of alcohol (finding) [facility] Work Phone: NEGATED: Highlighted row Assertion Finding relating to drug misuse behavior (finding) [facility] Work Phone: NEGATED: Highlighted row Assertion Exposure to pollution (event) [facility] Work Phone: NEGATED: Highlighted row Assertion Tobacco user (finding) [facility] Work Phone: Clinical Notes 01-25-2022 to [...] Follow-up with your OB doctor as specified. [facility] OB Department phone: Dr. Asya Gruber CNM Dr. Skye Sol CN [address] [facility] [address] [facility] [address] Skye Russell CN [address] [facility] [address] [phone] Kenya Tinajero, MSN, WHIZZER, CNM [facility] [address] [facility] [address] [address] Shields [facility] [address] [facility] [address] Pete Recio CN [address] [place] [address] [place] [address] Zenaida Grant CNM [address] [place] [address] [place] [address] [phone] DIET Eat a well balanced diet focusing on foods high in fiber and protein. Drink plenty of fluids especially water. To avoid constipation you may take a mild stool softener as recommended by your doctor or offset press operator helper. ACTIVITY Gradually increase your activity. Resume exercise regimen only after advice by your doctor or offset press operator helper. Avoid lifting anything heavier than a gallon of milk for SIX weeks. Avoid driving until your doctor or offset press operator helper has given their approval. Rise slowly from [...] medications as recommended by your doctor or offset press operator helper for pain If you develop a warm, [...] vitamins as directed by your doctor or offset press operator helper. Refer to the booklet in the folder/binder for more information. If you feel you need more assistance or have questions, please call Stacey Rodriguez IBCLC, technology applications consultant, at or the OB department to [...] your calf. documented in this encounter [facility] [employer] Work Phone: 09-26-2022 Hospital course Narrative Obstetrical [...] NONREACTIVE Final HIV: No results found for: [id number] Results for orders placed or performed during the hospital encounter of 09/24/22 Urinalysis Result Value Ref Range Color, UA Yellow Yellow Turbidity UA Clear Clear Glucose, Ur NEGATIVE NEGATIVE Bilirubin Urine NEGATIVE NEGATIVE Ketones, Urine TRACE (A) NEGATIVE Specific [place], UA 1.010 1.010 - 1.020 Urine Hgb [...] # 2.52 1.10 - 3.70 k/uL Absolute [place] # 0.80 0.10 - 1.20 k/uL Absolute [...] Range Expiration Date 09/27/2022,2359 Arm Band Number [id number] ABO/Rh A POSITIVE Antibody Screen NEGATIVE complications: [...] Your Medications These medications were sent to [facility], [place] - [address] [facility] [address] - P [phone] - F [phone] [address] [facility] [address], [place] [address] docusate 100 MG Caps ibuprofen 800 MG tablet Admit date: 09/24/2022 3:00 PM Discharge Date: 09/26/2022 Discharged to: Home in stable condition Plan: Follow up in 6 week(s) for post visit, blood pressure check, breast feeding check, and post depression check documented in this encounter [facility] [employer] Phone: 09-26-2022 History of Presen t illness [...] rate: Baseline Heart Rate: 125 Accelerations: present Longterm Variability: moderate Decelerations: absent Contraction frequency: 2 minutes Position: Cephalic Membranes: ROM clear fluid Cervix: Dilation: 6-7 cm Effacement: 80 Station: -1 Consistency: soft Position: mid ASSESSMENT & PLAN: Active labor. S/P AROM. Patient progressing continue current management Provider at bedside. Admission orders received from Dr Bejarano. Amnioswab negative. documented in this encounter [facility] [employer] Phone: 08-16-2022 History of Presen t illness Narrative Explained policies and procedure of an echocardiogram/Doppler study. Patient instructed on extended night monitor indications and use. Diary sent with patient. 5-7 days documented in this encounter [employer] Phone: 08-02-2022 History of Presen t illness [...] urine sample. documented in this encounter [facility] [employer] Work Phone: 08-02-2022 Hospital Discharg e instructions Wendy Choudhary RN - 08/02/2022 6:20 PM EST OUTPATIENT DISCHARGE Dr Skye Russell CN [address] [facility] [address] [phone] ACTIVITY LIMITATIONS: ( X )Up and about [...] AND DELIVERY . documented in this encounter [employer] Phone: 01-25-2022 History of Presen t illness Narrative Explained Holter monitor and diary. documented in this encounter [employer] Phone: Evaluation note Diagnosis Women's annual routine gynecological examination documented in this encounter [employer] Phone: evaluation note* Diagnosis Heart palpitations Palpitations documented in this encounter [employer] Phone: evaluation note* Diagnosis Heart palpitations Palpitations documented in this encounter [employer] Phone: evaluation note* Diagnosis Encounter for supervision of normal , antepartum, unspecified Positive urine test documented in this encounter [employer] Phone: evaluation note* Diagnosis contractions- Primary Unspecified abnormality of labor, antepartum documented in this encounter [employer] Phone: evaluation note* Diagnosis Light headedness Dizziness and giddiness POTS (postural orthostatic tachycardia syndrome) Tachycardia, unspecified Abnormal tilt table test Other nonspecific abnormal result of function study of brain and central nervous system documented in this encounter [employer] Phone: evaluation note* Diagnosis Light headedness Dizziness and giddiness POTS (postural orthostatic tachycardia syndrome) Tachycardia, unspecified Abnormal tilt table test Other nonspecific abnormal result of function study of brain and central nervous system 29 weeks gestation of state, incidental Chest pain, unspecified type documented in this encounter [employer] Phone: evaluation note* Diagnosis Encounter for supervision of normal first in second trimester Supervision of normal first documented in this encounter [employer] Phone: evalddryln note* Diagnosis 36 weeks gestation of state, incidental documented in this encounter [employer] Phone: evaluation note* Diagnosis Elevated blood pressure affecting , antepartum documented in this encounter [employer] Phone: evaluation note* Diagnosis Elevated blood pressure affecting , antepartum documented in this encounter [employer] Phone: evaluation note* Diagnosis (spontaneous vaginal delivery)- Primary Normal delivery Rupture of membranes with delay of delivery Term documented in this encounter [employer] Phone: Summary Purpose Family History No Family History Records Found Description Last Updated Maternal history of family history of is chemic heart disease 01/14/2020 Paternal history of family history of is chemic heart disease 01/14/2020 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s No Advanced Directives Records FoundDocuments on File Type Date Recorded Patient Picture Hanger Expl anation ACP-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 ACP-Power of Crushed Stone Grader Documents on File Type Date Recorded Patient Picture Hanger Expl anation ACP-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 ACP-Power of Crushed Stone Grader Latest Code Status on File Code Status [...] Monitor 48 Hour Nick Quiñones APRN - CYBER SECURITY INSTRUCTOR [address] [place] [address] Referral ID Status Reason Start Date Expiration Date Visits Re quested Visits Authorized [id number] Closed 01/13/2022 01/13/2023 1 1 Specialty Diagnoses / Procedures Referred By Contac t Referred To Contact Cardiology Diagnoses Light headedness POTS (postural orthostatic tachycardia syndrome) Abnormal tilt table test Procedures Echo 2D w doppler w color complete Jade Soto MD [address] [place], [place] [id number] Referral ID Status Reason Start Date Expiration Date Visits Re quested Visits Authorized [id number] Closed 08/04/2022 08/10/2023 1 1 Specialty Diagnoses / Procedures Referred By Contac t Referred To Contact Diagnoses Light headedness POTS (postural orthostatic tachycardia syndrome) Abnormal tilt table test 29 weeks gestation of Chest pain, unspecified type Procedures Continuous cardiac monitoring, >2 up to 14 days Jade Soto MD [address] [place] [id number] Referral ID Status Reason Start Date Expiration Date Visits Re quested Visits Authorized [id number] Closed 07/27/2022 07/27/2023 1 1 Assessments Findings Encounter Date Body mass index Telemedicine with Radha Saleem DAIRY NUTRITION SPECIALIST 01/14/2020 Exposure to a viral disease Telemedicine [...] DATE CREATED AUTHOR AUTHOR'S ORGANIZ ATION 09/28/2022 [facility] DATE CREATED AUTHOR AUTHOR'S ORGANIZ ATION 07/08/2023 [facility] DATE CREATED AUTHOR AUTHOR'S ORGANIZ ATION 01/05/2024 [facility] dical Specialists EPIC Evaluations & Outcomes (unre cognized section and content) Includes: Evaluations & Outcomes for active GoalsNo Outcomes Recorded Includes: Evaluations & Outcomes for active GoalsNo Outcomes Recorded Care Teams (unrecognized sec tion and content) Conveyor Attendant Relationship Specialty Start Date End Date Nick Quiñones APRN - CYBER SECURITY INSTRUCTOR [address] [place] [id number] PCP - General Certified Nurse 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 01/13/22 Conveyor Attendant Relationship Specialty Start Date End Date Nick Quiñones APRN - CYBER SECURITY INSTRUCTOR [address] [place] [address] PCP - General Certified Nurse 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 01/13/22 Conveyor Attendant Relationship Specialty Start Date End Date Nick Quiñones APRN - CYBER SECURITY INSTRUCTOR [address] [place] [address] PCP - General Certified Nurse 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 01/13/22 Conveyor Attendant Relationship Specialty Start Date End Date Nick Quiñones APRN - CYBER SECURITY INSTRUCTOR [address] [place] [address] PCP - General Certified Nurse 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 01/13/22 Conveyor Attendant Relationship Specialty Start Date End Date Nick Quiñones APRN - CYBER SECURITY INSTRUCTOR [address] [place] [id number] PCP - General Certified Nurse 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 01/13/22 Conveyor Attendant Relationship Specialty Start Date End Date Nick Quiñones APRN - CYBER SECURITY INSTRUCTOR [address] [place] [id number] PCP - General Certified Nurse 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 01/13/22 Conveyor Attendant Relationship Specialty Start Date End Date Nick Quiñones WHIZZER - CYBER SECURITY INSTRUCTOR [address] [place] [id number] PCP - General Certified Nurse 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 01/13/22 Conveyor Attendant Relationship Specialty Start Date End Date Nick Quiñones WHIZZER - CYBER SECURITY INSTRUCTOR [address] [place] [id number] PCP - General Certified Nurse 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 01/13/22 Conveyor Attendant Relationship Specialty Start Date End Date Nick Quiñones APRN - CYBER SECURITY INSTRUCTOR [address] [place] [id number] PCP - General Certified Nurse 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 01/13/22 Conveyor Attendant Relationship Specialty Start Date End Date Nick Quiñones WHIZZER - CYBER SECURITY INSTRUCTOR [address] [id number] PCP - General Certified Nurse 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 01/13/22 Reason for Visit (unrecogniz ed section and content) Specialty Diagnoses / Procedures Referred By Nii t Referred To Contact Diagnoses Heart palpitations Procedures Holter Monitor 48 Hour Nick Quiñones WHIZZER - CYBER SECURITY INSTRUCTOR [address] [place] [id number] Referral ID Status Reason Start Date Expiration Date Visits Re quested Visits Authorized [id number] Closed 01/13/2022 01/13/2023 1 1 Reason Comments Contractions Specialty Diagnoses / Procedures Referred By Contac t Referred To Contact Cardiology Diagnoses Light headedness POTS (postural orthostatic tachycardia syndrome) Abnormal tilt table test Procedures Echo 2D w doppler w color complete Jade Soto MD [address] [id number] Referral ID Status Reason Start Date Expiration Date Visits Re quested Visits Authorized [id number] Closed 08/04/2022 08/10/2023 1 1 Specialty Diagnoses / Procedures Referred By Nii garrido Referred To Contact Diagnoses Light headedness POTS (postural orthostatic tachycardia syndrome) Abnormal tilt table test 29 weeks gestation of Chest pain, unspecified type Procedures Continuous cardiac monitoring, >2 up to 14 days Jade Soto MD [address] [place] [id number] Referral ID Status Reason Start Date Expiration Date Visits Re quested Visits Authorized [id number] Closed 07/27/2022 07/27/2023 1 1 Reason Comments [...] mL/lumen, 1045 (Due)2100 (Due) 0900 (Due)2100 (Due) kcwpyst-reyymr-kzvrp pertussis (BOOSTRIX) injection 0.5 mL 0.5 mL, [...] every 2-3 minutes with cervical changes or [place] units (MVU) greater than 200 in a [...] Oral, EVERY 8 HOURS PRN, Starting on [place] 09/25/22 at 2228, Until Discontinued, Pain Mild [...] PRN, Dry Skin, nipple discomfort, Starting on [place] 09/25/22 at 1023, methylergonovine (METHERGINE) injection 200 [...] BE BASED ON THE PRIMARY CLINICAL RECORDS. [employer] provides no warranty or guarantee of the accuracy or completeness of information in this document.
== END 2024-01-11 10:32 | disposition home or self-care (01) ==
LOC: NOMS 10:31
PROVIDERS: Visit Provider Obstetrics & Gynecology
DX: O24.410 Gestational diabetes mellitus in pregnancy, diet controlled (principal); O36.60X0 Maternal care for excessive fetal growth, unspecified trimester, not applicable or unspecified; Z3A.37 37 weeks gestation of pregnancy
CPT/HCPCS: 76816; 87081

== ENCOUNTER 2024-01-11 20:02 | Outpatient (REF) | payer OTHER, BC, SELFPAY ==
--- OUTSIDE RECORDS SUMMARY | 2024-01-11 20:06 | XMS_ITS | CCD ---
Author Organization [facility] Care Team Providers Care Mold Capper Name Role Phone ROJAS, WICHO S Unavailable Unavailable ROJAS, WICHO S Unavailable Unavailable ROJAS, WICHO S Unavailable Unavailable ROJAS, WICHO S Unavailable Unavailable ROJAS, WICHO S Unavailable Unavailable ROJAS, WICHO S Unavailable Unavailable Radha Cuevas Primary Care Provider [phone] [place], Cari Smith Primary Care Provider Unav ailable Stephanie QUARTZ ORIENTATOR - CLINICAL STAFF ANESTHESIOLOGIST, Nick Stein Primary Care Provid er Stephanie QUARTZ ORIENTATOR - CLINICAL STAFF ANESTHESIOLOGIST, Nick L Primary Care Provid er Stephanie QUARTZ ORIENTATOR - CLINICAL STAFF ANESTHESIOLOGIST, Nick L Primary Care Provid er STEPHANIE [...] mg take 2 tablets by mo [facility] every six hours as needed acetaminophen [...] Episodic Unclassified (1 source) Hip Pain / [id number]() Onset: 10-12-2017 Past or Other Problems Problem [...] Results Test Name Value Interpretation Reference Range [facility] Surgical Pathologyon 023 Surgical Pathology (NOTE) [...] SURGICAL PATHOLOGY CONSULTATION Patient Name: FABIEN PERAZA [facility] Rec: [id number] Path Number: [id number] [facility] CONSULTING PATHOLOGISTS [facility] ANATOMIC PATHOLOGY [address] [place] [phone] [facility] Comment on above: Performed By: #### U CGP #### [facility] [address] [place] [address] [place] Attendant: Diego Bashir MD Type + Screenon 09-25-2022 Type + Screen Sample Expiration 09/27/2022,2359 Arm Band Number [id number] ABO/Rh(D) A POSITIVE Antibody Screen NEGATIVE [facility] Comment on above: Performed By: #### U CGP #### [facility] [address] [place] [address] [place] Attendant: Diego Bashir MD CBC with Auto Differentialon 09-24-2022 Absolute Eos # 0.08 [facility] Immature Granulocyte 0.11 [facility] Absolute Lymph # 2.[address] [facility] [place] # 0.80 [facility] Basophils (Bld) [#/Vol] 0.05 10*3/uL [facility] Basophils/100 WBC (Bld) 1 % 0 - 2 % [facility] Eosinophils/100 WBC (Bld) 1 % 1 - 4 % [facility] Hematocrit (Bld) [Volume fraction] 31.9 % Low 36.3 - 47.1 % [facility] Hemoglobin (Bld) [Mass/Vol] 10.5 g/dL Low 11.9 - 15.1 g/dL [facility] Immature granulocytes/100 WBC (Bld) 1 % High 0 [facility] Interpretation and review of laboratory results Abnormal [facility] Lymphocytes/100 WBC (Bld) 25 % 24 - 43 % [facility] MCH (RBC) [Entitic mass] 25.1 pg Low 25.2 - 33.5 pg [facility] MCHC (RBC) [Mass/Vol] 32.9 g/dL 28.4 - 34.8 g/dL [facility] MCV (RBC) [Entitic vol] 76.3 fL Low 82.6 - 102.9 fL [facility] Monocytes/100 WBC (Bld) 8 % 3 - 12 % [facility] NRBC Automated 0.0 0.0 per 100 WBC [facility] Platelet distribution width (Bld) [Ratio] 14.7 % High 11.8 - 14.4 % [facility] Platelet mean volume (Bld) [Entitic vol] 8.7 fL 8.1 - 13.5 fL [facility] Platelets (Bld) [#/Vol] 298 10*3/uL [facility] RBC (Bld) [#/Vol] 4.18 10*6/uL 3.95 - 5.11 m/uL [facility] Segmented neutrophils/100 WBC (Bld) 64 % 36 - 65 % [facility] Segs Absolute 6.71 [facility] WBC (Bld) [#/Vol] 10.3 10*3/uL [facility] CBC with Diffon 09-24-2022 Abs. Basophil 0.05 k/uL Normal 0.00-0.20 [facility] Comment on above: Performed By: #### U CGP #### [address] [address] [place] Attendant: Diego Bashir MD Abs.Imm.Granulocyte 0.11 k/uL Normal 0.00-0.30 [facility] Comment on above: Performed By: #### U CGP #### [address] [address] [place] Attendant: Diego Bashir MD Abs.Neutrophil (Seg) 6.71 k/uL Normal 1.50-8.10 [facility] Comment on above: Performed By: #### U CGP #### [address] [address] [place] Attendant: Diego Bashir MD Basophils/100 WBC (Bld) 1 % Normal 0-2 [facility] Comment on above: Performed By: #### U CGP #### [address] [address] [place] Attendant: Diego Bashir MD Eosinophils (Bld) [#/Vol] 0.08 10*3/uL Normal 0.00-0.44 [facility] Comment on above: Performed By: #### U CGP #### [address] [address] [place] Attendant: Diego Bashir MD Eosinophils/100 WBC (Bld) 1 % Normal 1-4 [facility] Comment on above: Performed By: #### U CGP #### [address] [address] [place] Attendant: Diego Bashir MD Erythrocyte distribution width (RBC) [Ratio] 14.7 % High 11.8-14.4 [facility] Comment on above: Performed By: #### U CGP #### [address] [address] [place] Attendant: Diego Bashir MD Hematocrit (Bld) [Volume fraction] 31.9 % Low 36.3-47.1 [facility] Comment on above: Performed By: #### U CGP #### [address] [address] [place] Attendant: Diego Bashir MD Hemoglobin (Bld) [Mass/Vol] 10.5 g/dL Low 11.9-15.1 [facility] Comment on above: Performed By: #### U CGP #### [address] [address] [place] Attendant: Diego Bashir MD Immature granulocytes/100 WBC (Bld) 1 % High 0 [facility] Comment on above: Performed By: #### U CGP #### [address] [address] [place] Attendant: Diego Bashir MD Lymphocytes (Bld) [#/Vol] 2.52 10*3/uL Normal 1.10-3.70 [facility] Comment on above: Performed By: #### U CGP #### [address] [address] [place] Attendant: Diego Bashir MD Lymphocytes/100 WBC (Bld) 25 % Normal 24-43 [facility] Comment on above: Performed By: #### U CGP #### [address] [address] [place] Attendant: Diego Bashir MD MCH (RBC) [Entitic mass] 25.1 pg Low 25.2-33.5 [facility] Comment on above: Performed By: #### U CGP #### [address] [address] [place] Attendant: Diego Bashir MD MCHC (RBC) [Mass/Vol] 32.9 g/dL Normal 28.4-34.8 [facility] Comment on above: Performed By: #### U CGP #### [address] [address] [place] Attendant: Digeo Bashir MD MCV (RBC) [Entitic vol] 76.3 fL Low 82.6-102.9 [facility] Comment on above: Performed By: #### U CGP #### [address] [address] [place] Attendant: Diego Bashir MD Monocytes (Bld) [#/Vol] 0.80 10*3/uL Normal 0.10-1.20 [facility] Comment on above: Performed By: #### U CGP #### [address] [address] [place] Attendant: Diego Bashir MD Monocytes/100 WBC (Bld) 8 % Normal 3-12 [facility] Comment on above: Performed By: #### U CGP #### [address] [address] [place] Attendant: Diego Bashir MD Neutrophil (Seg) 64 % Normal 36-65 [facility] Comment on above: Performed By: #### U CGP #### [address] [address] [place] Attendant: Diego Bashir MD NRBC Automated 0.0 per 100 WBC Normal 0.0 [facility] Comment on above: Performed By: #### U CGP #### [address] [address] [place] Attendant: Diego Bashir MD Platelet mean volume (Bld) [Entitic vol] 8.7 fL Normal 8.1-13.5 [facility] Comment on above: Performed By: #### U CGP #### [address] [address] [place] Attendant: Diego Bashir MD Platelets (Bld) [#/Vol] 298 10*3/uL Normal 138-453 [facility] Comment on above: Performed By: #### U CGP #### [address] [address] [place] Attendant: Diego Bashir MD RBC (Bld) [#/Vol] 4.18 10*6/uL Normal 3.95-5.11 [facility] Comment on above: Performed By: #### U CGP #### [address] [place] [address] [place] Attendant: Diego Bashir MD WBC (Bld) [#/Vol] 10.3 10*3/uL Normal 3.5-11.3 [facility] Comment on above: Performed By: #### U CGP #### [address] [address] [place] Attendant: Diego Bashir MD Comp Metabolic Profon 2022 Albumin [Mass/Vol] 3.5 g/dL Normal 3.5-5.2 [facility] Comment on above: Performed By: #### U CGP #### [address] [address] [place] Attendant: Diego Bashir MD Albumin/Glob Ratio 1.1 Normal 1.0-2.5 [facility] Comment on above: Performed By: #### U CGP #### [address] [address] [place] Attendant: Diego Bashir MD Alkaline Phos 140 U/L High 35-104 [facility] Comment on above: Performed By: #### U CGP #### [address] [address] [place] Attendant: Diego Bashir MD ALT [Catalytic activity/Vol] 8 U/L Normal 5-33 [facility] Comment on above: Performed By: #### U CGP #### [address] [address] [place] Attendant: Diego Bashir MD Anion gap [Moles/Vol] 15 mmol/L Normal 9-17 [facility] Comment on above: Performed By: #### U CGP #### [address] [place] [address] [place] Attendant: Diego Bashir MD AST [Catalytic activity/Vol] 14 U/L Normal <32 [facility] Comment on above: Performed By: #### U CGP #### [address] [address] [place] Attendant: Diego Bashir MD Bilirubin [Mass/Vol] 0.3 mg/dL Normal 0.3-1.2 [facility] Comment on above: Performed By: #### U CGP #### [address] [address] [place] Attendant: Diego Bashir MD BUN/CRE Ratio 7 Low 9-20 [facility] Comment on above: Performed By: #### U CGP #### [address] [address] [place] Attendant: Diego Bashir MD Calcium [Mass/Vol] 8.9 mg/dL Normal 8.6-10.4 [facility] Comment on above: Performed By: #### U CGP #### [address] [address] [place] Attendant: Diego Bashir MD Chloride [Moles/Vol] 103 mmol/L Normal 98-107 [facility] Comment on above: Performed By: #### U CGP #### [address] [address] [place] Attendant: Diego Bashir MD CO2 [Moles/Vol] 18 mmol/L Low 20-31 [facility] Comment on above: Performed By: #### U CGP #### [address] [address] [place] Attendant: Diego Bashir MD Creatinine [Mass/Vol] 0.42 mg/dL Low 0.50-0.90 [facility] Comment on above: Performed By: #### U CGP #### [facility] [address] [place] [address] [place] Attendant: Diego Bashir MD GFR/1.73 sq M.predicted among non-blacks MDRD (S/P/Bld) [Vol rate/Area] mL/min/{1.73_m2} Normal >60 [facility] Comment on above: Result Comment: These results [...] secretion. Performed By: #### U CGP #### [facility] [address] [place] [address] [place] Attendant: Diego Bashir MD Glucose [Mass/Vol] 76 mg/dL Normal 70-99 [facility] Comment on above: Performed By: #### U CGP #### [facility] [address] [place] [address] [place] Attendant: Diego Bashir MD Potassium [Moles/Vol] 3.6 mmol/L Low 3.7-5.3 [facility] Comment on above: Performed By: #### U CGP #### [facility] [address] [place] [address] [place] Attendant: Diego Bashir MD Protein [Mass/Vol] 6.6 g/dL Normal 6.4-8.3 [facility] Comment on above: Performed By: #### U CGP #### [facility] [address] [place] [address] [place] Attendant: Diego Bashir MD Sodium [Moles/Vol] 136 mmol/L Normal 135-144 [facility] Comment on above: Performed By: #### U CGP #### [facility] [address] [place] [address] [place] Attendant: Diego Bashir MD Urea nitrogen [Mass/Vol] 3 mg/dL Low 6-20 [facility] Comment on above: Performed By: #### U CGP #### [facility] [address] [place] [address] [place] Attendant: Diego Bashir MD Comprehensive Metabolic Pane [facility] 09-24-2022 Albumin [Mass/Vol] 3.5 g/dL 3.5 - 5.2 g/dL [facility] Albumin/Globulin [Mass ratio] 1.1 {ratio} 1.0 - 2.5 [facility] ALP [Catalytic activity/Vol] 140 U/L High 35 - 104 U/L [facility] ALT [Catalytic activity/Vol] 8 U/L 5 - 33 U/L [facility] Anion gap [Moles/Vol] 15 mmol/L 9 - 17 mmol/L [facility] AST [Catalytic activity/Vol] 14 U/L NINF - 32 U/L [facility] Bilirubin [Mass/Vol] 0.3 mg/dL 0.3 - 1.2 mg/dL [facility] Calcium [Mass/Vol] 8.9 mg/dL 8.6 - 10.4 mg/dL [facility] Chloride [Moles/Vol] 103 mmol/L 98 - 107 mmol/L [facility] CO2 [Moles/Vol] 18 mmol/L Low 20 - 31 mmol/L [facility] Creatinine [Mass/Vol] 0.42 mg/dL Low 0.50 - 0.90 mg/dL [facility] GFR/1.73 sq M.predicted MDRD (S/P/Bld) [Vol rate/Area] - PINF [facility] Comment on above: These results are [...] [Mass/Vol] 76 mg/dL 70 - 99 mg/dL [facility] Interpretation and review of laboratory results Abnormal [facility] Potassium [Moles/Vol] 3.6 mmol/L Low 3.7 - 5.3 mmol/L [facility] Protein [Mass/Vol] 6.6 g/dL 6.4 - 8.3 g/dL [facility] Sodium [Moles/Vol] 136 mmol/L 135 - 144 mmol/L [facility] Urea nitrogen [Mass/Vol] 3 mg/dL Low 6 - 20 mg/dL [facility] Urea nitrogen/Creatinine (Bld) [Mass ratio] 7 Low 9 - 20 [facility] DRUG SCREEN MULTI URINEon Amphetamine Screen, Ur Negative NEGATIVE [facility] Comment on above: (Positive cutoff 1000 ng/mL) Barbiturate Screen, Ur Negative NEGATIVE [facility] Comment on above: (Positive cutoff 200 ng/mL) Benzodiazepine Screen, Urine Negative NEGATIVE [facility] Comment on above: (Positive cutoff 200 ng/mL) Buprenorphine Urine Negative NEGATIVE [facility] Comment on above: (Positive cutoff 5 ng/ml) Cannabinoid Scrn, Ur Negative NEGATIVE [facility] Comment on above: (Positive cutoff 50 ng/mL) Cocaine Metabolite, Urine Negative NEGATIVE [facility] Comment on above: (Positive cutoff 300 ng/mL) Fentanyl, Ur Negative NEGATIVE [facility] Comment on above: (Positive cutoff 5 ng/ml) Methadone Screen, Urine Negative NEGATIVE [facility] Comment on above: (Positive cutoff 300 ng/mL) Opiates, Urine Negative NEGATIVE [facility] Comment on above: (Positive cutoff 300 ng/mL) Oxycodone Screen, Ur Negative NEGATIVE [facility] Comment on above: (Positive cutoff 100 ng/mL) Phencyclidine, Urine Negative NEGATIVE [facility] Comment on above: (Positive cutoff 25 ng/mL) [facility] Drug Scr, Abuse, Uron 2022 Amphetamine(s),Ur Negative Normal NEG [facility] Comment on above: Result Comment: (Positive cutoff 1000 ng/mL) Performed By: #### D AU #### [facility] [address] [place] [address] [place] [address] [place] Attendant: Artem Jones MD Barbiturate(s),Ur Negative Normal NEG [facility] Comment on above: Result Comment: (Positive cutoff 200 ng/mL) Performed By: #### D AU #### [address] [place], [place] [phone] [place] Attendant: Artem Jones MD Benzodiazepine(s) Negative Normal NEG [facility] Comment on above: Result Comment: (Positive cutoff 200 ng/mL) Performed By: #### D AU #### [address] [place], [place] [phone] [place] Attendant: Artem Jones MD Buprenorphrine, Ur Negative Normal NEG [facility] Comment on above: Result Comment: (Positive cutoff 5 ng/ml) Performed By: #### D AU #### [address] [place], [place] [phone] [place] Attendant: Artem Jones MD Cannabinoid(s),Ur Negative Normal NEG [facility] Comment on above: Result Comment: (Positive cutoff 50 ng/mL) Performed By: #### D AU #### [address] [place] [address] [place] Attendant: Artem Jones MD Cocaine Metabolite Negative Normal [facility] Comment on above: Result Comment: (Positive cutoff 300 ng/mL) Performed By: #### D AU #### [facility] [address] [place] [address] Dr[address] [place], [place] [phone] [place] Attendant: Artem Jones MD Fentanyl, Urine Negative Normal NEG [facility] Comment on above: Result Comment: (Positive cutoff 5 ng/ml) Performed By: #### D AU #### [address] [place], [place] [phone] [place] Attendant: Artem Jones MD Methadone Ql (U) Negative Normal NEG [facility] Comment on above: Result Comment: (Positive cutoff 300 ng/mL) Performed By: #### D AU #### [facility] [address] [place] [address] [place] [address] [place] Attendant: Artem oJnes MD Opiate(s), Ur Negative Normal NEG [facility] Comment on above: Result Comment: (Positive cutoff 300 ng/mL) Performed By: #### D AU #### [facility] [address] [place] [address] [place] [address] [place] Attendant: Artem Jones MD Oxycodone, Urine Negative Normal NEG [facility] Comment on above: Result Comment: (Positive cutoff 100 ng/mL) Performed By: #### D AU #### [address] [place] [address] [place] Attendant: Artem Jones MD Phencyclidine, Ur Negative Normal [facility] Comment on above: Result Comment: (Positive cutoff 25 ng/mL) Performed By: #### D AU #### [address] [place] [address] [place] Attendant: Artem Jones MD Lactate Dehydrogenaseon 09-14 LDH [Catalytic activity/Vol] 158 U/L Normal 135-214 [facility] Comment on above: Performed By: #### U CGP #### [address] [address] [place] Attendant: Diego Bashir MD Cholesterol in LDL [Mass/Vol] 158 U/L 135 - 214 U/L [facility] Microscopic Urinalysison Bacteria, UA 2+ Abnormal None [facility] Epithelial Cells UA 0 TO 2 [facility] Interpretation and review of laboratory results Abnormal [facility] Mucus, UA TRACE Abnormal None [facility] RBC clumps Auto (Urine sed) [#/Area] 0 TO 2 [facility] WBC, UA 0 TO 2 [facility] No Panel Informationon 09-24 [facility] Protein / Creatinine Ratio, Urineon 09-24-2022 Creatinine, Ur 96.6 mg/dL 28.0 - 217.0 mg/dL [facility] Protein (U) [Mass/Vol] 17 mg/dL [facility] Comment on above: No normal range esta blished. Urine Total Protein Creatinine Ratio 0.18 0.00 - 0.20 [facility] Protein,Tot,[place] Uron 2022 Creatinine [Mass/Vol] 96.6 mg/dL Normal 28.0-217.0 [facility] Comment on above: Performed By: #### P RENAT #### [address] [address] [place] Attendant: Diego Bashir MD [facility] [address] [place] [address] [place] [place] [phone] [place] Attendant: Artem Jones MD Tot Prot. Conc. 17 mg/dL Normal [facility] Comment on above: Result Comment: No n ormal range established. Performed By: #### P RENAT #### [address] [address] [place] Attendant: Diego Bashir MD [facility] [address] [place] [address] Dr[address] [place] [phone] [place] Attendant: Artem Jones MD TP/Cre Ratio 0.18 Normal 0.00-0.20 [facility] Comment on above: Performed By: #### P RENAT #### [address] [address] [place] Attendant: Diego Bashir MD [facility] [address] [place] [address] Dr[address] [place] [phone] [place] Attendant: Artem Jones MD TYPE AND SCREENon 09-24-2022 ABO/Rh Positive [facility] Arm Band Number [id number] [facility] Expiration Date 09/27/2022,2359 [facility] Urinalysison 09-24-2022 Bilirubin Urine Negative NEGATIVE [facility] Color, UA Yellow Yellow [facility] Glucose Auto test strip (U) [Mass/Vol] Negative NEGATIVE [facility] Interpretation and review of laboratory results Abnormal [facility] Ketones (U) [Mass/Vol] TRACE Abnormal NEGATIVE [facility] Leukocyte esterase Auto test strip Ql (U) Negative NEGATIVE [facility] Nitrite Auto test strip Ql (U) Negative NEGATIVE [facility] Protein (U) [Mass/Vol] 7.5 mg/dL 5.0 - 9.0 [facility] Protein (U) [Mass/Vol] Negative NEGATIVE [facility] Specific Oscar, UA 1.010 1.010 - 1.020 B ON [facility] Turbidity UA Clear Clear [facility] Urine Hgb Negative NEGATIVE [facility] Urobilinogen, Urine Normal Normal [facility] Urinalysis, Routineon 2022 Bilirubin, SemiQt,Ur Negative Normal NEG [facility] Comment on above: Performed By: #### U CGP #### [facility] [address] [place] [address] [place] Attendant: Diego Bashir MD Blood, Urine Negative Normal NEG [facility] Comment on above: Performed By: #### U CGP #### [facility] [address] [place] [address] [phone] [place] Attendant: Diego Bashir MD Clarity (U) Clear Normal CLEAR [facility] Comment on above: Performed By: #### U CGP #### [facility] [address] [place] [address] [phone] [place] Attendant: Diego Bashir MD Color (U) Yellow Normal YEL [facility] Comment on above: Performed By: #### U CGP #### [facility] [address] [place], [place] [phone] [place] Attendant: Diego Bashir MD Glucose Ql (U) Negative Normal NEG [facility] Comment on above: Performed By: #### U CGP #### [address] [address] [place] Attendant: Diego Bashir MD Ketones Ql (U) TRACE Abnormal NEG [facility] Comment on above: Performed By: #### U CGP #### [address] [address] [place] Attendant: Diego Bashir MD Leukocyte esterase Test strip Ql (U) Negative Normal NEG [facility] Comment on above: Performed By: #### U CGP #### [address] [address] [place] Attendant: Diego Bashir MD Nitrite,Ur Negative Normal NEG [facility] Comment on above: Performed By: #### U CGP #### [address] [address] [place] Attendant: Diego Bashir MD PH,Ur 7.5 Normal 5.0-9.0 [facility] Comment on above: Performed By: #### U CGP #### [address] [address] [place] Attendant: Diego Bashir MD Protein Ql (U) Negative Normal NEG [facility] Comment on above: Performed By: #### U CGP #### [address] [address] [place] Attendant: Diego Bashir MD Spec. Oscar,Ur 1.010 Normal 1.010-1.020 [facility] Comment on above: Performed By: #### U CGP #### [address] [address] [place] Attendant: Diego Bashir MD Urobilinogen,Ur Normal Normal NORM [facility] Comment on above: Performed By: #### U CGP #### [address] [address] [place] Attendant: Diego Bashir MD Urinalysis,Microon 3 Bacteria 2+ Abnormal [facility] Comment on above: Performed By: #### U CGP #### [address] [address] [place] Attendant: Diego Bashir MD Epithelial cells LM Ql (Urine sed) 0 TO 2 Normal 0-25 [facility] Comment on above: Performed By: #### U CGP #### [address] [address] [place] Attendant: Diego Bashir MD Mucus Strands TRACE Abnormal [facility] Comment on above: Performed By: #### U CGP #### [address] [address] [place] Attendant: Diego Bashir MD Urine RBC's 0 TO 2 Normal 0-2 [facility] Comment on above: Performed By: #### U CGP #### [address] [address] [place] Attendant: Diego Bashir MD Urine WBC's 0 TO 2 Normal 0-5 [facility] Comment on above: Performed By: #### U CGP #### [address] [address] [place] Attendant: Diego Bashir MD Rule Out Grp.B Strepon 09-18 Rule Out Grp.B Strep Specimen Descriptio n .VAGINA Culture NEGATIVE FOR GROUP B STREPTOCOCCI Report Status FINAL 09/18/2022 Normal [facility] Comment on above: Performed By: #### R OGBS #### [address] [address] [place] Attendant: Diego Bashir MD EVENT MONITORon 09-16-2022 EVENT MONITOR [address] [id number] EVENT MONITOR PATIENT NAME: FABIEN PERAZA : 2000 MED REC NO: [id number] ROOM: ACCOUNT NO: [id number] ADMIT DATE: 08/16/2022 PROVIDER: Jade Soto MD [...] CHASITY/JENIFER_SRIDEVIIT Doc#: Unknown CC: ASHELY Padilla Normal [facility] CBCon 09-14-2022 Erythrocyte distribution width (RBC) [Ratio] 14.4 % Normal 11.8-14.4 [facility] Comment on above: Performed By: #### P RENAT #### [place] [address] [place] Attendant: Diego Bashir MD [facility] [address] [place] [address] [place] [address] [place] Attendant: Artem Jones MD Hematocrit (Bld) [Volume fraction] 31.2 % Low 36.3-47.1 [facility] Comment on above: Performed By: #### P RENAT #### [place] [id number] [place] [address] [place] Attendant: Diego Bashir MD [facility] [address] [place] [address] [place] [address] [place] Attendant: Artem Jones MD Hemoglobin (Bld) [Mass/Vol] 9.8 g/dL Low 11.9-15.1 [facility] Comment on above: Performed By: #### P RENAT #### [address] [address] [place] Attendant: Diego Bashir MD [address] [place] [address] [place] Attendant: Artem Jones MD MCH (RBC) [Entitic mass] 24.9 pg Low 25.2-33.5 [facility] Comment on above: Performed By: #### P RENAT #### [address] [address] [place] Attendant: Diego Bashir MD [address] [place] [address] [place] Attendant: Artem Jones MD MCHC (RBC) [Mass/Vol] 31.4 g/dL Normal 28.4-34.8 [facility] Comment on above: Performed By: #### P RENAT #### [address] [address] [place] Attendant: Diego Bashir MD [address] [place] [address] [place] Attendant: Artem Jones MD MCV (RBC) [Entitic vol] 79.2 fL Low 82.6-102.9 [facility] Comment on above: Performed By: #### P RENAT #### [address] [address] [place] Attendant: Diego Bashri MD [address] [place] [address] [place] Attendant: Artem Jones MD NRBC Automated 0.0 per 100 WBC Normal 0.0 [facility] Comment on above: Performed By: #### P RENAT #### [address] [address] [place] Attendant: Diego Bashir MD [address] [place] [address] [place] Attendant: Artem Jones MD Platelet mean volume (Bld) [Entitic vol] 8.3 fL Normal 8.1-13.5 [facility] Comment on above: Performed By: #### P RENAT #### [facility] [address] [place] [address] [place] Attendant: Diego Bashir MD [facility] [address] [place] [address] Dr[place] [phone] [place] Attendant: Artem Jones MD Platelets (Bld) [#/Vol] 267 10*3/uL Normal 138-453 [facility] Comment on above: Performed By: #### P RENAT #### [address] [address] [place] Attendant: Diego Bashir MD [address] [place] [phone] [place] Attendant: Artem Jones MD RBC (Bld) [#/Vol] 3.94 10*6/uL Low 3.95-5.11 [facility] Comment on above: Performed By: #### P RENAT #### [address] [address] [place] Attendant: Diego Bashir MD [address] [place] [phone] [place] Attendant: Artem Jones MD WBC (Bld) [#/Vol] 10.7 10*3/uL Normal 3.5-11.3 [facility] Comment on above: Performed By: #### P RENAT #### [address] [address] [place] Attendant: Diego Bashir MD [address] [place] [phone] [place] Attendant: Artem Jones MD Hematocrit (Bld) [Volume fraction] 31.2 % Low 36.3 - 47.1 % [facility] Hemoglobin (Bld) [Mass/Vol] 9.8 g/dL Low 11.9 - 15.1 g/dL [facility] Interpretation and review of laboratory results Abnormal [facility] MCH (RBC) [Entitic mass] 24.9 pg Low 25.2 - 33.5 pg [facility] MCHC (RBC) [Mass/Vol] 31.4 g/dL 28.4 - 34.8 g/dL [facility] MCV (RBC) [Entitic vol] 79.2 fL Low 82.6 - 102.9 fL [facility] NRBC Automated 0.0 0.0 per 100 WBC [facility] Platelet distribution width (Bld) [Ratio] 14.4 % 11.8 - 14.4 % [facility] Platelet mean volume (Bld) [Entitic vol] 8.3 fL 8.1 - 13.5 fL [facility] Platelets (Bld) [#/Vol] 267 10*3/uL [facility] RBC (Bld) [#/Vol] 3.94 10*6/uL Low 3.95 - 5.11 m/uL [facility] WBC (Bld) [#/Vol] 10.7 10*3/uL [facility] Comp Metabolic Profon 2022 Albumin [Mass/Vol] 3.3 g/dL Low 3.5-5.2 [facility] Comment on above: Performed By: #### P RENAT #### [facility] [address] [place] [address] [place] Attendant: Diego Bashir MD [facility] [address] [place] [address] [place] [address] [place] Attendant: Artem Jones MD Albumin/Glob Ratio 1.0 Normal 1.0-2.5 [facility] Comment on above: Performed By: #### P RENAT #### [facility] [employer] [address] [place] [address] [place] Attendant: Diego Bashir MD [facility] [address] [place], [place] [phone] [place] Attendant: Artem Jones MD Alkaline Phos 124 U/L High 35-104 [facility] Comment on above: Performed By: #### P RENAT #### [facility] [address] [place] [address] [place] Attendant: Diego Bashir MD [facility] [address] [place] [address] Dr. [place] [phone] [place] Attendant: Artem Jones MD ALT [Catalytic activity/Vol] 7 U/L Normal 5-33 [facility] Comment on above: Performed By: #### P RENAT #### [address] [address] [place] Attendant: Diego Bashir MD [facility] [address] [place] [address] Dr. [place] [phone] [place] Attendant: Artem Jones MD Anion gap [Moles/Vol] 11 mmol/L Normal 9-17 [facility] Comment on above: Performed By: #### P RENAT #### [facility] [address] [place] [address] [place] Attendant: Diego Bashir MD [facility] [address] [place] [address] Dr. [place] [phone] [place] Attendant: Artem Jones MD AST [Catalytic activity/Vol] 12 U/L Normal <32 [facility] Comment on above: Performed By: #### P RENAT #### [facility] [address] [place] [address] [place] Attendant: Diego Bashir MD [facility] [address] [place] [address] Dr. [place] [phone] [place] Attendant: Artem Jones MD Bilirubin [Mass/Vol] 0.2 mg/dL Low 0.3-1.2 [facility] Comment on above: Performed By: #### P RENAT #### [address] [address] [place] Attendant: Diego Bashir MD [facility] [address] [place] [address] Dr. [place], [place] [phone] [place] Attendant: Artem Jones MD BUN/CRE Ratio 8 Low 9-20 [facility] Comment on above: Performed By: #### P RENAT #### [facility] [address] [place] [address] [place] Attendant: Diego Bashir MD [facility] [address] [place] [address] Dr. [place], [place] [phone] [place] Attendant: Artem Jones MD Calcium [Mass/Vol] 9.4 mg/dL Normal 8.6-10.4 [facility] Comment on above: Performed By: #### P RENAT #### [address] [address] [place] Attendant: Diego Bashir MD [facility] [address] [place] [address] Dr. [place], [place] [phone] [place] Attendant: Artem Jones MD Chloride [Moles/Vol] 105 mmol/L Normal 98-107 [facility] Comment on above: Performed By: #### P RENAT #### [facility] [address] [place] [address] [place] Attendant: Diego Bashir MD [address] [place], [place] [phone] [place] Attendant: Artem Jones MD CO2 [Moles/Vol] 22 mmol/L Normal 20-31 [facility] Comment on above: Performed By: #### P RENAT #### [facility] [address] [place] [address] [place] Attendant: Diego Bashir MD [facility] [address] [place] [address] Dr. [place], [place] [phone] [place] Attendant: Artem Jones MD Creatinine [Mass/Vol] 0.50 mg/dL Normal 0.50-0.90 [facility] Comment on above: Performed By: #### P RENAT #### [place] [address] [place] [address] [place] Attendant: Diego Bashir MD [address] [place] [address] [place] Attendant: Artem Jones MD GFR/1.73 sq M.predicted among non-blacks MDRD (S/P/Bld) [Vol rate/Area] mL/min/{1.73_m2} Normal >60 [facility] Comment on above: Result Comment: These results [...] secretion. Performed By: #### P RENAT #### [address] [address] [place] Attendant: Diego Bashir MD [address] [place] [address] [place] Attendant: Artem Jones MD Glucose [Mass/Vol] 108 mg/dL High 70-99 [facility] Comment on above: Performed By: #### P RENAT #### [address] [address] [place] Attendant: Diego Bashir MD [address] [place] [address] [place] Attendant: Artem Jones MD Potassium [Moles/Vol] 3.8 mmol/L Normal 3.7-5.3 [facility] Comment on above: Performed By: #### P RENAT #### [address] [address] [place] Attendant: Diego Bashir MD [address] [place] [address] [place] Attendant: Artem Jones MD Protein [Mass/Vol] 6.5 g/dL Normal 6.4-8.3 [facility] Comment on above: Performed By: #### P RENAT #### [facility] [address] [place] [address] [place] Attendant: Diego Bashir MD [facility] [address] [place] [address] [place] Attendant: Artem Jones MD Sodium [Moles/Vol] 138 mmol/L Normal 135-144 [facility] Comment on above: Performed By: #### P RENAT #### [facility] [address] [place] [address] [place] Attendant: Diego Bashir MD [facility] [address] [place] [address] [place] Attendant: Artem Jones MD Urea nitrogen [Mass/Vol] 4 mg/dL Low 6-20 [facility] Comment on above: Performed By: #### P RENAT #### [facility] [address] [place] [address] [place] Attendant: Diego Bashir MD [facility] [address] [place] [address] [place] [address] [place] Attendant: Artem Jones MD Comprehensive Metabolic Pane [facility] 09-14-2022 Albumin [Mass/Vol] 3.3 g/dL Low 3.5 - 5.2 g/dL [facility] Albumin/Globulin [Mass ratio] 1.0 {ratio} 1.0 - 2.5 [facility] ALP [Catalytic activity/Vol] 124 U/L High 35 - 104 U/L [facility] ALT [Catalytic activity/Vol] 7 U/L 5 - 33 U/L [facility] Anion gap [Moles/Vol] 11 mmol/L 9 - 17 mmol/L [facility] AST [Catalytic activity/Vol] 12 U/L NINF - 32 U/L [facility] Bilirubin [Mass/Vol] 0.2 mg/dL Low 0.3 - 1.2 mg/dL [facility] Calcium [Mass/Vol] 9.4 mg/dL 8.6 - 10.4 mg/dL [facility] Chloride [Moles/Vol] 105 mmol/L 98 - 107 mmol/L [facility] CO2 [Moles/Vol] 22 mmol/L 20 - 31 mmol/L [facility] Creatinine [Mass/Vol] 0.5 mg/dL 0.50 - 0.90 mg/dL [facility] GFR/1.73 sq M.predicted MDRD (S/P/Bld) [Vol rate/Area] - PINF [facility] Comment on above: These results are [...] 108 mg/dL High 70 - 99 mg/dL [facility] Interpretation and review of laboratory results Abnormal [facility] Potassium [Moles/Vol] 3.8 mmol/L 3.7 - 5.3 mmol/L [facility] Protein [Mass/Vol] 6.5 g/dL 6.4 - 8.3 g/dL [facility] Sodium [Moles/Vol] 138 mmol/L 135 - 144 mmol/L [facility] Urea nitrogen [Mass/Vol] 4 mg/dL Low 6 - 20 mg/dL [facility] Urea nitrogen/Creatinine (Bld) [Mass ratio] 8 Low 9 - 20 [facility] Protein / Creatinine Ratio, Urineon 09-14-2022 Creatinine, Ur 110.6 mg/dL 28.0 - 217.0 mg/dL [facility] Protein (U) [Mass/Vol] 13 mg/dL [facility] Comment on above: No normal range esta blished. Urine Total Protein Creatinine Ratio 0.12 0.00 - 0.20 [facility] Protein,Tot,[place] [facility] 2022 Creatinine [Mass/Vol] 110.6 mg/dL Normal 28.0-217.0 [facility] Comment on above: Performed By: #### U RTPRT #### [facility] [address] [place], [place] [phone] [place] Attendant: Diego Bashir MD Tot Prot. Conc. 13 mg/dL Normal [facility] Comment on above: Result Comment: No n ormal range established. Performed By: #### U RTPRT #### [facility] [address] [place], [place] [phone] [place] Attendant: Diego Bashir MD TP/Cre Ratio 0.12 Normal 0.00-0.20 [facility] Comment on above: Performed By: #### U RTPRT #### [facility] [address] [place], [place] [phone] [place] Attendant: Diego Bashir MD US OB FOLLOW UP TRANSABDOMIN AL APPROACHon 09-12-2022 US OB FOLLOW UP TRANSABDOMINAL APPROACH Growth Ultrasound ? Viable 35 week, 5 day SIUP EFW= 65% AC>HC Vertex Anterior placenta ELEONORA= 12.8 cm Interpreted by: Arin Blake DO Signed by: Arin Blake DO 09/12/22 Final result Normal [facility] US OB FOLLOW UP TRANSABDOMIN AL APPROACHon 08-29-2022 US OB FOLLOW UP TRANSABDOMINAL APPROACH Growth Ultrasound ? Viable 31 week, 4 day SIUP EFW= 53% Vertex Anterior placenta ELEONORA= 11.5 cm Cx length= 4.1 cm ? Interpreted by: Arin Blake DO Signed by: Arin Blake DO 08/29/22 Final result Normal [facility] CBC with Auto Differentialon 08-25-2022 Absolute Eos # 0.11 [facility] Absolute Immature Granulocyte 0.10 [facility] Absolute Lymph # 2.10 [facility] Absolute [place] # 0.52 [facility] Basophils (Bld) [#/Vol] 0.04 10*3/uL [facility] Basophils/100 WBC (Bld) 0 % 0 - 2 % [facility] Eosinophils/100 WBC (Bld) 1 % 1 - 4 % [facility] Hematocrit (Bld) [Volume fraction] 33.1 % Low 36.3 - 47.1 % [facility] Hemoglobin (Bld) [Mass/Vol] 10.5 g/dL Low 11.9 - 15.1 g/dL [facility] Immature granulocytes/100 WBC (Bld) 1 % High 0 [facility] Interpretation and review of laboratory results Abnormal [facility] Lymphocytes/100 WBC (Bld) 23 % Low 24 - 43 % [facility] MCH (RBC) [Entitic mass] 25.9 pg 25.2 - 33.5 pg [facility] MCHC (RBC) [Mass/Vol] 31.7 g/dL 28.4 - 34.8 g/dL [facility] MCV (RBC) [Entitic vol] 81.7 fL Low 82.6 - 102.9 fL [facility] Monocytes/100 WBC (Bld) 6 % 3 - 12 % [facility] NRBC Automated 0.0 0.0 per 100 WBC [facility] Platelet distribution width (Bld) [Ratio] 14.4 % 11.8 - 14.4 % [facility] Platelet mean volume (Bld) [Entitic vol] 9.1 fL 8.1 - 13.5 fL [facility] Platelets (Bld) [#/Vol] 301 10*3/uL [facility] RBC (Bld) [#/Vol] 4.05 10*6/uL 3.95 - 5.11 m/uL [facility] RBC (Bld) [#/Vol] MICROCYTOSIS PRESENT [facility] Segmented neutrophils/100 WBC (Bld) 69 % High 36 - 65 % [facility] Segs Absolute 6.28 [facility] WBC (Bld) [#/Vol] 9.2 10*3/uL [facility] CBC with Diffon 08-25-2022 Abs. Basophil 0.04 k/uL Normal 0.00-0.20 [facility] Comment on above: Performed By: #### C DP, GLUSC #### [address] [address] [place] Attendant: Diego Bashir MD Abs.Imm.Granulocyte 0.10 k/uL Normal 0.00-0.30 [facility] Comment on above: Performed By: #### C DP, GLUSC #### [address] [address] [place] Attendant: Diego Bashir MD Abs.Neutrophil (Seg) 6.28 k/uL Normal 1.50-8.10 [facility] Comment on above: Performed By: #### C DP, GLUSC #### [address] [address] [place] Attendant: Diego Bashir MD Basophils/100 WBC (Bld) 0 % Normal 0-2 [facility] Comment on above: Performed By: #### C DP, GLUSC #### [address] [address] [place] Attendant: Diego Bashir MD Eosinophils (Bld) [#/Vol] 0.11 10*3/uL Normal 0.00-0.44 [facility] Comment on above: Performed By: #### C DP, GLUSC #### [address] [address] [place] Attendant: Diego Bashir MD Eosinophils/100 WBC (Bld) 1 % Normal 1-4 [facility] Comment on above: Performed By: #### C DP, GLUSC #### [address] [address] [place] Attendant: Diego Bashir MD Erythrocyte distribution width (RBC) [Ratio] 14.4 % Normal 11.8-14.4 [facility] Comment on above: Performed By: #### C DP, GLUSC #### [address] [address] [place] Attendant: Diego Bashir MD Hematocrit (Bld) [Volume fraction] 33.1 % Low 36.3-47.1 [facility] Comment on above: Performed By: #### C DP, GLUSC #### [address] [address] [place] Attendant: Diego Bashir MD Hemoglobin (Bld) [Mass/Vol] 10.5 g/dL Low 11.9-15.1 [facility] Comment on above: Performed By: #### C DP, GLUSC #### [address] [address] [place] Attendant: Diego Bashir MD Immature granulocytes/100 WBC (Bld) 1 % High 0 [facility] Comment on above: Performed By: #### C DP, GLUSC #### [address] [address] [place] Attendant: Diego Bashir MD Lymphocytes (Bld) [#/Vol] 2.10 10*3/uL Normal 1.10-3.70 [facility] Comment on above: Performed By: #### C DP, GLUSC #### [address] [address] [place] Attendant: Diego Bashir MD Lymphocytes/100 WBC (Bld) 23 % Low 24-43 [facility] Comment on above: Performed By: #### C DP, GLUSC #### [address] [address] [place] Attendant: Diego Bashir MD MCH (RBC) [Entitic mass] 25.9 pg Normal 25.2-33.5 [facility] Comment on above: Performed By: #### C DP, GLUSC #### [address] [address] [place] Attendant: Diego Bashir MD MCHC (RBC) [Mass/Vol] 31.7 g/dL Normal 28.4-34.8 [facility] Comment on above: Performed By: #### C DP, GLUSC #### [address] [address] [place] Attendant: Diego Bashir MD MCV (RBC) [Entitic vol] 81.7 fL Low 82.6-102.9 [facility] Comment on above: Performed By: #### C DP, GLUSC #### [place] [address] [place] Attendant: Diego Bashir MD Monocytes (Bld) [#/Vol] 0.52 10*3/uL Normal 0.10-1.20 [facility] Comment on above: Performed By: #### C DP, GLUSC #### [address] [address] [place] Attendant: Diego Bashir MD Monocytes/100 WBC (Bld) 6 % Normal 3-12 [facility] Comment on above: Performed By: #### C DP, GLUSC #### [place] [address] [place] Attendant: Diego Bashir MD Neutrophil (Seg) 69 % High 36-65 [facility] Comment on above: Performed By: #### C DP, GLUSC #### [address] [address] [place] Attendant: Diego Bashir MD NRBC Automated 0.0 per 100 WBC Normal 0.0 [facility] Comment on above: Performed By: #### C DP, GLUSC #### [address] [place] [address] [place] Attendant: Diego Bashir MD Platelet mean volume (Bld) [Entitic vol] 9.1 fL Normal 8.1-13.5 [facility] Comment on above: Performed By: #### C DP, GLUSC #### [address] [address] [place] Attendant: Diego Bashir MD Platelets (Bld) [#/Vol] 301 10*3/uL Normal 138-453 [facility] Comment on above: Performed By: #### C DP, GLUSC #### [address] [address] [place] Attendant: Diego Bashir MD RBC (Bld) [#/Vol] 4.05 10*6/uL Normal 3.95-5.11 [facility] Comment on above: Performed By: #### C DP, GLUSC #### [address] [address] [place] Attendant: Diego Bashir MD RBC morphology finding Nom (Bld) MICROCYTOSIS PRESENT Normal [facility] Comment on above: Performed By: #### C DP, GLUSC #### [address] [address] [place] Attendant: Diego Bashir MD WBC (Bld) [#/Vol] 9.2 10*3/uL Normal 3.5-11.3 [facility] Comment on above: Performed By: #### C DP, GLUSC #### [address] [address] [place] Attendant: Diego Bashir MD Glucose [place] 50gon 2022 Glucose [Mass/Vol] 142 mg/dL High 70-135 [facility] Comment on above: Performed By: #### C DP, GLUSC #### [address] [address] [place] Attendant: Diego Bashir MD Glu Administered via Glucola Normal [facility] Comment on above: Performed By: #### C DP, GLUSC #### [facility] [address] [place] [address] [place] Attendant: Diego Bashir MD Glucose tolerance, 1 houron 08-25-2022 GLU ADMN Glucola [facility] Glucose tolerance screen 50g 142 mg/dL High 70 - 135 mg/dL [facility] Interpretation and review of laboratory results Abnormal [facility] Echo 2D w doppler w color co mpleteon 08-16-2022 [facility] Transthoracic Echocardiography Report (TTE) Patient Name KARMEN Date of Study 08/16/2022 FABIEN Ovalle Date of 2000 Gender Female Age 21 year(s) Race Room Number Height: 62 inch, 157.48 cm Corporate ID [id number] Weight: 197 pounds, 89.4 kg # Patient Acct [id number] BSA: 1.9 m^2 BMI: 36.03 # kg/m^2 MR # [id number] [employer] Removal Specialist Work,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 Procedure Date Date: 08/16/2022 Start: 08:31 AM Study Location: [facility] Indications:[place] edness. History / Tech. Comments: Dx: [...] Calculations: LVIDd:4.97 cm(3.7 - 5.6 cm) Diastolic Volume:95.52639 ml LVIDs:3.11 cm(2.2 - 4.0 cm) Systolic [...] velocity:0.13 m/s Lateral Wall E/E':5.26 [facility] Jose A Chandler MD - 08/16/2022 [facility] Transthoracic Echocardiography Report (TTE) Patient Name KARMEN Date of Study 08/16/2022 FABIEN Ovalle Date of 2000 Gender Female Age 21 year(s) Race Room Number Height: 62 inch, 157.48 cm Corporate ID [id number] Weight: 197 pounds, 89.4 kg # Patient Acct [id number] BSA: 1.9 m^2 BMI: 36.03 # kg/m^2 MR # [id number] J[employer] Removal Specialist Work,Ashley Interpreting Physician Jose A Chandler Fellow Referring Nurse 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 Interpreting Referring Physician Jade Soto Type of Study TTE procedure:2D Echocardiogram, M-Mode, Doppler, Color Doppler. Procedure Date Date: 08/16/2022 Start: 08:31 AM Study Location: [facility] Indications:Ruben coles. History / Tech. Comments: Dx: [...] Calculations: LVIDd:4.97 cm(3.7 - 5.6 cm) Diastolic Volume:95.41357 ml LVIDs:3.11 cm(2.2 - 4.0 cm) Systolic [...] E' velocity:0.13 m/s Lateral Wall E/E':5.26 [facility] Work Phone: Echo 2D w doppler w color co mpleteOrdered By: Jose A Chandler on 08-16-2022 [facility] Work Phone: Urinalysison 08-02-2022 Bilirubin Urine Negative NEGATIVE [facility] Color, UA Yellow Yellow [facility] Glucose, Ur Negative NEGATIVE [facility] Interpretation and review of laboratory results Abnormal [facility] Ketones Ql (U) Negative NEGATIVE [facility] Leukocyte esterase Test strip Ql (U) Negative NEGATIVE [facility] Nitrite, Urine Negative NEGATIVE [facility] pH, UA 7.0 5.0 - 9.0 [facility] Protein, UA Negative NEGATIVE [facility] Specific Oscar, UA Low 1.010 - 1.020 [facility] Turbidity UA Clear Clear [facility] Urine Hgb Negative NEGATIVE [facility] Urobilinogen, Urine Normal Normal [facility] Urinalysis, Routineon 2022 Bilirubin, SemiQt,Ur Negative Normal NEG [facility] Comment on above: Performed By: #### U A #### [facility] [address] [place] [address] [place] [address] [place] Attendant: Artem Jones MD Blood, Urine Negative Normal NEG [facility] Comment on above: Performed By: #### U A #### [facility] [address] [place] [address] Dr. [place], [place] [phone] [place] Attendant: Artem Jones MD Clarity (U) Clear Normal CLEAR [facility] Comment on above: Performed By: #### U A #### [facility] [address] [place] [address] [place] Attendant: Artem Jones MD Color (U) Yellow Normal YEL [facility] Comment on above: Performed By: #### U A #### [facility] [address] [place] [address] [place] [address] [place] Attendant: Artem Jones MD Glucose Ql (U) Negative Normal NEG [facility] Comment on above: Performed By: #### U A #### [facility] [address] [place] [address] Dr. [place], [place] [phone] [place] Attendant: Artem Jones MD Ketones Ql (U) Negative Normal NEG [facility] Comment on above: Performed By: #### U A #### [facility] [address] [place] [address] Dr. [place], [facility] [place] Attendant: Artem Jones MD Leukocyte esterase Test strip Ql (U) Negative Normal NEG [facility] [facility] Comment on above: Performed By: #### U A #### [facility] [address] [place] [address] Dr. [place] [id number] [place] Attendant: Artem Jones MD Nitrite,Ur Negative Normal NEG [facility] Comment on above: Performed By: #### U A #### [facility] [address] [place] [address] Dr. [place], [facility] [place] Attendant: Artem Jones MD PH,Ur 7.0 Normal 5.0-9.0 [facility] Comment on above: Performed By: #### U A #### [address] [place], [facility] [place] Attendant: Artem Jones MD Protein Ql (U) Negative Normal NEG [facility] Comment on above: Performed By: #### U A #### [facility] [address] [place] [address] Dr. [place], [facility] [place] Attendant: Artem Jones MD Spec. Oscar,Ur <1.005 Low 1.010-1.020 [facility] Comment on above: Performed By: #### U A #### [facility] [address] [place] [address] [place] [address] [place] Attendant: Artem Jones MD Urobilinogen,Ur Normal Normal NORM [facility] Comment on above: Performed By: #### U A #### [facility] [place] [address] [place] Attendant: Artem Jones MD Cult,Urineon 02-23-2022 Cult,Urine Specimen Description .CLEAN CATCH URINE Culture KLEBSIELLA PNEUMONIAE >[id number] CFU/ML Report Status FINAL 02/23/2022 SUSCEPTIBILITY Organism [...] <=20 SUSCEPTIBLE Piperacillin/Tazobact am <=4 SUSCEPTIBLE Susceptible [facility] Comment on above: Performed By: #### U RC #### [address] [id number] [place] Attendant: Diego Bashir MD [address] [place] [address] [place] Attendant: Artem Jones MD Chlamydia/GC DNA, Uron 02-22 Chlamydia Probe, Ur Negative Normal NEG [facility] Comment on above: Result Comment: CHLA MYDIA [...] target. Performed By: #### U CGP #### [facility] [address] [place] [address] [place] Attendant: Diego Bashir MD Gonorrhea Probe, Ur Negative Normal NEG [facility] Comment on above: Result Comment: NEIS SERIA [...] target. Performed By: #### U CGP #### [address] [address] [place] Attendant: Diego Bashir MD HIV Ag/Abon 02-22-2022 HIV Ag/Ab Non-Reactive Normal [facility] Comment on above: Result Comment: No l aboratory evidence of HIV infection. If acute HIV infection is suspected, consider testing for HIV-1 RNA. Performed By: #### H IVCMB, AHCV #### [address] [address] [place] Attendant: Diego Bashir MD Hep C Abon 02-22-2022 Hep C Ab Non-Reactive Normal [facility] Comment on above: Result Comment: The [...] Performed By: #### H IVCMB, AHCV #### [address] [address] [place] Attendant: Diego Bashir MD Profileon 2 T.pallidum Ab Screen Non-Reactive Normal [facility] Comment on above: Result Comment: T. pallidum antibodies are not detected. There is no serological evidence of infection with T. pallidum (early primary syphilis cannot be excluded). Retest in 2-4 weeks if syphilis is clinically suspect. Performed By: #### P RENAT #### [address] [address] [place] Attendant: Diego Bashir MD [facility] [address] [place] [address] [place] [address] [place] Attendant: Artem Jones MD Hep B Surf Ag Non-Reactive Normal NR [facility] Comment on above: Performed By: #### P RENAT #### [facility] [address] [place], [place] [phone] [place] Attendant: Diego Bashir MD [facility] [address] [place] [address] [place] [address] [place] Attendant: Artem Jones MD Rubella Ab, IgG 67.8 IU/mL Normal [facility] Comment on above: Result Comment: REFERENCE RANGE: <5.0 NON-REACTIVE (non-immune) 5.0 TO 9.9 EQUIVOCAL >=10.0 REACTIVE (immune) Performed By: #### P RENAT #### [place] [id number] [place], [place] [phone] [place] Attendant: Diego Bashir MD [facility] [address] [place], [place] [address] [address] [place] Attendant: Artem Jones MD Profile Ion 022 Absolute Eos # 0.10 [facility] Absolute Immature Granulocyte 0.05 [facility] Absolute Lymph # 2.73 [facility] Absolute Bea[place] # 0.69 [facility] Basophils (Bld) [#/Vol] 0.07 10*3/uL [facility] Basophils/100 WBC (Bld) 1 % 0 - 2 % [facility] Eosinophils/100 WBC (Bld) 1 % 1 - 4 % [facility] Hematocrit (Bld) [Volume fraction] 37.3 % 36.3 - 47.1 % [facility] Hemoglobin (Bld) [Mass/Vol] 12.2 g/dL 11.9 - 15.1 g/dL [facility] Hepatitis B Surface Ag Non-Reactive NONREACTIVE [facility] Immature granulocytes/100 WBC (Bld) 1 % High 0 [facility] Interpretation and review of laboratory results Abnormal [facility] Lymphocytes/100 WBC (Bld) 28 % 24 - 43 % [facility] MCH (RBC) [Entitic mass] 28.0 pg 25.2 - 33.5 pg [facility] MCHC (RBC) [Mass/Vol] 32.7 g/dL 28.4 - 34.8 g/dL [facility] MCV (RBC) [Entitic vol] 85.7 fL 82.6 - 102.9 fL [facility] Monocytes/100 WBC (Bld) 7 % 3 - 12 % [facility] NRBC Automated 0.0 0.0 per 100 WBC [facility] Platelet distribution width (Bld) [Ratio] 12.7 % 11.8 - 14.4 % [facility] Platelet mean volume (Bld) [Entitic vol] 9.3 fL 8.1 - 13.5 fL [facility] Platelets (Bld) [#/Vol] 300 10*3/uL [facility] RBC (Bld) [#/Vol] 4.35 10*6/uL 3.95 - 5.11 m/uL [facility] Rubella virus IgG Ql (S) 67.8 IU/mL [facility] Comment on above: REFERENCE RANGE: <5.0 NON-REACTIVE (non-immune) 5.0 TO 9.9 EQUIVOCAL >=10.0 REACTIVE (immune) Segmented neutrophils/100 WBC (Bld) 62 % 36 - 65 % [facility] Segs Absolute 6.09 [facility] T. pallidum, IgG Non-Reactive NONREACTIVE [facility] Comment on above: T. pallidum antibodies are not detected. There is no serological evidence of infection with T. pallidum (early primary syphilis cannot be excluded). Retest in 2-4 weeks if syphilis is clinically suspect. WBC (Bld) [#/Vol] 9.7 10*3/uL [facility] HIV Screenon 02-21-2022 HIV Ag/Ab Non-Reactive NONREACTIVE [facility] Comment on above: No laboratory eviden ce of HIV infection. If acute HIV infection is suspected, consider testing for HIV-1 RNA. [facility] Hepatitis C Antibodyon 02-21 Hepatitis C [...] recommended by ordering HCV RNA by PCR. [facility] TYPE AND SCREENon 0 02-21-2022 ABO/Rh Positive [facility] Profileon 2 Abs. Basophil 0.07 k/uL Normal 0.00-0.20 [facility] Comment on above: Performed By: #### P RENAT #### [address] [address] [place] Attendant: Diego Bahsir MD [facility] [address] [place] [address] Dr. [place] [phone] [place] Attendant: Artem Jones MD Abs.Imm.Granulocyte 0.05 k/uL Normal 0.00-0.30 [facility] Comment on above: Performed By: #### P RENAT #### [address] [address] [place] Attendant: Diego Bashir MD [address] [place] [phone] [place] Attendant: Artem Jones MD Abs.Neutrophil (Seg) 6.09 k/uL Normal 1.50-8.10 [facility] Comment on above: Performed By: #### P RENAT #### [address] [address] [place] Attendant: Diego Bashir MD [facility] [address] [place] [address] [place] [address] [place] Attendant: Artem Jones MD Basophils/100 WBC (Bld) 1 % Normal 0-2 [facility] Comment on above: Performed By: #### P RENAT #### [address] [address] [place] Attendant: Diego Bashir MD [address] [place] [phone] [place] Attendant: Artem Jones MD Eosinophils (Bld) [#/Vol] 0.10 10*3/uL Normal 0.00-0.44 [facility] Comment on above: Performed By: #### P RENAT #### [address] [address] [place] Attendant: Diego Bashir MD [address] [place] [phone] [place] Attendant: Artem Jones MD Eosinophils/100 WBC (Bld) 1 % Normal 1-4 [facility] Comment on above: Performed By: #### P RENAT #### [address] [address] [place] Attendant: Diego Bashir MD [address] [place] [phone] [place] Attendant: Artem Jones MD Erythrocyte distribution width (RBC) [Ratio] 12.7 % Normal 11.8-14.4 [facility] Comment on above: Performed By: #### P RENAT #### [address] [address] [place] Attendant: Diego Bashir MD [address] [place] [phone] [place] Attendant: Artem Jones MD Hematocrit (Bld) [Volume fraction] 37.3 % Normal 36.3-47.1 [facility] Comment on above: Performed By: #### P RENAT #### [address] [address] [place] Attendant: Diego Bashir MD [address] [place] [phone] [place] Attendant: Artem Jones MD Hemoglobin (Bld) [Mass/Vol] 12.2 g/dL Normal 11.9-15.1 [facility] Comment on above: Performed By: #### P RENAT #### [place] [address] [place] [address] [place] Attendant: Diego Bashir MD [facility] [address] [place] [address] [place] [address] [place] Attendant: Artem Jones MD Immature granulocytes/100 WBC (Bld) 1 % High 0 [facility] Comment on above: Performed By: #### P RENAT #### [address] [address] [place] Attendant: Diego Bashir MD [facility] [address] [place] [address] Dr. [place] [phone] [place] Attendant: Artem Jones MD Lymphocytes (Bld) [#/Vol] 2.73 10*3/uL Normal 1.10-3.70 [facility] Comment on above: Performed By: #### P RENAT #### [address] [address] [place] Attendant: Diego Bashir MD [facility] [address] [place] [address] [place] [address] [place] Attendant: Artem Jones MD Lymphocytes/100 WBC (Bld) 28 % Normal 24-43 [facility] Comment on above: Performed By: #### P RENAT #### [address] [address] [place] Attendant: Diego Bashir MD [facility] [address] [place] [address] [place] [address] [place] Attendant: Artem Jones MD MCH (RBC) [Entitic mass] 28.0 pg Normal 25.2-33.5 [facility] Comment on above: Performed By: #### P RENAT #### [address] [address] [place] Attendant: Diego Bashir MD [facility] [address] [place] [address] Dr. [place], [place] [phone] [place] Attendant: Artem Jones MD MCHC (RBC) [Mass/Vol] 32.7 g/dL Normal 28.4-34.8 [facility] Comment on above: Performed By: #### P RENAT #### [address] [address] [place] Attendant: Diego Bashir MD [address] [place] [phone] [place] Attendant: Artem Jones MD MCV (RBC) [Entitic vol] 85.7 fL Normal 82.6-102.9 [facility] Comment on above: Performed By: #### P RENAT #### [address] [address] [place] Attendant: Diego Bashir MD [address] [place] [phone] [place] Attendant: Artem Jones MD Monocytes (Bld) [#/Vol] 0.69 10*3/uL Normal 0.10-1.20 [facility] Comment on above: Performed By: #### P RENAT #### [address] [address] [place] Attendant: Diego Bashir MD [address] [place] [phone] [place] Attendant: Artem Jones MD Monocytes/100 WBC (Bld) 7 % Normal 3-12 [facility] Comment on above: Performed By: #### P RENAT #### [address] [address] [place] Attendant: Dieog Bashir MD [address] [place], [place] [phone] [place] Attendant: Artem Jones MD Neutrophil (Seg) 62 % Normal 36-65 [facility] Comment on above: Performed By: #### P RENAT #### [address] [address] [place] Attendant: Diego Bashir MD [facility] [address] [place] [address] [place] [address] [place] Attendant: Artem Jones MD NRBC Automated 0.0 per 100 WBC Normal 0.0 [facility] Comment on above: Performed By: #### P RENAT #### [address] [address] [place] Attendant: Diego Bashir MD [facility] [address] [place] [address] [place] [address] [place] Attendant: Artem Jones MD Platelet mean volume (Bld) [Entitic vol] 9.3 fL Normal 8.1-13.5 [facility] Comment on above: Performed By: #### P RENAT #### [address] [address] [place] Attendant: Diego Bashir MD [facility] [address] [place] [address] [place] [address] [place] Attendant: Artem Jones MD Platelets (Bld) [#/Vol] 300 10*3/uL Normal 138-453 [facility] Comment on above: Performed By: #### P RENAT #### [address] [address] [place] Attendant: Diego Bashir MD [facility] [address] [place] [address] Dr. [place] [phone] [place] Attendant: Artem Jones MD RBC (Bld) [#/Vol] 4.35 10*6/uL Normal 3.95-5.11 [facility] Comment on above: Performed By: #### P RENAT #### [address] [address] [place] Attendant: Diego Bashir MD [facility] [address] [place] [address] Dr. [place], [place] [phone] [place] Attendant: Artem Jones MD WBC (Bld) [#/Vol] 9.7 10*3/uL Normal 3.5-11.3 [facility] Comment on above: Performed By: #### P RENAT #### [address] [address] [place] Attendant: Diego Bashir MD [facility] [address] [place] [address] Dr. [place] [phone] [place] Attendant: Artem Jones MD Type + Scrnon 02-21 Type + Scrn Negative Normal [facility] Comment on above: Performed By: #### P RTYS #### [address] [place], [facility] [place] Attendant: Artem Jones MD Toxicology Scree, Urineon Amphetamine(s),Ur Negative Normal NEG [facility] Comment on above: Performed By: #### U CGP #### [address] [address] [place] Attendant: Diego Bashir MD Barbiturate(s),Ur Negative Normal NEG [facility] Comment on above: Performed By: #### U CGP #### [address] [address] [place] Attendant: Diego Bashir MD Benzodiazepine(s) Negative Normal NEG [facility] Comment on above: Performed By: #### U CGP #### [address] [address] [place] Attendant: Diego Bashir MD Buprenorphrine, Ur Negative Normal NEG [facility] Comment on above: Performed By: #### U CGP #### [address] [id number] [place] Attendant: Diego Bashri MD Cannabinoid(s),Ur Negative Normal NEG [facility] Comment on above: Performed By: #### U CGP #### [facility] [address] [place] [address] [place] Attendant: Diego Bashir MD Cocaine Metabolite Negative Normal [facility] Comment on above: Performed By: #### U CGP #### [facility] [address] [place] [address] [place] Attendant: Diego Bashir MD Methadone Negative Normal [facility] Comment on above: Performed By: #### U CGP #### [address] [address] [place] Attendant: Diego Bashir MD Methamphetamine, Ur Negative Normal [facility] Comment on above: Performed By: #### U CGP #### [address] [address] [place] Attendant: Diego Bashir MD Opiate(s), Ur Negative Normal [facility] Comment on above: Performed By: #### U CGP #### [address] [address] [place] Attendant: Diego Bashir MD Oxycodone, Urine Negative Normal [facility] Comment on above: Performed By: #### U CGP #### [address] [address] [place] Attendant: Diego Bashir MD Phencyclidine, Ur Negative Normal [facility] Comment on above: Performed By: #### U CGP #### [address] [address] [place] Attendant: Diego Bashir MD Propoxyphene,Urine Negative Normal [facility] Comment on above: Performed By: #### U CGP #### [address] [address] [place] Attendant: Diego Bashir MD Tricyclic Antidepressants Negative Normal NEG [facility] Comment on above: Result Comment: Drug screen results are to be used for medical purposes only. All positive results are unconfirmed. Testing for employment or legal uses should be sent to a reference laboratory for confirmation. Performed By: #### U [facility] #### [facility] [address] [place] [address] [place] Attendant: Diego Bashir MD Urine Drug Screen, Chad coelloe 02-21-2022 Amphetamine Screen, Ur Negative NEGATIVE [facility] Barbiturate Screen, Ur Negative NEGATIVE [facility] Benzodiazepine Screen, Urine Negative NEGATIVE [facility] Buprenorphine Urine Negative NEGATIVE [facility] Cannabinoid Scrn, Ur Negative NEGATIVE [facility] Cocaine Metabolite, Urine Negative NEGATIVE [facility] Methadone Screen, Urine Negative NEGATIVE [facility] Methamphetamine, Urine Negative NEGATIVE [facility] Opiates, Urine Negative NEGATIVE [facility] Oxycodone Screen, Ur Negative NEGATIVE [facility] Phencyclidine, Urine Negative NEGATIVE [facility] Propoxyphene, Urine Negative NEGATIVE [facility] Tricyclic Antidepressants, Urine Negative NEGATIVE [facility] Comment on above: Drug screen results are to be used for medical purposes only. All positive results are unconfirmed. Testing for employment or legal uses should be sent to a reference laboratory for confirmation. [facility] TILT TABLE TESTon 01-26-2022 TILT TABLE TEST [address] [id number] TILT TABLE TEST PATIENT NAME: FABIEN PERAZA : 2000 MED REC NO: [id number] ROOM: ACCOUNT NO: [id number] ADMIT DATE: 01/25/2022 PROVIDER: Jade Soto MD [...] up with their primary care physician and/or consultant [employer]. vice president [employer] (ex ) as previously scheduled. STUDY CONCLUSIONS: Abnormal head [...] MD CHASITY/DARCY_JEMMA Doc#: Unknown CC: Nick Quiñones, QUARTZ ORIENTATOR-CLINICAL STAFF ANESTHESIOLOGIST [facility] Basic Metabolic Panelon 06-3 Anion gap [Moles/Vol] 11 mmol/L 9 - 17 mmol/L [facility] Calcium [Mass/Vol] 9.6 mg/dL 8.6 - 10.4 mg/dL [facility] Chloride [Moles/Vol] 104 mmol/L 98 - 107 mmol/L [facility] CO2 [Moles/Vol] 24 mmol/L 20 - 31 mmol/L [facility] Creatinine [Mass/Vol] 0.74 mg/dL 0.50 - 0.90 mg/dL [facility] GFR >60 >60 mL/min [facility] GFR Non- >60 >60 mL/min [facility] Glucose [Mass/Vol] 91 mg/dL 70 - 99 mg/dL [facility] Potassium [Moles/Vol] 4.0 mmol/L 3.7 - 5.3 mmol/L [facility] Sodium [Moles/Vol] 139 mmol/L 135 - 144 mmol/L [facility] Urea nitrogen (BldV) [Mass/Vol] 14 mg/dL 6 - 20 mg/dL [facility] Urea nitrogen/Creatinine (Bld) [Mass ratio] 19 [facility] Basic Metabolic Profon 01-13 (cont.) Normal [facility] Comment on above: Result Comment: Aver age GFR for 20-29 years old: 116 mL/min/1.73sq m Chronic Kidney Disease: <60 mL/min/1.73sq m Kidney failure: <15 mL/min/1.73sq m eGFR calculated using average adult body mass. Additional eGFR calculator available at: http://www.[employer].NetSpend/multiple_crcl_2011.htm Performed By: #### B RIC, CBC #### [facility] [address] [place] [address] [place] Attendant: Artem Jones MD Anion gap [Moles/Vol] 11 mmol/L Normal -17 [facility] Comment on above: Performed By: #### B RIC, CBC #### [facility] [address] [place] [address] [place] Attendant: Artem Jones MD BUN/CRE Ratio 19 Normal 9-20 [facility] Comment on above: Performed By: #### B MP, CBC #### [facility] [address] [place] [address] [place] Attendant: Artem Jones MD Calcium [Mass/Vol] 9.6 mg/dL Normal 8.6-10.4 [facility] Comment on above: Performed By: #### B MP, CBC #### [facility] [address] [place], [place] [phone] [place] Attendant: Artem Jones MD Chloride [Moles/Vol] 104 mmol/L Normal 98-107 [facility] Comment on above: Performed By: #### B MP, CBC #### [facility] [address] [place], [place] 3541983 [place] Attendant: Artem Jones MD CO2 [Moles/Vol] 24 mmol/L Normal 20-31 [facility] Comment on above: Performed By: #### B MP, CBC #### [facility] [address] [place], [place] [phone] [place] Attendant: Artem Jones MD Creatinine [Mass/Vol] 0.74 mg/dL Normal 0.50-0.90 [facility] Comment on above: Performed By: #### B MP, CBC #### [facility] [address] [place], [place] [phone] [place] Attendant: Artem Jones MD GFR, Amer >60 Normal >60 [facility] Comment on above: Performed By: #### B MP, CBC #### [facility] [address] [place], [place] [phone] [place] Attendant: Artem Jones MD GFR,non Amer >60 Normal >60 [facility] Comment on above: Performed By: #### B MP, CBC #### [facility] [address] [place] [address] [place] Attendant: Artem Jones MD Glucose [Mass/Vol] 91 mg/dL Normal 70-99 [facility] Comment on above: Performed By: #### B MP, CBC #### [facility] [address] [place] [address] [place] Attendant: Artem Jones MD Potassium [Moles/Vol] 4.0 mmol/L Normal 3.7-5.3 [facility] Comment on above: Performed By: #### B MP, CBC #### [facility] [address] [place] [address] [place] Attendant: Artem Jones MD Sodium [Moles/Vol] 139 mmol/L Normal 135-144 [facility] Comment on above: Performed By: #### B RIC, CBC #### [facility] [address] [place] [address] [place] Attendant: Artem Jones MD Staging: Normal [facility] Comment on above: Result Comment: Stag e 1: Some kidney damage normal GFR Stage 2: Mild kidney damage GFR 60-89 Stage 3: Moderate kidney damage GFR 30-59 Stage 4: Severe kidney damage GFR 15-29 Stage 5: Severe kidney damage GFR <15 ESRD - chronic treatment by dialysis or transplant Performed By: #### B MP, CBC #### [address] [place] [address] [place] Attendant: Artem Jones MD Urea nitrogen [Mass/Vol] 14 mg/dL Normal 6-20 [facility] Comment on above: Performed By: #### B MP, CBC #### [facility] [address] [place] [address] [place] Attendant: Artem Jones MD CBCon 01-13-2022 Erythrocyte distribution width (RBC) [Ratio] 12.4 % Normal 11.8-14.4 [facility] Comment on above: Performed By: #### B RIC, CBC #### [facility] [address] [place] [address] [place] Attendant: Artem Jones MD Hematocrit (Bld) [Volume fraction] 39.7 % Normal 36.3-47.1 [facility] Comment on above: Performed By: #### B MP, CBC #### [facility] [address] [place], [place] [id number] [place] Attendant: Artem Jones MD Hemoglobin (Bld) [Mass/Vol] 13.0 g/dL Normal 11.9-15.1 [facility] Comment on above: Performed By: #### B MP, CBC #### [address] [place] [address] [place] Attendant: Artem Jones MD MCH (RBC) [Entitic mass] 27.7 pg Normal 25.2-33.5 [facility] Comment on above: Performed By: #### B MP, CBC #### [address] [place] [phone] [place] Attendant: Artem Jones MD MCHC (RBC) [Mass/Vol] 32.7 g/dL Normal 28.4-34.8 [facility] Comment on above: Performed By: #### B MP, CBC #### [address] [place] [address] [place] Attendant: Artem Jones MD MCV (RBC) [Entitic vol] 84.6 fL Normal 82.6-102.9 [facility] Comment on above: Performed By: #### B MP, CBC #### [address] [place] [address] [place] Attendant: Artem Jones MD NRBC Automated 0.0 per 100 WBC Normal 0.0 [facility] Comment on above: Performed By: #### B MP, CBC #### [facility] [address] [place] [address] [place] Attendant: Artem Jones MD Platelet mean volume (Bld) [Entitic vol] 9.1 fL Normal 8.1-13.5 [facility] Comment on above: Performed By: #### B MP, CBC #### [facility] [address] [place] [address] [place] Attendant: Artem Jones MD Platelets (Bld) [#/Vol] 275 10*3/uL Normal 138-453 [facility] Comment on above: Performed By: #### B MP, CBC #### [facility] [address] [place] [address] [place] Line Attendant: Artem Jones MD RBC (Bld) [#/Vol] 4.69 10*6/uL Normal 3.95-5.11 [facility] Comment on above: Performed By: #### B MP, CBC #### [facility] [address] [place], [facility] [place] Line Attendant: Artem Jones MD WBC (Bld) [#/Vol] 8.2 10*3/uL Normal 3.5-11.3 [facility] Comment on above: Performed By: #### B MP, CBC #### [facility] [address] [place] [address] [place] Line Attendant: Artem Jones MD Hematocrit (Bld) [Volume fraction] 39.7 % 36.3 - 47.1 % [facility] Hemoglobin (Bld) [Mass/Vol] 13.0 g/dL 11.9 - 15.1 g/dL [facility] MCH (RBC) [Entitic mass] 27.7 pg 25.2 - 33.5 pg [facility] MCHC (RBC) [Mass/Vol] 32.7 g/dL 28.4 - 34.8 g/dL [facility] MCV (RBC) [Entitic vol] 84.6 fL 82.6 - 102.9 fL [facility] NRBC Automated 0.0 0.0 per 100 WBC [facility] Platelet distribution width (Bld) [Ratio] 12.4 % 11.8 - 14.4 % [facility] Platelet mean volume (Bld) [Entitic vol] 9.1 fL 8.1 - 13.5 fL [facility] Platelets (Bld) [#/Vol] 275 10*3/uL [facility] RBC (Bld) [#/Vol] 4.69 10*6/uL 3.95 - 5.11 m/uL [facility] WBC (Bld) [#/Vol] 8.2 10*3/uL [facility] Laboratory - Chemistry and C hemistry - challengeon 01-13-2022 GFR/1.73 sq M.predicted MDRD (S/P/Bld) [Vol rate/Area] [facility] Comment on above: Average GFR for 20-2 9 years old: 116 mL/min/1.73sq m Chronic Kidney Disease: <60 mL/min/1.73sq m Kidney failure: <15 mL/min/1.73sq m eGFR calculated using average adult body mass. Additional eGFR calculator available at: http://[email or web address]/multiple_crcl_2012.htm Stage 1: Some kidney damage normal GFR Stage 2: Mild kidney damage GFR 60-89 Stage 3: Moderate kidney damage GFR 30-59 Stage 4: Severe kidney damage GFR 15-29 Stage 5: Severe kidney damage GFR <15 ESRD - chronic treatment by dialysis or transplant PROGRESSon 10-12-2017 [facility] NOTES Normal [facility] PROGRESSon 09-21-2017 [facility] NOTES Normal [facility] Vital Signs Date Time Vital Sign Value Performing Clinician Faci lity 09-26-2022 08:16-0400 Body temperature 98.1 [degF] Zak Bejarano MD Work Phone: [facility] 09-26-2022 08:16-0400 Diastolic blood pressure 80 mm[Hg] Zak Bejarano MD Work Phone: [facility] 09-26-2022 08:16-0400 Heart rate 81 /min Zak Bejarano MD Work Phone: [facility] 09-26-2022 08:16-0400 Respiratory rate 16 /min Zak Bejarano MD Work Phone: [facility] 09-26-2022 08:16-0400 Systolic blood pressure 130 mm[Hg] Zak Bejarano MD Work Phone: [facility] 09-25-2022 08:04-0400 SaO2% (BldA) [Mass fraction] 99 % Zak Bejarano MD Work Phone: [facility] 08-02-2022 18:01-0500 Body height 157.5 cm Pete Sol APRN - CNAlison Work Phone: [facility] 08-02-2022 18:01-0500 Body mass index (BMI) [Ratio] 35.85 kg/m2 Pete Sol APRN - CNAlison Work Phone: [facility] 08-02-2022 18:01-0500 Body weight 88.91 kg Pete Holt CNM Work Phone: [facility] 08-02-2022 17:37-0500 Diastolic blood pressure 70 mm[Hg] Pete Sol APRN - CURTIS Work Phone: [facility] 08-02-2022 17:37-0500 Heart rate 93 /min Pete Holt CNM Work Phone: [facility] 08-02-2022 17:37-0500 Respiratory rate 18 /min Pete Sol APRN - CNAlison Work Phone: [facility] 08-02-2022 17:37-0500 Systolic blood pressure 118 mm[Hg] Pete Holt CNAlison Work Phone: [facility] 08-02-2022 17:17-0500 Body temperature 97.9 [degF] Pete Holt CNAlison Work Phone: [facility] 01-14-2020 10:40-0400 BMI (Body Mass Index) 30.2 kg/m2 [facility] Work Phone: 01-14-2020 10:40-0400 Body weight 74.84 kg [facility] Work Phone: 01-14-2020 10:40-0400 BSA (Body Surface Area) 1.76 m2 [facility] Work Phone: 01-14-2020 10:40-0400 Height 157.48 cm [facility] Work Phone: Encounters Encounter Date Encounter [...] of inpatient Zak Bejarano MD Work Phone: [facility] Labor and Delivery Start: 09-14-2022 End: 09-15-2022 ambulatory NICK [facility] Start: 09-14-2022 End: 09-14-2022 Subsequent hospital visit by physician Nick Quiñones QUARTZ ORIENTATOR - CLINICAL STAFF ANESTHESIOLOGIST Work Phone: [facility] DOCTOR Comment on above: 36 weeks gestation o f Start: 09-14-2022 End: 09-14-2022 [facility] Start: 09-14-2022 End: 09-14-2022 Subsequent hospital visit by physician Nick Quiñones APRN - LIONEL Work Phone: [facility] Laboratory Comment on above: Elevated blood press ure affecting , antepartum Start: 09-08-2022 End: 09-08-2022 ambulatory ADITYA [facility] Start: 08-25-2022 End: 08-26-2022 ambulatory JACQUI RUSSELL [facility] Start: 08-25-2022 End: 08-25-2022 Subsequent hospital visit by physician Nick Quiñones APRN - LIONEL Work Phone: [facility] [employer] Comment on above: Encounter for superv ision of normal first in second trimester Start: 08-16-2022 End: 08-17-2022 [facility]ulatory [facility] Start: 08-16-2022 End: 08-16-2022 Subsequent hospital visit by physician [facility] Echo Room [facility] Echocardiography Comment on above: Light headedness; POTS (postural orthostatic tachycardia syndrome); Abnormal tilt table test Light headedness; POTS (postural orthostatic tachycardia syndrome); Abnormal tilt table test; 29 weeks gestation of ; Chest pain, unspecified type Start: 08-02-2022 End: 08-02-2022 [facility]ulatory [facility] Start: 08-02-2022 End: 08-02-2022 Subsequent hospital visit by physician Pete Sol APRN - CURTIS Work Phone: [facility] Labor and Delivery Start: 02-21-2022 End: 02-22-2022 ambulatory [facility] Start: 02-21-2022 End: 02-21-2022 Subsequent hospital visit by physician Nick Quiñones APRN - LIONEL Work Phone: [facility] Laboratory Comment on above: Encounter for superv ision of normal , antepartum, unspecified ; Positive urine test Start: 01-25-2022 End: 01-26-2022 ambulatory NICK Moore [facility] Start: 01-25-2022 End: 01-25-2022 Subsequent hospital visit by physician [facility] Veterinary Science Teacher [facility] EKG Comment on above: Heart palpitations Start: 01-13-2022 End: 01-14-2022 ambulatory NICK Moore [facility] Start: 01-13-2022 End: 01-13-2022 Subsequent hospital visit by physician Nick Quiñones QUARTZ ORIENTATOR - CLINICAL STAFF ANESTHESIOLOGIST Work Phone: [facility] Laboratory Comment on above: Heart palpitations Start: 03-15-2021 End: 03-15-2021 Patient encounter procedure Cari Toribio MD [facility] Laboratory Start: 03-15-2021 End: 03-15-2021 Subsequent hospital visit by physician Cari Toribio MD [facility] Laboratory Comment on above: Women's annual routi ne gynecological examination Start: 01-14-2020 End: 01-14-2020 Patient encounter procedure Meri Silva Work Phone: [facility] Work Phone: Start: 01-14-2020 End: 01-14-2020 Telemedicine consultation with patient Radha Cuevas Work Phone: [facility] Work Phone: Start: 10-12-2017 [facility] Start: 09-21-2017 [facility] Procedures Date Procedure Procedure Detail Performing [...] End: 09-14-2022 Comprehensive metabolic panel Elizabeth Galvez QUARTZ ORIENTATOR - [facility] Work Phone: Start: 08-25-[address] gtt 3 specimens Jacqui Russell QUARTZ ORIENTATOR - CN Work Phone: Start: 08-16-2022 Echo tthrc r-t 2d w/wom-mode compl spec&colr d Jade Soto MD Work Phone: Start: 08-02-2022 Urnls dip stick/tabl et rgnt auto w/o microscopy Pete Guillenbhavik Sol QUARTZ ORIENTATOR - [facility] Work Phone: Start: 02-21-2022 Antibody screen Nick Stephanie QUARTZ ORIENTATOR Daily [facility] Work Phone: Start: 02-21-2022 End: 02-21-2022 Antibody hiv-1&hiv-2 single result Pete Jacob Sol QUARTZ ORIENTATOR - [facility] Work Phone: Start: 02-21-2022 Drug screen, qualitate/multi Pete Jacob Ebenezer QUARTZ ORIENTATOR - CN Work Phone: Start: 01-13-2022 Basic metabolic pane l calcium total Nick Quiñones QUARTZ ORIENTATOR - [facility] Work Phone: Start: 03-15-2021 Microscopic observat ion [Identifier] in Cervix by Cyto stain Nick Stephanie QUARTZ ORIENTATOR - [facility] Work Phone: Start: 01-14-2020 MIGRAINE HEADACHE Gertrude e Faith NEGATED: Highlighted row has not occurred!Start: 01-14-2020 reported prior surgical / procedural history Radha uCevas Plan of Treatment Date Care Activity Detail Author Start: 03-15-2024 Screening for malignant neoplasm of cervix Pap smear [facility] Start: 05-09-2023 Depression Screen Depression Screen [facility] Start: 05-09-2023 Influenza vaccination Flu vaccine (#1) [facility] Comment on above: Postponed from 02/14/2022 (Patient Refus ed) Start: 02-21-2023 Screening for Chlamydia trachomatis Chlamydia/GC screen [facility] Start: 02-03-2023 Depression Screen Depression Screen [facility] Start: 01-13-2023 COVID-19 Vaccine (#1) COVID-19 Vaccine (#1) [facility] Comment on above: Postponed from 05/17/2000 (Patient Refus ed) Start: 01-13-2023 COVID-19 Vaccine (1) COVID-19 Vaccine (1) [facility] Comment on above: Postponed from 11/14/2004 (Patient Refus ed) Start: 01-13-2023 Depression Screen Depression Screen [facility] Start: 01-13-2023 DTaP/Tdap/Td vaccine (1 - Tdap) DTaP/Tdap/Td vaccine (1 - Tdap) [facility] Comment on above: Postponed from 11/14/2018 (Patient Refus ed) Start: 01-13-2023 Hepatitis C screening Hepatitis C screen [facility] Comment on above: Postponed from 11/14/2017 (Patient Refus ed) Start: 01-13-2023 HIV screening HIV screen [facility] Comment on above: Postponed from 11/14/2014 (Patient Refus ed) Start: 01-13-2023 HPV vaccine (1 - 2-dose series) HPV vaccine (1 - 2-dose series) [facility] Comment on above: Postponed from 11/14/2010 (Patient Refus ed) Start: 11-30-2022 End: 11-30-2022 Patient encounter procedure 11/30/2022 Office Visit Cardiology Samantha Mora PA-C [address] [place], [place] [id number] [facility] CARDIOLOGY [facility] Start: 10-31-2022 End: 10-31-2022 ambulatory 10/31/2022 Visit Obstetrics and Gynecology Jacqui Russell, QUARTZ ORIENTATOR - CNM [address] [facility] [place] [address] [facility] Obstetrics & Gynecology Start: 09-21-2022 End: 09-21-2022 Patient encounter procedure 09/21/2022 Office Visit Cardiology Samantha Mora PA-C [address] [place] [address] [facility] CARDIOLOGY [facility] Start: 09-20-2022 End: 09-20-2022 Patient encounter procedure 09/20/2022 Routine Obstetrics and Gynecology Jacqui Russell, QUARTZ ORIENTATOR - CNM [address] [facility] [place] [address] [facility] Obstetrics & Gynecology Start: 09-14-2022 End: 09-14-2022 Patient encounter procedure 09/14/2022 Routine Obstetrics and Gynecology Elizabeth Galvez, QUARTZ ORIENTATOR - CNM [address] [address] [facility] Obstetrics & Gynecology Start: 09-08-2022 End: 09-08-2022 Patient encounter procedure 09/08/2022 Routine Obstetrics and Gynecology Aditya Galvan APRN - SALES PROMOTION REPRESENTATIVE [address] [address] [facility] Obstetrics & Gynecology Start: 09-08-2022 End: 09-08-2022 Professional / ancillary services management 09/08/2022 Ancillary Procedure Obstetrics and Gynecology [facility] Ob[facility]etric[facility] Gyne[facility] Start: 08-25-2022 End: 08-25-2022 Patient encounter procedure 08/25/2022 Routine Obstetrics and Gynecology Jacqui Russell, QUARTZ ORIENTATOR - CNM [address] [facility] [place] [address] [facility] Obstetrics & Gynecology Start: 08-16-2022 End: 08-16-2022 Patient encounter procedure [facility] Start: 08-10-2022 End: 08-10-2022 Patient encounter procedure 08/10/2022 Routine Obstetrics and Gynecology Arin Sykes, DO [address] [facility] [place] [address] [facility] Obstetrics & Gynecology Start: 08-10-2022 End: 08-10-2022 Professional / ancillary services management 08/10/2022 Ancillary Procedure Obstetrics and Gynecology [facility] Obstetrics & Gynecology Start: 08-09-2022 End: 08-09-2022 Patient encounter procedure 08/09/2022 Office Visit Primary Care Nick Quiñones, QUARTZ ORIENTATOR - CLINICAL STAFF ANESTHESIOLOGIST [address] [place], [place] [id number] [facility] Start: 08-03-2022 End: 08-03-2022 Patient encounter procedure 08/03/2022 Routine Obstetrics and Gynecology Elizabeth Galvez, QUARTZ ORIENTATOR - CNM [address] [facility] [address] [place], [place] [id number] [facility] Obstetrics & Gynecology Start: 05-09-2022 End: 05-09-2022 Patient encounter procedure 05/09/2022 Office Visit Primary Care Nick Quiñones QUARTZ ORIENTATOR - CLINICAL STAFF ANESTHESIOLOGIST [address] [place] [address] [facility] Start: 04-04-2022 End: 04-04-2022 Patient encounter procedure 04/04/2022 Routine Obstetrics and Gynecology Pete Sol, QUARTZ ORIENTATOR - CNM [address] [facility] [address] [place] [address] [facility] OBSTETRICS & GYNECOLOGY [facility] Start: 03-17-2022 Influenza vaccination [facility] Start: 02-03-2022 End: 02-03-2022 Patient encounter procedure 02/03/2022 Office Visit Primary Care Nick Quiñones, QUARTZ ORIENTATOR - CLINICAL STAFF ANESTHESIOLOGIST [address] [place] [address] [facility] [place] Start: 03-17-2021 Influenza vaccination Flu vaccine (#1) [facility] Phone: Start: 11-14-2020 Screening for malignant neoplasm of cervix Cervical cancer screen [facility] Phone: Start: 02-13-2020 _SARS-CoV-2 COVID19 test [facility] Work Phone: Start: 01-14-2020 COVID Drive up Testing [facility] Work Phone: Start: 11-14-2018 DTaP/Tdap/Td vaccine (1 - Tdap) DTaP/Tdap/Td vaccine (1 - Tdap) [facility] Phone: Start: 2015 Screening for Chlamydia trachomatis Chlamydia screen [facility] Start: 11-14-2014 HIV screening HIV screen [facility] Phone: Start: 2011 COVID-19 Vaccine (1) COVID-19 Vaccine (1) [facility] Phone: Start: 11-14-2010 HPV vaccine (1 - 2-dose series) HPV vaccine (1 - 2-dose series) [facility] Phone: Start: 11-14-2000 Varicella vaccine (1 of 2 - 2-dose childhood series) Varicella vaccine (1 of 2 - 2-dose childhood series) [facility] Phone: Start: 1999 Hepatitis C screening Hepatitis C screen [facility] Phone: End: 08-02-2022 Bacteria identified in Urine by Culture Urine culture Microbiology Routine One Time for 1 Occurrences starting 08/02/2022 until 08/02/2022 [facility] Phone: Comment on above: One Time for 1 Occurrences starting 07/17 until 08/02/2022 End: 09-24-2022 Bacteria identified in Urine by Culture Urine culture Microbiology Routine One Time for 1 Occurrences starting 09/24/2022 until 09/24/2022 [facility] Phone: Comment on above: One Time for 1 Occurrences starting 09/14 until 09/24/2022 End: 02-21-2022 C.trachomatis N.gonorrhoeae DNA, Urine [facility] Phone: Comment on above: 1 Occurrences starting 02/21/2022 until 02/21/2022 End: 08-16-2022 Continuous cardiac monitoring, >2 up to 14 days Continuous cardiac monitoring, >2 up to 14 days Cardiac Services Routine Light headedness POTS (postural orthostatic tachycardia syndrome) Abnormal tilt table test 29 weeks gestation of Chest pain, unspecified type 1 Occurrences starting 08/16/2022 until 08/16/2022 [facility] Phone: Comment on above: 1 Occurrences starting 08/16/2022 until 08/16/2022 Continuous pulse oximetry Pulse oximetry, continuous while on epidural Respiratory Care Routine Every 4hr until discontinued starting 09/25/2022 [facility] Phone: Comment on above: Every 4hr until discontinued starting End: 09-14-2022 Culture, Strep B Screen, Vaginal/Rectal [facility] Phone: Comment on above: 1 Occurrences starting 09/14/2022 until 09/14/2022 End: 02-21-2022 Culture, Urine [facility] Phone: Comment on above: 1 Occurrences starting 02/21/2022 until 02/21/2022 End: 03-15-2021 Cytopathology procedure, preparation of smear, genital source [facility] Lab Routine Women's annual routine gynecological examination 1 Occurrences starting 03/15/2021 until 03/15/2021 [facility] Phone: Comment on above: 1 Occurrences starting 03/15/2021 until 03/15/2021 nonstress test nonst ress test OB Routine Daily until discontinued starting 08/03/2022 [facility] Phone: Comment on above: Daily until discontinued starting 2022 nonstress test nonst ress test OB Routine Daily until discontinued starting 09/25/2022 [facility] Phone: Comment on above: Daily until discontinued starting 2022 Nonrebreather mask oxygen Nonrebreather mask oxygen Respiratory Care Routine As directed - RT (PRN) until discontinued starting 08/02/2022 [facility] Phone: Comment on above: As directed - RT (PRN) until discontinue d starting 08/02/2022 Nonrebreather mask oxygen Nonrebreather mask oxygen Respiratory Care Routine As directed - RT (PRN) until discontinued starting 09/24/2022 [facility] Phone: Comment on above: As directed - RT (PRN) until discontinue d starting 09/24/2022 Nonrebreather mask oxygen Nonrebreather mask oxygen Respiratory Care Routine As directed - RT (PRN) until discontinued starting 09/24/2022 [facility] Phone: Comment on above: As directed - RT (PRN) until discontinue d starting 09/24/2022 Oxygen therapy [Minimum Data Set] Initiate Oxygen Therapy Protocol while on epidural Respiratory Care Routine Daily until discontinued starting 09/24/2022 [facility] Phone: Comment on above: Daily until discontinued starting 2022 End: 09-25-2022 SURGICAL PATHOLOGY REPORT SURGICAL PATHOLOGY REPORT Lab Routine Once for 1 Occurrences starting 09/25/2022 until 09/25/2022 [facility] Phone: Comment on above: Once for 1 Occurrences starting 09/26/19 until 09/25/2022 End: 08-02-2022 SVE SVE Point of Care Testing Routine One Time for 1 Occurrences starting 08/02/2022 until 08/02/2022 [facility] Phone: Comment on above: One Time for 1 Occurrences starting 07/17 until 08/02/2022 End: 09-24-2022 SVE SVE Point of Care Testing Routine One Time for 1 Occurrences starting 09/24/2022 until 09/24/2022 [facility] Work Phone: Comment on above: One Time for 1 Occurrences starting 09/14 until 09/24/2022 Immunizations Immunization Date Immunization Notes Care Provider Fa [facility] 09-25-2022 diphtheria, tetanus toxoids and acellular pertussis vaccine, unspecified formulation Zak Bejarano MD Work Phone: [facility] Phone: Payers Date Payer Category Payer Unknown [id number] [id number] 2014 Unknown [id number]. [id number] 1999 Unknown [id number] 2.16.8 40.1.454393.3.579.2.173 1999 Unknown [id number] 2.16.8 40.1.790284.3.579.2.173 1999 Unknown [id number] 2.16.8 40.1.830324.3.579.2.173 1999 Unknown [id number] 2.16.8 40.1.456194.3.579.2.173 1999 Unknown [id number] 2.16.8 40.1.478620.3.579.2.173 1999 Unknown [id number] 2.16.8 40.1.198059.3.579.2.173 1999 Unknown [id number] 2.16.8 40.1.189653.3.579.2.173 1999 Unknown [id number] 2.16.8 40.1.004421.3.579.2.173 1999 Unknown [id number] 2.16.8 40.1.267492.3.579.2.173 1999 Unknown [id number] 2.16.8 40.1.468261.3.579.2.173 1999 Unknown [id number] 2.16. 840.1.213625.3.579.2.175 1999 Unknown [id number] 2.16. 840.1.464280.3.579.2.175 1999 Unknown [id number] 2.16. 840.1.230300.3.579.2.175 1999 Unknown [id number] 2.16. 840.1.522150.3.579.2.175 1999 Unknown [id number] 2.16.84 0.1.136421.3.579.2.1258 1999 Unknown [id number] 2.16.84 0.1.674032.3.579.2.9 1999 Unknown [id number] 2.16.84 0.1.184827.3.579.2.9 1999 Unknown [id number] 2.16.84 0.1.873591.3.579.2.1258 1999 Unknown [id number] 2.16.84 0.1.449655.3.579.2.9 1999 Unknown [id number] 2.16.84 0.1.273758.3.579.2.9 1999 Unknown [id number] 2.16.84 0.1.446292.3.579.2.1258 1999 Unknown [id number] 2.16.84 0.1.141850.3.579.2.9 1999 Unknown [id number] 2.16.840 .1.187166.3.579.2.9 1999 Unknown [id number] 2.16.840 .1.613890.3.579.2.1259 Self-pay [id number] 2.16.840 .1.330741.3.140.1.23066.5.4 Social History Date Type Detail Facility Assertion Gender identity finding (finding) [facility] Work Phone: Assertion Finding of sexua l orientation (finding) [facility] Work Phone: Tobacco smoking status Unknown if ever smoked [facility] Work Phone: Start: 05-18-2012 End: 03-15-2021 Tobacco smoking status NHIS Never smoker [facility] Phone: Start: 05-18-2012 End: 03-15-2021 Tobacco use and exposure Never used [facility] Start: 03-15-2021 End: 09-25-2022 Alcohol intake Current non-drinker of alcohol (finding) [facility] Phone: Start: 1999 Sex Assigned At [facility]: Start: 01-13-2022 History SDOH Financial 5 [facility] Work Phone: Start: 01-13-2022 History SDOH Food Worry 1 [facility] Phone: Start: 01-19-2022 JUAN [facility] Work Phone: Start: 07-23-2022 End: 09-24-2022 Exposure to SARS-CoV-2 (event) Not sure [facility] Phone: NEGATED: Highlighted row Assertion Current drinker of alcohol (finding) [facility] Work Phone: NEGATED: Highlighted row Assertion Finding relating to drug misuse behavior (finding) [facility] Work Phone: NEGATED: Highlighted row Assertion Exposure to pollution (event) [facility] Work Phone: NEGATED: Highlighted row Assertion Tobacco user (finding) [facility] Work Phone: Clinical Notes 01-25-2022 to [...] Follow-up with your OB doctor as specified. [facility] Department phone: Dr. Asya Gruber CNM Dr. Skye Sol CN [address] [facility] [address] [facility] [address] [place] [address] Skye Russell CN [address] [facility] [address] [phone] Kenya Tinajero, MSN, QUARTZ ORIENTATOR, CNM [facility] [address] [facility] [address] [address] [facility] [address] [facility] [address] Pete Recio CN [address] [place] [place] [address] Zenaida Grant CNM [address] [place] [address] [place] [address] [phone] DIET Eat a well balanced diet focusing on foods high in fiber and protein. Drink plenty of fluids especially water. To avoid constipation you may take a mild stool softener as recommended by your doctor or interior design faculty member. ACTIVITY Gradually increase your activity. Resume exercise regimen only after advice by your doctor or interior design faculty member. Avoid lifting anything heavier than a gallon of milk for SIX weeks. Avoid driving until your doctor or interior design faculty member has given their approval. Rise slowly from [...] medications as recommended by your doctor or interior design faculty member for pain If you develop a warm, [...] vitamins as directed by your doctor or interior design faculty member. Refer to the booklet in the folder/binder for more information. If you feel you need more assistance or have questions, please call Stacey Rodriguez IBCLC, water resource consultant, at or the OB department to [...] your calf. documented in this encounter [facility] Lit Building Directory Work Phone: 09-26-2022 Hospital course Narrative Obstetrical [...] NONREACTIVE Final HIV: No results found for: [id number] Results for orders placed or performed during the hospital encounter of 09/24/22 Urinalysis Result Value Ref Range Color, UA Yellow Yellow Turbidity UA Clear Clear Glucose, Ur NEGATIVE NEGATIVE Bilirubin Urine NEGATIVE NEGATIVE Ketones, Urine TRACE (A) NEGATIVE Specific Oscar, UA 1.010 1.010 - 1.020 Urine Hgb [...] # 2.52 1.10 - 3.70 k/uL Absolute Beauregard # 0.80 0.10 - 1.20 k/uL Absolute [...] Range Expiration Date 09/27/2022,2359 Arm Band Number [id number] ABO/Rh A POSITIVE Antibody Screen NEGATIVE complications: [...] Your Medications These medications were sent to [facility], [place] - [address] - P [phone] - F [phone] [address], [place] [address] docusate 100 MG Caps ibuprofen 800 MG tablet Admit date: 09/24/2022 3:00 PM Discharge Date: 09/26/2022 Discharged to: Home in stable condition Plan: Follow up in 6 week(s) for post visit, blood pressure check, breast feeding check, and post depression check documented in this encounter [facility] [employer] Phone: 09-26-2022 History of Presen t illness [...] rate: Baseline Heart Rate: 125 Accelerations: present Jail Variability: moderate Decelerations: absent Contraction frequency: 2 minutes Position: Cephalic Membranes: ROM clear fluid Cervix: Dilation: 6-7 cm Effacement: 80 Station: -1 Consistency: soft Position: mid ASSESSMENT & PLAN: Active labor. S/P AROM. Patient progressing continue current management Provider at bedside. Admission orders received from Dr Bejarano. Amnioswab negative. documented in this encounter [facility] [employer] Phone: 08-16-2022 History of Presen t illness Narrative Explained policies and procedure of an echocardiogram/Doppler study. Patient instructed on extended satellite project site monitor indications and use. Diary sent with patient. 5-7 days documented in this encounter [employer] Phone: 08-02-2022 History of Presen t illness [...] urine sample. documented in this encounter [facility] Lit Building Directory Work Phone: 08-02-2022 Hospital Discharg e instructions Wendy Choudhary RN - 08/02/2022 6:20 PM EST OUTPATIENT DISCHARGE Dr Skye Russell CN [address] [facility] [address] [phone] ACTIVITY LIMITATIONS: ( X )Up and about [...] AND DELIVERY . documented in this encounter [employer] Phone: 01-25-2022 History of Presen t illness Narrative Explained Holter monitor and diary. documented in this encounter [employer] Phone: Evaluation note Diagnosis Women's annual routine gynecological examination documented in this encounter [facility] Phone: evaluation note* Diagnosis Heart palpitations Palpitations documented in this encounter [employer] Phone: evaluation note* Diagnosis Heart palpitations Palpitations documented in this encounter [employer] Phone: evaluation note* Diagnosis Encounter for supervision of normal , antepartum, unspecified Positive urine test documented in this encounter [employer] Phone: evaluation note* Diagnosis contractions- Primary Unspecified abnormality of labor, antepartum documented in this encounter [employer] Phone: evaluation note* Diagnosis Light headedness Dizziness and giddiness POTS (postural orthostatic tachycardia syndrome) Tachycardia, unspecified Abnormal tilt table test Other nonspecific abnormal result of function study of brain and central nervous system documented in this encounter [employer] Phone: evaluation note* Diagnosis Light headedness Dizziness and giddiness POTS (postural orthostatic tachycardia syndrome) Tachycardia, unspecified Abnormal tilt table test Other nonspecific abnormal result of function study of brain and central nervous system 29 weeks gestation of state, incidental Chest pain, unspecified type documented in this encounter [employer] Phone: evaluation note* Diagnosis Encounter for supervision of normal first in second trimester Supervision of normal first documented in this encounter [employer] Phone: evaleijogz note* Diagnosis 36 weeks gestation of state, incidental documented in this encounter [employer] Phone: evaluation note* Diagnosis Elevated blood pressure affecting , antepartum documented in this encounter [employer] Phone: evaluation note* Diagnosis Elevated blood pressure affecting , antepartum documented in this encounter [employer] Phone: evaluation note* Diagnosis (spontaneous vaginal delivery)- Primary Normal delivery Rupture of membranes with delay of delivery Term documented in this encounter [employer] Phone: Summary Purpose Family History No Family History Records Found Description Last Updated Maternal history of family history of is chemic heart disease 01/14/2020 Paternal history of family history of is chemic heart disease 01/14/2020 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s No Advanced Directives Records FoundDocuments on File Type Date Recorded Patient 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 Mercerizer Operator Helper Expl anation ACP-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 ACP-Power of Communications Intern Documents on File Type Date Recorded Patient Yarn Mercerizer Operator Helper Expl anation ACP-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 ACP-Power of Communications Intern Latest Code Status on File Code Status [...] Monitor 48 Hour Nick Quiñones APRN - CLINICAL STAFF ANESTHESIOLOGIST [address] [place] [address] Referral ID Status Reason Start Date Expiration Date Visits Re quested Visits Authorized [id number] Closed 01/13/2022 01/13/2023 1 1 Specialty Diagnoses / Procedures Referred By Contac t Referred To Contact Cardiology Diagnoses Light headedness POTS (postural orthostatic tachycardia syndrome) Abnormal tilt table test Procedures Echo 2D w doppler w color complete Jade Soto MD [address] [place], [place] [id number] Referral ID Status Reason Start Date Expiration Date Visits Re quested Visits Authorized [id number] Closed 08/04/2022 08/10/2023 1 1 Specialty Diagnoses / Procedures Referred By Contac t Referred To Contact Diagnoses Light headedness POTS (postural orthostatic tachycardia syndrome) Abnormal tilt table test 29 weeks gestation of Chest pain, unspecified type Procedures Continuous cardiac monitoring, >2 up to 14 days Jade Soto MD [address] [place] [id number] Referral ID Status Reason Start Date Expiration Date Visits Re quested Visits Authorized [id number] Closed 07/27/2022 07/27/2023 1 1 Assessments Findings Encounter Date Body mass index Telemedicine with Radha Saleem SALES PROMOTION REPRESENTATIVE 01/14/2020 Exposure to a viral disease Telemedicine [...] DATE CREATED AUTHOR AUTHOR'S ORGANIZ ATION 09/28/2022 [facility] DATE CREATED AUTHOR AUTHOR'S ORGANIZ ATION 07/08/2023 [facility] DATE CREATED AUTHOR AUTHOR'S ORGANIZ ATION 01/05/2024 [facility] d[facility] Specialists EPIC Evaluations & Outcomes (unre cognized section and content) Includes: Evaluations & Outcomes for active GoalsNo Outcomes Recorded Includes: Evaluations & Outcomes for active GoalsNo Outcomes Recorded Care Teams (unrecognized sec tion and content) Mold Capper Relationship Specialty Start Date End Date Nick Quiñones APRN - CLINICAL STAFF ANESTHESIOLOGIST [address] [id number] PCP - General Certified Nurse 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 01/13/22 Mold Capper Relationship Specialty Start Date End Date Nick Quiñones APRN - CLINICAL STAFF ANESTHESIOLOGIST [address] [place] [address] PCP - General Certified Nurse 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 01/13/22 Mold Capper Relationship Specialty Start Date End Date Nick Quiñones APRN - CLINICAL STAFF ANESTHESIOLOGIST [address] [place] [address] PCP - General Certified Nurse 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 01/13/22 Mold Capper Relationship Specialty Start Date End Date Nick Quiñones APRN - CLINICAL STAFF ANESTHESIOLOGIST [address] [place] [address] PCP - General Certified Nurse 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 01/13/22 Mold Capper Relationship Specialty Start Date End Date Nick Quiñones APRN - CLINICAL STAFF ANESTHESIOLOGIST [address] [id number] PCP - General Certified Nurse 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 01/13/22 Mold Capper Relationship Specialty Start Date End Date Nick Quiñones APRN - CLINICAL STAFF ANESTHESIOLOGIST [address] [phone] PCP - General Certified Nurse 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 01/13/22 Mold Capper Relationship Specialty Start Date End Date Nick Quiñones QUARTZ ORIENTATOR - CLINICAL STAFF ANESTHESIOLOGIST [address] [id number] PCP - General Certified Nurse 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 01/13/22 Mold Capper Relationship Specialty Start Date End Date Nick Quiñones QUARTZ ORIENTATOR - CLINICAL STAFF ANESTHESIOLOGIST [address] [id number] PCP - General Certified Nurse 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 01/13/22 Mold Capper Relationship Specialty Start Date End Date Nick Quiñones APRN - CLINICAL STAFF ANESTHESIOLOGIST [address] [id number] PCP - General Certified Nurse 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 01/13/22 Mold Capper Relationship Specialty Start Date End Date Nick Quiñones QUARTZ ORIENTATOR - CLINICAL STAFF ANESTHESIOLOGIST [address] [phone] PCP - General Certified Nurse 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 01/13/22 Reason for Visit (unrecogniz ed section and content) Specialty Diagnoses / Procedures Referred By Nii t Referred To Contact Diagnoses Heart palpitations Procedures Holter Monitor 48 Hour Nick Quiñones QUARTZ ORIENTATOR - CLINICAL STAFF ANESTHESIOLOGIST [address] [phone] Referral ID Status Reason Start Date Expiration Date Visits Re quested Visits Authorized [id number] Closed 01/13/2022 01/13/2023 1 1 Reason Comments Contractions Specialty Diagnoses / Procedures Referred By Contac t Referred To Contact Cardiology Diagnoses Light headedness POTS (postural orthostatic tachycardia syndrome) Abnormal tilt table test Procedures Echo 2D w doppler w color complete Jade Soto MD [address] [id number] Referral ID Status Reason Start Date Expiration Date Visits Re quested Visits Authorized [id number] Closed 08/04/2022 08/10/2023 1 1 Specialty Diagnoses / Procedures Referred By Nii garrido Referred To Contact Diagnoses Light headedness POTS (postural orthostatic tachycardia syndrome) Abnormal tilt table test 29 weeks gestation of Chest pain, unspecified type Procedures Continuous cardiac monitoring, >2 up to 14 days Jade Soto MD [address] [place] [id number] Referral ID Status Reason Start Date Expiration Date Visits Re quested Visits Authorized [id number] Closed 07/27/2022 07/27/2023 1 1 Reason Comments [...] mL/lumen, 1045 (Due)2100 (Due) 0900 (Due)2100 (Due) ifqaurd-mmravc-xxsqu pertussis (BOOSTRIX) injection 0.5 mL 0.5 mL, [...] every 2-3 minutes with cervical changes or [place] units (MVU) greater than 200 in a [...] Oral, EVERY 8 HOURS PRN, Starting on [place] 09/25/22 at 2228, Until Discontinued, Pain Mild [...] PRN, Dry Skin, nipple discomfort, Starting on [place] 09/25/22 at 1023, methylergonovine (METHERGINE) injection 200 [...] BE BASED ON THE PRIMARY CLINICAL RECORDS. [employer] provides no warranty or guarantee of the accuracy or completeness of information in this document.
== END 2024-01-11 20:03 | disposition home or self-care (01) ==
LOC: LAB 20:02
PROVIDERS: Visit Provider Obstetrics & Gynecology
DX: Z34.93 Encounter for supervision of normal pregnancy, unspecified, third trimester (principal); Z3A.37 37 weeks gestation of pregnancy
CPT/HCPCS: 87081

== ENCOUNTER 2024-01-22 05:05 | Inpatient (IN) | payer OTHER, BC, SELFPAY ==
[2024-01-22] VITALS (49 sets, daily range): BP systolic 110–149; BP diastolic 65–97; PULSE 62–109; TEMP 36.3–37.3
--- OUTSIDE RECORDS SUMMARY | 2024-01-22 05:09 | XMS_ITS | CCD ---
Author Organization [facility] Care Team Providers Care Padded Box Sewer Name Role Phone ROJAS, WICHO S Unavailable Unavailable ROJAS, WICHO S Unavailable Unavailable ROJAS, WICHO S Unavailable Unavailable ROJAS, WICHO S Unavailable Unavailable ROJAS, WICHO S Unavailable Unavailable ROJAS, WICHO S Unavailable Unavailable Radha Cuevas Primary Care Provider Catarino [place], Cari Smith Primary Care Provider Unav ailable Stephanie LOAN SUPERVISOR - NETWORK ACCOUNT MANAGER, Nick Stein Primary Care Provid er Stephanie LOAN SUPERVISOR - NETWORK ACCOUNT MANAGER, Nick L Primary Care Provid er Stephanie LOAN SUPERVISOR - NETWORK ACCOUNT MANAGER, Nick L Primary Care Provid er STEPHANIE NICK Sarita Primary Care Unavailable BEJARANO, ZAK N Admitting Unavailable [facility] Ymaile Attending Unavailable STEPHANIE, NICK Sarita Primary Care [...] LAM Attending Unavailable REINALDO ARRIETA Attending Unavailable CAROLE, MELO Attending Unavailable CAROLE, MELO Attending Unavailable CAROLE, MELO Attending Unavailable REINALDO ARRIETA Attending Unavailable CAROLE, MELO Attending Unavailable CAROLE, MELO Attending Unavailable CAROLE, MELO Attending Unavailable CAROLE, MELO Attending Unavailable Medications Current Medications Medication Drug Class(es) Dates Sig (Normalized) Sig (Original) acetaminophen 500 mg oral tablet (3 sources) Start: 09-25-2022 acetaminophen (TYLENOL) tablet 1,000 mg Start: 09-24-2022 acetaminophen (TYLENOL) tablet 650 mg take 2 tablets by mo ut every six hours as needed acetaminophen (TYLENOL) [...] (2 sources) Estrogen Start: 01-14-2020 Microgestin FE 1.5 1.5-30 MG-MCG Oral Tablet 01/14/2020 Provider: ethinyl [...] 500 mL infusion Start: 09-24-2022 oxytocin (ALVARO KAHILL) 30 units in 500 mL infusion MV-Min-Fe [...] Episodic Unclassified (1 source) Hip Pain / [id number]() Onset: 10-12-2017 Past or Other Problems Problem [...] Results Test Name Value Interpretation Reference Range [facility] Surgical Pathologyon 023 Surgical Pathology (NOTE) [...] SURGICAL PATHOLOGY CONSULTATION Patient Name: FABIEN PERAZA [facility] Rec: [id number] Path Number: [id number] [facility] ANATOMIC PATHOLOGY [address] [place] [phone] [facility] Comment on above: Performed By: #### U CGP #### [email or web address] [address] [place] [phone] Special Effects Technician: Diego Bashir MD Type + Screenon 09-25-2022 Type + Screen Sample Expiration 09/27/2022,2359 Arm Band Number [id number] ABO/Rh(D) A POSITIVE Antibody Screen NEGATIVE [facility] Comment on above: Performed By: #### U CGP #### [email or web address] [address] [place] [phone] Special Effects Technician: Diego Bashir MD CBC with Auto Differentialon 09-24-2022 Absolute Eos # 0.08 [facility] [employer] Absolute Immature Granulocyte 0.11 [facility] [employer] Absolute Lymph # 2.52 [facility] [employer] Absolute Yolo # 0.80 [facility] [employer] Basophils (Bld) [#/Vol] 0.05 10*3/uL [facility] [employer] Basophils/100 WBC (Bld) 1 % 0 - 2 % [facility] Eosinophils/100 WBC (Bld) 1 % 1 - 4 % [facility] Hematocrit (Bld) [Volume fraction] 31.9 % Low 36.3 - 47.1 % [facility] Hemoglobin (Bld) [Mass/Vol] 10.5 g/dL Low 11.9 - 15.1 g/dL [facility] Immature granulocytes/100 WBC (Bld) 1 % High 0 [facility] Interpretation and review of laboratory results Abnormal [facility] Lymphocytes/100 WBC (Bld) 25 % 24 - 43 % [facility] MCH (RBC) [Entitic mass] 25.1 pg Low 25.2 - 33.5 pg [facility] MCHC (RBC) [Mass/Vol] 32.9 g/dL 28.4 - 34.8 g/dL [facility] MCV (RBC) [Entitic vol] 76.3 fL Low 82.6 - 102.9 fL [facility] Monocytes/100 WBC (Bld) 8 % 3 - 12 % [facility] NRBC Automated 0.0 0.0 per 100 WBC [facility] Platelet distribution width (Bld) [Ratio] 14.7 % High 11.8 - 14.4 % [facility] Platelet mean volume (Bld) [Entitic vol] 8.7 fL 8.1 - 13.5 fL [facility] Platelets (Bld) [#/Vol] 298 10*3/uL [facility] RBC (Bld) [#/Vol] 4.18 10*6/uL 3.95 - 5.11 m/uL [facility] Segmented neutrophils/100 WBC (Bld) 64 % 36 - 65 % [facility] Segs Absolute 6.71 [facility] WBC (Bld) [#/Vol] 10.3 10*3/uL [facility] CBC with Diffon 09-24-2022 Abs. Basophil 0.05 k/uL Normal 0.00-0.20 [facility] Comment on above: Performed By: #### U CGP #### [address] [address] Special Effects Technician: Diego Bashir MD Abs.Imm.Granulocyte 0.11 k/uL Normal 0.00-0.30 [facility] Comment on above: Performed By: #### U CGP #### [address] [address] Special Effects Technician: Diego Bashir MD Abs.Neutrophil (Seg) 6.71 k/uL Normal 1.50-8.10 [facility] Comment on above: Performed By: #### U CGP #### [address] [address] Special Effects Technician: Diego Bashir MD Basophils/100 WBC (Bld) 1 % Normal 0-2 [facility] Comment on above: Performed By: #### U CGP #### [address] [address] Special Effects Technician: Diego Bashir MD Eosinophils (Bld) [#/Vol] 0.08 10*3/uL Normal 0.00-0.44 [facility] Comment on above: Performed By: #### U CGP #### [address] [address] Special Effects Technician: Diego Bashir MD Eosinophils/100 WBC (Bld) 1 % Normal 1-4 [facility] Comment on above: Performed By: #### U CGP #### [address] [address] Special Effects Technician: Diego Bashir MD Erythrocyte distribution width (RBC) [Ratio] 14.7 % High 11.8-14.4 [facility] Comment on above: Performed By: #### U CGP #### [address] [address] Special Effects Technician: Diego Bashir MD Hematocrit (Bld) [Volume fraction] 31.9 % Low 36.3-47.1 [facility] Comment on above: Performed By: #### U CGP #### [address] [address] Special Effects Technician: Diego Bashir MD Hemoglobin (Bld) [Mass/Vol] 10.5 g/dL Low 11.9-15.1 [facility] Comment on above: Performed By: #### U CGP #### [address] [address] Special Effects Technician: Diego Bashir MD Immature granulocytes/100 WBC (Bld) 1 % High 0 [facility] Comment on above: Performed By: #### U CGP #### [address] [address] Special Effects Technician: Diego Bashir MD Lymphocytes (Bld) [#/Vol] 2.52 10*3/uL Normal 1.10-3.70 [facility] Comment on above: Performed By: #### U CGP #### [address] [address] Special Effects Technician: Diego Bashir MD Lymphocytes/100 WBC (Bld) 25 % Normal 24-43 [facility] Comment on above: Performed By: #### U CGP #### [address] [address] Special Effects Technician: Diego Bashir MD MCH (RBC) [Entitic mass] 25.1 pg Low 25.2-33.5 [facility] Comment on above: Performed By: #### U CGP #### [address] [address] Special Effects Technician: Diego Bashir MD MCHC (RBC) [Mass/Vol] 32.9 g/dL Normal 28.4-34.8 [facility] Comment on above: Performed By: #### U CGP #### [address] [address] Special Effects Technician: Diego Bashir MD MCV (RBC) [Entitic vol] 76.3 fL Low 82.6-102.9 [facility] Comment on above: Performed By: #### U CGP #### [address] [address] Special Effects Technician: Diego Bashir MD Monocytes (Bld) [#/Vol] 0.80 10*3/uL Normal 0.10-1.20 [facility] Comment on above: Performed By: #### U CGP #### [address] [address] Special Effects Technician: Diego Bashir MD Monocytes/100 WBC (Bld) 8 % Normal 3-12 [facility] Comment on above: Performed By: #### U CGP #### [address] [address] Special Effects Technician: Diego Bashir MD Neutrophil (Seg) 64 % Normal 36-65 [facility] Comment on above: Performed By: #### U CGP #### [address] [address] Special Effects Technician: Diego Bashir MD NRBC Automated 0.0 per 100 WBC Normal 0.0 [facility] Comment on above: Performed By: #### U CGP #### [address] [address] Special Effects Technician: Diego Bashir MD Platelet mean volume (Bld) [Entitic vol] 8.7 fL Normal 8.1-13.5 [facility] Comment on above: Performed By: #### U CGP #### [address] [address] Special Effects Technician: Diego Bashir MD Platelets (Bld) [#/Vol] 298 10*3/uL Normal 138-453 [facility] Comment on above: Performed By: #### U CGP #### [address] [place] [address] Special Effects Technician: Diego Bashir MD RBC (Bld) [#/Vol] 4.18 10*6/uL Normal 3.95-5.11 [facility] Comment on above: Performed By: #### U CGP #### [facility] [place] [address] Special Effects Technician: Diego Bashir MD WBC (Bld) [#/Vol] 10.3 10*3/uL Normal 3.5-11.3 [facility] Comment on above: Performed By: #### U CGP #### [address] [address] Special Effects Technician: Diego Bashir MD Comp Metabolic Profon 2022 Albumin [Mass/Vol] 3.5 g/dL Normal 3.5-5.2 [facility] Comment on above: Performed By: #### U CGP #### [address] [address] Special Effects Technician: Diego Bashir MD Albumin/Glob Ratio 1.1 Normal 1.0-2.5 [facility] Comment on above: Performed By: #### U CGP #### [address] [address] Special Effects Technician: Diego Bashir MD Alkaline Phos 140 U/L High 35-104 [facility] Comment on above: Performed By: #### U CGP #### [facility] [address] [place] [address] Special Effects Technician: Diego Bashir MD ALT [Catalytic activity/Vol] 8 U/L Normal 5-33 [facility] Comment on above: Performed By: #### U CGP #### [facility] [address] [place] [address] Special Effects Technician: Diego Bashir MD Anion gap [Moles/Vol] 15 mmol/L Normal 9-17 [facility] Comment on above: Performed By: #### U CGP #### [facility] [address] [place] [address] Special Effects Technician: Diego Bashir MD AST [Catalytic activity/Vol] 14 U/L Normal <32 [facility] Comment on above: Performed By: #### U CGP #### [address] [address] Special Effects Technician: Diego Bashir MD Bilirubin [Mass/Vol] 0.3 mg/dL Normal 0.3-1.2 [facility] Comment on above: Performed By: #### U CGP #### [address] [address] Special Effects Technician: Diego Bashir MD BUN/CRE Ratio 7 Low 9-20 [facility] Comment on above: Performed By: #### U CGP #### [address] [address] Special Effects Technician: Diego Bashir MD Calcium [Mass/Vol] 8.9 mg/dL Normal 8.6-10.4 [facility] Comment on above: Performed By: #### U CGP #### [address] [address] Special Effects Technician: Diego Bashir MD Chloride [Moles/Vol] 103 mmol/L Normal 98-107 [facility] Comment on above: Performed By: #### U CGP #### [facility] [address] [place] [address] Special Effects Technician: Diego Bashir MD CO2 [Moles/Vol] 18 mmol/L Low 20-31 [facility] Comment on above: Performed By: #### U CGP #### [address] [address] Special Effects Technician: Diego Bashir MD Creatinine [Mass/Vol] 0.42 mg/dL Low 0.50-0.90 [facility] Comment on above: Performed By: #### U CGP #### [address] [phone] Special Effects Technician: Diego Bashir MD GFR/1.73 sq M.predicted among non-blacks MDRD (S/P/Bld) [Vol rate/Area] mL/min/{1.73_m2} Normal >60 [facility] Comment on above: Result Comment: [...] secretion. Performed By: #### U CGP #### [facility] [address] [place] [phone] Special Effects Technician: Diego Bashir MD Glucose [Mass/Vol] 76 mg/dL Normal 70-99 [facility] Comment on above: Performed By: #### U CGP #### [facility] [address] [place] [address] Special Effects Technician: Diego Bashir MD Potassium [Moles/Vol] 3.6 mmol/L Low 3.7-5.3 [facility] Comment on above: Performed By: #### U CGP #### [facility] [address] [place] [address] [phone] Special Effects Technician: Diego Bashir MD Protein [Mass/Vol] 6.6 g/dL Normal 6.4-8.3 [facility] Comment on above: Performed By: #### U CGP #### [facility] [address] [place] [address] Special Effects Technician: Diego Bashir MD Sodium [Moles/Vol] 136 mmol/L Normal 135-144 [facility] Comment on above: Performed By: #### U CGP #### [email or web address] [address] [place] [address] Special Effects Technician: Diego Bashir MD Urea nitrogen [Mass/Vol] 3 mg/dL Low 6-20 [facility] Comment on above: Performed By: #### U CGP #### [facility] [address] [place] [address] Special Effects Technician: Diego Bashir MD Comprehensive Metabolic Pane [facility] 09-24-2022 Albumin [Mass/Vol] 3.5 g/dL 3.5 - 5.2 g/dL [facility] Albumin/Globulin [Mass ratio] 1.1 {ratio} 1.0 - 2.5 [facility] ALP [Catalytic activity/Vol] 140 U/L High 35 - 104 U/L [facility] ALT [Catalytic activity/Vol] 8 U/L 5 - 33 U/L [facility] Anion gap [Moles/Vol] 15 mmol/L 9 - 17 mmol/L [facility] AST [Catalytic activity/Vol] 14 U/L NINF - 32 U/L [facility] Bilirubin [Mass/Vol] 0.3 mg/dL 0.3 - 1.2 mg/dL [facility] Calcium [Mass/Vol] 8.9 mg/dL 8.6 - 10.4 mg/dL [facility] Chloride [Moles/Vol] 103 mmol/L 98 - 107 mmol/L [facility] CO2 [Moles/Vol] 18 mmol/L Low 20 - 31 mmol/L [facility] Creatinine [Mass/Vol] 0.42 mg/dL Low 0.50 - 0.90 mg/dL [facility] GFR/1.73 sq M.predicted MDRD (S/P/Bld) [Vol rate/Area] - PINF [facility] Comment on above: These results are [...] [Mass/Vol] 76 mg/dL 70 - 99 mg/dL [facility] Interpretation and review of laboratory results Abnormal [facility] Potassium [Moles/Vol] 3.6 mmol/L Low 3.7 - 5.3 mmol/L [facility] Protein [Mass/Vol] 6.6 g/dL 6.4 - 8.3 g/dL [facility] Sodium [Moles/Vol] 136 mmol/L 135 - 144 mmol/L [facility] Urea nitrogen [Mass/Vol] 3 mg/dL Low 6 - 20 mg/dL [facility] Urea nitrogen/Creatinine (Bld) [Mass ratio] 7 Low 9 - 20 [facility] DRUG SCREEN MULTI URINEon Amphetamine Screen, Ur Negative NEGATIVE [facility] Comment on above: (Positive cutoff 1000 ng/mL) Barbiturate Screen, Ur Negative NEGATIVE [facility] Comment on above: (Positive cutoff 200 ng/mL) Benzodiazepine Screen, Urine Negative NEGATIVE [facility] Comment on above: (Positive cutoff 200 ng/mL) Buprenorphine Urine Negative NEGATIVE [facility] Comment on above: (Positive cutoff 5 ng/ml) Cannabinoid Scrn, Ur Negative NEGATIVE [facility] Comment on above: (Positive cutoff 50 ng/mL) Cocaine Metabolite, Urine Negative NEGATIVE [facility] Comment on above: (Positive cutoff 300 ng/mL) Fentanyl, Ur Negative NEGATIVE [facility] Comment on above: (Positive cutoff 5 ng/ml) Methadone Screen, Urine Negative NEGATIVE [facility] Comment on above: (Positive cutoff 300 ng/mL) Opiates, Urine Negative NEGATIVE [facility] Comment on above: (Positive cutoff 300 ng/mL) Oxycodone Screen, Ur Negative NEGATIVE [facility] Comment on above: (Positive cutoff 100 ng/mL) Phencyclidine, Urine Negative NEGATIVE [facility] Comment on above: (Positive cutoff 25 ng/mL) [facility] Drug Scr, Abuse, Uron 2022 Amphetamine(s),Ur Negative Normal NEG [facility] Comment on above: Result Comment: (Positive cutoff 1000 ng/mL) Performed By: #### D AU #### [facility] [address] [place] [address] [place] [address] Special Effects Technician: Artem Jones MD Barbiturate(s),Ur Negative Normal NEG [facility] Comment on above: Result Comment: (Positive cutoff 200 ng/mL) Performed By: #### D AU #### [address] [place], [place] [phone] Special Effects Technician: Artem Jones MD Benzodiazepine(s) Negative Normal NEG [facility] Comment on above: Result Comment: (Positive cutoff 200 ng/mL) Performed By: #### D AU #### [address] [place], [place] [phone] Special Effects Technician: Artem Jones MD Buprenorphrine, Ur Negative Normal NEG [facility] Comment on above: Result Comment: (Positive cutoff 5 ng/ml) Performed By: #### D AU #### [address] [place] [address] Special Effects Technician: Artem Jones MD Cannabinoid(s),Ur Negative Normal NEG [facility] Comment on above: Result Comment: (Positive cutoff 50 ng/mL) Performed By: #### D AU #### [address] [place] [address] Special Effects Technician: Artem Jones MD Cocaine Metabolite Negative Normal NEG [facility] Comment on above: Result Comment: (Positive cutoff 300 ng/mL) Performed By: #### D AU #### [address] [place] [address] Special Effects Technician: Artem Jones MD Fentanyl, Urine Negative Normal NEG [facility] Comment on above: Result Comment: (Positive cutoff 5 ng/ml) Performed By: #### D AU #### [address] [place], [place] [phone] Special Effects Technician: Artem Jones MD Methadone Ql (U) Negative Normal NEG [facility] Comment on above: Result Comment: (Positive cutoff 300 ng/mL) Performed By: #### D AU #### [facility] [address] [place] [address] [place] [place], [place] [phone] Special Effects Technician: Artem Jones MD Opiate(s), Ur Negative Normal NEG [facility] Comment on above: Result Comment: (Positive cutoff 300 ng/mL) Performed By: #### D AU #### [address] [place], [place] [phone] Special Effects Technician: Artem Jones MD Oxycodone, Urine Negative Normal [facility] Comment on above: Result Comment: (Positive cutoff 100 ng/mL) Performed By: #### D AU #### [address] [place], [place] [phone] Special Effects Technician: Artem Jones MD Phencyclidine, Ur Negative Normal NEG [facility] Comment on above: Result Comment: (Positive cutoff 25 ng/mL) Performed By: #### D AU #### [address] [place], [place] [phone] Special Effects Technician: Artem Jones MD Lactate Dehydrogenaseon 09-14 LDH [Catalytic activity/Vol] 158 U/L Normal 135-214 [facility] Comment on above: Performed By: #### U CGP #### [address] [phone] Special Effects Technician: Diego Bashir MD Cholesterol in LDL [Mass/Vol] 158 U/L 135 - 214 U/L [facility] Microscopic Urinalysison Bacteria, UA 2+ Abnormal None [facility] Epithelial Cells UA 0 TO 2 [facility] Interpretation and review of laboratory results Abnormal [facility] Mucus, UA TRACE Abnormal None [facility] RBC clumps Auto (Urine sed) [#/Area] 0 TO 2 [facility] WBC, UA 0 TO 2 [facility] No Panel Informationon 09-24 [facility] Protein / Creatinine Ratio, Urineon 09-24-2022 Creatinine, Ur 96.6 mg/dL 28.0 - 217.0 mg/dL [facility] Protein (U) [Mass/Vol] 17 mg/dL [facility] Comment on above: No normal range esta blished. Urine Total Protein Creatinine Ratio 0.18 0.00 - 0.20 [facility] Protein,Tot,[place] Uron 2022 Creatinine [Mass/Vol] 96.6 mg/dL Normal 28.0-217.0 [facility] Comment on above: Performed By: #### P RENAT #### [address] [address] Special Effects Technician: Diego Bashir MD [facility] [address] [place] [address] [place] [phone] Special Effects Technician: Artem Jones MD Tot Prot. Conc. 17 mg/dL Normal [facility] Comment on above: Result Comment: No n ormal range established. Performed By: #### P RENAT #### [address] [address] Special Effects Technician: Diego Bashir MD [facility] [address] [place] [address] [place] [address] Special Effects Technician: Artem Jones MD TP/Cre Ratio 0.18 Normal 0.00-0.20 [facility] Comment on above: Performed By: #### P RENAT #### [address] [address] Special Effects Technician: Diego Bashir MD [facility] [address] [place] [address] [place] [phone] Special Effects Technician: Artem Jones MD TYPE AND SCREENon 09-24-2022 ABO/Rh Positive [facility] Arm Band Number [id number] [facility] Expiration Date 09/27/2022,2359 [facility] Urinalysison 09-24-2022 Bilirubin Urine Negative NEGATIVE [facility] Color, UA Yellow Yellow [facility] Glucose Auto test strip (U) [Mass/Vol] Negative NEGATIVE [facility] Interpretation and review of laboratory results Abnormal [facility] Ketones (U) [Mass/Vol] TRACE Abnormal NEGATIVE [facility] Leukocyte esterase Auto test strip Ql (U) Negative NEGATIVE [facility] Nitrite Auto test strip Ql (U) Negative NEGATIVE [facility] Protein (U) [Mass/Vol] 7.5 mg/dL 5.0 - 9.0 [facility] Protein (U) [Mass/Vol] Negative NEGATIVE [facility] Specific [place], UA 1.010 1.010 - 1.020 B ON [facility] Turbidity UA Clear Clear [facility] Urine Hgb Negative NEGATIVE [facility] Urobilinogen, Urine Normal Normal [facility] Urinalysis, Routineon 2022 Bilirubin, SemiQt,Ur Negative Normal NEG [facility] Comment on above: Performed By: #### U CGP #### [email or web address] [address] [place], [place] [phone] Special Effects Technician: Diego Bashir MD Blood, Urine Negative Normal NEG [facility] Comment on above: Performed By: #### U CGP #### [email or web address] [address] [place] [address] [phone] Special Effects Technician: Diego Bashir MD Clarity (U) Clear Normal CLEAR [facility] Comment on above: Performed By: #### U CGP #### [email or web address] [address] [place] [address] [phone] Special Effects Technician: Diego Bashir MD Color (U) Yellow Normal YEL [facility] Comment on above: Performed By: #### U CGP #### [address] [address] Special Effects Technician: Diego Bashir MD Glucose Ql (U) Negative Normal NEG [facility] Comment on above: Performed By: #### U CGP #### [address] [address] Special Effects Technician: Diego Bashir MD Ketones Ql (U) TRACE Abnormal NEG [facility] Comment on above: Performed By: #### U CGP #### [address] [address] [address] Special Effects Technician: Diego Bashir MD Leukocyte esterase Test strip Ql (U) Negative Normal NEG [facility] Comment on above: Performed By: #### U CGP #### [address] [address] Special Effects Technician: Diego Bashir MD Nitrite,Ur Negative Normal NEG [facility] Comment on above: Performed By: #### U CGP #### [address] [address] Special Effects Technician: Diego Bashir MD PH,Ur 7.5 Normal 5.0-9.0 [facility] Comment on above: Performed By: #### U CGP #### [address] [address] Special Effects Technician: Diego Bashir MD Protein Ql (U) Negative Normal NEG [facility] Comment on above: Performed By: #### U CGP #### [address] [address] Special Effects Technician: Diego Bashir MD Spec. [place],Ur 1.010 Normal 1.010-1.020 [facility] Comment on above: Performed By: #### U CGP #### [address] [address] Special Effects Technician: Diego Bashir MD Urobilinogen,Ur Normal Normal NORM [facility] Comment on above: Performed By: #### U CGP #### [address] [address] Special Effects Technician: Diego Bashir MD Urinalysis,Microon 3 Bacteria 2+ Abnormal NONE [facility] Comment on above: Performed By: #### U CGP #### [address] [address] Special Effects Technician: Diego Bashir MD Epithelial cells LM Ql (Urine sed) 0 TO 2 Normal 0-25 [facility] Comment on above: Performed By: #### U CGP #### [address] [address] Special Effects Technician: Diego Bashir MD Mucus Strands TRACE Abnormal NONE [facility] Comment on above: Performed By: #### U CGP #### [address] [address] Special Effects Technician: Diego Bashir MD Urine RBC's 0 TO 2 Normal 0-2 [facility] Comment on above: Performed By: #### U CGP #### [address] [address] Special Effects Technician: Diego Bashir MD Urine WBC's 0 TO 2 Normal 0-5 [facility] Comment on above: Performed By: #### U CGP #### [address] [address] Special Effects Technician: Diego Bashir MD Rule Out Grp.B Strepon 09-18 Rule Out Grp.B Strep Specimen Descriptio n .VAGINA Culture NEGATIVE FOR GROUP B STREPTOCOCCI Report Status FINAL 09/18/2022 Normal [facility] Comment on above: Performed By: #### R OGBS #### [address] [address] Special Effects Technician: Diego Bashir MD EVENT MONITORon 09-16-2022 EVENT MONITOR [address] [id number] EVENT MONITOR PATIENT NAME: FABIEN PERAZA : 2000 MED REC NO: [id number] ROOM: ACCOUNT NO: [id number] ADMIT DATE: 08/16/2022 PROVIDER: Jade Soto MD [...] SB/JENIFER_EDIT Doc#: Unknown CC: ASHELY Padilla Normal [facility] CBCon 09-14-2022 Erythrocyte distribution width (RBC) [Ratio] 14.4 % Normal 11.8-14.4 [facility] Comment on above: Performed By: #### P RENAT #### [place] [id number] Special Effects Technician: Diego Bashir MD [address] [place] [address] Special Effects Technician: Artem Jones MD Hematocrit (Bld) [Volume fraction] 31.2 % Low 36.3-47.1 [facility] Comment on above: Performed By: #### P RENAT #### [address] [id number] Special Effects Technician: Diego Bashir MD [address] [place] [address] Special Effects Technician: Artem Jones MD Hemoglobin (Bld) [Mass/Vol] 9.8 g/dL Low 11.9-15.1 [facility] Comment on above: Performed By: #### P RENAT #### [address] [address] Special Effects Technician: Diego Bashir MD [address] [place] [phone] Special Effects Technician: Artem Jones MD MCH (RBC) [Entitic mass] 24.9 pg Low 25.2-33.5 [facility] Comment on above: Performed By: #### P RENAT #### [address] [address] Special Effects Technician: Diego Bashir MD [address] [place] [phone] Special Effects Technician: Artem Jones MD MCHC (RBC) [Mass/Vol] 31.4 g/dL Normal 28.4-34.8 [facility] Comment on above: Performed By: #### P RENAT #### [address] [address] Special Effects Technician: Diego Bashir MD [address] [place] [phone] Special Effects Technician: Artem Jones MD MCV (RBC) [Entitic vol] 79.2 fL Low 82.6-102.9 [facility] Comment on above: Performed By: #### P RENAT #### [address] [address] Special Effects Technician: Diego Bashir MD [address] [place] [address] Special Effects Technician: Artem Jones MD NRBC Automated 0.0 per 100 WBC Normal 0.0 [facility] Comment on above: Performed By: #### P RENAT #### [address] [address] Special Effects Technician: Diego Bashir MD [address] [place], [place] [phone] Special Effects Technician: Artem Jones MD Platelet mean volume (Bld) [Entitic vol] 8.3 fL Normal 8.1-13.5 [facility] Comment on above: Performed By: #### P RENAT #### [address] [address] Special Effects Technician: Diego Bashir MD [address] [place] [phone] Special Effects Technician: Artem Jones MD Platelets (Bld) [#/Vol] 267 10*3/uL Normal 138-453 [facility] Comment on above: Performed By: #### P RENAT #### [address] [address] Special Effects Technician: Diego Bashir MD [address] [place] [address] Special Effects Technician: Artem Jones MD RBC (Bld) [#/Vol] 3.94 10*6/uL Low 3.95-5.11 [facility] Comment on above: Performed By: #### P RENAT #### [address] [address] Special Effects Technician: Diego Bashir MD [address] [place] [address] Special Effects Technician: Artem Jones MD WBC (Bld) [#/Vol] 10.7 10*3/uL Normal 3.5-11.3 [facility] Comment on above: Performed By: #### P RENAT #### [address] [address] Special Effects Technician: Diego Bashir MD [address] [place] [phone] Special Effects Technician: Artem Jones MD Hematocrit (Bld) [Volume fraction] 31.2 % Low 36.3 - 47.1 % [facility] Hemoglobin (Bld) [Mass/Vol] 9.8 g/dL Low 11.9 - 15.1 g/dL [facility] Interpretation and review of laboratory results Abnormal [facility] MCH (RBC) [Entitic mass] 24.9 pg Low 25.2 - 33.5 pg [facility] MCHC (RBC) [Mass/Vol] 31.4 g/dL 28.4 - 34.8 g/dL [facility] MCV (RBC) [Entitic vol] 79.2 fL Low 82.6 - 102.9 fL [facility] NRBC Automated 0.0 0.0 per 100 WBC [facility] Platelet distribution width (Bld) [Ratio] 14.4 % 11.8 - 14.4 % [facility] Platelet mean volume (Bld) [Entitic vol] 8.3 fL 8.1 - 13.5 fL [facility] Platelets (Bld) [#/Vol] 267 10*3/uL [facility] RBC (Bld) [#/Vol] 3.94 10*6/uL Low 3.95 - 5.11 m/uL [facility] WBC (Bld) [#/Vol] 10.7 10*3/uL [facility] Comp Metabolic Profon 2022 Albumin [Mass/Vol] 3.3 g/dL Low 3.5-5.2 [facility] Comment on above: Performed By: #### P RENAT #### [facility] [address] [place], [place] [id number] Special Effects Technician: Diego Bashir MD [facility] [address] [place] [address] Special Effects Technician: Artem Jones MD Albumin/Glob Ratio 1.0 Normal 1.0-2.5 [facility] Comment on above: Performed By: #### P RENAT #### [facility] [address] [place], [place] [phone] Special Effects Technician: Diego Bashir MD [facility] [address] [place] [address] Dr. [place], [place] [phone] Special Effects Technician: Artem Jones MD Alkaline Phos 124 U/L High 35-104 [facility] Comment on above: Performed By: #### P RENAT #### [facility] [address] [place] [address] Special Effects Technician: Diego Bashir MD [facility] [address] [place] [address] Dr. [place], [place] [id number] Special Effects Technician: Artem Jones MD ALT [Catalytic activity/Vol] 7 U/L Normal 5-33 [facility] Comment on above: Performed By: #### P RENAT #### [address] [address] Special Effects Technician: iDego Bashir MD [address] [place] [phone] Special Effects Technician: Artem Jones MD Anion gap [Moles/Vol] 11 mmol/L Normal 9-17 [facility] Comment on above: Performed By: #### P RENAT #### [address] [address] Special Effects Technician: Diego Bashir MD [address] [place] [phone] Special Effects Technician: Artem Jones MD AST [Catalytic activity/Vol] 12 U/L Normal <32 [facility] Comment on above: Performed By: #### P RENAT #### [facility] [address] [place] [address] Special Effects Technician: Diego Bashir MD [facility] [address] [place] [address] Dr. [place] [phone] Special Effects Technician: Artem Jones MD Bilirubin [Mass/Vol] 0.2 mg/dL Low 0.3-1.2 [facility] Comment on above: Performed By: #### P RENAT #### [address] [address] Special Effects Technician: Diego Bashir MD [facility] [address] [place] [address] [place] [address] Special Effects Technician: Artem Jones MD BUN/CRE Ratio 8 Low 9-20 [facility] Comment on above: Performed By: #### P RENAT #### [address] [address] Special Effects Technician: Diego Bashir MD [facility] [address] [place] [address] [place] [address] Special Effects Technician: Artem Jones MD Calcium [Mass/Vol] 9.4 mg/dL Normal 8.6-10.4 [facility] Comment on above: Performed By: #### P RENAT #### [address] [address] Special Effects Technician: Diego Bashir MD [facility] [address] [place] [address] [place] [address] Special Effects Technician: Artem Jones MD Chloride [Moles/Vol] 105 mmol/L Normal 98-107 [facility] Comment on above: Performed By: #### P RENAT #### [address] [address] Special Effects Technician: Diego Bashir MD [facility] [address] [place] [address] [place] [phone] Special Effects Technician: Artem Jones MD CO2 [Moles/Vol] 22 mmol/L Normal 20-31 [facility] Comment on above: Performed By: #### P RENAT #### [address] [address] Special Effects Technician: Diego Bashir MD [facility] [address] [place] [address] [place] [address] Special Effects Technician: Artem Jones MD Creatinine [Mass/Vol] 0.50 mg/dL Normal 0.50-0.90 [facility] Comment on above: Performed By: #### P RENAT #### [place] [address] [place] [address] Special Effects Technician: Diego Bashir MD [facility] [address] [place] [address] [place] [address] Special Effects Technician: Artem Jones MD GFR/1.73 sq M.predicted among non-blacks MDRD (S/P/Bld) [Vol rate/Area] mL/min/{1.73_m2} Normal >60 [facility] Comment on above: Result Comment: [...] secretion. Performed By: #### P RENAT #### [place] [address] [place] [address] Special Effects Technician: Diego Bashir MD [facility] [address] [place] [address] [place] [address] Special Effects Technician: Artem Jones MD Glucose [Mass/Vol] 108 mg/dL High 70-99 [facility] Comment on above: Performed By: #### P RENAT #### [address] [address] Special Effects Technician: Diego Bashir MD [facility] [address] [place] [address] [place] [address] Special Effects Technician: Artem Jones MD Potassium [Moles/Vol] 3.8 mmol/L Normal 3.7-5.3 [facility] Comment on above: Performed By: #### P RENAT #### [address] [address] Special Effects Technician: Diego Bashir MD [facility] [address] [place] [address] Dr. [place], [place] [phone] Special Effects Technician: Artem Jones MD Protein [Mass/Vol] 6.5 g/dL Normal 6.4-8.3 [facility] Comment on above: Performed By: #### P RENAT #### [facility] [address] [place] [address] Special Effects Technician: Diego Bashir MD [facility] [address] [place] [address] Dr. [place], [place] [phone] Special Effects Technician: Artem Jones MD Sodium [Moles/Vol] 138 mmol/L Normal 135-144 [facility] Comment on above: Performed By: #### P RENAT #### [facility] [address] [place] [address] Special Effects Technician: Diego Bashir MD [facility] [address] [place] [address] Dr. [place] [phone] Special Effects Technician: Artem Jones MD Urea nitrogen [Mass/Vol] 4 mg/dL Low 6-20 [facility] Comment on above: Performed By: #### P RENAT #### [facility] [address] [place] [address] Special Effects Technician: Diego Bashir MD [facility] [address] [place] [address] Dr. [place] [phone] Special Effects Technician: Artem Jones MD Comprehensive Metabolic Pane [facility] 09-14-2022 Albumin [Mass/Vol] 3.3 g/dL Low 3.5 - 5.2 g/dL [facility] Albumin/Globulin [Mass ratio] 1.0 {ratio} 1.0 - 2.5 [facility] ALP [Catalytic activity/Vol] 124 U/L High 35 - 104 U/L [facility] ALT [Catalytic activity/Vol] 7 U/L 5 - 33 U/L [facility] Anion gap [Moles/Vol] 11 mmol/L 9 - 17 mmol/L [facility] AST [Catalytic activity/Vol] 12 U/L NINF - 32 U/L [facility] Bilirubin [Mass/Vol] 0.2 mg/dL Low 0.3 - 1.2 mg/dL [facility] Calcium [Mass/Vol] 9.4 mg/dL 8.6 - 10.4 mg/dL [facility] Chloride [Moles/Vol] 105 mmol/L 98 - 107 mmol/L [facility] CO2 [Moles/Vol] 22 mmol/L 20 - 31 mmol/L [facility] Creatinine [Mass/Vol] 0.5 mg/dL 0.50 - 0.90 mg/dL [facility] GFR/1.73 sq M.predicted MDRD (S/P/Bld) [Vol rate/Area] - PINF [facility] Comment on above: These results are [...] 108 mg/dL High 70 - 99 mg/dL [facility] Interpretation and review of laboratory results Abnormal [facility] Potassium [Moles/Vol] 3.8 mmol/L 3.7 - 5.3 mmol/L [facility] Protein [Mass/Vol] 6.5 g/dL 6.4 - 8.3 g/dL [facility] Sodium [Moles/Vol] 138 mmol/L 135 - 144 mmol/L [facility] Urea nitrogen [Mass/Vol] 4 mg/dL Low 6 - 20 mg/dL [facility] Urea nitrogen/Creatinine (Bld) [Mass ratio] 8 Low 9 - 20 [facility] Protein / Creatinine Ratio, Urineon 09-14-2022 Creatinine, Ur 110.6 mg/dL 28.0 - 217.0 mg/dL [facility] Protein (U) [Mass/Vol] 13 mg/dL [facility] Comment on above: No normal range esta blished. Urine Total Protein Creatinine Ratio 0.12 0.00 - 0.20 [facility] [employer] [facility] [employer] Protein,Tot,[place] [employer]ron 2022 Creatinine [Mass/Vol] 110.6 mg/dL Normal 28.0-217.0 [facility] Comment on above: Performed By: #### U RTPRT #### [email or web address] [facility] [place], [place] [id number] Special Effects Technician: Diego Bashir MD Tot Prot. Conc. 13 mg/dL Normal [facility] Comment on above: Result Comment: No n ormal range established. Performed By: #### U RTPRT #### [email or web address] [facility] [place], [place] [phone] Special Effects Technician: Diego Bashir MD TP/Cre Ratio 0.12 Normal 0.00-0.20 [facility] Comment on above: Performed By: #### U RTPRT #### [email or web address] [address], [place] [id number] Special Effects Technician: Diego Bashir MD US OB FOLLOW UP TRANSABDOMIN AL APPROACHon 09-12-2022 US OB FOLLOW UP TRANSABDOMINAL APPROACH Growth Ultrasound ? Viable 35 week, 5 day SIUP EFW= 65% AC>HC Vertex Anterior placenta ELEONORA= 12.8 cm Interpreted by: Arin Blake DO Signed by: Arin Blake DO 09/12/22 Final result Normal [facility] US OB FOLLOW UP TRANSABDOMIN AL APPROACHon 08-29-2022 US OB FOLLOW UP TRANSABDOMINAL APPROACH Growth Ultrasound ? Viable 31 week, 4 day SIUP EFW= 53% Vertex Anterior placenta ELEONORA= 11.5 cm Cx length= 4.1 cm ? Interpreted by: Arin Blake DO Signed by: Arin Blake DO 08/29/22 Final result Normal [facility] CBC with Auto Differentialon 08-25-2022 Absolute Eos # 0.11 [facility] Absolute Immature Granulocyte 0.10 [facility] Absolute Lymph # 2.10 [facility] URS [facility] Absolute [place] # 0.52 [facility] Basophils (Bld) [#/Vol] 0.04 10*3/uL [facility] Basophils/100 WBC (Bld) 0 % 0 - 2 % [facility] Eosinophils/100 WBC (Bld) 1 % 1 - 4 % [facility] Hematocrit (Bld) [Volume fraction] 33.1 % Low 36.3 - 47.1 % [facility] Hemoglobin (Bld) [Mass/Vol] 10.5 g/dL Low 11.9 - 15.1 g/dL [facility] Immature granulocytes/100 WBC (Bld) 1 % High 0 [facility] Interpretation and review of laboratory results Abnormal [facility] Lymphocytes/100 WBC (Bld) 23 % Low 24 - 43 % [facility] MCH (RBC) [Entitic mass] 25.9 pg 25.2 - 33.5 pg [facility] MCHC (RBC) [Mass/Vol] 31.7 g/dL 28.4 - 34.8 g/dL [facility] MCV (RBC) [Entitic vol] 81.7 fL Low 82.6 - 102.9 fL [facility] Monocytes/100 WBC (Bld) 6 % 3 - 12 % [facility] NRBC Automated 0.0 0.0 per 100 WBC [facility] Platelet distribution width (Bld) [Ratio] 14.4 % 11.8 - 14.4 % [facility] Platelet mean volume (Bld) [Entitic vol] 9.1 fL 8.1 - 13.5 fL [facility] Platelets (Bld) [#/Vol] 301 10*3/uL [facility] RBC (Bld) [#/Vol] 4.05 10*6/uL 3.95 - 5.11 m/uL [facility] RBC (Bld) [#/Vol] MICROCYTOSIS PRESENT [facility] Segmented neutrophils/100 WBC (Bld) 69 % High 36 - 65 % [facility] Segs Absolute 6.28 [facility] WBC (Bld) [#/Vol] 9.2 10*3/uL [facility] CBC with Diffon 08-25-2022 Abs. Basophil 0.04 k/uL Normal 0.00-0.20 [facility] Comment on above: Performed By: #### C DP, GLUSC #### [facility] [address] [place] [address] Special Effects Technician: Diego Bashir MD Abs.Imm.Granulocyte 0.10 k/uL Normal 0.00-0.30 [facility] Comment on above: Performed By: #### C DP, GLUSC #### [facility] [address] [place] [address] Special Effects Technician: Diego Bashir MD Abs.Neutrophil (Seg) 6.28 k/uL Normal 1.50-8.10 [facility] Comment on above: Performed By: #### C DP, GLUSC #### [facility] [address] [place] [address] Special Effects Technician: Diego Bashir MD Basophils/100 WBC (Bld) 0 % Normal 0-2 [facility] Comment on above: Performed By: #### C DP, GLUSC #### [facility] [address] [place] [address] Special Effects Technician: Diego Bashir MD Eosinophils (Bld) [#/Vol] 0.11 10*3/uL Normal 0.00-0.44 [facility] Comment on above: Performed By: #### C DP, GLUSC #### [facility] [address] [place] [address] Special Effects Technician: Diego Bashir MD Eosinophils/100 WBC (Bld) 1 % Normal 1-4 [facility] Comment on above: Performed By: #### C DP, GLUSC #### [facility] [address] [place] [address] Special Effects Technician: Diego Bashir MD Erythrocyte distribution width (RBC) [Ratio] 14.4 % Normal 11.8-14.4 [facility] Comment on above: Performed By: #### C DP, GLUSC #### [address] [address] Special Effects Technician: Diego Bashir MD Hematocrit (Bld) [Volume fraction] 33.1 % Low 36.3-47.1 [facility] Comment on above: Performed By: #### C DP, GLUSC #### [address] [address] Special Effects Technician: Diego Bashir MD Hemoglobin (Bld) [Mass/Vol] 10.5 g/dL Low 11.9-15.1 [facility] Comment on above: Performed By: #### C DP, GLUSC #### [address] [address] Special Effects Technician: Diego Bashir MD Immature granulocytes/100 WBC (Bld) 1 % High 0 [facility] Comment on above: Performed By: #### C DP, GLUSC #### [address] [address] Special Effects Technician: Diego Bashir MD Lymphocytes (Bld) [#/Vol] 2.10 10*3/uL Normal 1.10-3.70 [facility] Comment on above: Performed By: #### C DP, GLUSC #### [address] [address] Special Effects Technician: Diego Bashir MD Lymphocytes/100 WBC (Bld) 23 % Low 24-43 [facility] Comment on above: Performed By: #### C DP, GLUSC #### [address] [address] Special Effects Technician: Diego Bashir MD MCH (RBC) [Entitic mass] 25.9 pg Normal 25.2-33.5 [facility] Comment on above: Performed By: #### C DP, GLUSC #### [address] [address] Special Effects Technician: Diego Bashir MD MCHC (RBC) [Mass/Vol] 31.7 g/dL Normal 28.4-34.8 [facility] Comment on above: Performed By: #### C DP, GLUSC #### [address] [address] Special Effects Technician: Diego Bashir MD MCV (RBC) [Entitic vol] 81.7 fL Low 82.6-102.9 [facility] Comment on above: Performed By: #### C DP, GLUSC #### [place] [address] Special Effects Technician: Diego Bashir MD Monocytes (Bld) [#/Vol] 0.52 10*3/uL Normal 0.10-1.20 [facility] Comment on above: Performed By: #### C DP, GLUSC #### [address] [address] Special Effects Technician: Diego Bashir MD Monocytes/100 WBC (Bld) 6 % Normal 3-12 [facility] Comment on above: Performed By: #### C DP, GLUSC #### [address] [address] Special Effects Technician: Diego Bashir MD Neutrophil (Seg) 69 % High 36-65 [facility] Comment on above: Performed By: #### C DP, GLUSC #### [address] [address] Special Effects Technician: Diego Bashir MD NRBC Automated 0.0 per 100 WBC Normal 0.0 [facility] Comment on above: Performed By: #### C DP, GLUSC #### [address] [address] Special Effects Technician: Diego Bashir MD Platelet mean volume (Bld) [Entitic vol] 9.1 fL Normal 8.1-13.5 [facility] Comment on above: Performed By: #### C DP, GLUSC #### [address] [address] Special Effects Technician: Diego Bashir MD Platelets (Bld) [#/Vol] 301 10*3/uL Normal 138-453 [facility] Comment on above: Performed By: #### C DP, GLUSC #### [address] [address] Special Effects Technician: Diego Bashir MD RBC (Bld) [#/Vol] 4.05 10*6/uL Normal 3.95-5.11 [facility] Comment on above: Performed By: #### C DP, GLUSC #### [address] [address] Special Effects Technician: Diego Bashir MD RBC morphology finding Nom (Bld) MICROCYTOSIS PRESENT Normal [facility] Comment on above: Performed By: #### C DP, GLUSC #### [address] [address] Special Effects Technician: Diego Bashir MD WBC (Bld) [#/Vol] 9.2 10*3/uL Normal 3.5-11.3 [facility] Comment on above: Performed By: #### C DP, GLUSC #### [address] [address] Special Effects Technician: Diego Bashir MD Glucose [place]r 50gon 2022 Glucose [Mass/Vol] 142 mg/dL High 70-135 [facility] Comment on above: Performed By: #### C DP, GLUSC #### [email or web address] [address] [place] [address] Special Effects Technician: Diego Bashir MD Glu Administered via Glucola [facility] Comment on above: Performed By: #### C DP, GLUSC #### [email or web address] [address] [place] [address] Special Effects Technician: Diego Bashir MD Glucose tolerance, 1 houron 08-25-2022 GLU ADMN Glucola [facility] Glucose tolerance screen 50g 142 mg/dL High 70 - 135 mg/dL [facility] Interpretation and review of laboratory results Abnormal [facility] Echo 2D w doppler w color co mpleteon 08-16-2022 [facility] Transthoracic Echocardiography Report (TTE) Patient Name KARMEN Date of Study 08/16/2022 FABIEN Ovalle Date of 2000 Gender Female Age 21 year(s) Race Room Number Height: 62 inch, 157.48 cm Corporate ID [id number] Weight: 197 pounds, 89.4 kg # Patient Acct [id number] BSA: 1.9 m^2 BMI: 36.03 # kg/m^2 MR # [id number] Client Relations Representative Work,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 Procedure Date Date: 08/16/2022 Start: 08:31 AM Study Location: [facility] Indications:Lighthead edness. History / Tech. [...] Calculations: LVIDd:4.97 cm(3.7 - 5.6 cm) Diastolic Volume:95.51526 ml LVIDs:3.11 cm(2.2 - 4.0 cm) Systolic [...] velocity:0.13 m/s Lateral Wall E/E':5.26 MHPN MHT [facility] Jose A Chandler MD - 08/16/2022 [facility] Transthoracic Echocardiography Report (TTE) Patient Name KARMEN Date of Study 08/16/2022 FABIEN Ovalle Date of 2000 Gender Female Age 21 year(s) Race Room Number Height: 62 inch, 157.48 cm Corporate ID [id number] Weight: 197 pounds, 89.4 kg # Patient Acct [id number] BSA: 1.9 m^2 BMI: 36.03 # kg/m^2 MR # [id number] Client Relations Representative Work,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 Procedure Date Date: 08/16/2022 Start: 08:31 AM Study Location: [facility] Indications:Ruben coles. History / Tech. [...] Calculations: LVIDd:4.97 cm(3.7 - 5.6 cm) Diastolic Volume:95.50815 ml LVIDs:3.11 cm(2.2 - 4.0 cm) Systolic [...] E' velocity:0.13 m/s Lateral Wall E/E':5.[address] [facility] [employer] Work Phone: Echo 2D w doppler w color co mpleteOrdered By: Jose A Chandler on 08-16-2022 [facility] Work Phone: Urinalysison 08-02-2022 Bilirubin Urine Negative NEGATIVE [facility] Color, UA Yellow Yellow [facility] Glucose, Ur Negative NEGATIVE [facility] Interpretation and review of laboratory results Abnormal [facility] Ketones Ql (U) Negative NEGATIVE [facility] Leukocyte esterase Test strip Ql (U) Negative NEGATIVE [facility] Nitrite, Urine Negative NEGATIVE [facility] pH, UA 7.0 5.0 - 9.0 [facility] Protein, UA Negative NEGATIVE [facility] Specific [place], UA Low 1.010 - 1.020 B ON [facility] Turbidity UA Clear Clear [facility] Urine Hgb Negative NEGATIVE [facility] Urobilinogen, Urine Normal Normal [facility] Urinalysis, Routineon 2022 Bilirubin, SemiQt,Ur Negative Normal NEG [facility] Comment on above: Performed By: #### U A #### [facility] [address] [place] [address] [place] [address] Special Effects Technician: Artem Jones MD Blood, Urine Negative Normal NEG [facility] Comment on above: Performed By: #### U A #### [facility] [address] [place] [address] Dr. [place] [id number] Special Effects Technician: Artem Jones MD Clarity (U) Clear Normal CLEAR [facility] Comment on above: Performed By: #### U A #### [facility] [address] [place] [address] Special Effects Technician: Artem Jones MD Color (U) Yellow Normal YEL [facility] Comment on above: Performed By: #### U A #### [facility] [address] [place] [address] Special Effects Technician: Artem Jones MD Glucose Ql (U) Negative Normal NEG [facility] Comment on above: Performed By: #### U A #### [facility] [address] [place] [address] Dr. [place], [place] [id number] Special Effects Technician: Artem Jones MD Ketones Ql (U) Negative Normal NEG [facility] Comment on above: Performed By: #### U A #### [facility] [address] [place] [address] Dr. [place], [place] [id number] Special Effects Technician: Artem Jones MD Leukocyte esterase Test strip Ql (U) Negative Normal NEG [facility] Comment on above: Performed By: #### U A #### [address] [place], [place] [id number] Special Effects Technician: Artem Jones MD Nitrite,Ur Negative Normal NEG [facility] Comment on above: Performed By: #### U A #### [facility] [address] [place] [address] Dr. [place], [place] [id number] Special Effects Technician: Artem Jones MD PH,Ur 7.0 Normal 5.0-9.0 [facility] Comment on above: Performed By: #### U A #### [address] [place], [place] [id number] Special Effects Technician: Artem Jones MD Protein Ql (U) Negative Normal NEG [facility] Comment on above: Performed By: #### U A #### [facility] [address] [place] [address] Dr. [place], [place] [id number] Special Effects Technician: Artem Jones MD Spec. [place],Ur <1.005 Low 1.010-1.020 [facility] Comment on above: Performed By: #### U A #### [address] [place], [place] [id number] Special Effects Technician: Artem Jones MD Urobilinogen,Ur Normal Normal NORM [facility] Comment on above: Performed By: #### U A #### [facility] [address] [place] [address] Special Effects Technician: Artem Jones MD Cult,Urineon 02-23-2022 Cult,Urine Specimen Description .CLEAN CATCH URINE Culture KLEBSIELLA PNEUMONIAE >[id number] CFU/ML Report Status FINAL 02/23/2022 SUSCEPTIBILITY Organism [...] <=20 SUSCEPTIBLE Piperacillin/Tazobact am <=4 SUSCEPTIBLE Susceptible [facility] Comment on above: Performed By: #### U RC #### [address] [id number] Special Effects Technician: Diego Bashir MD [facility] [address] [place] [address] Special Effects Technician: Artem Jones MD Chlamydia/GC DNA, Uron 02-22 Chlamydia Probe, Ur Negative Normal NEG [facility] Comment on above: Result Comment: [...] target. Performed By: #### U CGP #### [address] [place] [address] Special Effects Technician: Diego Bashir MD Gonorrhea Probe, Ur Negative Normal NEG [facility] Comment on above: Result Comment: [...] target. Performed By: #### U CGP #### [address] [id number] Special Effects Technician: Diego Bashir MD HIV Ag/Abon 02-22-2022 HIV Ag/Ab Non-Reactive Normal [facility] Comment on above: Result Comment: No l aboratory evidence of HIV infection. If acute HIV infection is suspected, consider testing for HIV-1 RNA. Performed By: #### H IVCMB, AHCV #### [address] [id number] Special Effects Technician: Diego Bashir MD Hep C Abon 02-22-2022 [...] Performed By: #### H IVCMB, AHCV #### [address] [id number] Special Effects Technician: Diego Bashir MD Profileon 2 T.pallidum Ab Screen Non-Reactive Normal [facility] Comment on above: Result Comment: T. pallidum antibodies are not detected. There is no serological evidence of infection with T. pallidum (early primary syphilis cannot be excluded). Retest in 2-4 weeks if syphilis is clinically suspect. Performed By: #### P RENAT #### [address] [id number] Special Effects Technician: Diego Bashir MD [address] [place] [phone] Special Effects Technician: Artem Jones MD Hep B Surf Ag Non-Reactive Normal NR [facility] Comment on above: Performed By: #### P RENAT #### [facility] [address], [place] [id number] Special Effects Technician: Diego Bashir MD [facility] [address] [place] [phone] Special Effects Technician: Artem Jones MD Rubella Ab, IgG 67.8 IU/mL Normal [facility] Comment on above: Result Comment: REFERENCE RANGE: <5.0 NON-REACTIVE (non-immune) 5.0 TO 9.9 EQUIVOCAL >=10.0 REACTIVE (immune) Performed By: #### P RENAT #### [address] [place], [place] [id number] Special Effects Technician: Diego Bashir MD [facility] [address] [place] [address] [place] [phone] Special Effects Technician: Artem Jones MD Profile Ion 022 Absolute Eos # 0.10 [facility] Absolute Immature Granulocyte 0.05 [facility] Absolute Lymph # 2.73 [facility] Absolute Yolo # 0.69 [facility] Basophils (Bld) [#/Vol] 0.07 10*3/uL [facility] Basophils/100 WBC (Bld) 1 % 0 - 2 % [facility] Eosinophils/100 WBC (Bld) 1 % 1 - 4 % [facility] Hematocrit (Bld) [Volume fraction] 37.3 % 36.3 - 47.1 % [facility] Hemoglobin (Bld) [Mass/Vol] 12.2 g/dL 11.9 - 15.1 g/dL [facility] Hepatitis B Surface Ag Non-Reactive NONREACTIVE [facility] Immature granulocytes/100 WBC (Bld) 1 % High 0 [facility] Interpretation and review of laboratory results Abnormal [facility] Lymphocytes/100 WBC (Bld) 28 % 24 - 43 % [facility] MCH (RBC) [Entitic mass] 28.0 pg 25.2 - 33.5 pg [facility] MCHC (RBC) [Mass/Vol] 32.7 g/dL 28.4 - 34.8 g/dL [facility] MCV (RBC) [Entitic vol] 85.7 fL 82.6 - 102.9 fL [facility] Monocytes/100 WBC (Bld) 7 % 3 - 12 % [facility] NRBC Automated 0.0 0.0 per 100 WBC [facility] Platelet distribution width (Bld) [Ratio] 12.7 % 11.8 - 14.4 % [facility] Platelet mean volume (Bld) [Entitic vol] 9.3 fL 8.1 - 13.5 fL [facility] Platelets (Bld) [#/Vol] 300 10*3/uL [facility] RBC (Bld) [#/Vol] 4.35 10*6/uL 3.95 - 5.11 m/uL [facility] Rubella virus IgG Ql (S) 67.8 IU/mL [facility] Comment on above: REFERENCE RANGE: <5.0 NON-REACTIVE (non-immune) 5.0 TO 9.9 EQUIVOCAL >=10.0 REACTIVE (immune) Segmented neutrophils/100 WBC (Bld) 62 % 36 - 65 % [facility] Segs Absolute 6.09 [facility] T. pallidum, IgG Non-Reactive NONREACTIVE [facility] Comment on above: T. pallidum antibodies are not detected. There is no serological evidence of infection with T. pallidum (early primary syphilis cannot be excluded). Retest in 2-4 weeks if syphilis is clinically suspect. WBC (Bld) [#/Vol] 9.7 10*3/uL [facility] HIV Screenon 02-21-2022 HIV Ag/Ab Non-Reactive NONREACTIVE [facility] Comment on above: No laboratory eviden ce of HIV infection. If acute HIV infection is suspected, consider testing for HIV-1 RNA. [facility] Hepatitis C Antibodyon 02-21 Hepatitis C Ab Non-Reactive NONREACTIVE [facility] Comment on above: The hepatitis [...] recommended by ordering HCV RNA by PCR. [facility] TYPE AND SCREENon 0 02-21-2022 ABO/Rh Positive [facility] Profileon 2 Abs. Basophil 0.07 k/uL Normal 0.00-0.20 [facility] Comment on above: Performed By: #### P RENAT #### [address] [place] [address] Special Effects Technician: Diego Bashir MD [facility] [address] [place] [address] [place] [address] Special Effects Technician: Artem Jones MD Abs.Imm.Granulocyte 0.05 k/uL Normal 0.00-0.30 [facility] Comment on above: Performed By: #### P RENAT #### [address] [place] [address] Special Effects Technician: Diego Bashir MD [facility] [address] [place] [address] [place] [address] Special Effects Technician: Artem Jones MD Abs.Neutrophil (Seg) 6.09 k/uL Normal 1.50-8.10 [facility] Comment on above: Performed By: #### P RENAT #### [facility] [address] [place] [address] Special Effects Technician: Diego Bashir MD [facility] [address] [place] [address] [place] [address] Special Effects Technician: Artem Jones MD Basophils/100 WBC (Bld) 1 % Normal 0-2 [facility] Comment on above: Performed By: #### P RENAT #### [address] [address] Special Effects Technician: Diego Bashir MD [address] [place] [address] Special Effects Technician: Artem Jones MD Eosinophils (Bld) [#/Vol] 0.10 10*3/uL Normal 0.00-0.44 [facility] Comment on above: Performed By: #### P RENAT #### [address] [address] Special Effects Technician: Diego Bashir MD [address] [place] [address] Special Effects Technician: Artem Jones MD Eosinophils/100 WBC (Bld) 1 % Normal 1-4 [facility] Comment on above: Performed By: #### P RENAT #### [address] [address] Special Effects Technician: Diego Bashir MD [address] [place] [phone] Special Effects Technician: Artem Jnoes MD Erythrocyte distribution width (RBC) [Ratio] 12.7 % Normal 11.8-14.4 [facility] Comment on above: Performed By: #### P RENAT #### [address] [address] Special Effects Technician: Diego Bashir MD [address] [place] [phone] Special Effects Technician: Artem Jones MD Hematocrit (Bld) [Volume fraction] 37.3 % Normal 36.3-47.1 [facility] Comment on above: Performed By: #### P RENAT #### [address] [address] Special Effects Technician: Diego Bashir MD [facility] [address] [place] [address] Dr. [place] [phone] Special Effects Technician: Artem Jones MD Hemoglobin (Bld) [Mass/Vol] 12.2 g/dL Normal 11.9-15.1 [facility] Comment on above: Performed By: #### P RENAT #### [address] [place] [address] Special Effects Technician: Diego Bashir MD [facility] [address] [place] [address] Dr. [place] [phone] Special Effects Technician: Artem Jones MD Immature granulocytes/100 WBC (Bld) 1 % High 0 [facility] Comment on above: Performed By: #### P RENAT #### [address] [address] Special Effects Technician: Diego Bashir MD [facility] [address] [place] [address] Dr. [place] [phone] Special Effects Technician: Artem Jones MD Lymphocytes (Bld) [#/Vol] 2.73 10*3/uL Normal 1.10-3.70 [facility] Comment on above: Performed By: #### P RENAT #### [address] [address] Special Effects Technician: Diego Bashir MD [address] [place] [phone] Special Effects Technician: Artem Jones MD Lymphocytes/100 WBC (Bld) 28 % Normal 24-43 [facility] Comment on above: Performed By: #### P RENAT #### [address] [address] Special Effects Technician: Diego Bashir MD [facility] [address] [place] [address] Dr. [place] [phone] Special Effects Technician: Artem Jones MD MCH (RBC) [Entitic mass] 28.0 pg Normal 25.2-33.5 [facility] Comment on above: Performed By: #### P RENAT #### [address] [address] Special Effects Technician: Diego Bashir MD [facility] [address] [place] [address] [place] [address] Special Effects Technician: Artem Jones MD MCHC (RBC) [Mass/Vol] 32.7 g/dL Normal 28.4-34.8 [facility] Comment on above: Performed By: #### P RENAT #### [address] [address] Special Effects Technician: Diego Bashir MD [facility] [address] [place] [address] Dr. [place] [phone] Special Effects Technician: Artem Jones MD MCV (RBC) [Entitic vol] 85.7 fL Normal 82.6-102.9 [facility] Comment on above: Performed By: #### P RENAT #### [address] [address] Special Effects Technician: Diego Bashir MD [address] [place] [phone] Special Effects Technician: Artem Jones MD Monocytes (Bld) [#/Vol] 0.69 10*3/uL Normal 0.10-1.20 [facility] Comment on above: Performed By: #### P RENAT #### [address] [address] Special Effects Technician: Diego Bashir MD [address] [place] [phone] Special Effects Technician: Artem Jones MD Monocytes/100 WBC (Bld) 7 % Normal 3-12 [facility] Comment on above: Performed By: #### P RENAT #### [address] [address] Special Effects Technician: Diego Bashir MD [facility] [address] [place] [address] Dr. [place] [phone] Special Effects Technician: Artem Jones MD Neutrophil (Seg) 62 % Normal 36-65 [facility] Comment on above: Performed By: #### P RENAT #### [address] [address] Special Effects Technician: Diego Bashir MD [facility] [address] [place] [address] Dr. [place], [place] [phone] Special Effects Technician: Artem Jones MD NRBC Automated 0.0 per 100 WBC Normal 0.0 [facility] Comment on above: Performed By: #### P RENAT #### [address] [address] Special Effects Technician: Diego Bashir MD [address] [place] [phone] Special Effects Technician: Artem Jones MD Platelet mean volume (Bld) [Entitic vol] 9.3 fL Normal 8.1-13.5 [facility] Comment on above: Performed By: #### P RENAT #### [address] [address] Special Effects Technician: Diego Bashir MD [address] [place] [address] Special Effects Technician: Artem Jones MD Platelets (Bld) [#/Vol] 300 10*3/uL Normal 138-453 [facility] Comment on above: Performed By: #### P RENAT #### [address] [address] Special Effects Technician: Diego Bashir MD [facility] [address] [place] [address] Dr. [place] [phone] Special Effects Technician: Artem Jones MD RBC (Bld) [#/Vol] 4.35 10*6/uL Normal 3.95-5.11 [facility] Comment on above: Performed By: #### P RENAT #### [address] [address] Special Effects Technician: Diego Bashir MD [facility] [address] [place] [address] [place] [address] Special Effects Technician: Artem Jones MD WBC (Bld) [#/Vol] 9.7 10*3/uL Normal 3.5-11.3 [facility] Comment on above: Performed By: #### P RENAT #### [address] [address] Special Effects Technician: Diego Bashir MD [facility] [address] [place] [address] Dr. [place] [facility] Special Effects Technician: Artem Jones MD Type + Scrnon 02-21 Type + Scrn Negative Normal [facility] Comment on above: Performed By: #### P RTYS #### [facility] [address] [place] [address] [place] [address] Special Effects Technician: Artem Jones MD Toxicology Scree, Urineon Amphetamine(s),Ur Negative Normal NEG [facility] Comment on above: Performed By: #### U CGP #### [address] [address] Special Effects Technician: Diego Bashir MD Barbiturate(s),Ur Negative Normal NEG [facility] Comment on above: Performed By: #### U CGP #### [address] [address] Special Effects Technician: Diego Bashir MD Benzodiazepine(s) Negative Normal NEG [facility] Comment on above: Performed By: #### U CGP #### [address] [address] Special Effects Technician: Diego Bashir MD Buprenorphrine, Ur Negative Normal NEG [facility] Comment on above: Performed By: #### U CGP #### [address] [address] Special Effects Technician: Diego Bashir MD Cannabinoid(s),Ur Negative Normal NEG [facility] Comment on above: Performed By: #### U CGP #### [address] [address] Special Effects Technician: Diego Bashir MD Cocaine Metabolite Negative Normal [facility] Comment on above: Performed By: #### U CGP #### [address] [address] Special Effects Technician: Diego Bashir MD Methadone Negative Normal [facility] Comment on above: Performed By: #### U CGP #### [address] [address] Special Effects Technician: Diego Bashir MD Methamphetamine, Ur Negative Normal [facility] Comment on above: Performed By: #### U CGP #### [address] [address] Special Effects Technician: Diego Bashir MD Opiate(s), Ur Negative Normal NEG [facility] Comment on above: Performed By: #### U CGP #### [address] [address] Special Effects Technician: Diego Bashir MD Oxycodone, Urine Negative Normal NEG [facility] Comment on above: Performed By: #### U CGP #### [address] [address] Special Effects Technician: Diego Bashir MD Phencyclidine, Ur Negative Normal NEG [facility] Comment on above: Performed By: #### U CGP #### [address] [address] Special Effects Technician: Diego Bashir MD Propoxyphene,Urine Negative Normal NEG [facility] Comment on above: Performed By: #### U CGP #### [address] [id number] Special Effects Technician: Diego Bashir MD Tricyclic Antidepressants Negative Normal NEG [facility] Comment on above: Result Comment: Drug screen results are to be used for medical purposes only. All positive results are unconfirmed. Testing for employment or legal uses should be sent to a reference laboratory for confirmation. Performed By: #### U CGP #### [facility] [address] [place], [place] [id number] Special Effects Technician: Diego Bashir MD Urine Drug Screen, Chad coelloeon 02-21-2022 Amphetamine Screen, Ur Negative NEGATIVE [facility] Barbiturate Screen, Ur Negative NEGATIVE [facility] Benzodiazepine Screen, Urine Negative NEGATIVE [facility] Buprenorphine Urine Negative NEGATIVE [facility] Cannabinoid Scrn, Ur Negative NEGATIVE [facility] Cocaine Metabolite, Urine Negative NEGATIVE [facility] Methadone Screen, Urine Negative NEGATIVE [facility] Methamphetamine, Urine Negative NEGATIVE [facility] Opiates, Urine Negative NEGATIVE [facility] Oxycodone Screen, Ur Negative NEGATIVE [facility] Phencyclidine, Urine Negative NEGATIVE [facility] Propoxyphene, Urine Negative NEGATIVE [facility] Tricyclic Antidepressants, Urine Negative NEGATIVE [facility] Comment on above: Drug screen results are to be used for medical purposes only. All positive results are unconfirmed. Testing for employment or legal uses should be sent to a reference laboratory for confirmation. [facility] TILT TABLE TESTon 01-26-2022 TILT TABLE TEST [address] [id number] TILT TABLE TEST PATIENT NAME: FABIEN PERAZA : 2000 MED REC NO: [id number] ROOM: ACCOUNT NO: [id number] ADMIT DATE: 01/25/2022 PROVIDER: Jade Soto MD [...] up with their primary care physician and/or front end drupal developer as previously scheduled. STUDY CONCLUSIONS: Abnormal head [...] MD CHASITY/DARCY_JEMMA Doc#: Unknown CC: Nick Quiñones, LOAN SUPERVISOR-NETWORK ACCOUNT MANAGER [facility] Basic Metabolic Panelon 06-3 Anion gap [Moles/Vol] 11 mmol/L 9 - 17 mmol/L [facility] Calcium [Mass/Vol] 9.6 mg/dL 8.6 - 10.4 mg/dL [facility] Chloride [Moles/Vol] 104 mmol/L 98 - 107 mmol/L [facility] CO2 [Moles/Vol] 24 mmol/L 20 - 31 mmol/L [facility] Creatinine [Mass/Vol] 0.74 mg/dL 0.50 - 0.90 mg/dL [facility] GFR >60 >60 mL/min [facility] GFR Non- >60 >60 mL/min [facility] Glucose [Mass/Vol] 91 mg/dL 70 - 99 mg/dL [facility] Potassium [Moles/Vol] 4.0 mmol/L 3.7 - 5.3 mmol/L [facility] Sodium [Moles/Vol] 139 mmol/L 135 - 144 mmol/L [facility] Urea nitrogen (BldV) [Mass/Vol] 14 mg/dL 6 - 20 mg/dL [facility] Urea nitrogen/Creatinine (Bld) [Mass ratio] 19 [facility] Basic Metabolic Profon 01-13 (cont.) Normal [facility] Comment on above: Result Comment: Aver age GFR for 20-29 years old: 116 mL/min/1.73sq m Chronic Kidney Disease: <60 mL/min/1.73sq m Kidney failure: <15 mL/min/1.73sq m eGFR calculated using average adult body mass. Additional eGFR calculator available at: http://www.[employer]/multiple_crcl_2011.htm Performed By: #### B RIC, CBC #### [facility] [address] [place] [address] Special Effects Technician: Artme Jones MD Anion gap [Moles/Vol] 11 mmol/L Normal - [facility] Comment on above: Performed By: #### B RIC, CBC #### [facility] [address] [place] [address] Special Effects Technician: Artem Jones MD BUN/CRE Ratio 19 Normal 9-20 [facility] Comment on above: Performed By: #### B MP, CBC #### [facility] [address] [place], [place] [id number] Special Effects Technician: Artem Jones MD Calcium [Mass/Vol] 9.6 mg/dL Normal 8.6-10.4 [facility] Comment on above: Performed By: #### B MP, CBC #### [facility] [address] [place], [place] [id number] Special Effects Technician: Artem Jones MD Chloride [Moles/Vol] 104 mmol/L Normal 98-107 [facility] Comment on above: Performed By: #### B MP, CBC #### [facility] [address] [place] [address] Special Effects Technician: Artem Jones MD CO2 [Moles/Vol] 24 mmol/L Normal 20-31 [facility] Comment on above: Performed By: #### B MP, CBC #### [facility] [address] [place] [address] Special Effects Technician: Artem Jones MD Creatinine [Mass/Vol] 0.74 mg/dL Normal 0.50-0.90 [facility] Comment on above: Performed By: #### B MP, CBC #### [facility] [address] [place], [place] [id number] Special Effects Technician: Artem Jones MD GFR, Amer >60 Normal >60 [facility] Comment on above: Performed By: #### B MP, CBC #### [facility] [address] [place] [address] Special Effects Technician: Artem Jones MD GFR,non Amer >60 Normal >60 [facility] Comment on above: Performed By: #### B MP, CBC #### [facility] [address] [place] [address] Dr. [place], [place] [id number] Special Effects Technician: Artem Jones MD Glucose [Mass/Vol] 91 mg/dL Normal 70-99 [facility] Comment on above: Performed By: #### B MP, CBC #### [facility] [address] [place], [place] [id number] Special Effects Technician: Artem Jones MD Potassium [Moles/Vol] 4.0 mmol/L Normal 3.7-5.3 [facility] Comment on above: Performed By: #### B MP, CBC #### [address] [place], [place] [id number] Special Effects Technician: Artem Jones MD Sodium [Moles/Vol] 139 mmol/L Normal 135-144 [facility] Comment on above: Performed By: #### B MP, CBC #### [address] [place], [place] [id number] Special Effects Technician: Artem Jones MD Staging: Normal [facility] Comment on above: Result Comment: Stag e 1: Some kidney damage normal GFR Stage 2: Mild kidney damage GFR 60-89 Stage 3: Moderate kidney damage GFR 30-59 Stage 4: Severe kidney damage GFR 15-29 Stage 5: Severe kidney damage GFR <15 ESRD - chronic treatment by dialysis or transplant Performed By: #### B MP, CBC #### [facility] [address] [place] [address] Dr. [place], [place] [id number] Special Effects Technician: Artem Jones MD Urea nitrogen [Mass/Vol] 14 mg/dL Normal 6-20 [facility] Comment on above: Performed By: #### B MP, CBC #### [address] [place] [address] Special Effects Technician: Artem Jones MD CBCon 01-13-2022 Erythrocyte distribution width (RBC) [Ratio] 12.4 % Normal 11.8-14.4 [facility] Comment on above: Performed By: #### B MP, CBC #### [address] [place], [place] [id number] Special Effects Technician: Artem Jones MD Hematocrit (Bld) [Volume fraction] 39.7 % Normal 36.3-47.1 [facility] Comment on above: Performed By: #### B MP, CBC #### [address] [place] [address] Special Effects Technician: Artem Jones MD Hemoglobin (Bld) [Mass/Vol] 13.0 g/dL Normal 11.9-15.1 [facility] Comment on above: Performed By: #### B MP, CBC #### [address] [place], [place] [id number] Special Effects Technician: Artem Jones MD MCH (RBC) [Entitic mass] 27.7 pg Normal 25.2-33.5 [facility] Comment on above: Performed By: #### B MP, CBC #### [address] [place] [address] Special Effects Technician: Artem Jones MD MCHC (RBC) [Mass/Vol] 32.7 g/dL Normal 28.4-34.8 [facility] Comment on above: Performed By: #### B MP, CBC #### [address] [place] [address] Special Effects Technician: Artem Jones MD MCV (RBC) [Entitic vol] 84.6 fL Normal 82.6-102.9 [facility] Comment on above: Performed By: #### B MP, CBC #### [address] [place] [address] Special Effects Technician: Artem oJnes MD NRBC Automated 0.0 per 100 WBC Normal 0.0 [facility] Comment on above: Performed By: #### B MP, CBC #### [address] [place], [place] [id number] Special Effects Technician: Artem Jones MD Platelet mean volume (Bld) [Entitic vol] 9.1 fL Normal 8.1-13.5 [facility] Comment on above: Performed By: #### B MP, CBC #### [facility] [address] [place] [address] Special Effects Technician: Artem Jones MD Platelets (Bld) [#/Vol] 275 10*3/uL Normal 138-453 [facility] Comment on above: Performed By: #### B MP, CBC #### [facility] [address] [place] [address] Special Effects Technician: Artem Jones MD RBC (Bld) [#/Vol] 4.69 10*6/uL Normal 3.95-5.11 [facility] Comment on above: Performed By: #### B MP, CBC #### [facility] [address] [place] [id number] Special Effects Technician: Artem Jones MD WBC (Bld) [#/Vol] 8.2 10*3/uL Normal 3.5-11.3 [facility] Comment on above: Performed By: #### B MP, CBC #### [facility] [address] [place] [address] Special Effects Technician: Artem Jones MD Hematocrit (Bld) [Volume fraction] 39.7 % 36.3 - 47.1 % [facility] Hemoglobin (Bld) [Mass/Vol] 13.0 g/dL 11.9 - 15.1 g/dL [facility] MCH (RBC) [Entitic mass] 27.7 pg 25.2 - 33.5 pg [facility] MCHC (RBC) [Mass/Vol] 32.7 g/dL 28.4 - 34.8 g/dL [facility] MCV (RBC) [Entitic vol] 84.6 fL 82.6 - 102.9 fL [facility] NRBC Automated 0.0 0.0 per 100 WBC [facility] Platelet distribution width (Bld) [Ratio] 12.4 % 11.8 - 14.4 % [facility] Platelet mean volume (Bld) [Entitic vol] 9.1 fL 8.1 - 13.5 fL [facility] Platelets (Bld) [#/Vol] 275 10*3/uL [facility] RBC (Bld) [#/Vol] 4.69 10*6/uL 3.95 - 5.11 m/uL [facility] WBC (Bld) [#/Vol] 8.2 10*3/uL [facility] Laboratory - Chemistry and C hemistry - challengeon 01-13-2022 GFR/1.73 sq M.predicted MDRD (S/P/Bld) [Vol rate/Area] [facility] Comment on above: Average GFR for 20-2 9 years old: 116 mL/min/1.73sq m Chronic Kidney Disease: <60 mL/min/1.73sq m Kidney failure: <15 mL/min/1.73sq m eGFR calculated using average adult body mass. Additional eGFR calculator available at: http://www.Gradematic.com/multiple_crcl_2012.htm Stage 1: Some kidney damage normal GFR Stage 2: Mild kidney damage GFR 60-89 Stage 3: Moderate kidney damage GFR 30-59 Stage 4: Severe kidney damage GFR 15-29 Stage 5: Severe kidney damage GFR <15 ESRD - chronic treatment by dialysis or transplant PROGRESSon 10-12-2017 [facility] NOTES Normal [facility] PROGRESSon 09-21-2017 [facility] NOTES Normal [facility] Vital Signs Date Time Vital Sign Value Performing Clinician Faci lity 09-26-2022 08:16-0400 Body temperature 98.1 [degF] Zak Bejarano MD Work Phone: [facility] 09-26-2022 08:16-0400 Diastolic blood pressure 80 mm[Hg] Zak Bejarano MD Work Phone: [facility] 09-26-2022 08:16-0400 Heart rate 81 /min Zak Bejarano MD Work Phone: [employer] 09-26-2022 08:16-0400 Respiratory rate 16 /min Zak Bejarano MD Work Phone: [facility] [employer] 09-26-2022 08:16-0400 Systolic blood pressure 130 mm[Hg] Zak Bejarano MD Work Phone: [facility] [employer] 09-25-2022 08:04-0400 SaO2% (BldA) [Mass fraction] 99 % Zak Bejarano MD Work Phone: [facility] [employer] 08-02-2022 18:01-0500 Body height 157.5 cm Pete Holt CNM Work Phone: [facility] [employer] 08-02-2022 18:01-0500 Body mass index (BMI) [Ratio] 35.85 kg/m2 Pete Holt CNM Work Phone: [employer] 08-02-2022 18:01-0500 Body weight 88.91 kg Pete Holt CNM Work Phone: [employer] 08-02-2022 17:37-0500 Diastolic blood pressure 70 mm[Hg] Pete Holt CNM Work Phone: [employer] 08-02-2022 17:37-0500 Heart rate 93 /min Pete Holt CNM Work Phone: [employer] 08-02-2022 17:37-0500 Respiratory rate 18 /min Pete Holt CNM Work Phone: [employer] 08-02-2022 17:37-0500 Systolic blood pressure 118 mm[Hg] Pete Holt CNM Work Phone: [employer] 08-02-2022 17:17-0500 Body temperature 97.9 [degF] Pete Holt CNM Work Phone: [facility] 01-14-2020 10:40-0400 BMI (Body Mass Index) 30.2 kg/m2 [facility] Work Phone: 01-14-2020 10:40-0400 Body weight 74.84 kg [facility] Work Phone: 01-14-2020 10:40-0400 BSA (Body Surface Area) 1.76 m2 [facility] Work Phone: 01-14-2020 10:40-0400 Height 157.48 cm [facility] Work Phone: Encounters Encounter Date Encounter Type Care Provider Facility Start: 01-17-2024 End: 01-17-2024 ambulatory MELO CAROLE Not Available Start: 01-11-2024 End: 01-11-2024 ambulatory MELO CAROLE Not Available Start: 01-04-2024 End: 01-04-2024 ambulatory MELO CAROLE [...] of inpatient Zak Bejarano MD Work Phone: [facility] Labor and Delivery Start: 09-14-2022 End: 09-15-2022 ambulatory [facility] Start: 09-14-2022 End: 09-14-2022 Subsequent hospital visit by physician Nick Quiñones APRN - NETWORK ACCOUNT MANAGER Work Phone: [facility] Comment on above: 36 weeks gestation o f Start: 09-14-2022 End: 09-14-2022 [facility]ulatory [facility] [place] [facility] Start: 09-14-2022 End: 09-14-2022 Subsequent hospital visit by physician Nick Quiñones APRN - NETWORK ACCOUNT MANAGER Work Phone: [facility] Laboratory Comment on above: Elevated blood press ure affecting , antepartum Start: 09-08-2022 End: 09-08-2022 [facility]ulatory [facility] Start: 08-25-2022 End: 08-26-2022 ambulatory [facility] Start: 08-25-2022 End: 08-25-2022 Subsequent hospital visit by physician Nick Quiñones APRN - NETWORK ACCOUNT MANAGER Work Phone: [facility] [employer] Comment on above: Encounter for superv ision of normal first in second trimester Start: 08-16-2022 End: 08-17-2022 ambulatory [facility] [place] [facility] Start: 08-16-2022 End: 08-16-2022 Subsequent hospital visit by physician [facility] Echo Room [facility] Echocardiography Comment on above: Light headedness; POTS (postural orthostatic tachycardia syndrome); Abnormal tilt table test Light headedness; POTS (postural orthostatic tachycardia syndrome); Abnormal tilt table test; 29 weeks gestation of ; Chest pain, unspecified type Start: 08-02-2022 End: 08-02-2022 ambulatory [facility] [place] [facility] Start: 08-02-2022 End: 08-02-2022 Subsequent hospital visit by physician Pete Sol APRN - AYANNAM Work Phone: [facility] Labor and Delivery Start: 02-21-2022 End: 02-22-2022 ambulatory NICK [place] [facility] Start: 02-21-2022 End: 02-21-2022 Subsequent hospital visit by physician Nick Quiñones APRN - NETWORK ACCOUNT MANAGER Work Phone: [facility] Laboratory Comment on above: Encounter for superv ision of normal , antepartum, unspecified ; Positive urine test Start: 01-25-2022 End: 01-26-2022 ambulatory NICK [place] [facility] Start: 01-25-2022 End: 01-25-2022 Subsequent hospital visit by physician [facility] Rib Chopper [facility] EKG Comment on above: Heart palpitations Start: 01-13-2022 End: 01-14-2022 ambulatory NICK [place] [facility] Start: 01-13-2022 End: 01-13-2022 Subsequent hospital visit by physician Nick Quiñones APRN - NETWORK ACCOUNT MANAGER Work Phone: [facility] Laboratory Comment on above: Heart palpitations Start: 03-15-2021 End: 03-15-2021 Patient encounter procedure Cari Troibio MD [facility] Laboratory Start: 03-15-2021 End: 03-15-2021 Subsequent hospital visit by physician Cari Toribio MD [facility] Laboratory Comment on above: Women's annual routi ne gynecological examination Start: 01-14-2020 End: 01-14-2020 Patient encounter procedure Meri Silva Work Phone: [facility] Work Phone: Start: 01-14-2020 End: 01-14-2020 Telemedicine consultation with patient Radha Cuevas Work Phone: [facility] Work Phone: Start: 10-12-2017 Ambulatory [facility] Start: 09-21-2017 Ambulatory [facility] Procedures Date Procedure Procedure Detail Performing [...] End: 09-14-2022 Comprehensive metabolic panel Elizabeth Galvez LOAN SUPERVISOR - CN Work Phone: Start: 08-25-[address] gtt 3 specimens Jacqui Russell LOAN SUPERVISOR - CN Work Phone: Start: 08-16-2022 Echo tthrc r-t 2d w/wom-mode compl spec&colr d Jade Soto MD Work Phone: Start: 08-02-2022 Urnls dip stick/tabl et rgnt auto w/o microscopy Pete Sol LOAN SUPERVISOR - [facility] Work Phone: Start: 02-21-2022 Antibody screen Nick Stephanie LOAN SUPERVISOR - NETWORK ACCOUNT MANAGER Work Phone: Start: 02-21-2022 End: 02-21-2022 Antibody hiv-1&hiv-2 single result Pete Nidia Sol LOAN SUPERVISOR - CN Work Phone: Start: 02-21-2022 Drug screen, qualitate/multi Pete Jacob Ebenezer LOAN SUPERVISOR - CN Work Phone: Start: 01-13-2022 Basic metabolic pane l calcium total Nick Quiñones LOAN SUPERVISOR - NETWORK ACCOUNT MANAGER Work Phone: Start: 03-15-2021 Microscopic observat ion [Identifier] in Cervix by Cyto stain Nick Quiñones LOAN SUPERVISOR - NETWORK ACCOUNT MANAGER Work Phone: Start: 01-14-2020 MIGRAINE HEADACHE Gertrude e Faith NEGATED: Highlighted row has not occurred!Start: 01-14-2020 reported prior surgical / procedural history Radha Cuevas Plan of Treatment Date Care Activity Detail Author Start: 03-15-2024 Screening for malignant neoplasm of cervix Pap smear [facility] [employer] [facility] Start: 05-09-2023 Depression Screen Depression Screen [facility] Start: 05-09-2023 Influenza vaccination Flu vaccine (#1) [facility] [employer] [facility] Comment on above: Postponed from 02/14/2022 (Patient Refus ed) Start: 02-21-2023 Screening for Chlamydia trachomatis Chlamydia/GC screen [facility] [employer] [facility] Start: 02-03-2023 Depression Screen Depression Screen [facility] Start: 01-13-2023 COVID-19 Vaccine (#1) COVID-19 Vaccine (#1) [employer] [facility] Comment on above: Postponed from 05/17/2000 (Patient Refus ed) Start: 01-13-2023 COVID-19 Vaccine (1) COVID-19 Vaccine (1) [employer] Comment on above: Postponed from 11/14/2004 (Patient Refus ed) Start: 01-13-2023 Depression Screen Depression Screen [facility] Start: 01-13-2023 DTaP/Tdap/Td vaccine (1 - Tdap) DTaP/Tdap/Td vaccine (1 - Tdap) [facility] [employer] [facility] Comment on above: Postponed from 11/14/2018 (Patient Refus ed) Start: 01-13-2023 Hepatitis C screening Hepatitis C screen [employer] Comment on above: Postponed from 11/14/2017 (Patient Refus ed) Start: 01-13-2023 HIV screening HIV screen [facility] [employer] [facility] Comment on above: Postponed from 11/14/2014 (Patient Refus ed) Start: 01-13-2023 HPV vaccine (1 - 2-dose series) HPV vaccine (1 - 2-dose series) [employer] Comment on above: Postponed from 11/14/2010 (Patient Refus ed) Start: 11-30-2022 End: 11-30-2022 Patient encounter procedure 11/30/2022 Office Visit Cardiology Samantha Mora PA-C [address] [place] [id number] [facility] Start: 10-31-2022 End: 10-31-2022 ambulatory 10/31/2022 Visit Obstetrics and Gynecology Jacqui Russell, LOAN SUPERVISOR - CNM [address] [facility] [place] [address] [facility] Start: 09-21-2022 End: 09-21-2022 Patient encounter procedure 09/21/2022 Office Visit Cardiology Samantha Mora PA-C [address] [place] [address] [facility] Start: 09-20-2022 End: 09-20-2022 Patient encounter procedure 09/20/2022 Routine Obstetrics and Gynecology Jacqui Russell, LOAN SUPERVISOR - CNM [address] [place] [address] [facility] Start: 09-14-2022 End: 09-14-2022 Patient encounter procedure 09/14/2022 Routine Obstetrics and Gynecology Elizabeth Galvez, LOAN SUPERVISOR - CNM [address] [address] [facility] Start: 09-08-2022 End: 09-08-2022 Patient encounter procedure 09/08/2022 Routine Obstetrics and Gynecology Aditya Galvan, LOAN SUPERVISOR - ROUTING EQUIPMENT TENDER [address] [place] [address] [facility] Start: 09-08-2022 End: 09-08-2022 Professional / ancillary services management 09/08/2022 Ancillary Procedure Obstetrics and Gynecology [facility] Start: 08-25-2022 End: 08-25-2022 Patient encounter procedure 08/25/2022 Routine Obstetrics and Gynecology Jacqui Russell, LOAN SUPERVISOR - CNM [address] [place] [address] [facility] Start: 08-16-2022 End: 08-16-2022 Patient encounter procedure [facility] Start: 08-10-2022 End: 08-10-2022 Patient encounter procedure 08/10/2022 Routine Obstetrics and Gynecology Arin Sykes, DO [address] [place] [address] [facility] Start: 08-10-2022 End: 08-10-2022 Professional / ancillary services management 08/10/2022 Ancillary Procedure Obstetrics and Gynecology [facility] Start: 08-09-2022 End: 08-09-2022 Patient encounter procedure 08/09/2022 Office Visit Primary Care Nick Quiñones, LOAN SUPERVISOR - NETWORK ACCOUNT MANAGER [address] [place] [address] [facility] Start: 08-03-2022 End: 08-03-2022 Patient encounter procedure 08/03/2022 Routine Obstetrics and Gynecology Elizbaeth Galvez, LOAN SUPERVISOR - CNM [address] [address] [facility] Start: 05-09-2022 End: 05-09-2022 Patient encounter procedure 05/09/2022 Office Visit Primary Care Nick Quiñones LOAN SUPERVISOR - NETWORK ACCOUNT MANAGER [address] [place] [address] [facility] Start: 04-04-2022 End: 04-04-2022 Patient encounter procedure 04/04/2022 Routine Obstetrics and Gynecology Pete Sol, LOAN SUPERVISOR - CNM [address] [facility] [address] [place] [address] [facility] Start: 03-17-2022 Influenza vaccination [facility] Start: 02-03-2022 End: 02-03-2022 Patient encounter procedure 02/03/2022 Office Visit Primary Care Nick Quiñones, LOAN SUPERVISOR - NETWORK ACCOUNT MANAGER [address] [place] [address] [facility] [place] Start: 03-17-2021 Influenza vaccination Flu vaccine (#1) [employer] Phone: Start: 11-14-2020 Screening for malignant neoplasm of cervix Cervical cancer screen [employer] Phone: Start: 02-13-2020 _SARS-CoV-2 COVID19 test Health [facility] Work Phone: Start: 01-14-[address] up Testing [facility] Work Phone: Start: 11-14-2018 DTaP/Tdap/Td vaccine (1 - Tdap) DTaP/Tdap/Td vaccine (1 - Tdap) [employer] Phone: Start: 2015 Screening for Chlamydia trachomatis Chlamydia screen [facility] Start: 11-14-2014 HIV screening [facility] Phone: Start: 2011 COVID-19 Vaccine (1) COVID-19 Vaccine (1) [employer] Phone: Start: 11-14-2010 HPV vaccine (1 - 2-dose series) HPV vaccine (1 - 2-dose series) [employer] Phone: Start: 11-14-2000 Varicella vaccine (1 of 2 - 2-dose childhood series) Varicella vaccine (1 of 2 - 2-dose childhood series) [employer] Phone: Start: 1999 Hepatitis C screening Hepatitis C screen [employer] Phone: End: 08-02-2022 Bacteria identified in Urine by Culture Urine culture Microbiology Routine One Time for 1 Occurrences starting 08/02/2022 until 08/02/2022 [employer] Phone: Comment on above: One Time for 1 Occurrences starting 07/17 until 08/02/2022 End: 09-24-2022 Bacteria identified in Urine by Culture Urine culture Microbiology Routine One Time for 1 Occurrences starting 09/24/2022 until 09/24/2022 [employer] Phone: Comment on above: One Time for 1 Occurrences starting 09/14 until 09/24/2022 End: 02-21-2022 C.trachomatis N.gonorrhoeae DNA, Urine [employer] Phone: Comment on above: 1 Occurrences starting 02/21/2022 until 02/21/2022 End: 08-16-2022 Continuous cardiac monitoring, >2 up to 14 days Continuous cardiac monitoring, >2 up to 14 days Cardiac Services Routine Light headedness POTS (postural orthostatic tachycardia syndrome) Abnormal tilt table test 29 weeks gestation of Chest pain, unspecified type 1 Occurrences starting 08/16/2022 until 08/16/2022 [employer] Phone: Comment on above: 1 Occurrences starting 08/16/2022 until 08/16/2022 Continuous pulse oximetry Pulse oximetry, continuous while on epidural Respiratory Care Routine Every 4hr until discontinued starting 09/25/2022 [employer] Phone: Comment on above: Every 4hr until discontinued starting End: 09-14-2022 Culture, Strep B Screen, Vaginal/Rectal [employer] Phone: Comment on above: 1 Occurrences starting 09/14/2022 until 09/14/2022 End: 02-21-2022 Culture, Urine [employer] [facility] Phone: Comment on above: 1 Occurrences starting 02/21/2022 until 02/21/2022 End: 03-15-2021 Cytopathology procedure, preparation of smear, genital source PAP SMEAR Lab Routine Women's annual routine gynecological examination 1 Occurrences starting 03/15/2021 until 03/15/2021 [employer] Phone: Comment on above: 1 Occurrences starting 03/15/2021 until 03/15/2021 nonstress test nonst ress test OB Routine Daily until discontinued starting 08/03/2022 [employer] Phone: Comment on above: Daily until discontinued starting 2022 nonstress test nonst ress test OB Routine Daily until discontinued starting 09/25/2022 [employer] Phone: Comment on above: Daily until discontinued starting 2022 Nonrebreather mask oxygen Nonrebreather mask oxygen Respiratory Care Routine As directed - RT (PRN) until discontinued starting 08/02/2022 [employer] Phone: Comment on above: As directed - RT (PRN) until discontinue d starting 08/02/2022 Nonrebreather mask oxygen Nonrebreather mask oxygen Respiratory Care Routine As directed - RT (PRN) until discontinued starting 09/24/2022 [employer] Phone: Comment on above: As directed - RT (PRN) until discontinue d starting 09/24/2022 Nonrebreather mask oxygen Nonrebreather mask oxygen Respiratory Care Routine As directed - RT (PRN) until discontinued starting 09/24/2022 [employer] Phone: Comment on above: As directed - RT (PRN) until discontinue d starting 09/24/2022 Oxygen therapy [Minimum Data Set] Initiate Oxygen Therapy Protocol while on epidural Respiratory Care Routine Daily until discontinued starting 09/24/2022 [employer] Phone: Comment on above: Daily until discontinued starting 2022 End: 09-25-2022 SURGICAL PATHOLOGY REPORT SURGICAL PATHOLOGY REPORT Lab Routine Once for 1 Occurrences starting 09/25/2022 until 09/25/2022 [employer] Phone: Comment on above: Once for 1 Occurrences starting 09/26/19 until 09/25/2022 End: 08-02-2022 SVE SVE Point of Care Testing Routine One Time for 1 Occurrences starting 08/02/2022 until 08/02/2022 [employer] Phone: Comment on above: One Time for 1 Occurrences starting 07/17 until 08/02/2022 End: 09-24-2022 SVE SVE Point of Care Testing Routine One Time for 1 Occurrences starting 09/24/2022 until 09/24/2022 [employer] Phone: Comment on above: One Time for 1 Occurrences starting 09/14 until 09/24/2022 Immunizations Immunization Date Immunization Notes Care Provider Fa cili 09-25-2022 diphtheria, tetanus toxoids and acellular pertussis vaccine, unspecified formulation Zak Bejarano MD Work Phone: [employer] Phone: Payers Date Payer Category Payer Unknown [id number] 1.2.84 [id number] 2014 Unknown [id number] 1. [id number] 1999 Unknown [id number] 2.16.8 40.1.042545.3.579.2.173 1999 Unknown [id number] 2.16.8 40.1.385531.3.579.2.173 1999 Unknown [id number] 2.16.8 40.1.900636.3.579.2.173 1999 Unknown [id number] 2.16.8 40.1.378569.3.579.2.173 1999 Unknown [id number] 2.16.8 40.1.318911.3.579.2.173 1999 Unknown [id number] 2.16.8 40.1.933003.3.579.2.173 1999 Unknown [id number] 2.16.8 40.1.798261.3.579.2.173 1999 Unknown [id number] 2.16.8 40.1.050079.3.579.2.173 1999 Unknown [id number] 2.16.8 40.1.371498.3.579.2.173 1999 Unknown [id number] 2.16.8 40.1.057612.3.579.2.173 1999 Unknown [id number] 2.16. 840.1.685264.3.579.2.175 1999 Unknown [id number] 2.16. 840.1.389988.3.579.2.175 1999 Unknown [id number] 2.16. 840.1.369796.3.579.2.175 1999 Unknown [id number] 2.16. 840.1.144970.3.579.2.175 1999 Unknown [id number] 2.16.84 0.1.774089.3.579.2.9 1999 Unknown [id number] 2.16.84 0.1.717505.3.579.2.1258 1999 Unknown [id number] 2.16.84 0.1.268883.3.579.2.9 1999 Unknown [id number] 2.16.84 0.1.978180.3.579.2.9 1999 Unknown [id number] 2.16.84 0.1.312179.3.579.2.1258 1999 Unknown [id number] 2.16.84 0.1.156243.3.579.2.9 1999 Unknown [id number] 2.16.84 0.1.123663.3.579.2.9 1999 Unknown [id number] 2.16.84 0.1.629333.3.579.2.9 1999 Unknown [id number] 2.16.84 0.1.390042.3.579.2.9 1999 Unknown [id number] 2.16.84 0.1.788336.3.579.2.9 1999 Unknown [id number] 2.16.840 .1.411296.3.579.2.9 1999 Unknown [id number] 2.16.840 .1.271801.3.579.2.1258 Self-pay [id number] 2.16.840 .1.191620.3.140.1.40481.5.4 Social History Date Type Detail Facility Assertion Gender identity finding (finding) [facility] Work Phone: Assertion Finding of sexua l orientation (finding) [facility] Work Phone: Tobacco smoking status Unknown if ever smoked [facility] Work Phone: Start: 05-18-2012 End: 03-15-2021 Tobacco smoking status NEIS Never smoker [employer] Phone: Start: 05-18-2012 End: 03-15-2021 Tobacco use and exposure Never used [employer] Start: 03-15-2021 End: 09-25-2022 Alcohol intake Current non-drinker of alcohol (finding) [employer] Phone: Start: 2000 Sex Assigned At Not on file M [employer] Phone: Start: 01-13-2022 History SDOH Financial 5 [employer] Phone: Start: 01-13-2022 History SDOH Food Worry 1 [employer] Phone: Start: 01-19-2022 [facility] [employer] Work Phone: Start: 07-23-2022 End: 09-24-2022 Exposure to SARS-CoV-2 (event) Not sure JUAN LALA [facility] Work Phone: NEGATED: Highlighted row Assertion Current drinker of alcohol (finding) [facility] Work Phone: NEGATED: Highlighted row Assertion Finding relating to drug misuse behavior (finding) [facility] Work Phone: NEGATED: Highlighted row Assertion Exposure to pollution (event) [facility] Work Phone: NEGATED: Highlighted row Assertion Tobacco user (finding) [facility] Work Phone: Clinical Notes 01-25-2022 to 09-26-2022 Discharge InstructionsZenaida Grant APRN - AYANNA - 09/26/2022 9:02 AM EDIAN Russo - 09/26/2022 8:56 AM Javier Bejarano MD - 09/24/2022 10:40 PM ESTAshley Work - 08/16/2022 10:00 AM EST Note Date & Type Note Facility 09-26-2022 Hospital Discharg e instructions Kiran Gamino RN - 09/26/2022 9:55 AM EDT Follow-up with your OB doctor as specified. [facility] OB Department phone: Dr. Asya Gruber CNM Dr. Skye Sol CN [address] [facility] [address] [place] [address] Skye Russell CN [address] [facility] [id number] [phone] Kenya Tinajero, MSN, LOAN SUPERVISOR, CNM [facility] [address] [facility] [address] [address] [facility] [address] [facility] [address] Pete Recio CN [address] [place] [place] [place] [address] Zenaida Grant [facility] [address] [place] [address] [place] [address] [phone] DIET Eat a well balanced diet focusing on foods high in fiber and protein. Drink plenty of fluids especially water. To avoid constipation you may take a mild stool softener as recommended by your doctor or spring floor service worker. ACTIVITY Gradually increase your activity. Resume exercise regimen only after advice by your doctor or spring floor service worker. Avoid lifting anything heavier than a gallon of milk for SIX weeks. Avoid driving until your doctor or spring floor service worker has given their approval. Rise slowly from [...] medications as recommended by your doctor or spring floor service worker for pain If you develop a warm, [...] vitamins as directed by your doctor or spring floor service worker. Refer to the booklet in the folder/binder for more information. If you feel you need more assistance or have questions, please call Stacey ADAM, technical consultant, at or the OB department to [...] your calf. documented in this encounter [facility] Phone: 09-26-2022 Hospital course Narrative Obstetrical Discharge [...] NONREACTIVE Final HIV: No results found for: [id number] Results for orders placed or performed during the hospital encounter of 09/24/22 Urinalysis Result Value Ref Range Color, UA Yellow Yellow Turbidity UA Clear Clear Glucose, Ur NEGATIVE NEGATIVE Bilirubin Urine NEGATIVE NEGATIVE Ketones, Urine TRACE (A) NEGATIVE Specific [place], UA 1.010 1.010 - 1.020 Urine Hgb [...] # 2.52 1.10 - 3.70 k/uL Absolute [place] # 0.80 0.10 - 1.20 k/uL Absolute [...] Range Expiration Date 09/27/2022,2359 Arm Band Number [id number] ABO/Rh A POSITIVE Antibody Screen NEGATIVE complications: [...] Your Medications These medications were sent to [facility] [address] [place] [address] 18 - P [phone] F [phone] [place] [address] docusate 100 MG Caps ibuprofen 800 MG tablet Admit date: 09/24/2022 3:00 PM Discharge Date: 09/26/2022 Discharged to: Home in stable condition Plan: Follow up in 6 week(s) for post visit, blood pressure check, breast feeding check, and post depression check documented in this encounter [facility] Phone: 09-26-2022 History of Presen t illness [...] rate: Baseline Heart Rate: 125 Accelerations: present Electron Beam Operator Variability: moderate Decelerations: absent Contraction frequency: 2 minutes Position: Cephalic Membranes: ROM clear fluid Cervix: Dilation: 6-7 cm Effacement: 80 Station: -1 Consistency: soft Position: mid ASSESSMENT & PLAN: Active labor. S/P AROM. Patient progressing continue current management Provider at bedside. Admission orders received from Dr Bejarano. Amnioswab negative. documented in this encounter [facility] Phone: 01-31-2023 History of Presen t illness Narrative Explained policies and procedure of an echocardiogram/Doppler study. Patient instructed on extended director of cardiac rehabilitation indications and use. Diary sent with patient. 5-7 days documented in this encounter [employer] Phone: 08-02-2022 History of Presen t illness [...] provide urine sample. documented in this encounter [employer] Phone: 08-02-2022 Hospital Discharg e instructions Wendy Choudhary RN - 08/02/2022 6:20 PM EST OUTPATIENT DISCHARGE Dr Skye Russell [facility] [address] [facility] [address] [phone] ACTIVITY LIMITATIONS: ( X )Up and about [...] AND DELIVERY . documented in this encounter [employer] Phone: 01-25-2022 History of Presen t illness Narrative Explained Holter monitor and diary. documented in this encounter [employer] Phone: Evaluation note Diagnosis Women's annual routine gynecological examination documented in this encounter [facility] Phone: evaluation note* Diagnosis Heart palpitations Palpitations documented in this encounter [employer] Phone: evaluation note* Diagnosis Heart palpitations Palpitations documented in this encounter [employer] Phone: evaluation note* Diagnosis Encounter for supervision of normal , antepartum, unspecified Positive urine test documented in this encounter [employer] Phone: evaluation note* Diagnosis contractions- Primary Unspecified abnormality of labor, antepartum documented in this encounter [employer] Phone: evaluation note* Diagnosis Light headedness Dizziness and giddiness POTS (postural orthostatic tachycardia syndrome) Tachycardia, unspecified Abnormal tilt table test Other nonspecific abnormal result of function study of brain and central nervous system documented in this encounter [employer] Phone: evaluation note* Diagnosis Light headedness Dizziness and giddiness POTS (postural orthostatic tachycardia syndrome) Tachycardia, unspecified Abnormal tilt table test Other nonspecific abnormal result of function study of brain and central nervous system 29 weeks gestation of state, incidental Chest pain, unspecified type documented in this encounter [employer] Phone: evaluation note* Diagnosis Encounter for supervision of normal first in second trimester Supervision of normal first documented in this encounter [employer] Phone: evaluation note* Diagnosis 36 weeks gestation of state, incidental documented in this encounter [employer] Phone: evaluation note* Diagnosis Elevated blood pressure affecting , antepartum documented in this encounter [employer] Phone: evaluation note* Diagnosis Elevated blood pressure affecting , antepartum documented in this encounter [employer] Phone: evaluation note* Diagnosis (spontaneous vaginal delivery)- Primary Normal delivery Rupture of membranes with delay of delivery Term documented in this encounter [employer] Phone: Summary Purpose Family History No Family History Records Found Description Last Updated Maternal history of family history of is chemic heart disease 01/14/2020 Paternal history of family history of is chemic heart disease 01/14/2020 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s No Advanced Directives Records FoundDocuments on File Type Date Recorded Patient Heating Element Repairer Expl anation ACP-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 ACP-Power of Grain Inspector Documents on File Type Date Recorded Patient Heating Element Repairer Expl anation ACP-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 ACP-Power of Grain Inspector Latest Code Status on File Code Status [...] Monitor 48 Hour Nick Quiñones APRN - NETWORK ACCOUNT MANAGER [address] [place] [address] Referral ID Status Reason Start Date Expiration Date Visits Re quested Visits Authorized [id number] Closed 01/13/2022 01/13/2023 1 1 Specialty Diagnoses / Procedures Referred By Contac t Referred To Contact Cardiology Diagnoses Light headedness POTS (postural orthostatic tachycardia syndrome) Abnormal tilt table test Procedures Echo 2D w doppler w color complete Jade Soto MD [address] [place] [id number] Referral ID Status Reason Start Date Expiration Date Visits Re quested Visits Authorized [id number] Closed 08/04/2022 08/10/2023 1 1 Specialty Diagnoses / Procedures Referred By Contac t Referred To Contact Diagnoses Light headedness POTS (postural orthostatic tachycardia syndrome) Abnormal tilt table test 29 weeks gestation of Chest pain, unspecified type Procedures Continuous cardiac monitoring, >2 up to 14 days Jade Soto MD [address] [place] [id number] Referral ID Status Reason Start Date Expiration Date Visits Re quested Visits Authorized [id number] Closed 07/27/2022 07/27/2023 1 1 Assessments Findings Encounter Date Body mass index Telemedicine with Radha Saleem ROUTING EQUIPMENT TENDER 01/14/2020 Exposure to a viral disease Telemedicine with Rachel velascomary Faith FLOWERS 01/14/2020 Instructions Instructions not supported [...] DATE CREATED AUTHOR AUTHOR'S ORGANIZ ATION 09/28/2022 [facility] DATE CREATED AUTHOR AUTHOR'S ORGANIZ ATION 07/08/2023 [facility] DATE CREATED AUTHOR AUTHOR'S ORGANIZ ATION 01/19/2024 [facility] EPIC Evaluations & Outcomes (unre cognized section and content) Includes: Evaluations & Outcomes for active GoalsNo Outcomes Recorded Includes: Evaluations & Outcomes for active GoalsNo Outcomes Recorded Care Teams (unrecognized sec tion and content) Padded Box Sewer Relationship Specialty Start Date End Date Nick Quiñones APRN - CNP [address] [place] [address] PCP - General Certified Nurse 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 01/13/22 Padded Box Sewer Relationship Specialty Start Date End Date Nick Quiñones APRN - CNP [address] [place] [address] PCP - General Certified Nurse 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 01/13/22 Padded Box Sewer Relationship Specialty Start Date End Date Nick Quiñones APRN - CNP [address] [place] [address] PCP - General Certified Nurse 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 01/13/22 Padded Box Sewer Relationship Specialty Start Date End Date Nick Quiñones APRN - NETWORK ACCOUNT MANAGER [address] [place] [address] PCP - General Certified Nurse 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 01/13/22 Padded Box Sewer Relationship Specialty Start Date End Date Nick Quiñones APRN - NETWORK ACCOUNT MANAGER [address] [place] [address] PCP - General Certified Nurse 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 01/13/22 Padded Box Sewer Relationship Specialty Start Date End Date Nick Quiñones APRN - NETWORK ACCOUNT MANAGER [address] [place] [address] PCP - General Certified Nurse 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 01/13/22 Padded Box Sewer Relationship Specialty Start Date End Date Nick Quiñones APRN - NETWORK ACCOUNT MANAGER [address] [place] [id number] PCP - General Certified Nurse 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 01/13/22 Padded Box Sewer Relationship Specialty Start Date End Date Nick Quiñones APRN - NETWORK ACCOUNT MANAGER [address] [place] [address] PCP - General Certified Nurse 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 01/13/22 Padded Box Sewer Relationship Specialty Start Date End Date Nick Quiñones APRN - NETWORK ACCOUNT MANAGER [address] [place] [address] PCP - General Certified Nurse 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 01/13/22 Padded Box Sewer Relationship Specialty Start Date End Date Nick Quiñones APRN - NETWORK ACCOUNT MANAGER [address] [place] [address] PCP - General Certified Nurse 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 01/13/22 Reason for Visit (unrecogniz ed section and content) Specialty Diagnoses / Procedures Referred By Nii garrido Referred To Contact Diagnoses Heart palpitations Procedures Holter Monitor 48 Hour Nick Quiñones APRN - NETWORK ACCOUNT MANAGER [address] [place] [address] Referral ID Status Reason Start Date Expiration Date Visits Re quested Visits Authorized [id number] Closed 01/13/2022 01/13/2023 1 1 Reason Comments Contractions Specialty Diagnoses / Procedures Referred By Nii garrido Referred To Contact Cardiology Diagnoses Light headedness POTS (postural orthostatic tachycardia syndrome) Abnormal tilt table test Procedures Echo 2D w doppler w color complete Jade Soto MD [address] [place] [address] Referral ID Status Reason Start Date Expiration Date Visits Re quested Visits Authorized [id number] Closed 08/04/2022 08/10/2023 1 1 Specialty Diagnoses / Procedures Referred By Nii t Referred To Contact Diagnoses Light headedness POTS (postural orthostatic tachycardia syndrome) Abnormal tilt table test 29 weeks gestation of Chest pain, unspecified type Procedures Continuous cardiac monitoring, >2 up to 14 days Jade Soto MD [address] [place] [address] Referral ID Status Reason Start Date Expiration Date Visits Re quested Visits Authorized [id number] Closed 07/27/2022 07/27/2023 1 1 Reason Comments Rupture of Membranes Patient states she believes her water broke at home approximately an hour ago. Ordered Prescriptions (unrec ognized section and content) Prescription Sig Dispensed Refills Start Date End Da docusate sodium (COLACE, DULCOLAX) 100 MG CAPS [...] mL/lumen, 1045 (Due)2100 (Due) 0900 (Due)2100 (Due) blugrxt-cwbjlo-uracq pertussis (BOOSTRIX) injection 0.5 mL 0.5 mL, IntraMUSCular, PRIOR TO DISCHARGE, 1 dose, Starting on 09/25/22 at 1023, Until Discontinued, If not previously administered during at 27-36 weeks as recommended by CDC., Continuous Medication Order 09/24/2022 09/25/2022 09/26/2022 lactated ringers IV soln infusion (CANCELED) IntraVENous, at 125 mL/hr, CONTINUOUS, Starting on 09/24/22 at 1830, Labor and Delivery 183 (New Bag - Provider: Tammie Lane RN)183 [...] RN)2243 (Rate/Dose Verify - Provider: Toya David RN)2331 [...] every 2-3 minutes with cervical changes or [place] units (MVU) greater than 200 in a 10-minute window. Maximum infusion rate: 20 nyeda-unit/min. Contact provider if maximum rate does not [...] 2 HOURS PRN, Starting on 09/24/22 at 181, Until Discontinued, Pain Moderate (4-6), Pain Severe [...] 1811, Until Discontinued, Nausea, Labor and Delivery 215 (Given - Provider: Yarelis Rosario RN) ondansetron [...] 0921 (New Bag - Provider: Marycruz Lloyd, ARMANI)0931 (Due: Stopped - Provider: Marycruz Lloyd, ARMANI) [...] needed, nurse may repeat bolus., Starting on 3/11/23 at 1811, Labor and Delivery Or lactated [...] BE BASED ON THE PRIMARY CLINICAL RECORDS. [employer] provides no warranty or guarantee of the accuracy or completeness of information in this document.
[2024-01-22] MEDS: 0.9 % SODIUM CHLORIDE 1,000 ML 125 ML IV ×2 (06:00→13:43)
[2024-01-22 06:06] LABS: Hematocrit 29.5 % (36.0-48.0); Hemoglobin 9.3 g/dL (12.0-16.0); Mean Corpuscular HGB Conc 31.5 g/dL (29.9-35.2); Mean Corpuscular Hemoglobin 23.7 pg (26.7-34.0); Mean Corpuscular Volume 75.3 fL (81.0-99.0); Mean Platelet Volume 8.7 fL (9.5-13.5); Platelet Count 247 10^3/uL (150-450); Red Blood Count 3.92 10^6/uL (4.20-5.40); Red Cell Distribution Width 15.6 % (11.0-15.0); White Blood Count 10.5 10^3/uL (4.0-11.0)
[2024-01-22] MEDS: OXYTOCIN/0.9 % SODIUM CHLORIDE 10 UNITS/500 ML PLAST..BAG 6 UNIT IV (06:15)
[2024-01-22 06:28] LABS: Amphetamine Screen Urine NEGATIVE (NEGATIVE); Barbiturates Screen Urine NEGATIVE (NEGATIVE); Benzodiazepines Screen Urine NEGATIVE (NEGATIVE); Buprenorphine Screen Urine NEGATIVE (NEGATIVE); Cannabinoid Screen Urine NEGATIVE (NEGATIVE); Cocaine Screen Urine NEGATIVE (NEGATIVE); Methadone Screen Urine NEGATIVE (NEGATIVE); Methamphetamines Screen Urine NEGATIVE (NEGATIVE); Opiate Screen Urine NEGATIVE (NEGATIVE); Oxycodone Screen Urine NEGATIVE (NEGATIVE); Phencyclidine Screen Urine NEGATIVE (NEGATIVE); Tricyclic Antidepressant Urine NEGATIVE (NEGATIVE)
[2024-01-22] MEDS: 0.9 % SODIUM CHLORIDE 1,000 ML 1000 ML IV (11:39)
[2024-01-22] MEDS: ROPIVACAINE HCL/PF 400 MG/200 ML PREMIX 8 MG EPIDURAL (12:10)
[2024-01-22] MEDS: OXYTOCIN/0.9 % SODIUM CHLORIDE 20 UNITS/1,000 ML PLAST..BAG 999 UNIT IV (15:25)
--- NOTE | 2024-01-22 15:31 | PM.OBPRCVD ---
Procedure Intrapartal events: None Induction method: per pitocin protocol Delivery augmentation: rupture of membranes and pitocin Delivery monitor: external FHT and external uterine Route of delivery: Episiotomy Description: none L&D Laceration Description: none Estimated blood loss (mL): 200 Anesthesia type: Epidural Disposition: floor Delivery date: 01/22/24 Gender: male presentation: vertex Placental delivery description: Spontaneous cord description: 3 Vessels and Nuchal Cord
[2024-01-22] MEDS: IBUPROFEN 600 MG TABLET PO (20:26)
[2024-01-23 01:56] VITALS: BP 119/74; PULSE 76; TEMP 36.7
[2024-01-23] MEDS: ACETAMINOPHEN 325 MG TABLET 650 MG PO ×2 (02:04→08:58)
[2024-01-23] MEDS: IBUPROFEN 600 MG TABLET PO ×2 (03:56→12:03)
[2024-01-23 07:56] LABS: Basophils Absolute Auto 0.1 10^3/uL (0.0-0.1); Basophils Percent Auto 0.6 % (0.2-2.0); Eosinophils Absolute Auto 0.1 10^3/uL (0.0-0.7); Hematocrit 26.9 % (36.0-48.0); Hemoglobin 8.3 g/dL (12.0-16.0); Immature Granulocytes Abs Auto 0.11 10^3/uL (0.00-0.03); Immature Granulocytes Pct Auto 0.9 % (0.0-0.5); Lymphocytes Absolute Auto 2.8 10^3/uL (1.2-3.8); Lymphocytes Percent Auto 23.4 % (20.5-60.0); Mean Corpuscular HGB Conc 30.9 g/dL (29.9-35.2); Mean Corpuscular Hemoglobin 23.3 pg (26.7-34.0); Mean Corpuscular Volume 75.6 fL (81.0-99.0); Mean Platelet Volume 8.6 fL (9.5-13.5); Monocytes Percent Auto 8.5 % (1.7-12.0); Neutrophils Absolute Auto 7.8 10^3/uL (1.4-6.5); Neutrophils Percent Auto 65.6 % (43.0-75.0); Platelet Count 216 10^3/uL (150-450); Red Blood Count 3.56 10^6/uL (4.20-5.40); Red Cell Distribution Width 15.4 % (11.0-15.0); White Blood Count 11.9 10^3/uL (4.0-11.0)
[2024-01-23] MEDS: DOCUSATE SODIUM 100 MG CAPSULE PO (08:59)
[2024-01-23 09:00] VITALS: TEMP 36.5
[2024-01-23 09:01] VITALS: BP 129/81; PULSE 71
--- NOTE | 2024-01-23 13:01 | P.OBPN_ITS ---
OB - PN: Subj Subjective Patient comments: no complaints and pain well controlled [place] status: doing well Exam Constitutional Vital Signs, click to edit/add: Last Vital Signs Temp 97.7 F 01/23/24 09:00 Pulse 71 01/23/24 09:01 Resp 12 01/23/24 09:00 BP 129/81 01/23/24 09:01 O2 Del Method Room Air 01/23/24 09:00 Documenting provider has reviewed patient's vital signs: yes Common normals: no apparent distress Respiratory Common normals: normal respiratory effort and clear to auscultation bilaterally Cardio Common normals: regular rate and regular rhythm GI Common normals: Normal to inspection, nondistended, normoactive bowel sounds present Extremity Common normals: normal to inspection and no calf tenderness Results Labs Labs: Short CBC 01/23/24 Range/Units 07:37 WBC 11.9 H (4.0-11.0) 10^3/uL Hgb 8.3 L (12.0-16.0) g/dL Hct 26.9 L (36.0-48.0) % Plt Count 216 (150-450) 10^3/uL OB - PN: A/P Plan - Vaginal Delivery day: 1 Plan: routine care, discharge home and follow up 6 weeks Time Spent with Patient Time: Total time spent is greater than 50% in coordination of care (as documented) at patient's floor/unit and/or counseling patient: Total time spent with greater than 50% in coordination of care (as documented) at patient's floor/unit and/or counseling patient: less than 15 minutes
[2024-01-23 17:16] VITALS: BP 135/88; PULSE 75
[2024-01-23 17:26] VITALS: TEMP 36.9
== END 2024-01-23 18:06 | disposition home or self-care (01) | DRG 807 ==
PROVIDERS: Admitting Provider Obstetrics & Gynecology; Visit Provider Obstetrics & Gynecology
DX: O69.81X0 Labor and delivery complicated by cord around neck, without compression, not applicable or unspecified (principal); Z37.0 Single live birth; Z3A.39 39 weeks gestation of pregnancy
CPT/HCPCS: 36415; 51701; 59050; 59410; 80307; 85025; 85027; 86850; 86900; 86901; 96365; 96366; 96376; J2704; J2795